=== PATIENT | male | born 1965 | race Caucasian/White ===

== ENCOUNTER 2022-10-15 11:03 | Outpatient (OUT) | payer OTHER, SELFPAY ==
--- NOTE | 2022-10-15 | XR_ITS ---
[address] [address] Patient Name: SANDRA CHRISTIAN MRN: [id number] date: 1965 Sex: M Assigned Patient Location: Current Patient Location: Accession/Order Number: [id number] Exam Date: 10/15/2022 11:13 Report Date: 10/15/2022 12:54 At the request of: VICKIE HART Procedure: XR ankle LT min 3V EXAM: XR ankle LT min 3V HISTORY: LEFT ANKLE PAIN COMPARISON: None. TECHNIQUE: 3 views Findings/impression: Status post intramedullary steffi fixation of the distal tibia to the calcaneus with fixation pins. Intact hardware. Moderate to severe degenerative changes of the ankle joint. Status post resection of the distal fibula. Surgical margins appears clean. Soft tissue swelling. Electronically authenticated by: FERN LOPEZ Date: 10/15/2022 12:54
== END 2022-10-15 11:04 | disposition home or self-care (01) ==
LOC: WC 11:10
PROVIDERS: PCP Nurse Practitioner Family; Visit Provider Podiatrist Foot & Ankle Surgery
DX: M25.572 Pain in left ankle and joints of left foot (principal)
CPT/HCPCS: 73610

== ENCOUNTER 2022-10-21 08:55 | Outpatient (OUT) | payer OTHER, SELFPAY ==
--- NOTE | 2022-10-21 09:59 | PM.PRESUREVA ---
History of Present Illness History of Present Illness Chief complaint: Hammertoes left foot Narrative: Patient presents for preadmission testing. Please see HPI from Dr. Chiang dated 10/15/2022. The patient reports that he was diagnosed with Parkinson's disease just over a year ago, and he has been established for care at the [facility]. He states he's had a 20+ pound unintentional weight loss in the past four months which he relates to a decrease in his appetite. He states he has had an adjustment to his carbidopa/levodopa recently due to increased tremors at night. Review of Systems ROS Narrative REVIEW OF SYSTEMS: Negative except as stated in HPI, ten or more systems reviewed. Constitutional: No fever , chills, weakness ENT: No sore throat or epistaxis Cardiovascular: No edema, chest pain, palpitations, or activity intolerance Respiratory: No shortness of breath, cough, or wheezing Gastrointestinal: No abdominal pain, constipation, diarrhea, or vomiting Genitourinary: No dysuria or hematuria Psychiatric: No mood changes [facility] Medical History (Updated 10/21/22 @ 09:37 by Naomi Gee NP) Surgical History (Updated 10/21/22 @ 09:26 by Naomi Gee NP) (06/19/22) (~07/23/21) (06/20/21) (06/17/21) (02/18/21) (~2019) (~2018) (~2020) Family History (Updated 10/21/22 @ 09:19 by Naomi Gee NP) Other Dementia Social History (Updated 10/21/22 @ 09:34 by Naomi Gee NP) Within the past year, how often did you have a drink containing alcohol: never Score interpretation: A score less than 4 is consistent with normal alcohol consumption. Smoking status: Current every day smoker What tobacco products do you use: cigarettes Pack-years instructions: Please document either packs per day or cigarettes per day in order for pack years to calculate correctly. If using both packs per day and cigarettes per day, please make sure that they denote the same thing. If they differ, pack-years will calculate based on packs per day. Packs Per Day Cigarettes Per Day 1/4 of a pack 5 1/2 a pack 10 3/4 of a pack 15 1 pack 20 1.5 pack 30 2 packs 40 2.5 packs 50 3 packs 60 Packs per day: 1 Years smoked: 40 Smoking pack-years: 40.00 Non-prescribed substance use: denies use Highest level of school completed/degree received: high school graduate Meds Home Medications and Allergies Home Medications Medication Instructions Recorded Confirmed Type carbidopa 25 mg-levodopa 100 mg 1 tab PO QID 10/21/22 10/21/22 History tablet multivitamin 1 tab PO DAILY 10/21/22 10/21/22 History naproxen sodium 220 mg capsule 220 mg PO BID PRN pain 10/21/22 10/21/22 History (Aleve) oxycodone-acetaminophen 5 mg-325 1 tab PO Q8H 10/21/22 10/21/22 History mg tablet pregabalin 50 mg capsule 50 mg PO Q12H 10/21/22 10/21/22 History sulfamethoxazole 800 1 tab PO Q12H 10/21/22 10/21/22 History mg-trimethoprim 160 mg tablet Allergies Allergy/AdvReac Type Severity Reaction Status Date / Time vancomycin Allergy Hives Verified 10/21/22 09:19 Exam Narrative Exam Narrative: Constitutional: Awake, alert, comfortable, well-appearing, nontoxic, interactive, vital signs as charted Head: Normocephalic, atraumatic Neck: Supple, normal appearance, normal range of motion, no meningeal signs, no lymphadenopathy Respiratory: No respiratory distress, breath sounds clear Cardiovascular: Regular rate and rhythm, strong and regular heart tones Skin: No rashes or induration, no lesions, only visible skin inspected Neuro: Patient ambulates with an antalgic rigid gait, obvious tremor bilateral upper extremities Psychiatric: Oriented ?3, normal affect Assessment and Plan Assessment and Plan (1) Will: Plan Partial left 4th and 5th toe amputations scheduled with Dr. Chiang 10/27/2022.
[2022-10-21 10:21] LABS: Basophils Absolute Auto 0.1 10^3/uL (0.0-0.1); Basophils Percent Auto 1.8 % (0.2-2.0); Eosinophils Absolute Auto 0.1 10^3/uL (0.0-0.7); Eosinophils Percent Auto 2.6 % (0.9-7.0); Hematocrit 44.5 % (42.0-54.0); Hemoglobin 14.9 g/dL (14.0-18.0); Immature Granulocytes Abs Auto 0.02 10^3/uL (0.00-0.03); Immature Granulocytes Pct Auto 0.4 % (0.0-0.5); Lymphocytes Absolute Auto 1.1 10^3/uL (1.2-3.8); Lymphocytes Percent Auto 24.7 % (20.5-60.0); Mean Corpuscular HGB Conc 33.5 g/dL (29.9-35.2); Mean Corpuscular Hemoglobin 29.4 pg (25.9-34.0); Mean Corpuscular Volume 87.8 fL (80.0-94.0); Mean Platelet Volume 12.2 fL (9.5-13.5); Monocytes Absolute Auto 0.5 10^3/uL (0.3-0.8); Monocytes Percent Auto 11.4 % (1.7-12.0); Neutrophils Absolute Auto 2.7 10^3/uL (1.4-6.5); Neutrophils Percent Auto 59.1 % (43.0-75.0); Platelet Count 199 10^3/uL (150-450); Red Blood Count 5.07 10^6/uL (4.70-6.10); Red Cell Distribution Width 13.2 % (11.0-15.0); White Blood Count 4.6 10^3/uL (4.0-11.0)
[2022-10-21 11:18] LABS: Alanine Aminotransferase 9 U/L (16-63); Albumin Globulin Ratio 1.1; Albumin Level 3.8 g/dL (3.4-5.0); Alkaline Phosphatase 100 U/L (46-116); Anion Gap 13.4; Aspartate Amino Transferase 12 U/L (15-37); BUN Creatinine Ratio 18.5; Bilirubin Total 0.5 mg/dL (0.2-1.0); Chloride 104 mmol/L (98-107); Estimated GFR (African America >60 (>=60); Estimated GFR (Non-African Ame >60 (>=60); Globulin 3.5 g/dL; Glucose 94 mg/dL (74-106); Potassium 4.4 mmol/L (3.5-5.1); Sodium 139 mmol/L (136-145); Total Protein 7.3 g/dL (6.4-8.2)
== END 2022-10-21 08:56 | disposition home or self-care (01) ==
LOC: PST 08:55
PROVIDERS: Nurse Practitioner; PCP Nurse Practitioner Family; Visit Provider Podiatrist Foot & Ankle Surgery
DX: Z01.812 Encounter for preprocedural laboratory examination (principal); Z01.818 Encounter for other preprocedural examination; M20.42 Other hammer toe(s) (acquired), left foot; I10 Essential (primary) hypertension; R63.4 Abnormal weight loss
CPT/HCPCS: 36415; 80048; 80053; 85025; G0463

== ENCOUNTER 2022-10-27 10:36 | Day surgery (SDC) | payer OTHER, SELFPAY ==
[2022-10-21 09:35] VITALS: BP 107/79; PULSE 62; RESP 14; TEMP 36.4; O2SAT 97; BMI 20.8
[2022-10-27] VITALS (10 sets, daily range): BP systolic 118–147; BP diastolic 76–86; PULSE 52–97; RESP 12–21; TEMP 36.1–36.2; O2SAT 97–100; BMI 20.9
[2022-10-27 11:04] LABS: Glucometer 87 mg/dL (74-106)
[2022-10-27] MEDS: LACTATED RINGER'S SOLUTION 1,000 ML 50 ML IV (11:16)
[2022-10-27] MEDS: CEFAZOLIN SODIUM/DEXTROSE,ISO 2 GM/50 ML PIGGYBACK IV (13:24)
--- NOTE | 2022-10-27 14:03 | P.ORON_ITS ---
Brief Operative Note Date of procedure: 10/27/22 Pre-op diagnosis: left hammertoe contractures, recurrent 4th and 5th toes Post-op diagnosis: same Procedure: PROCEDURES PERFORMED: Partial digital amputation of left 4th and 5th toes PROCEDURE IN DETAIL: Patient was identified in pre op and consent was reviewed. Correct side and site were identified and marked. Pre-op antibiotics were started. Patient was brought to OR suite and place on table in a supine position. General anesthesia was administered. Tourniquet applied. Operative extremity was prepped and draped in usual sterile fashion. Formal time-out was performed and the foot/ankle were exsanguinated and tourniquet inflated. A fishmouth incision was placed on the 4th toe. Full-thickness incision was taken down to bone to the level of the proximal interphalangeal joint. and all soft tissue attachments were released allowing disarticulation of the digit. The amputated digit was passed back table and sent for specimen. Tendinous structures were cut proximally. Surgical site was irrigated with normal saline. a rongeur was used to contour the distal aspect of the proximal phalanx for easy closure. No signs of infection were noted.surgical site was irrigated with copious saline. The incision was then closed in layers. and inspected for any nonviable tissue which was removed. A fishmouth incision was placed on the 5th toe. Full-thickness incision was taken down to bone to the level of the proximal interphalangeal joint. and all soft tissue attachments were released allowing disarticulation of the digit. The amputated digit was passed back table and sent for specimen. Tendinous structure s were cut proximally. Surgical site was irrigated with normal saline. a rongeur was used to contour the distal aspect of the proximal phalanx for easy closure. No signs of infection were noted.surgical site was irrigated with copious saline. The incision was then closed in layers. and inspected for any nonviable tissue which was removed. a bulky dry sterile dressing was applied followed by a surgical shoe. Patient tolerated procedure and anesthesia well transferred to the recovery room with vital signs stable and brisk capillary refill to all digits POSTOPERATIVE PLAN: Discharge home under family's care Post op instructions provided verbally and written prescription(s) were placed in chart WBAT in surgical shoe or cam boot x3 wks Follow-up in 2-3 weeks Implants: none Anesthesia: ANTOINE Surgeon: Kash Chiang Medical File Clerk: Raghu Ferrer Estimated blood loss (mL): 10 Pathology: other (toes 4 & 5) Condition: stable Disposition: PACU Preoperative Details Reason for procedure: patient is a 56-year-old male well-known to my practice was undergone multiple left foot and ankle procedures including ankle/hindfoot fusion and most recently correction of hammertoes 1-5 which was performed on 06/19/22. Hammertoe correction surgery was complicated by local infection of the 4th toe and loosening of the hardware which required removal. After removal of the screw in his 4th toe infection resolved with oral antibiotics. Unfortunately he recurrence of contractures predominate of his 4th toe and less so of his 5th toe which have caused pain and difficulty with shoes. He attempted multiple methods of padding and taping however with his Parkinson's he has difficulty with taping. Given his degree of pain which is not improved for a couple of months now she wished to undergo partial digital amputation. He was educated all potential risks and benefits of surgical versus continued nonsurgical treatment.
[2022-10-27] MEDS: BUPIVACAINE HCL 0.5% PF 50 MG/10 ML VIAL INJ (14:25)
--- NOTE | 2022-10-27 14:27 | XR_ITS ---
The [address] [address] Patient Name: SANDRA CHRISTIAN MRN: [id number] date: 1965 Sex: M Assigned Patient Location: [facility] Current Patient Location: [facility] Accession/Order Number: [id number] Exam Date: 10/27/2022 14:58 Report Date: 10/27/2022 15:42 At the request of: PAN GARSIA Procedure: XR foot LT min 3V EXAM: XR foot LT min 3V HISTORY: postop COMPARISON: None. TECHNIQUE: 3 view study FINDINGS: There are findings associated with previous ankle/hindfoot arthrodesis with a tibial steffi extending through talus and calcaneus. There is at least one interlocking screw proximally and 2 interlocking screws distally. The distal fibula has been resected. 2 screws crisscross the interphalangeal joint of the first toe. A screw traverses the phalanges of the second toe and similarly, a screw traverses the phalanges of the third toe. The middle and distal phalanges of the fourth and fifth toes have been resected. There is a mild hallux valgus deformity with mild narrowing at the first MP joint. Mild soft tissue swelling about the foot and ankle. XR/XR foot LT min 3V IMPRESSION: Postoperative changes at the ankle/hindfoot and all 5 toes. Mild hallux valgus deformity with early degenerative changes at the first MP joint. Electronically authenticated by: Prisca BURNHAM Date: 10/27/2022 15:42
[2022-10-27 14:51] LABS: Glucometer 106 mg/dL (74-106)
--- NOTE | 2022-10-27 15:07 | PC.NURSE ---
toes were amputated 4th and 5 toes on the left foot. no drainage dressing clean dry and intact.
== END 2022-10-27 15:45 | disposition home or self-care (01) ==
PROVIDERS: PCP Nurse Practitioner Family; Visit Provider Podiatrist Foot & Ankle Surgery
PROC: (CPT 1480; principal; 2022-10-27 11:50)
DX: M20.42 Other hammer toe(s) (acquired), left foot (principal); I10 Essential (primary) hypertension; G20 Parkinson's disease; R63.4 Abnormal weight loss; F17.210 Nicotine dependence, cigarettes, uncomplicated; Z79.82 Long term (current) use of aspirin; Z79.899 Other long term (current) drug therapy; Z98.1 Arthrodesis status
CPT/HCPCS: 28825 ×2; 36415; 73630; 82948; 88305; 88311; J2704

== ENCOUNTER 2022-12-30 09:43 | Outpatient (OUT) | payer OTHER, SELFPAY ==
--- NOTE | 2022-12-30 | XR_ITS ---
The [address] [address] Patient Name: SANDRA CHRISTIAN MRN: [id number] date: 1965 Sex: M Assigned Patient Location: [facility] Current Patient Location: [facility] Accession/Order Number: [id number] Exam Date: 12/30/2022 10:00 Report Date: 12/30/2022 22:38 At the request of: VICKIE HART Procedure: XR ankle LT min 3V EXAM: XR ankle LT min 3V, XR foot LT min 3V HISTORY: Postoperative ankle pain COMPARISON: Foot x-rays 08/26/2022 and 10/27/2022. Ankle x-rays 10/15/2022 TECHNIQUE: 3 views of the ankle FINDINGS: IMPRESSION: Again demonstrated is at the anterior 32.6 mm of the posterior to anterior calcaneal screw is lying within the plantar subcutaneous soft tissues beneath the midfoot. Patient has undergone retrograde intramedullary fixation of the calcaneus, talus and tibia. There is no osseous incorporation of the attempted arthrodesis of the talocrural articulation. The subtalar arthrodesis appears ossified. Again demonstrated is lucency measuring approximately 3.5 mm between the intramedullary nail and the tibia, and approximately 3.3 mm between the intramedullary nail in the calcaneus. There has been resection of the distal fibula. There has been amputation of the fourth and fifth distal and middle phalanges and the head of the proximal phalanges. 2 screw attempted retrograde arthrodesis of the first IP joint with no osseous incorporation. Single screw retrograde attempted arthrodesis of the second and third phalanges with no osseous incorporation of the PIP and DIP joint spaces. Moderate degenerative changes of the first metatarsophalangeal joint. No visualized acute fracture, dislocation, subluxation or osseous lesion. No visualized discrete acute soft tissue edema. Electronically authenticated by: SHIRLEY RUIZ Date: 12/30/2022 22:38
--- NOTE | 2022-12-30 | XR_ITS ---
The [address] [address] Patient Name: SANDRA CHRISTIAN MRN: [id number] date: 1965 Sex: M Assigned Patient Location: [facility] Current Patient Location: [facility] Accession/Order Number: [id number] Exam Date: 12/30/2022 10:00 Report Date: 12/30/2022 22:38 At the request of: VICKIE HART Procedure: XR foot LT min 3V EXAM: XR ankle LT min 3V, XR foot LT min 3V HISTORY: Postoperative ankle pain COMPARISON: Foot x-rays 08/26/2022 and 10/27/2022. Ankle x-rays 10/15/2022 TECHNIQUE: 3 views of the ankle FINDINGS: IMPRESSION: Again demonstrated is at the anterior 32.6 mm of the posterior to anterior calcaneal screw is lying within the plantar subcutaneous soft tissues beneath the midfoot. Patient has undergone retrograde intramedullary fixation of the calcaneus, talus and tibia. There is no osseous incorporation of the attempted arthrodesis of the talocrural articulation. The subtalar arthrodesis appears ossified. Again demonstrated is lucency measuring approximately 3.5 mm between the intramedullary nail and the tibia, and approximately 3.3 mm between the intramedullary nail in the calcaneus. There has been resection of the distal fibula. There has been amputation of the fourth and fifth distal and middle phalanges and the head of the proximal phalanges. 2 screw attempted retrograde arthrodesis of the first IP joint with no osseous incorporation. Single screw retrograde attempted arthrodesis of the second and third phalanges with no osseous incorporation of the PIP and DIP joint spaces. Moderate degenerative changes of the first metatarsophalangeal joint. No visualized acute fracture, dislocation, subluxation or osseous lesion. No visualized discrete acute soft tissue edema. Electronically authenticated by: SHIRLEY RUIZ Date: 12/30/2022 22:38
== END 2022-12-30 09:44 | disposition home or self-care (01) ==
LOC: RAD 09:43
PROVIDERS: PCP Nurse Practitioner Family; Visit Provider Podiatrist Foot & Ankle Surgery
DX: M25.572 Pain in left ankle and joints of left foot (principal)
CPT/HCPCS: 73610; 73630

== ENCOUNTER 2023-01-05 09:15 | Outpatient (OUT) | payer OTHER, SELFPAY ==
--- NOTE | 2023-01-05 09:19 | CT_ITS ---
[address] [address] Patient Name: SANDRA CHRISTIAN MRN: [id number] date: 1965 Sex: M Assigned Patient Location: CT Current Patient Location: CT Accession/Order Number: [id number] Exam Date: 01/05/2023 09:30 Report Date: 01/05/2023 16:18 At the request of: VICKIE HART Procedure: CT ankle LT wo con EXAMINATION: CT ankle LT wo con HISTORY: Post Traumatic Arthritis Left Ankle COMPARISON: CT ankle left 11/14/2021 TECHNIQUE: Multi-planar CT images were created without and/or with IV contrast according to examination type. Dose reduction techniques were achieved by using automated exposure control and/or adjustment of mA and/or kV according to patient size and/or use of iterative reconstruction technique. FINDINGS: BONES: Mechanical fusion ankle joint and hindfoot via intramedullary steffi and locking screws; no hardware fracture, loosening, or appreciable change in alignment/positioning. Advanced degenerative changes of the ankle joint and hindfoot. No fracture, dislocation, or acute abnormality. Prior resection of distal fibula. SOFT TISSUES: Stable areas of chronic scarring. EFFUSION: None visible. OTHER: Negative. CT/CT ankle LT wo con IMPRESSION: 1. Stable surgical changes without evidence of hardware failure or change in alignment. 2. Stable advanced degenerative changes. Electronically authenticated by: SAURAV KERNS Date: 01/05/2023 16:18
== END 2023-01-05 09:16 | disposition home or self-care (01) ==
LOC: CT 09:16
PROVIDERS: PCP Nurse Practitioner Family; Visit Provider Podiatrist Foot & Ankle Surgery
DX: M19.172 Post-traumatic osteoarthritis, left ankle and foot (principal)
CPT/HCPCS: 73700

== ENCOUNTER 2023-06-18 12:52 | Outpatient (OUT) | payer OTHER, SELFPAY ==
--- NOTE | 2023-06-18 | XR_ITS ---
The [address] [address] Patient Name: SANDRA CHRISTIAN MRN: [id number] date: 1965 Sex: M Assigned Patient Location: Current Patient Location: Accession/Order Number: [id number] Exam Date: 06/18/2023 12:58 Report Date: 06/20/2023 06:10 At the request of: KAR RAPHAEL Procedure: XR foot LT min 3V PROCEDURE: XR foot LT min 3V, XR ankle LT min 3V HISTORY: LEFT FOOT PAIN , left ankle pain, swelling, drainage COMPARISON: XR foot and ankle 12/30/2022 FINDINGS: BONES:Prior mechanical fusion of the interphalangeal joints of the first, second, third toes via lag screws. 3 mm backing out of the screw within the second toe, and bone erosion within tip of second distal phalanx surrounding the screw. Partial resection of fourth and 5th toes. Ankle and hindfoot fusion via intramedullary steffi and locking screws; unchanged. Prior resection of distal fibula. SOFT TISSUES:Soft tissue swelling involving tip of second toe. EFFUSION:None visible. OTHER: Negative. XR/XR foot LT min 3V IMPRESSION: 1. Mild backing out of the screw within the second toe and slight osseous changes involving the tip of the second distal phalanx concerning for osteomyelitis. 2. Stable appearance of remaining surgical changes. Electronically authenticated by: SAURAV KERNS Date: 06/20/2023 06:10
--- NOTE | 2023-06-18 | XR_ITS ---
The [address] [address] Patient Name: SANDRA CHRISTIAN MRN: [id number] date: 1965 Sex: M Assigned Patient Location: Current Patient Location: Accession/Order Number: [id number] Exam Date: 06/18/2023 12:58 Report Date: 06/20/2023 06:10 At the request of: KAR RAPHAEL Procedure: XR ankle LT min 3V PROCEDURE: XR foot LT min 3V, XR ankle LT min 3V HISTORY: LEFT FOOT PAIN , left ankle pain, swelling, drainage COMPARISON: XR foot and ankle 12/30/2022 FINDINGS: BONES:Prior mechanical fusion of the interphalangeal joints of the first, second, third toes via lag screws. 3 mm backing out of the screw within the second toe, and bone erosion within tip of second distal phalanx surrounding the screw. Partial resection of fourth and 5th toes. Ankle and hindfoot fusion via intramedullary steffi and locking screws; unchanged. Prior resection of distal fibula. SOFT TISSUES:Soft tissue swelling involving tip of second toe. EFFUSION:None visible. OTHER: Negative. XR/XR ankle LT min 3V IMPRESSION: 1. Mild backing out of the screw within the second toe and slight osseous changes involving the tip of the second distal phalanx concerning for osteomyelitis. 2. Stable appearance of remaining surgical changes. Electronically authenticated by: SAURAV KERNS Date: 06/20/2023 06:10
== END 2023-06-18 12:53 | disposition home or self-care (01) ==
LOC: EC 12:52
PROVIDERS: PCP Nurse Practitioner Family; Visit Provider Physician Assistant
DX: M19.172 Post-traumatic osteoarthritis, left ankle and foot (principal); Z98.890 Other specified postprocedural states
CPT/HCPCS: 73610; 73630

== ENCOUNTER 2023-06-19 14:23 | Outpatient (OUT) | payer OTHER, SELFPAY | END 2023-06-19 14:24 | disposition home or self-care (01) | LOC: PST 14:24 | PROVIDERS: PCP Nurse Practitioner Family; Visit Provider Podiatrist Foot & Ankle Surgery | DX: Z01.818 Encounter for other preprocedural examination (principal); T84.84XA Pain due to internal orthopedic prosthetic devices, implants and grafts, initial encounter; L03.032 Cellulitis of left toe ==

== ENCOUNTER 2023-06-23 09:20 | Emergency (ER) | payer OTHER, SELFPAY ==
[2023-06-23 09:25] VITALS: BP 146/101; PULSE 96; RESP 18; TEMP 36.8; O2SAT 98; BMI 22.4
[2023-06-23 09:35] VITALS: PULSE 69
--- NOTE | 2023-06-23 09:53 | ED_ITS ---
HPI - General Adult General Chief complaint: Extremity Problem, Nontraumatic Stated complaint: pain in left toe Time Seen by Provider: 06/23/23 09:23 Source: patient Mode of arrival: Wheelchair Limitations: physical limitation History of Present Illness HPI narrative: 57-year-old male to the emergency department she complained of pain in his left 2nd toe. Patient has had ongoing discomfort in this toe for some time. He was scheduled to have an amputation of this toe yesterday however this the surgical appointment due to an issue getting a ride. He is on Augmentin and Bactrim at home for this. His facing machine operator is aware of his continuing pain. He refilled his Percocet just two days ago and has been taking this with moderate relief of symptoms. Patient reports he continues to hurt and he just wants a cut off at this point. Related Data Home Medications Medication Instructions Recorded Confirmed carbidopa 25 mg-levodopa 100 mg 1 tab PO QID 10/21/22 06/23/23 tablet multivitamin 1 tab PO DAILY 10/21/22 06/23/23 naproxen sodium 220 mg capsule 220 mg PO BID PRN pain 10/21/22 06/23/23 (Aleve) oxycodone-acetaminophen 5 mg-325 1 tab PO Q8H 10/21/22 06/23/23 mg tablet pregabalin 50 mg capsule 50 mg PO Q12H 10/21/22 06/23/23 amoxicillin 875 mg-potassium 1 tab PO Q12H 06/23/23 06/23/23 clavulanate 125 mg tablet mirtazapine 15 mg tablet 15 mg PO .QHS 06/23/23 06/23/23 sulfamethoxazole 800 1 tab PO Q12H 06/23/23 06/23/23 mg-trimethoprim 160 mg tablet Previous Rx's Medication Instructions Recorded cephalexin 500 mg capsule 500 mg PO Q6H 7 days #28 caps 06/23/23 Allergies Allergy/AdvReac Type Severity Reaction Status Date / Time vancomycin Allergy Hives Verified 06/23/23 09:29 Review of Systems ROS Status of ROS 10 or more systems reviewed and unremark able except as noted in history and below [facility] Medical History (Updated 06/23/23 @ 09:45 by Ryan Shoemaker MD) Neck pain ?M54.2 - Cervicalgia (ICD-10) Arthritis ?M19.90 - Unspecified osteoarthritis, unspecified site (ICD-10) Insomnia ?G47.00 - Insomnia, unspecified (ICD-10) Depression ?F32.A - Depression, unspecified (ICD-10) Anxiety ?F41.9 - Anxiety disorder, unspecified (ICD-10) Kidney stones ?N20.0 - Calculus of kidney (ICD-10) Hammertoe ?M20.40 - Other hammer toe(s) (acquired), unspecified foot (ICD-10) Tremor ?R25.1 - Tremor, unspecified (ICD-10) Parkinson disease ?G20 - Parkinson's disease (ICD-10) Acquired hallux malleus ?M20.30 - Hallux varus (acquired), unspecified foot (ICD-10) Surgical History (Updated 10/21/22 @ 09:26 by Naomi Gee NP) History of appendectomy ?Z90.49 - Acquired absence of other specified parts of digestive tract (ICD- 10) H/O arthroscopy of shoulder ?Z98.890 - Other specified postprocedural states (ICD-10) History of total hip replacement (~2017) ?Z96.649 - Presence of unspecified artificial hip joint (ICD-10) History of total hip replacement (~2018) ?Z96.649 - Presence of unspecified artificial hip joint (ICD-10) Status post ORIF of fracture of ankle (~2020) ?Z98.890 - Other specified postprocedural states (ICD-10) ?Z87.81 - Personal history of (healed) traumatic fracture (ICD-10) History of ankle surgery (02/18/21) ?Z98.890 - Other specified postprocedural states (ICD-10) Status post peripherally inserted central catheter (PICC) central line placement ?Z95.828 - Presence of other vascular implants and grafts (ICD-10) H/O foot surgery (06/17/21) ?Z98.890 - Other specified postprocedural states (ICD-10) H/O foot surgery (06/20/21) ?Z98.890 - Other specified postprocedural states (ICD-10) H/O foot surgery (~07/23/21) ?Z98.890 - Other specified postprocedural states (ICD-10) H/O foot surgery (06/19/22) ?Z98.890 - Other specified postprocedural states (ICD-10) Family History (Updated 10/21/22 @ 09:19 by Naomi Gee NP) Other Dementia Social History (Updated 06/19/23 @ 12:58 by Vicky Junior RN) Smoking status: Current some day smoker Second hand tobacco smoke exposure: No Non-prescribed substance use: denies use Previous occupational history: disability Highest level of school completed/degree received: high school graduate Exam Narrative Exam Narrative: VITALS: I have reviewed the triage vital signs. GENERAL: Well developed, well appearing adult in no acute distress. NEURO: Alert and oriented. Moves all extremities. Face is symmetric and expressive. EYES: PERRL. No scleral icterus or conjunctival injection. No discharge. HENT: Normocephalic, atraumatic. Hearing is grossly intact. Nares grossly patent and without discharge. Mucous membranes moist. NECK: No JVD. Patient moves neck without restriction. LEFT FOOT: Toes 4&5 are surgically absent. Limit similar color and temperature to the contralateral extremity. DP and PT pulses are intact. There is some mild edema, redness, warmth to the 2nd digit. SKIN: Warm and dry. Normal turgor. No rash or lesions appreciated. PSYCH: Mood, affect, and interaction is appropriate to the setting. Constitutional Vital Signs, click to edit/add: Last Vital Signs Temp 98.2 F 06/23/23 09:25 Pulse 69 06/23/23 09:35 Resp 18 06/23/23 09:25 BP 146/101 H 06/23/23 09:25 Pulse Ox 98 06/23/23 09:25 O2 Del Method Room Air 06/23/23 09:25 Course Vital Signs Vital signs: Vital Signs Temperature 98.2 F 06/23/23 09:25 Pulse Rate 96 H 06/23/23 09:25 Respiratory Rate 18 06/23/23 09:25 Blood Pressure 146/101 H 06/23/23 09:25 Pulse Oximetry 98 06/23/23 09:25 Oxygen Delivery Method Room Air 06/23/23 09:25 Temperature 98.2 F 06/23/23 09:25 Pulse Rate 69 06/23/23 09:35 Respiratory Rate 18 06/23/23 09:25 Blood Pressure 146/101 H 06/23/23 09:25 Pulse Oximetry 98 06/23/23 09:25 Oxygen Delivery Method Room Air 06/23/23 09:25 Medical Decision Making MDM Narrative Medical decision making narrative: 57-year-old male with known hardware failure/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 Vital stable, the patient is afebrile. He does appear to have a mild cellulitis. He is currently on Augmentin and Bactrim. He is taking Percocet at home for pain as prescribed by his facing machine operator. Case was discussed with Dr. Chiang via telephone. Patient is scheduled for amputation on Thursday of this toe. Current regimen unless he becomes septic and needs admission. No further recommendations. Patient is metabolically stable. He is not septic. He has a mild infection. We'll discontinue Augmentin and place him on 4 times a day Keflex. He'll continue taking his Percocet for pain. He is updated that Dr. Chiang is out of town and the release and eventual bee on Thursday. The patient agrees with this plan. Return precautions were discussed. All questions were answered. The patient was discharged home. Medical Records Medical records reviewed: Yes I reviewed the patient's medical records Discharge Plan Discharge Stand Alone Forms: Portal Instructions Chief Complaint: Extremity Problem, Nontraumatic Clinical Impression: Cellulitis Patient Disposition: Home, Self-Care Time of Disposition Decision: 09:45 Condition: Good Mode of Transportation: Private Vehicle Prescriptions / Home Meds: New cephalexin 500 mg capsule 500 mg PO Q6H 7 Days Qty: 28 0RF No Action carbidopa-levodopa 25-100 mg tablet 1 tab PO QID oxycodone-acetaminophen 5-325 mg tablet 1 tab PO Q8H pregabalin 50 mg capsule 50 mg PO Q12H naproxen sodium [Aleve] 220 mg capsule 220 mg PO BID PRN (Reason: pain) multivitamin Tablet 1 tab PO DAILY amoxicillin-pot clavulanate 875-125 mg tablet 1 tab PO Q12H sulfamethoxazole-trimethoprim 800-160 mg tablet 1 tab PO Q12H mirtazapine 15 mg tablet 15 mg PO .QHS Print Language: Japanese Instructions: Cellulitis (ED) Additional Instructions: Start Keflex. Stop Augmentin. Keep surgical appt on Thursday. Referrals: MONIQUE MUÑOZ [Primary Care Provider] - 1 week Kash Chiang DPM [Physician] - 1 week (Follow-up with Андрей as scheduled on Thursday. )
== END 2023-06-23 09:55 | disposition home or self-care (01) ==
PROVIDERS: Emergency Provider Student in an Organized Health Care Education/Training Program; PCP Nurse Practitioner Family
DX: L03.032 Cellulitis of left toe (principal); Z79.899 Other long term (current) drug therapy; M19.90 Unspecified osteoarthritis, unspecified site; G47.00 Insomnia, unspecified; F32.A Depression, unspecified; F41.9 Anxiety disorder, unspecified; Z87.442 Personal history of urinary calculi; G20.A1 Parkinson's disease without dyskinesia, without mention of fluctuations; Z96.649 Presence of unspecified artificial hip joint; Z98.890 Other specified postprocedural states; Z87.81 Personal history of (healed) traumatic fracture; Z90.49 Acquired absence of other specified parts of digestive tract; F17.210 Nicotine dependence, cigarettes, uncomplicated; Z89.422 Acquired absence of other left toe(s)
CPT/HCPCS: 99283

== ENCOUNTER 2023-07-20 08:38 | Outpatient (OUT) | payer OTHER, SELFPAY ==
--- OUTSIDE RECORDS SUMMARY | 2023-07-20 08:52 | XMS_ITS | CCD ---
Author Organization [facility] Care Team Providers Care Chief Operator Hydroformer Name Role Phone SUMAN NGUYEN JR Admitting Unavailable SUMAN NGUYEN JR Attending Unavailable SUMAN NGUYEN JR Referring Unavailable KATE MUELLER (NANCIE) Referring Unava ilable SUMAN NGUYEN JR Admitting Unavailable SUMAN NGUYEN JR Attending Unavailable Michael Shah Unavailable Andi Eason Unavailable JALYN Muñoz Primary Care Provider DO James Rodriguez Attending Provider [phone] EDE Fair Attending Provider [phone] NANCIE Oliver Attending Provider [phone] EDE Hart Attending Provider [phone] JALYN Muñoz Primary Care Provider [phone] Vickie Hart Admitting Unavailable Vickie Hart Attending Unavailable Anna Muñoz Primary Care Unavailable Evelin Oliver Admitting Unavailable Evelin Oliver Attending Unavailable Anna Muñoz Primary Care Unavailable Manjula Amar Suresh Admitting Unavailable Manjula Amar R Attending Unavailable Anna Muñoz Primary Care Unavailable James Rodriguez Admitting UnavailJames Lucas Attending UnavailAnna Toure Primary Care Unavailable Yumi, Andi Admitting Unavailable Yumi, Andi Attending Unavailable NO FAMILY, PHYSICIAN Primary Care Unavailable Yumi, Andi Admitting Unavailable Yumi, Andi Attending Unavailable Yumi, Andi Admitting Unavailable Yumi, Andi Attending Unavailable Yumi, Andi Admitting Unavailable Yumi, Andi Attending Unavailable Vickie Hart Admitting Unavailable Highlander, Peter D Attending Unavailable [facility], Services Primary Care Unavaila ble Highlander, Peter D Admitting Unavailable Highlander, Peter D Attending Unavailable [facility] Primary Care Unavaila ble Andi Eason Admitting Unavailable Andi Eason Attending Unavailable NO FAMILY, PHYSICIAN Primary Care Unavailable Highlander, Peter D Admitting Unavailable Highlander, Peter D Attending Unavailable [facility] Services Primary Care Unavaila ble Highlander, Peter D Admitting Unavailable Highlander, Peter D Attending Unavailable [facility] Services Primary Care Unavaila ble Rio Alanis Primary Care Provider Chinedu [place], Princess Unavailable [phone] WANDA, ANNA Primary Care Unavailable WEST, SHIRLEY Sapp Consulting Unavailable IJEOMA, KAR Admitting Unavailable IJEOMA, KAR Attending Unavailable IJEOMA, KAR Consulting Unavailable HOY ., DR YOU Admitting Unavailable HOY ., DR YOU Attending Unavailable WANDA, ANNA Primary Care Unavailable HOY ., DR YOU Consulting Unavailable Saurav Kerns Consulting Unavailable NADERER, DR GINNA Hart Consulting Unavailable ADY ., PAN MATTHEW Consulting Unavailable DIAB ., AFTAB Consulting Unavailable WANDA, ANNA Primary Care Unavailable HIGHLANDER, PETER D Attending Unavailable HIGHLANDER, PETER D Consulting Unavailable HIGHLANDER, PETER D Admitting Unavailable SEB GRAVES Consulting Unavailable [facility] V Consulting Unavailable WANDA, ANNA Primary Care Unavailable IJEOMA, KAR Admitting Unavailable IJEOMA, KAR Attending Unavailable IJEOMA, KAR Consulting Unavailable WANDA, ANNA Primary Care Unavailable HIGHLANDER, PETER D Admitting Unavailable Zieber, Saurav Consulting Unavailable HIGHLANDER, PETER D Attending Unavailable HIGHLANDER, PETER D Consulting Unavailable Zieber, Saurav Consulting Unavailable HIGHLANDER, PETER D Attending Unavailable HIGHLANDER, PETER D Admitting Unavailable HIGHLANDER, PETER D Consulting Unavailable WANDA, ANNA Primary Care Unavailable HIGHLANDER, PETER D Consulting Unavailable HIGHLANDER, PETER D Attending Unavailable HIGHLANDER, PETER D Admitting Unavailable KARLA MANZANO Consulting Unavailable ADY ., PAN MATTHEW Consulting Unavailable CANDICE LIEBERMAN Consulting Unavailable CHE II, CLARE Consulting Unavailable OTT ., DR FARRUKH Kimble Admitting Unavailable WANDA, ANNA Primary Care Unavailable MISC, DR REID Consulting Unavailable OTT ., DR FARRUKH Kimble Attending Unavailable OTT ., DR FARRUKH Kimble Consulting Unavailable HIGHLANDER, PETER D Admitting Unavailable HIGHLANDER, PETER D Attending Unavailable Zieber, Saurav Consulting Unavailable HIGHLANDER, VICKIE Garibay Admitting Unavailable HIGHLANDER, VICKIE Garibay Attending Unavailable HIGHLANDER, VICKIE Garibay Consulting Unavailable HIGHLANDER, VICKIE Garibay Attending Unavailable HIGHLANDER, VICKIE Garibay Admitting Unavailable HIGHLANDER, VICKIE Garibay Admitting Unavailable HIGHLANDER, VICKIE Garibay Attending Unavailable ZieberSaurav Consulting Unavailable HIGHLANDER, VICKIE Garibay Admitting Unavailable HIGHLANDER, VICKIE Garibay Attending Unavailable HIGHLANDER, VICKIE Garibay Consulting Unavailable HIGHLANDER, VICKIE Garibay Admitting Unavailable HIGHLANDER, VICKIE Garibay Attending Unavailable HIGHLANDER, VICKIE Garibay Admitting Unavailable HIGHLANDER, VICKIE Garibay Attending Unavailable Zieber, Saurav Consulting Unavailable [facility] Primary Care Unavailable HIGHLANDER, VICKIE Garibay Attending Unavailable HIGHLANDER, VICKIE Garibay Admitting Unavailable HIGHLANDER, VICKIE Garibay Consulting Unavailable OTT ., DR FARRUKH Kimble Admitting Unavailable [facility] Primary Care Unavailable OTT ., DR FARRUKH Kimble Attending Unavailable OTT ., DR FARRUKH Kimble Consulting Unavailable ZieberSaurav Consulting Unavailable [facility] Primary Care Unavailable HIGHLANDER, VICKIE Garibay Attending Unavailable HIGHLANDER, VICKIE Garibay Admitting Unavailable HIGHLANDER, VICKIE Garibay Consulting Unavailable [facility] Consulting Unavailable HIGHLANDER, VICKIE Garibay Attending Unavailable HIGHLANDER, VICKIE Garibay Admitting Unavailable HIGHLANDER, VICKIE Garibay Consulting Unavailable Zieber, Saurav Consulting Unavailable HIGHLANDER, VICKIE Garibay Attending Unavailable HIGHLANDER, VICKIE Garibay Admitting Unavailable HIGHLANDER, VICKIE Garibay Consulting Unavailable OTT ., DR FARRUKH Kimble Consulting Unavailable [facility] Care Unavailable OTT ., DR FARRUKH Kimble Admitting Unavailable HIGHLANDER, VICKIE Garibay Referring Unavailable OTT ., DR FARRUKH Kimble Attending Unavailable HIGHLANDER, VICKIE Garibay Attending Unavailable HIGHLANDER, VICKIE Garibay Admitting Unavailable RIO ALANIS Primary Care Unavailab miranda WEAVERIB, UMAR A Attending Unavailable LAURIE, UMAR A Attending Unavailable ALLANTERERRIO Primary Care Unavailab RIO Abreu Primary Care Unavailab SUMA Sanchez Referring Unavailable ALLANTERERRIO Primary Care Unavailab SUMA Sanchez Attending Unavailable LAURIE, UMAR A Referring Unavailable SCHFEITERERRIO Primary Care Unavailab le LAURIE, UMAR A Attending Unavailable WANDA ANNA S Primary Care Unavailable LIOR RAMIREZ Attending Unavailable SUMAN NGUYEN Referring Unavailable BANNER, ANNA S Primary Care Unavailable Allergies Allergy Classification Reported Allergen(s) Allergy Type Date of Onset Reaction(s) Facility (5 sources) Vancomycin; Translations: [VANCOMYCIN] Drug Allergy 2 Other: See Comments [facility] (1 source) Vancomycin Drug Allergy 2 [facility] Medications Current Medications Medication Drug Class(es) Dates Sig (Normalized) Sig (Original) acetaminophen 500 mg oral capsule (15 sources) Start: 12-26-2020 Acetaminophen 500 MG 1 capsule as needed Orally every 6-8 hrs Dec, Active Start: 12-26-2020 Acetaminophen 500 MG 1 capsule as needed Orally every 6-8 hrs Dec, Active Start: 10-23-2020 Acetaminophen 500 mg cap Take by mouth. 0 10/23/2020 Active Start: 10-23-2020 take 1000 mg by mout h every eight hours Acetaminophen Active 1000 MG PO Q8H 180 October 23, 2020 12:00am Start: 07-02-2017 End: 07-16-2022 take 2 tablets by mouth every eight hours acetaminophen (TYLENOL) 500 mg tablet Take 2 tablets by mouth every 8 hours. (Mild pain reliever) 90 tablet 0 07/02/2017 07/16/2022 Discontinued Comment on above: Take 2 tablets by mo uth every 8 hours. (Mild pain reliever) Take by mouth. acetaminophen 325 mg / oxyCODONE hydrochloride 10 mg oral tablet (8 sources) Opioid Agonist take 1 tablet by mouth every six hours oxyCODONE-Acetaminophe n 10-325 MG 1 tablet as needed Orally every 6 hrs Active alendronic acid 70 mg oral tablet (2 sources) Bisphosphonate take 1 tablet by mouth once daily Fosamax 70 MG 1 tablet 30 minutes before the first food, beverage or medicine of the day with plain water Orally Active apixaban 2.5 mg oral tablet (8 sources) Factor Xa Inhibitor Eliquis 2.5 MG as directed Orally bid Active ascorbic acid 500 mg oral tablet (3 sources) Vitamin C Start: take 1 tablet by mouth once daily Ascorbic Acid (Vitamin C) (Vitamin C) 500 mg tablet Active 500 MG PO Daily October 18, 2020 12:00am aspirin 81 mg delayed release oral tablet (8 sources) Platelet Aggregation Inhibitor, Nonsteroidal Anti-inflammatory Drug Start: 07-13-2 021 take 81 mg by mouth twice daily Aspirin Active 81 MG PO Twice daily 42 October 23, 2020 12:00am cefTRIAXone 2000 mg injection (1 source) Cephalosporin Antibacterial cefTRIAXone Sodium 2 GM as directed Injection Active cyclobenzaprine hydrochloride 10 mg oral tablet (14 sources) Muscle Relaxant Start: 021 take 10 mg by mouth every eight hours Cyclobenzaprine Active 10 MG PO Q8H 42 December 05, 2020 12:00am Start: 10-08-2020 End: 10-18-2020 take 1 tablet by mouth at bedtime Cyclobenzaprine (Flexeril) 10 mg Tablet Discontinued 10 MG PO Bedtime October 09, 2020 12:00am October 18, 2020 7:30am entacapone 200 mg oral tablet (1 source) Ainwbhse-P-Rluigrxqetkflteub Inhibitor take 1 tablet by mouth every twelve hours Entacapone 200 MG 1 tablet Orally Twice a day Active ibuprofen 800 mg oral tablet (20 sources) Nonsteroidal Anti-inflammatory Drug Start: 2020 End: 2020 take 1 tablet by mouth three times daily at mealtime as needed Ibuprofen 800 MG 1 tablet with food or milk as needed Orally Three times a day for 30 days Sep, Active Start: 10-08-2020 End: 10-18-2020 take 200 mg by mouth once daily Ibuprofen Discontinued 200 MG PO Daily October 08, 2020 12:00am October 18, 2020 7:29am Start: 04-13-2018 End: 02-03-2020 take 400 mg by mouth twice daily Ibuprofen Discontinued 400 MG PO Twice daily April 13, 2018 1:00am February 03, 2020 7:24pm IBUPROFEN ORAL T tigre by mouth. 0 Active ibuprofen 1 tab Oral Active Comment on above: Take by mouth. mirtazapine 15 mg oral tablet (2 sources) Start: 05-18-2023 End: 05-17-2024 take 1 tablet by mouth once daily at bedtime mirtazapine (REMERON) 15 mg tablet Take 1 tablet by mouth daily at bedtime. 90 tablet 3 05/18/2023 05/17/2024 Active Start: 11-03-2022 End: 05-02-2023 mirtazapine (REMERON) 15 mg tablet Take 1 tablet by mouth daily at bedtime. Take 0.5 tablets at bedtime for 2 weeks and then increase to 1 tab and continue on that dose 30 tablet 5 11/03/2022 05/02/2023 Active Comment on above: Take 1 tablet by santa th daily at bedtime. Take 0.5 tablets at bedtime for 2 weeks and then increase to 1 tab and continue on that dose Take 1 tablet by santa th daily at bedtime. Multivitamin preparation (3 sources) Start: 10-09-19 take 1 tablet by mouth once daily Multivitamin Active 1 TAB PO Daily October 08, 2020 12:00am Multivitamins (5 sources) take 1 tablet by mouth once daily Multivitamins 1 tablet Orally daily Active nabumetone 750 mg oral tablet (5 sources) Nonsteroidal Anti-inflammatory Drug take 1 tablet by mouth every twelve hours Nabumetone 750 MG 1 tablet Orally Twice a day for 30 day(s) Active ondansetron 4 mg disintegrating oral tablet (8 sources) Serotonin-3 Receptor Antagonist take 1 tablet by mouth every eight hours Ondansetron 4 MG 1 tablet on the tongue and allow to dissolve Orally tid Active oxyCODONE hydrochloride 5 mg oral tablet (18 sources) Opioid Agonist Start: 12-06-19 take 1 tablet by mouth every six hours Oxycodone (Roxicodone) 5 mg tablet Active 5 MG PO Q6H 40 December 05, 2020 Start: 10-23-2020 take 5 mg by mouth e very four hours Oxycodone Active 5 MG PO Every 4 hours 40 7 October 23, 2020 rifAMPin 300 mg oral capsule (4 sources) Rifamycin Antibacterial take 300 mg by mouth once daily rifAMPin 300 MG as directed Orally Once a day Active traMADol hydrochloride 50 mg oral tablet (5 sources) Opioid Agonist take 1 tablet by mouth every six hours traMADol HCl 50 MG 1 tablet as needed Orally every 6 hours for 7 days Active Vitamin C 500 MG (5 sources) Start: Vitamin C 500 MG as directed Orally Sep, Active Completed/Discontinued Medications Medication Drug Class(es) Dates Sig (Normalized) Sig (Original) acetaminophen 325 mg / HYDROcodone bitartrate 5 mg oral tablet (14 sources) Opioid Agonist Start: 10-07-2020 End: 10-23-2020 take 1 tablet by mouth every four to six hours Hydrocodone-Acetami nophen Discontinued 1 - 2 TAB PO EVERY 4-6 HOURS October 08, 2020 3:12pm October 23, 2020 3:31pm Start: 01-17-2017 End: 04-13-2018 take 1 tablet by mouth every four to six hours Hydrocodone-Acetaminophen (Winder) 5-325 mg tablet Discontinued 1 TAB PO EVERY 4-6 HOURS January 17, 2017 April 13, 2018 6:05pm take 1 tablet by santa th every six hours as needed Winder 5-325 MG 1 tablet as needed Orally every 6 hrs Active carbidopa 25 mg / levodopa 100 mg oral tablet (8 sources) Aromatic Amino Acid Decarboxylation Inhibitor, Aromatic Amino Acid Start: 12-31-2022 End: 07-15-2023 carbidopa-levodopa (SINEMET 25-100) 25-100 mg per tablet TAKE 1 TABLET BY MOUTH 5 TIMES DAILY (6:30 AM, 9:30 AM, 12:30 PM, 3:30 PM and 6:30 PM) 360 tablet 3 07/16/2023 Active Start: 06-21-2022 End: 12-31-2022 take 1 tablet by mouth four times daily, then take 8 tablets by mouth in the morning, then take 4 tablets by mouth in the evening, then take 8 tablets by mouth in the evening carbidopa-levodopa (SINEMET 25-100) 25-100 mg per tablet TAKE 1 TABLET BY MOUTH 4 TIMES DAILY (8 AM, NOON, 4 PM, 8 PM) 360 tablet 3 07/29/2022 12/31/2022 Discontinued Sinemet Active Comment on above: TAKE 1 TABLET BY SANTA TH 4 TIMES DAILY (8 AM, NOON, 4 PM, 8 PM) TAKE 1 TABLET BY SANTA TH 5 TIMES DAILY (6:30 AM, 9:30 AM, 12:30 PM, 3:30 PM and 6:30 PM) celecoxib 200 mg oral capsule (2 sources) Nonsteroidal Anti-inflammatory Drug Start: 9 End: 3 take 1 capsule by mouth twice daily celecoxib (CELEBREX) 200 mg capsule TAKE 1 CAPSULE BY MOUTH TWICE A DAY 60 capsule 0 08/30/2018 07/16/2022 Discontinued Comment on above: TAKE 1 CAPSULE BY MO [facility] TWICE A DAY diclofenac sodium 20 mg/ml topical solution (9 sources) Nonsteroidal Anti-inflammatory Drug Start: 9 End: 3 diclofenac sodium (PENNSAID) 20 mg/gram /actuation(2 %) sopm Indications: Trochanteric bursitis of left hip Apply 2 Pump to affected area twice daily. 1 Bottle 1 08/23/2018 07/16/2022 Discontinued Start: 11-03-2016 Voltaren 1 % a pply 1-2 grams to affected area Transdermal BID PRN Oct, Active Comment on above: Apply 2 Pump to affe cted area twice daily. 0.4 ml enoxaparin sodium 100 mg/ml prefilled syringe (6 sources) Low Molecular Weight Heparin Start: 10-10-19 21 End: 10-24-19 21 Enoxaparin (Lovenox) 40 mg/0.4 mL syringe Discontinued 40 MG SUBCUT Daily October 18, 2020 7:32am October 23, 2020 3:31pm MULTIVITAMIN WITH MINERALS (MULTIVITAMIN & MINERAL FORMULA ORAL) (5 sources) take 1 tablet by mouth once daily MULTIVITAMIN WITH MINERALS (MULTIVITAMIN & MINERAL FORMULA ORAL) Take 1 tablet by mouth once daily. 0 Active Comment on above: Take 1 tablet by santa th once daily. naproxen 500 mg oral tablet (8 sources) Nonsteroidal Anti-inflammatory Drug Start: 01-18-20 17 End: 04-13-19 19 take 1 tablet by mouth every twelve hours at mealtime Naproxen (Naprosyn) 500 mg tablet Discontinued 500 MG PO Q12H January 17, 2017 12:00am April 13, 2018 6:05pm administer with food or milk take 1 tablet by santa th every twelve hours as needed Aleve 220 MG 1 tablet Orally q12hrs prn Active predniSONE 20 mg oral tablet (8 sources) Start: 01-17-2017 End: 04-13-2018 take 60 mg by mouth once daily at mealtime Prednisone Discontinued 60 MG PO Daily January 17, 2017 12:00am April 13, 2018 6:05pm administer with food or milk Prednisone 1 tab Oral Active pregabalin 25 mg oral capsul e (10 sources) pregabalin (LYRI CA) 25 mg capsule 50 mg three times daily. Breakfast Lunch Dinner 0 Active pregabalin (LYRI CA) 25 mg capsule Lyrica Active 0 Active Lyrica Active Comment on above: Lyrica Active 50 mg three times da nereyda. Breakfast Lunch Dinner sulfamethoxazole 800 mg / trimethoprim 160 mg oral tablet (12 sources) Dihydrofolate Reductase Inhibitor Antibacterial, Sulfonamide Antimicrobial Start: 07-29-2021 sulfamethoxazole-t rimethoprim (BACTRIM DS) 800-160 mg per tablet Take by mouth q 12 HR. 0 07/29/2021 Active Start: 07-29-2021 take 1 tablet by santa th every twelve hours Bactrim DS 800-160 MG 1 tablet Orally Twice a day for 30 days Jul, Active take 1 tablet by santa th every twenty-four hours Bactrim DS 800-160 MG 1 tablet Orally Once daily for 30 days Active Comment on above: Take by mouth q 12 H R. Problems Active Problems Problem Classification Problem Date Documented Date Episodic/Chronic Acquired foot deformities (9 sources) Other hammer toe(s) (acquired), left foot; Translations: [Hallux varus (acquired), left foot] Onset: 06-17-2022 Chronic Acquired foot deformities (6 sources) Other deformities of toe(s) (acquired), left foot; Translations: [Valgus deformity, not elsewhere classified, left ankle] Onset: 11-20-2021 Episodic Anxiety disorders (1 source) Anxiety; Translations: [Anxiety disorder, unspecified] Chronic Bacterial infection; unspecified site (9 sources) Methicillin susceptible Staphylococcus aureus infection, unspecified site; Translations: [Methicillin susceptible Staphylococcus aureus infection as the cause of diseases classified elsewhere] Onset: 07-22-2021 Resolved: 12-23-2021 Episodic Chronic ulcer of skin (5 sources) Non-pressure chronic ulcer of left ankle with fat layer exposed; Translations: [N-PRSS CHRN ULCR LT ANK FAT EXPOSD] Onset: 10-11-2021 Chronic Complication of device; implant or graft (4 sources) Infection and inflammatory reaction due to other internal orthopedic prosthetic devices, implants and grafts, initial encounter; Translations: [Infection and inflammatory reaction due to internal fixation device of unspecified bone of leg, subsequent encounter] Onset: 07-29-2021 Resolved: 07-29-2021 Episodic E Codes: Fall (1 source) Unspecified fall, initial encounter; Translations: [Unspecified fall, initial encounter] Onset: 02-02-2023 Episodic Essential hypertension (1 source) Essential (primary) hypertension; Translations: [ESSENTIAL PRIMARY HYPERTENSION] Onset: 06-17-2022 Chronic Genitourinary symptoms and ill-defined conditions (1 source) Urge incontinence; Translations: [Urge incontinence of urine] Onset: 11-12-2022 Chronic Genitourinary symptoms and ill-defined conditions (1 source) Urgency of urination; Translations: [Urinary urgency] Onset: 11-12-2022 Episodic Infective arthritis and osteomyelitis (except that caused by tuberculosis or sexually transmitted disease) (6 sources) Chronic osteomyelitis with draining sinus, left ankle and foot; Translations: [Other osteomyelitis, ankle and foot] Onset: 10-10-2021 Chronic Joint disorders and dislocations; trauma-related (1 source) Traumatic arthropathy, left ankle and foot; Translations: [TRAUMATIC ARTHROPATHY LT ANKLE FOOT] Onset: 11-20-2021 Chronic Osteoarthritis (20 sources) Unilateral primary osteoarthritis, left hip; Translations: [Osteoarthritis of hip] Onset: 01-22-2017 01-17-2017 Chronic Other aftercare (1 source) long term care phlebotomist (current) use of aspirin; Translations: [TWISTER FRAME TENDER CURRENT USE OF ASPIRIN] Onset: 07-23-2022 Episodic Other aftercare (1 source) Other [facility] (current) drug therapy; Translations: [OTH TWISTER FRAME TENDER CURRENT DRUG THERAPY] Onset: 07-23-2022 Episodic Other connective tissue disease (1 source) Presence of left artificial hip joint; Translations: [Presence of left artificial hip joint] Onset: 04-27-2018 Chronic Other connective tissue disease (1 source) Presence of artificial hip joint, bilateral; Translations: [PRESENCE ARTIFICIAL HIP JOINT BILAT] Onset: 07-23-2022 Chronic Other connective tissue disease (1 source) Presence of unspecified artificial hip joint; Translations: [PRESENCE UNS ARTIFICIAL HIP JOINT] Onset: 02-28-2022 Chronic Other connective tissue disease (1 source) Presence of right artificial hip joint; Translations: [Presence of right artificial hip joint] Onset: 04-17-2023 Chronic Other connective tissue disease (1 source) Other symptoms and signs involving the musculoskeletal system; Translations: [Other symptoms and signs involving the musculoskeletal system] Onset: 12-05-2021 Episodic Other connective tissue disease (4 sources) Pain in left foot; Translations: [PAIN IN LEFT FOOT] Onset: 03-22-2022 Episodic Other connective tissue disease (1 source) Arthrodesis status; Translations: [ARTHRODESIS STATUS] Onset: 07-23-2022 Episodic Other nervous system disorders (1 source) Complex regional pain syndrome, type I; Translations: [Complex regional pain syndrome I, unspecified] Chronic Other nervous system disorders (1 source) Other chronic pain; Translations: [OTHER CHRONIC PAIN] Onset: 03-22-2022 Chronic Other non-traumatic joint disorders (1 source) Other specified arthritis, unspecified site; Translations: [OTHER SPECIFIED ARTHRITIS UNS SITE] Onset: 11-20-2021 Chronic Other non-traumatic joint disorders (5 sources) Pain in left ankle and joints of left foot; Translations: [PAIN IN LEFT ANKLE] Onset: 04-15-2022 Episodic Other non-traumatic joint disorders (1 source) Pain in right hip; Translations: [Pain in right hip] Onset: 03-27-2023 Episodic Parkinson`s disease (4 sources) Parkinson's disease; Translations: [Parkinson's disease] Onset: 07-23-2022 Chronic Poisoning by other medications and drugs (3 sources) Poisoning by unspecified drugs, medicaments and biological substances, accidental (unintentional), initial encounter; Translations: [Drug overdose] 02-03-2020 Episodic Rheumatoid arthritis and related disease (1 source) 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], left ankle and foot; Translations: [CHRN POSTRHEUMAT ARTHROP LT ANK FT] Onset: 09-30-2021 Chronic Skin and subcutaneous tissue infections (6 sources) Cellulitis of left lower limb; Translations: [Cutaneous abscess of left lower limb] Onset: 10-28-2021 Episodic Substance-related disorders (20 sources) Nicotine dependence, unspecified, uncomplicated; Translations: [Smoker] Onset: 04-20-2018 Resolved: 01-02-2021 Chronic Superficial injury; contusion (1 source) Contusion of left hand, initial encounter; Translations: [Contusion of left hand, initial encounter] Onset: 02-02-2023 Episodic Syncope (1 source) Syncope and collapse; Translations: [SYNCOPE AND COLLAPSE] Onset: 07-23-2022 Episodic Unclassified (1 source) Pain in left ankle and joints of left foot; Translations: [Pain in left ankle and joints of left foot] Onset: 12-10-2021 Unclassified (1 source) R29.898 - Other symptoms and signs involving the musculoskeletal system; Translations: [R29.898 - Other symptoms and signs involving the musculoskeletal system] Onset: 09-19-2021 Unclassified (1 source) A49.01 - Methicillin susceptible Staphylococcus aureus infection, unspecified site; Translations: [A49.01 - Methicillin susceptible Staphylococcus aureus infection, unspecified site] Onset: 08-16-2021 Unclassified (1 source) L02.416 - Cutaneous abscess of left lower limb; Translations: [L02.416 - Cutaneous abscess of left lower limb] Onset: 07-22-2021 Unclassified (1 source) Z51.81 - Encounter for therapeutic drug level monitoring; Translations: [Z51.81 - Encounter for therapeutic drug level monitoring] Onset: 07-15-2021 Unclassified (1 source) Cutaneous abscess of left lower limb; Translations: [Cutaneous abscess of left lower limb] Onset: 07-05-2021 Unclassified (1 source) M79.662 - Pain in left lower leg; Translations: [M79.662 - Pain in left lower leg] Onset: 05-21-2021 Unclassified (1 source) M24.572 - Contracture, left ankle; Translations: [M24.572 - Contracture, left ankle] Onset: 03-26-2021 Unclassified (1 source) S82.872A - Displaced pilon fracture of left tibia, initial encounter for closed fracture; Translations: [S82.872A - Displaced pilon fracture of left tibia, initial encounter for closed fracture] Onset: 01-29-2021 Unclassified (1 source) M25.572 - Pain in left ankle and joints of left foot; Translations: [M25.572 - Pain in left ankle and joints of left foot] Onset: 01-22-2021 Unclassified (1 source) CONTACT W/AND (SUSP) EXPOS COVID-19; Translations: [CONTACT W/AND (SUSP) EXPOS COVID-19] Onset: 07-23-2022 Unclassified (1 source) Low back pain, unspecified; Translations: [Low back pain, unspecified] Onset: 03-27-2023 Past or Other Problems Problem Classification Problem Date Documented Da te Episodic/Chronic Complications of surgical procedures or medical care (5 sources) Other complications of procedures, not elsewhere classified, initial encounter; Translations: [OT COMPLICATIONS PROC NEC INITIAL] Onset: 09-30-2021 Episodic Fluid and electrolyte disorders (5 sources) Hyperkalemia; Translations: [Hyperkalemia] Onset: 04-28-2018 04-28-2018 Episodic Fracture of lower limb (20 sources) Closed pilon fracture; Translations: [Displaced pilon fracture of left tibia, subsequent encounter for closed fracture with malunion] Onset: 01-02-2021 Resolved: 01-16-2021 Episodic Other acquired deformities (1 source) Unequal limb length (acquired), unspecified site; Translations: [UNEQUAL LIMB LENGTH ACQ UNS SITE] Onset: 02-28-2022 Episodic Other aftercare (2 sources) skilled nursing (current) use of antibiotics; Translations: [Z79.2 - long term care phlebotomist (current) use of antibiotics] Onset: 07-22-2021 Resolved: 10-24-2021 Episodic Other aftercare (1 source) Encounter for therapeutic drug level monitoring; Translations: [Encounter for therapeutic drug level monitoring] Onset: 07-08-2021 Episodic Other bone disease and musculoskeletal deformities (1 source) Other specified disorders of bone density and structure, left ankle and foot; Translations: [[facility] D/O BONE DEN STRUCT LT ANK FOOT] Onset: 11-20-2021 Episodic Other connective tissue disease (5 sources) Trochanteric bursitis; Translations: [Trochanteric bursitis, right hip] Onset: 02-04-2017 02-04-2017 Episodic Other connective tissue disease (5 sources) Other muscle spasm; Translations: [OTHER MUSCLE SPASM] Onset: 02-28-2022 Episodic Other connective tissue disease (4 sources) Pain in left leg; Translations: [PAIN IN LEFT LEG] Onset: 02-25-2022 Episodic Other connective tissue disease (1 source) Pain in left lower leg; Translations: [PAIN IN LEFT LOWER LEG] Onset: 11-20-2021 Episodic Other injuries and conditions due to external causes (1 source) Other injury of unspecified body region, initial encounter; Translations: [Crush injury T14.8XXA] Onset: 01-02-2021 Resolved: 01-02-2021 Episodic Other nervous system disorders (1 source) Other acute postprocedural pain; Translations: [Other acute postprocedural pain] Onset: 07-01-2017 Episodic Other non-traumatic joint disorders (5 sources) Pain in right hip joint; Translations: [Pain in right hip] Onset: 02-04-2017 02-04-2017 Episodic Residual codes; unclassified (1 source) Other specified postprocedural states; Translations: [Other specified postprocedural states Z98.890] Onset: 01-02-2021 Resolved: 01-02-2021 Episodic Sprains and strains (20 sources) Strain of muscle, fascia and tendon of right hip, initial encounter; Translations: [Low back strain] Onset: 06-29-2017 06-29-2017 Episodic Results Test Name Value Interpretation Reference Range Facility C-Reactive Proteinon 024 CRP [Mass/Vol] mg/L Normal 0.0-5.0 [facility] Comment on above: Performed By: #### C RP #### [facility] [address] [place] [address] Sedimentation Rateon 024 Sedimentation Rate 2 mm Normal 0-20 [facility] Comment on above: Result Comment: ESR Units mm/Hr Performed By: #### E SR #### [facility] [address] [place] [address] XR HIP 2-3 VW W PELVIS RIGHT on 04-17-2023 XR HIP 2-3 VW W PELVIS RIGHT AP pelvis, AP and frog lateral of right hip were personally reviewed, and they revealed: Patient has bilateral total hip replacements in place. They appear to be well-fixed and well aligned. There appears to be good bony ingrowth in both the femoral and acetabular components of each hip. There are 3 cables on the left side with bony overgrowth which would be consistent with a fracture. There is no evidence of loosening of either hip. The sacroiliac joints and the symphysis pubis are intact. There is some heterotopic bone formation in the abductor musculature on the right side. Interpreted by: Suman Nguyen MD Signed by: Suman Nguyen MD 04/24/23 Final result Normal [facility] CBC With Platelet and Differ entialon 03-27-2023 Anisocytosis Ql (Bld) 1+ Normal [facility] Comment on above: Performed By: #### C BCWD #### [facility] [address] [place] [address] Atypical Lymphs 4 % Normal [facility] Comment on above: Performed By: #### C BCWD #### [facility] [address] [place] [address] Basophils (Bld) [#/Vol] 0.1 10*3/uL Normal 0.0-0.2 [facility] Comment on above: Performed By: #### C BCWD #### [facility] [address] [place] [address] Basophils/100 WBC (Bld) 1.0 % Normal [facility] Comment on above: Performed By: #### C BCWD #### [facility] [address] [place] [address] Eosinophils (Bld) [#/Vol] 0.1 10*3/uL Normal 0.0-0.7 [facility] Comment on above: Performed By: #### C BCWD #### [facility] [address] [place] [address] Eosinophils/100 WBC (Bld) 1.0 % Normal [facility] Comment on above: Performed By: #### C BCWD #### [facility] [address] [place] [address] Lymphocytes (Bld) [#/Vol] 1.4 10*3/uL Normal 1.0-4.8 [facility] Comment on above: Performed By: #### C BCWD #### [facility] [address] [place] [address] Lymphocytes/100 WBC (Bld) 8.0 % Normal [facility] Comment on above: Performed By: #### C BCWD #### [facility] [address] [place] [address] Monocytes (Bld) [#/Vol] 0.4 10*3/uL Normal 0.2-0.8 [facility] Comment on above: Performed By: #### C BCWD #### [facility] [address] [place] [address] Monocytes/100 WBC (Bld) 2.9 % Normal [facility] Comment on above: Performed By: #### C BCWD #### [facility] [address] [place] [address] Neutrophils (Bld) [#/Vol] 9.9 10*3/uL Critically high 1.4-6.5 [facility] Comment on above: Performed By: #### C BCWD #### [facility] [address] [place] [address] Neutrophils/100 WBC (Bld) 84.0 % Normal [facility] Comment on above: Performed By: #### C BCWD #### [facility] [address] [place] [address] Ovalocytes 1+ Normal [facility] Comment on above: Performed By: #### C BCWD #### [facility] [address] [place] [address] Platelet Slide Review Decreased Normal [facility] Comment on above: Performed By: #### C BCWD #### [facility] [address] [place] [address] Poikilocytosis 2+ Normal [facility] Comment on above: Performed By: #### C BCWD #### [facility] [address] [place] [address] Slide Review see below Normal [facility] Comment on above: Result Comment: Slid e review agrees with reported results Performed By: #### C BCWD #### [facility] [address] [place] [address] Smudge Cells 3.8 Normal [facility] Comment on above: Performed By: #### C BCWD #### [facility] [address] [place] [address] Erythrocyte distribution width (RBC) [Ratio] 14.1 % Normal 11.5-14.5 [facility] Comment on above: Performed By: #### C BCWD #### [facility] [address] [place] [address] Hematocrit (Bld) [Volume fraction] 43.3 % Normal 42.0-52.0 [facility] Comment on above: Performed By: #### C BCWD #### [facility] [address] [place] [address] Hemoglobin (Bld) [Mass/Vol] 14.1 g/dL Normal 14.0-18.0 [facility] Comment on above: Performed By: #### C BCWD #### [facility] [address] [place] [address] MCH (RBC) [Entitic mass] 30.0 pg Normal 27.0-31.3 [facility] Comment on above: Performed By: #### C BCWD #### [facility] [address] [place] [address] MCHC 32.6 % Low 33.0-37.0 [facility] Comment on above: Performed By: #### C BCWD #### [facility] [address] [place] [address] MCV (RBC) [Entitic vol] 92.1 fL Normal 79.0-92.2 [facility] Comment on above: Performed By: #### C BCWD #### [facility] [address] [place] [address] Platelets (Bld) [#/Vol] 156 10*3/uL Normal 130-400 [facility] Comment on above: Performed By: #### C BCWD #### [facility] [address] [place] [address] RBC (Bld) [#/Vol] 4.70 10*6/uL Normal 4.70-6.10 [facility] Comment on above: Performed By: #### C BCWD #### [facility] [address] [place] [address] WBC (Bld) [#/Vol] 11.8 10*3/uL Critically high 4.8-10.8 [facility] Comment on above: Performed By: #### C BCWD #### [facility] [address] [place] [address] CT ABDOMEN PELVIS WO CONTRAS Ton 03-27-2023 CT ABDOMEN PELVIS WO CONTRAST EXAM: CT Abdomen and Pelvis Without Intravenous Contrast EXAM DATE/TIME: 03/27/2023 1:00 pm CLINICAL HISTORY: ORDERING SYSTEM PROVIDED HISTORY: right flank and groin pain x 2 weeks TECHNOLOGIST PROVIDED HISTORY: Reason for exam:->right flank and groin pain x 2 weeks Additional Contrast?->None Decision Support Exception - unselect if not a suspected or confirmed emergency medical condition->Emergency Medical Condition (MA) What reading provider will be dictating this exam?->CRC TECHNIQUE: Axial computed tomography images of the abdomen and pelvis without intravenous contrast. This CT exam was performed using one or more of the following dose reduction techniques: automated exposure control, adjustment of the mA and/or kV according to patient size, and/or use of iterative reconstruction technique. COMPARISON: No relevant prior studies available. FINDINGS: Lung bases: No acute findings. No mass. No consolidation. ABDOMEN: Liver: No acute findings. Gallbladder and bile ducts: No acute findings. No calcified stones. No ductal dilation. Pancreas: No acute findings. No ductal dilation. Spleen: No acute findings. No splenomegaly. Adrenals: No acute findings. No mass. Kidneys and ureters: Punctate nonobstructing right midpole intrarenal calculus. No ureteral calculi or hydronephrosis is noted, however the distal ureters and bladder are obscured by artifact from bilateral hip prostheses. Stomach and bowel: Diverticulosis without evidence of definite acute diverticulitis. There is a degree of right colon and to a lesser degree transverse colon constipation. Otherwise nonspecific bowel gas pattern. No obstruction. PELVIS: Appendix: A definite appendix is not identified no pericecal inflammatory changes noted. Bladder: No acute findings. No stones. Reproductive: Unremarkable as visualized. ABDOMEN and PELVIS: Intraperitoneal space: No acute findings. No free air. No significant fluid collection. Bones/joints: Multilevel degenerative changes of the spine. No definite acute bony abnormality is noted. No dislocation. Soft tissues: No acute findings. Vasculature: No acute findings. No abdominal aortic aneurysm. Lymph nodes: No acute findings. No enlarged lymph nodes. IMPRESSION: 1. Punctate nonobstructing right midpole intrarenal calculus. No ureteral calculi or hydronephrosis is noted, however the distal ureters and bladder are obscured by artifact from bilateral hip prostheses. 2. Diverticulosis without evidence of definite acute diverticulitis. There is a degree of right colon and to a lesser degree transverse colon constipation. Otherwise nonspecific bowel gas pattern. 3. A definite appendix is not identified no pericecal inflammatory changes noted. 4. Otherwise no acute pathology noted. Interpreted by: Clare King MD Signed by: Clare King MD 03/27/23 Final result Normal [facility] Comprehensive Metabolic Pane tyesha 03-27-2023 Albumin [Mass/Vol] 4.1 g/dL Normal 3.5-4.6 [facility] Comment on above: Performed By: #### C MP #### [facility] [address] [place] [address] ALP [Catalytic activity/Vol] 107 U/L Critically high 35-104 [facility] Comment on above: Performed By: #### C MP #### [facility] [address] [place] [address] ALT [Catalytic activity/Vol] U/L Normal 0-41 [facility] Comment on above: Performed By: #### C MP #### [facility] [address] [place] [address] Anion gap [Moles/Vol] 8 mmol/L Low 9-15 [facility] Comment on above: Performed By: #### C MP #### [facility] [address] [place] [address] AST [Catalytic activity/Vol] 16 U/L Normal 0-40 [facility] Comment on above: Result Comment: Spec imen hemolysis has exceeded the interference as defined by Roel. Value may be falsely increased. Suggest recollection if clinically indicated. Performed By: #### C MP #### [facility] [address] [place] [address] Bilirubin [Mass/Vol] 0.5 mg/dL Normal 0.2-0.7 [facility] Comment on above: Performed By: #### C MP #### [facility] [address] [place] [address] Calcium [Mass/Vol] 9.0 mg/dL Normal 8.5-9.9 [facility] Comment on above: Performed By: #### C MP #### [facility] [address] [place] [address] Chloride [Moles/Vol] 104 mmol/L Normal 95-107 [facility] Comment on above: Performed By: #### C MP #### [facility] [address] [place] [address] CO2 [Moles/Vol] 27 mmol/L Normal 20-31 [facility] Comment on above: Performed By: #### C MP #### [facility] [address] [place] [address] Creatinine [Mass/Vol] 0.90 mg/dL Normal 0.70-1.20 [facility] Comment on above: Performed By: #### C MP #### [facility] [address] [place] [address] GFR >60.0 Normal >60 [facility] Comment on above: Result Comment: Pedi atric calculator link https://www.kidney.org/professionals/kdoqi/gfr_calculatorped Effective Jan 13, 2022 These results are not intended for use in patients <18 years of age. eGFR results are calculated without a race factor using the 2020 CKD-EPI equation. Careful clinical correlation is recommended, particularly when comparing to results calculated using previous equations. The CKD-EPI equation is less accurate in patients with extremes of muscle mass, extra-renal metabolism of creatinine, excessive creatinine ingestion, or following therapy that affects renal tubular secretion. Performed By: #### C MP #### [facility] [address] [place] [address] Globulin (S) [Mass/Vol] 2.7 g/dL Normal 2.3-3.5 [facility] Comment on above: Performed By: #### C MP #### [facility] [address] [place] [address] Glucose [Mass/Vol] 92 mg/dL Normal 70-99 [facility] Comment on above: Performed By: #### C MP #### [facility] [address] [place] [address] Potassium [Moles/Vol] 4.7 mmol/L Normal 3.4-4.9 [facility] Comment on above: Performed By: #### C MP #### [facility] [address] [place] [address] Protein [Mass/Vol] 6.8 g/dL Normal 6.3-8.0 [facility] Comment on above: Performed By: #### C MP #### [facility] [address] [place] [address] Sodium [Moles/Vol] 139 mmol/L Normal 135-144 [facility] Comment on above: Performed By: #### C MP #### [facility] [address] [place] [address] Urea nitrogen [Mass/Vol] 11 mg/dL Normal 6-20 [facility] Comment on above: Performed By: #### C MP #### [facility] [address] [place] [address] Urinalysis, reflex to cultur gee 03-27-2023 Bilirubin Ql (U) Negative Normal Negative [facility] Comment on above: Performed By: #### U AR #### [facility] [address] [place] [address] Clarity (U) Clear Normal Clear [facility] Comment on above: Performed By: #### U AR #### [facility] [address] [place] [address] Color (U) Yellow Normal St[facility]/[place] [facility] Comment on above: Performed By: #### U AR #### [facility] [address] [place] [address] Glucose Ql (U) Negative Normal Negative [facility] Comment on above: Performed By: #### U AR #### [facility] [address] [place] [address] Hemoglobin Ql (U) Negative Normal Negative [facility] Comment on above: Performed By: #### U AR #### [facility] [address] [place] [address] Ketones Ql (U) Negative Normal Negative [facility] Comment on above: Performed By: #### U AR #### [facility] [address] [place] [address] Leukocyte esterase Test strip Ql (U) Negative Normal Negative [facility] Comment on above: Performed By: #### U AR #### [facility] [address] [place] [address] Nitrite Ql (U) Negative Normal Negative [facility] Comment on above: Performed By: #### U AR #### [facility] [address] [place] [address] pH (U) 7.0 [pH] Normal 5.0-9.0 [facility] Comment on above: Performed By: #### U AR #### [facility] [address] [place] [address] Protein Ql (U) Negative Normal Negative [facility] Comment on above: Performed By: #### U AR #### [facility] [address] [place] [address] Specific gravity (U) [Rel density] 1.009 Normal 1.005-1.03 [facility] Comment on above: Performed By: #### U AR #### [facility] [address] [place] [address] Urine Reflexed to Culture Not Indicated Normal [facility] Comment on above: Performed By: #### U AR #### [facility] [address] [place] [address] Urobilinogen Qn (U) 0.2 {Lucia'U}/dL Normal < 2.0 [facility] Comment on above: Performed By: #### U AR #### [facility] [address] [place] [address] XR HIP 2-3 VW W PELVIS RIGHT on 03-27-2023 XR HIP 2-3 VW W PELVIS RIGHT EXAMINATION: ONE XRAY VIEW OF THE PELVIS AND TWO XRAY VIEWS RIGHT HIP 03/27/2023 1:05 pm COMPARISON: None. HISTORY: ORDERING SYSTEM PROVIDED HISTORY: right hip x 2 weeks TECHNOLOGIST PROVIDED HISTORY: Reason for exam:->right hip x 2 weeks What reading provider will be dictating this exam?->CRC FINDINGS: A right total hip arthroplasty is seen. Cortices are intact. Alignment is normal. Note is made of a left total hip prosthesis with cerclage wires. IMPRESSION: No acute fracture or dislocation of the right hip. Interpreted by: Evan Tijerina MD Signed by: Evan Tijerina MD 03/27/23 Final result Normal [facility] XR HAND LEFT (MIN 3 VIEWS)on 02-02-2023 XR HAND LEFT (MIN 3 VIEWS) EXAM: XR Left Hand Complete, 3 or More Views EXAM DATE/TIME: 02/02/2023 12:50 pm CLINICAL HISTORY: ORDERING SYSTEM PROVIDED HISTORY: injury TECHNOLOGIST PROVIDED HISTORY: Reason for exam:->injury What reading provider will be dictating this exam?->CRC TECHNIQUE: Frontal, lateral and oblique views of the left hand. COMPARISON: No relevant prior studies available. FINDINGS: Bones/joints: No acute findings. No acute fracture. No dislocation. Soft tissues: No acute findings. No radiopaque foreign body. IMPRESSION: No acute findings in the left hand. Interpreted by: Clare King MD Signed by: Clare King MD 02/02/23 Final result Normal [facility] CNOVon 12-31-2022 CNOV Office Visit (NREUS2) SANDRA BOSS ([id number]) 1965 M Date Time Provider Department 12/31/22 10:00 AM HERIBERTO CARRERA NREUS2 During your visit today, we recorded the following information about you: Pulse Blood pressure Weight Height 61/minute 101/61 72.1 kg 1.829 m Heriberto Carrera MD 01/02/2023 10:21 AM Signed [facility] - FOLLOW UP EVALUATION Rio Alanis MD [address] [address] Dear Rio Alanis MD: I had the pleasure of seeing Mr. Boss for follow-up today. As you know he is a 57 year old right-handed male with a history of tremor predominant Parkinson disease since 2016. He is seen alone. Subjective HISTORY OF PRESENT ILLNESS: During his previous visit the following plan was made: Previous plan-11/03/2022 Visit: Motor/PD - Will maintain same dose of Sinemet for now. If (after you increase the mirtazapine) - you are still experiencing night time tremor - we will consider adding in some controlled release Sinemet at bedtime to provide relief of the night time tremor. Urinary incontinence - Has had some urinary incontinence recently, which is unusual. Also - is post LLE surgery a few weeks ago. Will check UA/culture to rule out bladder infection. If the results are positive - we will send the results to your primary care provider to treat. Mood - Admitting to anxiety > depression. Started mirtazepine 1 week ago. Explained that it will take 3-6 weeks for the mirtazapine to kick in and hopefully help improve the depression. Weight loss: States recent significant unintentional weight loss. Advised to let primary care provider know about this. You are now on mirtazapine which can stimulate appetite and help you to gain weight. Patient continues to struggle when agitated. Sleep is better and tremor is not waking him up as much. At 6:30 AM tremor is very bad. Sinemet is making him nauseous. Usually takes it with toast and jam but this doesn't help. Taking with lunch and dinner doesn't seem to cause an issue. Has been starting to gain weight. No other side effects from Sinemet. Is starting to wear off 1 hour prior to next dose. Exercises daily--bicycle and walking but this is hard due to left foot problems. Movement Disorder Medication Schedule-as of the start of the visit: Medications 8 AM 12 PM 4 PM 8 PM Sinemet 25/100 1.5 1.5 1.5 1.5 Parkinson's Motor Complications Medication benefit onset: 60 minutes Medication duration: 3 hours Wearing off: yes (Comment: tremor) ALLERGIES Allergen Reactions Vancomycin Other: See Comments Current Outpatient Medications Medication Sig Acetaminophen 500 mg cap Take by mouth. mirtazapine (REMERON) 15 mg tablet Take 1 tablet by mouth daily at bedtime. Take 0.5 tablets at bedtime for 2 weeks and then increase to 1 tab and continue on that dose pregabalin (LYRICA) 25 mg capsule 50 mg three times daily. Breakfast Lunch Dinner sulfamethoxazole-tri methoprim (BACTRIM DS) 800-160 mg per tablet Take by mouth q 12 HR. IBUPROFEN ORAL Take by mouth. MULTIVITAMIN WITH MINERALS (MULTIVITAMIN AND MINERAL FORMULA ORAL) Take 1 tablet by mouth once daily. carbidopa-levodopa (SINEMET 25-100) 25-100 mg per tablet TAKE 1 TABLET BY MOUTH 5 TIMES DAILY (6:30 AM, 9:30 AM, 12:30 PM, 3:30 PM and 6:30 PM) No current facility-administere d medications for this visit. Objective Physical Examination: Vital Signs: BP 101/61 (BP Site: Right Arm, BP Position: Sitting, BP Cuff Size: Regular Adult) Pulse 61 Ht 182.9 cm (6') Wt 72.1 kg (159 lb) SpO2 98% BMI 21.56 kg/m? General: Awake, alert, interactive, no acute distress, good nutritional status, normal development, well-kept Neurological Exam Mental Status Awake, alert and oriented to person, place and time. Recent and remote memory are intact. Speech is normal. Language is fluent with no aphasia. Cranial Nerves Cranial nerves normal unless stated otherwise. Motor Normal muscle bulk throughout. Strength is 5/5 throughout all four extremities. . Reflexes Right Left Brachioradialis 2+ 2+ Biceps 2+ 2+ Patellar 2+ 2+ Achilles 1+ 1+ Movement Scales: MDS-UPDRS Motor subscale condition of exam Medication Off/On/Naiive ON Time of UPDRS 1019 Time of Last Medication 0800 Last Medication Taken Sinemet 25/100 1.5 tabs DBS Right N/A DBS Left N/A MDS-UPDRS Motor subscale scores Speech 1-Slight. Loss of modulation, diction or volume, but still all words easy to understand. Facial Expression 2-Mild. In addition to decreased eye-blink frequency, Masked facies present in the lower face as well, namely fewer movements around the mouth, such as less spontaneous smiling, but lips not parted. Rigidity Neck 2-Mild. Rigidity detected without the activation maneuver, but full range of motion is easily achieved. Rigid (more content not included)... Normal [facility] Bacteria Ur Culton 3 Bacteria identified Cx Nom (U) CULTURE, URINE: No growth (<1,000 CFU/ml) Normal [facility] Comment on above: Performed By: #### 6 30-4 #### [facility] CLIA [id number] [address] [place] [address] OF [facility] CNOVon 11-12-2022 CNOV Office Visit (NREUS2) ANAHISANDRA ([id number]) 1965 M Date Time Provider Department 11/12/22 2:00 PM SUMA TERAN NREUS2 During your visit today, we recorded the following information about you: Weight Height 68 kg 1.829 m Suma Teran PA-C 11/17/2022 12:48 PM Signed [facility] - FOLLOW UP EVALUATION [place] Alanis [address] [id number] Dear Rio Alanis: I had the pleasure of seeing Mr. Boss for follow-up today. As you know he is a 56 year old right-handed male with a history of since . Subjective Previous Plan-11/03/2022 Visit: Start Remeron 15 mg. Take 7.5 mg at nighttime for 2 weeks then increase to 15 mg and continue on that dose Continue same dose of Sinemet Follow up with PCP for urinary urgency In person appointment Interval History: Patient is seen today for a routine visit; last visit was with Dr. Carrera on 11/03. Per Sandra - there was some difficulties with the VV technology at this time. She states that he experiences increased bothersome tremor in the setting of increasing anxiety. Also states he continues to lose weight - states he has lost approximately 23 lbs in 3 months (states 06/16 ws 173 lbs; in on October 21 at his pre-op for foot surgery wt was 150.3 lbs). Admits to reduced appetite. States he has not yet notified his PCP regarding this due to being busy with his foot issues. 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 States he tries to keep himself active - lifting weights, walking, spending time with grandchild. Wearing off sign: Return of tremor. States he is also wearing off at night and states tremor impedes sleep. Movement Disorders Medications Schedule - as of the start of the visit: Medications 8 AM 12 PM 4 PM 8 PM Sinemet 1.5 1.5 1.5 1.5 Parkinson's Motor Complications Medication benefit onset: 60 minutes Medication duration: 3 hours Wearing off: yes (Comment: tremor) Questionnaires: In addition, the following non-motor symptoms and palliative concerns were evaluated: Sleep/Fatigue: REM sleep behavior disorder: No Restless Legs Syndrome: Yes Mild at night Leg swelling: Impaired sense of smell: Cognition: Cognitive impairment: yes Impaired STM MoCA Cognitive assessment: Hallucinations and delusions: no Apathy: no Impulse control disorder: Palliative Concerns: Caregiver burden: Spiritual concerns: Advanced directives on file: Palliative services: Therapy and Exercise: Last PT Date: Last OT Date: ST Date: Exercises Regularly: Yes Walks, hike; states is hard to exercise aerobically because of his LLE In addition, the following Parkinson-associated features were evaluated: Daily activities Difficulties with eating: No Difficulties in dressing: Yes: Slower Difficulties with hygiene activities: Yes: Takes longer Difficulties with handwriting: Yes: Difficulties with doing hobbies and other activities: Yes: Takes longer but can do (fishing, camping, walking, hiking) Difficulties turning in bed: Yes: Difficulties getting out of bed, car or chair: Yes: Able to do but takes longer Tremors/Gait/Balance Shaking or tremors: Yes: Mostly LUE Walking and balance problems: Yes: Attributed to PD and his LLE issue Number of falls in the Last Month: No Gait freezing: Yes: Occasionally Autonomic/Pain Lightheadeness on standing: Yes: denies LOC Urinary problems: Yes: States had 2 accidents this AM Constipation problems: No Pain and other sensations: Yes: LLE pain (especially with walking) Speech/Swallowing Speech problems: No Drooling: Yes: At night Chewing and swallowing problems: No Sleep/Fatigue Problems sleeping at night: Yes: Falls asleep OK but states wakes up around 1-2am with tremor; will then lay on his arm - can sometimes get back to sleep, other times not. States he started mirtazapine 1/2 tab at night 1 week ago - noting some sleep improvements - feels he is getting into deeper sleep Daytime sleepiness: No Fatigue: No REM sleep behavior disorder: No Restless Legs Syndrome: Yes Mood/Behavior/Cognit ion Cognitive impairment: yes Impaired STM No Data Recorded Hallucinations and delusions: no Apathy: no Depression: Yes - occasionally Anxiety: Yes Finally, the following table shows the patient's overall global physical and mental health using the PROMIS scale relative to the previous visit: PROMIS-10 Flowsheet Row Distance Health from 11/03/2022 in [facility] Office Visit from 07/16/2022 in [facility] Global Physical Health T Score 39.8 42.3 Global Mental Health T Score 43.5 43.5 0-10 Standard (more content not included)... Normal [facility] URINALYSIS, REFLEX MICROSCOP ICon 11-12-2022 Bilirubin Ql (U) Negative Normal Negative [facility] Comment on above: Order Comment: Speci men Type: URINE SPECIMEN Ordering Facility: [facility] Address: ANATOMIC PATHOLOGY, [place] [address] Performed By: #### L [id number] #### [facility] CLIA [id number] [address] [place] [address] [place] Clarity (Unsp spec) Clear Normal Clear [facility] Comment on above: Order Comment: Speci men Type: URINE SPECIMEN Ordering Facility: [facility] Address: [place] [address] Performed By: #### L [id number] #### [facility] CLIA [id number] [address] [place] [address] [place] Color (U) Light Yellow Normal Yellow [facility] Comment on above: Order Comment: Speci men Type: URINE SPECIMEN Ordering Facility: [facility] Address: [place] [address] Performed By: #### L [id number] #### [facility] CLIA [id number] [address] [place] [address] [place] Glucose Test strip (U) [Mass/Vol] Negative Normal Trace, Negative [facility] Comment on above: Order Comment: Speci men Type: URINE SPECIMEN Ordering Facility: [facility] Address: [place] [address] Performed By: #### L [id number] #### [facility] CLIA [id number] [address] [place] [address] [place] Hemoglobin Ql (U) Negative Normal Negative, Trace [facility] Comment on above: Order Comment: Speci men Type: URINE SPECIMEN Ordering Facility: [facility] Address: [facility] [place] [address] Performed By: #### L [id number] #### [facility] CLIA [id number] [address] [place] [address] [place] Ketones Ql (U) Negative Normal Trace, Negative [facility] Comment on above: Order Comment: Speci men Type: URINE SPECIMEN Ordering Facility: [facility] Address: [place] [address] Performed By: #### L [id number] #### [facility] CLIA [id number] [address] [place] [address] [place] Leukocyte esterase Test strip Ql (U) Negative Normal Negative, 25 Suzi/uL [facility] Comment on above: Order Comment: Speci men Type: URINE SPECIMEN Ordering Facility: [facility] Address: [place] [address] Performed By: #### L [id number] #### [facility] CLIA [id number] [address] [place] [address] [place] Nitrite Ql (U) Negative Normal Negative [facility] Comment on above: Order Comment: Speci men Type: URINE SPECIMEN Ordering Facility: [facility] Address: [facility] [place] [address] Performed By: #### L [id number] #### [facility] CLIA [id number] [address] [place] [address] [place] pH (U) 6.5 [pH] Normal 5.0-8.0 [facility] Comment on above: Order Comment: Speci men Type: URINE SPECIMEN Ordering Facility: [facility] Address: [facility] [place] [address] Performed By: #### L [id number] #### [facility] CLIA [id number] [address] [place] [address] [place] Protein (U) [Mass/Vol] Negative Normal Trace , Negative [facility] Comment on above: Order Comment: Speci men Type: URINE SPECIMEN Ordering Facility: [facility] Address: [facility] [place] [address] Performed By: #### L [id number] #### [facility] CLIA [id number] [address] [place] [address] [place] Specific gravity (U) [Rel density] 1.015 Normal 1.005-1.030 [facility] Comment on above: Order Comment: Speci men Type: URINE SPECIMEN Ordering Facility: [facility] Address: ANATOMIC PATHOLOGY, [place] [address] Performed By: #### L [id number] #### [facility] CLIA [id number] [address] [place] [address] [place] Urobilinogen Ql (U) Negative Normal Negative [facility] Comment on above: Order Comment: Speci men Type: URINE SPECIMEN Ordering Facility: [facility] Address: [place] [address] Performed By: #### L [id number] #### [facility] CLIA [id number] [address] [place] [address] [place] CBC AUTO DIFFon 07-20-2022 BASO # 0.1 103/ul Normal 0.0-0.1 [facility] Comment on above: Performed By: #### C BC #### [facility] [address] [place] [address] Dr. Tony Roque Basophils/100 WBC (Bld) 1.5 % Normal 0.2-2.0 [facility] Comment on above: Performed By: #### C BC #### [facility] [address] [address] [address] Tony Roque EO # 0.3 103/ul Normal 0.0-0.7 [facility] Comment on above: Performed By: #### C BC #### [facility] [address] [address] [address] Tony Roque Eosinophils/100 WBC (Bld) 4.4 % Normal 0.9-7.0 [facility] Comment on above: Performed By: #### C BC #### [facility] [address] [address] [address] Tony Roque Erythrocyte distribution width (RBC) [Ratio] 13.7 % Normal 11.0-15.0 [facility] Comment on above: Performed By: #### C BC #### [facility] [address] [place] [address] Dr. Tony Roque Hematocrit (Bld) [Volume fraction] 40.0 % Critically low 42.0-54.0 [facility] Comment on above: Performed By: #### C BC #### [facility] [address] [place] [address] Dr. Tony Roque Hemoglobin (Bld) [Mass/Vol] 13.1 g/dL Critically low 14.0-18.0 [facility] Comment on above: Performed By: #### C BC #### [facility] [address] [place] [address] Dr. Tony Roque IG # 0.02 10e3/ul Normal 0.00-0.03 [facility] Comment on above: Performed By: #### C BC #### [facility] [address] [place] [address] Dr. Tony Roque IG % 0.3 % Normal 0.0-0.5 [facility] Comment on above: Performed By: #### C BC #### [facility] [address] [place] [address] Dr. Tony Roque LYMPH # 1.6 103/ul Normal 1.2-3.8 [facility] Comment on above: Performed By: #### C BC #### [facility] [address] [place] [address] Dr. Tony Roque Lymphocytes/100 WBC (Bld) 27.6 % Normal 20.5-60.0 [facility] Comment on above: Performed By: #### C BC #### [facility] [address] [place] [address] Dr. Tony Roque MANUAL DIFF REQ NO Normal [facility] Comment on above: Performed By: #### C BC #### [facility] [address] [place] [address] Dr. Tony Roque MCH (RBC) [Entitic mass] 29.3 pg Normal 25.9-34.0 [facility] Comment on above: Performed By: #### C BC #### [facility] [address] [place] [address] Dr. Tony Roque MCHC (RBC) [Mass/Vol] 32.8 g/dL Normal 29.9-35.2 [facility] Comment on above: Performed By: #### C BC #### [facility] [address] [place] [address] Dr. Tony Roque MCV (RBC) [Entitic vol] 89.5 fL Normal 80.0-94.0 [facility] Comment on above: Performed By: #### C BC #### [facility] [address] [address] [address] Tony Roque MONO # 0.7 103/ul Normal 0.3-0.8 [facility] Comment on above: Performed By: #### C BC #### [facility] [address] [place] [address] Dr. Tony Roque Monocytes/100 WBC (Bld) 11.1 % Normal 1.7-12.0 [facility] Comment on above: Performed By: #### C BC #### [facility] [address] [place] [address] Dr. Tony Roque NEUT # 3.3 103/ul Normal 1.4-6.5 [facility] Comment on above: Performed By: #### C BC #### [facility] [address] [place] [address] Dr. Tony Roque Neutrophils/100 WBC (Bld) 55.1 % Normal 43.0-75.0 [facility] Comment on above: Performed By: #### C BC #### [facility] [address] [place] [address] Dr. Tony Roque Platelet mean volume (Bld) [Entitic vol] 11.6 fL Normal 9.5-13.5 [facility] Comment on above: Performed By: #### C BC #### [facility] [address] [place] [address] Dr. Tony Roque PLT 197 103/ul Normal 150-450 [facility] Comment on above: Performed By: #### C BC #### [facility] [address] [place] [address] Dr. Tony Roque RBC 4.47 106/ul Critically low 4.70-6.10 [facility] Comment on above: Performed By: #### C BC #### [facility] [address] [place] [address] Dr. Tony Roque WBC 6.0 103/ul Normal 4.0-11.0 [facility] Comment on above: Performed By: #### C BC #### [facility] [address] [place] [address] Dr. Tony Roque PROF CHEM 8 (BAS METB)on Anion gap [Moles/Vol] 10.5 mmol/L Normal [facility] Comment on above: Performed By: #### B MP #### [facility] [address] [place] [address] Dr. Tony Roque Calcium [Mass/Vol] 8.3 mg/dL Critically low 8.5-10.1 [facility] Comment on above: Performed By: #### B MP #### [facility] [address] [place] [address] Dr. Tony Roque Chloride [Moles/Vol] 106 mmol/L Normal 98-107 [facility] Comment on above: Performed By: #### B MP #### [facility] [address] [place] [address] Dr. Tony Roque CO2 [Moles/Vol] 27.1 mmol/L Normal 21.0-32.0 [facility] Comment on above: Performed By: #### B MP #### [facility] [address] [place] [address] Dr. Tony Roque Creatinine [Mass/Vol] 1.05 mg/dL Normal 0.70-1.30 [facility] Comment on above: Performed By: #### B MP #### [facility] [address] [place] [address] Dr. Tony Roque EGFR-AF CONGOLESE >60 Normal >=60 [facility] Comment on above: Performed By: #### B MP #### [facility] [address] [place] [address] Dr. Tony Roque EGFR-NON AF CONGOLESE >60 Normal >=60 [facility] Comment on above: Performed By: #### B MP #### [facility] [address] [address] [address] Tony Roque Glucose [Mass/Vol] 100 mg/dL Normal 74-106 [facility] Comment on above: Performed By: #### B MP #### [facility] [address] [address] [address] Tony Roque Potassium [Moles/Vol] 4.6 mmol/L Normal 3.5-5.1 [facility] Comment on above: Performed By: #### B MP #### [facility] [address] [address] [address] Tony Roque Sodium [Moles/Vol] 139 mmol/L Normal 136-145 [facility] Comment on above: Performed By: #### B MP #### [facility] [address] [place] [address] Dr. Tony Roque Urea nitrogen [Mass/Vol] 21.0 mg/dL Critically high 7.0-18.0 [facility] Comment on above: Performed By: #### B MP #### [facility] [address] [address] [address] Tony Roque Urea nitrogen/Creatinine [Mass ratio] 20.0 mg/mg Normal [facility] Comment on above: Performed By: #### B MP #### [facility] [address] [address] [address] Tony Roque CBC AUTO DIFFon 07-19-2022 BASO # 0.1 103/ul Normal 0.0-0.1 [facility] Comment on above: Performed By: #### C BC #### [facility] [address] [address] [address] Tony Roque Basophils/100 WBC (Bld) 1.2 % Normal 0.2-2.0 [facility] Comment on above: Performed By: #### C BC #### [facility] [address] [address] [address] Tony Roque EO # 0.1 103/ul Normal 0.0-0.7 [facility] Comment on above: Performed By: #### C BC #### [facility] [address] [address] [address] Tony Roque Eosinophils/100 WBC (Bld) 1.6 % Normal 0.9-7.0 [facility] Comment on above: Performed By: #### C BC #### [facility] [address] [address] [address] Tony Roque Erythrocyte distribution width (RBC) [Ratio] 13.4 % Normal 11.0-15.0 [facility] Comment on above: Performed By: #### C BC #### [facility] [address] [address] [address] Tony Roque Hematocrit (Bld) [Volume fraction] 44.8 % Normal 42.0-54.0 [facility] Comment on above: Performed By: #### C BC #### [facility] [address] [place] [address] Dr. Tony Roque Hemoglobin (Bld) [Mass/Vol] 15.1 g/dL Normal 14.0-18.0 [facility] Comment on above: Performed By: #### C BC #### [facility] [address] [place] [address] Dr. Tony Roque IG # 0.04 10e3/ul Critically high 0.00-0.03 [facility] Comment on above: Performed By: #### C BC #### [facility] [address] [place] [address] Dr. Tony Roque IG % 0.6 % Critically high 0.0-0.5 [facility] Comment on above: Performed By: #### C BC #### [facility] [address] [address] [address] Tony Roque LYMPH # 1.1 103/ul Critically low 1.2-3.8 [facility] Comment on above: Performed By: #### C BC #### [facility] [address] [place] [address] Dr. Tony Roque Lymphocytes/100 WBC (Bld) 16.6 % Critically low 20.5-60.0 [facility] Comment on above: Performed By: #### C BC #### [facility] [address] [place] [address] Dr. Tony Roque MANUAL DIFF REQ NO Normal [facility] Comment on above: Performed By: #### C BC #### [facility] [address] [place] [address] Dr. Tony Roque MCH (RBC) [Entitic mass] 29.7 pg Normal 25.9-34.0 [facility] Comment on above: Performed By: #### C BC #### [facility] [address] [place] [address] Dr. Tony Roque MCHC (RBC) [Mass/Vol] 33.7 g/dL Normal 29.9-35.2 [facility] Comment on above: Performed By: #### C BC #### [facility] [address] [place] [address] Dr. Tony Roque MCV (RBC) [Entitic vol] 88.2 fL Normal 80.0-94.0 [facility] Comment on above: Performed By: #### C BC #### [facility] [address] [place] [address] Dr. Tony Roque MONO # 0.6 103/ul Normal 0.3-0.8 [facility] Comment on above: Performed By: #### C BC #### [facility] [address] [place] [address] Dr. Tony Roque Monocytes/100 WBC (Bld) 9.0 % Normal 1.7-12.0 [facility] Comment on above: Performed By: #### C BC #### [facility] [address] [place] [address] Dr. Tony Roque NEUT # 4.7 103/ul Normal 1.4-6.5 [facility] Comment on above: Performed By: #### C BC #### [facility] [address] [place] [address] Dr. Tony Roque Neutrophils/100 WBC (Bld) 71.0 % Normal 43.0-75.0 [facility] Comment on above: Performed By: #### C BC #### [facility] [address] [place] [address] Dr. Tony Roque Platelet mean volume (Bld) [Entitic vol] 11.2 fL Normal 9.5-13.5 [facility] Comment on above: Performed By: #### C BC #### [facility] [address] [place] [address] Dr. Tony Roque PLT 246 103/ul Normal 150-450 [facility] Comment on above: Performed By: #### C BC #### [facility] [address] [place] [address] Dr. Tony Roque RBC 5.08 106/ul Normal 4.70-6.10 [facility] Comment on above: Performed By: #### C BC #### [facility] [address] [place] [address] Dr. Tony Roque WBC 6.7 103/ul Normal 4.0-11.0 [facility] Comment on above: Performed By: #### C BC #### [facility] [address] [place] [address] Dr. Tony Roque CRPon 07-19-2022 CRP [Mass/Vol] mg/L Normal <=1.0 [facility] Comment on above: Performed By: #### C RP, CMP #### [facility] [address] [place] [address] Dr. Tony Roque CULTURE BLOODon 07-19-2022 Microscopic examination of blood, culture Culture Observations: NO GROWTH AT 5 DAYS. Normal [facility] Comment on above: Performed By: #### L ACT #### [facility] [address] [place] [address] Dr. Tony Roque Microscopic examination of blood, culture Culture Observations: NO GROWTH AT 5 DAYS. Isolate 1 [id number] Normal [facility] Comment on above: Performed By: #### L ACT #### [facility] [address] [place] [address] Dr. Tony Roque Covid-19 PCR (CVDTB)on SARS-CoV-2 (COVID-19) RNA CLARI+probe Ql (Unsp spec) Not detected Normal NOT DETECTED [facility] Comment on above: Result Comment: When diagnostic testing is negative, the possibility of a false negative should be considered in the context of a patient's recent exposures and the presence of clinical signs and symptoms consistent with SARS-CoV-2. This test is not yet approved or cleared by the [place] FDA. When there are no FDA-approved or cleared tests available, and other criteria are met, FDA can make tests available under an emergency access mechanism called an Emergency Use Authorization (EUA). The EUA for this test is supported by the [place] of Health and Human Service's declaration that circumstances exist to justify the emergency use of in vitro diagnostics for the detection and/or diagnosis of the virus that causes COVID-19. This EUA will remain in effect for the duration of the COVID-19 declaration justifying emergency of IVDs, unless it is terminated or revoked by the FDA (after which the test may no longer be used). Performed By: #### L ACT #### [facility] [address] [place] [address] Dr. Tony Roque LACTATE/LACTIC ACIDon 2022 Lactate [Moles/Vol] 1.3 mmol/L Normal 0.4-2.0 [facility] Comment on above: Performed By: #### L ACT #### [facility] [address] [place] [address] Dr. Tony Roque PROF 14(COMP METB)on 023 Albumin [Mass/Vol] 3.8 g/dL Normal 3.4-5.0 [facility] Comment on above: Performed By: #### C RP, CMP #### [facility] [address] [place] [address] Dr. Tony Roque Albumin/Globulin [Mass ratio] 1.0 {ratio} Normal [facility] Comment on above: Performed By: #### C RP, CMP #### [facility] [address] [place] [address] Dr. Tony Roque ALP [Catalytic activity/Vol] 124 U/L Critically high 46-116 [facility] Comment on above: Performed By: #### C RP, CMP #### [facility] [address] [address] [address] Tony Roque ALT [Catalytic activity/Vol] 13 U/L Critically low 16-63 [facility] Comment on above: Performed By: #### C RP, CMP #### [facility] [address] [address] [address] Tony Rqoue Anion gap [Moles/Vol] 11.5 mmol/L Normal [facility] Comment on above: Performed By: #### C RP, CMP #### [facility] [address] [address] [address] Tony Roque AST [Catalytic activity/Vol] 13 U/L Critically low 15-37 [facility] Comment on above: Performed By: #### C RP, CMP #### [facility] [address] [address] [address] Tony Roque Bilirubin [Mass/Vol] 0.5 mg/dL Normal 0.2-1.0 [facility] Comment on above: Performed By: #### C RP, CMP #### [facility] [address] [address] [address] Tony Roque Calcium [Mass/Vol] 9.4 mg/dL Normal 8.5-10.1 [facility] Comment on above: Performed By: #### C RP, CMP #### [facility] [address] [place] [address] Dr. Tony Roque Chloride [Moles/Vol] 103 mmol/L Normal 98-107 [facility] Comment on above: Performed By: #### C RP, CMP #### [facility] [address] [address] [address] Tony Roque CO2 [Moles/Vol] 28.2 mmol/L Normal 21.0-32.0 [facility] [place] [facility] Comment on above: Performed By: #### C RP, CMP #### [facility] [address] [address] [address] Tony Roque Creatinine [Mass/Vol] 0.86 mg/dL Normal 0.70-1.30 [facility] Comment on above: Performed By: #### C RP, CMP #### [facility] [address] [address] [address] Tony Roque EGFR-AF CONGOLESE >60 Normal >=60 [facility] [place] [facility] Comment on above: Performed By: #### C RP, CMP #### [facility] [address] [address] [address] Tony Roque EGFR-NON AF CONGOLESE >60 Normal >=60 [facility] Comment on above: Performed By: #### C RP, CMP #### [facility] [address] [address] [address] Tony Roque Globulin (S) [Mass/Vol] 3.8 g/dL Normal [facility] Comment on above: Performed By: #### C RP, CMP #### [facility] [address] [place] [address] Dr. Tony Roque Glucose [Mass/Vol] 114 mg/dL Critically high 74-106 [facility] Comment on above: Performed By: #### C RP, CMP #### [facility] [address] [place] [address] Dr. Tony Roque Potassium [Moles/Vol] 3.7 mmol/L Normal 3.5-5.1 [facility] Comment on above: Performed By: #### C RP, CMP #### [facility] [address] [place] [address] Dr. Tony Roque Protein [Mass/Vol] 7.6 g/dL Normal 6.4-8.2 [facility] Comment on above: Performed By: #### C RP, CMP #### [facility] [address] [place] [address] Dr. Tony Roqeu Sodium [Moles/Vol] 139 mmol/L Normal 136-145 [facility] Comment on above: Performed By: #### C RP, CMP #### [facility] [address] [place] [address] Dr. Tony Roque Urea nitrogen [Mass/Vol] 10.0 mg/dL Normal 7.0-18.0 [facility] Comment on above: Performed By: #### C RP, CMP #### [facility] [address] [place], [place] [address] Dr. Tony Roque Urea nitrogen/Creatinine [Mass ratio] 11.6 mg/mg Normal [facility] Comment on above: Performed By: #### C RP, CMP #### [facility] [address] [place], [place] [address] Dr. Tony Roque TROPONIN, HIGH SENSITIVITYon 07-19-2022 HSTROP 4.1 pg/mL Normal 4.0-76.1 [facility] Comment on above: Result Comment: CUT- OFF POINTS HAVE BEEN ESTABLISHED BASED ON THE FOURTH UNIVERSAL DEFINITIONS OF MYOCARDIAL INFARCTION. THE UPPER REFERENCE LIMIT (URL) OF TROPONIN, DEFINED THE 99TH PERCENTILE OF cTnI DISTRIBUTION IN A REFERENCE POPULATION, HAS BEEN CONFIRMED THE DECISION THRESHOLD FOR [place] DIAGNOSIS. Performed By: #### H STROPN #### [facility] [address] [address] [address] Tony Roque CNOVon 07-16-2022 CNOV Office Visit (NREUS2) SANDRA BOSS ([id number]) 1965 M Date Time Provider Department 07/16/22 2:00 PM HERIBERTO CARRERA NREUS2 During your visit today, we recorded the following information about you: Pulse Blood pressure 65/minute 120/91 Heriberto Carrera MD 07/24/2022 3:16 PM Signed [facility] - NEW PATIENT EVALUATION Primary Care Provider: Rio Alanis MD [facility] [address] [address] Dear Rio Alanis MD: I had the pleasure of evaluating Mr. Boss in our clinic today. As you know he is a 56 year old right-handed male who presents for evaluation of since . He is seen . Subjective HISTORY OF PRESENT ILLNESS: Initial HPI Patient presents for management of Parkinson disease with tremor going back to around 2015 and started Sinemet in January 2022. Tremors get very severe at nighttime. Is taking Sinemet 4 times a day which is not sufficient. Wears off in 2.5 hours or so. Does do quite well while it is working. Was given amantadine which kept him awake and entacapone which caused severe gastric upset. His nighttime symptoms appear to bother him the most and these are suppressible to some extent, with an urge to move when he suppresses and relief upon movement and walking. Has not taken a higher dose of Sinemet during the day. Sinemet does give him cramps and constipation, for which he takes docusate as needed. Also endorses hyposmia. Does not think he snores. Questionnaires: In addition, the following areas that may be affected by abnormal involuntary movements were evaluated: Daily activities Difficulties with eating: Yes (mild) Difficulties in dressing: Yes (slight) Difficulties with hygiene activities: Yes (slight) Difficulties with handwriting: Yes (slight) Difficulties with doing hobbies and other activities: Yes (slight) Difficulties turning in bed: Yes (slight) Difficulties getting out of bed, car or chair: Yes (slight) Tremors/Gait/Balance Shaking or tremors: Yes (mild) Walking and balance problems: Yes (slight) Number of falls in the Last Month: No falls Gait freezing: Yes (slight) Autonomic/Pain Lightheadeness on standing: Yes (mild) does not seem to get worse with Sinemet/amantadine Urinary problems: Yes (slight) Constipation problems: Yes (slight) Pain and other sensations: Yes (mild) Speech/Swallowing Speech problems: Yes (mild) Droolin (none) Chewing and swallowing problems: 0 (none) Sleep/Fatigue Sleep problems: Yes (severe) mostly due to tremor and joint pain Daytime sleepiness: Yes (mild) Fatigue: Yes (slight) Mood/Behavior Depression: PHQ-9 Score: 11 usually representing moderate (10-14) depression. Anxiety: JUAN CARLOS-7 Total Score: 7 usually representing mild (5-9) anxiety. Finally, the following table shows the patient's overall global physical and mental health using the PROMIS scale: PROMIS-10 Flowsheet Row Office Visit from 07/16/2022 in [facility] Physical Health T Score 42.3 Global Mental Health T Score 43.5 0-10 Standard Pain Scale 3 *PROMIS-10 scoring scale: mean = 50, over 50 is above average, under 50 is below average Review of Systems Constitutional: Positive for fatigue. HENT: Negative. Eyes: Negative. Respiratory: Negative. Cardiovascular: Negative. Gastrointestinal: Positive for abdominal pain and constipation. Genitourinary: Negative. Hematologic/Lymphati c: Negative. Allergic/Immunologic : Negative. Musculoskeletal: Positive for arthralgias and back pain. Skin: Negative. ALLERGIES Allergen Reactions Vancomycin Other: See Comments Current Outpatient Medications Medication Sig carbidopa-levodopa (SINEMET 25-100) 25-100 mg per tablet TAKE 1 TABLET BY MOUTH 4 TIMES DAILY (8 AM, NOON, 4 PM, 8 PM) pregabalin (LYRICA) 25 mg capsule Lyrica Active sulfamethoxazole-tri methoprim (BACTRIM DS) 800-160 mg per tablet Take by mouth q 12 HR. IBUPROFEN ORAL Take by mouth. MULTIVITAMIN WITH MINERALS (MULTIVITAMIN AND MINERAL FORMULA ORAL) Take 1 tablet by mouth once daily. No current facility-administere d medications for this visit. Past Medical and Surgical History: has a past medical history of OA (osteoarthritis) of hip (2017) and Tobacco use. has a past surgical history that includes appendectomy (1989's); shoulder arthroscopy/surg (Right, 1999's); arthrp acetblr/prox fem prostc agrft/algrft (Right, 03/18/2017); and past surgical history of (Right, 06/2017). Social History Tobacco Use Smoking status: Every Day Packs/day: 1.00 Years: 15.00 Pack years: 15.00 Types: Cigarettes Start date: 06/30/2002 Smokeless tobacco: Never Tobacco comments: Currently down to 1-2 a day (04/20/18) Substance Use Topics Alcohol use: No Drug use: No Family History: family history includes Dementia in his father; None in his moth (more content not included)... Normal [facility] Laura 07-01-2022 REFUGIO Telephone (NIQ) ANAHISANDRA D ([id number]) 1965 M Date Time Provider Department 07/01/22 VICKY DIAZ During your visit today, we recorded the following information about you: Delores Simón 07/01/2022 11:52 AM Signed Received outside medical records for patient to be seen in [facility]. Records uploaded into Scanned Docs. Would you be able to triage please? Thank you, Delores Bey PA-C 07/01/2022 3:37 PM Signed Records reviewed. Recommend movement disorders neurology consult. NANCIE Reyes 07/03/2022 10:31 AM Signed Scheduled to see Dr. Carrera July 16 2:00pm. Patient agreeable to plan. Allergies As of Date: 07/01/2022 (No Known Allergies) Date Reviewed: 08/06/2018 Reviewed by: Kerry Cortes Ma - Fully Assessed Reason for Visit: External Referrals/resources [909] Prescriptions as of 07/03/2022 - celecoxib (CELEBREX) 200 mg capsule TAKE 1 CAPSULE BY MOUTH TWICE A DAY - diclofenac sodium (PENNSAID) 20 mg/gram /actuation(2 %) sopm Apply 2 Pump to affected area twice daily. - diclofenac sodium (PENNSAID) 20 mg/gram /actuation(2 %) sopm Apply 2 Pump to affected area twice daily. - acetaminophen (TYLENOL) 500 mg tablet Take 2 tablets by mouth every 8 hours. (Mild pain reliever) - MULTIVITAMIN WITH MINERALS (MULTIVITAMIN AND MINERAL FORMULA ORAL) Take 1 tablet by mouth once daily. Problem List As Of Date 07/01/2022 Noted Resolved Osteoarthritis of right hip [M16.11] 01/22/2017 Pain in right hip [M25.551] 02/04/2017 Greater trochanteric bursitis of right hip [M70*02/04/2017 Primary osteoarthritis of right hip [M16.11] 03/18/2017 Tear of right gluteus minimus tendon [S76.011A] 06/29/2017 Osteoarthritis of left hip [M16.12] 04/02/2018 Current smoker [F17.200] 04/20/2018 Hyperkalemia [E87.5] 04/28/2018 Encounter Status:Closed by DELORES KIM on 07/01/22 Normal [facility] XR FOOT LT 2Von 06-20-2022 XR FOOT LT 2V EXAM: XR FOOT LT 2V HISTORY: Pain COMPARISON: None. Fluoroscopic guidance was provided by the department of radiology for the requesting clinician to aid in their procedure. Interpretation of images was performed by the requesting clinician during the procedure, and not by the department of radiology. Electronically authenticated by: KARLA MANZANO Date: 2022-06-20 07:03 Normal [facility] XR FOOT LT MIN 3 VIEWSon XR FOOT LT MIN 3 VIEWS EXAM: XR FOOT LT MIN 3 VIEWS HISTORY: Pain COMPARISON: 06/04/2022. TECHNIQUE: Frontal, lateral, and oblique views of the left foot FINDINGS/ IMPRESSION: 1. Decreased measures. 2. No acute fractures or dislocations. 3. Arthrodesis of the first through fourth interphalangeal articulations. There is overall maintained alignment with straightened appearance of the first through fourth toes the setting of previous hammertoe deformities. Additional prior internal fixation of the hindfoot with intramedullary steffi transfixing the tibiotalar and subtalar joints. 4. Moderate first MTP osteoarthritis.. Electronically authenticated by: KARLA MANZANO Date: 2022-06-20 07:05 Normal [facility] POINT OF CARE GLUCOSEon Glucose [Mass/Vol] 95 mg/dL Normal 74-106 [facility] Comment on above: Performed By: #### P OCGLUC #### [facility] [address] [address] [address] Tony Roque Glucose [Mass/Vol] 123 mg/dL Critically high 74-106 [facility] Comment on above: Performed By: #### P OCGLUC #### [facility] [address] [address] [address] Tony Roque PROF CHEM 8 (BAS METB)on Anion gap [Moles/Vol] 9.0 mmol/L [facility] Comment on above: Performed By: #### B MP #### [facility] [address] [address] [address] Tony Roque Calcium [Mass/Vol] 8.9 mg/dL Normal 8.5-10.1 [facility] Comment on above: Performed By: #### B MP #### [facility] [address] [address] [address] Tony Roque Chloride [Moles/Vol] 107 mmol/L Normal 98-107 [facility] Comment on above: Performed By: #### B MP #### [facility] [address] [address] [address] Tony Roque CO2 [Moles/Vol] 31.8 mmol/L Normal 21.0-32.0 [facility] Comment on above: Performed By: #### B MP #### [facility] [address] [place] [address] Dr. Tony Roque Creatinine [Mass/Vol] 0.77 mg/dL Normal 0.70-1.30 [facility] Comment on above: Performed By: #### B MP #### [facility] [address] [address] [address] Tony Roque EGFR-AF CONGOLESE >60 Normal >=60 [facility] Comment on above: Performed By: #### B MP #### [facility] [address] [address] [address] Tony Roque EGFR-NON AF CONGOLESE >60 Normal >=60 [facility] Comment on above: Performed By: #### B MP #### [facility] [address] [address] [address] Tony Roque Glucose [Mass/Vol] 83 mg/dL Normal 74-106 [facility] Comment on above: Performed By: #### B MP #### [facility] [address] [address] [address] Tony Roque Potassium [Moles/Vol] 3.8 mmol/L Normal 3.5-5.1 [facility] Comment on above: Performed By: #### B MP #### [facility] [address] [address] [address] Tony Roque Sodium [Moles/Vol] 144 mmol/L Normal 136-145 [facility] Comment on above: Performed By: #### B MP #### [facility] [address] [address] [address] Tony Roque Urea nitrogen [Mass/Vol] 10.0 mg/dL Normal 7.0-18.0 [facility] Comment on above: Performed By: #### B MP #### [facility] [id number] Tony Roque Urea nitrogen/Creatinine [Mass ratio] 13.0 mg/mg Normal [facility] Comment on above: Performed By: #### B MP #### [facility] [id number] Tony Roque XR ankle LT min 3V*on 2021 XR ankle LT min 3V* [facility] [place] [address] [place] [address] XRay Report Signed Patient: Sandra Boss MR#: [id number] 43 : 1965 Acct:[id number] Age/Sex: 56 / M ADM Date: 12/10/21 Loc: [facility] Attending Dr: Vickie Hart DPM, MS Copies to: Vickie Hart DPM, Ordering Provider: Vickie Hart DPM, MS Date of Service: 12/10/21 XR/XR ankle LT min 3V*: Pain in left ankle XR ankle LT min 3V* 12/10/2021 9:23 AM SIGNS AND SYMPTOMS: Left ankle pain, follow-up fusion PROTOCOL: Frontal, lateral, and oblique radiographs of the left ankle COMPARISON: 05/21/2021 FINDINGS: There is evidence of previous intramedullary steffi fixation across the ankle joint without hardware complication or malalignment. There is evidence of prior osteotomy of the lateral malleolus. There is diffuse soft tissue swelling. No hardware complication or malalignment. XR/XR ankle LT min 3V* IMPRESSION: Status post osteotomy of the lateral malleolus with fusion across the ankle joint. No hardware complication, fracture, or malalignment. Nonspecific soft tissue swelling is redemonstrated. Impression dictated by: Antonio Goodman M.D.12/10/2021 12:23 PM Dictation Location: [place] [address] Transcribed By: [facility] 12/10/211222 Dictated By: Antonio Goodman II, MD 12/10/211221 Signed By: 12/10/213 Normal [facility] XR pre/post mri xrayon 12-05 XR pre/post mri xray [facility] [place] [address] MRI Report Signed Patient: Sandra Boss MR#: [id number] 43 : 1965 Acct:[id number] Age/Sex: 56 / M ADM Date: 12/05/21 Loc: MR Room: Type: [facility] Attending Dr: Evelin Oliver PA-C Copies to: Evelin Oliver PA-C Ordering Provider: Evelin Oliver PA-C Date of Service: 12/05/21 MR/MR cervical spine wo con: R29.898 ([id number]) XR/XR pre/post mri xray: R29.898 MR cervical spine wo con, XR pre/post mri xray 12/05/2021 1:56 PM SIGNS AND SYMPTOMS: Left hand tremors PROTOCOL: Lateral and bilateral oblique radiographs of the cervical spine. Multiplanar multisequence MR images of the cervical spine were obtained without IV contrast. COMPARISON: None. FINDINGS: Radiographs of the cervical spine: There is moderate disc height loss at C5-C6 and C6-C7. There is mild disc height loss at C3-C4. There is accompanying anterior osteophyte formation at these levels with facet hypertrophy. Degenerative joint spurring contribute to neural foraminal narrowing bilaterally. The prevertebral soft tissues are within normal limits. MRI cervical spine: Disc height loss and alignment is as noted above. The cord is normal in signal. No epidural or paraspinous fluid collection is appreciated. The visualized paraspinous soft tissues are within normal limits. The prevertebral soft tissues are within normal limits. At C2-C3: There is a normal disc, central canal, and neural foramen. At C3-C4: There is a broad-based disc bulge with facet and uncovertebral degenerative change contributing to moderate to severe bilateral neural foraminal narrowing with mild spinal canal stenosis. At C4-C5: There is left-sided reactive spurring and facet hypertrophy contributing to moderate left neural foraminal narrowing. No significant spinal canal narrowing. At C5-C6: There is a broad-based disc bulge with facet and into degenerative change contributing to moderate to severe bilateral neural foraminal narrowing and mild spinal canal narrowing. At C6-C7: There is a broad-based disc bulge with facet and uncovertebral joint degenerative change contributing to moderate bilateral neural foraminal narrowing and mild spinal canal narrowing. At C7-T1: There is a normal disc, central canal, and neural foramen. MR/MR cervical spine wo con IMPRESSION: No cord compression or cord signal abnormality. At C3-C4: There is a broad-based disc bulge with facet and uncovertebral degenerative change contributing to moderate to severe bilateral neural foraminal narrowing with mild spinal canal stenosis. At C4-C5: There is left-sided reactive spurring and facet hypertrophy contributing to moderate left neural foraminal narrowing. No significant spinal canal narrowing. At C5-C6: There is a broad-based disc bulge with facet and into degenerative change contributing to moderate to severe bilateral neural foraminal narrowing and mild spinal canal narrowing. At C6-C7: There is a broad-based disc bulge with facet and uncovertebral joint degenerative change contributing to moderate bilateral neural foraminal narrowing and mild spinal canal narrowing. Impression dictated by: Antonio Goodman M.D.12/05/2021 4:45 PM Dictation Location: [place] [address] Transcribed By: [facility] 12/05/21 1645 Dictated By: Antonio Goodman II, MD 12/05/21 1640 Signed By: 12/05/21 [address] [facility] [address] ANKLE LT WO CONon 022 CT ANKLE LT WO CON EXAMINATION: CT ANKLE LT WO CON HISTORY: Chronic osteomyelitis with draining sinus ; left ankle pain when walking, swelling COMPARISON: CT ankle left 09/18/2021 TECHNIQUE: Multi-planar CT images were created without IV contrast. Dose reduction techniques were achieved by using automated exposure control and/or adjustment of mA and/or kV according to patient size and/or use of iterative reconstruction technique. FINDINGS: BONES: Advanced degenerative changes the midfoot and hindfoot with fusion of the ankle joint and hindfoot via an intramedullary steffi and locking screws; no appreciable hardware fracture or loosening. No acute bone fracture. SOFT TISSUES: Interval removal of wound VAC from the lateral ankle. Dense soft tissue fills in the previously seen air-filled sinus/ulcer extending to the lateral margin of the tibiotalar joint, likely granulation tissue. No appreciable new cortical destruction. EFFUSION: None visible. OTHER: Negative. IMPRESSION: 1. Appearance suggests interval development of granulation tissue within prior lateral ankle wound. Mild haziness of the numerous bone fragments along the lateral margin may be secondary to recent changes and ongoing bone healing. Osteomyelitis is not completely excluded. Follow-up recommended. Electronically authenticated by: SAURAV KERNS Date: 2021-11-14 18:02 Normal [facility] 11-04-2021 Consent [id number]# 1.00CD:127 [facility] Registrationon 11-04-2021 Registration [id number]# 1.00CD:127 Normal [facility] Creatinineon 09-19-2021 Creatinine [Mass/Vol] 1.37 mg/dL High 0.64-1.27 [place] Comment on above: Performed By: #### C REAT #### [address] Creatinine Clr Calc Pharmacy 62.91 [facility] Comment on above: Result Comment: PERF ORMED BY: [place] [address] PATHOLOGIST CUFF SLITTER FARHANA MORGAN M.D. Performed By: #### C REAT #### [facility] [place] [address] Estimated GFR ( Lennie > 60 [facility] Comment on above: Result Comment: GFR estimated reference range: According to KDOQI guidelines, <60 ml/min/1.73m2 is sufficient to diagnose a patient with chronic kidney disease. Performed By: #### C REAT #### [facility] [place] [address] [place] [address] [place] Estimated GFR (Non- Am 54 Normal [facility] Comment on above: Performed By: #### C REAT #### [address] Creatinine and Glomerular fi ltration rate.predicted panel (S/P/Bld)Ordered By: Scott Rodriguez on 09-19-2021 Creatinine [Mass/Vol] 1.37 mg/dL 0.64-1.27 [place] Estimated glomerular filtrat ion rate (GFR) non- AmericanOrdered By: Scott Rodriguez on 09-19-2021 GFR/1.73 sq M.predicted among non-blacks MDRD (S/P/Bld) [Vol rate/Area] 54 mL/Min [facility] MR head/brain wo/w conon MR head/brain wo/w con [facility] [place] [address] [place] [address] MRI Report Signed Patient: Sandra Boss MR#: [id number] 43 : 1965 Acct:[id number] Age/Sex: 55 / M ADM Date: 09/19/21 Loc: MR Room: Type: [facility] Attending Dr: James Rodriguez DO Ordering Provider: Scott Rodriguez DO Date of Service: 09/19/21 MR/MR head/brain wo/w con: [id number] Copies to: Scott Rodriguez DO MR head/brain wo/w con 09/19/2021 8:26 AM SIGN AND SYMPTOMS: Left-sided tremors, left arm weakness PROTOCOL: Multiplanar multisequence MR images of the brain were obtained with and without IV contrast CONTRAST: 15 mL of intravenous ProHance COMPARISON: None. FINDINGS: Extra axial spaces: Age appropriate. Hemorrhage: None. Ventricular system: Within normal limits. Basal cisterns: Within normal limits and not effaced. Cerebral parenchyma: T2 and T2 FLAIR hyperintense signal is noted in the left frontal subcortical white matter. This is nonspecific but may represent early chronic microvascular ischemic change. There is no abnormal postcontrast enhancement. Midline shift: None.. Cerebellum: Within normal limits. Brainstem: Within normal limits. OTHER: Calvarium: Normal marrow signal. Vascular system: Satisfactory flow voids within the anterior and posterior circulation. Visualized Paranasal sinuses: Mucosal thickening is noted in the maxillary sinuses. There is also mucosal thickening in the ethmoid air cells. Visualized Orbits: Within normal limits. Visualized upper cervical spine: Within normal limits. Sella and skull base: Within normal limits. MR/MR head/brain wo/w con IMPRESSION: Focal T2 and T2 FLAIR hyperintense signal is noted in the left frontal subcortical white matter. This is nonspecific but may represent early chronic microvascular ischemic change. No acute intracranial pathology. There is no abnormal postcontrast enhancement. Impression dictated by: Antonio Goodman M.D.09/19/2021 10:21 AM Dictation Location: [place] [address] Transcribed By: [facility] 09/19/21 1021 Dictated By: Antonio Goodman II, MD 09/19/21 0957 Signed By: 09/19/21 1021 Normal [facility] No Panel InformationOrdered By: Scott Rodriguez on 09-19-2021 Estimated GFR () > 60 mL/Min [facility] Comment on above: GFR estimated refere nce range: According to KDOQI guidelines, <60 ml/min/1.73m2 is sufficient to diagnose a patient with chronic kidney disease. Pharmacy Creatinine Clearance (Chem 62.91 [facility] CT ANKLE LT WO CONon 022 CT ANKLE LT WO CON EXAMINATION: CT ANKLE LT WO CON HISTORY: Nonunion of fracture COMPARISON: 07/16/2021 TECHNIQUE: Multi-planar CT images were created without IV contrast. Dose reduction techniques were achieved by using automated exposure control and/or adjustment of mA and/or kV according to patient size and/or use of iterative reconstruction technique. FINDINGS: BONES: Stable ankle fusion utilizing a retrograde intramedullary steffi extending from the calcaneus to the tibia and proximally and distally. No mechanical failure. Noted is extensive lucency surrounding the steffi stable in appearance. Marked degenerative changes with [id number] articulation and remodeling of the tibiotalar joint. Remote resection of the fibula. Diffuse permeative pattern of the bones SOFT TISSUES: Significant increase in size of a soft tissue wound along the lateral hindfoot with the wound and air now extending to the posterior margin of the lateral tibia at the posterior tibiotalar joint. Extensive soft tissue swelling and heterotopic ossification EFFUSION: None visible. OTHER: Negative. IMPRESSION: Significant interval progression of a lateral posterior hindfoot soft tissue wound which now extends to but not definitively into the posterior tibiotalar joint definitively Electronically authenticated by: SHIRLEY CASTILLO Date: 2021-09-18 16:30 Normal [facility] Basic Metabolic Panelon 05-0 Calcium [Mass/Vol] 9.8572052 mg/dL Normal 8.2-10 .2 mg/dL [facility] [employer] Other CO2 [Moles/Vol] 24.95129927 mmol/L Normal 22.0-3 0.0 mmol/L [facility] [employer] Other Creatinine [Mass/Vol] 1.73075666 mg/dL Normal 0. 64-1.27 mg/dL [facility] [employer] Other Potassium [Moles/Vol] 4.35829533 mmol/L Normal 3 .5-5.1 mmol/L [facility] [employer] Other Basic Metabolic Panel > 60 [facility] [employer] Other Calcium [Mass/Vol] 9.0 mg/dL Normal 8.2-10.2 [facility] Comment on above: Performed By: #### C MP, CRP #### [facility] [address] [place] [id number] [facility] Chloride [Moles/Vol] 105 mmol/L Normal 95-114 [facility] [employer] Other Comment on above: Performed By: #### C MP, CRP #### [facility] [address] [place] [address] [place] CO2 [Moles/Vol] 24.3 mmol/L Normal 22.0-30.0 [facility] Comment on above: Performed By: #### C MP, CRP #### [facility] [address] [place] [address] [place] Creatinine [Mass/Vol] 1.11 mg/dL Normal 0.64-1.27 [place] Comment on above: Performed By: #### C MP, CRP #### [facility] [address] [place] [address] [place] Estimated GFR ( Lennie > 60 [facility] Comment on above: Result Comment: GFR estimated reference range: According to KDOQI guidelines, <60 ml/min/1.73m2 is sufficient to diagnose a patient with chronic kidney disease. Performed By: #### C MP, CRP #### [facility] [address] [place] [id number] [place] Estimated GFR (Non- Am > 60 [facility] Comment on above: Performed By: #### C MP, CRP #### [facility] [place] [address] [place] [address] [place] Glucose [Mass/Vol] 77 mg/dL Normal 70-100 [facility] [employer] Other Comment on above: Result Comment: [place] om Glucose Reference Range is dependent on time and content of last meal. Glucose of more than 200 mg/dL in a nonstressed, ambulatory subject supports the diagnosis of Diabetes Mellitus. ADA recommended reference range Performed By: #### C MP, CRP #### [facility] [place] [address] [place] [id number] [place] Potassium [Moles/Vol] 4.7 mmol/L Normal 3.5-5.1 [place] Comment on above: Performed By: #### C MP, CRP #### [facility] [place] [address] [place] [id number] [place] Sodium [Moles/Vol] 137 mmol/L Normal 136-146 [facility] [employer] Other Comment on above: Performed By: #### C MP, CRP #### [facility] [place] [address] [place] [id number] [place] Urea nitrogen [Mass/Vol] 17 mg/dL Normal 9-23 [facility] [employer] Other Comment on above: Performed By: #### C MP, CRP #### [facility] [place] [address] [place] [id number] [place] C-Reactive Proteinon 05-06-2 022 C-Reactive Protein 0.7 mg/dL Normal 0.0-1.0 mg/dL [employer] [facility] Other C-Reactive Protein 0.7 mg/dL Normal 0.0-1.0 [facility] Comment on above: Result Comment: PERF ORMED BY: [place] [address] PATHOLOGIST CUFF SLITTER FARHANA MORGAN M.D. Performed By: #### C MP, CRP #### [facility] [place] [address] [place] [id number] [facility] Complete Blood Count Auto Di ffon 08-16-2021 Basophils (Bld) [#/Vol] 0.397366106 10*3/uL Normal 0.0-0.2 10*3/uL [facility] Other Basophils/100 WBC (Bld) 1.800 % . % [employer] Other Eosinophils (Bld) [#/Vol] 0.965042016 10*3/uL Normal 0.0-0.45 10*3/uL [facility] Other Eosinophils/100 WBC (Bld) 2.600 % . % [facility] Other Erythrocyte distribution width (RBC) [Ratio] 14.800 % Normal 12.0-14.8 % [facility] Other Hematocrit (Bld) [Volume fraction] 36.200 % Low 38.8-50.0 % [facility] Other Hemoglobin (Bld) [Mass/Vol] 12.748697 g/dL Low 13.0-17.0 g/dL [facility] Other Lymphocytes (Bld) [#/Vol] 1.155554095 10*3/uL Normal 1.00-4.8 10*3/uL [facility] Other Lymphocytes/100 WBC (Bld) 23.800 % . % [employer] Other MCH (RBC) [Entitic mass] 29.3000 pg Normal 27.5-35.2 pg [facility] [facility] Other MCV (RBC) [Entitic vol] 86.8000 fL Normal 83.5-101 fL [facility] Other Monocytes (Bld) [#/Vol] 0.692420791 10*3/uL Normal 0.0-0.8 10*3/uL [facility] Other Monocytes/100 WBC (Bld) 7.900 % . % [facility] Other Neutrophils (Bld) [#/Vol] 4.086584038 10*3/uL Normal 1.8-7.7 10*3/uL [facility] Other Neutrophils/100 WBC (Bld) 63.900 % . % [facility] Other Platelet mean volume (Bld) [Entitic vol] 9.4000 fL Normal 6.6-10.1 fL [facility] Other RBC (Bld) [#/Vol] 4.7723659877 10*6/uL Normal 3. 90-5.60 10*6/uL [facility] Other WBC (Bld) [#/Vol] 6.536283001 10*3/uL Normal 4.1 -10.5 10*3/uL [facility] Other Complete Blood Count Auto Diff 6.2 10*3/uL Normal 4.5-11.0 10*3/uL [facility] Other Complete Blood Count Auto Diff 33.7 g/dL Normal 32.5-35.6 g/dL [facility] Other Complete Blood Count Auto Diff 0.0 % Normal 0-0.5 % [facility] Other Basophils (Bld) [#/Vol] 0.1 10*3/uL Normal 0.0-0.2 [facility] Comment on above: Result Comment: PERF ORMED BY: [place] [address] PATHOLOGIST CUFF SLITTER FARHANA MORGAN M.D. Performed By: #### C MP, CRP #### [address] Basophils/100 WBC (Bld) 1.8 % Normal . [facility] Comment on above: Performed By: #### C MP, CRP #### [address] Eosinophils (Bld) [#/Vol] 0.2 10*3/uL Normal 0.0-0.45 [facility] Comment on above: Performed By: #### C MP, CRP #### [address] Eosinophils/100 WBC (Bld) 2.6 % Normal . [facility] Comment on above: Performed By: #### C MP, CRP #### [address] Erythrocyte distribution width (RBC) [Ratio] 14.8 % Normal 12.0-14.8 [facility] Comment on above: Performed By: #### C MP, CRP #### [address] Hematocrit (Bld) [Volume fraction] 36.2 % Low 38.8-50.0 [facility] Comment on above: Performed By: #### C MP, CRP #### [address] Hemoglobin (Bld) [Mass/Vol] 12.2 g/dL Low 13.0-17.0 [facility] Comment on above: Performed By: #### C MP, CRP #### [address] Lymphocytes (Bld) [#/Vol] 1.5 10*3/uL Normal 1.00-4.8 [facility] Comment on above: Performed By: #### C MP, CRP #### [address] Lymphocytes/100 WBC (Bld) 23.8 % Normal . [facility] Comment on above: Performed By: #### C MP, CRP #### [facility] [place] [address] MCH (RBC) [Entitic mass] 29.3 pg Normal 27.5-35.2 [facility] Comment on above: Performed By: #### C MP, CRP #### [facility] [place] [address] MCV (RBC) [Entitic vol] 86.8 fL Normal 83.5-101 [facility] Comment on above: Performed By: #### C MP, CRP #### [address] Mean Corpuscular HGB Conc 33.7 g/dL Normal 32.5-35.6 [facility] Comment on above: Performed By: #### C MP, CRP #### [place] [address] [place] Monocytes (Bld) [#/Vol] 0.5 10*3/uL Normal 0.0-0.8 [facility] Comment on above: Performed By: #### C MP, CRP #### [place] [address] [place] Monocytes/100 WBC (Bld) 7.9 % Normal . [facility] Comment on above: Performed By: #### C MP, CRP #### [place] [address] [place] Neutrophils (Bld) [#/Vol] 4.0 10*3/uL Normal 1.8-7.7 [facility] Comment on above: Performed By: #### C MP, CRP #### [place] [address] [place] Neutrophils/100 WBC (Bld) 63.9 % Normal . [facility] Comment on above: Performed By: #### C MP, CRP #### [place] [address] [place] Nucleated RBC/100 WBC (Bld) [Ratio] 0.0 % Normal 0-0.5 [facility] Comment on above: Performed By: #### C MP, CRP #### [address] Platelet mean volume (Bld) [Entitic vol] 9.4 fL Normal 6.6-10.1 [facility] Comment on above: Performed By: #### C MP, CRP #### [address] Platelets (Bld) [#/Vol] 222 10*3/uL Normal 150-450 [employer] [facility] Other Comment on above: Performed By: #### C MP, CRP #### [address] RBC (Bld) [#/Vol] 4.17 10*6/uL Normal 3.90-5.60 [facility] Comment on above: Performed By: #### C MP, CRP #### [address] WBC (Bld) [#/Vol] 6.2 10*3/uL Normal 4.5-11.0 [facility] Comment on above: Performed By: #### C MP, CRP #### [address] C-Reactive Proteinon 022 C-Reactive Protein 2.3 mg/dL High 0.0-1.0 [facility] Comment on above: Result Comment: PERF ORMED BY: [place] [address] PATHOLOGIST CUFF SLITTER FARHANA MORGAN M.D. Performed By: #### C MP, CRP #### [address] Comprehensive Metabolic Pane tyesha 07-22-2021 Albumin [Mass/Vol] 2.9 g/dL Low 3.2-5.5 [facility] Comment on above: Performed By: #### C MP, CRP #### [address] [place] [address] [place] Albumin/Globulin [Mass ratio] 0.9 {ratio} Normal [facility] Comment on above: Performed By: #### C MP, CRP #### [address] ALP [Catalytic activity/Vol] 100 U/L High 32-92 [facility] Comment on above: Performed By: #### C MP, CRP #### [address] ALT [Catalytic activity/Vol] 17 U/L Normal 10-60 [facility] Comment on above: Performed By: #### C MP, CRP #### [facility] [address] [place] [address] AST [Catalytic activity/Vol] 12 U/L Normal 10-42 [facility] Comment on above: Performed By: #### C MP, CRP #### [facility] [address] [place] [address] Bilirubin [Mass/Vol] 0.4 mg/dL Normal 0.3-1.2 [facility] Comment on above: Performed By: #### C MP, CRP #### [facility] [address] [place] [address] Calcium [Mass/Vol] 8.8 mg/dL Normal 8.2-10.2 [facility] Comment on above: Performed By: #### C MP, CRP #### [facility] [address] [place] [address] [place] Chloride [Moles/Vol] 105 mmol/L Normal 95-114 [facility] Comment on above: Performed By: #### C MP, CRP #### [facility] [address] [place] [address] [place] CO2 [Moles/Vol] 24.5 mmol/L Normal 22.0-30.0 [facility] Comment on above: Performed By: #### C MP, CRP #### [facility] [address] [place] [address] Creatinine [Mass/Vol] 0.82 mg/dL Normal 0.64-1.27 [place] Comment on above: Performed By: #### C MP, CRP #### [facility] [place] [address] [place] [address] [place] Estimated GFR ( Lennie > 60 Normal [facility] Comment on above: Result Comment: GFR estimated reference range: According to KDOQI guidelines, <60 ml/min/1.73m2 is sufficient to diagnose a patient with chronic kidney disease. Performed By: #### C MP, CRP #### [facility] [place] [address] [place] [address] [place] Estimated GFR (Non- Am > 60 Normal [facility] Comment on above: Performed By: #### C MP, CRP #### [facility] [place] [address] Globulin (S) [Mass/Vol] 3.1 g/dL [facility] Comment on above: Performed By: #### C MP, CRP #### [address] Glucose [Mass/Vol] 90 mg/dL Normal 70-100 [facility] Comment on above: Result Comment: [place] Glucose Reference Range is dependent on time and content of last meal. Glucose of more than 200 mg/dL in a nonstressed, ambulatory subject supports the diagnosis of Diabetes Mellitus. ADA recommended reference range Performed By: #### C MP, CRP #### [address] Potassium [Moles/Vol] 4.4 mmol/L Normal 3.5-5.1 [place] Comment on above: Performed By: #### C MP, CRP #### [place] [address] [place] Protein [Mass/Vol] 6.0 g/dL Low 6.1-7.9 [facility] Comment on above: Performed By: #### C MP, CRP #### [place] [address] [place] Sodium [Moles/Vol] 138 mmol/L Normal 136-146 [facility] Comment on above: Performed By: #### C MP, CRP #### [facility] [place] [address] [place] [address] Urea nitrogen [Mass/Vol] 11 mg/dL Normal 9-23 [facility] Comment on above: Performed By: #### C MP, CRP #### [address] C-Reactive Proteinon 022 C-Reactive Protein 5.3 mg/dL High 0.0-1.0 [facility] Comment on above: Result Comment: PERF ORMED BY: [place] [address] PATHOLOGIST CUFF SLITTER FARHANA MORGAN M.D. Performed By: #### C MP, CRP #### [address] Comprehensive Metabolic Pane tyesha 07-15-2021 Albumin [Mass/Vol] 3.0 g/dL Low 3.2-5.5 [facility] Comment on above: Performed By: #### C MP, CRP #### [address] Albumin/Globulin [Mass ratio] 0.9 {ratio} Normal [facility] Comment on above: Performed By: #### C MP, CRP #### [address] ALP [Catalytic activity/Vol] 97 U/L High 32-92 [facility] Comment on above: Performed By: #### C MP, CRP #### [address] ALT [Catalytic activity/Vol] 12 U/L Normal 10-60 [facility] Comment on above: Performed By: #### C MP, CRP #### [address] AST [Catalytic activity/Vol] 12 U/L Normal 10-42 [facility] Comment on above: Performed By: #### C MP, CRP #### [address] Bilirubin [Mass/Vol] 0.2 mg/dL Low 0.3-1.2 [facility] Comment on above: Performed By: #### C MP, CRP #### [facility] [address] Calcium [Mass/Vol] 8.8 mg/dL Normal 8.2-10.2 [facility] Comment on above: Performed By: #### C MP, CRP #### [facility] [address] Chloride [Moles/Vol] 105 mmol/L Normal 95-114 [facility] Comment on above: Performed By: #### C MP, CRP #### [facility] [address] CO2 [Moles/Vol] 24.2 mmol/L Normal 22.0-30.0 [facility] Comment on above: Performed By: #### C MP, CRP #### [facility] [place] [address] Creatinine [Mass/Vol] 0.81 mg/dL Normal 0.64-1.27 [place] Comment on above: Performed By: #### C MP, CRP #### [facility] [place] [address] Estimated GFR ( Lennie > 60 [facility] Comment on above: Result Comment: GFR estimated reference range: According to KDOQI guidelines, <60 ml/min/1.73m2 is sufficient to diagnose a patient with chronic kidney disease. Performed By: #### C MP, CRP #### [facility] [address] [place] [address] [place] Estimated GFR (Non- Am > 60 [facility] Comment on above: Performed By: #### C MP, CRP #### [facility] [address] [place] [address] [place] Globulin (S) [Mass/Vol] 3.2 g/dL [facility] Comment on above: Performed By: #### C MP, CRP #### [facility] [address] [place] [address] [place] Glucose [Mass/Vol] 132 mg/dL High 70-100 [facility] Comment on above: Result Comment: [place] Glucose Reference Range is dependent on time and content of last meal. Glucose of more than 200 mg/dL in a nonstressed, ambulatory subject supports the diagnosis of Diabetes Mellitus. ADA recommended reference range Performed By: #### C MP, CRP #### [facility] [address] Potassium [Moles/Vol] 4.3 mmol/L Normal 3.5-5.1 [place] Comment on above: Performed By: #### C MP, CRP #### [facility] [address] Protein [Mass/Vol] 6.2 g/dL Normal 6.1-7.9 [facility] Comment on above: Performed By: #### C MP, CRP #### [facility] [place] [address] Sodium [Moles/Vol] 138 mmol/L Normal 136-146 [facility] Comment on above: Performed By: #### C MP, CRP #### [facility] [address] Urea nitrogen [Mass/Vol] 13 mg/dL Normal 9-23 [facility] Comment on above: Performed By: #### C MP, CRP #### [facility] [address] [place] [address] [place] C-Reactive Proteinon 022 C-Reactive Protein 1.4 mg/dL High 0.0-1.0 [facility] Comment on above: Result Comment: PERF ORMED BY: [place] [address] PATHOLOGIST CUFF SLITTER FARHANA MORGAN M.D. Performed By: #### C MP, CRP #### [facility] [address] Comprehensive Metabolic Pane tyesha 07-08-2021 Albumin [Mass/Vol] 2.9 g/dL Low 3.2-5.5 [facility] Comment on above: Performed By: #### C MP, CRP #### [address] Albumin/Globulin [Mass ratio] 0.9 {ratio} Normal [facility] Comment on above: Performed By: #### C MP, CRP #### [address] ALP [Catalytic activity/Vol] 100 U/L High 32-92 [facility] Comment on above: Performed By: #### C MP, CRP #### [address] ALT [Catalytic activity/Vol] 18 U/L Normal 10-60 [facility] Comment on above: Performed By: #### C MP, CRP #### [address] AST [Catalytic activity/Vol] 20 U/L Normal 10-42 [facility] Comment on above: Performed By: #### C MP, CRP #### [address] Bilirubin [Mass/Vol] 0.4 mg/dL Normal 0.3-1.2 [facility] Comment on above: Performed By: #### C MP, CRP #### [address] Calcium [Mass/Vol] 8.5 mg/dL Normal 8.2-10.2 [facility] Comment on above: Performed By: #### C MP, CRP #### [facility] [address] [place] [address] [place] Chloride [Moles/Vol] 100 mmol/L Normal 95-114 [facility] Comment on above: Performed By: #### C MP, CRP #### [facility] [address] [place] [address] [place] CO2 [Moles/Vol] 26.0 mmol/L Normal 22.0-30.0 [facility] Comment on above: Performed By: #### C MP, CRP #### [facility] [address] [place] [address] Creatinine [Mass/Vol] 0.82 mg/dL Normal 0.64-1.27 [place] Comment on above: Performed By: #### C MP, CRP #### [facility] [place] [address] Estimated GFR ( Lennie > 60 Normal [facility] Comment on above: Result Comment: GFR estimated reference range: According to KDOQI guidelines, <60 ml/min/1.73m2 is sufficient to diagnose a patient with chronic kidney disease. Performed By: #### C MP, CRP #### [facility] [place] [address] Estimated GFR (Non- Am > 60 Normal [facility] Comment on above: Performed By: #### C MP, CRP #### [address] Globulin (S) [Mass/Vol] 3.2 g/dL Normal [facility] Comment on above: Performed By: #### C MP, CRP #### [address] Glucose [Mass/Vol] 95 mg/dL Normal 70-100 [facility] Comment on above: Result Comment: [place] Glucose Reference Range is dependent on time and content of last meal. Glucose of more than 200 mg/dL in a nonstressed, ambulatory subject supports the diagnosis of Diabetes Mellitus. ADA recommended reference range Performed By: #### C MP, CRP #### [address] Potassium [Moles/Vol] 4.3 mmol/L Normal 3.5-5.1 [place] Comment on above: Performed By: #### C MP, CRP #### [address] Protein [Mass/Vol] 6.1 g/dL Normal 6.1-7.9 [facility] Comment on above: Performed By: #### C MP, CRP #### [address] Sodium [Moles/Vol] 135 mmol/L Low 136-146 [facility] Comment on above: Performed By: #### C MP, CRP #### [facility] [address] [place] [address] Urea nitrogen [Mass/Vol] 12 mg/dL Normal 01-03 [facility] Comment on above: Performed By: #### C MP, CRP #### [address] C-Reactive Proteinon 022 C-Reactive Protein 0.7 mg/dL Normal 0.0-1.0 [facility] Comment on above: Result Comment: PERF ORMED BY: [place] [address] PATHOLOGIST CUFF SLITTER FARHANA MORGAN M.D. Performed By: #### C MP, CRP #### [address] Comprehensive Metabolic Pane tyesha 07-05-2021 Albumin [Mass/Vol] 2.8 g/dL Low 3.2-5.5 [facility] Comment on above: Performed By: #### C MP, CRP #### [facility] [address] [place] [address] Albumin/Globulin [Mass ratio] 0.7 {ratio} Normal [facility] Comment on above: Performed By: #### C MP, CRP #### [address] ALP [Catalytic activity/Vol] 102 U/L High 32-92 [facility] Comment on above: Performed By: #### C MP, CRP #### [facility] [address] [place] [address] [place] ALT [Catalytic activity/Vol] 15 U/L Normal 10-60 [facility] Comment on above: Performed By: #### C MP, CRP #### [address] AST [Catalytic activity/Vol] 14 U/L Normal 10-42 [facility] Comment on above: Performed By: #### C MP, CRP #### [facility] [address] [place] [address] [place] Bilirubin [Mass/Vol] 0.4 mg/dL Normal 0.3-1.2 [facility] Comment on above: Performed By: #### C MP, CRP #### [facility] [address] Calcium [Mass/Vol] 8.7 mg/dL Normal 8.2-10.2 [facility] Comment on above: Performed By: #### C MP, CRP #### [facility] [address] Chloride [Moles/Vol] 105 mmol/L Normal 95-114 [facility] Comment on above: Performed By: #### C MP, CRP #### [facility] [address] [place] [address] CO2 [Moles/Vol] 22.8 mmol/L Normal 22.0-30.0 [facility] Comment on above: Performed By: #### C MP, CRP #### [address] Creatinine [Mass/Vol] 0.94 mg/dL Normal 0.64-1.27 [place] Comment on above: Performed By: #### C MP, CRP #### [address] Estimated GFR ( Lennie > 60 [facility] Comment on above: Result Comment: GFR estimated reference range: According to KDOQI guidelines, <60 ml/min/1.73m2 is sufficient to diagnose a patient with chronic kidney disease. Performed By: #### C MP, CRP #### [place] [address] [place] Estimated GFR (Non- Am > 60 [facility] Comment on above: Performed By: #### C MP, CRP #### [place] [address] [place] Globulin (S) [Mass/Vol] 3.8 g/dL [facility] Comment on above: Performed By: #### C MP, CRP #### [facility] [address] [place] [address] [place] Glucose [Mass/Vol] 117 mg/dL High 70-100 [facility] Comment on above: Result Comment: [place] Glucose Reference Range is dependent on time and content of last meal. Glucose of more than 200 mg/dL in a nonstressed, ambulatory subject supports the diagnosis of Diabetes Mellitus. ADA recommended reference range Performed By: #### C MP, CRP #### [facility] [address] Potassium [Moles/Vol] 3.9 mmol/L Normal 3.5-5.1 [place] Comment on above: Performed By: #### C MP, CRP #### [facility] [address] Protein [Mass/Vol] 6.6 g/dL Normal 6.1-7.9 [facility] Comment on above: Performed By: #### C MP, CRP #### [facility] [address] Sodium [Moles/Vol] 138 mmol/L Normal 136-146 [facility] Comment on above: Performed By: #### C MP, CRP #### [facility] [address] [place] [id number] [facility] Urea nitrogen [Mass/Vol] 12 mg/dL Normal 9-23 [facility] Comment on above: Performed By: #### C MP, CRP #### [facility] [address] ED Note-Physicianon 06-23-19 ED Note-Physician Basic Information Time Seen: Na Torres PA-C 06/15/2021 16:09 Chief Complaint L foot/ankle pain. Has had multiple surgeries on ankle. Foot/ankle pain since Thursday. Low back pain started this morning. Increased swelling as well to foot. Unable to put pressure on foot. History of Present Illness Patient is a 55-year-old male with a history of tobacco use and left ankle fusion surgery (03/2021) who presents to the ED with his today for complaint of worsening left foot and ankle pain x4 days. In March 2021 patient had a significant left ankle fracture and underwent surgical repair in [place]. He said following that repair he had to have another surgery for an ankle fusion which was done at [facility] by Dr. Hart. Patient tells me he has been seen for follow-up care and was most recently seen about 2 weeks ago and told that his ankle was improving. Beginning about 4 days ago he began to notice that his ankle was red, more swollen than normal and pain was at about a 4-5/10. He said over the past 4 days it has progressed to now a 10/10. He said the pain is so bad that he is tremulous and cannot stop shaking. Pain is begins in his left ankle but radiates up the bottom of his left calf. He denies numbness, tingling. Endorses weakness and erythema. Patient has been taking Winder and tramadol and naproxen for the pain without relief. He denies any new trauma or injury. 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 He says that the pain is so bad now he can no longer ambulate. Patient denies any fever, chills, chest pain, shortness of breath. He has an everyday tobacco user. Review of Systems ROS: Constitutional: Denies fever, chills, malaise, weight changes, night sweats Pulm: + Tobacco use. Denies SOB, cough, hemoptysis, wheezes CVS: Denies CP, palpitations, edema MSK/Skin/Lymph: + Left ankle redness and swelling. Denies injury/trauma, rashes, wounds, swollen lymphnodes Neuro/Psych: + Left ankle weakness, inability to bear weight. Denies tingling, paresthesias Physical Exam Vitals & Measurements T: 37.7 ?C(Oral) HR: 92(Peripheral) RR: 17 BP: 120/81 SpO2: 98% HT: 183.0 cm HT: 183 cm WT: 75.0 kg WT: 75 kg BMI: 22.4 L LE: Well-healing incisional scar from midfoot to proximal ankle. Marked erythema, edema and mild discoloration of foot and proximal ankle. Warm and tenderness to touch. Unable to palpate DP or PT. No movement at ankle. Pain with movement of knee and hip. Appearance: Appears uncomfortable, tremulous, alert and awake. Slender. Speaking in complete sentences. Vital signs reviewed, temp 39, tachycardic Skin: See LLE otherwise skin is warm dry and intact. He does have minimal edema and brawny discoloration of the right lower extremity but L > R Head: Normocephalic, atraumatic NECK: No cervical spine tenderness. Nml Inspection with good ROM Respiratory: LCTA b/l with normal bilateral excursion. No wheezes, rhonchi, rales. Cardiovascular: RRR, no murmurs. 2+ symmetrical radial pulses. Normal cap refill. Abdomen/GI: Soft, nontender, nondistended. No guarding, rigidity, rebound tenderness. NABS x4. No masses or organomegaly. Neuro: Tremulousness. Tremors become more pronounced with touch or palpation of left lower extremity. Alert and awake, speech Clear, cranial nerves grossly intact. No focal neurological deficit observed. Normal sensation to light touch in all 4 extremities. Patient unable to ambulate. Requires assist to stand. Extremities: No deformity noted on exam. Patient spontaneously moves all 4 extremities. Back: Good ROM. No deformities. Psych: Cooperative. Normal Mood. Affect appropriate to context. Denies SI/HI. Medical Decision Making Patient is a 55-year-old male presents the ED today with complaint of worsening left ankle pain x4 days. He had surgery on the ankle in March and also had surgical fusion of the ankle. Physical exam is significant for erythema, edema and warmth suspicious of infection. I have ordered lab work and pain medicine for patient. His D-dimer is elevated and he will undergo ultrasound. Ultrasound is negative for DVT. Have ordered CT imaging. Labs are significant for elevated D-dimer, elevated sed rate, elevated CRP, leukocytosis with left shift. I suspect patient has an infectious process. He also had an elevated temp of 39 which did resolve with Tylenol. Patient signed out to attending at [address] imaging. Assessment/Plan 1. Osteomyelitis of ankle, left, acute (M86.172: Other acute osteomyelitis, left ankle and foot) 2. Ankle pain, left (M25.572: Pain in left ankle and joints of left foot) 3. S/P ankle fusion (Z98.1: Arthrodesis status) Orders: CT Lower Extremity w/ Contrast Left US LE Venous Duplex Left Medications Administered Given Sodium Chloride 0.9% IV Nicolasa 1000 mL 1,000 mL, 1000 mL, IV acetaminophen 325 mg Tab, 650 mg, Oral cef (more content not included)... Normal [facility] Comment on above: Result Comment: Elec tronically Signed By: Na Torres PA-C\.br\Date and Time Signed: 06/16/21 19:16 EST\.br\Electronically Co-Signed By: Ryan Veronica DO\.br\Date and Time Co-Signed: 06/22/21 12:55 EST Coding Summary.on 06-20-2021 Coding Summary. CD:[id number] Gh0bWw+PGhlYWQ+PE1FV PCsA05oyAKkwG6CT6yQQ G0EIOHDOCDCTY7PMW6yr EO0KUijG8BgvsUl YcwrwYTmPR01PKp5AVL7 qQfmWQqjuH1ueORrQ4c6 UdYfDW50mJ16QAwyEJYy DgV9PuHcokclvTZo J2tsXcZoeZFwVfi+PHRh YmxlIHdpZHRoPScxMDAl EeLelGycIA0pEc3vXMLr LWNvbGxhcHNlOiBj m3gqMXWdIYkoEA1ivTkg R9GmuXG7KLMsq5b7Ha61 dHI+RAUzOOJ3gRfrCKim v291XcUsb6yiAKT0 hMEeJFooDET8G50fv8S5 AYRcIDUhDTB7xMT4oJ1k vMylcwveN4DzxKUwLaS0 IJD2qHRqfY9bkSqf leagdN7gNfk+Y10EID4K EDUIRE5TTzp1B1EyHfxy dHI+XA61LZQuGQ67bCPj mTZyh6drjPs6ZwMz HTGdZCD5gSvbVPksy7Cl LJDnI32waRRal6P6YDTm xGwxqGJwOlRmdOF9vR2f WVpeictyy1iqewyw Uakay3oapc72hO88C74z IEenSJGqTSG2FIJvSWOs qHxeab8nlN3wWw5+IDxj f0jgp2canDj6IoDp GNBjsfLmsVawCXN9r9Ws Ux36K4SjsZhir0OfIin2 te51aCGah4W5sLH4HOst DWSypB9eMUtpJqB4 PZKdDjZocA33kTTxGYva Sl0znPvuoQhoLD6vWFCk gjfhTRUrtG7jQXMroMHs pZieUU3cVQUbrvrr f072IgSzLUI6QZJwtCHi M7ZvuS7yYvEqFPIrKGGe Z3CoaJSwJZkkD904VCtd NgD1DJXwrcZdJ7Ud FRRvrAvjGrU4u0G1Ix1W h3EdaavxAOA2GKayHPRr IgBbNfEqYsY6J7QtBrt4 XSOjeOtnIM4oY1Xk RHHeakslqyidpGX0DMIy UFSjaZ92iYUoHXawVv0n i1W1j705YIVeZPZgjV95 Qe4apZmyXKKciQVK kZ5jdhnbt7fdakrlGcSr VDAqSVi7KLo7ZPKffUlv OlXgXKR5DoL8PUR5eZNs gI4ksAexsatpiC6p Oyc+H55rnJ3jTYV1YWT7 rgleRAAnneRsCA39CU01 U0KtIpoohULseME+PGRp mvIbbCuyOM6hZlGa c5yrp0TdWPgkV3SvQQKg LSohDjc6PAFmCMP6aJX4 wW5bRIEbXJlqs7J4lJN0 H1YktbAmsm3nw5ih LCGkQHkyJ80wvLIxl8C3 EUYebOD7FQOcwOlyVnCs bZ27Xtu+BSGaxRqcf0Pu Hhcim6luv8hlhXo8 IjMwJSIgdmFsaWduPSJ0 t6RyEl06R62cWApcCXDa WUIgIYGzAOLpuTjaqf3s iE0mYe7+PGNvbCB3 aKR1pN7bGXDyFwH3SNyk Y767VdPdxNUrWwfsm0rx r0fwtLs3BhOhNNChjcMl iVxkAMZ4s0YyZh93 V18fRUjlAXSbWRKbYJSg BNIetNygoe4paW9cGj2+ GA0qq8bsnr84gB17sRA+ QINcQPQ9kHgwAWks NPNqhK5nJEogWfM4JPZe DaLyxX91yHQoBGweXf7w uLmwaGxiTR0gZYAwdtjz m987ZqRxb4mvVXBy cMNjRGvmUIK4G02qc3V0 FTCnZZZrFSU0kQD3eH0v bGlnbjogbGVmdDsgdmVy zLziSCghRLzvM754 IHRvcDsnPlBhdGllbnQg UeMrGOm8G3TvHyx6ZKIf wVrvYA3kaHObBKnzXl0s gXqzcKqvSI7xZNWq befhu645QxZhm3gcOTWx yUCeVHkkQIE4P09ic4O1 CFMtCSIgJAS7oVX6hW8u bGlnbjogbGVmdDsg hhLliZxtMYqxTYenT216 IHRvcDsnPkJpcnRoIERh hLJ7MN69BH61jURky0H5 zXC5L5VfVJMliqfh vykteHM4EKHmWVLimP11 Re4asTkwYg5jMMIqDRJ4 AWEwuMWgW9OnoA7sExZg IWUiKMFnD7EyoYOl KSdhJ011NOatNcY9XISw amWuZ9BwXLIzeDofXvZ1 g8Y7Sv3MR2R6BG48BW83 wBRho6H9zLJ0V6Js HRNhrnfmzrxtgZE6JARa YJXwnV06Et8qdUgtRo1t UWZkXRX5XWVhnPYyB4Yd sM0yLbPtHWKaDPPd F2RahBKuUGpxG538ZHwt IzI6VPSfdqBzC5UfQTXw pGkmVvZ8x1U9Ft1LDFt3 BF39HQ81mGAez2T4 wON5F0RmIQYvnbgixevt qPB3XHQzZFJdkK14Zx3v vAmpIf4iFVIcLMI7EUTc oGHeX1FcyV1aAlEe YFZcKSIzI9ZdzMQnILfe C501KZqsRjD7LLBkpzVu L8PoQMMkoQodReJ0m0K5 Vy7RBYFgWR37KBQ8 lWN4MD89RQ12V5QyGaku dGFibGU+PHRhYmxlIHdp ZHRoPScxMDAlJyBzdHls EX4zLg1wSRRvMSIn qNkctTDcPwFmg7mpYWAl WQfjRR4jyUfwB7FuuWS7 UPPex3m7Sz56N71mQ8Zi dXA+RMBbkNW1mYI6 dM3lSgMwWbR1KSxxZ529 IxQaeNNhBfivp8hve3br zUd9FrS6QBNrwhDoqBgu BXW5e1AlLe69G44u IHdpZHRoPSIxNSUiIHZh xLjpym0tmW2cXm5+PGNv jIW4kOS6gN7mPwSbHzV9 GQgqW322QsEckXUw Psraq8guf1hyqZd1CfXs IXXrozKloXttPKA2s9Xa Hi05E4JccInct6LgLfe3 bv14xJKqb1O7aLD1 G8IzVEYvjuzwzSFxlYwr EW1iWRTltiawPJQpeI7o USKaK0y7GrUrDiU2TBjy F4WjgvW8HRPrcRRl DHlpULI8X37se6M4LIXc TBMqXKB3aOQ8pP7wiMcd bjogbGVmdDsgdmVydGlj HMykSNqgZ542AEQx iCkiYVNceC7lEDSxqZSu mYmjYS7qPEMmwazuQcXU OWGUS9QvQQQKHAWfKZpk dGQ+BQVeGLF1aKxj NKphODCgsF3jAQXlZ0z7 HkRaZgD6LXumM1ZrTQPo dgpeYe12tS4pCfHzFqC5 EIalE4LljrM7EXXi fFLdSWipUUV9P95rf0X6 NIBmXBGyXYS8kIN9yR3q bGlnbjogbGVmdDsgdmVy pQugSBgeSEsyK193 FWPpoTykLpT3AbZ2YkS8 KeI2D7MuDxd1MQEmyEks XX8vqWFeMCdhHs8kmXtq nYpzJL8pJVTgkcju QWYllR4yJODleEHvkKve VD6aDVJzgzghl359VsSp USU6RTYroDLqB0KnwI6a IgXmHHSmXZQcY9Va iAQwCEkqU305MClyZlW7 DKIsmaHgO4HzQLNyqXts FpY1e5U0Jn38DDVUVFQn czwvdGQ+PHRkIHN0 fEewSPptZFRtcN4iLKWb X0a9AgVpAsD1TKcaK0Ct NAEegvzmMd26eM0yUfMy HyX2WHfcB6JsjfN5 HJDmuFEnAGawAGV3C49a w3L0KJPuYAVgMLJ7aXR9 gR9zsRyylagxpKStbEhq dmVydGljYWwtYWxp Q174XJOgrChzKu4uoPI7 Z4CtGhk7AYEnpIrkNY1h uXPrWAimTk7ajCinxGtg RL2cBVXrzhqyRIVa uE0fAHWolZWrfIyfYC7j JYHulfhne940ZgNmMWS2 NIVphNVqZ5MriE5jOnSa PYHkUSQzO4LsoFCr BMefI224ZKdjYsN6LUHc hqQvS2JsCJShkPqeRlV4 q4Z0Xf9QsVCdG2DfC1m3 J9GeCmefhYK+PC90 XCKnTU06vPMpmMVmk2qd kVf9VwZcROBsHEI3fKxu DCpbs3MmPYJiX71ptBSh y9H7ZWIziCzgoRDv VoMveNR7eS8gXJsavthx y8wpvvhzLbjvf2qnnc42 kS69V98zEIbmCFXgRMCg SSEeAVDhxQwekt0m sT3eEn0+VSTonBE9aFR9 xZ1qIyArGpI1CUesF859 JnNmeVIxOykrt7vjm8bw hOg3HbKsHBHupfTv sWihKVX5e0ZgGg19V58k IHdpZHRoPSIyMCUiIHZh nGghga1feP5aXe1+PC9j y9klzf72iR63kUU+ UADrABO1nBsqTWpuKZTm dO5gRRhrTbF3VLNoViAr pX16cCNnXSpzEa4xcRxt eBrgRV7nNWUvswam r474JqUsm8bnYAQitNJo YTbmZXV5C65jr6B1YQUv XVYgFHD8xKD3gN3rfJbq bjogbGVmdDsgdmVy hDtwSAluVIjaJ703CPGy dXknZhUewRFaU6hkxhWB DW4ePkuysTA+PHRkIHN0 iAfvAQqmBIZieR4w NEVtI7s7PyFsLyL1WZxb Z2VkseJ2BFVwwUJpGNDk dIXGyN3qnycst2mludli HlEaYAFgTPv5QNl7 NIEjkNsdVmZuFNC0CrW2 JKA7bZDhhR7lvXzjutqe rE1hWim+RklOOjwvdGQ+ KMXmSWI7wYoyAXaj CKXcxW2cHKOmN5p6QhZm VxO1IFfkG4AtbtM0FZIb eSCiUDCuiNIZfG0ilckf y8vwtksbMeRpAKOy XZe8URh4MGRtdFzqGlEq XZP2CjV7ZTM6bAUkiZ4n uShhsktjqB8fDea+TVJO OjwvdGQ+PHRkIHN0 nPlmOXxbERFuoX3sMXEn A5c7ZdJsCcD0GZraZ5Qt izJ1FZTwiWVwEMCxfXBM sK6sypaqt6dhbgqv MlLiINAtPIu1RNn3GLWu mTxkErPbPJT2OkU2LKU4 pPOnnF2xlFeywkabgU3z Oyc+MHS2YVM2XN46 TL69Q8ZuLcmqjDHosXB+ PHRhYmxlIHdpZHRoPScx UQRbUbRccSncKI7pXs0s ZGVyLWNvbGxhcHNl OiBj (more content not included)... Normal [facility] ED Noteon 06-19-2021 ED Note Culture results sent to [facility]. Normal [facility] ED Noteon 06-17-2021 ED Note Chandni Wylie from [facility] Surgical dept. called to see if we performed a covid test while the patient was here on Thursday06/15/2021. She verified the information and I advised her we did not. That's all they needed. Normal [facility] CT Lower Extremity w/ Contra st Lefton 06-16-2021 CT Lower Extremity w/ Contrast Left Exam Date/Time: 06/15/2021 19:29 EST Reason for Exam: Pain Report IMPRESSION: POSTSURGICAL CHANGES LEFT TIBIA AND FIBULA. FINDINGS CONSISTENT WITH A SOFT TISSUE ABSCESS INVOLVING THE LEFT LOWER LEG AND ANKLE AND WITH SUSPECTED OSTEOMYELITIS. CLINICAL HISTORY: Pain COMMENT: Intravenous contrast enhancement images were obtained. 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 There are proximal interlocking screws at the mid shaft level of the tibia and there are distal interlocking screws extending into the calcaneus. There is lucency of bone of the distal tibia and of the talus adjacent to the intramedullary steffi at the ankle level. There are some linear lucencies involving the tibia, fibula, and calcaneus, consistent with sites of previously removed surgical screws or pins. The distal end of the fibula has been resected. There is lucency at the base of the medial malleolar process of the distal tibia, suggesting a partially fused fracture line. There is prominent abnormality of the distal tibia and of the talus at the tibial talar joint. There are patchy areas of bony lucency and sclerosis involving the distal tibia and talus at the ankle. There are multiple small bony densities peripheral to these bones at the ankle. Some of the small separate bony densities are located within an extensive contained lobulated area of lower soft tissue attenuation, that collects around the periphery of the distal femoral shaft and at the ankle, with collections anterior, lateral, and posterior medial. There are some small gas bubbles associated with the collections. The findings are consistent with an abscess. Patchy bone lucencies are suspicious for osteomyelitis involving the distal tibia, talus, and anterior superior calcaneus. There are multiple small lucencies involving tarsal bones and proximal metatarsal bones, with differentiation between disuse osteoporosis and osteomyelitis difficult. In addition to involvement of the deep soft tissues of the left lower leg and ankle, there are also findings consistent with cellulitis of superficial subcutaneous soft tissues. All CT scans at this facility use dose modulation, iterative reconstruction, and/or weight based dosing when appropriate to reduce radiation dose to as low as reasonably achievable. FINAL REPORT Dictated: 06/16/2021 10:40 am Rio Lopes M.D. Signed (Electronic Signature): 06/16/2021 10:40 am Signed by: Rio Lopes M.D. Transcribed by: LUKASZ Technologist: JIL Technical Comments GFR (mL/min/1/73m2) 57 Contrast: Isovue 300 Technical Comments Contrast amount in ml's: 100 Normal [facility] ED Clinical Summaryon 2021 ED Clinical Summary [address] [address] ED Clinical Summary Person Information Name: SANDRA BOSS/[facility] Age: 55 Years : 1965 Sex: Male Language: Russian PCP: CLARE BRANDT DO Marital Status: Visit Id: Visit Reason: Foot pain-swelling; LEFT ANKLE PAIN Speciality: Acuity: 2 Enc Type: Emergency Med Service: Emergency Arrival: 06/15/2021 14:24:40 Discharge: 06/16/2021 02:23:03 LOS: 000 11:59 Checkin: 06/15/2021 14:24:40 Checkout: 06/16/2021 02:23:03 Dispo Type: Short-Term Hosp as IP EVENTS: Event Name Event Status Request Date/Time Start Date/Time Complete Date/Time Arrive Complete 06/15/2021 14:24:40 06/15/2021 14:24:40 06/15/2021 14:24:40 Document Home Meds Request 06/15/2021 14:24:40 Triage Complete 06/15/2021 14:24:40 06/15/2021 14:33:33 06/15/2021 14:33:33 Bed Assign Complete 06/15/2021 14:27:04 06/15/2021 14:27:04 06/15/2021 14:27:04 Dr Exam Complete 06/15/2021 14:27:04 06/15/2021 16:09:35 06/15/2021 16:09:35 RN Exam Complete 06/15/2021 14:27:04 06/15/2021 14:49:03 06/15/2021 14:49:03 Registration Complete 06/15/2021 16:09:35 06/15/2021 17:07:42 06/15/2021 17:07:42 Pending Labs Complete 06/15/2021 16:18:01 06/15/2021 17:21:13 Lab Complete 06/15/2021 16:18:01 06/15/2021 17:21:13 Meds Admin Complete 06/15/2021 16:18:01 06/15/2021 16:36:53 US Complete 06/15/2021 16:19:31 06/15/2021 16:21:23 06/15/2021 16:48:19 Pending Labs Complete 06/15/2021 16:38:35 06/15/2021 16:38:35 06/15/2021 17:21:15 Lab Complete 06/15/2021 16:38:35 06/15/2021 16:38:35 06/15/2021 17:21:15 Reg Complete Request 06/15/2021 17:07:42 Pending Labs Complete 06/15/2021 17:19:50 06/15/2021 17:19:50 06/15/2021 17:19:56 Lab Complete 06/15/2021 17:19:50 06/15/2021 17:19:50 06/15/2021 17:19:56 Possible SIRS Request 06/15/2021 17:25:13 Pending Labs Complete 06/15/2021 17:30:47 06/15/2021 17:30:47 06/15/2021 17:30:47 Meds Admin Complete 06/15/2021 17:34:53 06/15/2021 17:41:26 Meds Admin Complete 06/15/2021 18:01:06 06/15/2021 18:31:11 Meds Admin Request 06/15/2021 18:01:34 CT Complete 06/15/2021 18:22:43 06/15/2021 19:28:23 06/15/2021 19:29:04 Dr Exam Complete 06/15/2021 18:55:32 06/15/2021 18:55:32 06/15/2021 18:55:32 Registration Request 06/15/2021 18:55:32 Dr Exam Complete 06/15/2021 19:41:40 06/15/2021 19:41:40 06/15/2021 19:41:40 Meds Admin Complete 06/15/2021 20:02:17 06/15/2021 20:09:00 Meds Admin Request 06/15/2021 21:30:58 Pending Labs Inlab 06/15/2021 21:30:58 Lab Inlab 06/15/2021 21:30:58 Meds Admin Complete 06/15/2021 21:42:35 06/15/2021 22:24:27 Meds Admin Cancel 06/15/2021 21:46:10 06/15/2021 22:00:03 Patient Care Request 06/15/2021 22:38:19 Transfer Complete 06/15/2021 22:38:19 06/16/2021 02:23:28 06/16/2021 02:23:28 Meds Admin Complete 06/15/2021 22:59:02 06/15/2021 23:20:40 Meds Admin Complete 06/15/2021 23:45:13 06/16/2021 01:56:24 Meds Admin Complete 06/16/2021 01:46:30 06/16/2021 01:56:01 Patient Care Request 06/16/2021 02:22:28 Discharge Complete 06/16/2021 02:23:28 06/16/2021 02:23:28 06/16/2021 02:23:28 ADDRESS: [id number] PH[facility] DOC NOTES: MEDICAL INFORMATION: Prescriptions Given: Medications to Continue with No Changes Other Medications acetaminophen-hydroc odone (Winder 325 mg-5 mg oral tablet) 1 Tablets By Mouth every 4 hours as needed for pain. Refills: 0. multivitamin with minerals (Multivitamins and Minerals) one tab By Mouth every day. naproxen (Naprosyn 500 mg Tab) 1 Tablets By Mouth 2 times a day. tramadol (traMADOL 50 mg Tab) 1 or 2 tabs By Mouth every 4 hours. PATIENT EDUCATION INFORMATION: Instructions: Follow up: DIAGNOSIS: 1:Osteomyelitis of ankle Normal [facility] ED Noteon 06-16-2021 ED Note 2046-Called podiatry group at [facility] with which patient follows with Dr. Delaney. Attending Dr. Veronica spoke with on-call carpenter assembler Dr. Fair. 2101-Called [facility] and spoke with Lisandra, hospital anhydrous ammonia production supervisor. Faxed facesheet.Dr. Goldstein is attending hospitalist. 2107-Lisandra returned call and stated Dr. Goldstein accepts. Patient going to 2128-called [facility] for ETA. ETA 0230. As patient has no insurance [facility] to call back with pricing. Stated patient had to pay upfront or either hospital needed to take financial responsibility. fitter mechanic Paige spoke with ER anhydrous ammonia production supervisor Yolis who stated [facility] would accept cost. [facility] paperwork faxed. Awaiting return call for cost. Report given to oncpaulina laboratory secretary Marielos. Report #-[id number] Normal [facility] ED Patient Education Noteon 06-16-2021 ED Patient Education Note Normal [facility] ED Patient Summaryon 022 ED Patient Summary [place] [id number] Patient Discharge Instructions Person Information Name: SANDRA BOSS Age: 55 Years Arrival Date: 06/15/2021 14:24:40 Discharge Diagnosis: 1:Osteomyelitis of ankle Primary Care Physician: CLARE BRANDT DO Provider Information Primary Provider: Ryan Veronica DO Advanced Project Manager Process Development:Na Torres PA-C The exam and treatment you received in the Emergency Department were for an urgent problem and are not intended as complete care. It is important that you follow up with a doctor, nurse practitioner, or physician?s photography assistant for ongoing care. If your symptoms become worse or you do not improve as expected and you are unable to reach your usual health care provider, you should return to the Emergency Department. We are available 24 hours a day. SANDRA BOSS has been given the following list of patient education materials, prescriptions and follow-up instructions: Follow-up Instructions: In the event that this physician does not participate in your insurance network, please consult with your insurance company to find a nearby participating provider. Patient Education Materials: A MESSAGE TO ALL PATIENTS REGARDING OPIOIDS PRESCRIPTION OPIOIDS: WHAT YOU NEED TO KNOW Prescription opioids can be used to help relieve ojqyeunz-hd-hqeacd pain and are often prescribed following a surgery or injury, or for certain health conditions. These medications can be an important part of the treatment but also come with serious risks. It is important to work with your healthcare provider to make sure you are getting the safest, most effective care. WHAT ARE THE RISKS AND SIDE EFFECTS OF OPIOID USE? Prescription opioids carry serious risks of addiction and overdose, especially with prolonged use. An opioid overdose, often marked by slowed breathing, can cause sudden . The use of prescription opioids can have a number of side effects as well, even when taken as directed: ? Tolerance?meaning you might need to take more of the medication for the same pain relief ? Physical dependence?meaning you have symptoms of withdrawal when a medication is stopped ? Increased sensitivity to pain ? Constipation ? Nausea, vomiting, and dry mouth ? Sleepiness and dizziness ? Confusion ? Depression ? Low levels of testosterone that can result in lower sex drive, energy, and strength ? Itching and sweating RISKS ARE GREATER WITH: ? History of drug misuse, substance use disorder, or overdose ? Mental health conditions (such as depression or anxiety) ? Sleep apnea ? Older age (65 years and older) ? Avoid alcohol while taking prescription opioids. Also, unless specifically advised by your health care provider, medications to avoid include: ? Benzodiazepines (such as Xanax or Valium) ? Muscle relaxants (such as Soma or Flexeril) ? Hypnotics (such as Ambien or Lunesta) ? Other prescription opioids KNOW YOUR OPTIONS Talk to your health care provider about ways to manage your pain that don?t involve prescription opioids. Some of these options may actually work better and have fewer risks and side effects. Options may include: ? Pain relievers such as acetaminophen, ibuprofen, and naproxen ? Some medication that are also used for depression or seizures ? Physical therapy and exercise ? Cognitive behavioral therapy, a psychological, goal-directed approach, in which patients learn how to modify physical, behavioral, and emotional triggers of pain and stress. IF YOU ARE PRESCRIBED OPIOIDS FOR PAIN: ? Never take opioids in greater amounts or more often than prescribed. ? Follow up with your primary health care provider. o Work together to create a plan on how to manage your pain. o Talk about ways to help manage your pain that don?t involve prescription opioids. o Talk about any and all concerns and side effects. ? Help prevent misuse and abuse o Never sell or share prescription opioids. o Never use another person?s prescription opioids. ? Store prescription opioids in a secure place and out of reach of others (this may include visitors, children, friends, and family). ? Safely dispose of unused prescription opioids: Find your community drug take-back program or your pharmacy mail-back program, or flush them down the toilet, following guidance from the Food and Drug Administration (www.fda.gov/Drugs/R esourcesForYou). ? Visit www.cdc.gov/drugover dose to learn about the risks of opioids abuse and overdose. ? If you believe you may be struggling with addiction, tell your health auto care center manager and ask for guidance or call [employer] National Helpline at 6-159-824-HELP. v Source: [place] Department of Health and Human Services/Center for Disease Control & Prevention [facility] Medications Given: Medication Dos (more content not included)... Normal [facility] Progress Note-Nurseon 2021 Progress Note-Nurse Pt. resting with eyes closed, and unlabored respirations. Orphenadrine not given at this time, Dr. James aware. Normal [facility] Progress Note-Nurse Called report to [facility] spoke with Mildred CINTRON for room 213 Patient updated on poc and call light in reach [facility] Transfer Documentson 022 Transfer Documents [id number]#1.00CD:127 Normal [facility] US LE Venous Duplex Lefton 0 06-16-2021 LE Venous Duplex Left Exam Date/Time: 06/15/2021 16:48 EST Reason for Exam: Cellulitis Report IMPRESSION: NO EVIDENCE OF VENOUS THROMBOSIS INVOLVING VISUALIZED DEEP VEINS OF THE LEFT LEG. CLINICAL HISTORY: Cellulitis. Left leg pain. COMMENT: On the left, the greater saphenous vein, common femoral vein, deep femoral vein, femoral vein, and popliteal vein demonstrate spontaneous phasic venous flow, with augmentation, non-pulsatility, and compressibility every 2 cm. The left posterior tibial and peroneal veins of the deep venous system compress. The contralateral right common femoral vein demonstrates spontaneous phasic venous flow. FINAL REPORT Dictated: 06/16/2021 1:09 pm Rio Lopes M.D. Signed (Electronic Signature): 06/16/2021 1:09 pm Signed by: Rio Lopes M.D. Transcribed by: LUKASZ Technologist: YESSY Normal [facility] Auto Diffon 06-15-2021 Basophils/100 WBC (Bld) 0.4 % Normal 0.0-2.0 [facility] Comment on above: Order Comment: Order Added by Discern Expert. Performed By: #### 2 887994, 24962445, 0479143, 5352704, 00580526, 2102824, 8008771 ####[place] [address] [place] [address] Basophils/Leukocytes Auto (Bld) [Pure # fraction] 0.1 E9/L Normal 0.0-0.2 [facility] Comment on above: Order Comment: Order Added by Discern Expert. Performed By: #### 2 101958, 27820690, 7926972, 0987262, 87570501, 1176097, 7161396 ####[place] [address] [place] [address] Eosinophils/100 WBC (Bld) 0.1 % Normal 0.0-8.0 [facility] Comment on above: Order Comment: Order Added by Discern Expert. Performed By: #### 2 012599, 96117502, 9501090, 7358097, 86558583, 4003748, 8668213 ####[address] [address] Eosinophils/Leukocytes Auto (Bld) [Pure # fraction] 0.0 E9/L Normal 0.0-0.5 [facility] Comment on above: Order Comment: Order Added by Discern Expert. Performed By: #### 2 298547, 14553700, 0463911, 5681204, 55757989, 8486989, 9209480 ####[address] [address] Lymphocytes/100 WBC (Bld) 4.1 % Low 14.0-50.0 [facility] Comment on above: Order Comment: Order Added by Discern Expert. Performed By: #### 2 568920, 31425009, 9112884, 8321450, 66047469, 9149095, 0411952 ####[address] [address] Lymphocytes/Leukocytes Auto (Bld) [Pure # fraction] 0.5 E9/L Low 1.0-4.0 [facility] Comment on above: Order Comment: Order Added by Discern Expert. Performed By: #### 2 384583, 19521215, 3016768, 2544580, 84532201, 8593090, 1712751 ####[facility] [address] [place] [address] Monocytes/100 WBC (Bld) 6.1 % Normal 4.0-14.0 [facility] Comment on above: Order Comment: Order Added by Discern Expert. Performed By: #### 2 953805, 45219800, 9185796, 2323134, 39992135, 9977815, 7253517 ####[facility] [address] [place] [address] Monocytes/Leukocytes Auto (Bld) [Pure # fraction] 0.8 E9/L Normal 0.2-1.0 [facility] Comment on above: Order Comment: Order Added by Discern Expert. Performed By: #### 2 140824, 09409160, 7422496, 9347336, 29092138, 6096193, 4505324 ####[facility] [address] [place] [address] Neutrophils/100 WBC (Bld) 89.3 % High 36.0-75.0 [facility] Comment on above: Order Comment: Order Added by Discern Expert. Performed By: #### 2 472442, 90503426, 3865876, 2119853, 03832776, 7537391, 7103516 ####[facility] [address] [place] [address] Neutrophils/Leukocytes Auto (Bld) [Pure # fraction] 12.1 E9/L High 2.0-7.5 [facility] Comment on above: Order Comment: Order Added by Discern Expert. Performed By: #### 2 262864, 60596109, 2026099, 3257556, 69361081, 6638369, 6210444 ####[facility] [address] [place] [address] BMPon 06-15-2021 Creatinine [Mass/Vol] 1.3 mg/dL Normal 0.5-1.3 [facility] Comment on above: Performed By: #### 2 429958, 66912272, 0440419, 1365414, 87920363, 0159915, 8977735 ####[facility] [address] [place] [address] Urea nitrogen [Mass/Vol] 18 mg/dL Normal 5-21 [facility] Comment on above: Performed By: #### 2 942256, 13519667, 4884125, 9568821, 49958540, 8425298, 2720737 ####[facility] [address] [place] [address] Urea nitrogen/Creatinine [Mass ratio] 14 No Units Normal 10-20 [facility] Comment on above: Performed By: #### 2 514012, 94720615, 6086272, 2888193, 77281854, 8411922, 7466282 ####[facility] [address] [place] [address] Anion gap [Moles/Vol] 12 mmol/L Normal 6-16 [facility] Comment on above: Performed By: #### 2 795738, 06457632, 6377320, 0521967, 04716989, 2135023, 4798503 ####[facility] [address] [place] [address] Calcium [Mass/Vol] 8.6 mg/dL Low 8.9-11.1 [facility] Comment on above: Performed By: #### 2 573568, 10670330, 6698775, 4872698, 33429240, 6085074, 8909356 ####[facility] [address] [place] [address] Chloride [Moles/Vol] 102 mmol/L Normal 101-111 [facility] Comment on above: Performed By: #### 2 365566, 32248118, 4168161, 9227873, 76678769, 2153918, 7446165 ####[facility] [address] [place] [address] CO2 [Moles/Vol] 24 mmol/L Normal 21-31 [facility] Comment on above: Performed By: #### 2 036426, 28536660, 5752286, 8534250, 85691955, 1393061, 2904277 ####[facility] [address] [place] [address] Glucose [Mass/Vol] 145 mg/dL Normal 55-199 [facility] Comment on above: Result Comment: If t his glucose result represents a fasting glucose, interpretation should refer to the following reference range: 55-99 mg/dL Performed By: #### 2 848211, 33023947, 0487549, 7875601, 01503586, 2042748, 2409593 ####[facility] [address] [place] [address] Potassium [Moles/Vol] 3.8 mmol/L Normal 3.5-5.3 [facility] Comment on above: Performed By: #### 2 932577, 08717839, 7668577, 4728164, 36726249, 2182056, 8590570 ####[facility] [address] [place] [address] Sodium [Moles/Vol] 134 mmol/L Low 135-145 [facility] Comment on above: Performed By: #### 2 807966, 34954655, 8995524, 9049527, 03588121, 7141733, 1297121 ####[facility] [address] [place] [address] CBC w/ Auto Diffon 2 Erythrocyte distribution width (RBC) [Ratio] 13.6 % Normal 10.9-14.2 [facility] Comment on above: Performed By: #### 2 311527, 62081575, 9057126, 2487299, 90502533, 2203645, 3762916 ####[facility] [address] [place] [address] Hematocrit (Bld) [Volume fraction] 37.7 % Normal 37.7-49.0 [facility] Comment on above: Performed By: #### 2 917325, 07213739, 3708659, 4786766, 42205175, 2302773, 5676841 ####[place] [place] [address] Hemoglobin (Bld) [Mass/Vol] 12.6 g/dL Low 13.5-17.5 [facility] Comment on above: Performed By: #### 2 742725, 18064693, 7830475, 9196000, 66824488, 8618114, 7232237 ####[address] [address] MCH (RBC) [Entitic mass] 29.0 pg Normal 27.0-34.0 [facility] Comment on above: Performed By: #### 2 100523, 95690398, 8986059, 6498976, 50831249, 0295388, 8937124 ####[place] [address] MCHC (RBC) [Mass/Vol] 33.5 g/dL Normal 31.4-36.0 [facility] Comment on above: Performed By: #### 2 875999, 75469071, 3518168, 8030377, 20297149, 3971171, 3798456 ####[address] [address] MCV (RBC) [Entitic vol] 86.6 fL Normal 80.0-100.0 [facility] Comment on above: Performed By: #### 2 542549, 92330040, 5884305, 5827043, 33076193, 6398940, 8795857 ####[address] [address] Platelet mean volume (Bld) [Entitic vol] 9.5 fL Normal 6.4-10.8 [facility] Comment on above: Performed By: #### 2 775330, 11350100, 6134215, 8651972, 96673553, 9332675, 7461477 ####[address] [place] [address] Platelets (Bld) [#/Vol] 189.0 E9/L Normal 150.0-500.0 [facility] Comment on above: Performed By: #### 2 100946, 76235178, 9369875, 4311187, 39540073, 0677357, 6157252 ####[facility] [address] [place] [address] RBC (Bld) [#/Vol] 4.4 E12/L Normal 4.3-5.9 [facility] Comment on above: Performed By: #### 2 376446, 77706444, 0025414, 8752416, 00753693, 7498793, 9953662 ####[facility] [address] [place] [address] WBC corrected for nucl RBC Auto (Bld) [#/Vol] 13.5 E9/L High 4.0-11.0 [facility] Comment on above: Result Comment: Slid e reviewed by ts. Performed By: #### 2 757594, 50905851, 7512126, 1148894, 88949564, 3307891, 0920735 ####[facility] [address] [place] [address] CRPon 06-15-2021 CRP [Mass/Vol] 31.1 mg/dL High <=1.9 [facility] Comment on above: Performed By: #### 2 985460, 61269659, 7467040, 3288834, 80273196, 5871791, 7972193 ####[facility] [address] [place] [address] Consent for Treatmenton Consent for Treatment [id number] #1.00CD:127 Normal [facility] D-Dimeron 06-15-2021 Fibrin D-dimer FEU (PPP) [Mass/Vol] 2227 [id number] Abnormal 215-500 [facility] Comment on above: Result Comment: [facility] And Read Back For Confirmation On 06/15/2021 17:13:10 EST Results Verified By Repeat Analysis This assay is intended for use as an aid in the diagnosis of DVT or PE. These conditions cannot be excluded with certainty solely on the basis of a D-dimer concentration being within the reference range This D-Dimer assay may be used in conjunction with a non-high clinical pretest probability assessment to exclude deep-vein thrombosis(DVT). For exclusion of venous thrombosis or pulmonary embolism the analyte D-Dimer should not be used as an aid in patients with: Therapeutic dose anticoagulant therapy for >24 hours Fibrinolytic therapy within previous 7 days Trauma or surgery within previous 4 weeks Disseminated malignacies Aortic aneurysm Sepsis, severe infections, pneumonia, severe skin infections Liver cirrhosis Performed By: #### 2 538025, 08333900, 2697127, 2109658, 88581890, 5493513, 6064909 ####[place] [address] [place] [id number] ED Note-Physicianon 06-16-19 ED Note-Physician This 55-year-old white male presented to the emergency room with a complaint of pain in his left foot and ankle as well as lower leg. The patient states that the pain began 4 days ago. Patient suffered a severe fracture of the left ankle in March. It is my understanding that he initially was operated at [facility], that that surgical intervention failed and he underwent subsequent operative intervention by Dr. Hart at [facility] sometime after that. The patient indicates that his ankle is fused. He states he typically obviously walks with a significant limp but now can no longer bear any weight secondary to severe pain. Vital signs demonstrated temperature of 37.7, blood pressure 120/82, heart rate 90, respiratory rate 17, pulse ox is 98%. Patient is awake and alert he is in no acute distress he is nontoxic. HEENT demonstrates the head to be normocephalic and atraumatic. Lung sounds are clear to auscultation bilaterally. Cardiac auscultation demonstrates a normal rate with a regular rhythm. The abdomen is soft and without peritoneal findings. Examination of the patient's left lower extremity demonstrates the left leg below the knee to be hot to the touch. There is significant erythema. There are multiple healed surgical incisions. There is tenderness diffusely about the proximal foot ankle and lower leg. The patient has virtually no range of motion at the ankle keeping in mind that he indicates that it is fused. White blood cell count was 13,500, hemoglobin 12.6, platelet count is normal at 189,000. There is a predominance of neutrophils on the automated count as well as the absolute neutrophil count. Sed rate is elevated at 32, CRP is elevated at 31. Basic metabolic panel is reasonably physiologic. CAT scan of the distal left lower extremity was read by the radiologist as intramedullary steffi noted within the tibia the distal fibula is absent. There are multiple osseous fragments/osseous destruction seen within the soft tissues noted within the tibia/ankle moderate amount of edema is noted within the soft tissues and muscle bellies. There is a moderate sized fluid collection seen anterior to the tibia measured to 4.6 cm. Question osteomyelitis with abscess. This patient was operated by Dr. Hart. I did speak with his fellow Dr. Reid Lopez. He has asked if the patient could be transferred to [facility] under the hospitalist. He indicates that the hospitalist is Dr. Kenyatta Goldstein. The coating and embossing unit operator, fazal spoke with the house manager at [facility] who spoke with the hospitalist who gave a verbal commitment to accept the patient without speaking to me. I did recontact Dr. Lopez, I have ordered Zosyn and vancomycin. Please note the patient did receive 1 g of Rocephin earlier in his ER stay. I have ordered blood cultures as well. The patient will be transferred by ambulance. Final diagnosis: #1 osteomyelitis left tibia/ankle I provided vbop-da-utdx evaluation of this patient. I have seen and evaluated the patient and I agree with the physician assistants history, physical examination, diagnostic evaluation, treatment and disposition of this patient. Please note I performed the medical decision making entirely on this patient. I performed the transfer of this patient as well. Normal [facility] Comment on above: Result Comment: Elec tronically Signed By: Ryan Veronica DO.eddie\Date and Time Signed: 06/15/21 21:33 EST Sed Rate Automatedon 022 Sed Rate Automated 32 mm/hr High 0-19 [facility] Comment on above: Performed By: #### 2 385424, 12699329, 9678991, 6878126, 98301411, 7618561, 4549587 ####[facility] [address] [place] [address] eGFRon 06-15-2021 GFR/1.73 sq M.predicted among blacks MDRD (S/P/Bld) [Vol rate/Area] mL/min/{1.73_m2} Normal >=59 [facility] Comment on above: Order Comment: Order added by Discern Expert. Result Comment: eGFR is race adjusted. AA=. Performed By: #### 2 387086, 03456280, 1719475, 2570261, 42754468, 4453874, 1082347 ####[facility] [address] [place] [address] GFR/1.73 sq M.predicted among non-blacks MDRD (S/P/Bld) [Vol rate/Area] 57 mL/min/1.73 m2 Low >=59 [facility] Comment on above: Order Comment: Order added by Discern Expert. Result Comment: Kennel Manager ijeoma kidney disease could be indicated at eGFR's of less than 60 mL/min/1.73m2. Kidney failure is indicated at less than 15 mL/min/1.73m2. Performed By: #### 2 100950, 16106585, 9822437, 4752715, 85703188, 3334831, 3840920 ####[facility] [address] [place] [address] Consenton 06-03-2021 Consent [id number] #1.00CD:127 Normal [facility] Registrationon 06-03-2021 Registration [id number] #1.00CD:127 Normal [facility] XR tibia fibula LT 2V*on XR tibia fibula LT 2V* [facility] [address] [address] XRay Report Signed Patient: Sandra Boss MR#: [id number] 43 : 1965 Acct:[id number] Age/Sex: 55 / M ADM Date: 05/21/21 [facility] Room: Type: REG CLI Attending Dr: Vickie Hart DPM, MS Ordering Provider: Vickie Hart DPM, MS Date of Service: 05/21/21 XR/XR ankle LT min 3V*: PAIN ([id number]) XR/XR tibia fibula LT 2V*: PAIN Copies to: Vickie Hart DPM, MS LEFT ANKLE - 3 views left tib-fib 2 views Reason for exam:Follow-up left ankle fusion COMPARISON: LEFT ANKLE SERIES 03/26/2021 Intramedullary steffi fixation is seen transversing the ankle joint without change in alignment or hardware complication. Associated resection of the distal fibula similar to the prior study. Fragmentation involving the distal tibia with articular collapse of the talus is grossly similar to the prior study. Soft tissue swelling is noted. No acute bony process is seen. Degenerative changes are noted involving the visualized knee joint. XR/XR ankle LT min 3V* IMPRESSION: NO HARDWARE COMPLICATION OR SIGNIFICANT CHANGE IS SEEN INVOLVING THE LEFT ANKLE. Impression dictated by: Suman Serrato Jr., MirellaOPark05/21/2021 11:43 AM Dictation Location: [place] [address] Transcribed By: [facility] 05/21/21 1143 Dictated By: Suman Serrato Jr, DO 05/21/21 1140 Signed By: 05/21/21 1143 Normal [facility] XR ankle LT min 3V*on 2020 XR ankle LT min 3V* [facility] [place] [address] XRay Report Signed Patient: Sandra Boss MR#: [id number] 43 : 1965 Acct:[id number] Age/Sex: 55 / M ADM Date: 03/26/21 Loc: [facility] Room: Type: REG CLI Attending Dr: Vickie Hart DPM MS Ordering Provider: Vickie Hart DPM, MS Date of Service: 03/26/21 XR/XR ankle LT min 3V*: PAIN ([id number]) XR/XR tibia fibula LT 2V*: PAIN Copies to: Vickie Hart DPM, MS 2 views LEFTtibia and fibula HISTORY: Continued failure of fixation of distal tibia and fibula. COMPARISON: 01/22/21 Posterior portion of the tibia and fibula were imaged. There is partial visualization of the tibial intramedullary steffi fixation. This is intact. The proximal tibia and fibula are intact. The distal femurs intact. No soft tissue abnormality seen. XR/XR tibia fibula LT 2V* IMPRESSION: Unremarkable findings. 3 views of the LEFT ankle obtained including the distal tibia and fibula Resection of the distal fibula identified. Intramedullary fixation/fusion of the distal tibia and talus is present. No hardware failure identified. Decreased bony mineralization of the distal tibia with possible involvement of the talus identified. Bony fusion changes are present. Surrounding callus formation seen. The medial malleolus fracture redemonstrated. This is minimally displaced. Soft tissue prominence identified. IMPRESSION: Findings suggesting fusion of the distal tibia and the talus. Resection distal fibula without complication. Decreased bony mineralization involving portion of the tibia. Impression dictated by: Keny Rubio M.D.03/26/2021 3:44 PM Dictation Location: [place] [address] Transcribed By: [facility] 03/26/21 1544 Dictated By: Keny Rubio DO 03/26/21 1538 Signed By: 03/26/21 1544 [facility] US arterial pvr rest [place] US arterial pvr rest [facility] Main [place] [address] [place] [address] Ultrasound Report Signed Patient: Sandra Boss MR#: [id number] 43 : 1965 Acct:[id number] Age/Sex: 55 / M ADM Date: 01/29/21 Loc: Room: Type: [facility] Attending Dr: Vickie Hart DPM MS Ordering Provider: Vickie Hart DPM, MS Date of Service: 01/29/21 US/US arterial pvr rest LE: S/P LT PILON FRACTURE, NONPALPABLE PULESES Copies to: Vickie Hart DPM, MS Bilateral lower extremity segmental arterial Doppler examination Indication for study: Peripheral vascular occlusive disease with leg fracture PROCEDURE: Right arm blood pressure is 120 and left arm blood pressure is 119 mmHg. Pressures throughout the right lower extremity are 150 and the high thigh, 145 at the calf, 149 at the ankle in the posterior tibial, and 124 mmHg at the ankle in the posterior tibial. This gives a highest right ankle-brachial index of 1.24. Pressures of the left lower extremity are 172 at the high thigh, 151 to calf, 133 at the ankle in the posterior tibial, and 148 mmHg at the ankle in the dorsalis pedis. This gives a highest left ankle-brachial index of 1.23. The right first toe pressure is 100 and the left first toe pressure is 91 mmHg. Waveforms by plethysmography are pulsatile bilaterally. US/US arterial pvr rest LE IMPRESSION: No hemodynamically significant peripheral vascular occlusive disease at rest in either lower extremity Impression dictated by: Keny Frey M.D.01/30/2021 3:33 PM Dictation Location: [place] [address] Tech: Judy Thorne Transcribed By: ARIC 01/30/21 1533 Dictated By: Keny Frey MD 01/30/211530 Signed By: 01/30/21 1533 Normal [facility] XR tibia fibula LT 2V*on XR tibia fibula LT 2V* [place] [address] XRay Report Signed Patient: Sandra Boss MR#: [id number] 43 : 1965 Acct:[id number] Age/Sex: 55 / M ADM Date: 01/22/21 Loc: [facility] Room: [facility] Attending Dr: Vickie Hart DPM, MS Ordering Provider: Vickie Hart DPM, MS Date of Service: 01/22/21 XR/XR ankle LT min 3V*: M25.572 ([id number]) XR/XR tibia fibula LT 2V*: PAIN Copies to: Vickie Hart DPM MS XR ankle LT min 3V*, XR tibia fibula LT 2V* 01/22/2021 2:51 PM SIGNS AND SYMPTOMS: Previous left ankle fracture with hardware failure/incomplete healing PROTOCOL: Frontal, lateral, and oblique radiographs of the left ankle with frontal and lateral radiograph of the left tibia and fibula COMPARISON: 12/26/2020 FINDINGS: Left tibia and fibula: There is evidence of previous hardware fixation of a fracture of the distal tibia and fibula. Remote hardware tracks are noted in the mid shaft of the tibia. There is no acute displaced fracture. Soft tissue swelling is present in the lower leg near the ankle. No dislocation or subluxation. Left ankle: There is an incompletely healed fracture of the lateral malleolus status post plate and screw fixation. There is loosening of the distal hardware screws. There is an incompletely healed fracture of the medial malleolus status post fixation. There is partial visualization of loss of the tibiotalar joint space. There is diffuse soft tissue swelling. XR/XR ankle LT min 3V* IMPRESSION: Left tibia and fibula: Soft tissue swelling is noted in the lower leg near the ankle. No acute displaced fracture. Left ankle: Incompletely healed fractures are noted in the medial and lateral malleolus with hardware loosening along the tip of the lateral malleolus. Diffuse soft tissue swelling is noted. Degenerative changes are noted in the tibiotalar junction which are presumably posttraumatic. Impression dictated by: Antonio Goodman M.D.01/22/2021 7:14 PM Dictation Location: [place] [address] Transcribed By: [facility] 01/22/211913 Dictated By: Antonio Goodman II, MD 01/22/211910 Signed By: 01/22/211913 [facility] Basic Metabolic Panlon 04-28 Anion gap molar conc 11 mmol/L Normal 9-18 [facility] Calcium mass conc 9.0 mg/dL Normal 8.6-10.0 [facility] Chloride molar conc 101 mmol/L Normal 97-105 [facility] CO2 molar conc 29 mmol/L Normal 22-30 [facility] Creatinine mass conc 1.05 mg/dL Normal 0.73-1.22 [facility] eGFR- Amer. >60 Normal [facility] GFR/1.73 sq M predicted among non-blacks MDRD vol rate/area (S/P/Bld) mL/min/{1.73_m2} Normal [facility] Comment on above: Result Comment: eGFR (Estimated GFR) Units of measure: mL/min/1.73 meters squared eGFR is derived from the reexpressed MDRD Study equation using the following parameters: serum creatinine, age, gender and race. The creatinine assay has been calibrated to be traceable to IDMS. An eGFR <60 mL/min/1.73m2 for >3 months is consistent with chronic kidney disease. Refer to KDOQI guidelines for clinical interpretation. In patients with unstable renal function, e.g. those with acute kidney injury, the eGFR may not accurately reflect actual GFR. Glucose mass conc 134 mg/dL High 74-99 [facility] Comment on above: Result Comment: The [place] Diabetes [employer] (ADA) provides guidance for cutoff values for fasting glucose and random glucose. The ADA defines fasting as no caloric intake for at least 8 hours. Fasting plasma glucose results between 100 to 125 mg/dL indicate increased risk for diabetes (prediabetes). Fasting plasma glucose results greater than or equal to 126 mg/dL meet the criteria for diagnosis of diabetes. In the absence of unequivocal hyperglycemia, results should be confirmed by repeat testing. In a patient with classic symptoms of hyperglycemia or hyperglycemic crisis, random plasma glucose results greater than or equal to 200 mg/dL meet the criteria for diagnosis of diabetes. Reference: Standards of Medical Care in Diabetes 2016, [place] [employer]. Diabetes Care. 2016.39(Suppl 1). Potassium molar conc 4.6 mmol/L Normal 3.7-5.1 [facility] Sodium molar conc 141 mmol/L Normal 136-144 [facility] Urea nitrogen mass conc 18 mg/dL Normal 9-24 [facility] Anion gap molar conc 9 mmol/L Normal 9-18 [facility] Calcium mass conc 9.1 mg/dL Normal 8.6-10.0 [facility] Chloride molar conc 102 mmol/L Normal 97-105 [facility] CO2 molar conc 28 mmol/L Normal 22-30 [facility] Creatinine mass conc 1.08 mg/dL Normal 0.73-1.22 [facility] eGFR- Amer. >60 [facility] GFR/1.73 sq M predicted among non-blacks MDRD vol rate/area (S/P/Bld) mL/min/{1.73_m2} [facility] Comment on above: Result Comment: eGFR (Estimated GFR) Units of measure: mL/min/1.73 meters squared eGFR is derived from the reexpressed MDRD Study equation using the following parameters: serum creatinine, age, gender and race. The creatinine assay has been calibrated to be traceable to IDMS. An eGFR <60 mL/min/1.73m2 for >3 months is consistent with chronic kidney disease. Refer to KDOQI guidelines for clinical interpretation. In patients with unstable renal function, e.g. those with acute kidney injury, the eGFR may not accurately reflect actual GFR. Glucose mass conc 148 mg/dL High 74-99 [facility] Comment on above: Result Comment: The [place] Diabetes Association (ADA) provides guidance for cutoff values for fasting glucose and random glucose. The ADA defines fasting as no caloric intake for at least 8 hours. Fasting plasma glucose results between 100 to 125 mg/dL indicate increased risk for diabetes (prediabetes). Fasting plasma glucose results greater than or equal to 126 mg/dL meet the criteria for diagnosis of diabetes. In the absence of unequivocal hyperglycemia, results should be confirmed by repeat testing. In a patient with classic symptoms of hyperglycemia or hyperglycemic crisis, random plasma glucose results greater than or equal to 200 mg/dL meet the criteria for diagnosis of diabetes. Reference: Standards of Medical Care in Diabetes 2016, [place] [employer]. Diabetes Care. 2016.39(Suppl 1). Potassium molar conc 5.5 mmol/L High 3.7-5.1 [facility] Sodium molar conc 139 mmol/L Normal 136-144 [facility] Urea nitrogen mass conc 19 mg/dL Normal 9-24 [facility] CBCon 04-28-2018 Absolute nRBC <0.01 Normal <0.01 [facility] E[facility]th[facility] distribution width Ratio (RBC) 12.2 % Normal 11.5-15.0 [facility] Hematocrit Volume Fraction (Bld) 37.8 % Low 39.0-51.0 [facility] Hemoglobin mass conc (Bld) 12.7 g/dL Low 13.0-17.0 [facility] MCH Entitic mass (RBC) 29.7 pG Normal 26.0-34.0 [facility] MCHC mass conc (RBC) 33.6 g/dL Normal 30.5-36.0 [facility] MCV Entitic volume (RBC) 88.3 fL Normal 80.0-100.0 [facility] Platelet mean volume Entitic volume (Bld) 11.3 fL Normal 9.0-12.7 [facility] Platelets #/vol (Bld) 214 10*3/uL Normal 150-[facility] RBC #/vol (Bld) 4.28 10*6/uL Normal 4.20-6.00 [facility] WBC #/vol (Bld) 18.24 10*3/uL High 3.70-11.00 [facility] NURSING PROGon 04-28-2018 Protein mass conc HNO ID: [id number] Author: Scarlet (Rn) ABDULAZIZ Morton Service: (none) Author Type: Registered Nurse Type: Nursing Progress Note Filed: 04/28/2018 9:08 PM Note Text: Nursing Progress Note Patient Name: Sandra Boss Patient Location: [place] [address] Daily Note: OK to be discharged to home. IV removed. Discharge instructions given. Questions answered. Discharged home by w/c with family. This note was completed by: Scarlet Morton RN [facility] Protein mass conc HNO ID: [id number] Author: Brittany DavisRn) ABDULAZIZ Cardoza Service: Nursing Author Type: Registered Nurse Type: Nursing Progress Note Filed: 04/28/2018 6:44 AM Note Text: Nursing Progress Note Patient Name: Sandra Boss Patient Location: [place] [address] Daily Note: Ambulated to bathroom with assistance. patient unable to void, c/o lower abdomen feeling tight . bladder scan showed > 999 cc urine. Patient straight cathed for 1025 cc clear yellow urine. This note was completed by: Brittany Cardoza RN [facility] HNO ID: [id number] Author: Manuel Angeles (Ticket Sales Supervisor) Service: (none) Author Type: (none) Type: Plan of Care Filed: 04/28/2018 3:11 PM Note Text: PHARMACY BEDSIDE DELIVERY SERVICE Patient Name: Sandra Boss The marked outpatient medications were Filled at: [place] and delivered to the patient's bedside to patient Medication List START taking these medications aspirin, enteric coated 325 mg EC tablet xx Commonly known as: ASPIRIN, ENTERIC COATED Take 1 tablet by mouth twice daily. (Blood thinner to prevent blood clots) docusate sodium 100 mg capsule--patient stated had this at home and did not want this medication. Commonly known as: COLACE Take 1 capsule by mouth twice daily. (Stool softener) ferrous sulfate 325 mg (65 mg iron) tablet xx Take 1 tablet by mouth twice daily with meals. (Iron supplement) ketorolac 10 mg tablet xx Commonly known as: TORADOL Take 1 tablet by mouth every 6 hours as needed for Pain for up to 4 days. (Anti-inflammatory) oxyCODONE IR 5 mg immediate release tablet xx Commonly known as: ROXICODONE Take 1-2 tablets by mouth every 4 hours as needed for Pain for up to 7 days. (Pain medication) CONTINUE taking these medications acetaminophen 500 mg tablet Commonly known as: TYLENOL Take 2 tablets by mouth every 8 hours. (Mild pain reliever) MULTIVITAMIN AND MINERAL FORMULA ORAL You might also be taking other medications not listed above. If you have questions about any of your other medications, talk to the person who prescribed them or your Primary Care Provider. STOP taking these medications ibuprofen 200 mg tablet Commonly known as: LARISA Angeles (Ticket Sales Supervisor) PAGER: [email or web address] April 28, 2018 3:10 PM [facility] PLAN OF CARE HNO ID: [id number] Author: Amparo Parra (Pharmacist) Service: Pharmacy Author Type: Pharmacist Type: Plan of Care Filed: 04/28/2018 2:05 PM Note Text: DISCHARGE MEDICATION REVIEW AND COUNSELING BY PHARMACY Patient Name: Sandra Boss Account #: Data Unavailable Admission Date: 04/27/2018 Date of Contact: April 28, 2018 Time of Contact: 1:41 PM LEARNERS Persons Present: Patient and Partner Primary Learner: Patient Medication list was reviewed by a Pharmacist for drug interactions or drug related problems:Yes The patient was counseled on the medication(s) listed below and was given the opportunity to ask questions regarding indication, dosage, side effects and drug interactions READINESS TO LEARN COGNITIVE ABILITY:Alert and oriented MOTIVATION TO LEARN:Interested FAMILY SUPPORT:High - Very involved in pt care INSTRUCTION PROVIDED TO:Patient and Spouse PATIENT LEARNS BEST BY:Individual Instruction Written Instruction - Hand-outs Verbal Instruction FACTORS AFFECTING LEARNING:None PHYSICAL LIMITATIONS AFFECTING LEARNING:None LEARNING RESPONSE PATIENT / FAMILY RESPONSE:Verbalizes understanding of: The signs and symptoms of a worsening condition that warrant a call to the physician. The correct actions to take to manage symptoms associated with his/her disease/illness. Accurate knowledge of prescribed medication prior to discharge. The correct action to take if medication dose is missed. The side effects associated with the medication that warrant a call to the physician. Krishan Gonzalez (Technician Plant And Maintenance) April 28, 2018 1:41 PM Preceptor Addendum: The above case has been reviewed and discussed with the pharmacy services director. I agree with the assessment/plan described by the student. Changes and additions to the details in the above note are indicated by italics and . Amparo Parra, Pharmacist Medication List START taking these medications aspirin, enteric coated 325 mg EC tablet Commonly known as: ASPIRIN, ENTERIC COATED Take 1 tablet by mouth twice daily. (Blood thinner to prevent blood clots) docusate sodium 100 mg capsule Commonly known as: COLACE Take 1 capsule by mouth twice daily. (Stool softener) ferrous sulfate 325 mg (65 mg iron) tablet Take 1 tablet by mouth twice daily with meals. (Iron supplement) ketorolac 10 mg tablet Commonly known as: TORADOL Take 1 tablet by mouth every 6 hours as needed for Pain for up to 4 days. (Anti-inflammatory) oxyCODONE IR 5 mg immediate release tablet Commonly known as: ROXICODONE Take 1-2 tablets by mouth every 4 hours as needed for Pain for up to 7 days. (Pain medication) CONTINUE taking these medications acetaminophen 500 mg tablet Commonly known as: TYLENOL Take 2 tablets by mouth every 8 hours. (Mild pain reliever) MULTIVITAMIN AND MINERAL FORMULA ORAL STOP taking these medications ibuprofen 200 mg tablet Commonly known as: MOTRIN Where to Get Your Medications Information about where to get these medications is not yet available Ask your nurse or doctor about these medications ? aspirin, enteric coated 325 mg EC tablet ? docusate sodium 100 mg capsule ? ferrous sulfate 325 mg (65 mg iron) tablet ? ketorolac 10 mg tablet ? oxyCODONE IR 5 mg immediate release tablet [facility] PLAN OF CARE HNO ID: [id number] Author: Manuel Angeles ([employer]) Service: (none) Author Type: (none) Type: Plan of Care Filed: 04/28/2018 1:03 PM Note Text: Pharmacy Discharge Medication Service: This patient has elected to receive their discharge prescriptions through the [facility] Bedside Prescription Delivery program. The prescriptions are currently being processed. A follow-up note will be entered once the prescriptions have been filled and delivered to the patient. Please contact me with any questions or updates to the patient's discharge medications. Manuel Angeles ([employer]) DCT Contact Info: [facility] PLAN OF CARE HNO ID: [id number] Author: Manuel Angeles ([employer]) Service: (none) Author Type: (none) Type: Plan of Care Filed: 04/28/2018 1:02 PM Note Text: CONVERTER SUPERVISOR BEDSIDE DELIVERY SURVEY 1. Patient to use [facility] Bedside Delivery - YES 2. If fax, patient would like us to fax prescriptions to Pharmacy of choice a. Pharmacy: b. Location: c. Phone: 3. Insurance card on file - YES 4. Credit card for payment - N/A [facility] PROGRESSon 04-28-2018 Protein mass conc HNO ID: [id number] Author: Hank De Souza Service: Hospital Medicine Author Type: Physician Type: Progress Notes Filed: 04/28/2018 10:58 AM Note Text: SERVICE DATE: 04/28/2018 SERVICE TIME: 10:58 AM HOSPITAL MEDICINE PROGRESS NOTE NIGHT AND WEEKEND COVERAGE: Days: [phone], please page me for patient issues. Nights: [phone], please page [facility] Hospitalist Night coverage pager [phone] HPI Patient doing well. Is able to ambulate with physical therapy. Concern this morning for potassium of 5.5. Patient does eat a lot of bananas including daily doesn't drink any orange juice. Also takes a daily vitamin. Patient had taken his vitamin this morning already before I saw him SUBJECTIVE Interval Events: Improved OBJECTIVE BP 92/56 Pulse 56 Temp (Src) 98.1 (Oral) Resp 16 Ht 6' 0 (1.83m) Wt 146 lb 2.6 oz (66.3kg) SpO2 98% BMI 19.82 kg/(m2). Physical Exam Performed: GENERAL: GENERAL APPEARANCE NCCC: well appearing, alert, in no acute distress and mildly uncomfortable due to pain HEART: HEART CCF: regular rate and rhythm, no murmer, gallop or rub, normal, S1, S2, no lifts, heaves, or thrills, PMI not displaced LUNGS: LUNGS CCF: clear to percussion and auscultation and no rales ABDOMEN: ABDOMEN: Soft, nontender, bowel sounds normal, no palpable organomegaly, no bruits. EXTREMITY: EXTREMITY EXAM: Normal exam of the extremities. No clubbing, cyanosis, or edema. Left hip dressed clean dry and intact Lines, Drains, and Airways Line Peripheral 04/27/18 1330 Left Hand 20 Gauge less than 1 day Medications: Reviewed Diagnostic tests reviewed: Most recent labs and imaging results. Most recent imaging ASSESSMENT AND PLAN Assessment AND Plan, all Hosp Problems Active Hospital Problems as of 04/28/2018 Noted - Resolved Hospital * (Principal)Osteoarth ritis of left hip 04/02/2018 - Present Hyperkalemia 04/28/2018 - Present Current Assessment AND Plan Assessment: Very mild PLAN: Hold multivitamin for now, no bananas today. Recheck of potassium shows it's within normal levels now. Patient would be okay for discharge home if ready from surgery standpoint Medication and Non-Pharmacologic VTE Prophylaxis/Anticoag ulants 04/27/18 1900 pneumatic compression stockings (ok,oh) 04/27/18 1900 graduated compression stockings (ok,oh) 04/27/18 1900 graduated compression stockings (ok,oh) 04/27/18 1900 activity - mobilize patient (ok,oh) 04/27/18 1900 activity - mobilize patient (ok,oh) 04/27/18 1900 activity - mobilize patient (ok,oh) 04/27/18 1315 pneumatic compression stockings (ok,oh) 04/27/18 1315 pneumatic compression stockings (fl,oh) VTE Prophylaxis: VTE prophylaxis appropriate Plan of care discussed with: Patient and RN at bedside SIGNATURE: Hank De Souza MD PATIENT NAME: Sandra Boss DATE: April 28, 2018 TIME: 10:58 AM PAGER/CONTACT #: [phone] [facility] Protein mass conc HNO ID: [id number] Author: Christel Joseph) Veronica Service: Orthopaedic Surgery Author Type: Physician Striker Off Type: Progress Notes Filed: 04/28/2018 7:03 AM Note Text: ORTHOPAEDIC POSTOP PROGRESS NOTE SERVICE DATE: 04/28/2018 SERVICE TIME: 7:00 AM Subjective Patient states that they are uncomfortable. Reports more pain on this side as compared to the other side. OxyIR helps, but doesn't last very long. Tolerating medications well without side effect. Denies CP, SOB, palpitations, dizziness. No PT yet, but planning for discharge home with [facility] today if clear with PT. Objective VITAL SIGNS: BP 96/54 Pulse 60 Temp 36.7 ?C (98.1 ?F) (Oral) Resp 18 Ht 182.9 cm (6') Wt 66.3 kg (146 lb 2.6 oz) SpO2 97% BMI 19.82 kg/m? INTAKE AND OUTPUT: Intake/Output Summary (Last 24 hours) at 04/28/18 0700 Last data filed at 04/28/18 0600 Gross per 24 hour Intake 3617 ml Output 1525 ml Net 2092 ml PHYSICAL EXAMINATION: Left Lower Extremity: Dorsalis pedis pulses palpable. Posterior tibial pulses palpable. Dorsi flexion 5/5. Plantar flexion 5/5. Sensory intact to light touch L1-S1. Dressing clean, dry and intact. Surgical site no drainage and Silverlon intact. Calf soft and non-tender; Ilana's negative. Good quad and glute set. Problem Review and Assessment: Cardiovascular and Vascular: Mild acute post operative blood loss anemia. Iron. Monitor. Endocrine and Metabolic: Hyperkalemia Infectious: Leukocytosis. No fever. Likely reactive. Incentive spirometer. Monitor. LABS: Recent Labs 04/28/18 0454 04/27/18 1750 HB 12.7* 13.5 HCT 37.8* 38.8* DATA: Diagnostic tests reviewed for today's visit: Most recent labs and imaging results. Assessment/Plan S/P Procedure(s) (LRB): ARTHROPLASTY HIP (Left) on 04/27/2018 POSTOP PLAN: Physical Therapy evaluation-Hip precautions DVT prophylaxis: Graduated compression stockings (GCS), Intermittent pneumatic compression device (IPCD) and Aspirin 325mg BID x 6 weeks Pain control-OxyIR, Tylenol and Toradol; Patient underwent major orthopedic surgery with joint replacement and will require more than allocated 30MED for acute pain management. Consult medical for hyperkalemia Case Management for discharge planning-Home with [facility] today if clear with PT ACTIVE PROBLEM LIST Osteoarthritis of Right Hip Pain in Right Hip Greater Trochanteric Bursitis of Right Hip Primary Osteoarthritis of Right Hip Tear of Right Gluteus Minimus Tendon Osteoarthritis of Left Hip Current Smoker Medication and Non-Pharmacologic VTE Prophylaxis/Anticoag ulants 04/27/18 1900 pneumatic compression stockings (fl,oh) 04/27/18 1900 graduated compression stockings (fl,oh) 04/27/18 1900 graduated compression stockings (fl,oh) 04/27/18 1900 activity - mobilize patient (fl,oh) 04/27/18 1900 activity - mobilize patient (fl,oh) 04/27/18 1900 activity - mobilize patient (fl,oh) 04/27/18 1315 pneumatic compression stockings (fl,oh) 04/27/18 1315 pneumatic compression stockings (fl,oh) VTE Prophylaxis: VTE prophylaxis appropriate POST OPERATIVE COMPLICATIONS: Complicated by: uneventful/none SIGNATURE: Christel Martin PA-C PATIENT NAME: Sandra Boss DATE: April 28, 2018 TIME: 7:00 AM PAGER/CONTACT #: [phone] [facility] PT EDon 04-28-2018 PT ED HNO ID: [id number] Author: Amparo Parra (Pharmacist) Service: Pharmacy Author Type: Pharmacist Type: Patient Education Filed: 04/28/2018 2:05 PM Note Text: PHARMACY ANTICOAGULATION EDUCATION Patient Name: Sandra Boss Account #: Data Unavailable Admission Date: 04/27/2018 12:05 PM Date of Contact: April 28, 2018 Time of Contact: 1:39 PM Patient new to Aspirin? Yes Indication for anticoagulation: DVT Prophylaxis Patient received full anticoagulation education. Initial patient education included: * Reason for taking anticoagulation * How anticoagulant works * When to take medication and what to do if a dose is missed * Drug interactions (Rx, OTC, herbal) and importance of notifying the doctor with any changes. * Do not take or discontinue any medication or over the counter medication except on the advice of the physician or pharmacist. * Potential duration of therapy * Signs/symptoms of bleeding and what to do if they occur because anticoagulation increases the risk of bleeding * Precautionary measures to decrease trauma/bleeding * Signs/symptoms of thrombosis and what to do if they occur * Carrying identification * Importance of notifying healthcare provider when hospitalizations occur and when another healthcare provider has asked them to stop/hold anticoagulation medication before any procedure * Importance of notifying all healthcare providers they are taking an anticoagulant * Use of control measures if applicable * The importance of taking anticoagulation medication as instructed and the potential ramifications of non-compliance were explained to the patient. The patient was provided ?Lenora-Pals? education which includes the following : compliance Issues, follow-up with physician, follow- up monitoring, potential adverse drug reactions and interactions. READINESS TO LEARN COGNITIVE ABILITY: Alert and oriented MOTIVATION TO LEARN: Interested FAMILY SUPPORT: High - Very involved in pt care INSTRUCTION PROVIDED TO: Patient and Spouse PATIENT LEARNS BEST BY: Individual Instruction Written Instruction - Hand-outs Verbal Instruction FACTORS AFFECTING LEARNING: None PHYSICAL LIMITATIONS AFFECTING LEARNING: None LEARNING RESPONSE DIAGNOSIS: SEE INDICATION(S) ABOVE PATIENT/FAMILY RESPONSE: Verbalizes understanding of: The signs and symptoms of a worsening condition that warrant a call to the physician. The correct actions to take to manage symptoms associated with his/her disease/illness. Accurate knowledge of prescribed medication prior to discharge. The correct action to take if medication dose is missed. The side effects associated with the medication that warrant a call to the physician. METHOD OF INSTRUCTION: Teach Back Side effects, dose, indication, signs of bleeding, and what to do if a dose is missed Individual instruction Written instruction - handouts Verbal instruction SUPPLEMENTAL MATERIAL PROVIDED: Lenora-Pals anticoagulation education materials provided EVIDENCE OF LEARNING Outcomes met: Describes/able to restate information and Indicates understanding of topic Outcomes not met: N/A Krishan Gonzalez (Technician [employer]) Preceptor Addendum: The above case has been reviewed and discussed with the pharmacy services director. I agree with the assessment/plan described by the student. Changes and additions to the details in the above note are indicated by italics and . Amparo Parra, Pharmacist [facility] THERAPY NTon 04-28-2018 THERAPY NT HNO ID: [id number] Author: Judy (Ot/L) Derick Service: Occupational Therapy Author Type: Occupational Therapist Type: Therapy (PT/OT/Speech/Resp) Filed: 04/28/2018 4:11 PM Note Text: Occupational Therapy Evaluation SERVICE DATE: 04/28/2018 SERVICE TIME: 1034 to 1059 ROOM: [place] [address] Recommended Discharge Disposition: Home Recommended Discharge Equipment: Long Handled Sponge;Sock Aide OT Recommendations to Nursing: To Bathroom for ADL?s /and or Toileting;OOB for meals;With assist of 1 person Equipment: Wheeled Walker OT 6 Clicks Score: 24 Precautions/Activity Restrictions: Total Hip Replacement;Weight Bearing Restrictions;Hip Precautions - Posterior Dislocation (s/p L SUKUMAR (Froy)) Extremity With Weight Bearing Restricted: Left Lower Extremity Left Lower Extremity Weight Bearing Status: WBAT Total Hip Replacement Precautions: Posterior ASSESSMENT: Pt. Presents with impaired balance, strength, activity tolerance, ADLs and mobility/transfers. Pt. Moving well during session. Pt. Did not require any physical assist with self care tasks (with use of LB AE) or functional transfers/mobility. Pt. Will have support upon DC (pt.'s aishwarya present, appears supportive). Pt. Denies any homegoing concerns at this time. Instructed pt to ambulate once every hour when awake. Pt. Is safe and cleared from OT standpoint to go home, when cleared by medical. Patient Disposition at Start of Session: OOB in Chair;Call Stewart in Reach;Family Present Patient Disposition at End of Session: OOB in Chair;Call Stewart in Reach;Family Present Tolerated Full Session Occupational Therapy Problem List: Impaired Self Care;Decreased Activity Tolerance;Functional Mobility Impairment;Balance Impaired;Sensory Deficit Patient /Caregiver Goals: Go Home Goals for Plan of Care: PLAN: Treatment Frequency (times per week): Discontinue Therapy Services Reasons Therapy Services Discontinued: Discharged from facility Plan of Care developed with: Patient;Caregiver (pt.'s aishwarya present) TREATMENT INTERVENTIONS: Therapy Diagnosis: Decreased activities of daily living (ADL);Muscle Weakness (generalized);Reduce d mobility-other;Gener al symptoms and signs-other Interventions Provided: Evaluation;Self Penitentiary Management (74125) $ Evaluation-Low (52438) Billed Units: 1 unit Self Penitentiary Management (08897) Treatment Minutes: 10 1 unit Skilled Intervention(s): Instructed in post-op instructions during ADLs Provided instruction, cuing and facilitation for upper body dressing including safety and to don/doff UB clothing while sitting. Provided instruction, cuing and facilitation for lower body dressing including sequencing (with cues for technique of donning clothing onto the surgical lower extremity first and to doff last.). Educated pt. In importance of threading LB clothing while sitting down and then standing to pull up LB clothing with solid surface directly behind them (a chair or EOB for example). Pt. Verbalized understanding. Educated pt. In hip precautions, relating to: -functional transfers (use of leg cork tipper to assist surgical leg in/out of bed, pushing up from stable surfaces, reaching back for stable surface when sitting, and to sleep on pt.'s back) -dressing (threading surgical leg first when donning LB clothing, using AE as needed and to not cross legs when getting dressed) -self care (using recommended method when transferring into and out of tub/shower, benefit of tub or shower seat/bench w/ leg cork tipper, importance of grab bars and not bathing alone) -toileting (sitting on elevated toilet seat, and supporting self during transfers w/ stable surface close by) -proper technique for transferring into and out of a car (sliding seat all the way back and reclining seat all the way back to increase space in order to clear the dashboard along w/ proper adherence to surgical precautions) -home management (sliding items across countertop instead of carrying items, standing directly in front of the object while holding onto stable surface when reaching for items, not picking up items from low surfaces, not carrying items while using walker, use of a walker bag and not leaving throw rugs on the floor). Explanation, demonstration and handout provided. Pt. Verbalized understanding. Educated pt. On hip precautions, including WB status; explanation and demonstration. Pt. Verbalized understanding. Educated pt. In LB AE including sock aide, staff air tactical officer, long handled shoe horn and long handled bath sponge. Explanation, demonstration, vendor information provided. Pt. Verbalized understanding. Education provided for role of Occupational Therapy including POC and discharge planning. Education in importance of functional mobility and transfers and participation in ADL activities for increased independence for safe discharge. Pt. Verbalized understanding. ?? Education provided to call for assistance when needing to get up with call stewart and phone within patients reach. Pt. Verbalized understanding. Total Timed Code Treatment Minutes: 10 Total Treatment Time (minutes): 25 FUNCTIONAL G CODE: OT 6 Clicks Score: 24 (04/28/18 1034) Based on clinical assessment and the score on the 6 Clicks Functional Assessment Tool, the G code and corresponding severity modifiers are documented above. SUBJECTIVE: Current Hospital Course: Chart reviewed; S/P Procedure(s) (LRB): ARTHROPLASTY HIP (Left) on 04/27/2018 Reason for Occupational Therapy Consult: s/p L SUKUMAR Relevant Past Medical History: R SUKUMAR 2016, R glut repair 06/2017 Patient Report: I'm going home today. Pt pleasant, agreeable to participate in session. 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: Cognition/Communicat ion Deficits Responsiveness: Alert;Awake Follows Commands: 3-step Commands CURRENT FUNCTIONAL STATUS: Current Activities of Daily Living Assist Level Feeding Set Up Grooming Stand By Assistance Bathing Upper Body Stand By Assistance Bathing Lower Body Stand By Assistance (with LB AE) Dressing Upper Body Stand By Assistance Dressing Lower Body Stand By Assistance (with LB AE) Toileting Stand By Assistance Instrumental Activities of Daily Living Assist Level Meal/Beverage Prep Light Cleaning Laundry Medication Management with Strategies Functional Mobility Assist Level Rolling Supine to Sit Sit to Supine Scooting Sit to Stand Stand By Assistance Stand to Sit Stand By Assistance Bed to Chair Toilet/Commode Functional Mobility Stand By Assistance Wheeled Walker Please see discipline specific clinical documentation flowsheet for complete details for this therapy evaluation/treatment . SIGNATURE: Judy Sepulveda OT/L PATIENT NAME: Sandra Boss DATE: April 28, 2018 TIME: 4:09 PM [facility] THERAPY NT HNO ID: [id number] Author: Kate Jordan (Pt) Venkat Service: Physical Therapy Author Type: Physical Therapist Type: Therapy (PT/OT/Speech/Resp) Filed: 04/28/2018 2:59 PM Note Text: Physical Therapy Treatment SERVICE DATE: 04/28/2018 SERVICE TIME: 1315 to 1340 ROOM: [place] [address] Recommended Discharge Disposition: Home PT Recommended Discharge Equipment: Wheeled Walker PT Recommendations to Nursing: Ambulate with device;To bathroom;In halls;OOB for Meals;With assist of 1 person Device: Wheeled Walker PT 6 Clicks Score: 24 Precautions/Activity Restrictions: Total Hip Replacement;Weight Bearing Restrictions;Hip Precautions - Posterior Dislocation (s/p L SUKUMAR (Froy)) Extremity With Weight Bearing Restricted: Left Lower Extremity Left Lower Extremity Weight Bearing Status: WBAT Total Hip Replacement Precautions: Posterior ASSESSMENT : Patient presents with decreased ROM, strength, and mobility s/p L SUKUMAR. . Pt was instructed on HEP including supine and seated exercises to be completed on their own 2x/day as tolerated. Instructed pt on bed mobility from the R side using a sheet or their non-operative LE to A themselves and patient was able to complete with SBA using the sheet during his session earlier this morning. Pt was able to ambulate with reciprocal gait using a RW with S. Pt was also instructed on steps using 1 HR and quad cane and was able to demonstrate with SBA. Pt was encouraged to get up and ambulate every hour on their own once at home. Pt is cleared for DC home from PT standpoint with HOME PT once cleared by medical. Patient Disposition at Start of Session: OOB in Chair Patient Disposition at End of Session: OOB in Chair Tolerated Full Session Physical Therapy Problem List: Functional Mobility Impairment;Decreased Strength;Decreased Range Of Motion;Pain Patient /Caregiver Goals: Go Home Goals for Plan of Care: Able to perform HEP with: Modified Independent (B LE 3x10) Transfer supine to/from sit with: Modified Independent Transfer sit to/from stand with: Modified Independent Ambulate with: Modified Independent Distance: 150-200 Device: Wheeled Walker Ambulate up and down steps with: Stand By Assistance Number of steps: 3 Device: Rail;Cane ROM: 0-90 L hip Progress Toward Goals: Progressing as expected Rehab Potential: Good PLAN: Treatment Frequency (times per week): 7 Current admission Treatment Interventions: Education;Strengthen ing;Functional Mobility Training Plan of Care developed with: Patient TREATMENT INTERVENTIONS: Therapy Diagnosis: Reduced mobility-other;Muscl e Weakness (generalized);Abnorm alities of gait and mobility-other Interventions Provided: Gait Training (20563);Therapeutic Exercise (47894) Therapeutic Exercise (81329) Treatment Minutes: 8 1 unit Skilled Intervention(s): Instruction in therapeutic exercise Verbal and tactile cuing provided Seated LAQ and HS 2x10 B LE, Pt using sheet to A with full extension L knee during LAQ Gait Training (33674) Treatment Minutes: 15 1 unit Skilled Intervention(s): Instruction in sit to stand technique with proper hand placement and body positioning at edge of bed/chair, Instruction in stand to sit technique with LE's touching chair/bed and reaching back for surface, Instruction in sequencing, gait pattern, Instruction in correction of gait deviations, Instruction in stair negotiation and Instruction in use of equipment, cues for sequence and pattern Total Timed Code Treatment Minutes: 23 Total Treatment Time (minutes): 23 FUNCTIONAL G CODE: PT 6 Clicks Score: 24 (04/28/18 1315) Based on clinical assessment and the score on the 6 Clicks Functional Assessment Tool, the G code and corresponding severity modifiers are documented above. SUBJECTIVE: Current Hospital Course: Chart reviewed and no significant medical updates relevant to therapy were noted Reason for Physical Therapy Consult : S/P L SUKUMAR Relevant Past Medical History: R SUKUMAR 2016, R glut repair 06/2017 Patient Report: Pt in the chair I am ready to go home Home Environment Patient Lives With: Significant Other (fiancee) Assistance Available: time study technologist Entry To Home: Stairs;With Rail Number Of Stairs Into Home: 3 Number Of Stairs To Bed/Bath: 1st floor bed and bath Tub/Shower Type: WIS with shower chair Laundry: loren neff completes Equipment Owned: (quad) Prior Functional Level: Within Functional Limits Prior Functional Level 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, + 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, 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: CURRENT FUNCTIONAL STATUS: Current Functional Mobility Assist Level Additional Information Rolling Supine to Sit Stand By Assistance Sit to Supine Scooting Stand By Assistance Sit to Stand Supervision Stand to Sit Supervision Bed to Chair Toilet/Commode Gait Supervision Gait Device: Wheeled Walker Gait Distance (feet): 80x1, 175x1 Stairs Stand By Assistance Stairs Device: Rail (quad cane) Number of Stairs: 4 Curb Step Car Transfer Gait Deviations Left Lower Extremity: Weight bearing decreased;Stance time decreased;Heel strike during initial stance decreased;Push-off during terminal stance decreased -HLM: 7: Walk 25 feet or more Please see discipline specific clinical documentation flowsheet for complete details for this therapy evaluation/treatment . SIGNATURE: Kate Robledo, PT PATIENT NAME: Sandra Boss DATE: April 28, 2018 TIME: 2:54 PM [facility] THERAPY NT HNO ID: [id number] Author: Kate Jordan (Pt) Venkat Service: Physical Therapy Author Type: Physical Therapist Type: Therapy (PT/OT/Speech/Resp) Filed: 04/28/2018 12:37 PM Note Text: Physical Therapy Evaluation SERVICE DATE: 04/28/2018 SERVICE TIME: 734 ( eval initiated) to 929 ( EVAL, GAIT, THER EX) ROOM: [place] [address] Recommended Discharge Disposition: Home PT Recommended Discharge Equipment: Wheeled Walker PT Recommendations to Nursing: Ambulate with device;To bathroom;In halls;OOB for Meals;With assist of 1 person Device: Wheeled Walker PT 6 Clicks Score: 23 Precautions/Activity Restrictions: Total Hip Replacement;Weight Bearing Restrictions;Hip Precautions - Posterior Dislocation (s/p L SUKUMAR (Froy)) Extremity With Weight Bearing Restricted: Left Lower Extremity Left Lower Extremity Weight Bearing Status: WBAT Total Hip Replacement Precautions: Posterior ASSESSMENT : Patient presents with decreased ROM, strength, and mobility s/p L SUKUMAR. Pt was issued a total joint packet and instructed on anti-embolics and supine exercises using a sheet to A his L LE. Instructed pt from getting up from a flat bed to the R using a sheet to A his L LE and pt was able to complete on his own, but with increased pain. Instructed pt on step-to sequence with RW and pt able to progress to reciprocal gait. Pt plans to return home with home PT. Plan to progress ambulation and practice steps as pt is able to tolerate. Pt is hoping to return home today. Patient Disposition at Start of Session: Supine in Bed Patient Disposition at End of Session: OOB in Chair Tolerated Full Session Physical Therapy Problem List: Functional Mobility Impairment;Decreased Strength;Decreased Range Of Motion;Pain Patient /Caregiver Goals: Go Home Goals for Plan of Care: Able to perform HEP with: Modified Independent (B LE 3x10) Transfer supine to/from sit with: Modified Independent Transfer sit to/from stand with: Modified Independent Ambulate with: Modified Independent Distance: 150-200 Device: Wheeled Walker Ambulate up and down steps with: Stand By Assistance Number of steps: 3 Device: Rail;Cane ROM: 0-90 L hip Rehab Potential: Good PLAN: Treatment Frequency (times per week): 7 Current admission Treatment Interventions: Education;Strengthen ing;Functional Mobility Training Plan of Care developed with: Patient TREATMENT INTERVENTIONS: Therapy Diagnosis: Reduced mobility-other;Muscl e Weakness (generalized);Abnorm alities of gait and mobility-other Interventions Provided: Evaluation;Therapeut ic Exercise (70639);Therapeutic Activity (04106);Gait Training (92929) $ Evaluation-Low (42695) Billed Units: 1 unit Therapeutic Exercise (47572) Treatment Minutes: 10 1 unit Skilled Intervention(s): Instruction in therapeutic exercise Verbal and tactile cuing provided Pt performed in supine position: AP, QS, GS x 10 B LE, pt instructed to do every hour while awake on their own. HS, hip ABD, SAQ x 10 B LE. Pt instructed on using a sheet to A with L LE. Therapeutic Activity (30468) Treatment Minutes: 5 Skilled Intervention(s): Instructed patient in supine to sit pushing with upper extremities to sit up Gait Training (77351) Treatment Minutes: 10 1 unit Skilled Intervention(s): Instruction in sit to stand technique with proper hand placement and body positioning at edge of bed/chair, Instruction in stand to sit technique with LE's touching chair/bed and reaching back for surface, Instruction in sequencing, gait pattern, Instruction in correction of gait deviations, Instruction in stair negotiation and Instruction in use of equipment, cues for sequence and pattern Total Timed Code Treatment Minutes: 25 Total Treatment Time (minutes): 40 FUNCTIONAL G CODE: PT 6 Clicks Score: 23 (04/28/18 3838) Based on clinical assessment and the score on the 6 Clicks Functional Assessment Tool, the G code and corresponding severity modifiers are documented above. SUBJECTIVE: Current Hospital Course: Chart reviewed; Pt with increased L hip pain and elected to have L SUKUMAR 04/27 (Froy) Reason for Physical Therapy Consult : S/P L SUKUMAR Relevant Past Medical History: R SUKUMAR 2016, R glut repair 06/2017 Patient Report: Pt in bed This L hip and groin is so sore, I dont think my R one was this bad Home Environment Patient Lives With: Significant Other (fiancee) Assistance Available: time study technologist Entry To Home: Stairs;With Rail Number Of Stairs Into Home: 3 Number Of Stairs To Bed/Bath: 1st floor bed and bath Tub/Shower Type: WIS with shower chair Laundry: [email or web address] neff completes Equipment Owned: (quad) Prior Functional Level: Within Functional Limits Prior Functional Level 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, + 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, 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: CURRENT FUNCTIONAL STATUS: Current Functional Mobility Assist Level Additional Information Rolling Supine to Sit Stand By Assistance Sit to Supine Scooting Stand By Assistance Sit to Stand Stand By Assistance Stand to Sit Stand By Assistance Bed to Chair Toilet/Commode Gait Stand By Assistance Gait Device: Wheeled Walker Gait Distance (feet): 120 Stairs Curb Step Car Transfer Gait Deviations Left Lower Extremity: Weight bearing decreased;Stance time decreased;Heel strike during initial stance decreased;Push-off during terminal stance decreased Range of Motion: WFL Except (L hip AA flexion ~60 deg) Strength: WFL Except (L hip <3/5) JH-HLM: 7: Walk 25 feet or more Please see discipline specific clinical documentation flowsheet for complete details for this therapy evaluation/treatment . SIGNATURE: Kate Robledo, PT PATIENT NAME: Sandra Boss DATE: April 28, 2018 TIME: 12:34 PM [facility] ANES PREOPon 04-27-2018 ANES PREOP HNO ID: [id number] Author: Cassandra Slater Service: Anesthesiology Author Type: Physician Type: Anesthesia PreOp Filed: 04/27/2018 1:46 PM Note Text: ANESTHESIOLOGY DAY OF SURGERY NOTE SERVICE DATE: 04/27/2018 SERVICE TIME: 1345 : 1965 Procedure(s) (LRB): ARTHROPLASTY HIP (Left) Surgeon(s): Suman Nguyen Jr. Estimated body mass index is 20.48 kg/m? as calculated from the following: Height as of 04/20/18: 182.9 cm (6'). Weight as of this encounter: 68.5 kg (151 lb). Most recent hematocrit and potassium results: Hematocrit 45.1 04/20/2018 Potassium 4.8 04/20/2018 ANES DOS/PREOP NOTE: Vitals: 04/27/18 1319 BP: 106/81 Pulse: 79 Resp: 16 Temp: 36.7 ?C (98.1 ?F) TempSrc: Temporal Artery SpO2: 100% Weight: 68.5 kg (151 lb) ACTIVE PROBLEM LIST Osteoarthritis of Right Hip Pain in Right Hip Greater Trochanteric Bursitis of Right Hip Primary Osteoarthritis of Right Hip Tear of Right Gluteus Minimus Tendon Osteoarthritis of Left Hip Current Smoker PAST MEDICAL HISTORY Diagnosis Date - OA (osteoarthritis) of hip 2016 - Tobacco use 1 ppd x 15 years, patient down to 1-2 cigarettes a day now PAST SURGICAL HISTORY Procedure Laterality Date - APPENDECTOMY - PAST SURGICAL HISTORY OF Right 06/2017 Right gluteus muscle repair - SHOULDER ARTHROSCOPY/SURG Right 1999's - TOTAL HIP REPLACEMENT Right 03/18/2017 Hip replacement, total FAMILY HISTORY Problem Relation Age of Onset - None Mother - Dementia Father Social History: Social History Substance Use Topics - Smoking status: Current Every Day Smoker Packs/day: 1.00 Years: 15.00 Types: Cigarettes Start date: 06/30/2002 - Smokeless tobacco: Never Used Comment: Currently down to 1-2 a day (04/20/18) - Alcohol use No No current facility-administere d medications on file prior to encounter. Current Outpatient Prescriptions on File Prior to Encounter: acetaminophen (TYLENOL) 500 mg tablet Take 2 tablets by mouth every 8 hours. (Mild pain reliever) MULTIVITAMIN WITH MINERALS (MULTIVITAMIN AND MINERAL FORMULA ORAL) Take 1 tablet by mouth once daily. Current Facility-Administere d Medications: ceFAZolin iv piggyback 2 g in D5W (iso-osmotic) 100 mL (ANCEF) 2 g INTRAVENOUS Pre-Op Once Christel Martin (Pa) lactated ringers infusion 5-30 mL/hr INTRAVENOUS CONTINUOUS Christel (Tree Martin Last Rate: 30 mL/hr at 04/27/18 1336 30 mL/hr at 04/27/18 1336 scopolamine 1 mg over 3 days 1 Patch (TRANSDERM-SCOP) 1 Patch TRANSDERMAL q 72 HR Christel (Pa) Henriqueyesni 1 Patch at 04/27/18 1326 And scopolamine - REMOVE PATCH OTHER q 72 HR Christel (Pa) Henriqueyesni And scopolamine - VERIFY patch OTHER q 8 H Christel (Pa) Henriqueyesni Allergies: ALLERGIES No Known Allergies DOS EXAM: Adequate NPO Status: Yes Anesthetic Risks, Benefits, Alternatives, Personnel and Consent Discussed: Yes Patient agrees to proceed: Yes Previous Anesthesia: No history of adverse event Airway Assessment: MP 2; Neck ROM: Full ROM without neurologic symptoms; Airway Evaluation: No significant abnormalities Dentition: Teeth intact Additional Physical Exam: Lungs: Patient health status unchanged since recent history and physical. See history and physical for exam findings. Cardiac: Patient health status unchanged since recent history and physical. See history and physical for exam findings. Additional Pertinent Findings: N/A Blood Products: Will accept Blood/Blood Products Anesthetic Plan: Regional with general as back up Anesthetic Monitoring: Standard ASA Monitors Pain Management Plan: Parenteral or Oral ASA Class: 2 Other Medical Problems: None Chronic Beta Jose medication administered within 24 hours: N/A I have interviewed and examined the patient. I have reviewed the medical record and/or the pre-anesthesia evaluation, pertinent labs, and test results. Significant changes in the patient's condition since the History and Physical, not otherwise documented in primary service progress notes: No This contains updated information obtained within 48 hours of Surgery/Procedure. SIGNATURE: Cassandra Slater MD PATIENT NAME: Sandra Boss DATE: April 27, 2018 TIME: 1:45 PM CSN: [id number] Normal [facility] Basic Metabolic Panlon 04-27 Anion gap molar conc 10 mmol/L Normal 9-18 [facility] Calcium mass conc 9.2 mg/dL Normal 8.6-10.0 [facility] spital Chloride molar conc 101 mmol/L Normal 97-105 [facility] CO2 molar conc 27 mmol/L Normal 22-30 [facility] Creatinine mass conc 0.96 mg/dL Normal 0.73-1.22 [facility] eGFR- Amer. >60 Normal [facility] ospital GFR/1.73 sq M predicted among non-blacks MDRD vol rate/area (S/P/Bld) mL/min/{1.73_m2} Normal [facility] Comment on above: Result Comment: eGFR (Estimated GFR) Units of measure: mL/min/1.73 meters squared eGFR is derived from the reexpressed MDRD Study equation using the following parameters: serum creatinine, age, gender and race. The creatinine assay has been calibrated to be traceable to IDMS. An eGFR <60 mL/min/1.73m2 for >3 months is consistent with chronic kidney disease. Refer to KDOQI guidelines for clinical interpretation. In patients with unstable renal function, e.g. those with acute kidney injury, the eGFR may not accurately reflect actual GFR. Glucose mass conc 126 mg/dL High 74-99 [facility] milla Comment on above: Result Comment: The [place] Diabetes Association (ADA) provides guidance for cutoff values for fasting glucose and random glucose. The ADA defines fasting as no caloric intake for at least 8 hours. Fasting plasma glucose results between 100 to 125 mg/dL indicate increased risk for diabetes (prediabetes). Fasting plasma glucose results greater than or equal to 126 mg/dL meet the criteria for diagnosis of diabetes. In the absence of unequivocal hyperglycemia, results should be confirmed by repeat testing. In a patient with classic symptoms of hyperglycemia or hyperglycemic crisis, random plasma glucose results greater than or equal to 200 mg/dL meet the criteria for diagnosis of diabetes. Reference: Standards of Medical Care in Diabetes 2016, [place] [employer]. Diabetes Care. 2016.39(Suppl 1). Potassium molar conc 5.2 mmol/L High 3.7-5.1 [facility] Sodium molar conc 138 mmol/L Normal 136-144 [facility] milla Urea nitrogen mass conc 12 mg/dL Normal 9-24 [facility] CBCon 04-27-2018 Absolute nRBC <0.01 Normal <0.01 [facility] Erythrocyte distribution width Ratio (RBC) 12.2 % Normal 11.5-15.0 [facility] Hematocrit Volume Fraction (Bld) 38.8 % Low 39.0-51.0 [facility] Hemoglobin mass conc (Bld) 13.5 g/dL Normal 13.0-17.0 [facility] MCH Entitic mass (RBC) 30.3 pG Normal 26.0-34.0 [facility] MCHC mass conc (RBC) 34.8 g/dL Normal 30.5-36.0 [facility] MCV Entitic volume (RBC) 87.2 fL Normal 80.0-100.0 [facility] Platelet mean volume Entitic volume (Bld) 10.7 fL Normal 9.0-12.7 [facility] Platelets #/vol (Bld) 192 10*3/uL Normal 150-[facility] RBC #/vol (Bld) 4.45 10*6/uL Normal 4.20-6.00 [facility] WBC #/vol (Bld) 13.46 10*3/uL High 3.70-11.00 [facility] HISTORY PHYSICALon 9 HISTORY PHYSICAL HNO ID: [id number] Author: Christel Martin (Pa) Service: Orthopaedic Surgery Author Type: Physician Striker Off Type: HANDP Filed: 04/27/2018 1:20 PM Note Text: UPDATED HISTORY AND PHYSICAL EXAMINATION SERVICE DATE: 04/27/2018 SERVICE TIME: 1:20 PM PHYSICAL EXAM MUST BE COMPLETED ON ADMISSION The History and Physical (completed in the past 30 days) has been reviewed and the patient has been examined. The contents accurately reflect the patient's condition with the following additions or revisions since the HANDP was completed. Examination indicates no changes. This HANDP can be found in the Electronic Medical Record dated 04-20-18. Plan: Antibiotics: Ancef Decolonization completed with CHG wipes Will proceed with left SUKUMAR as planned ACTIVE PROBLEM LIST Osteoarthritis of Right Hip Pain in Right Hip Greater Trochanteric Bursitis of Right Hip Primary Osteoarthritis of Right Hip Tear of Right Gluteus Minimus Tendon Osteoarthritis of Left Hip Current Smoker SIGNATURE: Christel Martin PA-C PATIENT NAME: Sandra Boss DATE: April 27, 2018 TIME: 1:20 PM PAGER: Normal [facility] NURSING PROGon 04-27-2018 Protein mass conc HNO ID: [id number] Author: Mervat Enamorado (Rn) ABDULAZIZ Morton Service: (none) Author Type: Registered Nurse Type: Nursing Progress Note Filed: 04/27/2018 8:58 PM Note Text: Nursing Progress Note Patient Name: Sandra Boss [facility] Note:To room 413 from PACU. Pt drowsy, awakens easily, oriented x3. Respirations even and unlabored at rest. Denies chest pain or discomfort. Lung sounds clear, diminished in bases bilaterally. Occasional moist non productive cough. Assisted with using incentive spirometer. IV fluids infusing at 100cchr. Abdomen soft, few faint bowel sounds x4 quadrants. Left hip Silverlon dressing and left leg denzel wrap dry and intact. Ice to left hip. Abductor pillow in place. Left DP pulse palpable 2+, right DP pulse 1+. Unable to move bilateral lower legs and feet, decreased sensation to both. Repositioned. Oriented to room and plan of care. This note was completed by: Mervat Morton RN [facility] OPERATIVE NOon 04-27-2018 OPERATIVE NO HNO ID: [id number] Author: Suman Nguyen Jr. Service: Orthopaedic Surgery Author Type: Physician Type: Operative Report Filed: 04/27/2018 5:42 PM Note Text: [facility] OPERATIVE REPORT PATIENT NAME: Sandra Boss AGE: [age] year old LOG ID: [id number] Surgery Date: 04/27/2018 SURGEON: Suman Nguyen M.D. BOXING INSPECTOR: Christel Sprague PA-C, her assistance consisted of assistance with retraction, positioning and closing of the wound No resident physicians were available to participate in the case. PROCEDURE: Left TOTAL HIP ARTHROPLASTY-DIRECT LATERAL Procedure(s) (LRB): ARTHROPLASTY HIP (Left) Anesthesia: Spinal Preop Diagnosis: Pre-Op Diagnosis Codes: * Osteoarthritis of left hip [M16.12] Postop Diagnosis: Same as Pre-Op Diagnosis Codes: * Osteoarthritis of left hip [M16.12] BMI: Estimated body mass index is 20.48 kg/m? as calculated from the following: Height as of 04/20/18: 182.9 cm (6'). Weight as of this encounter: 68.5 kg (151 lb). OPERATIVE INDICATIONS: This is a 52 year old male with osteoarthritis of the left hip. Non-operative management had been exhausted.The decision was made to proceed with a total hip arthroplasty. Risks, benefits, and alternatives were discussed. He expressed understanding and consented to the procedure as outlined above. IMPLANTS: [employer] Total Hip System SIZE TYPE Acetabulum 56 mm OsseoTi Screws Polyethylene Liner 40 mm Neutral Femur 17 lateralized Taperloc Femoral Head 40mm, +3 Ceramic 3 - 2.0 beaded stainless steel cables OPERATIVE FINDINGS: Severe osteoarthritis of the left hip OPERATIVE PROCEDURE: The patient was identified and brought into the Operating Room by the anesthesia and nursing team. Anesthesia was successfully performed. The patient was then positioned lateral decubitus on the operating room table with the Left hip facing up . Intravenous antibiotic prophylaxis dosing was confirmed. The Leftlower extremity was then prepped and draped in the usual sterile fashion with Chloraprep scrub. Tranexamic acid wasgiven prior to incision and again at the time of closure for blood conservation. A surgical time-out was performed immediately preceding the incision with all personnel in the operating room; the patient identity was again confirmed, the surgical site and extremity were identified and confirmed, X-rays were reviewed, and availability of the appropriate surgical equipment was established. Direct lateral approach to the hip was undertaken. Sharp dissection was carried out through skin and subcutaneous tissue down to the level of the IT band. The IT band was split in line with the skin incision. A portion of the gluteus medius was released from the greater trochanter. The gluteus minimus was released from the greater trochanter and tagged with suture. Anterior capsulectomy was then performed. The hip was dislocated. The boxing and pressing supervisor osteotome was utilized to lateralize the starting point of proximal femur. The canal finder was inserted and sequential broaching was performed up to an 17 which provided external rotational stability. Retractors were then placed around the acetabulum. Remainder of the anterior capsule and the labrum was excised. Reaming began at 54 and increased sequentially to a 55 to accommodate a 56 acetabulum. A 56 acetabulum was impacted in place with assistance from the external alignment guide. Excellent rim fit was obtained. The liner was then impacted into the cup. A lateral neck and a 40 +3 head was then tried. The hip was reduced. It was taken through range of motion and was very stable. No tendency towards dislocation or impingement. The limb lengths were closely reapproximated, so the decision was made to use these size components. The hip was dislocated. All trial components were removed from the femur. The pain cocktail was injected into the soft tissues. The stem was then impacted into the femur. A calcar fracture was noted. Dissection was carried out to the distal most end of the split, stem was removed and a 2.0 stainless steel cable was placed distally, tensioned, crimped, and cut. Two additional cables were likewise placed around the split. Excellent fit was obtained. The head was impacted onto the neck, thereby engaging the taper. The hip was reduced. It continued to move well. The decision was made to proceed with closure. The wound was copiously irrigated out with normal saline with the pulse lavage. Instrument and sponge count was completed and confirmed correct. The gluteus minimus was reapproximated to the greater trochanter with 5.0 suture anchor, followed by a 1 Tycron suture. The gluteus medius was reapproximated to the greater trochanter with 1 Tycron suture. The deep subcutaneous tissue was closed with a running 1-0 Polysorb suture. The subcutaneous tissue was closed with an interrupted 2-0 Polysorb suture. The skin was closed with a running 4-0 Biosyn. Sure-close skin glue was applied and when completely dry, the sterile Aquacel silver impregnated dressing was applied. Abduction pillow was inserted. The patient was stable to PACU. POSTOPERATIVE MANAGEMENT: Patient is weightbearing as tolerated. They will receive 325 mg aspirin BID x 6 weeks for DVT prophylaxis, appropriate pain medications and 24 hours of appropriate antibiotic for infection prophylaxis. SPECIMENS: The femoral head, neck and synovium. PAIN COCKTAIL: 50cc of 0.25% Marcaine without epinephrine, 20cc of Exparel 266 mg, 1 cc of Morphine (10mg), 1 cc Toradol (30mg) injected into the periosteum and soft tissues EBL: 500 cc DRAINS: None. COUNTS: Correct. COMPLICATIONS: None. Operative Time: * Missing case tracking time(s) * Incision Start: 3:25 PM Incision Stop: 5:34 PM SIGNATURE: Suman Nguyen Jr, MD DATE: April 27, 2018 TIME: 5:39 PM [facility] PT EDon 04-27-2018 PT ED HNO ID: [id number] Author: Samantha (Rn) ABDULAZIZ Prince Service: Nursing Author Type: Registered Nurse Type: Patient Education Filed: 04/27/2018 1:24 PM Note Text: PRE OP LEARNING ASSESSMENT PROCEDURE/SURGERY: SURGERY: Left hip arthroplasty READINESS TO LEARN COGNITIVE ABILITY: Alert and oriented MOTIVATION TO LEARN: Interested FAMILY SUPPORT: Unable to assess - Family not present PATIENT LEARNS BEST BY: Multiple Methods FACTORS AFFECTING LEARNING: None PHYSICAL LIMITATIONS AFFECTING LEARNING: None Electronically Signed By: Samantha Prince RN In Department: [facility] SURGERY Normal [facility] SURGICAL PATHOLOGYon 019 SURGICAL PATHOLOGY Specimen originated from [facility] Specimen #: [id number] Submitting Physician: SUMAN NGUYEN MD FINAL DIAGNOSIS Femoral head, left, arthroplasty - Degenerative joint disease. J/HANNA/val 05/02/18 Junaid Nieto M.D. (Electronic Signature) SPECIMEN SUBMITTED A: LEFT FEMORAL HEAD CLINICAL DATA OSTEOARTHRITIS OF LEFT HIP GROSS DESCRIPTION A. Received in formalin labeled as left femoral head consists of a femoral head measuring approximately 6.5 x 6.0 x 6.0 cm. The articular surface demonstrates an area of eburnated surface. Recognizable cartilage appears roughened and several osteophytes are present. The femoral head is cut with a band saw to reveal florid, trabecular bone beneath the area of eburnation. No subchondral cyst identified. No grossly necrotic bone is seen. Minimally attached soft tissue is seen. Jar Capper sections are submitted in the following cassettes: A1 soft tissue; A2 bone following decalcification. TN/dcr 04/28/2018 Gross examination performed at [facility], [address] [place] [address] [place] [address] Date of Report: 05/03/2018 Date of Procedure: 04/27/2018 Date of Receipt: 04/27/2018 Submitted by: SUMAN NGUYEN MD Location: [facility] Diagnostic interpretation performed at [facility], [address] [place] [address]. [facility] Comment on above: Performed By: #### S #### See report for performing lab information. XR PELVIS 1V APon 04-27-2018 XR PELVIS 1V AP * * *Final Report* * * DATE OF EXAM: Apr 27 2018 6:07PM VHX [id number] - XR PELVIS 1V AP / PROCEDURE REASON: Post-operative / post-procedure assessment, asymptomatic * * * * Physician Interpretation * * * * HISTORY: Post-operative / post-procedure assessment, asymptomatic PELVIS TECHNIQUE: A single frontal portable view of the pelvis is obtained following the surgery. RESULT: Comparison: April 02, 2018 A left total hip prosthesis with cerclage wires at the femoral stem is noted in good alignment on this single frontal view. No evidence of fracture or joint dislocation is noted. Subcutaneous air densities are noted in the hip area from recent surgery. Right total hip prosthesis is again noted, unchanged. IMPRESSION: Left total hip prosthesis in place. Banking Management Consulting Manager: PSCB Transcribe Date/Time: Apr 27 2018 6:16P Dictated by : MNAISH POLLARD MD This examination was interpreted and the report reviewed and electronically signed by: MANISH POLLARD MD on Apr 27 2018 6:17PM EST [id number] [facility] NURSING PROGon 04-23-2018 Protein mass conc HNO ID: [id number] Author: Amparo (Rn) ABDULAZIZ Agudelo Service: (none) Author Type: Registered Nurse Type: Nursing Progress Note Filed: 04/23/2018 10:45 AM Note Text: PACC Nurse Progress Note History AND Physical: PACC Visit Date: 04/20 Original HANDP Date: N/A ED visit Date: N/A Outside HANDP Scanned Date: N/A Labs Within Last 6 Months: CBC: Date 04/20 BMP/CMP: Date 04/20 PT: Date 04/20 UA: Date 04/20 Urine C+S: 04/20 STAAMP: Date 04/02 TYPE AND SCREEN: Date 04/20 OTHER TEST: ferritin, iron and tibc, Date 04/21 within acceptable limits Imaging Within Last 12 Months: N/A Cardiac Testing: EKG in last 12 Months: Yes: Date: 04/20, Comment: preliminary Last Menstrual Period: LMP Date: N/A Postmenopausal >1yr: N/A, S/P Hysterectomy: N/A BMI Percentile (PEDS): N/A Risk Assessment: N/A Anesthesia Review: N/A Narrative: N/A Pre-op Considerations: N/A Chart Check: IN PROGRESS - ekg needs final read Amparo Agudelo RN April 23, 2018 10:37 AM [facility] HISTORY PHYSICALon HISTORY PHYSICAL HNO ID: [id number] Author: Kate Reyna Service: (none) Author Type: Physician Striker Off Type: HANDP Filed: 04/20/2018 9:07 AM Note Text: HISTORY AND PHYSICAL EXAMINATION SERVICE DATE: 04/20/2018 SERVICE TIME: 8:49 AM PRIMARY CARE PHYSICIAN: Rio Alanis MD REASON FOR VISIT: Sandra Boss is a 52 year old male who is scheduled for Left hip arthroplasty at the request of Dr. Suman Nguyen Jr. for consultation. My final recommendation will be communicated back to the requesting physician by way of shared medical record or letter. The patient has the following: ACTIVE PROBLEM LIST Osteoarthritis of Right Hip Pain in Right Hip Greater Trochanteric Bursitis of Right Hip Primary Osteoarthritis of Right Hip Tear of Right Gluteus Minimus Tendon Osteoarthritis of Left Hip Subjective CHIEF COMPLAINT: Pre-Op Visit, Hip pain HPI: 52 y/o male presenting for pre-anesthesia consultation. Patient has had left hip pain for several years. Constant now, described as sharp and throbbing. Rated 6-7/10 today. Improves with laying down and ice. Pain mostly in left groin. X-ray showed advanced degenerative arthritis. Seen by surgeon, has been recommended for above surgery. PAST MEDICAL HISTORY Diagnosis Date - OA (osteoarthritis) of hip 2016 PAST SURGICAL HISTORY Procedure Laterality Date - APPENDECTOMY - SHOULDER ARTHROSCOPY/SURG Right - TOTAL HIP REPLACEMENT 03/18/2017 Hip replacement, total FAMILY HISTORY Problem Relation Age of Onset - None Mother - None Father SOCIAL HISTORY: Social History Marital status: Single Spouse name: Years of education: Number of children: Social History Main Topics Smoking status: Current Every Day Smoker Packs/day: 1.00 Years: 15.00 Types: Cigarettes Start date: 06/30/2002 Smokeless tobacco: Never Used Alcohol use: No Drug use: No MEDICATIONS: Prior to Admission medications as of 04/07/18 1117 Medication Sig Last Dose Taking ibuprofen (MOTRIN) 200 mg tablet Take 200 mg by mouth every 6 hours as needed for Pain. Taking acetaminophen (TYLENOL) 500 mg tablet Take 2 tablets by mouth every 8 hours. (Mild pain reliever) Taking MULTIVITAMIN WITH MINERALS (MULTIVITAMIN AND MINERAL FORMULA ORAL) Take 1 tablet by mouth once daily. Taking No medication comments found. CURRENT ALLERGIES: ALLERGIES No Known Allergies REVIEW OF SYSTEMS: PAIN ASSESSMENT: General: No weight loss, malaise or fevers. Neuro: No history of TIA's, stroke, HEALTHCARE RECEPTIONIST tumor, impaired sensorium, hemiplegia, paraplegia or quadraplegia. No neurological symptoms or problems. Respiratory: +Current smoker Negative for Asthma, Current cough, Dyspnea, URI < 2 weeks Cardiovascular: No history of HTN requiring medication, no history of angina, CHF, [place], cardiac surgery or stents. Denies rest pain, gangrene or revascularization/am putation for PVD. No history of cardiovascular symptoms or problems. GI: No history of GI symptoms or problems. No history of esophageal varices, recent ascites, or ETOH greater than 2 drinks per day. : No history of dysuria, frequency or incontinence,, stones or chronic kidney disease Endocrine: No history of diabetes. Has not taken steroids within the past 30 days. No history of endocrinological symptoms or problems. Hematology: No history of bleeding or clotting disorder. Pt is not taking anti-coagulation or platelet medications. No history of hematological symptoms or problems. Oncology: No history of CA metastasis, chemo within 30 days, or radiotherapy within 90 days. Has not lost 10% of body wt in 6 months. No history of oncological symptoms or problems. Psych: No history of psychiatric symptoms or problems. Musculoskeletal: See HPI Skin: Negative for lesions, rash and itching. Objective PHYSICAL EXAM: VITALS: BP 100/71 Pulse 76 Temp (Src) 97.6 (Temporal Artery) Resp 18 Ht 6' 0 (1.83m) Wt 151 lb (68.5kg) SpO2 99% BMI 20.47 kg/(m2). General: Alert and oriented, No acute distress, Healthy appearance Skin: Normal color, no rash, no lesions. HEENT: EOM, pupils equal, round and reactive. Cardiovascular: Normal S1 AND S2, no rubs, murmurs or gallops. No JVD. Pulse regular. Lungs: Normal breath sounds, no wheezes or crackles. Abdomen: Soft, non-tender, no rigidity., Positive bowel sounds Extremities: No deformity, no edema or tenderness, no joint swelling or clubbing. - except left hip exam, details deferred to surgeon Neurological: Normal cognition and motor skills. Pulses: Carotid and radial pulses normal +2. 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 ASA Class: 2 ANESTHESIA FINDINGS: Intubation History: No history of difficult intubation Significant Anesthesia Considerations: None Airway Exam: General: Normal appearance Mallampati Score is CLASS I ULBT: Class I - Lower incisors can bite the upper lip above the puja line Neck: Normal appearance and function, Distance from hyoid to mentum during neck extension is at least 3 finger breaths Mouth: Normal tongue size and Mouth opening greater than 2 finger breaths Dentition: Intact Airway History: No abnormal airway history STOP BANG Score: Criteria: Age over 50 (52 year old) Male gender Score = 2 PLAN This patient is optimally prepared for surgery pending LABS and EKG. CONSULTS: Patient does not require consults for optimization at this time. The Following Tests/Procedures Have Been Initiated: Orders Placed This Encounter ECG COMPLETE W INTERPRETATION Orders placed by surgeon: Prealbumin, CMP, CBC, UA, urine culture, PT/INR, type and screen, Iron + TIBC, ferritin, transferrin, HgbA1C Planned Anesthetic: Per anesthesia choice Instructions Given to Patient: Patient given verbal and written preop instructions and voices comprehension and compliance. SIGNATURE: Kate Reyna PA-C PATIENT NAME: Sandra Boss DATE: April 20, 2018 TIME: 8:50 AM PAGER/CONTACT #: [facility] Type and SCR (30D)on 019 ABO/RH(D) Positive [facility] HOSPon 04-02-2018 HOSP Patient:Sandra Boss MRN: Height:6' 0 (1.829 m) Weight:151 lb (68.493 kg) Outpatient Medications as of 04/27/18: ibuprofen (MOTRIN) 200 mg tablet acetaminophen (TYLENOL) 500 mg tablet MULTIVITAMIN WITH MINERALS (MULTIVITAMIN AND MINERAL FORMULA ORAL) Admission/Clinic Administered Medications as of 04/27/18: ceFAZolin iv piggyback 2 g in D5W (iso-osmotic) 100 mL (ANCEF) lactated ringers infusion scopolamine 1 mg over 3 days 1 Patch (TRANSDERM-SCOP) scopolamine - REMOVE PATCH scopolamine - VERIFY patch Problem List: Osteoarthritis of right hip [M16.11] Pain in right hip [M25.551] Greater trochanteric bursitis of right hip [M70.61] Primary osteoarthritis of right hip [M16.11] Tear of right gluteus minimus tendon [S76.011A] Osteoarthritis of left hip [M16.12] Current smoker [F17.200] Allergies: No Known Allergies Date Verified:04/27/18 Lab Values Lab Value Units Date High Low POTA* 4.8 mmol/L 04/20/2018 5.1 3.7 LAW* 45.1 % 04/20/2018 51.0 39.0 Progress Notes ([facility]): RT Jeovany 04/02/2018 9:49 AM Signed Radiology Service Progress Note Radiology Service Progress Note PATIENT NAME: Sandra Boss DATE OF SERVICE: April 02, 2018 TIME: 9:48 AM PATIENT IDENTITY VERIFICATION COMPLETED USING TWO (2) METHODS: Patient confirmed name verbally and Date of . PATIENT GENDER DATA: Male PATIENT RELEVANT IMPLANT DATA REVIEWED: Not Applicable RADIOLOGY DEPARTMENT: General X-ray: Exam(s) Completed: Pelvis X-Ray: Pelvis with Hip Left PERIPHERAL IV DATA: Not applicable SIGNED BY: RT Jeovany April 02, 2018 9:48 AM Progress Notes (RAMIN MAYFIELD): Suman Nguyen Jr, MD 04/02/2018 11:05 AM Signed Established Patient Ortho Hip Consult Note ASSESSMENT AND PLAN: Impression: Left Hip Severe Degenerative Osteoarthritis, Primary Sandra Boss has radiograph and physical exam evidence of degenerative joint disease and wishes to pursue surgery. This patient appears to have sufficient symptoms to warrant surgical intervention and is an appropriate candidate for left Primary Total Hip Arthroplasty as evidenced by progressive symptoms. Progressive symptoms include: Pain impacting work Pain worsened by weight bearing Pain effecting living situation Pain limiting ability to stay fit and healthy. We had a lengthy discussion regarding the risk and benefit of surgery, the alternatives, limitations and personnel involved. These included but were not limited to infection, persistent pain, instability, nerve injury, blood clots, and medical complications. We also discussed the pre-operative course, surgery itself and rehabilitation. Alva-operative blood management and transfusion issues were discussed, and options clearly outlined. The patient has consented to the use of the banked allogenic blood if medically necessary. The patient has elected to schedule surgery at this time or intends to call the office with a surgical date. Shared decision making occurred while obtaining informed consent. The patient will be scheduled for a pre-operative education class at which time they will have their nasal swab completed and will be given CHG cloths along with the verbal and written instructions for their use. The patient has been ordered: Nasal Swab Culture CONSULTS: Internal Medicine Consult for preoperative clearance. ACTIVE PROBLEM LIST Osteoarthritis of Right Hip Pain in Right Hip Greater Trochanteric Bursitis of Right Hip Primary Osteoarthritis of Right Hip Tear of Right Gluteus Minimus Tendon SUBJECTIVE CHIEF COMPLAINT: Hip Pain HPI: Sandra Boss is a 52 year old male here for evaluation and management of Left hip pain. He has had progressive problems with the hip(s) most of the day over the past 1 year(s) interfering with activities which include exercise, participating in family activities, enjoying hobbies, walking, standing for prolonged periods of time, getting in and out of a car and dressing. The problem began limiting activities 7-12 months ago. Currently the pain in the joint is rated at 8 out of 10 with minimal activity. The pain is chronic and is located in the left hip, groin and thigh. The pain is described as aching and boring. Relieving factors include rest. There is no specific incident that brought about this pain. He has no additional complaints. Preoperative Ambulatory Status: Independent Community Distances Number of Entry Steps: 3 Bedroom Location: First floor Bathroom Location: First floor Caregiver Assistance: Consistent/Live-In (5-7 days/wk) Home Location: Up to 150 miles PREVIOUS TREATMENTS: Medical: OTC NSAIDS for 3 Months or Greater (Ibuprofen) RISK FACTORS: None PHYSICAL EXAM There were no vitals taken for this visit. All other systems deferred. BACK EXAM: Adequate flexion and extension, negative straight leg raise test bilaterally. GENERAL: Appears healthy, well-nourished, no deformities. HABITUS: Normal GAIT: Antalgic to the left HIP EXAM: Left: ROM: Extension: 5 degree flexion contracture Flexion: 90 degrees Internal Rotation: 5 degrees External Rotation: 25 degrees Abduction: 30 degrees Adduction: 0 degrees Strength: Abduction 5/5 and Flexion 5/5 Palpation: No tenderness Log roll: painful. Straight leg raise: Negative Neurovascular Status: Sensation Intact, Moves foot and ankle up AND down and 2+ dorsalis pedis DATA: Diagnostic tests reviewed for today's visit: No new labs SIGNATURE: Suman Nguyen Jr, MD PATIENT NAME: Sandra Boss DATE: April 02, 2018 TIME: 11:03 AM Kenzie Morfin 04/02/2018 1:25 PM Signed Addended by: KENZIE MAHMOOD on: 04/02/2018 01:25 PM Modules accepted: Orders Normal [facility] Basic Metabolic Panlon 07-02 Anion gap molar conc 10 mmol/L Normal 9-18 [facility] Calcium mass conc 8.7 mg/dL Normal 8.6-10.0 [facility] spital Chloride molar conc 103 mmol/L Normal 97-105 [facility] CO2 molar conc 25 mmol/L Normal 22-30 [facility] Creatinine mass conc 0.95 mg/dL Normal 0.73-1.22 [facility] eGFR- Amer. >60 Normal [facility] ospital GFR/1.73 sq M predicted among non-blacks MDRD vol rate/area (S/P/Bld) mL/min/{1.73_m2} [facility] Comment on above: Result Comment: eGFR (Estimated GFR) Units of measure: mL/min/1.73 meters squared eGFR is derived from the reexpressed MDRD Study equation using the following parameters: serum creatinine, age, gender and race. The creatinine assay has been calibrated to be traceable to IDMS. An eGFR <60 mL/min/1.73m2 for >3 months is consistent with chronic kidney disease. Refer to KDOQI guidelines for clinical interpretation. In patients with unstable renal function, e.g. those with acute kidney injury, the eGFR may not accurately reflect actual GFR. Glucose mass conc 127 mg/dL High 74-99 [facility] milla Comment on above: Result Comment: The [place] Diabetes Association (ADA) provides guidance for cutoff values for fasting glucose and random glucose. The ADA defines fasting as no caloric intake for at least 8 hours. Fasting plasma glucose results between 100 to 125 mg/dL indicate increased risk for diabetes (prediabetes). Fasting plasma glucose results greater than or equal to 126 mg/dL meet the criteria for diagnosis of diabetes. In the absence of unequivocal hyperglycemia, results should be confirmed by repeat testing. In a patient with classic symptoms of hyperglycemia or hyperglycemic crisis, random plasma glucose results greater than or equal to 200 mg/dL meet the criteria for diagnosis of diabetes. Reference: Standards of Medical Care in Diabetes 2016, [place] [employer]. Diabetes Care. 2016.39(Suppl 1). Potassium molar conc 4.6 mmol/L Normal 3.7-5.1 [facility] Sodium molar conc 138 mmol/L Normal 136-144 [facility] milla Urea nitrogen mass conc 14 mg/dL Normal 9-24 [facility] CONSULT PROGon 07-02-2017 Protein mass conc HNO ID: [id number] Author: Kacy Canela Service: Hospital Medicine Author Type: Physician Type: Consult Progress Note Filed: 07/02/2017 10:07 AM Note Text: Hospital Medicine Noted plans by primary service for discharge. BMP unremarkable. VSS Outpatient multivitamin continued on discharge med rec. Stable for discharge home from medical perspective. Will sign off. Please call with questions. Kacy Canela D.O. Staff, Department of Hospital Medicine Pager [phone] Normal [facility] PLAN OF CAREon 07-02-2017 PLAN OF CARE HNO ID: [id number] Author: Jane Mccord (Ticket Sales Supervisor) Service: (none) Author Type: Senior Corporate Recruiter Type: Plan of Care Filed: 07/02/2017 4:17 PM Note Text: PHARMACY BEDSIDE DELIVERY SERVICE Patient Name: Sandra Boss The marked outpatient medications were Filled at: [place] and delivered to the patient's bedside to patient Medication List START taking these medications x acetaminophen 500 mg tablet Commonly known as: TYLENOL Take 2 tablets by mouth every 8 hours. (Mild pain reliever) x oxyCODONE IR 5 mg immediate release tablet Commonly known as: ROXICODONE Take 1-2 tablets by mouth every 4 hours as needed for Pain for up to 7 days. (Pain medication) CONTINUE taking these medications MULTIVITAMIN AND MINERAL FORMULA ORAL STOP taking these medications traMADol 50 mg tablet Commonly known as: ULTRAM Jane Mccord ([facility]) PAGER: lucretia July 02, 2017 4:17 PM [facility] OF CARE HNO ID: [id number] Author: Jane Mccord ([facility]) Service: (none) Author Type: Senior Corporate Recruiter Type: Plan of Care Filed: 07/02/2017 9:26 AM Note Text: Pharmacy Discharge Medication Service: This patient has elected to receive their discharge prescriptions through the [facility] Bedside Prescription Delivery program. The prescriptions are currently being processed. A follow-up note will be entered once the prescriptions have been filled and delivered to the patient. Please contact me with any questions or updates to the patient's discharge medications. Jane Mccord ([facility]) DCT Contact Info: [facility] PLAN OF CARE HNO ID: [id number] Author: Jane Mccord ([facility]) Service: (none) Author Type: Senior Corporate Recruiter Type: Plan of Care Filed: 07/02/2017 9:26 AM Note Text: CONVERTER SUPERVISOR BEDSIDE DELIVERY SURVEY 1. Patient to use [facility] Bedside Delivery - YES 2. If fax, patient would like us to fax prescriptions to Pharmacy of choice a. Pharmacy: b. Location: c. Phone: 3. Insurance card on file - YES 4. Credit card for payment - NO [facility] PLAN OF CARE HNO ID: [id number] Author: Brittany DavisRn) ABDULAZIZ Albert Service: Care Management Author Type: Registered Nurse Type: Plan of Care Filed: 07/02/2017 8:44 AM Note Text: MULTIDISCIPLINARY ROUNDS SERVICE DATE: 07/02/2017 ADMISSION DATE: 07/01/2017 SERVICE TIME: 8:44 AM ANTICIPATED D/C DATE: 07/02/17 Problem List: ACTIVE PROBLEM LIST Osteoarthritis of Right Hip Pain in Right Hip Greater Trochanteric Bursitis of Right Hip Primary Osteoarthritis of Right Hip Tear of Right Gluteus Minimus Tendon Attendees Present at Rounds: Guide Visitor: y Pharmacy: y Physical Therapy: y Staff Nurse: jones Needs Discussed on Rounds: Plan of Care Anticipated Discharge Disposition: Home/Self Care Last Vitals: BP 116/67 Pulse 54 Temp (Src) 97.9 (Oral) Resp 16 Ht 6' 0 (1.83m) Wt 159 lb 2.8 oz (72.2kg) SpO2 96% BMI 21.58 kg/(m2). Waiting for brace Nursing: Anxiety Intervention(s) Plan: Answer Questions and Provide Information on Coping Skills Anxiety Goals/Outcomes: Patient Verbalizes/Demonstra rafaela Decreased Anxiety Anxiety Goal Target Achievement Date: 07/02/17Mobility Intervention(s) Plan: Advance Mobility Mobility Patient/Family Goals: Demonstrates ability to complete transfers with least level of assist. Mobility Goal Target Achievement Date: 07/02/17 Pain Intervention(s) Plan: Pain Assessment, Management, Reassessment Per Scoring Tool Pain Goals/Outcomes: Decrease in Pain Level per Scoring Tool Pain Goal Target Achievement Date: 07/02/17 Safety Intervention(s) Plan: Employ Safe Mobility Safety Goals/Outcomes: Maintain Patient Safety Safety Goal Target Achievement Date: 07/02/17 DOCUMENTED BY: Brittany Albert RN PATIENT NAME: Sandra Boss DATE: July 02, 2017 TIME: 8:44 AM CSN: [id number] [facility] PROGRESSon 07-02-2017 Protein mass conc HNO ID: [id number] Author: Christel Sprague (Pa) Service: Orthopaedic Surgery Author Type: Physician Striker Off Type: Progress Notes Filed: 07/02/2017 7:48 AM Note Text: ORTHOPAEDIC POSTOP PROGRESS NOTE SERVICE DATE: 07/02/2017 SERVICE TIME: 7:46 AM Subjective Patient states that they are comfortable. Has some burning pain to incision site. Otherwise feeling Ok. Tolerating OxyIR well; has worked well in the past. Understanding of need for hip abduction brace to be worn at all times except in shower. Denies CP, SOB, palpitations, dizziness. Planning for discharge home once brace received. Objective VITAL SIGNS: BP 92/61 Pulse (!) 59 Temp 36.8 ?C (98.2 ?F) (Oral) Resp 18 Ht 182.9 cm (6') Wt 72.2 kg (159 lb 2.8 oz) SpO2 97% BMI 21.59 kg/m2 INTAKE AND OUTPUT: Intake/Output Summary (Last 24 hours) at 07/02/17 0745 Last data filed at 07/02/17 0600 Gross per 24 hour Intake 2880 ml Output 805 ml Net 2075 ml PHYSICAL EXAMINATION: Right Lower Extremity: Dorsalis pedis pulses palpable. Posterior tibial pulses palpable. Dorsi flexion 5/5. Plantar flexion 5/5. Sensory intact to light touch L1-S1. Dressing clean, dry and intact. Surgical site no drainage and Aquacell intact. Calf soft and nontender; ilnaa's negative. Good quad and glute set. Problem Review and Assessment: Patient monitored, no new events overnight. LABS: DATA: Diagnostic tests reviewed for today's visit: No new labs Assessment/Plan S/P Procedure(s) (LRB): SUTURE ABDUCTOR TENDON HIP (Right) on 07/01/2017 POSTOP PLAN: Physical Therapy evaluation-WBAT with abduction brace once arrives; bed rest until brace arrives DVT prophylaxis: Graduated compression stockings (GCS) and Intermittent pneumatic compression device (IPCD) Pain control-OxyIR and Tylenol; Patient underwent major orthopedic surgery with joint replacement and will require more than allocated 30MED for acute pain management. Case Management for discharge planning-Home once abduction brace received. ACTIVE PROBLEM LIST Osteoarthritis of Right Hip Pain in Right Hip Greater Trochanteric Bursitis of Right Hip Primary Osteoarthritis of Right Hip Tear of Right Gluteus Minimus Tendon POST OPERATIVE COMPLICATIONS: Complicated by: uneventful/none SIGNATURE: Christel Sprague PA-C PATIENT NAME: Sandra Boss DATE: July 02, 2017 TIME: 7:45 AM PAGER/CONTACT #: [phone] [facility] THERAPY NTon 07-02-2017 THERAPY NT HNO ID: [id number] Author: Kate Jordan (Pt) Venkat Service: Physical Therapy Author Type: Physical Therapist Type: Therapy (PT/OT/Speech/Resp) Filed: 07/02/2017 3:45 PM Note Text: Physical Therapy Evaluation SERVICE DATE: 07/02/2017 SERVICE TIME: 1435 to 1458 ROOM: [place] [address] Recommended Discharge Disposition: Home Recommended Discharge Disposition Comments: No PT needs until able to remove brace and start strengthening R hip Recommended Discharge Equipment: No equipment needs anticipated PT Recommendations to Nursing: Ambulate without device;To bathroom;In halls PT 6 Clicks Score: 24 Precautions/Activity Restrictions: Brace;Hip Precautions - Posterior Dislocation;Weight Bearing Restrictions Extremity With Weight Bearing Restricted: Right Lower Extremity Right Lower Extremity Weight Bearing Status: WBAT ASSESSMENT : Patient presents with decreased ROM and mobility. Pt with hip ABD brace in place. Reviewed his hip precautions and instructed him to maintain precautions until he no longer needs to wear the brace when his surgeon clears him to do so. Pt was S for all mobility. Pt initially using a RW, then progressed to quad cane, but ultimately did not require any AD for ambulation. Instructed pt to revert back to the cane or walker if he should have increased pain when the blocks wear off and pt verbalized understanding. Do no anticipate any PT needs until he is cleared by his surgeon to begin strengthening R hip/glut area (likely once Hip ABD brace is DC'D. Pt is cleared for DC home today. Tolerated Full Session Patient /Caregiver Goals: Go Home Goals for Plan of Care: PLAN: Treatment Frequency (times per week): Discontinue Therapy Services Reasons Therapy Services Discontinued: Independent in all functional mobility Treatment Interventions: Education;Functional Mobility Training Plan of Care developed with: Patient TREATMENT INTERVENTIONS: Therapy Diagnosis: Reduced mobility-other Interventions Provided: Evaluation;Gait Training (87327) $ Evaluation-Low (40890) Billed Units: 1 unit Gait Training (09829) Treatment Minutes: 8 1 unit Skilled Intervention(s): Instruction in sit to stand technique with proper hand placement and body positioning at edge of bed/chair, Instruction in stand to sit technique with LE's touching chair/bed and reaching back for surface, Instruction in sequencing, gait pattern, Instruction in correction of gait deviations, Instruction in stair negotiation and Instruction in use of equipment, cues for sequence and pattern Total Timed Code Treatment Minutes: 8 Total Treatment Time (minutes): 23 FUNCTIONAL G CODE: PT 6 Clicks Score: 24 (07/02/17 143) Mobility: Walking and Moving Around Current Status (G8978): CH (07/02/171434) Mobility: Walking and Moving Around Goal Status (G8979): (07/02/17 1435) Mobility: Walking and Moving Around Discharge Status (G8980): (07/02/17 1435) Based on clinical assessment and the score on the 6 Clicks Functional Assessment Tool, the G code and corresponding severity modifiers are documented above. Physician signature certifies treatment plan of care established above for the period of 07/02/2017 through 07/16/2017. SUBJECTIVE: Current Hospital Course: Chart reviewed; Pt with gluteus minimus tear as well as a defect in the iliotibial band S/P sugical repair 07/01 (Froy) R SUKUMAR 03/2017. PAST MEDICAL HISTORY Diagnosis Date - OA (osteoarthritis) of hip 2016 Patient Report: Pt in bed, pleasant, agreeable to therapy. Home Environment Patient Lives With: Significant Other Assistance Available: time study technologist Entry To Home: Stairs;With Rail Number Of Stairs Into Home: 3 Number Of Stairs To Bed/Bath: 1st floor bed and bath Tub/Shower Type: walk-in shower with grab Equipment Owned: Standard Walker (quad cane) Prior Functional Level: Within Functional Limits (IND ADLs and amb, + drive, construction) OBJECTIVE: CURRENT FUNCTIONAL STATUS: Current Functional Mobility Assist Level Additional Information Rolling Supine to Sit Sit to Supine Scooting Sit to Stand Supervision Stand to Sit Supervision Bed to Chair Toilet/Commode Gait Supervision Gait Device: Wheeled Walker (quad cane) Gait Distance (feet): 40x1, 180x2 pt mainly just carrying the walker and cane, able to ambulate without any AD without difficultly Stairs Stand By Assistance Stairs Device: Rail Number of Stairs: 4- Pt able to demonstrate step-to sequence without difficulty and without needing to use the cane Curb Step Car Transfer Gait Deviations Right Lower Extremity: Heel strike during initial stance decreased;Push-off during terminal stance decreased;Step length decreased Range Of Motion: Within Functional Limits Except Location ROM Not WFL: Hip Left Hip ROM: wfl Right Hip ROM: R hip restricted by hip precautions and ABD brace Strength: Within Functional Limits Please see discipline specific clinical documentation flowsheet for complete details for this therapy evaluation/treatment . SIGNATURE: Kate Robledo, PT PATIENT NAME: Sandra Boss DATE: July 02, 2017 TIME: 3:41 PM PAGER/CONTACT #: [phone] [facility] ANES Luan 07-01-2017 ANES POST HNO ID: [id number] Author: Cassandra Slater Service: Anesthesiology Author Type: Physician Type: Anesthesia PostOp Filed: 07/01/2017 6:42 PM Note Text: POST ANESTHESIA EVALUATION NOTE SERVICE DATE: 07/01/2017 SERVICE TIME: 184 : 1965 Vitals: 07/01/17 1337 07/01/17 182 Temp: 36.6 ?C (97.9 ?F) 36.2 ?C (97.2 ?F) 07/01/17 1337 07/01/17 18207/01/17 183 BP: 144/91 116/82 125/89 07/01/17 1337 07/01/17 18207/01/17 183 Pulse: 78 73 61 07/01/17 1337 07/01/17 18207/01/17 183 Resp: 18 12 16 07/01/17 1337 07/01/17 18207/01/17 183 SpO2: 97% 98% 97% Validated Vital Signs: Yes POST ANES STATUS: No apparent anesthetic complications. The patient is appropriately hydrated with stable respiratory and cardiovascular status. Patient has safe and adequate airway control. The patient has appropriate pain relief and no significant post operative nausea or vomiting. The patient has achieved baseline mental status. Further assessment by Anesthesia Service: None Other Remarks: SIGNATURE: Cassandra Slater MD PATIENT NAME: Sandra Boss DATE: July 01, 2017 TIME: 6:41 PM PAGER/CONTACT #: [phone] [facility] ANES PREOPon 07-01-2017 ANES PREOP HNO ID: [id number] Author: Cassandra Slater Service: Anesthesiology Author Type: Physician Type: Anesthesia PreOp Filed: 07/01/2017 3:51 PM Note Text: ANESTHESIOLOGY DAY OF SURGERY NOTE SERVICE DATE: 07/01/2017 SERVICE TIME: 0 : 1965 Procedure(s) (LRB): SUTURE ABDUCTOR TENDON HIP (Right) Surgeon(s): Suman Nguyen Jr. Estimated body mass index is 21.16 kg/(m2) as calculated from the following: Height as of 06/30/17: 182.9 cm (6'). Weight as of 06/30/17: 70.8 kg (156 lb). Most recent hematocrit and potassium results: Hematocrit 33.3 03/19/2017 Potassium 4.7 03/19/2017 ANES DOS/PREOP NOTE: Vitals: 07/01/17 1337 BP: 144/91 Pulse: 78 Resp: 18 Temp: 36.6 ?C (97.9 ?F) TempSrc: Temporal Artery SpO2: 97% ACTIVE PROBLEM LIST Osteoarthritis of Right Hip Pain in Right Hip Greater Trochanteric Bursitis of Right Hip Primary Osteoarthritis of Right Hip Tear of Right Gluteus Minimus Tendon PAST MEDICAL HISTORY Diagnosis Date - OA (osteoarthritis) of hip 2016 PAST SURGICAL HISTORY Procedure Laterality Date - APPENDECTOMY - SHOULDER ARTHROSCOPY/SURG Right - TOTAL HIP REPLACEMENT 03/18/2017 Hip replacement, total FAMILY HISTORY Problem Relation Age of Onset - None Mother - None Father Social History: Social History Substance Use Topics - Smoking status: Current Every Day Smoker Packs/day: 1.00 Years: 15.00 Types: Cigarettes Start date: 06/30/2002 - Smokeless tobacco: Never Used - Alcohol use No No current facility-administere d medications on file prior to encounter. Current Outpatient Prescriptions on File Prior to Encounter: traMADol (ULTRAM) 50 mg tablet Take 1-2 tablets by mouth every 6 hours as needed for Pain for up to 7 days. Current Facility-Administere d Medications: 0.9% NaCl 2-10 mL 2-10 mL INTRAVENOUS q 12 H Christel (Tree Sprague 10 mL at 07/01/17 1413 ceFAZolin iv piggyback 2 g in D5W (iso-osmotic) 100 mL (ANCEF) 2 g INTRAVENOUS Pre-Op Once Christel (Chau) Celestine scopolamine 1 mg over 3 days 1 Patch (TRANSDERM-SCOP) 1 Patch TRANSDERMAL q 72 HR Christel (Tree Sprague 1 Patch at 07/01/17 1413 And [START ON 07/04/2017] scopolamine - REMOVE PATCH OTHER q 72 HR Christel (Chau) Celestine And scopolamine - VERIFY patch OTHER q 8 H Christel (Chau) Celestine Allergies: ALLERGIES No Known Allergies DOS EXAM: Adequate NPO Status: Yes Anesthetic Risks, Benefits, Alternatives, Personnel and Consent Discussed: Yes Patient agrees to proceed: Yes Previous Anesthesia: No history of adverse event Airway Assessment: MP 2; Neck ROM: Full ROM without neurologic symptoms; Airway Evaluation: No significant abnormalities Dentition: Teeth intact Additional Physical Exam: Lungs: Patient health status unchanged since recent history and physical. See history and physical for exam findings. Cardiac: Patient health status unchanged since recent history and physical. See history and physical for exam findings. Additional Pertinent Findings: N/A Blood Products: Will accept Blood/Blood Products Anesthetic Plan: Regional with general as back up Anesthetic Monitoring: Standard ASA Monitors Pain Management Plan: Parenteral or Oral ASA Class: 2 Other Medical Problems: None Chronic Beta Jose medication administered within 24 hours: N/A I have interviewed and examined the patient. I have reviewed the medical record and/or the pre-anesthesia evaluation, pertinent labs, and test results. Significant changes in the patient's condition since the History and Physical, not otherwise documented in primary service progress notes: No This contains updated information obtained within 48 hours of Surgery/Procedure. SIGNATURE: Cassandra Slater MD PATIENT NAME: Sandra Boss DATE: July 01, 2017 TIME: 3:51 PM CSN: [id number] [facility] CONSULTon 07-01-2017 CONSULT HNO ID: [id number] Author: Adalgisa Lovett Service: Hospital Medicine Author Type: Physician Type: Consults Filed: 07/01/2017 10:07 PM Note Text: DEPARTMENT OF HOSPITAL MEDICINE CONSULT NOTE SERVICE DATE: 07/01/2017 SERVICE TIME: 9:53 PM Primary Care Physician: Rio Alanis MD Subjective REASON FOR CONSULT: Medical management Hospital course: This is a 51 year old male with past medical history of OA, s/p right hip replacement, post op day 1 of right hip orthopedic surgery, requested medical management. Patient is currently lying comfortable on bed and not in distress. Complained of right hip pain and requesting pain medication now to help him sleep. Did not have any significant chronic medical illness and only taking Centrum men vitamin and ibuprofen for pain control at home. Denied any headache, fever, chest pain, shortness of breath, cough, palpitation, abdominal pain, nausea, vomiting, diarrhea or any urinary symptoms. Post op vitals stable. Noted mild anemia and and elevated WBC on his previous lab 3 months ago but no repeat labs pre/post surgery. PAST MEDICAL HISTORY Diagnosis Date - OA (osteoarthritis) of hip 2016 PAST SURGICAL HISTORY Procedure Laterality Date - APPENDECTOMY - SHOULDER ARTHROSCOPY/SURG Right - TOTAL HIP REPLACEMENT 03/18/2017 Hip replacement, total FAMILY HISTORY Problem Relation Age of Onset - None Mother - None Father Social History Substance Use Topics - Smoking status: Current Every Day Smoker Packs/day: 1.00 Years: 15.00 Types: Cigarettes Start date: 06/30/2002 - Smokeless tobacco: Never Used - Alcohol use No MEDICATIONS: Reviewed ALLERGIES No Known Allergies REVIEW OF SYSTEM: 10 points system reviews were done and negative except for those mentioned in HPI. Objective PHYSICAL EXAM: BP 117/74 Pulse 60 Temp (Src) 97.5 (Oral) Resp 18 Ht 6' 0 (1.83m) Wt 159 lb 2.8 oz (72.2kg) SpO2 98% BMI 21.58 kg/(m2). GENERAL: Alert, no distress, cooperative SKIN: Skin color, texture, turgor normal. No rashes or lesions. HEAD/SINUSES: No significant findings EYES: PERRLA, EOMI NECK: No jugulovenous distention, No carotid bruits, Carotid pulse normal contour, Supple BACK: Back symmetric, Normal curvature, ROM normal, No CVAT. LUNGS: Lungs clear to auscultation, Good diaphragmatic excursion CARDIAC: Normal S1 and S2; no rubs, murmurs, or gallops ABDOMEN: Abdomen soft, non-tender, BS normal, No masses or organomegaly EXTREMITIES: Able to move his right toes, distal pulse+ right, dressing applied at right hip without active bleeding. NEURO: Grossly normal cognition, motor function, and cranial nerves III-XII PULSES: 2+ radial DATA: Diagnostic tests reviewed for today's visit: Most recent labs and imaging results. Assessment/Plan Patient Active Hospital Problem List: Tear of right gluteus minimus tendon (06/29/2017) Plan: Stable post op patient without significant medical comorbid Monitor vitals Repeat CBC, BMP in am Pain medication as per orthopedic DVT prophylaxis as per orthopedic Antibiotic prophylaxis as per orthopedic PT/OT Follow up with PCP upon discharge Disposition: Home Plan of care discussed with: Patient SIGNATURE: Adalgisa Lovett MD PATIENT NAME: Sandra Boss DATE: July 01, 2017 TIME: 9:53 PM Normal [facility] HISTORY PHYSICALon 03-21-201 8 HISTORY PHYSICAL HNO ID: [id number] Author: Christel Sprague (Pa) Service: Orthopaedic Surgery Author Type: Physician Striker Off Type: HANDP Filed: 07/01/2017 1:38 PM Note Text: UPDATED HISTORY AND PHYSICAL EXAMINATION SERVICE DATE: 07/01/2017 SERVICE TIME: 1:38 PM PHYSICAL EXAM MUST BE COMPLETED ON ADMISSION The History and Physical (completed in the past 30 days) has been reviewed and the patient has been examined. The contents accurately reflect the patient's condition with the following additions or revisions since the HANDP was completed. Examination indicates no changes. This HANDP can be found in the Electronic Medical Record dated 06-30-17. SIGNATURE: Christel Sprague PA-C PATIENT NAME: Sandra Boss DATE: July 01, 2017 TIME: 1:38 PM PAGER: [facility] NURSING PROGon 07-01-2017 Protein mass conc HNO ID: [id number] Author: Brooke Zuniga RN Service: Nursing Author Type: Registered Nurse Type: Nursing Progress Note Filed: 07/01/2017 8:28 PM Note Text: Nursing Progress Note Patient Name: Sandra Boss Patient Location: [id number] Daily Note: Pt to rm 506 via bed from PACU. Pt awake AND alert. Resps even AND unlabored. Dressing to right hip dry AND intact. Denzel wrap to right leg. Abduction pillow in place. Good pedal pulses. Pt states still with some numbness AND tingling to lower right leg. Feels burning to right thigh area. This note was completed by: Brooke Zuniga RN [facility] OPERATIVE NOon 07-01-2017 OPERATIVE NO HNO ID: [id number] Author: Suman Nguyen Jr. Service: Orthopaedic Surgery Author Type: Physician Type: Operative Report Filed: 07/06/2017 1:59 PM Note Text: [facility] - Operative Report BOSSSANDRA : 1965 AGE: 51 SEX: M CSN: [id number] [facility]: [facility] LOCATION: [facility] ATTENDING PHYSICIAN: Suman Nguyen M.D. DATE OF PROCEDURE: 07/01/2017 PREOPERATIVE DIAGNOSIS: A tear of the gluteus medius and gluteus minimus tendons as well as the iliotibial band on the right hip. POSTOPERATIVE DIAGNOSIS: A tear of the gluteus medius and gluteus minimus tendons as well as the iliotibial band on the right hip. NAME OF OPERATION: An open repair of the gluteus medius and gluteus minimus as well as the iliotibial band on the right hip. The 5.0 FiberTape with the SwiveLock anchor from [employer] were utilized to repair the gluteus through the abductor muscles. SURGEON: Suman Nguyen M.D. BOXING INSPECTOR: Christel Sprague PA-C. Her assistance consisted of assistance with positioning of the limb retraction and closing. ANESTHESIA: Spinal. START TIME: 1648. END TIME: 1814. CONDITION: Stable. BLOOD LOSS: 30 mL. INDICATIONS FOR PROCEDURE: This is a 51-year-old male, who was approximately 3 months out from a right total hip replacement. Initially, he did well and then he was in physical therapy, doing the leg lift against resistance and he felt a pop in the hip. He had limping and fluid collection and ultimately an MRI was ordered, which shows that he had gluteus medius and gluteus minimus tears as well as a defect in the iliotibial band. Nonoperative management had been exhausted and decision was made to proceed with the procedure as outlined above. The risks, benefits, and alternatives were discussed. The patient expressed understanding and consented to the procedure as outlined above. PROCEDURE: The patient was brought to the operating room. After adequate induction of spinal anesthesia by Anesthesiology, the patient was placed in the lateral decubitus position with the operative side facing up. The right lower extremity was prepped and draped in sterile fashion with ChloraPrep scrub. The old incision was opened up. This consisted of the direct lateral approach to the hip. Sharp dissection was carried out through skin and subcutaneous tissue. There was a large amount of subcutaneous fluid. There was a large defect in the iliotibial band measuring 6 cm from caudad to cephalad and 4 cm anterior to posterior. It was oval shaped. This was incorporated into an incision into the iliotibial band and the gluteus medius muscle and the gluteus minimus muscle were torn away from the greater trochanter actually the anterior probably 40% of the medius and the entire minimus. The gluteus minimus was freed up and it was not able to be brought all the way down to the bone, but it was repaired [id number] with the remnant of the intact portion of the gluteus medius. At this point in time, utilizing a [employer] whipstitch, the 5.0 FiberTape was run up from distal to proximal and proximal to distal in the medius. The torn portion of the medius was then affixed to the SwiveLock suture anchor and then this way actually the suture anchor was sunk and it was affixed to the suture anchor and suture anchor was soft to the appropriate level and then the FiberTape was then tied down with a suture. I had a very good repair of the gluteus medius was able to be obtained. The remainder of the gluteus medius was then reinforced [id number] with the intact portion of the trochanter and excellent repair was obtained. At this point in time, the sclerotic and hardened areas of the defect in the greater trochanter and the iliotibial band were debrided and then utilizing #1 FiberWire suture, the IT band was closed where the tear was utilizing 1 Tycron and remainder of the incision was closed. An excellent repair of all 3 structures was ensued. So, the wound was irrigated out with normal saline. A cocktail was injected into the soft tissues. The subcutaneous tissue was closed with 2-0 Polysorb and skin was closed with running 4-0 Monocryl suture. Skin glue was applied. Sterile dressing was applied. The patient was stable to the PACU. POSTOPERATIVE MANAGEMENT: The patient will be bedrest until a hip abduction orthosis can be obtained. He will wear a hip abduction orthosis multimedia journalist 3 months. He will be weightbearing as tolerated with that. He will receive appropriate pain medications and 24 hours of appropriate antibiotic coverage. Suman Nguyen M.D. Orthopaedic Surgery CateG:[id number] [facility] PT EDon 07-01-2017 PT ED HNO ID: [id number] Author: Kimber DavisRn) ABDULAZIZ Gold Service: (none) Author Type: Registered Nurse Type: Patient Education Filed: 07/01/2017 6:41 PM Note Text: Pt tolerating fluids. Talking with family at bedside. Will continue to monitor patient. [facility] PT ED HNO ID: [id number] Author: Veronica DavisRn) ABDULAZIZ Lang Service: Nursing Author Type: Registered Nurse Type: Patient Education Filed: 07/01/2017 2:04 PM Note Text: PRE OP LEARNING ASSESSMENT PROCEDURE/SURGERY: SURGERY: suture abductor tendon right hip READINESS TO LEARN COGNITIVE ABILITY: Alert and oriented MOTIVATION TO LEARN: Eager FAMILY SUPPORT: High - Very involved in pt care PATIENT LEARNS BEST BY: Written Instruction - Hand-outs Verbal Instruction FACTORS AFFECTING LEARNING: None PHYSICAL LIMITATIONS AFFECTING LEARNING: None Electronically Signed By: Veronica Lang RN In Department: [facility] SURGERY [facility] NURSING PROGon 06-30-2017 Protein mass conc HNO ID: [id number] Author: Winnie DavisRn) ABDULAZIZ Kraft Service: Neurosurgery Author Type: Registered Nurse Type: Nursing Progress Note Filed: 06/30/2017 2:07 PM Note Text: PACC Nurse Progress Note History AND Physical: PACC Visit Date: 06-30-17 Original HANDP Date: N/A ED visit Date: N/A Outside HANDP Scanned Date: N/A Labs Within Last 6 Months: N/A Imaging Within Last 12 Months: N/A Cardiac Testing: N/A BMI Percentile (PEDS): N/A Risk Assessment: N/A Anesthesia Review: N/A Narrative: N/A Pre-op Considerations: N/A Chart Check: COMPLETED Winnie Kraft RN June 30, 2017 2:07 PM [facility] HOSPon 06-29-2017 HOSP Patient:Sandra Boss MRN: Height:6' 0 (1.829 m) Weight:156 lb (70.761 kg) Outpatient Medications as of 07/01/17: MULTIVITAMIN WITH MINERALS (MULTIVITAMIN AND MINERAL FORMULA ORAL) traMADol (ULTRAM) 50 mg tablet Admission/Clinic Administered Medications as of 07/01/17: 0.9% NaCl 2-10 mL ceFAZolin iv piggyback 2 g in D5W (iso-osmotic) 100 mL (ANCEF) scopolamine 1 mg over 3 days 1 Patch (TRANSDERM-SCOP) scopolamine - REMOVE PATCH scopolamine - VERIFY patch Problem List: Osteoarthritis of right hip [M16.11] Pain in right hip [M25.551] Greater trochanteric bursitis of right hip [M70.61] Primary osteoarthritis of right hip [M16.11] Tear of right gluteus minimus tendon [S76.011A] Allergies: No Known Allergies Date Verified:07/01/17 Lab Values No results within the last 30 days for the following basenames: K,HCT Progress Notes (RAMIN MAYFIELD): Kenzie Enamorado [employer] [facility] 06/29/2017 10:41 AM Signed Called patient with date, time and location for pre admission testing scheduled on 06/2017 at the [facility]. Left message for patient to return my call to confirm receipt of message. Progress Notes (RAMIN MAYFIELD): Suman Nguyen Jr, MD 06/26/2017 5:19 PM Signed Ortho Hip Follow Up Note Narrative Referring Provider: [place] [id number] [facility] [id number] PCP: Rio Alanis MD ===== IMPRESSION/PLAN: Impressions indicate: ===== 51 year old male s/p Right Total Hip Replacement completed on 03/18/17. IMPRESSION: Initially the patient did very well. Then he felt a pop when he was doing a leg lift and physical therapy against resistance. He had swelling laterally in the hip. Ultimately reordered an MRI. The MRI shows a gluteus minimus tear as well as a defect in the iliotibial band. PLAN: Unfortunately, the patient is going to require surgery. We're going to have to open the incision and then the IT band and remove the medius and repair the minimus probably with suture anchors. I will then repaired the medius. I will then repair the IT band and hopefully be able to repair whatever hole store in there that resulted in the late onset fluid collection subcutaneously. Patient Reassurance: Patient reassured and supported. All questions answered. Follow up next week for surgery No X-Rays Needed ACTIVE PROBLEM LIST Osteoarthritis of Right Hip Pain in Right Hip Greater Trochanteric Bursitis of Right Hip Primary Osteoarthritis of Right Hip HPI: Sandra Boss presents today for an intermediate post-op visit. STATUS POST: Right Total Hip Replacement BMI: There is no height or weight on file to calculate BMI. Post operative recovery was complicated by An avulsion of the gluteus minimus minimus as well as a tear of the IT band. Patient rates his condition as worsening. Does the patient still experience pain? see MIDAS Form. Post Op discharge patient location: in home. Functional Assessment is as follows: has already started outpatient PT as of this visit. Functional difficulties: Prolonged standing. Pain Medication: None EXAM: POST OP HIP RIGHT POST-OPERATIVE HIP SKIN: Appropriate postop appearance, No evidence of erythema, warmth, discharge or drainage, No evidence of warmth or erythema and subcutaneous fluid is noted. Range of Motion: Pain Free Neurovascular Status: Sensation Intact, Moves foot and ankle up AND down and 2+ dorsalis pedis IMAGING: X-ray Hips: Post op None today. The surgery was discussed in great detail with the patient. We talked about the surgery and recovery period we went over the risks benefits and alternatives. I explained and doesn't have to wear an abduction orthosis for a couple months after surgery. We talked about possibility of infection and the possibility of either tibia or being irreparable. All of his questions were answered. Provider: Suman Nguyen Jr, MD Completed by: MD Kenzie Browning Jr 06/29/2017 8:03 AM Signed Addended by: KENZIE MAHMOOD on: 06/29/2017 08:03 AM Modules accepted: Orders Normal [facility] Vital Signs Date Time Vital Sign Value Performing Clinician Facility 12-31-2022 09:32-0400 SaO2% (BldA) [Mass fraction] 98 % Heriberto Carrera MD Work Phone: [facility] 12-31-2022 09:30-0400 Body height 182.9 cm Heriberto Carrera MD Work Phone: [facility] 12-31-2022 09:30-0400 Body weight 72.12 kg Heriberto Carrera MD Work Phone: [facility] 12-31-2022 09:30-0400 Diastolic blood pressure 61 mm[Hg] Heriberto Carrera MD Work Phone: [facility] 12-31-2022 09:30-0400 Heart rate 61 /min Heriberto Carrera MD Work Phone: [facility] 12-31-2022 09:30-0400 Systolic blood pressure 101 mm[Hg] Heriberto Carrera MD Work Phone: [facility] 07-16-2022 13:43-0400 SaO2% (BldA) [Mass fraction] 95 % Heriberto Carrera MD Work Phone: [facility] 07-16-2022 13:41-0400 Diastolic blood pressure 91 mm[Hg] Heriberto Carrera MD Work Phone: [facility] 07-16-2022 13:41-0400 Systolic blood pressure 120 mm[Hg] Heriberto Carrera MD Work Phone: [facility] 07-16-2022 13:38-0400 Heart rate 65 /min Heriberto Carrera MD Work Phone: [facility] 04-21-2022 14:30-0500 Body height 179.07 cm Andi Eason Other [facility] Other 04-21-2022 14:30-0500 Body temperature 97.1 [degF] Andi Eason Other [facility] Other 04-21-2022 14:30-0500 Diastolic blood pressure 82 mm[Hg] Andi Eason Other [facility] Other 04-21-2022 14:30-0500 Systolic blood pressure 129 mm[Hg] Andi Eason Other [facility] Other 12-23-2021 14:15-0400 Body height 179.07 cm Andi Eason Other [facility] Other 12-23-2021 14:15-0400 Body mass index (BMI) [Ratio] 23.34 kg/m2 Andi Eason Other [facility] Other 12-23-2021 14:15-0400 Body temperature 98.3 [degF] Andi Yumi Other [facility] Other 12-23-2021 14:15-0400 Body weight 74.84 kg Andi Eason Other [facility] Other 12-23-2021 14:15-0400 Diastolic blood pressure 81 mm[Hg] Andi Eason Other [facility] Other 12-23-2021 14:15-0400 Systolic blood pressure 120 mm[Hg] Andi Yumi Other [facility] Other 12-05-2021 14:01-0400 Diastolic blood pressure 85 mm[Hg] [employer] Anna Wanda Work Phone: [facility] 12-05-2021 14:01-0400 Heart rate 64 /min [employer] Anna Wanda Work Phone: [facility] 12-05-2021 14:01-0400 Respiratory rate 16 /min [employer] Anna Wanda Work Phone: [facility] 12-05-2021 14:01-0400 SaO2% (BldA) [Mass fraction] 99 % [employer] Anna Muñoz Work Phone: [facility] 12-05-2021 14:01-0400 Systolic blood pressure 125 mm[Hg] [employer] Anna Muñoz Work Phone: [facility] 12-05-2021 13:59-0400 Body height 182.88 cm [employer] Anna Muñoz Work Phone: [facility] 12-05-2021 13:59-0400 Body weight 74.84 kg [employer] Anna Muñoz Work Phone: [facility] 10-24-2021 15:00-0400 Body height 179.07 cm Andi Eason Other [facility] Other 10-24-2021 15:00-0400 Body mass index (BMI) [Ratio] 22.63 kg/m2 Andi Eason Other [facility] Other 10-24-2021 15:00-0400 Body temperature 98.1 [degF] Andi Eason Other [facility] Other 10-24-2021 15:00-0400 Body weight 72.58 kg Andi Eason Other [facility] Other 10-24-2021 15:00-0400 Diastolic blood pressure 93 mm[Hg] Andi Eason Other [facility] Other 10-24-2021 15:00-0400 Systolic blood pressure 129 mm[Hg] Andi Eason Other [facility] Other 09-19-2021 08:39-0400 Diastolic blood pressure 60 mm[Hg] [employer] Anna Muñoz Work Phone: [facility] 09-19-2021 08:39-0400 Heart rate 65 /min [employer] Anna Muñoz Work Phone: [facility] 09-19-2021 08:39-0400 Respiratory rate 18 /min [employer] Anna Muñoz Work Phone: [facility] 09-19-2021 08:39-0400 SaO2% (BldA) [Mass fraction] 98 % [employer] Anna Muñoz Work Phone: [facility] 09-19-2021 08:39-0400 Systolic blood pressure 99 mm[Hg] [employer] Anna Muñoz Work Phone: [facility] 09-19-2021 06:49-0400 Body height 177.8 cm [employer] Anna Muñoz Work Phone: [facility] 09-19-2021 06:49-0400 Body weight 77.11 kg [employer] Anna Muñoz Work Phone: [facility] 08-14-2021 15:15-0400 Body height 179.07 cm Andi Eason Other [facility] Other 08-14-2021 15:15-0400 Body mass index (BMI) [Ratio] 22.63 kg/m2 Andi Eason Other [facility] Other 08-14-2021 15:15-0400 Body temperature 98.8 [degF] Andi Eason Other [facility] Other 08-14-2021 15:15-0400 Body weight 72.58 kg Andi Eason Other [facility] Other 08-14-2021 15:15-0400 Diastolic blood pressure 84 mm[Hg] Andi Eason Other [facility] Other 08-14-2021 15:15-0400 Systolic blood pressure 127 mm[Hg] Andi aEson Other [facility] Other 07-29-2021 14:30-0400 Body height 179.07 cm Andi Eason Other [facility] Other 07-29-2021 14:30-0400 Body mass index (BMI) [Ratio] 22.63 kg/m2 Andi Eason Other [facility] Other 07-29-2021 14:30-0400 Body temperature 98.2 [degF] Andi Eason Other [facility] Other 07-29-2021 14:30-0400 Body weight 72.58 kg Andi Eason Other [facility] Other 07-29-2021 14:30-0400 Diastolic blood pressure 87 mm[Hg] Andi Eason Other [facility] Other 07-29-2021 14:30-0400 Systolic blood pressure 140 mm[Hg] Andi Eason Other [facility] Other Encounters Encounter Date Encounter Type Care Provider Facility Start: 07-15-2023 Refill Heriberto Carrera MD Work Phone: [facility] Comment on above: Refill Request Start: 04-17-2023 End: 04-17-2023 ambulatory SUMAN NGUYEN [facility] Start: 03-27-2023 End: 03-27-2023 Emergency department patient visit ANNA Shyanne WANDA [facility] Start: 02-02-2023 End: 02-02-2023 Emergency department patient visit LIOR RAMIREZ [facility] Start: 12-31-2022 End: 12-31-2022 ambulatory HERIBERTO CARRERA Facility:[facility] Start: 12-31-2022 End: 12-31-2022 Office outpatient visit 25 minutes Heriberto Carrera MD Work Phone: [facility] Comment on above: Parkinson's disease (HCC) (Primary Dx) Start: 11-12-2022 End: 11-13-2022 ambulatory [facility] Facility:[facility] Start: 11-03-2022 End: 11-03-2022 ambulatory [facility] Facility:[facility] Start: 08-26-2022 End: 08-27-2022 ambulatory SHIRLEY CASTILLO Facility:[facility] Start: 07-28-2022 Refill Heriberto Carrera MD Work Phone: [facility] Comment on above: Refill Request Start: 07-19-2022 End: 07-20-[address] KENYATTA GOLDSTEIN . Facility:[facility] Start: 07-16-2022 End: 07-16-2022 ambulatory [facility] Facility:[facility] Start: 07-16-2022 End: 07-16-2022 Office outpatient new 45 minutes Heriberto Carrera MD Work Phone: [facility] Comment on above: Parkinson's disease (HCC) (Primary Dx); Anxiety Start: 07-10-2022 End: 07-11-2022 ambulatory ANNA MUÑOZ Facility:[facility] Start: 07-01-2022 Telephone encounter Vicky Diaz MD Work Phone: Neurology Comment on above: External Referrals/r esources Start: 06-19-2022 End: 06-19-2022 ambulatory ANNA MUÑOZ Facility:[facility] Start: 06-17-2022 Encounter for other preprocedural examination VICKIE Garibay [facility] Start: 06-17-2022 Encounter for preprocedural cardiovascular examination VICKIE Garibay [facility] Start: 06-17-2022 Encounter for preprocedural laboratory examination VICKIE Garibay [facility] Start: 06-16-2022 End: 06-17-2022 ambulatory ANNA MUÑOZ Facility:[facility] Start: 06-16-2022 End: 06-17-2022 Encounter for preprocedural laboratory examination ANNA MUÑOZ Facility:[facility] Start: 06-04-2022 End: 06-05-2022 ambulatory Saurav Kerns Facility:[facility] Start: 04-21-2022 End: 04-21-2022 ambulatory Andi Eason Other [facility] Other Start: 04-21-2022 Office outpatient vi sit 25 minutes Andi Eason [facility] Start: 04-15-2022 End: 04-16-[address] FARRUKH OTT . Facility:[facility] Start: 03-18-2022 End: 03-19-[address] FARRUKH OTT . Facility:[facility] Start: 03-12-2022 End: 03-13-2022 ambulatory Saurav Kerns Facility:[facility] Start: 02-25-2022 End: 02-26-[address] FARRUKH OTT . Facility:[facility] Start: 01-29-2022 End: 01-30-2022 ambulatory Saurav Kerns Facility:[facility] Start: 12-23-2021 End: 12-23-2021 ambulatory Andi Eason Other [employer] Other Start: 12-23-2021 Office outpatient vi sit 25 minutes Andi Eason [facility] Start: 12-10-2021 End: 12-10-2021 ambulatory Vickie Hart Facility:[facility] Start: 12-10-2021 End: 12-10-2021 Patient encounter procedure [employer] Anna Muñoz Work Phone: [facility] [place] Start: 12-05-2021 End: 12-05-2021 ambulatory Evelin Oliver Facility:[facility] Start: 12-05-2021 End: 12-05-2021 Patient encounter procedure [employer] Anna Muñoz Work Phone: [facility] [place] [place] Start: 11-25-2021 End: 11-25-2021 ambulatory Andi Eason Other [facility] Other Start: 11-25-2021 Telephone encounter Andi MEYERS [facility] Start: 11-15-2021 End: 11-16-2021 ambulatory [facility] Facility[facility] Start: 11-14-2021 End: 11-15-2021 ambulatory ANNA WANDA Facility:[facility] Start: 11-01-2021 End: 11-02-2021 ambulatory Saurav Kerns Facility:[facility]1 Start: 10-31-2021 End: 10-31-2021 ambulatory Reid Fair Facility:[facility] Start: 10-31-2021 End: 10-31-2021 ambulatory [employer] Anna Esperanza Wanda Work Phone: [facility] Work Phone: Start: 10-31-2021 End: 10-31-2021 Discharged Recurring [employer] Anna Wanda Work Phone: [facility] [place] Start: 10-31-2021 Registered Recurring [employer] Aneta la Wanda Work Phone: [facility] [place] Start: 10-24-2021 End: 10-24-2021 ambulatory Andi Eason Other [facility] Other Start: 10-24-2021 Office outpatient vi sit 25 minutes Andi BHAKTA Infectious Disease Start: 10-18-2021 End: 10-19-2021 ambulatory VICKIE Garibay [facility][NOTE 3] Facility:[facility] Start: 10-11-2021 End: 10-12-2021 ambulatory VICKIE Garibay [facility][NOTE 3] Facility:[facility] Start: 10-04-2021 End: 10-05-2021 ambulatory Saurav Kerns Facility:[facility] Start: 09-27-2021 End: 09-28-2021 ambulatory [facility] Facility:[facility] Start: 09-25-2021 End: 09-25-2021 ambulatory Andi Eason Other [facility] Other Start: 09-25-2021 Telephone encounter Andi MEYERS [facility] Infectious Disease Start: 09-19-2021 End: 09-19-2021 ambulatory James Rodriguez Facility:[facility] Start: 09-19-2021 End: 09-19-2021 Patient encounter procedure JENNA-Danielle Muñoz Work Phone: [facility] [place] Start: 09-18-2021 End: 09-19-2021 ambulatory VICKIE HART Facility:[facility] Start: 09-18-2021 End: 09-19-2021 ambulatory SHIRLEY CASTILLO Facility:[facility] Start: 09-13-2021 End: 09-14-2021 ambulatory [facility]ibay [facility] Facility:[facility] Start: 09-06-2021 End: 09-07-2021 ambulatory Saurav Kerns Facility:[facility] Start: 08-22-2021 End: 08-22-2021 ambulatory Andi Eason Other [facility] Other Start: 08-22-2021 Telephone encounter Andi Eason FP [facility] Infectious Disease Start: 08-16-2021 End: 08-16-2021 ambulatory Andi Eason Facility:[facility] Start: 08-14-2021 End: 08-14-2021 ambulatory Andi Eason Other [facility] Other Start: 08-14-2021 Office outpatient vi sit 25 minutes Andi Eason [facility] Start: 07-29-2021 End: 07-29-2021 ambulatory Andi Eason Other [facility] Other Start: 07-29-2021 Office outpatient vi sit 25 minutes Andi Eason [facility] Start: 07-22-2021 End: 07-22-2021 ambulatory Andi Eason Facility:[facility] Start: 07-15-2021 End: 07-15-2021 ambulatory Andi Eason Facility:[facility] Start: 07-08-2021 End: 07-08-2021 ambulatory Andi Eason Facility:[facility] Start: 07-05-2021 End: 07-05-2021 ambulatory Andi Eason Facility:[facility] Start: 06-21-2021 End: 06-21-2021 ambulatory Michael Shah Other [facility] Other Start: 06-21-2021 Telephone encounter Michael Bond [facility] Start: 05-21-2021 End: 05-21-2021 ambulatory [facility] Facility:[facility] Start: 03-26-2021 End: 03-26-2021 ambulatory [facility] Facility:[facility] Start: 01-29-2021 End: 01-29-2021 ambulatory [facility] Facility:[facility] Start: 01-22-2021 End: 01-22-2021 ambulatory [facility] Facility:[facility] Start: 01-16-2021 Telephone encounter Michael Bond [facility] Start: 01-09-2021 Telephone encounter Michael Bond [facility] Start: 01-02-2021 Postop follow up vis it related to original px Michael BHAKTA [facility] Start: 01-02-2021 Telephone encounter Michael Bond [facility] Start: 04-27-2018 End: 04-28-2018 Patient encounter procedure [facility] Start: 04-20-2018 Encounter for other preprocedural examination [facility] Start: 04-20-2018 End: 04-20-2018 Patient encounter procedure [facility] Start: 07-01-2017 End: 07-02-2017 Patient encounter procedure [facility] Procedures Date Procedure Procedure Detail Performing Clinician Start: 12-10-2021 X-ray of left ankle [employer] C Anna Muñoz Work Phone: Start: 12-05-2021 XR pre/post mri xray [employer] Anna Muñoz Work Phone: Start: 12-05-2021 MRI of cervical spin e without contrast [employer] Anna Muñoz Work Phone: Start: 09-19-2021 MRI of head [employer] Madeline Muñoz Work Phone: Start: 04-20-2018 Antibody screen SUMAN NGUYEN Start: 04-20-2018 Electrocardiogram CHRISTINE NGUYEN JR Plan of Treatment Date Care Activity Detail Author Start: 12-13-2023 Influenza vaccination Influenza Vaccine (Season Ended) [facility] Start: 04-13-2023 Behavioral Health Screening Behavioral Health Screening [facility] Start: 12-12-2022 Covid-19 Vaccine ( season) Covid-19 Vaccine ( season) [facility] Start: 12-12-2022 Influenza vaccination [facility] Start: 04-13-2022 DEPRESSION ASSESSMENT DEPRESSION ASSESSMENT [facility] Start: 12-12-2021 Influenza vaccination INFLUENZA (#1) [facility] Start: 12-10-2021 End: 12-10-2021 Patient encounter procedure Departed Clinical [facility] Start: 12-10-2021 X-ray of left ankle XR ankle LT min 3V* [facility] Start: 04-28-2021 DIABETES SCREEN DIABETES SCREEN [facility] Start: 04-28-2021 Diabetes Screening Diabetes Screening [facility] Start: 2020 PROSTATE CANCER SCREENING DISCUSSION PROSTATE CANCER SCREENING DISCUSSION [facility] Start: 2020 Prostate specific antigen measurement Prostate Cancer Screening Discussion [facility] Start: 11-29-2015 SHINGRIX VACCINE (1 of 2) SHINGRIX VACCINE (1 of 2) [facility] Start: 2010 COLOGUARD (FIT-DNA) COLOGUARD (FIT-DNA) [facility] Start: 2010 Colonoscopy COLONOSCOPY [facility] Start: 2010 COLORECTAL CANCER SCREENING COLORECTAL CANCER SCREENING [facility] Start: [address] COLONOGRAPHY [facility] Start: 2010 FECAL OCCULT BLOOD FECAL OCCULT BLOOD [facility] Start: 2010 Screening for malignant neoplasm of colon [facility] Start: 2010 SIGMOIDOSCOPY SIGMOIDOSCOPY [facility] Start: 2000 Lipid 1996 panel - Serum or Plasma Lipid Screening [facility] Start: 2000 Lipid panel Lipid Screening [facility] Start: 2000 LIPID SCREEN LIPID SCREEN [facility] Start: 1984 Hepatitis B Vaccine (1 of 3 - 19+ 3-dose series) Hepatitis B Vaccine (1 of 3 - 19+ 3-dose series) [facility] Start: 1984 Urine microalbumin profile [facility] Start: 11-29-1983 HEPATITIS C SCREENING HEPATITIS C SCREENING [facility] Start: 11-29-1983 Hepatitis C screening Hepatitis C Screening [facility] Start: 11-29-1983 HIV SCREENING HIV SCREENING [facility] Start: 11-29-1983 HIV screening HIV Screening [facility] Start: 11-29-1971 PNEUMOCOCCAL (1 - PCV) PNEUMOCOCCAL (1 - PCV) [facility] Start: 11-29-1971 Pneumococcal vaccination [facility] Start: 05-31-1966 COVID-19 VACCINE (#1) COVID-19 VACCINE (#1) [facility] Start: 1965 HEPATITIS B (1 of 3 - 3-dose series) HEPATITIS B (1 of 3 - 3-dose series) [facility] Start: 1965 Hepatitis B Vaccine (1 of 3 - 3-dose series) Hepatitis B Vaccine (1 of 3 - 3-dose series) [facility] Payers Date Payer Category Payer Medicare DEVOTED MEDICARE [facility] HMO [id number] 2023-Present [phone] [address] [place] [address] O [id number] 2023 Medicare [id number] 2022 Medicaid [employer] [id number] 2022-Present [phone] [address] [place] [address] Medicaid [id number] 2021 Private Health Insurance [id number] 2021 Self-pay [id number] 1965 Unknown [id number] 2.16.840.1.382020.3.579.2. 593 1965 Unknown [id number] 2.16.840.1.697863.3.579.2. 593 1965 Unknown [id number] 2.16.840.1.602512.3.579.2. 593 1965 Unknown [id number] 2.16.840.1.095192.3.579.2. 593 1965 Unknown [id number] 2.16.840.1.718769.3.579.2. 593 1965 Unknown [id number] 2.16.840.1.851796.3.579.2. 593 1965 Unknown [id number] 2.16.840.1.605941.3.579.2. 59 1965 Unknown [id number] 2.16.840.1.473946.3.579.2. 59 1965 Unknown [id number] 2.16.840.1.592330.3.579.2. 59 1965 Unknown [id number] 2.16.840.1.309705.3.579.2. 59 1965 Unknown [id number] 2.16.840.1.351779.3.579.2. 59 1965 Unknown [id number] 2.16.840.1.136611.3.579.2. 59 1965 Unknown [id number] 2.16.840.1.992153.3.579.2. 59 1965 Unknown [id number] 2.16.840.1.668318.3.579.2. 593 1965 Unknown [id number] 2.16.840.1.410844.3.579.2. 59 1965 Unknown [id number] 2.16.840.1.408380.3.579.2. 593 1965 Unknown [id number] 2.16.840.1.688795.3.579.2. 59 1965 Unknown [id number] 2.16.840.1.633673.3.579.2. 593 1965 Unknown [id number] 2.16.840.1.948429.3.579.2. 593 1965 Unknown [id number] 2.840.1.839361.3.579.2. 593 1965 Unknown [id number] 2.840.1.092158.3.579.2. 593 1965 Unknown [id number] 2.840.1.992088.3.579.2. 593 1965 Unknown [id number] 2.840.1.152822.3.579.2. 182 1965 Unknown [id number] 2.840.1.477097.3.579.2. 182 1965 Unknown [id number] 2.0.1.621085.3.579.2. 182 1959 Medicaid [id number] .[id number] Private Health Insurance [facility] [id number] Self-pay [id number] .1.556845.19 Self-pay [id number] 05.29.830.1.567724.19 Self-pay [id number] 840.1.874940.19 Unknown [place] BC/BS [id number] Unknown Regular Insurance [id number] Unknown [id number] .0.1.754224.3.579.2. 531 Unknown [id number] .840.1.466828.3.579.2. 531 Unknown [id number] .0.1.518130.3.579.2. 531 Unknown [id number] 2.16.840.1.284632.3.579.2. 531 Unknown [id number] 2.16.840.1.638718.3.579.2. 531 Unknown [id number] 2.16.840.1.484917.3.579.2. 531 Unknown [id number] 2.16.840.1.761189.3.579.2. 531 Unknown [id number] 2.16.840.1.673768.3.579.2. 531 Unknown [id number] 2.16.840.1.333549.3.579.2. 531 Unknown [id number] 2.16.840.1.401903.3.579.2. 531 Unknown [id number] 2.16.840.1.047108.3.579.2. 531 Unknown [id number] 2.16.840.1.507827.3.579.2. 531 Unknown [id number] 2.16.840.1.226339.3.579.2. 531 Social History Date Type Detail Facility Unknown if ever smoked [facility] Other Start: 03-18-2020 End: 12-31-2022 Sex Assigned At [facility] Start: 12-05-2020 Tobacco smoking stat us TXIS Smoker (finding) [facility] Start: 1965 Sex Assigned At Male [facility] Start: 06-30-2002 End: 07-16-2022 Tobacco smoking status TXIS Smokes tobacco daily [facility] Work Phone: Start: 06-30-2002 History of tobacco use Cigarette Smo ker [facility] Work Phone: Start: 04-20-2018 End: 03-18-2020 Cigarettes smoked current (pack per day) - Reported 1 [facility] Start: 04-20-2018 End: 07-16-2022 Tobacco use and exposure Smokeless tobacco non-user [facility] Work Phone: Start: 04-27-2018 End: 12-31-2022 Alcohol intake Current non-drinker of alcohol (finding) [facility] Start: 04-20-2018 End: 07-16-2022 Tobacco Comment Currently down to 1-2 a day (04/20/18) [facility] Start: 1965 Sex Assigned At Not on file C [facility] Adult Depression Screening Assessment 2 [facility] Medical Equipment Procedure Code Equipment Code Equipment Origin al Text Equipment Identifier Dates ORIF, fracture, ankle Orthopaedic bone screw, non-bioabsorbable, non-sterile ()[id number] FDA Start: 10-09-2020 ORIF, fracture, ankle Orthopaedic bone screw, non-bioabsorbable, non-sterile ()[id number] FDA Start: 10-09-2020 ORIF, fracture, ankle Orthopaedic bone screw, non-bioabsorbable, non-sterile ()[id number] FDA Start: 10-09-2020 ORIF, fracture, ankle Orthopaedic bone screw, non-bioabsorbable, non-sterile ()[id number] FDA Start: 10-09-2020 ORIF, fracture, ankle Orthopaedic fixation plate, non-bioabsorbable, sterile ()[id number] FDA Start: 10-09-2020 ORIF, fracture, ankle Orthopaedic bone screw, non-bioabsorbable, non-sterile ()[id number] FDA Start: 10-09-2020 ORIF, fracture, ankle SCREW CORTEX 2.7MM X 40MM FDA Start: 10-23-2020 ORIF, fracture, ankle CANCELLOUS COARSE 7.5CC FDA Start: 12-05-2020 ORIF, fracture, ankle Orthopaedic bone screw, non-bioabsorbable, non-sterile ()[id number] FDA Start: 12-05-2020 ORIF, fracture, ankle Orthopaedic bone screw, non-bioabsorbable, non-sterile ()[id number] FDA Start: 12-05-2020 ORIF, fracture, ankle Orthopaedic bone screw, non-bioabsorbable, non-sterile ()[id number] FDA Start: 12-05-2020 ORIF, fracture, ankle Orthopaedic bone screw, non-bioabsorbable, non-sterile ()[id number] FDA Start: 12-05-2020 ORIF, fracture, ankle Orthopaedic bone screw, non-bioabsorbable, non-sterile ()[id number] FDA Start: 10-23-2020 ORIF, fracture, ankle Orthopaedic bone screw, non-bioabsorbable, non-sterile ()[id number] FDA Start: 10-23-2020 ORIF, fracture, ankle CANCELLOUS COARSE 7.5CC FDA Start: 12-05-2020 ORIF, fracture, ankle Orthopaedic fixation plate, non-bioabsorbable, sterile ()[id number] FDA Start: 12-05-2020 ORIF, fracture, ankle Orthopaedic fixation plate, non-bioabsorbable, sterile ()[id number] FDA Start: 10-23-2020 ORIF, fracture, ankle Orthopaedic bone screw, non-bioabsorbable, non-sterile ()[id number] FDA Start: 12-05-2020 ORIF, fracture, ankle Orthopaedic bone screw, non-bioabsorbable, non-sterile ()[id number] FDA Start: 10-23-2020 ORIF, fracture, ankle Orthopaedic bone pin, non-bioabsorbable ()[id number] FDA Start: 10-09-2020 ORIF, fracture, ankle External orthopaedic fixation system reprocessed component ()[id number] FDA Start: 10-09-2020 ORIF, fracture, ankle Orthopaedic bone screw, non-bioabsorbable, non-sterile ()[id number] FDA Start: 10-09-2020 ORIF, fracture, ankle Orthopaedic bone screw, non-bioabsorbable, non-sterile ()[id number] FDA Start: 10-23-2020 ORIF, fracture, ankle Orthopaedic bone screw, non-bioabsorbable, non-sterile ()[id number] FDA Start: 10-23-2020 ORIF, fracture, ankle Orthopaedic bone screw, non-bioabsorbable, non-sterile ()[id number] FDA Start: 10-23-2020 ORIF, fracture, ankle Orthopaedic bone screw, non-bioabsorbable, non-sterile ()[id number] FDA Start: 10-23-2020 ORIF, fracture, ankle Orthopaedic fixation plate, non-bioabsorbable, sterile ()[id number] FDA Start: 10-23-2020 ORIF, fracture, ankle Orthopaedic bone screw, non-bioabsorbable, non-sterile ()[id number] FDA Start: 10-23-2020 ORIF, fracture, ankle SCREW CORTEX 2.7MM X 40MM FDA Start: 10-23-2020 ORIF, fracture, ankle CANCELLOUS COARSE 7.5CC FDA Start: 12-05-2020 ORIF, fracture, ankle CANCELLOUS COARSE 7.5CC FDA Start: 12-05-2020 ORIF, fracture, ankle SCREW CORTEX 2.7MM X 40MM FDA Start: 10-23-2020 ORIF, fracture, ankle CANCELLOUS COARSE 7.5CC FDA Start: 12-05-2020 ORIF, fracture, ankle CANCELLOUS COARSE 7.5CC FDA Start: 12-05-2020 Sys Implant Fix W/Sl Acl/Pcl [id number] Start: 07-01-2017 [place] Healix 5. 5mm Biocryl Rapide Suture Orthocord Needle - [id number] Start: 04-27-2018 Cable Lcp 1.7mm Stainless Steel 750mm Orthopedic Crimp Cerclage Sterile - [id number] Start: 04-27-2018 Head G7 40mm Bio lox Delta Femoral Hip - [id number] Start: 03-18-2017 Shell G7 56mm F Offset Hemisphere [place] Acetabular 4 Hole Limit Hip - [id number] Start: 04-27-2018 Liner G7 E1 40mm F Neutral Acetabular Antioxidant Infused Technology - [id number] Start: 03-18-2017 Liner G7 E1 40mm F Neutral Acetabular Antioxidant Infused Technology - [id number] Start: 04-27-2018 Screw G7 6.5mm D ome 25mm Acetabular Low Profile - [id number] Start: 04-27-2018 Cable Lcp 1.7mm Stainless Steel 750mm Orthopedic Crimp Cerclage Sterile - [id number] Start: 04-27-2018 Cable Lcp 1.7mm Stainless Steel 750mm Orthopedic Crimp Cerclage Sterile - [id number] Start: 04-27-2018 Shell G7 56mm F Offset Hemisphere [place] Acetabular 4 Hole Limit Hip - [id number] Start: 03-18-2017 Stem Taperloc 13 3d 17 High Offset Taper Pps 154mm Femoral Type 1 Complete - [id number] Start: 03-18-2017 Sleeve G7 +6mm Offset Taper Biolox Delta Centering Type 1 Option Hip - [id number] Start: 03-18-2017 Sleeve G7 +3mm Offset Taper Biolox Delta Centering Type 1 Option Hip - [id number] Start: 04-27-2018 Head G7 40mm Bio lox Delta Femoral Hip - [id number] Start: 04-27-2018 Stem Taperloc 13 3d 17 High Offset Taper Pps 154mm Femoral Type 1 Complete - [id number] Start: 04-27-2018 Clinical Notes 01-02-2021 to 07-16-2023 Telephone Encounter - Briana Douglass - 07/16/2023 9:21 AM EDTPatient Heriberto Abdi MD - 12/31/2022 9:59 AM EDTTelephone Encounter - Elda Roosevelt - 07/28/2022 8:02 AM EDT Note Date & Type Note Facility 07-16-2023 Miscellaneous Notes Last appt 12/31/22 US Requested Prescriptions Pending Prescriptions Disp Refills carbidopa-levodopa (SINEMET 25-100) 25-100 mg per tablet 360 tablet 3 Sig: TAKE 1 TABLET BY MOUTH 5 TIMES DAILY (6:30 AM, 9:30 AM, 12:30 PM, 3:30 PM and 6:30 PM) documented in this encounter [facility] 12-31-2022 Note HNO ID: [id number] Author: Heriberto Carrera MD Service: ? Author Type: Physician Type: Progress Notes Filed: 01/02/2023 10:21 AM Note Text: [facility] - FOLLOW UP EVALUATION Rio Alanis MD [address] [facility] [address] [place] [address] Dear Rio Alanis MD: I had the pleasure of seeing Mr. Boss for follow-up today. As you know he is a 57 year old right-handed male with a history of tremor predominant Parkinson disease since 2016. He is seen alone. Subjective HISTORY OF PRESENT ILLNESS: During his previous visit the following plan was made: Previous plan-11/03/2022 Visit: Motor/PD - Will maintain same dose of Sinemet for now. If (after you increase the mirtazapine) - you are still experiencing night time tremor - we will consider adding in some controlled release Sinemet at bedtime to provide relief of the night time tremor. Urinary incontinence - Has had some urinary incontinence recently, which is unusual. Also - is post LLE surgery a few weeks ago. Will check UA/culture to rule out bladder infection. If the results are positive - we will send the results to your primary care provider to treat. Mood - Admitting to anxiety > depression. Started mirtazepine 1 week ago. Explained that it will take 3-6 weeks for the mirtazapine to kick in and hopefully help improve the depression. Weight loss: States recent significant unintentional weight loss. Advised to let primary care provider know about this. You are now on mirtazapine which can stimulate appetite and help you to gain weight. Patient continues to struggle when agitated. Sleep is better and tremor is not waking him up as much. At 6:30 AM tremor is very bad. Sinemet is making him nauseous. Usually takes it with toast and jam but this doesn't help. Taking with lunch and dinner doesn't seem to cause an issue. Has been starting to gain weight. No other side effects from Sinemet. Is starting to wear off 1 hour prior to next dose. Exercises daily--bicycle and walking but this is hard due to left foot problems. Movement Disorder Medication Schedule-as of the start of the visit: Medications 8 AM 12 PM 4 PM 8 PM Sinemet 25/100 1.5 1.5 1.5 1.5 Parkinson's Motor Complications Medication benefit onset: 60 minutes Medication duration: 3 hours Wearing off: yes (Comment: tremor) ALLERGIES Allergen Reactions Vancomycin Other: See Comments Current Outpatient Medications Medication Sig Acetaminophen 500 mg cap Take by mouth. mirtazapine (REMERON) 15 mg tablet Take 1 tablet by mouth daily at bedtime. Take 0.5 tablets at bedtime for 2 weeks and then increase to 1 tab and continue on that dose pregabalin (LYRICA) 25 mg capsule 50 mg three times daily. Breakfast Lunch Dinner sulfamethoxazole-trimethoprim (BACTRIM DS) 800-160 mg per tablet Take by mouth q 12 HR. IBUPROFEN ORAL Take by mouth. MULTIVITAMIN WITH MINERALS (MULTIVITAMIN AND MINERAL FORMULA ORAL) Take 1 tablet by mouth once daily. carbidopa-levodopa (SINEMET 25-100) 25-100 mg per tablet TAKE 1 TABLET BY MOUTH 5 TIMES DAILY (6:30 AM, 9:30 AM, 12:30 PM, 3:30 PM and 6:30 PM) No current facility-administered medications for this visit. Objective Physical Examination: Vital Signs: BP 101/61 (BP Site: Right Arm, BP Position: Sitting, BP Cuff Size: Regular Adult) Pulse 61 Ht 182.9 cm (6') Wt 72.1 kg (159 lb) SpO2 98% BMI 21.56 kg/m? General: Awake, alert, interactive, no acute distress, good nutritional status, normal development, well-kept Neurological Exam Mental Status Awake, alert and oriented to person, place and time. Recent and remote memory are intact. Speech is normal. Language is fluent with no aphasia. Cranial Nerves Cranial nerves normal unless stated otherwise. Motor Normal muscle bulk throughout. Strength is 5/5 throughout all four extremities. . Reflexes Right Left Brachioradialis 2+ 2+ Biceps 2+ 2+ Patellar 2+ 2+ Achilles 1+ 1+ Movement Scales: MDS-UPDRS Motor subscale condition of exam Medication Off/On/Naiive ON Time of UPDRS 1019 Time of Last Medication 0800 Last Medication Taken Sinemet 25/100 1.5 tabs DBS Right N/A DBS Left N/A MDS-UPDRS Motor subscale scores Speech 1-Slight. Loss of modulation, diction or volume, but still all words easy to understand. Facial Expression 2-Mild. In addition to decreased eye-blink frequency, Masked facies present in the lower face as well, namely fewer movements around the mouth, such as less spontaneous smiling, but lips not parted. Rigidity Neck 2-Mild. Rigidity detected without the activation maneuver, but full range of motion is easily achieved. Rigidity Right Upper Extremity 3-Moderate. Rigidity detected without the activation maneuver. Full range of motion is achieved with effort. Rigidity Left Upper Extremity 2-Mild. Rigidity detected without the activation maneuver, but full range of motion is eas (more content not included)... [facility] 12-31-2022 Instructions Heriberto Carrera MD - 12/31/2022 10:05 AM EDT It was a pleasure to see you today. We addressed the following diagnoses: Parkinson's disease (hcc) (primary encounter diagnosis) My recommendations are as follows: 12/31/2022 Visit: Please increase Sinemet to 5 times a day. Try to take it with a protein bar, ensure or milkshake. If this is tolerated we can gradually increase Sinemet to 2 tabs at a time Future considerations: Rytary, deep brain stimulation Please continue your excellent exercise regimen Referral to Movement Disorder Psychology for Cognitive Behavior Therapy Virtual visit in 6-8 weeks Movement Disorders Medication Schedule: Medications 6:30 AM 9:30 AM 12:30 PM 3:30 PM 6:30 PM Sinemet 25/100 mg 1.5 1.5 1.5 1.5 1.5 If there are any concerns before your next visit, please call or you can send a message through [employer] [facility] [employer]. You can also now schedule and select appointments through [employer] [facility] [employer]. Heriberto Carrera MD documented in this encounter [facility] 12-31-2022 History of Presen t illness Narrative [facility] - FOLLOW UP EVALUATION Rio Alanis MD [address] [facility] [address] [facility] [address] Dear Rio Alanis MD: I had the pleasure of seeing Mr. Boss for follow-up today. As you know he is a 57 year old right-handed male with a history of tremor predominant Parkinson disease since 2016. He is seen alone. Subjective HISTORY OF PRESENT ILLNESS: During his previous visit the following plan was made: Previous plan-11/03/2022 Visit: Motor/PD - Will maintain same dose of Sinemet for now. If (after you increase the mirtazapine) - you are still experiencing night time tremor - we will consider adding in some controlled release Sinemet at bedtime to provide relief of the night time tremor. Urinary incontinence - Has had some urinary incontinence recently, which is unusual. Also - is post LLE surgery a few weeks ago. Will check UA/culture to rule out bladder infection. If the results are positive - we will send the results to your primary care provider to treat. Mood - Admitting to anxiety > depression. Started mirtazepine 1 week ago. Explained that it will take 3-6 weeks for the mirtazapine to kick in and hopefully help improve the depression. Weight loss: States recent significant unintentional weight loss. Advised to let primary care provider know about this. You are now on mirtazapine which can stimulate appetite and help you to gain weight. Patient continues to struggle when agitated. Sleep is better and tremor is not waking him up as much. At 6:30 AM tremor is very bad. Sinemet is making him nauseous. Usually takes it with toast and jam but this doesn't help. Taking with lunch and dinner doesn't seem to cause an issue. Has been starting to gain weight. No other side effects from Sinemet. Is starting to wear off 1 hour prior to next dose. Exercises daily--bicycle and walking but this is hard due to left foot problems. Movement Disorder Medication Schedule-as of the start of the visit: Medications 8 AM 12 PM 4 PM 8 PM Sinemet 25/100 1.5 1.5 1.5 1.5 Parkinson's Motor Complications Medication benefit onset: 60 minutes Medication duration: 3 hours Wearing off: yes (Comment: tremor) ALLERGIES Allergen Reactions Vancomycin Other: See Comments Current Outpatient Medications Medication Sig Acetaminophen 500 mg cap Take by mouth. mirtazapine (REMERON) 15 mg tablet Take 1 tablet by mouth daily at bedtime. Take 0.5 tablets at bedtime for 2 weeks and then increase to 1 tab and continue on that dose pregabalin (LYRICA) 25 mg capsule 50 mg three times daily. Breakfast Lunch Dinner sulfamethoxazole-trimethoprim (BACTRIM DS) 800-160 mg per tablet Take by mouth q 12 HR. IBUPROFEN ORAL Take by mouth. MULTIVITAMIN WITH MINERALS (MULTIVITAMIN & MINERAL FORMULA ORAL) Take 1 tablet by mouth once daily. carbidopa-levodopa (SINEMET 25-100) 25-100 mg per tablet TAKE 1 TABLET BY MOUTH 5 TIMES DAILY (6:30 AM, 9:30 AM, 12:30 PM, 3:30 PM and 6:30 PM) No current facility-administered medications for this visit. Objective Physical Examination: Vital Signs: BP 101/61 (BP Site: Right Arm, BP Position: Sitting, BP Cuff Size: Regular Adult) Pulse 61 Ht 182.9 cm (6') Wt 72.1 kg (159 lb) SpO2 98% BMI 21.56 kg/m General: Awake, alert, interactive, no acute distress, good nutritional status, normal development, well-kept Neurological Exam Mental Status Awake, alert and oriented to person, place and time. Recent and remote memory are intact. Speech is normal. Language is fluent with no aphasia. Cranial Nerves Cranial nerves normal unless stated otherwise. Motor Normal muscle bulk throughout. Strength is 5/5 throughout all four extremities. . Reflexes Right Left Brachioradialis 2+ 2+ Biceps 2+ 2+ Patellar 2+ 2+ Achilles 1+ 1+ Movement Scales: MDS-UPDRS Motor subscale condition of exam Medication Off/On/Naiive ON Time of UPDRS 1019 Time of Last Medication 0800 Last Medication Taken Sinemet 25/100 1.5 tabs DBS Right N/A DBS Left N/A MDS-UPDRS Motor subscale scores Speech 1-Slight. Loss of modulation, diction or volume, but still all words easy to understand. Facial Expression 2-Mild. In addition to decreased eye-blink frequency, Masked facies present in the lower face as well, namely fewer movements around the mouth, such as less spontaneous smiling, but lips not parted. Rigidity Neck 2-Mild. Rigidity detected without the activation maneuver, but full range of motion is easily achieved. Rigidity Right Upper Extremity 3-Moderate. Rigidity detected without the activation maneuver. Full range of motion is achieved with effort. Rigidity Left Upper Extremity 2-Mild. Rigidity detected without the activation maneuver, but full range of motion is easily achieved. Rigidity Right Lower Extremity 2-Mild. Rigidity detected without the activation maneuver, but full range of motion is easily achieved. Rigidity Left Lower Extremity 3-Moderate. Rigidity detected without the activation maneuver. Full range of motion is achieved with effort. Finger Taps Right 1-Slight. a) the regular rhythm is broken with one or two interruptions or hesitations of the tapping movement, b) slight slowing, c) the amplitude decrements near the end of the 10 taps. Finger Taps Left 2-Mild. a) 3 to 5 interruptions during tapping, b) mild slowing, c) the amplitude decrements midway in the 10-tap sequence. Hand Movements Right 2-Mild. a) 3 to 5 interruptions during the movements, b) mild slowing, c) the amplitude decrements midway in the task. Hand Movements Left 2-Mild. a) 3 to 5 interruptions during the movements, b) mild slowing, c) the amplitude decrements midway in the task. Arm Movements Right 1-Slight. a) the regular rhythm is broken with one or two interruptions or hesitations of the movement, b) slight slowing, c) the amplitude decrements near the end of the sequence. Arm Movements Left 2-Mild. a) 3 to 5 interruptions during the movements, b) mild slowing, c) the amplitude decrements midway in the sequence. Toe Taps Right 1-Slight. a) the regular rhythm is broken with one or two interruptions or hesitations of the tapping movement, b) slight slowing, c) the amplitude decrements near the end of the ten taps. Toe Taps Left 4-Severe. Cannot or can only barely perform the task because of slowing, interruptions or decrements. (Has hard fixed boot on LLE) Leg Agility Right 2-Mild. a) 3 to 5 interruptions during the movements, b) mild slowness, c) the amplitude decrements midway in the task. Leg Agility Left 3-Moderate. a) more than 5 interruptions during the movement or at least one longer arrest (freeze) in ongoing movement, b) moderate slowing in speed, c) amplitude decrements after the first tap. (Has hard fixed boot on LLE) Arise From Chair 2-Mild. Pushes self up from arms of chair without difficulty. Gait 2-Mild. Independent walking but with substantial gait impairment. Gait Freezing 0-Normal. No freezing. Posture Stability 0-Normal. No problems: recovers with one or two steps. Posture 0-Normal. No problems. Body Bradykinesia 3-Moderate. Moderate global slowness and poverty of spontaneous movements. Postural Tremor Hand Right 2-Mild. Tremor is at least 1 but less than 3 cm in amplitude. Postural Tremor Hand Left 2-Mild. Tremor is at least 1 but less than 3 cm in amplitude. Kinetic Tremor Right 2-Mild. Tremor is at least 1 but less than 3 cm in amplitude. Kinetic Tremor Left 2-Mild. Tremor is at least 1 but less than 3 cm in amplitude. Rest Tremor Amplitude Right Upper Extremity 2-Mild. > 1 cm but < 3 cm in maximal amplitude. Rest Tremor Amplitude Left Upper Extremity 3-Moderate. 3 - 10 cm in maximal amplitude. Rest Tremor Amplitude Right Lower Extremity 0-Normal. No tremor. Rest Tremor Amplitude Left Lower Extremity 0-Normal. No tremor. Rest Tremor Amplitude Lip/Jaw 2-Mild. > 1 cm but < 2 cm in maximal amplitude. Rest Tremor Constancy 4-Severe. Tremor at rest is present > 75% of the entire examination period. MDS-UPDRS Motor subscale totals Left Total 25 Right Total 18 Midline Total 14 Tremor Total / 10 19 PIGD Total / 3 2 Overall Total 61 % Change Compared to Last Filed Total Movement Disorders Cognitive and Motor Biomeasures: Processing Speed Test Total Number Correct:39; Z Score: -0.13 Visual Memory Test Raw Score: 26; Z Score: -1.46 Manual Dexterity Test (max = 180 secs) Left Hand Time: 39.48; Right Hand Time: 31.74; Average Z Score: Walking Speed Test (25 foot walk): Time: 8.66; Z Score: *Z score interpretation: higher than -1.5 is within normal; -1.5 to -2.0 represents mild impairment; lower than -2.0 represents significant impairment Assessment Mr. Boss is a right-handed 57 year old male with Parkinson disease responding to Sinemet in addition to restless leg syndrome. Has been doing reasonably well overall with motor fluctuations becoming a significant problem. This has necessitated an increase to 5 times daily dosing. If this proves inadequate will need to consider DBS versus Rytary. Also continues to have significant anxiety and will benefit from CBT. The following are the current problems noted and addressed during this visit: Parkinson's disease (hcc) (primary encounter diagnosis) Plan 12/31/2022 Visit: Please increase Sinemet to 5 times a day. Try to take it with a protein bar, ensure or milkshake. If this is tolerated we can gradually increase Sinemet to 2 tabs at a time Future considerations: Rytary, deep brain stimulation Please continue your excellent exercise regimen Referral to Movement Disorder Psychology for Cognitive Behavior Therapy Virtual visit in 6-8 weeks Interested in clinical research? Not currently Updated Movement Disorder Medication Schedule: Medications 6:30 AM 9:30 AM 12:30 PM 3:30 PM 6:30 PM Sinemet 25/100 mg 1.5 1.5 1.5 1.5 1.5 Thank you for allowing me to be part of the clinical care of this patient! I look forward to continued participation in the patient s care with you. Please do not hesitate to call with any questions. Sincerely, Heriberto Carrera MD Associate Staff [facility] documented in this encounter [facility] 11-12-2022 Note HNO ID: [id number] Author: Suma Teran PA-C Service: ? Author Type: Physician Striker Off Type: Progress Notes Filed: 11/17/2022 12:48 PM Note Text: [facility] - FOLLOW UP EVALUATION Rio Alanis [address] [address] Dear Rio Alanis: I had the pleasure of seeing Mr. Boss for follow-up today. As you know he is a 56 year old right-handed male with a history of since . Subjective Previous Plan-11/03/2022 Visit: Start Remeron 15 mg. Take 7.5 mg at nighttime for 2 weeks then increase to 15 mg and continue on that dose Continue same dose of Sinemet Follow up with PCP for urinary urgency In person appointment Interval History: Patient is seen today for a routine visit; last visit was with Dr. Carrera on 11/03. Per Sandra - there was some difficulties with the VV technology at this time. She states that he experiences increased bothersome tremor in the setting of increasing anxiety. Also states he continues to lose weight - states he has lost approximately 23 lbs in 3 months (states 06/16 ws 173 lbs; in on October 21 at his pre-op for foot surgery wt was 150.3 lbs). Admits to reduced appetite. States he has not yet notified his PCP regarding this due to being busy with his foot issues. 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 States he tries to keep himself active - lifting weights, walking, spending time with grandchild. Wearing off sign: Return of tremor. States he is also wearing off at night and states tremor impedes sleep. Movement Disorders Medications Schedule - as of the start of the visit: Medications 8 AM 12 PM 4 PM 8 PM Sinemet 1.5 1.5 1.5 1.5 Parkinson's Motor Complications Medication benefit onset: 60 minutes Medication duration: 3 hours Wearing off: yes (Comment: tremor) Questionnaires: In addition, the following non-motor symptoms and palliative concerns were evaluated: Sleep/Fatigue: REM sleep behavior disorder: No Restless Legs Syndrome: Yes Mild at night Leg swelling: Impaired sense of smell: Cognition: Cognitive impairment: yes Impaired STM MoCA Cognitive assessment: Hallucinations and delusions: no Apathy: no Impulse control disorder: Palliative Concerns: Caregiver burden: Spiritual concerns: Advanced directives on file: Palliative services: Therapy and Exercise: Last PT Date: Last OT Date: Date: Exercises Regularly: Yes Walks, hike; is hard to exercise aerobically because of his LLE In addition, the following Parkinson-associated features were evaluated: Daily activities Difficulties with eating: No Difficulties in dressing: Yes: Slower Difficulties with hygiene activities: Yes: Takes longer Difficulties with handwriting: Yes: Difficulties with doing hobbies and other activities: Yes: Takes longer but can do (fishing, camping, walking, hiking) Difficulties turning in bed: Yes: Difficulties getting out of bed, car or chair: Yes: Able to do but takes longer Tremors/Gait/Balance Shaking or tremors: Yes: Mostly LUE Walking and balance problems: Yes: Attributed to PD and his LLE issue Number of falls in the Last Month: No Gait freezing: Yes: Occasionally Autonomic/Pain Lightheadeness on standing: Yes: denies LOC Urinary problems: Yes: had 2 accidents this AM Constipation problems: No Pain and other sensations: Yes: LLE pain (especially with walking) Speech/Swallowing Speech problems: No Drooling: Yes: At night Chewing and swallowing problems: No Sleep/Fatigue Problems sleeping at night: Yes: Falls asleep OK but states wakes up around 1-2am with tremor; will then lay on his arm - can sometimes get back to sleep, other times not. States he started mirtazapine 1/2 tab at night 1 week ago - noting some sleep improvements - feels he is getting into deeper sleep Daytime sleepiness: No Fatigue: No REM sleep behavior disorder: No Restless Legs Syndrome: Yes Mood/Behavior/Cognition Cognitive impairment: yes Impaired STM No Data Recorded Hallucinations and delusions: no Apathy: no Depression: Yes - occasionally Anxiety: Yes Finally, the following table shows the patient's overall global physical and mental health using the PROMIS scale relative to the previous visit: PROMIS-10 Flowsheet Row [facility] from 11/03/2022 in [facility] Visit from 07/16/2022 in [facility] Global Physical Health T Score 39.8 42.3 Global Mental Health T Score 43.5 43.5 0-10 Standard Pain Scale 3 3 *PROMIS-10 scoring scale: mean = 50, over 50 is above average, under 50 is below average ALLERGIES Allergen Reactions Vancomycin Other: See Comments Current Outpatient Medication (more content not included)... [facility] 11-03-2022 Note HNO ID: [id number] Author: Heriberto Carrera MD Service: ? Author Type: Physician Type: Progress Notes Filed: 11/05/2022 11:28 AM Note Text: [facility] - FOLLOW UP EVALUATION Rio Alanis [address] [address] Dear Rio Alanis: I had the pleasure of seeing Mr. Boss for follow-up today. As you know he is a 56 year old right-handed male with a history of since . He is seen alone. We had a visit using: Telephone I have communicated my name and active licensure. The patient's identity and physical location were verified at the time of this visit. Either the patient or their legal payable representative has been informed of the risks and benefits of -- and alternatives to -- treatment through a remote evaluation and consents to proceed with the evaluation remotely. Subjective HISTORY OF PRESENT ILLNESS: During his previous visit the following plan was made: Previous plan-07/16/2022 Visit: Please start taking Fiber gummies on a daily basis Please start taking your evening dose of Lyrica 1 hour before you go into bed After 1 week please increase Sinemet to 1.5 tablets three times a day. You can go more slowly if this is not tolerated Please have your ferritin levels repeated At this point please send me a [employer] message so we can discuss future steps Try to exercise regularly as this has evidence for slowing down Parkinson disease. Aerobic exercise is preferred (i.e. low resistance fast reps 30-40 minutes a day, 4 or more times per week). Suggested activities: recumbent exercise bike or elliptical. Follow up with me in 3 months via virtual visit Tremor is bothersome. Comes and goes and he can't seem to get control of them. They still come at bedtime and stopping him from sleeping. Come on more severely when irritated. Sinemet is wearing off early, lasting 3 hours at the most and then tremor starts to come back. Has lost 25 pounds since we last met. Questionnaires: In addition, the following areas that may be affected by abnormal involuntary movements were evaluated: Daily activities Difficulties with eating: Yes (mild) Difficulties in dressing: Difficulties with hygiene activities: Yes (slight) Difficulties with handwriting: Yes (slight) Difficulties with doing hobbies and other activities: Yes (slight) Difficulties turning in bed: Yes (slight) Difficulties getting out of bed, car or chair: Yes (slight) Tremors/Gait/Balance Shaking or tremors: Yes (mild) Walking and balance problems: Yes (slight) Number of falls in the Last Month: 2 times Gait freezing: Autonomic/Pain Lightheadeness on standing: Yes (moderate) Urinary problems: Yes (moderate) Constipation problems: Yes (slight) Pain and other sensations: Yes (severe) Speech/Swallowing Speech problems: 0 (none) Drooling: Yes (mild) Chewing and swallowing problems: Yes (slight) Sleep/Fatigue Sleep problems: Yes (moderate) Daytime sleepiness: Yes (mild) Fatigue: Yes (moderate) Mood/Behavior Depression: PHQ-9 Score: 9 usually representing mild (5-9) depression. Anxiety: JUAN CARLOS-7 Total Score: 11 usually representing moderate (10-14) anxiety. Finally, the following table shows the patient's overall global physical and mental health using the PROMIS scale: PROMIS-10 Flowsheet Row Distance Health from 11/03/2022 in [facility] Visit from 07/16/2022 in [facility] Global Physical Health T Score 39.8 42.3 Global Mental Health T Score 43.5 43.5 0-10 Standard Pain Scale 3 3 *PROMIS-10 scoring scale: mean = 50, over 50 is above average, under 50 is below average Movement Disorders Medications Schedule - as of the start of the visit: Medications 8 AM 12 PM 4 PM 8 PM Sinemet 1.5 1.5 1.5 0.5 ALLERGIES Allergen Reactions Vancomycin Other: See Comments Current Outpatient Medications Medication Sig mirtazapine (REMERON) 15 mg tablet Take 1 tablet by mouth daily at bedtime. Take 0.5 tablets at bedtime for 2 weeks and then increase to 1 tab and continue on that dose carbidopa-levodopa (SINEMET 25-100) 25-100 mg per tablet TAKE 1 TABLET BY MOUTH 4 TIMES DAILY (8 AM, NOON, 4 PM, 8 PM) pregabalin (LYRICA) 25 mg capsule Lyrica Active sulfamethoxazole-trimethoprim (BACTRIM DS) 800-160 mg per tablet Take by mouth q 12 HR. IBUPROFEN ORAL Take by mouth. MULTIVITAMIN WITH MINERALS (MULTIVITAMIN AND MINERAL FORMULA ORAL) Take 1 tablet by mouth once daily. No current facility-administered medications for this visit. Objective Physical Examination: General: Awake, alert, interactive, no acute distress, good nutritional status, normal development, well-kept Neurological Examination: Awake, alert, oriented. Able to connect to virtual platform and provide an accurate history Cranial nerves grossly intact Able to move extremities spontaneously without any apparent weakness No bradykinesia o (more content not included)... [facility] 08-26-2022 Note PROCEDURE: XR FOOT L T MIN 3 VIEWS COMPARISON: 07/19/2022 HISTORY: Pain in left foot FINDINGS: BONES:No acute fracture or dislocation. Fusion of the first second and third toes with a distal proximal screw. Second screw across the first distal interphalangeal joint. Hallux valgus. Shave osteotomy medial head of the first metatarsal. Ankle fusion partially visualized. Likely remote resection head of the fifth proximal phalanx SOFT TISSUES:Negative. No visible soft tissue swelling. EFFUSION:None visible. OTHER: Negative. IMPRESSION: Stable postsurgical and degenerative changes Electronically authenticated by: SHIRLEY CASTILLO Date: 2022-08-26 10:49 [facility] 07-28-2022 Miscellaneous Notes Request from patient requesting refill. Please E-Scribe to Ean. Last OV: 07/16/22 with US Future OV: None Requested Prescriptions Pending Prescriptions Disp Refills carbidopa-levodopa (SINEMET 25-100) 25-100 mg per tablet 360 tablet 3 Sig: TAKE 1 TABLET BY MOUTH 4 TIMES DAILY (8 AM, NOON, 4 PM, 8 PM) Elda Kimble documented in this encounter [facility] 07-19-2022 Note PROCEDURE: XR FOOT L T MIN 3 VIEWS HISTORY: Pain in left foot ; open draining wound from fifth toe COMPARISON: XR foot left 07/10/2022 FINDINGS: BONES:Mechanical fusion of the interphalangeal joints of the first, second, third toes via a longitudinally placed lag screws. No hardware fracture or evidence of loosening. No bone fracture or dislocation. No appreciable cortical destruction involving the bones of the fifth toe. Prior mechanical fusion of the ankle joint and hindfoot; stable. SOFT TISSUES:No visible soft tissue swelling. EFFUSION:None visible. OTHER: Negative. IMPRESSION: 1. No findings to suggest osteomyelitis of the fifth toe. 2. Mechanical fusion of the first through fourth toes. 3. Stable ankle and hindfoot fusion with stable, chronic anterior migration of the locking calcaneal screw. Electronically authenticated by: SAURAV KERNS Date: 2022-07-19 12:12 [facility] 07-16-2022 Note HNO ID: [id number] Author: Heriberto Carrera MD Service: ? Author Type: Physician Type: Progress Notes Filed: 07/24/2022 3:16 PM Note Text: [facility] - NEW PATIENT EVALUATION Primary Care Provider: Rio Alanis MD [address] [address] Dear Rio Alanis MD: I had the pleasure of evaluating Mr. Boss in our clinic today. As you know he is a 56 year old right-handed male who presents for evaluation of since . He is seen . Subjective HISTORY OF PRESENT ILLNESS: Initial HPI Patient presents for management of Parkinson disease with tremor going back to around 2015 and started Sinemet in January 2022. Tremors get very severe at nighttime. Is taking Sinemet 4 times a day which is not sufficient. Wears off in 2.5 hours or so. Does do quite well while it is working. Was given amantadine which kept him awake and entacapone which caused severe gastric upset. His nighttime symptoms appear to bother him the most and these are suppressible to some extent, with an urge to move when he suppresses and relief upon movement and walking. Has not taken a higher dose of Sinemet during the day. Sinemet does give him cramps and constipation, for which he takes docusate as needed. Also endorses hyposmia. Does not think he snores. Questionnaires: In addition, the following areas that may be affected by abnormal involuntary movements were evaluated: Daily activities Difficulties with eating: Yes (mild) Difficulties in dressing: Yes (slight) Difficulties with hygiene activities: Yes (slight) Difficulties with handwriting: Yes (slight) Difficulties with doing hobbies and other activities: Yes (slight) Difficulties turning in bed: Yes (slight) Difficulties getting out of bed, car or chair: Yes (slight) Tremors/Gait/Balance Shaking or tremors: Yes (mild) Walking and balance problems: Yes (slight) Number of falls in the Last Month: No falls Gait freezing: Yes (slight) Autonomic/Pain Lightheadeness on standing: Yes (mild) does not seem to get worse with Sinemet/amantadine Urinary problems: Yes (slight) Constipation problems: Yes (slight) Pain and other sensations: Yes (mild) Speech/Swallowing Speech problems: Yes (mild) Droolin (none) Chewing and swallowing problems: 0 (none) Sleep/Fatigue Sleep problems: Yes (severe) mostly due to tremor and joint pain Daytime sleepiness: Yes (mild) Fatigue: Yes (slight) Mood/Behavior Depression: PHQ-9 Score: 11 usually representing moderate (10-14) depression. Anxiety: JUAN CARLOS-7 Total Score: 7 usually representing mild (5-9) anxiety. Finally, the following table shows the patient's overall global physical and mental health using the PROMIS scale: PROMIS-10 Flowsheet Row Office Visit from 07/16/2022 in [facility] T Score 42.3 Global Mental Health T Score 43.5 0-10 Standard Pain Scale 3 *PROMIS-10 scoring scale: mean = 50, over 50 is above average, under 50 is below average Review of Systems Constitutional: Positive for fatigue. HENT: Negative. Eyes: Negative. Respiratory: Negative. Cardiovascular: Negative. Gastrointestinal: Positive for abdominal pain and constipation. Genitourinary: Negative. Hematologic/Lymphatic: Negative. Allergic/Immunologic: Negative. Musculoskeletal: Positive for arthralgias and back pain. Skin: Negative. ALLERGIES Allergen Reactions Vancomycin Other: See Comments Current Outpatient Medications Medication Sig carbidopa-levodopa (SINEMET 25-100) 25-100 mg per tablet TAKE 1 TABLET BY MOUTH 4 TIMES DAILY (8 AM, NOON, 4 PM, 8 PM) pregabalin (LYRICA) 25 mg capsule Lyrica Active sulfamethoxazole-trimethoprim (BACTRIM DS) 800-160 mg per tablet Take by mouth q 12 HR. IBUPROFEN ORAL Take by mouth. MULTIVITAMIN WITH MINERALS (MULTIVITAMIN AND MINERAL FORMULA ORAL) Take 1 tablet by mouth once daily. No current facility-administered medications for this visit. Past Medical and Surgical History: has a past medical history of OA (osteoarthritis) of hip (2017) and Tobacco use. has a past surgical history that includes appendectomy (1989's); shoulder arthroscopy/surg (Right, 1999's); arthrp acetblr/prox fem prostc agrft/algrft (Right, 03/18/2017); and past surgical history of (Right, 06/2017). Social History Tobacco Use Smoking status: Every Day Packs/day: 1.00 Years: 15.00 Pack years: 15.00 Types: Cigarettes Start date: 06/30/2002 Smokeless tobacco: Never Tobacco comments: Currently down to 1-2 a day (04/20/18) Substance Use Topics Alcohol use: No Drug use: No Family History: family history includes Dementia in his father; None in his mother. In addition, the patient denies any family history of PD/parkinsonism, tremor, other involuntary movement disorders. Objective Physical Examination: Vital Signs: BP 120/91 (BP Site: Left Arm, BP Position: Sitt (more content not included)... [facility] 07-16-2022 Instructions Heriberto Carrera MD - 07/16/2022 2:51 PM EDT It was a pleasure to see you today. Here is a reminder of the plan we made: 07/16/2022 Visit: Please start taking Fiber gummies on a daily basis Please start taking your evening dose of Lyrica 1 hour before you go into bed After 1 week please increase Sinemet to 1.5 tablets three times a day. You can go more slowly if this is not tolerated Please have your ferritin levels repeated At this point please send me a [employer] message so we can discuss future steps Try to exercise regularly as this has evidence for slowing down Parkinson disease. Aerobic exercise is preferred (i.e. low resistance fast reps 30-40 minutes a day, 4 or more times per week). Suggested activities: recumbent exercise bike or elliptical. Follow up with me in 3 months via virtual visit documented in this encounter [facility] 07-16-2022 History of Presen t illness Narrative [facility] - NEW PATIENT EVALUATION Primary Care Provider: Rio Alanis MD [id number] [id number] Dear Rio Alanis MD: I had the pleasure of evaluating Mr. Boss in our clinic today. As you know he is a 56 year old right-handed male who presents for evaluation of since . He is seen . Subjective HISTORY OF PRESENT ILLNESS: Initial HPI Patient presents for management of Parkinson disease with tremor going back to around 2015 and started Sinemet in January 2022. Tremors get very severe at nighttime. Is taking Sinemet 4 times a day which is not sufficient. Wears off in 2.5 hours or so. Does do quite well while it is working. Was given amantadine which kept him awake and entacapone which caused severe gastric upset. His nighttime symptoms appear to bother him the most and these are suppressible to some extent, with an urge to move when he suppresses and relief upon movement and walking. Has not taken a higher dose of Sinemet during the day. Sinemet does give him cramps and constipation, for which he takes docusate as needed. Also endorses hyposmia. Does not think he snores. Questionnaires: In addition, the following areas that may be affected by abnormal involuntary movements were evaluated: Daily activities Difficulties with eating: Yes (mild) Difficulties in dressing: Yes (slight) Difficulties with hygiene activities: Yes (slight) Difficulties with handwriting: Yes (slight) Difficulties with doing hobbies and other activities: Yes (slight) Difficulties turning in bed: Yes (slight) Difficulties getting out of bed, car or chair: Yes (slight) Tremors/Gait/Balance Shaking or tremors: Yes (mild) Walking and balance problems: Yes (slight) Number of falls in the Last Month: No falls Gait freezing: Yes (slight) Autonomic/Pain Lightheadeness on standing: Yes (mild) does not seem to get worse with Sinemet/amantadine Urinary problems: Yes (slight) Constipation problems: Yes (slight) Pain and other sensations: Yes (mild) Speech/Swallowing Speech problems: Yes (mild) Droolin (none) Chewing and swallowing problems: 0 (none) Sleep/Fatigue Sleep problems: Yes (severe) mostly due to tremor and joint pain Daytime sleepiness: Yes (mild) Fatigue: Yes (slight) Mood/Behavior Depression: PHQ-9 Score: 11 usually representing moderate (10-14) depression. Anxiety: JUAN CARLOS-7 Total Score: 7 usually representing mild (5-9) anxiety. Finally, the following table shows the patient's overall global physical and mental health using the PROMIS scale: PROMIS-10 Flowsheet Row Office Visit from 07/16/2022 in [facility] T Score 42.3 Global Mental Health T Score 43.5 0-10 Standard Pain Scale 3 *PROMIS-10 scoring scale: mean = 50, over 50 is above average, under 50 is below average Review of Systems Constitutional: Positive for fatigue. HENT: Negative. Eyes: Negative. Respiratory: Negative. Cardiovascular: Negative. Gastrointestinal: Positive for abdominal pain and constipation. Genitourinary: Negative. Hematologic/Lymphatic: Negative. Allergic/Immunologic: Negative. Musculoskeletal: Positive for arthralgias and back pain. Skin: Negative. ALLERGIES Allergen Reactions Vancomycin Other: See Comments Current Outpatient Medications Medication Sig carbidopa-levodopa (SINEMET 25-100) 25-100 mg per tablet TAKE 1 TABLET BY MOUTH 4 TIMES DAILY (8 AM, NOON, 4 PM, 8 PM) pregabalin (LYRICA) 25 mg capsule Lyrica Active sulfamethoxazole-trimethoprim (BACTRIM DS) 800-160 mg per tablet Take by mouth q 12 HR. IBUPROFEN ORAL Take by mouth. MULTIVITAMIN WITH MINERALS (MULTIVITAMIN & MINERAL FORMULA ORAL) Take 1 tablet by mouth once daily. No current facility-administered medications for this visit. Past Medical and Surgical History: has a past medical history of OA (osteoarthritis) of hip (2016) and Tobacco use. has a past surgical history that includes appendectomy (); shoulder arthroscopy/surg (Right, 1999'); arthrp acetblr/prox fem prostc agrft/algrft (Right, 03/18/2017); and past surgical history of (Right, 06/2017). Social History Tobacco Use Smoking status: Every Day Packs/day: 1.00 Years: 15.00 Pack years: 15.00 Types: Cigarettes Start date: 06/30/2002 Smokeless tobacco: Never Tobacco comments: Currently down to 1-2 a day (04/20/18) Substance Use Topics Alcohol use: No Drug use: No Family History: family history includes Dementia in his father; None in his mother. In addition, the patient denies any family history of PD/parkinsonism, tremor, other involuntary movement disorders. Objective Physical Examination: Vital Signs: BP 120/91 (BP Site: Left Arm, BP Position: Sitting, BP Cuff Size: Regular Adult) Pulse 65 SpO2 95% Sitting: BP 120/91 Pulse Standing: BP 134/115 Pulse 76 General: Awake, alert, interactive, no acute distress, good nutritional status, normal development, well-kept Neurological Exam Mental Status Awake, alert and oriented to person, place and time. Recent and remote memory are intact. Speech is normal. Language is fluent with no aphasia. Attention and concentration are normal. Fund of knowledge is appropriate for level of education. Cranial Nerves CN II: Visual acuity is normal. Visual faye full to confrontation. CN III, IV, : Extraocular movements intact bilaterally. Normal lids and orbits bilaterally. Pupils equal round and reactive to light bilaterally. CN V: Facial sensation is normal. CN VII: Full and symmetric facial movement. CN VIII: Hearing is normal. CN IX, X: Palate elevates symmetrically. Normal gag reflex. CN XI: Shoulder shrug strength is normal. CN XII: Tongue midline without atrophy or fasciculations. Motor Normal muscle bulk throughout. Strength is 5/5 throughout all four extremities. Sensory Normal to light touch, temperature and vibration. Reflexes Right Left Brachioradialis 2+ 2+ Biceps 2+ 2+ Triceps 2+ 2+ Patellar 2+ 2+ Achilles 2+ 2+ Movement Scales: MDS-UPDRS Motor subscale condition of exam Medication Off/On/Naiive OFF Time of UPDRS 1432 Time of Last Medication 1130 Last Medication Taken Sinemet 25-100 mg 1 tab DBS Right N/A DBS Left N/A MDS-UPDRS Motor subscale scores Speech 2-Mild. Loss of modulation, diction, or volume, with a few words unclear, but the overall sentences easy to follow. Facial Expression 2-Mild. In addition to decreased eye-blink frequency, Masked facies present in the lower face as well, namely fewer movements around the mouth, such as less spontaneous smiling, but lips not parted. Rigidity Neck 3-Moderate. Rigidity detected without the activation maneuver. Full range of motion is achieved with effort. Rigidity Right Upper Extremity 3-Moderate. Rigidity detected without the activation maneuver. Full range of motion is achieved with effort. Rigidity Left Upper Extremity 3-Moderate. Rigidity detected without the activation maneuver. Full range of motion is achieved with effort. Rigidity Right Lower Extremity 3-Moderate. Rigidity detected without the activation maneuver. Full range of motion is achieved with effort. Rigidity Left Lower Extremity 4-Severe. Rigidity detected without the activation maneuver and full range of motion not achieved. Finger Taps Right 2-Mild. a) 3 to 5 interruptions during tapping, b) mild slowing, c) the amplitude decrements midway in the 10-tap sequence. Finger Taps Left 2-Mild. a) 3 to 5 interruptions during tapping, b) mild slowing, c) the amplitude decrements midway in the 10-tap sequence. Hand Movements Right 2-Mild. a) 3 to 5 interruptions during the movements, b) mild slowing, c) the amplitude decrements midway in the task. Hand Movements Left 2-Mild. a) 3 to 5 interruptions during the movements, b) mild slowing, c) the amplitude decrements midway in the task. Arm Movements Right 1-Slight. a) the regular rhythm is broken with one or two interruptions or hesitations of the movement, b) slight slowing, c) the amplitude decrements near the end of the sequence. Arm Movements Left 2-Mild. a) 3 to 5 interruptions during the movements, b) mild slowing, c) the amplitude decrements midway in the sequence. Toe Taps Right 1-Slight. a) the regular rhythm is broken with one or two interruptions or hesitations of the tapping movement, b) slight slowing, c) the amplitude decrements near the end of the ten taps. Toe Taps Left 4-Severe. Cannot or can only barely perform the task because of slowing, interruptions or decrements. Leg Agility Right 2-Mild. a) 3 to 5 interruptions during the movements, b) mild slowness, c) the amplitude decrements midway in the task. Leg Agility Left 3-Moderate. a) more than 5 interruptions during the movement or at least one longer arrest (freeze) in ongoing movement, b) moderate slowing in speed, c) amplitude decrements after the first tap. Arise From Chair Gait Gait Freezing Posture Stability Posture Body Bradykinesia Postural Tremor Hand Right 2-Mild. Tremor is at least 1 but less than 3 cm in amplitude. Postural Tremor Hand Left 2-Mild. Tremor is at least 1 but less than 3 cm in amplitude. Kinetic Tremor Right 1-Slight. Tremor is present but less than 1cm in amplitude. Kinetic Tremor Left 2-Mild. Tremor is at least 1 but less than 3 cm in amplitude. Rest Tremor Amplitude Right Upper Extremity 3-Moderate. 3 - 10 cm in maximal amplitude. Rest Tremor Amplitude Left Upper Extremity 2-Mild. > 1 cm but < 3 cm in maximal amplitude. Rest Tremor Amplitude Right Lower Extremity 2-Mild. > 1 cm but < 3 cm in maximal amplitude. Rest Tremor Amplitude Right Lower Extremity 0-Normal. No tremor. Rest Tremor Amplitude Lip/Jaw 0-Normal. No tremor. Rest Tremor Constancy 4-Severe. Tremor at rest is present > 75% of the entire examination period. MDS-UPDRS Motor subscale totals Left Total 26 Right Total 22 Midline Total Tremor Total / 10 18 PIGD Total / 3 Overall Total % Change Compared to Last Filed Total Movement Disorders Cognitive and Motor Biomeasures: Processing Speed Test Total Number Correct:44; Z Score: 0.36 Visual Memory Test Raw Score: 26; Z Score: -1.48 Manual Dexterity Test (max = 180 secs) Left Hand Time: 40.05; Right Hand Time: 28.87 Walking Speed Test (25 foot walk): *Z score interpretation: higher than -1.5 is within normal; -1.5 to -2.0 represents mild impairment; lower than -2.0 represents significant impairment Assessment Mr. Boss is a right-handed 56 year old male with Parkinson disease responding to Sinemet in addition to restless leg syndrome. Has been doing reasonably well overall with motor fluctuations becoming a significant problem. Part of his symptoms are due to restless leg syndrome, which seems not to have been discriminated, and trial of medication for this is likely to make a difference. He also started with a low dose of Sinemet. The following are the current problems noted and addressed during this visit: Anxiety Parkinson's disease (hcc) (primary encounter diagnosis) Plan 07/16/2022 Visit: Please start taking Fiber gummies on a daily basis Please start taking your evening dose of Lyrica 1 hour before you go into bed After 1 week please increase Sinemet to 1.5 tablets three times a day. You can go more slowly if this is not tolerated Please have your ferritin levels repeated At this point please send me a [employer] message so we can discuss future steps Try to exercise regularly as this has evidence for slowing down Parkinson disease. Aerobic exercise is preferred (i.e. low resistance fast reps 30-40 minutes a day, 4 or more times per week). Suggested activities: recumbent exercise bike or elliptical. Follow up with me in 3 months via virtual visit Interested in clinical research? Not currently Updated Movement Disorder Medication Schedule: Medications 8 AM 12 PM 4 PM 8 PM Sinemet 1 1 1 0.5 Thank you for allowing me to be part of the clinical care of this patient! I look forward to continued participation in the patient s care with you. Please do not hesitate to call with any questions. Sincerely, Heriberto Carrera MD Associate Staff [facility] documented in this encounter [facility] 07-10-2022 Note PROCEDURE: XR FOOT L T MIN 3 VIEWS COMPARISON: 06/19/2022 HISTORY: Pain in left foot FINDINGS: BONES:Stable fusion of the first through fourth distal toes using 2 cannulated screws. No acute fracture, dislocation or mechanical failure. Stable ankle fusion using a retrograde intramedullary nail and distally. The distal screw extends beyond the cortical margin of the inferior midfoot. Mild hallux valgus with shave osteotomy medial head of the first metatarsal SOFT TISSUES:Negative. No visible soft tissue swelling. EFFUSION:None visible. OTHER: Negative. IMPRESSION: Stable degenerative and postsurgical changes Electronically authenticated by: SHIRLEY CASTILLO Date: 2022-07-10 15:59 [facility] 07-01-2022 Miscellaneous Notes Records reviewed. Recommend movement disorders neurology consult. Junaid Bey PA-C Received outside medical records for patient to be seen in [facility]. Records uploaded into [facility]. Would you be able to triage please? Thank you, Delores documented in this encounter [facility] 06-05-2022 Note PROCEDURE: XR ANKLE LT MIN 3 V, XR FOOT LT MIN 3 VIEWS HISTORY: Pain of left ankle joint ; flexion of the toes COMPARISON: XR left ankle 03/12/2022 FINDINGS: BONES:Mechanical fusion of the ankle joint and hindfoot via intramedullary steffi and locking screws. Stable appearance of calcaneal locking screw with distal tip extending well into the plantar soft tissues. Persistent, marked flexion of the toes on all images. SOFT TISSUES:No visible soft tissue swelling. EFFUSION:None visible. OTHER: Negative. IMPRESSION: 1. Stable surgical changes of the ankle and hindfoot fusion. No appreciable further migration of distal locking screw. Electronically authenticated by: SAURAV KERNS Date: 2022-06-05 08:24 [facility] 06-05-2022 Note PROCEDURE: XR ANKLE LT MIN 3 V, XR FOOT LT MIN 3 VIEWS HISTORY: Pain of left ankle joint ; flexion of the toes COMPARISON: XR left ankle 03/12/2022 FINDINGS: BONES:Mechanical fusion of the ankle joint and hindfoot via intramedullary steffi and locking screws. Stable appearance of calcaneal locking screw with distal tip extending well into the plantar soft tissues. Persistent, marked flexion of the toes on all images. SOFT TISSUES:No visible soft tissue swelling. EFFUSION:None visible. OTHER: Negative. IMPRESSION: 1. Stable surgical changes of the ankle and hindfoot fusion. No appreciable further migration of distal locking screw. Electronically authenticated by: SAURAV KERNS Date: 2022-06-05 08:24 [facility] 04-21-2022 Evaluation note Encounter Date Diagnosis Assessment Notes Apr, MSSA (methicillin susceptible Staphylococcus aureus) infection (ICD-10 - A49.01) Refill given on Bactrim. Patient expressed his frustration over the ongoing discomfort he has. Given his main complaint is discomfort and pain not sure how much I can offer him. I do not see any signs of active infection. We will order some baseline labs such as BNP and CRP today. Previous values were fine. Patient was just started on Lyrica what sounds to be a lower dose but asked the patient to go over this dose with Dr. Rodriguez from neurology to see if this dose could be increased without interfering with his other Parkinson's medications. Also gave patient information on [facility] who can compound topical pain formulations that may help given patient's concerns. In the meantime refill on Bactrim given. We will see patient again in 3 months. Apr, Infection associated with internal fixation device of bone of lower extremity, subsequent encounter (ICD-10 - T84.629D) [facility] Other 01-03-2023 NoteCONSULTATION CONSULTATION DATE: 04/15/2022 CHIEF COMPLAINT: Left ankle pain, left foot pain, left big toe contracture. HISTORY OF PRESENT ILLNESS: This is a very pleasant, 56-year-old gentleman, who unfortunately has undergone two separate traumatic events with a complicated left leg fracture and healing process, and simultaneously being diagnosed with fairly advanced Parkinson's. The patient was seen two visits ago, where he had requested for his leg to be amputated. Currently, the patient reports significant improvement in the overall pain, 3-4/10. Sitting down mitigates the pain, as does elevating the leg. Standing, walking, housework, activities, ADLs aggravate the patient's pain. The patient has difficulty in his sleep. The patient takes Motrin, Lyrica 75 mg daily, alendronate 70 mg. The patient has been seen by Daryl Null with regards to his Parkinson's. The patient's PAST MEDICAL HISTORY / SURGICAL HISTORY / REVIEW OF SYSTEMS are noted on the chart, along with the MEDICATION LIST / ALLERGIES and RADIOLOGICAL IMAGES. PHYSICAL EXAM: Upon physical examination, this is a pleasant, rather anxious, frustrated, 56-year-old gentleman who is mourning loss. VITAL SIGNS: 157/84 with a heart rate of 89. At a height of 6', the patient weighs 76 kg. FOCUSED EVALUATION OF THE LEFT LEG: Significant improvement in the coloration is noted. Decreased hyperemia and decreased venous congestion is present. The patient has decreased swelling in the leg. Ankle range of motion has improved. Along the lateral aspect of his leg, there is still deep sulci and scar tissue entrapment or partial entrapment along the nerve. Patient's main focus was his left big toe. The patient has had significant improvement in the middle interphalangeal joint. Passively we can abduct the toe. Also, the contracture and rotational aspect has improved substantially. The contracture is still present, and the patient finds this to be significantly disruptive. IMPRESSION: We had a long discussion with the patient. 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 PLAN: After a significant amount of counseling and encouragement to the patient, and after having spoken to Dr. Hart, we will proceed with three following steps: 1. The patient will be seen earlier than anticipated in Dr. Hart's office for the possibility of a Z-plasty along the flexion contracture of the big toe. 2. The patient will be sent to the [facility] with regards to Parkinson's treatment and education. 3. [facility] has been suggested to Mr. Boss with regards to the grieving process with the current diagnosis that the patient has. The patient understands, is hopeful and would like to proceed. These matters were discussed with Dr. Hart. CC Anna Muñoz, RECORD CHANGER Vickie Gutierrez, [facility]12-06-2022 NoteCONSULTATION CONSULTATION DATE: 03/18/2022 CHIEF COMPLAINT: Left foot pain. HISTORY OF PRESENT ILLNESS: This is a very pleasant, 56-year-old gentleman who is status post multiple podiatric surgeries of the left leg, subsequent to traumatic injury. The patient was seen in the office on 02/25/2022, where we had performed trigger point injections x6 in his left lower extremity. This has afforded the patient improvement. The patient continues to have discomfort and pain, rates it as a 4/10, a sharp pain. Twisting, pushing, transitioning, lifting, climbing stairs aggravate the patient's pain. The patient unfortunately has also been diagnosed with Parkinson's which is complicating the patient's recovery. The patient currently takes ibuprofen on a p.r.n. basis, Lyrica 75 mg q.p.m., Epsom salt soaks, Vitamin D3, alendronate 70 mg on a weekly basis. The patient has increased his activity level. He reports having 80+% improvement for a day and then gradually the pain has returned. The patient reports overall, however, he is noticing more areas of pathology; however, the intensity appears to be diminished. The patient's PAST MEDICAL HISTORY / SURGICAL HISTORY / REVIEW OF SYSTEMS are noted on the chart along with the MEDICATION LIST / ALLERGIES and RADIOLOGICAL IMAGES. PHYSICAL EXAM: Upon physical examination, this is a pleasant, cooperative gentleman, who appears to be significantly more comfortable than the last visit, where he was requesting amputation of his left leg, which he still is considering at this time. VITAL SIGNS: Stable at 120/80, with a heart rate of 78. At a height of 6', the patient weighs 79 kg. FOCUSED EVALUATION OF THE LEFT LOWER EXTREMITY: The eschar is improved substantially. Spasming is still noted along the anterior tibialis and along the medialis. The patient's left great toe is flexed and rotated laterally. The vasomotor changes have improved substantially compared to the baseline of his initial visit. IMPRESSION: Current working diagnosis on the patient is left foot lower extremity pain, status post left ankle fracture and fusion, scar tissue complication, post recovery chronic pain, history of Parkinson's. PLAN: The patient is to continue applying the lidocaine and the Salonpas with lidocaine patch. We will perform trigger point injections along the extensors and flexors of his foot, along the interossei, along the medial digit #1 on the left hand side. The patient was given options. The three options are: 1. A conservative option, which is what we are looking to proceed forward with, which would be to salvage as much of the tissue as we can. 2. At that point, should it not be sufficient enough, the patient would be a candidate for possibly a peripheral stim. 3. Would be the last possibility, which would be amputation of his left lower extremity. The patient has been educated with regards to the thought process and a step-garcia manner. The patient has also been afforded a possibility of another consult should he decide to proceed further. The patient understands and would like to proceed. For today, we will look to proceed with the trigger point injections along the extensor and abductors and evertors of the foot. The patient understands and would like to proceed.[id number] NoteCONSULTATION PROCEDURE DATE: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 [place] [address] Referring Neurology 05/26/22 Goals (unrecognized section and content) Goals may be documented in a n alternate section Source Comments (unrecognize d section and content) In the event this informatio n is protected by the Federal Confidentiality of Alcohol and Drug Abuse Patient Records regulations: The Federal rules restrict any use of the information to criminally investigate or prosecute any alcohol or drug abuse patient.[facility] the event this information is protected by the Federal Confidentiality of Alcohol and Drug Abuse Patient Records regulations: The Federal rules restrict any use of the information to criminally investigate or prosecute any alcohol or drug abuse patient.[facility] the event this information is protected by the Federal Confidentiality of Alcohol and Drug Abuse Patient Records regulations: The Federal rules restrict any use of the information to criminally investigate or prosecute any alcohol or drug abuse patient.[facility] the event this information is protected by the Federal Confidentiality of Alcohol and Drug Abuse Patient Records regulations: The Federal rules restrict any use of the information to criminally investigate or prosecute any alcohol or drug abuse patient.[facility] the event this information is protected by the Federal Confidentiality of Alcohol and Drug Abuse Patient Records regulations: The Federal rules restrict any use of the information to criminally investigate or prosecute any alcohol or drug abuse patient.[facility] FOR RECORDS PERTAINING TO PATIENTS WHO ARE OR HAVE BEEN ENROLLED IN A CHEMICAL DEPENDENCY/SUBSTANCEABUSE PROGRAM, SOME INFORMATION MAY BE OMITTED. This clinical summary was aggregated from multiple sources. Caution should be exercised in using it in the provision of clinical care. This summary normalizes information from multiple sources, and as a consequence, information in this document may materially change the coding, format and clinical context of patient data. In addition, data may be omitted in some cases. CLINICAL DECISIONS SHOULD BE BASED ON THE PRIMARY CLINICAL RECORDS. [facility]. provides no warranty or guarantee of the accuracy or completeness of information in this document.
== END 2023-07-20 08:39 | disposition home or self-care (01) ==
LOC: PST 08:38
PROVIDERS: PCP Nurse Practitioner Family; Visit Provider Podiatrist Foot & Ankle Surgery
DX: Z01.818 Encounter for other preprocedural examination (principal); T84.84XA Pain due to internal orthopedic prosthetic devices, implants and grafts, initial encounter; L03.032 Cellulitis of left toe

== ENCOUNTER 2023-07-23 09:30 | Day surgery (SDC) | payer OTHER, SELFPAY ==
[2023-07-23] VITALS (20 sets, daily range): BP systolic 98–148; BP diastolic 66–96; PULSE 56–77; TEMP 36.3–36.4; O2SAT 95–100; BMI 21.5
--- NOTE | 2023-07-23 | FL_ITS ---
[address] [address] Patient Name: SANDRA CHRISTIAN MRN: [id number] date: 1965 Sex: M Assigned Patient Location: [facility] Current Patient Location: [facility] Accession/Order Number: [id number] Exam Date: 07/23/2023 13:14 Report Date: 07/24/2023 08:12 At the request of: VICKIE HART Procedure: FL fluoroscopy <1hr NON-READ EXAM: FL fluoroscopy <1hr NON-READ HISTORY: TECHNIQUE: FINDINGS: Please see Operative Report. Electronically authenticated by: RADIOLOGIST NO Date: 07/24/2023 08:12
--- NOTE | 2023-07-23 09:59 | PC.NURSE ---
patient has tremors to both hands r/t parkinsons
[2023-07-23 10:07] LABS: Glucometer 94 mg/dL (74-106)
[2023-07-23] MEDS: LACTATED RINGER'S SOLUTION 1,000 ML 50 ML IV ×2 (10:09→13:23)
[2023-07-23] MEDS: CEFAZOLIN SODIUM/DEXTROSE,ISO 2 GM/50 ML PIGGYBACK IV (11:41)
--- NOTE | 2023-07-23 11:45 | ECG_ITS ---
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
[2023-07-23] MEDS: BUPIVACAINE HCL 0.5% PF 50 MG/10 ML VIAL 20 ML INJ (13:12)
--- NOTE | 2023-07-23 13:40 | XR_ITS ---
The [address] [address] Patient Name: SANDRA CHRISTIAN MRN: [id number] date: 1965 Sex: M Assigned Patient Location: [facility] Current Patient Location: Accession/Order Number: [id number] Exam Date: 07/23/2023 14:20 Report Date: 07/24/2023 07:32 At the request of: VIOLA MALDONADO Procedure: XR foot LT min 3V PROCEDURE: XR foot LT min 3V HISTORY: postop xr pacu COMPARISON: XR foot left 06/18/2023 FINDINGS: BONES:Mechanical fusion of first toe interphalangeal joint via single screw which represents revision since prior study. New amputation of the second third toes at level of mid diaphysis of the proximal phalanx. Prior amputation of fourth and 5th toes at level of proximal interphalangeal joint. Prior bunionectomy. Prior mechanical fusion of the ankle joint and hindfoot without appreciable change in hardware and screw placement. SOFT TISSUES:Small amount of free air within distal dorsal soft tissues consistent with recent surgery. EFFUSION:None visible. OTHER: Negative. XR/XR foot LT min 3V IMPRESSION: 1. Postoperative changes as detailed above. Electronically authenticated by: SAURAV KERNS Date: 07/24/2023 07:32
[2023-07-23 14:04] LABS: Glucometer 100 mg/dL (74-106)
[2023-07-23] MEDS: HYDROMORPHONE HCL 0.5 MG/0.5 ML SYRINGE IV ×2 (14:08→14:26)
[2023-07-23] MEDS: HYDROCODONE/ACET 5-325 MG TABLET 2 TAB PO (14:48)
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
== END 2023-07-23 15:27 | disposition home or self-care (01) ==
PROVIDERS: PCP Nurse Practitioner Family; Visit Provider Podiatrist Foot & Ankle Surgery
PROC: (CPT 1170; principal; 2023-07-23 10:00)
DX: T84.84XA Pain due to internal orthopedic prosthetic devices, implants and grafts, initial encounter (principal); L03.032 Cellulitis of left toe; Z79.82 Long term (current) use of aspirin; Z79.899 Other long term (current) drug therapy; G20.A1 Parkinson's disease without dyskinesia, without mention of fluctuations; F17.210 Nicotine dependence, cigarettes, uncomplicated; M19.172 Post-traumatic osteoarthritis, left ankle and foot; Z96.649 Presence of unspecified artificial hip joint
CPT/HCPCS: 20680; 28292; 28825 ×2; 36415; 73630; 76000; 82948; 88304; 88311; 93005; J1094; J1170; J2704

== ENCOUNTER 2024-06-21 08:48 | Outpatient (OUT) | payer OTHER, SELFPAY ==
--- NOTE | 2024-06-21 | XR_ITS ---
The [address] [address] Patient Name: SANDRA CHRISTIAN MRN: [id number] date: 1965 Sex: M Assigned Patient Location: Current Patient Location: Accession/Order Number: [id number] Exam Date: 06/21/2024 10:56 Report Date: 06/21/2024 11:00 At the request of: KAR RAPHAEL Procedure: XR ankle LT min 3V LEFT ANKLE - 3 views CLINICAL DATA: Left ankle pain and lateral wound. Previous surgery COMPARISON: 06/18/2023 AP, lateral and oblique views were obtained. There is osteopenia. There is a steffi extending from the proximal to mid shaft of the tibia through the foot to the plantar aspect of the calcaneus. There are tibial and calcaneal interlocking screws. There is mild deformity at the tibia which is chronic. There is previous osteotomy at the distal fibula. There is no interval change in appearance of the bony structures of the imaged foot and ankle. There is no acute fracture, dislocation or bony destruction. There is a small defect within the soft tissues at the lateral ankle which is presumed to relate to the reported ulcer. No other soft tissue abnormalities are seen. XR/XR ankle LT min 3V IMPRESSION: STABLE APPEARANCE OF THE BONY STRUCTURES AND POSTOPERATIVE CHANGES AT THE ANKLE. Impression dictated by: Winnie Carvalho M.D.06/21/2024 11:00 AM Dictation Location: [place] [address] Electronically authenticated by: [id number] Y Date: 06/21/2024 11:00
--- NOTE | 2024-06-21 | XR_ITS ---
The [address] [address] Patient Name: SANDRA CHRISTIAN MRN: [id number] date: 1965 Sex: M Assigned Patient Location: Current Patient Location: Accession/Order Number: [id number] Exam Date: 06/21/2024 10:25 Report Date: 06/21/2024 10:30 At the request of: KAR RAPHAEL Procedure: XR foot LT min 3V LEFT FOOT - 4 views CLINICAL DATA: Left heel pain. Lateral ankle wound. Previous surgeries COMPARISON: 07/23/2023 Weightbearing AP, lateral, tangential calcaneal and oblique views were obtained. Bony structures are osteopenic. There is redemonstration of a screw through the distal interphalangeal joint of the first toe. Lateral deviation of the toe and prior bunionectomy are again noted. There is old amputation of the remaining digits at the level of the proximal phalanx. There is redemonstration of fusion at the ankle with a steffi through the tibia down to the plantar aspect of the calcaneus where horizontal screws are seen. There is no developing fracture, dislocation or bony destruction. There are no significant soft tissue abnormalities. XR/XR foot LT min 3V IMPRESSION: STABLE POSTOPERATIVE CHANGES AND APPEARANCE OF THE BONY STRUCTURES OF THE FOOT Impression dictated by: Winnie Carvalho M.D.06/21/2024 10:30 AM Dictation Location: [place] [address] Electronically authenticated by: [id number] Y Date: 06/21/2024 10:30
== END 2024-06-21 08:49 | disposition home or self-care (01) ==
LOC: WC 08:48
PROVIDERS: PCP Nurse Practitioner Family; Visit Provider Physician Assistant
DX: M79.672 Pain in left foot (principal); M25.572 Pain in left ankle and joints of left foot; Z98.890 Other specified postprocedural states; L98.9 Disorder of the skin and subcutaneous tissue, unspecified; L60.0 Ingrowing nail
CPT/HCPCS: 10061; 73610; 73630

== ENCOUNTER 2024-07-05 08:48 | Outpatient (OUT) | payer OTHER, SELFPAY | END 2024-07-05 08:49 | disposition home or self-care (01) | LOC: WC 08:48 | PROVIDERS: PCP Nurse Practitioner Family; Visit Provider Physician Assistant | DX: L98.9 Disorder of the skin and subcutaneous tissue, unspecified (principal); L60.0 Ingrowing nail | CPT/HCPCS: G0463 ==

== ENCOUNTER 2024-07-12 09:20 | Outpatient (OUT) | payer OTHER, SELFPAY | END 2024-07-12 09:21 | disposition home or self-care (01) | LOC: WC 09:20 | PROVIDERS: PCP Nurse Practitioner Family; Visit Provider Podiatrist Foot & Ankle Surgery | DX: L98.9 Disorder of the skin and subcutaneous tissue, unspecified (principal) | CPT/HCPCS: G0463 ==

== ENCOUNTER 2024-07-21 12:22 | Outpatient (OUT) | payer OTHER, SELFPAY ==
--- NOTE | 2024-07-21 12:29 | ECG_ITS ---
The [facility] Test Date: 2024-07-21 Pat Name: SANDRA CHRISTIAN Department: Room: - Gender: Male Presentation Team Member: : 1965 Requested By: VICKIE HART Order Number: [id number] Casie MD: PATRICK HAM M.D. Measurements Intervals [place] Rate: 66 P: 73 IA: 132 QRS: 63 QRSD: 98 T: 66 QT: 385 QTc: 406 Interpretive Statements SINUS RHYTHM Normal ECG Compared to ECG 07/23/2023 09:57:33 No significant changes Electronically Signed On 07-22-2024 5:17:16 EDT by PATRICK HAM M.D.
--- OUTSIDE RECORDS SUMMARY | 2024-07-21 12:32 | XMS_ITS | CCD ---
Author Organization [facility] Care Team Providers Care Private Duty Rn Name Role Phone SUMAN NGUYEN JR Admitting Unavailable SUMAN NGUYEN JR Attending Unavailable SUMAN NGUYEN JR Referring Unavailable KATE MUELLER (NANCIE) Referring Unava ilable SUMAN NGUYEN JR Admitting Unavailable SUMAN NGUYEN JR Attending Unavailable Michael Shah Unavailable Andi Eason Unavailable JALYN Muñoz Primary Care Provider DO James Rodriguez Attending Provider EDE Fair Attending Provider [phone] NANCIE Oliver Attending Provider EDE Hart Attending Provider JALYN Muñoz Primary Care Provider Rio Alanis Primary Care Provider Princess Che PA-C Unavailable ANNA MUÑOZ Primary Care Unavailable SHIRLEY CASTILLO V Consulting Unavailable KAR RAPHAEL Admitting Unavailable KAR RAPHAEL Attending Unavailable KAR RAPHAEL Consulting Unavailable DR KENYATTA WALTON Admitting Unavailable ANGELITA Nick, DR YOU Attending Unavailable ANNA MUÑOZ Primary Care Unavailable DR KENYATTA WALTON Consulting Unavailable Saurav Kerns Consulting Unavailable NADTAY, DR GINNA Hart Consulting Unavailable ADY .PAN Consulting Unavailable DIAB ., AFTAB Consulting Unavailable ANNA MUÑOZ Primary Care Unavailable VICKIE HART Attending Unavailable VICKIE HART Consulting Unavailable VICKIE HART Admitting Unavailable SEB GRAVES Consulting Unavailable WEST, SHIRLEY Sapp Consulting Unavailable [facility], [facility] Primary Care Unavailable IJEOMAKAR Admitting Unavailable IJEOMA, KAR Attending Unavailable IJEOMAKAR Consulting Unavailable WANDA, [facility] Primary Care Unavailable HIGHLANDER, PETER D Admitting Unavailable Zimadisoner, Saurav Consulting Unavailable HIGHLANDER, PETER D Attending Unavailable HIGHLANDER, PETER D Consulting Unavailable KahlilerSaurav Consulting Unavailable HIGHLANDER, PETER D Attending Unavailable HIGHLANDER, PETER D Admitting Unavailable HIGHLANDER, PETER D Consulting Unavailable WANDA, [facility] Primary Care Unavailable HIGHLANDER, PETER D Consulting Unavailable HIGHLANDER, PETER D Attending Unavailable HIGHLANDER, PETER D Admitting Unavailable KARLA MANZANO Consulting Unavailable ADY ., PAN MATTHEW Consulting Unavailable MIO, CANDICE Consulting Unavailable CHE II, CLARE Consulting Unavailable OTT ., DR FARRUKH Kimble Admitting Unavailable WANDA, ANNA Primary Care Unavailable [facility], DR REID Consulting Unavailable OTT ., DR FARRUKH Kimble Attending Unavailable OTT ., DR FARRUKH Kimble Consulting Unavailable HIGHLANDER, PETER D Admitting Unavailable HIGHLANDER, PETER D Attending Unavailable KahlilerSaurav Consulting Unavailable HIGHLANDER, PETER D Admitting Unavailable HIGHLANDER, PETER D Attending Unavailable HIGHLANDER, PETER D Consulting Unavailable HIGHLANDER, PETER D Attending Unavailable HIGHLANDER, PETER D Admitting Unavailable HIGHLANDER, PETER D Admitting Unavailable HIGHLANDER, PETER D Attending Unavailable KahlilerSaurav Consulting Unavailable HIGHLANDER, PETER D Admitting Unavailable HIGHLANDER, PETER D Attending Unavailable HIGHLANDER, PETER D Consulting Unavailable HIGHLANDER, PETER D Admitting Unavailable HIGHLANDER, PETER D Attending Unavailable HIGHLANDER, PETER D Admitting Unavailable HIGHLANDER, PETER D Attending Unavailable KahlilerSaurav Consulting Unavailable WANDA, [facility] Primary Care Unavailable HIGHLANDER, PETER D Attending Unavailable HIGHLANDER, PETER D Admitting Unavailable HIGHLANDER, PETER D Consulting Unavailable OTT ., DR FARRUKH Kimble Admitting Unavailable WANDA, [facility] Primary Care Unavailable OTT ., DR FARRUKH Kimble Attending Unavailable OTT ., DR FARRUKH Kimble Consulting Unavailable KahlilerSaurav Consulting Unavailable WANDA, [facility] Primary Care Unavailable HIGHLANDER, PETER D Attending Unavailable HIGHLANDER, PETER D Admitting Unavailable HIGHLANDER, PETER D Consulting Unavailable [facility] Consulting Unavailable HIGHLANDER, PETER D Attending Unavailable HIGHLANDER, PETER D Admitting Unavailable HIGHLANDER, PETER D Consulting Unavailable KahlilerSaurav Consulting Unavailable HIGHLANDER, PETER D Attending Unavailable HIGHLANDER, PETER D Admitting Unavailable VICKIE HART Consulting Unavailable NAMRATA ., DR FARRUKH Kimble Consulting Unavailable WANDA, ANNA Primary Care Unavailable NAMRATA ., DR FARRUKH Kimble Admitting Unavailable VICKIE HART Referring Unavailable NAMRATA ., DR FARRUKH Kimble Attending Unavailable VICKIE HART Attending Unavailable VICKIE HART Admitting Unavailable WANDA, ANNA Kimble Primary Care Unavailable LIOR RAMIREZ Attending Unavailable SUMAN NGUYEN Referring Unavailable ANNA MUÑOZ Primary Care Unavailable EDE Hart Attending Provider Vickie Hart Attending Unavailable Vickie Hart Admitting Unavailable Rio Alanis Primary Care Provider Clare Brandt DO Primary Care Provider Clare Brandt DO Attending Provider RIO ALANIS Primary Care Unavailab CLAIR Rizvi Referring Unavailable RIO ALANIS Primary Care Unavailab CLAIR Rizvi Referring Unavailable HERIBERTO CARRERA Attending Unavailable RIO ALAINS Primary Care Unavailab miranda SELF Referring Unavailable CLAIR AMAYA Attending Unavailable Allergies Allergy Classification Reported Allergen(s) Allergy Type Date of Onset Reaction(s) Facility Glycopeptides (antibiotic) (1 source) Vancomycin Drug Allergy 2 Other: See Comments [facility] (20 sources) Vancomycin; Translations: [VANCOMYCIN] Drug Allergy 2 Other: See Comments [facility] (1 source) Vancomycin Drug Allergy 2 [facility] Medications Current Medications Medication Drug Class(es) Dates Sig (Normalized) Sig (Original) acetaminophen 500 mg oral capsule (20 sources) Start: 12-26-2020 Acetaminophen 500 MG 1 capsule as needed Orally every 6-8 hrs Dec, Active Start: 12-26-2020 Acetaminophen 500 MG 1 capsule as needed Orally every 6-8 hrs Dec, Active Start: 10-23-2020 Acetaminophen 500 mg cap Take by mouth. 10/23/2020 Active Start: 10-23-2020 take 1000 mg by mout h every eight hours Acetaminophen Active 1000 MG PO Q8H 180 October 23, 2020 12:00am Start: 07-02-2017 End: 05-02-2024 take 2 tablets by mouth every eight hours Acetaminophen 500 mg Tablet Discontinued 1000 MG PO Q8H 180 30 October 23, 2020 12:00am May 02, 2024 12:29pm Comment on above: Take 2 tablets by mo uth every 8 hours. (Mild pain reliever) Take by mouth. acetaminophen 325 mg / oxyCODONE hydrochloride 10 mg oral tablet (8 sources) Opioid Agonist take 1 tablet by mouth every six hours oxyCODONE-Acetamin ophen 10-325 MG 1 tablet as needed Orally every 6 hrs Active alendronic acid 70 mg oral tablet (2 sources) Bisphosphonate take 1 tablet by mouth once daily Fosamax 70 MG 1 tablet 30 minutes before the first food, beverage or medicine of the day with plain water Orally Active amantadine hydrochloride 100 mg oral capsule (9 sources) Influenza A M2 Protein Inhibitor Start: 04-21-19 End: 10-19-19 take 1 capsule by mouth twice daily, then take 1 capsule by mouth once daily amantadine HCl (SYMMETREL) 100 mg capsule Take 1 capsule by mouth two times a day. Take with first dose of carbidopa-levodopa daily for 1 week then start taking with 1st and 3rd dose of carbidopa-levodopa daily and continue on that dose 60 capsule 04/21/2024 10/18/2024 Active apixaban 2.5 mg oral tablet (8 sources) Factor Xa Inhibitor Eliquis 2.5 MG as directed Orally bid Active carbidopa 25 mg / levodopa 100 mg oral tablet (20 sources) Aromatic Amino Acid Decarboxylation Inhibitor, Aromatic Amino Acid Start: 05-02-19 take 1 tablet by mouth once daily at bedtime Carbidopa-Levodopa 25-100 mg tablet extended release Active 1 TAB PO Daily at bedtime May 02, 2024 1:00am Start: 02-03-2024 End: 05-08-2024 take 1 tablet by mouth once at bedtime carbidopa-levodopa CR (SINEMET CR) 25-100 mg per tablet Indications: Parkinson's disease without dyskinesia, with fluctuating manifestations (HCC) Take 1 tablet by mouth at bedtime 90 tablet 3 05/09/2024 Active Start: 12-31-2022 End: 07-14-2024 carbidopa-levodopa (SINEMET 25-100) 25-100 mg per tablet Indications: Parkinson's disease without dyskinesia, with fluctuating manifestations (HCC) TAKE 1 & 1/2 (ONE & ONE-HALF) TABLETS BY MOUTH 5 TIMES A DAY (6:30 AM, 9:30 AM, 12:30 PM, 3:30 PM AND 6:30 PM) 225 tablet 1 07/14/2024 Active Start: 06-21-2022 End: 12-31-2022 take 1 [...] 12:30 PM, 3:30 PM and 6:30 PM) cefTRIAXone 2000 mg injection (1 source) Cephalosporin Antibacterial cefTRIAXone Sodium 2 GM as directed Injection Active entacapone 200 mg oral tablet (1 source) Zkokdaky-C-Aadhhzeaq nsferase Inhibitor take 1 tablet by mouth every twelve hours Entacapone 200 MG 1 tablet Orally Twice a day Active famotidine 40 mg oral tablet (2 sources) Histamine-2 Receptor Antagonist Start: take 1 tablet by mouth once daily as needed for gastroesophageal reflux disease Famotidine 40 mg tablet Active 40 MG PO Daily as needed for heartburn 90 May 02, 2024 1:00am ferrous sulfate 325 mg oral tablet (2 sources) Start: take 1 tablet by mouth once daily Ferrous Sulfate 325 mg (65 mg iron) tablet Active 325 MG PO Daily May 02, 2024 1:00am ibuprofen 200 mg oral tablet (20 sources) Nonsteroidal Anti-inflammatory Drug Start: take 1 tablet by mouth once daily as needed Ibuprofen 200 mg tablet Active 200 MG PO Daily as needed May 02, 2024 1:00am Start: 10-08-2020 End: 07-13-2021 take 1 tablet by mouth three times daily as needed for pain Ibuprofen 800 mg tablet Discontinued 800 MG PO Three times daily as needed for Pain October 18, 2020 12:00am October 23, 2020 3:31pm Start: 10-08-2020 End: 10-18-2020 take 1 tablet by mouth once daily as needed for pain Ibuprofen 200 mg Tablet Discontinued 200 MG PO Daily as needed for Pain October 08, 2020 12:00am October 18, 2020 7:29am Start: 04-13-2018 End: 02-03-2020 take 1 tablet by mouth twice daily as needed for pain Ibuprofen 400 mg Tablet Discontinued 400 MG PO Twice daily as needed for Pain April 13, 2018 1:00am February 03, 2020 7:24pm IBUPROFEN ORAL T tigre by mouth. Active IBUPROFEN ORAL T tigre by mouth. 0 Active ibuprofen 1 tab Oral Active Comment on above: Take by mouth. loratadine 10 mg oral tablet (1 source) Start: take 1 tablet by mouth once daily Loratadine 10 mg tablet Active 10 MG PO Daily June 20, 2024 12:00am methylPREDNISolone 4 mg oral tablet (1 source) Corticosteroid Start: take 1 tablet by mouth once Methylprednisolone (Medrol (Juainto)) 4 mg tablets,dose pack Active 0 PO per package directions June 20, 2024 12:00am PO PER PKG DIR for 6 days mirtazapine 15 mg oral tablet (19 sources) Start: End: take 1 tablet by mouth once daily at bedtime mirtazapine (REMERON) 15 mg tablet Indications: Anxiety Take 1 tablet by mouth daily at bedtime. 90 tablet 3 02/25/2024 02/24/2025 Active Start: 11-03-2022 End: 05-02-2023 mirtazapine (REMERON) [...] santa th daily at bedtime. Multivitamin preparation (4 sources) Start: 1 take 1 tablet by mouth once daily Multivitamin Active 1 TAB PO Daily October 08, 2020 12:00am Multivitamin Tablet (2 sources) Start: 1 take 1 tablet by mouth once daily Multivitamin Tablet Active 1 TAB PO Daily October 08, 2020 12:00am Start: 10-08-2020 take 1 tablet by santa th once daily Multivitamin Tablet Active 1 TAB PO Daily October 07, 2020 11:00pm MULTIVITAMIN WITH MINERALS (MULTIVITAMIN & MINERAL FORMULA ORAL) (19 sources) take 1 tablet by santa th once daily MULTIVITAMIN WITH MINERALS (MULTIVITAMIN & MINERAL FORMULA ORAL) Take 1 tablet by mouth once daily. Active take 1 tablet by mouth once yanick y MULTIVITAMIN WITH MINERALS (MULTIVITAMIN & MINERAL FORMULA ORAL) Take 1 tablet by mouth once daily. 0 Active Comment on above: Take 1 tablet by santa th once daily. Multivitamins (5 sources) take 1 tablet by [...] and allow to dissolve Orally tid Active pregabalin 75 mg oral capsule (20 sources) Start: 07-21-19 End: 01-17-20 take 1 capsule by mouth three times daily pregabalin (LYRICA) 75 mg capsule Indications: RLS (restless legs syndrome) Take 1 capsule by mouth three times a day for 180 days. 90 capsule 5 07/20/2024 01/16/2025 Active Start: 04-21-2024 End: 10-18-2024 take 1 capsule by mouth three times daily pregabalin (LYRICA) 50 mg capsule Indications: Parkinson's disease without dyskinesia, with fluctuating manifestations (HCC) , Neuropathy , RLS (restless legs syndrome) Take 1 capsule by mouth three times a day for 180 days. 90 capsule 5 04/21/2024 07/20/2024 Discontinued (Dosage adjustment) End: 04-21-2024 pregabalin (LYRICA) 25 mg ca psule 50 mg three times daily. Breakfast Lunch Dinner 04/21/2024 Discontinued pregabalin (LYRI CA) 25 mg capsule Lyrica Active 0 Active Lyrica Active Comment on above: Lyrica Active 50 mg three times da nereyda. Breakfast Lunch Dinner rasagiline 0.5 mg oral tablet (1 source) Monoamine Oxidase Inhibitor Start: 07-21-19 End: 01-17-20 take 1 tablet by mouth once daily rasagiline (AZILECT) 0.5 mg tab Indications: Parkinson's disease without dyskinesia, with fluctuating manifestations (HCC) Take 1 tablet by mouth once daily. 90 tablet 1 07/20/2024 01/16/2025 Active rifAMPin 300 mg oral capsule (4 sources) [...] Vitamin C 500 MG (5 sources) Start: 10-09-19 Vitamin C 500 MG as directed Orally Sep, Active Completed/Discontinued Medications Medication Drug Class(es) Dates Sig (Normalized) Sig (Original) acetaminophen 325 mg / HYDROcodone bitartrate 5 mg oral tablet (20 sources) Opioid Agonist Start: 10-07-2020 End: 10-23-2020 take 1 tablet by mouth every four to six hours as needed for pain Hydrocodone-Acetami nophen 5-325 mg tablet Discontinued 1 - 2 TAB PO EVERY 4-6 HOURS as needed for pain October 08, 2020 3:12pm October 23, 2020 3:31pm Start: 01-17-2017 End: 04-13-2018 take 1 tablet by mouth every four to six hours as needed for pain Hydrocodone-Acetaminophen (D[place]muir) 5-325 mg tablet Discontinued 1 TAB PO EVERY 4-6 HOURS as needed for pain January 17, 2017 April 13, 2018 6:05pm take 1 tablet by santa th every six hours as needed D[place]muir 5-325 MG 1 tablet as needed Orally every 6 hrs Active ascorbic acid 500 mg oral tablet (6 sources) Vitamin C Start: 10-18-2020 End: 05-02-2024 take 1 tablet by mouth once daily Ascorbic Acid (Vitamin C) (Vitamin C) 500 mg tablet Discontinued 500 MG PO Daily October 18, 2020 12:00am May 02, 2024 12:37pm aspirin 81 mg delayed release oral tablet (11 sources) Platelet Aggregation Inhibitor, Nonsteroidal Anti-inflammatory Drug Start: 10-23-2020 End: 05-02-2024 take 1 tablet by mouth twice daily Aspirin 81 mg Tablet,Delayed Release (Dr/Ec) Discontinued 81 MG PO Twice daily 42 October 23, 2020 12:00am May 02, 2024 12:36pm celecoxib 200 mg oral capsule (2 sources) Nonsteroidal Anti-inflammatory Drug Start: 08-30-2018 End: 07-16-2022 take 1 capsule by mouth twice daily celecoxib (CELEBREX) 200 mg capsule TAKE 1 CAPSULE BY MOUTH TWICE A DAY 60 capsule 0 08/30/2018 07/16/2022 Discontinued Comment on above: TAKE 1 CAPSULE BY [facility] TWICE A DAY cyclobenzaprine hydrochloride 10 mg oral tablet (20 sources) Muscle Relaxant Start: 10-23-2020 End: 05-02-2024 take 1 tablet by mouth every eight hours Cyclobenzaprine 10 mg tablet Discontinued 10 MG PO Q8H 42 December 05, 2020 12:00am May 02, 2024 12:36pm Start: 10-08-2020 End: 10-18-2020 take 1 tablet by mouth at bedtime as needed for muscle spasms Cyclobenzaprine (Flexeril) 10 mg Tablet Discontinued 10 MG PO Bedtime as needed for muscle spasms October 09, 2020 12:00am October 18, 2020 7:30am diclofenac sodium 20 mg/ml topical solution (9 sources) Nonsteroidal Anti-inflammatory Drug Start: 08-23-2018 End: 07-16-2022 diclofenac sodium (PENNSAID) 20 mg/gram /actuation(2 %) [...] ml enoxaparin sodium 100 mg/ml prefilled syringe (12 sources) Low Molecular Weight Heparin Start: End: Enoxaparin (Lovenox) 40 mg/0.4 mL syringe Discontinued 40 MG SUBCUT Daily October 18, 2020 7:32am October 23, 2020 3:31pm naproxen 500 mg oral tablet (11 sources) Nonsteroidal Anti-inflammatory Drug Start: 7 End: take 1 tablet by mouth every twelve hours at mealtime Naproxen (Naprosyn) 500 mg tablet Discontinued 500 MG PO Q12H January 17, 2017 12:00am April 13, 2018 6:05pm administer with food or milk take 1 tablet by santa th every twelve hours as needed Aleve 220 MG 1 tablet Orally q12hrs prn Active oxyCODONE hydrochloride 5 mg oral tablet (20 sources) Opioid Agonist Start: 12-05-2020 End: 05-02-2024 take 1 tablet by mouth every six hours as needed for pain Oxycodone (Roxicodone) 5 mg tablet Discontinued 5 MG PO Q6H as needed for pain 40 7 December 05, 2020 May 02, 2024 12:36pm Start: 10-23-2020 End: 05-02-2024 take 1 tablet by mouth every four hours as needed for pain Oxycodone 5 mg Tablet Discontinued 5 MG PO Every 4 hours as needed for Pain Scale 1 - 5 40 7 October 23, 2020 May 02, 2024 12:36pm predniSONE 20 mg oral tablet (11 sources) Start: 01-17-2017 End: 04-13-2018 take 3 tablets by mouth once daily at mealtime Prednisone 20 mg tablet Discontinued 60 MG PO Daily January 17, 2017 12:00am April 13, 2018 6:05pm administer with food or milk Start: 01-17-2017 End: 04-13-2018 take 60 mg by mouth once daily at mealtime Prednisone Discontinued 60 MG PO Daily January 17, 2017 12:00am April 13, 2018 6:05pm administer with food or milk Prednisone 1 tab Oral Active sulfamethoxazole 800 mg / trimethoprim 160 mg oral tablet (20 sources) Dihydrofolate Reductase Inhibitor Antibacterial, Sulfonamide Antimicrobial Start: 07-29-2021 End: 07-20-2024 sulfamethoxazole-trimethopri m (BACTRIM DS) 800-160 mg per tablet Take by mouth q 12 HR. 07/29/2021 07/20/2024 Discontinued (Course of therapy completed) Start: 07-29-2021 take 1 tablet by santa [...] left ankle] Onset: 11-20-2021 Episodic Anxiety disorders (2 sources) Anxiety; Translations: [Anxiety disorder, unspecified] Chronic Bacterial infection; unspecified site (8 sources) Methicillin susceptible Staphylococcus aureus infection, unspecified site Onset: 07-29-2021 Resolved: 12-23-2021 Episodic Chronic ulcer of skin [...] [Unspecified fall, initial encounter] Onset: 02-02-2023 Episodic Esophageal disorders (4 sources) Gastroesophageal reflux disease; Translations: [Gastro-esophageal reflux disease without esophagitis] 05-02-2024 Chronic Essential hypertension (1 source) Essential (primary) hypertension; Translations: [ESSENTIAL PRIMARY HYPERTENSION] Onset: 06-17-2022 Chronic Fracture of lower limb (20 sources) Closed pilon fracture; Translations: [Displaced pilon fracture of left tibia, subsequent encounter for closed fracture with malunion] Onset: 01-02-2021 Resolved: 01-16-2021 Episodic Comment on above: Problem List clean-u p per request of Phys. EHR Cmte Infective arthritis and osteomyelitis (except that caused [...] [Osteoarthritis of hip] Onset: 01-22-2017 01-17-2017 Chronic Comment on above: Problem List clean-u p per request of Phys. 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] Onset: 07-23-2022 Episodic Other [...] Onset: 04-17-2023 Chronic Other connective tissue disease (4 sources) Pain in left foot; Translations: [PAIN IN LEFT FOOT] Onset: 03-22-2022 Episodic Other connective tissue disease (1 source) Arthrodesis status; Translations: [ARTHRODESIS STATUS] Onset: 07-23-2022 Episodic Other hereditary and degenerative nervous system conditions (4 sources) Restless legs; Translations: [Restless legs syndrome] 04-21-2024 Chronic Other hereditary and degenerative nervous system conditions (1 source) Restless legs syndrome; Translations: [Restless leg syndrome, nonfamilial, uncontrolled] Onset: 04-21-2024 Chronic Other nervous system disorders (1 source) Complex regional pain syndrome, type I; Translations: [Complex regional pain syndrome I, unspecified] Chronic Other nervous system disorders (1 source) Other chronic pain; Translations: [OTHER CHRONIC PAIN] Onset: 03-22-2022 Chronic Other nervous system disorders (1 source) Neuropathy; Translations: [Polyneuropathy, unspecified] 04-21-2024 Chronic Other non-traumatic joint disorders (1 source) Other specified arthritis, unspecified site; Translations: [OTHER SPECIFIED ARTHRITIS UNS SITE] Onset: 11-20-2021 Chronic Other non-traumatic joint disorders (5 sources) Pain in left ankle and joints of left foot; Translations: [PAIN IN LEFT ANKLE] Onset: 04-15-2022 Episodic Other non-traumatic joint disorders (1 source) Pain in right hip; Translations: [Pain in right hip] Onset: 03-27-2023 Episodic Other screening for suspected conditions (not mental disorders or infectious disease) (6 sources) Screening due; Translations: [Encounter for screening, unspecified] Onset: 04-21-2024 02-25-2024 Episodic Other skin disorders (1 source) Rash and other nonspecific skin eruption; Translations: [Rash and other nonspecific skin eruption] 06-20-2024 Episodic Parkinson`s disease (13 sources) Parkinson's disease; Translations: [Parkinson's disease] Onset: 07-23-2022 Chronic Parkinson`s disease (1 source) Parkinson`s disease; Translations: [Parkinson's disease without dyskinesia, with fluctuating manifestations (HCC)] Onset: 04-21-2024 Poisoning by other medications and drugs (6 sources) Poisoning by unspecified drugs, medicaments and biological substances, accidental (unintentional), initial encounter; Translations: [Drug overdose] 02-03-2020 Episodic Comment on above: Problem List clean-u p per request of Phys. EHR Cmte Residual codes; unclassified (1 source) Insomnia; Translations: [Insomnia, unspecified] 07-20-2024 Episodic Rheumatoid arthritis and related disease (1 [...] COLLAPSE] Onset: 07-23-2022 Episodic Unclassified (1 source) CONTACT W/AND (SUSP) EXPOS COVID-19; Translations: [CONTACT W/AND (SUSP) EXPOS COVID-19] Onset: 07-23-2022 Unclassified (1 source) Low back pain, unspecified; Translations: [Low back pain, unspecified] Onset: 03-27-2023 Past or Other Problems Problem Classification Problem Date Documented Da te Episodic/Chronic Complications of surgical procedures or medical care (5 sources) Other complications of procedures, not elsewhere classified, initial encounter; Translations: [OTH COMPLICATIONS PROC NEC INITIAL] Onset: 09-30-2021 Episodic Fluid and electrolyte disorders (19 sources) Hyperkalemia; Translations: [Hyperkalemia] Onset: 04-28-2018 04-28-2018 Episodic Other acquired deformities (1 source) Unequal limb length (acquired), unspecified site; Translations: [UNEQUAL LIMB LENGTH ACQ UNS SITE] Onset: 02-28-2022 Episodic Other aftercare (1 source) 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 Onset: 10-24-2021 Resolved: 10-24-2021 Episodic Other bone disease and musculoskeletal deformities (1 source) Other specified disorders of bone density and structure, left ankle and foot; Translations: [OTH D/O BONE DEN STRUCT LT ANK FOOT] Onset: 11-20-2021 Episodic Other connective tissue disease (19 sources) Trochanteric bursitis; Translations: [Trochanteric bursitis, right [...] Onset: 07-01-2017 Episodic Other non-traumatic joint disorders (7 sources) Pain in right hip joint; Translations: [Pain in right hip] Onset: 02-04-2017 02-04-2017 Episodic Other non-traumatic joint disorders (12 sources) Hip pain; Translations: [Pain in right hip] Onset: 02-04-2017 02-04-2017 Episodic Residual codes; unclassified (1 source) Other specified postprocedural states; Translations: [Other specified postprocedural states Z98.890] Onset: 01-02-2021 Resolved: 01-02-2021 Episodic Sprains and strains (20 sources) Strain of muscle, fascia and tendon of right hip, initial encounter; Translations: [Low back strain] Onset: 06-29-2017 06-29-2017 Episodic Results Test Name Value Interpretation Reference Range Facility [facility] 07-18-2024 [facility] Telephone (NREUS2) SANDRA BOSS ([id number]) 1965 M Date Time Provider Department 07/18/24 HERIBERTO CARRERA NREUS2 During your visit today, we recorded the following information about you: Jocelyn Flower 07/18/2024 12:02 PM Signed Pt is having surgery coming up and they need the last OV note faxed over. Faxed to [facility] at [phone]. Allergies As of Date: 07/18/2024 Noted Allergy Reaction VANCOMYCIN 06/16/2021 14 - Other: See Comments Date Reviewed: 04/21/2024 Reviewed by: Mahad Izquierdo CT - Fully Assessed Reason for Visit: Release of Information [Other] Prescriptions as of 07/18/2024 - carbidopa-levodopa (SINEMET 25-100) 25-100 mg per tablet TAKE 1 AND 1/2 (ONE AND ONE-HALF) TABLETS BY MOUTH 5 TIMES A DAY (6:30 AM, 9:30 AM, 12:30 PM, 3:30 PM AND 6:30 PM) - carbidopa-levodopa CR (SINEMET CR) 25-100 mg per tablet Take 1 tablet by mouth at bedtime - pregabalin (LYRICA) 50 mg capsule Take 1 capsule by mouth three times a day for 180 days. - amantadine HCl (SYMMETREL) 100 mg capsule Take 1 capsule by mouth two times a day. Take with first dose of carbidopa-levodopa daily for 1 week then start taking with 1st and 3rd dose of carbidopa-levodopa daily and continue on that dose - mirtazapine (REMERON) 15 mg tablet Take 1 tablet by mouth daily at bedtime. - Acetaminophen 500 mg cap Take by mouth. - sulfamethoxazole-trim ethoprim (BACTRIM DS) 800-160 mg per tablet Take by mouth q 12 HR. - IBUPROFEN ORAL Take by mouth. - MULTIVITAMIN WITH MINERALS (MULTIVITAMIN AND MINERAL FORMULA ORAL) Take 1 tablet by mouth once daily. Problem List As Of Date 07/18/2024 Noted Resolved Osteoarthritis of right hip [M16.11] 01/22/2017 Pain in right hip [M25.551] 02/04/2017 Greater trochanteric bursitis of right hip [M70*02/04/2017 Primary osteoarthritis of right hip [M16.11] 03/18/2017 Tear of right gluteus minimus tendon [S76.011A] 06/29/2017 Osteoarthritis of left hip [M16.12] 04/02/2018 Current smoker [F17.200] 04/20/2018 Hyperkalemia [E87.5] 04/28/2018 Encounter Status:Closed by JOCELYN FLOWER on 07/18/24 Normal [facility] Cholesterol [Mass/volume] in Serum or PlasmaOrdered By: Clare Brandt on 05-06-2024 Cholesterol [Mass/Vol] Cholesterol [Mass/volume] in Serum or Plasma 140-200 [facility] Comment on above: Chol less than 200 m g/dl low riskChol 201-239 mg/dl borderline riskChol 240 mg/dl and greater high risk Cholesterol in HDL [Mass/vol ume] in Serum or PlasmaOrdered By: Clare Brandt on 05-06-2024 Cholesterol in HDL [Mass/Vol] Serum or plasma high density lipoprotein (HDL) cholesterol measurement 23-92 [facility] Comment on above: HDL CHOL ATP-III CLA SSIFICATION Cardiovascular RiskHDL > or equal to 60 mg/dL LOWHDL < 40 mg/dL HIGH Cholesterol in LDL Calc [Mas s/Vol]Ordered By: Clare Brandt on 05-06-2024 Cholesterol in LDL [Mass/Vol] Cholesterol in LDL [Mass/volume] in Serum or Plasma by calculation 0-100 [facility] Comment on above: LDL ATP III CLASSIFI CATIONLDL less than 100 mg/dL OptimalLDL 100-129 mg/dL Near or above optimalLDL 130-159 mg/dL Borderline highLDL 160-189 mg/dL HighLDL greater than 189 mg/dL Very high Cholesterol in VLDL Calc [Ma ss/Vol]Ordered By: Clare Brandt on 05-06-2024 Cholesterol in VLDL [Mass/Vol] Cholesterol in VLDL [Mass/volume] in Serum or Plasma by calculation [facility] Prostate specific Ag [Mass/v olume] in Serum or PlasmaOrdered By: Clare Brandt on 05-06-2024 Prostate specific Ag [Mass/Vol] Prostate specific Ag [Mass/volume] in Serum or Plasma 0.000-4.000 [facility] Comment on above: Serial tumor marker results determined by assays using different manufacturers or methods may not be comparable.[facility] Laboratory solution engineer and method:SCOUT [employer] DXI, CHEMILUMINESCENT IMMUNOASSAY. Serum or plasma total choles terol/high density lipoprotein (HDL) cholesterol mass ratOrdered By: Clare Brandt on 05-06-2024 Cholesterol.total/Cho lesterol in HDL [Mass ratio] Serum or plasma total cholesterol/high density lipoprotein (HDL) cholesterol mass rat <5.0 [facility] Triglyceride [Mass/volume] i n Serum or PlasmaOrdered By: Clare Brandt on 05-06-2024 Triglyceride [Mass/Vol] Triglyceride [Mass/volume] in Serum or Plasma 0-149 [facility] Comment on above: TRIG ATP III CLASSIF ICATIONTRIG less than 150 mg/dL NormalTRIG 150-199 mg/dL Borderline highTRIG 200-500 mg/dL High TRIG greater than 500 mg/dL Very highStandard traceable to the Center for Disease Conrtrol and Prevention (CDC) test method. CBC panel Auto (Bld)on 04-21 Erythrocyte distribution width (RBC) [Ratio] 14.2 % Normal 11.5-15.0 [facility] Comment on above: Order Comment: Speci men Type: BLOOD SPECIMEN Ordering Facility: [facility] Address: [address] [place] [address] Performed By: #### 5 8410-2 #### [facility] CLIA [id number] [address] [place] [address] [place] Hematocrit (Bld) [Volume fraction] 43.9 % Normal 39.0-51.0 [facility] Comment on above: Order Comment: Speci men Type: BLOOD SPECIMEN Ordering Facility: [facility] Address: [address] [place] [address] Performed By: #### 5 8410-2 #### [facility] CLIA [id number] [address] [place] [address] [place] Hemoglobin (Bld) [Mass/Vol] 14.0 g/dL Normal 13.0-17.0 [facility] Comment on above: Order Comment: Speci men Type: BLOOD SPECIMEN Ordering Facility: [facility] Address: [address] [place] [address] Performed By: #### 5 8410-2 #### [facility] CLIA [id number] [address] [place] [address] [place] MCH (RBC) [Entitic mass] 29.4 pg Normal 26.0-34.0 [facility] Comment on above: Order Comment: Speci men Type: BLOOD SPECIMEN Ordering Facility: [facility] Address: [address] [place] [address] Performed By: #### 5 8410-2 #### [facility] CLIA [id number] [address] [place] [address] [place] MCHC (RBC) [Mass/Vol] 31.9 g/dL Normal 30.5-36.0 [facility] Comment on above: Order Comment: Speci men Type: BLOOD SPECIMEN Ordering Facility: [facility] Address: [address] [place] [address] Performed By: #### 5 8410-2 #### [facility] CLIA [id number] [address] [place] [address] [place] MCV (RBC) [Entitic vol] 92.2 fL Normal 80.0-100.0 [facility] Comment on above: Order Comment: Speci men Type: BLOOD SPECIMEN Ordering Facility: [facility] Address: [address] [place] [address] Performed By: #### 5 8410-2 #### [facility] CLIA [id number] [address] [place] [address] [place] Nucleated RBC (Bld) [#/Vol] 10*3/uL Normal <0.01 [facility] Comment on above: Order Comment: Speci men Type: BLOOD SPECIMEN Ordering Facility: [facility] Address: [address] [place] [address] Performed By: #### 5 8410-2 #### [facility] CLIA [id number] [address] [place] [address] [place] Platelet mean volume (Bld) [Entitic vol] 11.8 fL Normal 9.0-12.7 [facility] Comment on above: Order Comment: Speci men Type: BLOOD SPECIMEN Ordering Facility: [facility] Address: [address] [place] [address] Performed By: #### 5 8410-2 #### [facility] CLIA [id number] [address] [place] [address] [place] Platelets (Bld) [#/Vol] 217 10*3/uL Normal 150-400 [facility] Comment on above: Order Comment: Speci men Type: BLOOD SPECIMEN Ordering Facility: [facility] Address: [address] [place] [address] Performed By: #### 5 8410-2 #### [facility] CLIA [id number] [address] [place] [address] [place] RBC (Bld) [#/Vol] 4.76 10*6/uL Normal 4.20-6.00 [facility] Comment on above: Order Comment: Speci men Type: BLOOD SPECIMEN Ordering Facility: [facility] Address: [address] [place] [address] Performed By: #### 5 8410-2 #### [facility] CLIA [id number] [address] [place] [address] [place] WBC (Bld) [#/Vol] 8.89 10*3/uL Normal 3.70-11.00 [facility] Comment on above: Order Comment: Speci men Type: BLOOD SPECIMEN Ordering Facility: [facility] Address: [address] [place] [address] Performed By: #### 5 8410-2 #### [facility] CLIA [id number] [address] [place] [address] [place] CNOVon 04-21-2024 CNOV Office Visit (NREUS2 ) SANDRA BOSS ([id number]) 1965 M Date Time Provider Department 04/21/24 11:00 AM HERIBERTO CARRERA NREUS2 During your visit today, we recorded the following information about you: Height 1.829 m Heriberto Carrera MD 04/21/2024 4:09 PM Signed [facility] - FOLLOW UP EVALUATION Rio Alanis MD [address] [facility] [address] [facility] [id number] Dear Rio Alanis MD: I had the pleasure of seeing Mr. Boss for follow-up today. As you know he is a 58 year old right-handed male with a history of tremor predominant Parkinson disease since 2015. Subjective Previous Plan-02/03/2024 Visit: I have sent in your Sinemet prescription, as well as a new prescription for Sinemet CR at bedtime to assist with symptoms when you wake up. It is very important that we see our Parkinson's Disease patients in person with relative frequency so that we can ensure your medication schedule is appropriate and optimized. Please come see Dr. Carrera in person this April. Interval History: 58 year old male, right handed He feels much better. He feels his tremor is better than before. He notices irregular movements in his left arm 30 mins to 45 mins after he takes his dose. He notices it with every dose and has been getting worse over the past 2 weeks. Sleep is getting worse over the past 2 weeks as he has increase urge to move his legs while lying down at night. Upper back pain worse when he lies down 7/10 has been noticing since the past month, gets better when he takes his ibuprofen. This doesn't resolve the pain completely but gets him through the day. He notices his left arm and leg are tensing up and has spasms 30 mins before the next dose is due. He also notices his stiffness persists throughout the day but worsens before the next dose. He tries to have the medication with food and he feels better than before in terms of his GI side effects. Has a bowl of oatmeal usually along with his medication. He does 30 mins of walking and stretching almost daily and then spends the rest of the day with his grand kids. Due to multiple surgeries in his left ankle he can't exercise much. He feels the anxiety is the same, he talks to his sister whenever he feels down. He fell from his bed twice as he felt he was in a dream trying to get a away happened twice within the past year. Denies constipation. He still has hyposmia hasn't worsened. His let leg curls inside since a month Movement Disorders Medications Schedule - as of the start of the visit: Medications 6:30 AM 9:30 AM 12:30 PM 3:30 PM 6:30 PM BED Sinemet 25/100 mg 1.5 1.5 1.5 1.5 1.5 Sinemet CR 25/100 1 Parkinson's Motor Complications Medication benefit onset: 60 minutes Medication duration: 3 hours Wearing off: yes (Comment: tremor) Questionnaires: Mood/Behavior Depression: PHQ-9 Score: 13 usually representing moderate (10-14) depression. Anxiety: Finally, the following table shows the patient's overall global physical and mental health using the PROMIS scale: PROMIS-10 Flowsheet Row [facility] from 02/03/2024 in [facility] from 11/03/2022 in [facility] Global Physical Health T Score 39.8 39.8 Global Mental Health T Score 38.8 43.5 0-10 Standard Pain Scale 3 3 *PROMIS-10 scoring scale: mean = 50, over 50 is above average, under 50 is below average ALLERGIES Allergen Reactions Vancomycin Other: See Comments Current Outpatient Medications Medication Sig carbidopa-levodopa (SINEMET 25-100) 25-100 mg per tablet TAKE 1.5 TABLET BY MOUTH 5 TIMES DAILY (6:30 AM, 9:30 AM, 12:30 PM, 3:30 PM and 6:30 PM) mirtazapine (REMERON) 15 mg tablet Take 1 tablet by mouth daily at bedtime. carbidopa-levodopa CR (SINEMET CR) 25-100 mg per tablet Take 1 tablet by mouth at bedtime Acetaminophen 500 mg cap Take by mouth. sulfamethoxazole-trim ethoprim (BACTRIM DS) 800-160 mg per tablet Take by mouth q 12 HR. IBUPROFEN ORAL Take by mouth. MULTIVITAMIN WITH MINERALS (MULTIVITAMIN AND MINERAL FORMULA ORAL) Take 1 tablet by mouth once daily. pregabalin (LYRICA) 50 mg capsule Take 1 capsule by mouth three times a day for 180 days. amantadine HCl (SYMMETREL) 100 mg capsule Take 1 capsule by mouth two times a day. Take with first dose of carbidopa-levodopa daily for 1 week then start taking with 1st and 3rd dose of carbidopa-levodopa daily and continue on that dose No current facility-administered medications for this visit. Objective Vital Signs: Ht 182.9 cm (6') SpO2 98% BMI 21.56 kg/m? Orthostatic Vitals: Sitting: BP 102/69 Pulse 60 Standing: BP 104/65 Pulse 61 Height: 182.9 cm (6') No LMP for male patient. Body mass index is 21.56 kg/m?. General Physical Examination: General: Awake, alert, interactive, no acute distress, good nutr (more content not included)... Normal [facility] CREATININE BLDon 04-21-2024 Creatinine [Mass/Vol] 0.84 mg/dL Normal 0.73-1.22 [facility] Comment on above: Order Comment: Bam chamberlain Type: BLOOD SPECIMEN Ordering Facility: [facility] Address: [address] [place] [address] Performed By: #### 5 0190-8, 80171-4, CRET1, 2276-4 #### [facility] CLIA [id number] [address] [address] [place] Creatinine and Glomerular filtration rate.predicted panel (S/P/Bld) 101 mL/min/1.73m??? Normal >=60 [facility] Comment on above: Order Comment: Bam chamberlain Type: BLOOD SPECIMEN Ordering Facility: [facility] Address: [address] [place] [address] Result Comment: Megan mated Glomerular Filtration Rate (eGFR) is calculated using the 2020 CKD-EPI creatinine equation. This equation utilizes serum creatinine, sex, and age as parameters. The creatinine assay has traceable calibration to isotope dilution-mass spectrometry. Refer to KDIGO guidelines for clinical interpretation. In patients with unstable renal function, e.g. those with acute kidney injury, the eGFR may not accurately reflect actual GFR. Performed By: #### 5 0190-8, 28623-0, CRET1, 2275-4 #### [facility] CLIA [id number] [address] [address] [place] FERRITINon 04-21-2024 Ferritin [Mass/Vol] 109.0 ng/mL 30.3 - 5 65.7 ng/mL [facility] Ferritin SerPl-mCncon 2024 Ferritin [Mass/Vol] 109.0 ng/mL Normal 30.3-565.7 [facility] Comment on above: Order Comment: Speci men Type: BLOOD SPECIMEN Ordering Facility: [facility] Address: [address] [place] [address] Performed By: #### 5 0190-8, 18053-3, CRET1, 2275-4 #### [facility] CLIA [id number] [address] [place] [address] [place] Ferritin [Mass/Vol]on 2024 Interpretation and review of laboratory results Normal [facility] Hepatic function 2000 panelo n 04-21-2024 Albumin [Mass/Vol] 4.2 g/dL Normal 3.9-4.9 [facility] Comment on above: Order Comment: Speci men Type: BLOOD SPECIMEN Ordering Facility: [facility] Address: [address] [place] [address] Performed By: #### 5 0190-8, 53655-9, CRET1, 2275-4 #### [facility] CLIA [id number] [address] [address] [place] ALP [Catalytic activity/Vol] 114 U/L High 38-113 [facility] Comment on above: Order Comment: Speci men Type: BLOOD SPECIMEN Ordering Facility: [facility] Address: [address] [place] [address] Performed By: #### 5 0190-8, 52022-1, CRET1, 2275-4 #### [facility] CLIA [id number] [address] [place] [address] [place] ALT [Catalytic activity/Vol] 8 U/L Low 10-54 [facility] Comment on above: Order Comment: Speci men Type: BLOOD SPECIMEN Ordering Facility: [facility] Address: [address] [place] [address] Performed By: #### 5 0190-8, 73936-5, CRET1, 2275-4 #### [facility] CLIA [id number] [address] [place] [address] [place] AST [Catalytic activity/Vol] 19 U/L Normal 14-40 [facility] Comment on above: Order Comment: Speci men Type: BLOOD SPECIMEN Ordering Facility: [facility] Address: [address] [place] [address] Performed By: #### 5 0190-8, 34614-2, CRET1, 2275-4 #### [facility] CLIA [id number] [address] [place] [address] [place] Bilirubin [Mass/Vol] 0.3 mg/dL Normal 0.2-1.3 [facility] Comment on above: Order Comment: Speci men Type: BLOOD SPECIMEN Ordering Facility: [facility] Address: [address] [place] [address] Performed By: #### 5 0190-8, 94636-2, CRET1, 2275-4 #### [facility] CLIA [id number] [address] [place] [address] [place] Bilirubin.conjugated [Mass/Vol] 0.1 mg/dL Normal <0.3 [facility] Comment on above: Order Comment: Speci men Type: BLOOD SPECIMEN Ordering Facility: [facility] Address: [address] [place] [address] Performed By: #### 5 0190-8, 48578-3, CRET1, 2276-4 #### [facility] CLIA [id number] [address] [place] [address] [place] Protein [Mass/Vol] 6.9 g/dL Normal 6.3-8.0 [facility] Comment on above: Order Comment: Speci men Type: BLOOD SPECIMEN Ordering Facility: [facility] Address: [address] [place] [address] Performed By: #### 5 0190-8, 86653-7, CREMaurilio, 2275-4 #### [facility] CLIA [id number] [address] [address] [place] Iron and Iron binding capaci ty panelon 04-21-2024 Interpretation and review of laboratory results Normal [facility] Iron [Mass/Vol] 68 ug/dL 41 - 186 ug/dL [facility] Iron binding capacity [Mass/Vol] 334 ug/dL 232 - 386 ug/dL [facility] Iron/TIBC [Molar ratio] 20.4 % 15.0 - 57.0 % [facility] Iron [Mass/Vol] 68 ug/dL Normal 41-186 [facility] Comment on above: Order Comment: Speci men Type: BLOOD SPECIMEN Ordering Facility: [facility] Address: [address] [place] [address] Performed By: #### 5 0190-8, 32913-6, CREMaurilio, 4 #### [facility] CLIA [id number] [address] [place] [address] [place] Iron binding capacity [Mass/Vol] 334 ug/dL Normal 232-386 [facility] Comment on above: Order Comment: Speci men Type: BLOOD SPECIMEN Ordering Facility: [facility] Address: [address] [place] [address] Performed By: #### 5 0190-8, 65950-3, CRET1, 2275- #### [facility] CLIA [id number] [address] [place], [place] [address] [place] Iron/TIBC [Molar ratio] 20.4 % Normal 15.0-57.0 [facility] Comment on above: Order Comment: Speci men Type: BLOOD SPECIMEN Ordering Facility: [facility] Address: [address] [place] [address] Performed By: #### 5 0190-8, 14717-9, CRET1, 2276-4 #### [facility] CLIA [id number] [address] [place] [address] OF [place] Bolivar 07-23-2023 L Specimen: [id number] Received: 07/27/23 Status: GABRIELA Cagle Num: [id number] Spec Type: Surgical Subm Dr: Vickie Hart DPM, MS Tissues: A DIGIT AMPUTATION (LEFT 2ND TOE) B DIGIT AMPUTATION (LEFT 3RD TOE) Procedures: HE/7, Gross/Micro L4/2, Decalcification/2 Age/ Patient Sex Location Account Attending Physician Sandra Boss 57/M LABE[facility] [id number] Vickie Hart DPM, MS SPEC NUM: [id number] RECD: 07/27/23 STATUS: GABRIELA CAGLE NUM: [id number] MEGHNA: 07/23/[address]: Vickie Hart DPM, MS ENTERED: 07/27/[address] [facility] [address]: Brandan Hodge SPEC TYPE: Surgical DEPT: [facility] [place] ORDERED: HE/7, Gross/Micro L4/2, Decalcification/2 ORDERED: HE/7, Gross/Micro L4/2, Decalcification/2 Pathological Diagnosis A, left second toe, amputation: -Severe chronic wound with patchy granulation tissue formation (mildly chronically inflamed) replacing significant medullary portions of the degenerated toe bone, compatible with mildly associated chronic osteomyelitis, otherwise without any obvious acute inflammation observable -Viable skin, soft tissue, and bony margins with acute inflammation B, left third toe, amputation: -Third toe bone with a severe longitudinal line / cleft of chronic medullary degeneration with the associated cavitary trabecular disruption and the surrounding granulation tissue fibrosis, otherwise without any acute inflammation or osteomyelitis identified -Viable skin, soft tissue, and bony margins with acute inflammation -Incidental small bulging skin tag without secondary inflammation or infection Gross Description A. The specimen is received in formalin, labeled with the patient's name and left second toe . It consists of a 4.3 cm in length by 2.3 cm in greatest diameter transected digit with an attached, thickened jim-yellow nail. The skin surface is jim-van, with the skin margin coming to within 0.5 cm of the distal bone margin. No lesions are identified. Sectioning reveals an unremarkable, yellow spongy bone matrix. Gross photos are taken. The -------- Specimen: [id number] Received: 07/27/23 Status: GABRIELA Birchbob Num: [id number] Spec Type: Surgical Subm Dr: Vickie Hart,EDE, MS Tissues: A DIGIT AMPUTATION (LEFT 2ND TOE) B DIGIT AMPUTATION (LEFT 3RD TOE) Procedures: HE/7, Gross/Micro L4/2, Decalcification/2 -------- Patient: BossSandra [id number] (Continued) -------- Specimen: [id number] Received: 07/27/23 (Continued) Gross Description (Continued) Signed (signature on file) Chin-Eduardo Roque MD 07/30/23 1650 -------- Specimen: [id number] Received: 07/27/23 Status: GABRIELA Cagle Num: [id number] Spec Type: Surgical Subm Dr: Vickie Hart,EDE, MS Tissues: A DIGIT AMPUTATION (LEFT 2ND TOE) B DIGIT AMPUTATION (LEFT 3RD TOE) Procedures: /Michael, Gross/Micro L4/2, Decalcification/2 -------- Patient: Tigre Bosschacha Garibay [id number] (Continued) -------- Specimen: [id number] Received: 07/27/23 (Continued) Gross Description (Continued) specimen is representatively submitted as follows: A1: Skin and soft tissue margin A2: Proximal bone margin inked blue, en face, following decal A3: Full-thickness, longitudinal section of skin, soft tissue and underlying bone, following decal B. The specimen is received in formalin, labeled with the patient's name and left third toe . It consists of a 3 point centimeters in length by 1.2 cm in greatest diameter transected digit with an attached jim-yellow nail. The skin surface contains a 0.5 x 0.3 cm flesh-colored papule, coming to within 0.5 cm of the skin and soft tissue margin. The remaining skin surface is jim and unremarkable. Additionally submitted in the same container is a 2.1 x 1.2 x 1.0 cm fragment of jim, unremarkable skin. The skin surface is unremarkable and contains no identifiable lesions. Gross photos are taken. [employer] sections are submitted as follows: B1:Skin and soft tissue margin B2: Flesh-colored papule and additional skin B3: Proximal bone margin and inked blue, en face, following decal B3: Full-thickness, longitudinal section of skin, soft tissue and underlying bone, following decal TW/CYC Clinical history: Cellulitis left toe, pain due to internal hardware, removal of hardware, left second and third toe amputations, modified Chaney bunionectomy and chilectomy CP (more content not included)... Normal [facility] C-Reactive Proteinon 024 CRP [Mass/Vol] mg/L Normal 0.0-5.0 [facility] Comment on above: Performed By: #### C RP #### [facility] [address] [place] [address] Sedimentation Rateon 024 Sedimentation Rate 2 mm Normal 0-20 [facility] Comment on above: Result Comment: ESR Units mm/Hr Performed By: #### E SR #### [facility] [address] [place] [address] XR HIP 2-3 VW W PELVIS RIGHT [...] Suman Nguyen MD 04/24/23 Final result Normal [facility] CBC With Platelet and Differ entialon 03-27-2023 Anisocytosis Ql (Bld) 1+ Normal [facility] Comment on above: Performed By: #### C BCWD #### [facility] [address] [place] [address] Atypical Lymphs 4 % Normal [facility] Comment on above: Performed By: #### C BCWD #### [facility] [address] [place] [address] Basophils (Bld) [#/Vol] 0.1 10*3/uL Normal 0.0-0.2 [facility] Comment on above: Performed By: #### C BCWD #### [facility] [address] [place] [address] Basophils/100 WBC (Bld) 1.0 % Normal [facility] Comment on above: Performed By: #### C BCWD #### [facility] [address] [place] [address] Eosinophils (Bld) [#/Vol] 0.1 10*3/uL Normal 0.0-0.7 [facility] Comment on above: Performed By: #### C BCWD #### [facility] [address] [place] [address] Eosinophils/100 WBC (Bld) 1.0 % Normal [facility] Comment on above: Performed By: #### C BCWD #### [facility] [address] [place] [address] Lymphocytes (Bld) [#/Vol] 1.4 10*3/uL Normal 1.0-4.8 [facility] Comment on above: Performed By: #### C BCWD #### [facility] [address] [place] [address] Lymphocytes/100 WBC (Bld) 8.0 % Normal [facility] Comment on above: Performed By: #### C BCWD #### [facility] [address] [place] [address] Monocytes (Bld) [#/Vol] 0.4 10*3/uL Normal 0.2-0.8 [facility] Comment on above: Performed By: #### C BCWD #### [facility] [address] [place] [address] Monocytes/100 WBC (Bld) 2.9 % Normal [facility] Comment on above: Performed By: #### C BCWD #### [facility] [address] [place] [address] Neutrophils (Bld) [#/Vol] 9.9 10*3/uL Critically high 1.4-6.5 [facility] Comment on above: Performed By: #### C BCWD #### [facility] [address] [place] [address] Neutrophils/100 WBC (Bld) 84.0 % Normal [facility] Comment on above: Performed By: #### C BCWD #### [facility] [address] [place] [address] Ovalocytes 1+ Normal [facility] Comment on above: Performed By: #### C BCWD #### [facility] [address] [place] [address] Platelet Slide Review Decreased Normal [facility] Comment on above: Performed By: #### C BCWD #### [facility] [address] [place] [address] Poikilocytosis 2+ Normal [facility] Comment on above: Performed By: #### C BCWD #### [facility] [address] [place] [address] Slide Review see below Normal [facility] Comment on above: Result Comment: Slid e review agrees with reported results Performed By: #### C BCWD #### [facility] [address] [place] [address] Smudge Cells 3.8 Normal [facility] Comment on above: Performed By: #### C BCWD #### [facility] [address] [place] [address] Erythrocyte distribution width (RBC) [Ratio] 14.1 % Normal 11.5-14.5 [facility] Comment on above: Performed By: #### C BCWD #### [facility] [address] [place] [address] Hematocrit (Bld) [Volume fraction] 43.3 % Normal 42.0-52.0 [facility] Comment on above: Performed By: #### C BCWD #### [facility] [address] [place] [address] Hemoglobin (Bld) [Mass/Vol] 14.1 g/dL Normal 14.0-18.0 [facility] Comment on above: Performed By: #### C BCWD #### [facility] [address] [place] [address] MCH (RBC) [Entitic mass] 30.0 pg Normal 27.0-31.3 [facility] Comment on above: Performed By: #### C BCWD #### [facility] [address] [place] [address] MCHC 32.6 % Low 33.0-37.0 [facility] Comment on above: Performed By: #### C BCWD #### [facility] [address] [place] [address] MCV (RBC) [Entitic vol] 92.1 fL Normal 79.0-92.2 [facility] Comment on above: Performed By: #### C BCWD #### [facility] [address] [place] [address] Platelets (Bld) [#/Vol] 156 10*3/uL Normal 130-400 [facility] Comment on above: Performed By: #### C BCWD #### [facility] [address] [place] [address] RBC (Bld) [#/Vol] 4.70 10*6/uL Normal 4.70-6.10 [facility] Comment on above: Performed By: #### C BCWD #### [facility] [address] [place] [address] WBC (Bld) [#/Vol] 11.8 10*3/uL Critically high 4.8-10.8 [facility] Comment on above: Performed By: #### C BCWD #### [facility] [address] [place] [address] CT ABDOMEN PELVIS WO CONTRAS Ton 03-27-2023 [...] Clare King MD 03/27/23 Final result Normal [facility] Comprehensive Metabolic Pane bolivar 03-27-2023 Albumin [Mass/Vol] 4.1 g/dL Normal 3.5-4.6 [facility] Comment on above: Performed By: #### C MP #### [facility] [address] [place] [address] ALP [Catalytic activity/Vol] 107 U/L Critically high 35-104 [facility] Comment on above: Performed By: #### C MP #### [facility] [address] [place] [address] ALT [Catalytic activity/Vol] U/L Normal 0-41 [facility] Comment on above: Performed By: #### C MP #### [facility] [address] [place] [address] Anion gap [Moles/Vol] 8 mmol/L Low 9-15 [facility] Comment on above: Performed By: #### C MP #### [facility] [address] [place] [address] AST [Catalytic activity/Vol] 16 U/L Normal 0-40 [facility] Comment on above: Result Comment: Spec imen hemolysis has exceeded the interference as defined by Roel. Value may be falsely increased. Suggest recollection if clinically indicated. Performed By: #### C MP #### [facility] [address] [place] [address] Bilirubin [Mass/Vol] 0.5 mg/dL Normal 0.2-0.7 [facility] Comment on above: Performed By: #### C MP #### [facility] [address] [place] [address] Calcium [Mass/Vol] 9.0 mg/dL Normal 8.5-9.9 [facility] Comment on above: Performed By: #### C MP #### [facility] [address] [place] [address] Chloride [Moles/Vol] 104 mmol/L Normal 95-107 [facility] Comment on above: Performed By: #### C MP #### [facility] [address] [place] [address] CO2 [Moles/Vol] 27 mmol/L Normal 20-31 [facility] Comment on above: Performed By: #### C MP #### [facility] [address] [place] [address] Creatinine [Mass/Vol] 0.90 mg/dL Normal 0.70-1.20 [facility] Comment on above: Performed By: #### C MP #### [facility] [address] [place] [address] GFR >60.0 Normal >60 [facility] Comment on above: Result Comment: Pedi atric [...] secretion. Performed By: #### C MP #### [facility] [address] [place] [address] Globulin (S) [Mass/Vol] 2.7 g/dL Normal 2.3-3.5 [facility] Comment on above: Performed By: #### C MP #### [facility] [address] [place] [address] Glucose [Mass/Vol] 92 mg/dL Normal 70-99 [facility] Comment on above: Performed By: #### C MP #### [facility] [address] [place] [address] Potassium [Moles/Vol] 4.7 mmol/L Normal 3.4-4.9 [facility] Comment on above: Performed By: #### C MP #### [facility] [address] [place] [address] Protein [Mass/Vol] 6.8 g/dL Normal 6.3-8.0 [facility] Comment on above: Performed By: #### C MP #### [facility] [address] [place] [address] Sodium [Moles/Vol] 139 mmol/L Normal 135-144 [facility] Comment on above: Performed By: #### C MP #### [facility] [address] [place] [address] Urea nitrogen [Mass/Vol] 11 mg/dL Normal 6-20 [facility] Comment on above: Performed By: #### C MP #### [facility] [address] [place] [address] Urinalysis, reflex to cultur gee 03-27-2023 Bilirubin Ql (U) Negative Normal Negative [facility] Comment on above: Performed By: #### U AR #### [facility] [address] [place] [address] Clarity (U) Clear Normal Clear [facility] Comment on above: Performed By: #### U AR #### [facility] [address] [place] [address] Color (U) Yellow Normal Straw/[place] [facility] Comment on above: Performed By: #### U AR #### [facility] [address] [place] [address] Glucose Ql (U) Negative Normal Negative [facility] Comment on above: Performed By: #### U AR #### [facility] [address] [place] [address] Hemoglobin Ql (U) Negative Normal Negative [facility] Comment on above: Performed By: #### U AR #### [facility] [address] [place] [address] Ketones Ql (U) Negative Normal Negative [facility] Comment on above: Performed By: #### U AR #### [facility] [address] [place] [address] Leukocyte esterase Test strip Ql (U) Negative Normal Negative [facility] Comment on above: Performed By: #### U AR #### [facility] [address] [place] [address] Nitrite Ql (U) Negative Normal Negative [facility] Comment on above: Performed By: #### U AR #### [facility] [address] [place] [address] pH (U) 7.0 [pH] Normal 5.0-9.0 [facility] Comment on above: Performed By: #### U AR #### [facility] [address] [place] [address] Protein Ql (U) Negative Normal Negative [facility] Comment on above: Performed By: #### U AR #### [facility] [address] [place] [address] Specific gravity (U) [Rel density] 1.009 Normal 1.005-1.03 [facility] Comment on above: Performed By: #### U AR #### [facility] [address] [place] [address] Urine Reflexed to Culture Not Indicated Normal [facility] Comment on above: Performed By: #### U AR #### [facility] [address] [place] [address] Urobilinogen Qn (U) 0.2 {Lucia'U}/dL Normal < 2.0 [facility] Comment on above: Performed By: #### U AR #### [facility] [address] [place] [address] XR HIP 2-3 VW W PELVIS RIGHT [...] Evan Tijerina MD 03/27/23 Final result Normal [facility] XR HAND LEFT (MIN 3 VIEWS)on 02-02-2023 [...] Clare King MD 02/02/23 Final result Normal [facility] CBC AUTO DIFFon 07-20-2022 BASO # 0.1 103/ul Normal 0.0-0.1 [facility] Comment on above: Performed By: #### C BC #### [facility] [address] [address] [address] Tony Roque Basophils/100 WBC (Bld) 1.5 % Normal 0.2-2.0 [facility] Comment on above: Performed By: #### C BC #### [facility] [address] [address] [address] Tony Roque EO # 0.3 103/ul Normal 0.0-0.7 [facility] Comment on above: Performed By: #### C BC #### [facility] [address] [place] [address] Dr. Tony Roque Eosinophils/100 WBC (Bld) 4.4 % Normal 0.9-7.0 [facility] Comment on above: Performed By: #### C BC #### [facility] [address] [address] [address] Tony Roque Erythrocyte distribution width (RBC) [Ratio] 13.7 % Normal 11.0-15.0 [facility] Comment on above: Performed By: #### C BC #### [facility] [address] [place] [address] Dr. Tony Roque Hematocrit (Bld) [Volume fraction] 40.0 % Critically low 42.0-54.0 [facility] Comment on above: Performed By: #### C BC #### [facility] [address] [address] [address] Tony Roque Hemoglobin (Bld) [Mass/Vol] 13.1 g/dL Critically low 14.0-18.0 [facility] Comment on above: Performed By: #### C BC #### [facility] [address] [address] [address] Tony Roque IG # 0.02 10e3/ul Normal 0.00-0.03 [facility] Comment on above: Performed By: #### C BC #### [facility] [address] [place] [address] Dr. Tony Roque IG % 0.3 % Normal 0.0-0.5 [facility] Comment on above: Performed By: #### C BC #### [facility] [address] [place] [address] Dr. Tony Rqoue LYMPH # 1.6 103/ul Normal 1.2-3.8 [facility] Comment on above: Performed By: #### C BC #### [facility] [address] [place] [address] Dr. Tony Roque Lymphocytes/100 WBC (Bld) 27.6 % Normal 20.5-60.0 [facility] Comment on above: Performed By: #### C BC #### [facility] [address] [place] [address] Dr. Tony Roque MANUAL DIFF REQ NO Normal [facility] Comment on above: Performed By: #### C BC #### [facility] [address] [place] [address] Dr. Tony Roque MCH (RBC) [Entitic mass] 29.3 pg Normal 25.9-34.0 [facility] Comment on above: Performed By: #### C BC #### [facility] [address] [place] [address] Dr. Tony Roque MCHC (RBC) [Mass/Vol] 32.8 g/dL Normal 29.9-35.2 [facility] Comment on above: Performed By: #### C BC #### [facility] [address] [place] [address] Dr. Tony Roque MCV (RBC) [Entitic vol] 89.5 fL Normal 80.0-94.0 [facility] Comment on above: Performed By: #### C BC #### [facility] [address] [place] [address] Dr. Tony Roque MONO # 0.7 103/ul Normal 0.3-0.8 [facility] Comment on above: Performed By: #### C BC #### [facility] [address] [place] [address] Dr. Tony Roque Monocytes/100 WBC (Bld) 11.1 % Normal 1.7-12.0 [facility] Comment on above: Performed By: #### C BC #### [facility] [address] [place] [address] Dr. Tony Roque NEUT # 3.3 103/ul Normal 1.4-6.5 [facility] Comment on above: Performed By: #### C BC #### [facility] [address] [place] [address] Dr. Tony Roque Neutrophils/100 WBC (Bld) 55.1 % Normal 43.0-75.0 [facility] Comment on above: Performed By: #### C BC #### [facility] [address] [place] [address] Dr. Tony Roque Platelet mean volume (Bld) [Entitic vol] 11.6 fL Normal 9.5-13.5 [facility] Comment on above: Performed By: #### C BC #### [facility] [address] [place] [address] Dr. Tony Roque PLT 197 103/ul Normal 150-450 [facility] Comment on above: Performed By: #### C BC #### [facility] [address] [place] [address] Dr. Tony Roque RBC 4.47 106/ul Critically low 4.70-6.10 [facility] Comment on above: Performed By: #### C BC #### [facility] [address] [place] [address] Dr. Tony Roque WBC 6.0 103/ul Normal 4.0-11.0 [facility] Comment on above: Performed By: #### C BC #### [facility] [address] [place] [address] Dr. Tony Roque PROF CHEM 8 (BAS METB)on Anion gap [Moles/Vol] 10.5 mmol/L Normal [facility] Comment on above: Performed By: #### B MP #### [facility] [address] [place], [place] [id number] Dr. Tony Roque Calcium [Mass/Vol] 8.3 mg/dL Critically low 8.5-10.1 [facility] Comment on above: Performed By: #### B MP #### [facility] [address] [place] [address] Dr. Tony Roque Chloride [Moles/Vol] 106 mmol/L Normal 98-107 [facility] Comment on above: Performed By: #### B MP #### [facility] [address] [address] [address] Tony Roque CO2 [Moles/Vol] 27.1 mmol/L Normal 21.0-32.0 [facility] Comment on above: Performed By: #### B MP #### [facility] [address] [place] [address] Dr. Tony Roque Creatinine [Mass/Vol] 1.05 mg/dL Normal 0.70-1.30 [facility] Comment on above: Performed By: #### B MP #### [facility] [address] [place] [address] Dr. Tony Roque EGFR-AF GRENADIAN >60 Normal >=60 [facility] Comment on above: Performed By: #### B MP #### [facility] [address] [place] [address] Dr. Tony Roque EGFR-NON AF GRENADIAN >60 Normal >=60 [facility] Comment on above: Performed By: #### B MP #### [facility] [address] [place] [address] Dr. Tony Roque Glucose [Mass/Vol] 100 mg/dL Normal 74-106 [facility] Comment on above: Performed By: #### B MP #### [facility] [address] [address] [address] Tony Roque Potassium [Moles/Vol] 4.6 mmol/L Normal 3.5-5.1 [facility] Comment on above: Performed By: #### B MP #### [facility] [address] [place] [address] Dr. Tony Roque Sodium [Moles/Vol] 139 mmol/L Normal 136-145 [facility] Comment on above: Performed By: #### B MP #### [facility] [address] [place] [address] Dr. Tony Roque Urea nitrogen [Mass/Vol] 21.0 mg/dL Critically high 7.0-18.0 [facility] Comment on above: Performed By: #### B MP #### [facility] [address] [place] [address] Dr. Tony Roque Urea nitrogen/Creatinine [Mass ratio] 20.0 mg/mg Normal [facility] Comment on above: Performed By: #### B MP #### [facility] [address] [place] [address] Dr. Tony Roque CBC AUTO DIFFon 07-19-2022 BASO # 0.1 103/ul Normal 0.0-0.1 [facility] Comment on above: Performed By: #### C BC #### [facility] [address] [place] [address] Dr. Tony Roque Basophils/100 WBC (Bld) 1.2 % Normal 0.2-2.0 [facility] Comment on above: Performed By: #### C BC #### [facility] [address] [place] [address] Dr. Tony Roque EO # 0.1 103/ul Normal 0.0-0.7 [facility] Comment on above: Performed By: #### C BC #### [facility] [address] [place] [address] Dr. Tony Roque Eosinophils/100 WBC (Bld) 1.6 % Normal 0.9-7.0 [facility] Comment on above: Performed By: #### C BC #### [facility] [address] [place] [address] Dr. Tony Roque Erythrocyte distribution width (RBC) [Ratio] 13.4 % Normal 11.0-15.0 [facility] Comment on above: Performed By: #### C BC #### [facility] [address] [place] [address] Dr. Tony Roque Hematocrit (Bld) [Volume fraction] 44.8 % Normal 42.0-54.0 [facility] Comment on above: Performed By: #### C BC #### [facility] [address] [place] [address] Dr. Tony Roque Hemoglobin (Bld) [Mass/Vol] 15.1 g/dL Normal 14.0-18.0 [facility] Comment on above: Performed By: #### C BC #### [facility] [address] [place] [address] Dr. Tony Roque IG # 0.04 10e3/ul Critically high 0.00-0.03 [facility] Comment on above: Performed By: #### C BC #### [facility] [address] [place] [address] Dr. Tony Roque IG % 0.6 % Critically high 0.0-0.5 [facility] Comment on above: Performed By: #### C BC #### [facility] [address] [place] [address] Dr. Tony Roque LYMPH # 1.1 103/ul Critically low 1.2-3.8 [facility] Comment on above: Performed By: #### C BC #### [facility] [address] [place] [address] Dr. Tony Roque Lymphocytes/100 WBC (Bld) 16.6 % Critically low 20.5-60.0 [facility] Comment on above: Performed By: #### C BC #### [facility] [address] [place] [address] Dr. Tony Roque MANUAL DIFF REQ NO Normal [facility] Comment on above: Performed By: #### C BC #### [facility] [address] [place] [address] Dr. Tony Roque MCH (RBC) [Entitic mass] 29.7 pg Normal 25.9-34.0 [facility] Comment on above: Performed By: #### C BC #### [facility] [address] [place] [address] Dr. Tony Roque MCHC (RBC) [Mass/Vol] 33.7 g/dL Normal 29.9-35.2 [facility] Comment on above: Performed By: #### C BC #### [facility] [address] [address] [address] Tony Roque MCV (RBC) [Entitic vol] 88.2 fL Normal 80.0-94.0 [facility] Comment on above: Performed By: #### C BC #### [facility] [address] [address] [address] Tony Roque MONO # 0.6 103/ul Normal 0.3-0.8 [facility] Comment on above: Performed By: #### C BC #### [facility] [address] [place] [address] Dr. Tony Roque Monocytes/100 WBC (Bld) 9.0 % Normal 1.7-12.0 [facility] Comment on above: Performed By: #### C BC #### [facility] [address] [place] [address] Dr. Tony Roque NEUT # 4.7 103/ul Normal 1.4-6.5 [facility] Comment on above: Performed By: #### C BC #### [facility] [address] [place] [address] Dr. Tony Roque Neutrophils/100 WBC (Bld) 71.0 % Normal 43.0-75.0 [facility] Comment on above: Performed By: #### C BC #### [facility] [address] [place] [address] Dr. Tony Roque Platelet mean volume (Bld) [Entitic vol] 11.2 fL Normal 9.5-13.5 [facility] Comment on above: Performed By: #### C BC #### [facility] [address] [place] [address] Dr. Tony Roque PLT 246 103/ul Normal 150-450 [facility] Comment on above: Performed By: #### C BC #### [facility] [address] [place] [address] Dr. Tony Roque RBC 5.08 106/ul Normal 4.70-6.10 [facility] Comment on above: Performed By: #### C BC #### [facility] [address] [place] [address] Dr. Tony Roque WBC 6.7 103/ul Normal 4.0-11.0 [facility] Comment on above: Performed By: #### C BC #### [facility] [address] [place] [address] Dr. Tony Roque CRPon 07-19-2022 CRP [Mass/Vol] mg/L Normal <=1.0 [facility] Comment on above: Performed By: #### C RP, CMP #### [facility] [address] [place] [address] Dr. Tony Roque CULTURE BLOODon 07-19-2022 Microscopic examination of blood, culture Culture Observations: NO GROWTH AT 5 DAYS. Normal [facility] Comment on above: Performed By: #### L ACT #### [facility] [address] [place] [address] Dr. Tony Roque Microscopic examination of blood, culture Culture Observations: NO GROWTH AT 5 DAYS. Isolate 1 BC_BA_NA Normal [facility] Comment on above: Performed By: #### L ACT #### [facility] [address] [place] [address] Dr. oTny Roque [facility] SARS-CoV-2 (COVID-19) RNA CLARI+probe Ql (Unsp spec) Not detected Normal NOT DETECTED [facility] Comment on above: Result Comment: When diagnostic [...] for this test is supported by the [place] of Health and Human Service's declaration that [...] used). Performed By: #### L ACT #### [facility] [address] [place] [address] Dr. Tony Roque LACTATE/LACTIC ACIDon 2022 Lactate [Moles/Vol] 1.3 mmol/L Normal 0.4-2.0 [facility] Comment on above: Performed By: #### L ACT #### [facility] [address] [place] [address] Dr. Tony Roque PROF 14(COMP METB)on 023 Albumin [Mass/Vol] 3.8 g/dL Normal 3.4-5.0 [facility] Comment on above: Performed By: #### C RP, CMP #### [facility] [address] [place] [address] Dr. Tony Roque Albumin/Globulin [Mass ratio] 1.0 {ratio} Normal [facility] Comment on above: Performed By: #### C RP, CMP #### [facility] [address] [place] [address] Dr. Tony Roque ALP [Catalytic activity/Vol] 124 U/L Critically high 46-116 [facility] Comment on above: Performed By: #### C RP, CMP #### [facility] [address] [place] [address] Dr. Tony Roque ALT [Catalytic activity/Vol] 13 U/L Critically low 16-63 [facility] Comment on above: Performed By: #### C RP, CMP #### [facility] [address] [place] [address] Dr. Tony Roque Anion gap [Moles/Vol] 11.5 mmol/L Normal [facility] Comment on above: Performed By: #### C RP, CMP #### [facility] [address] [place] [address] Dr. Tony Roque AST [Catalytic activity/Vol] 13 U/L Critically low 15-37 [facility] Comment on above: Performed By: #### C RP, CMP #### [facility] [address] [place] [address] Dr. Tony Roque Bilirubin [Mass/Vol] 0.5 mg/dL Normal 0.2-1.0 [facility] Comment on above: Performed By: #### C RP, CMP #### [facility] [address] [place] [address] Dr. Tony Roque Calcium [Mass/Vol] 9.4 mg/dL Normal 8.5-10.1 [facility] Comment on above: Performed By: #### C RP, CMP #### [facility] [address] [place] [address] Dr. Tony Roque Chloride [Moles/Vol] 103 mmol/L Normal 98-107 [facility] Comment on above: Performed By: #### C RP, CMP #### [facility] [address] [place] [address] Dr. Tony Roque CO2 [Moles/Vol] 28.2 mmol/L Normal 21.0-32.0 [facility] Comment on above: Performed By: #### C RP, CMP #### [facility] [address] [place] [address] Dr. Tony Roque Creatinine [Mass/Vol] 0.86 mg/dL Normal 0.70-1.30 [facility] Comment on above: Performed By: #### C RP, CMP #### [facility] [address] [place] [address] Dr. Tony Roque EGFR-AF GRENADIAN >60 Normal >=[address] [facility] Comment on above: Performed By: #### C RP, CMP #### [facility] [address] [place] [address] Dr. Tony Roque EGFR-NON AF GRENADIAN >60 Normal >=60 [facility] Comment on above: Performed By: #### C RP, CMP #### [facility] [address] [place] [address] Dr. Tony Roque Globulin (S) [Mass/Vol] 3.8 g/dL Normal [facility] Comment on above: Performed By: #### C RP, CMP #### [facility] [address] [address] [address] Tony Roque Glucose [Mass/Vol] 114 mg/dL Critically high 74-106 [facility] Comment on above: Performed By: #### C RP, CMP #### [facility] [address] [address] [address] Tony Roque Potassium [Moles/Vol] 3.7 mmol/L Normal 3.5-5.1 [facility] Comment on above: Performed By: #### C RP, CMP #### [facility] [address] [address] [address] Tony Roque Protein [Mass/Vol] 7.6 g/dL Normal 6.4-8.2 [facility] Comment on above: Performed By: #### C RP, CMP #### [facility] [address] [place] [address] Dr. Tony Roque Sodium [Moles/Vol] 139 mmol/L Normal 136-145 [facility] Comment on above: Performed By: #### C RP, CMP #### [facility] [address] [place] [address] Dr. Tony Roque Urea nitrogen [Mass/Vol] 10.0 mg/dL Normal 7.0-18.0 [facility] Comment on above: Performed By: #### C RP, CMP #### [facility] [address] [place] [address] Dr. Tony Roque Urea nitrogen/Creatinine [Mass ratio] 11.6 mg/mg Normal [facility] Comment on above: Performed By: #### C RP, CMP #### [facility] [address] [place] [address] Dr. Tony Roque TROPONIN, HIGH SENSITIVITYon 07-19-2022 HSTROP 4.1 pg/mL Normal 4.0-76.1 [facility] Comment on above: Result Comment: CUT- OFF POINTS HAVE BEEN ESTABLISHED BASED ON THE FOURTH UNIVERSAL DEFINITIONS OF MYOCARDIAL INFARCTION. THE UPPER REFERENCE LIMIT (URL) OF TROPONIN, DEFINED THE 99TH PERCENTILE OF cTnI DISTRIBUTION IN A REFERENCE POPULATION, HAS BEEN CONFIRMED THE DECISION THRESHOLD FOR [place] DIAGNOSIS. Performed By: #### H STROPN #### [facility] [address] [address] [address] Tony Roque XR FOOT LT 2Von 06-20-2022 XR FOOT [...] by: KARLA MANZANO Date: 2022-06-20 07:03 Normal [facility] XR FOOT LT MIN 3 VIEWSon XR [...] by: KARLA MANZANO Date: 2022-06-20 07:05 Normal [facility] POINT OF CARE GLUCOSEon 03-0 Glucose [Mass/Vol] 95 mg/dL Normal 74-106 [facility] Comment on above: Performed By: #### P OCGLUC #### [facility] [address] [address] [address] Tony Roque Glucose [Mass/Vol] 123 mg/dL Critically high 74-106 [facility] Comment on above: Performed By: #### P OCGLUC #### [facility] [address] [address] [address] Tony Roque PROF CHEM 8 (BAS METB)on Anion gap [Moles/Vol] 9.0 mmol/L [facility] Comment on above: Performed By: #### B MP #### [facility] [address] [address] [address] Tony Roque Calcium [Mass/Vol] 8.9 mg/dL Normal 8.5-10.1 [facility] Comment on above: Performed By: #### B MP #### [facility] [address] [place] [address] Dr. Tony Roque Chloride [Moles/Vol] 107 mmol/L Normal 98-107 [facility] Comment on above: Performed By: #### B MP #### [facility] [address] [address] [address] Tony Roque CO2 [Moles/Vol] 31.8 mmol/L Normal 21.0-32.[address] [facility] Comment on above: Performed By: #### B MP #### [facility] [address] [place] [address] Dr. Tony Roque Creatinine [Mass/Vol] 0.77 mg/dL Normal 0.70-1.30 [facility] Comment on above: Performed By: #### B MP #### [facility] [address] [place] [address] Dr. Tony Roque EGFR-AF GRENADIAN >60 Normal >=[address] [facility] Comment on above: Performed By: #### B MP #### [facility] [address] [place] [address] Dr. Tony Roque EGFR-NON AF GRENADIAN >60 Normal >=60 [facility] Comment on above: Performed By: #### B MP #### [facility] [address] [place] [address] Dr. Tony Roque Glucose [Mass/Vol] 83 mg/dL Normal 74-106 [facility] Comment on above: Performed By: #### B MP #### [facility] [address] [address] [address] Tony Roque Potassium [Moles/Vol] 3.8 mmol/L Normal 3.5-5.1 [facility] Comment on above: Performed By: #### B MP #### [facility] [address] [place] [address] Dr. Tony Roque Sodium [Moles/Vol] 144 mmol/L Normal 136-145 [facility] Comment on above: Performed By: #### B MP #### [facility] [address] [address] [address] Tony Roque Urea nitrogen [Mass/Vol] 10.0 mg/dL Normal 7.0-18.0 [facility] Comment on above: Performed By: #### B MP #### [facility] [id number] Tony Roque Urea nitrogen/Creatinine [Mass ratio] 13.0 mg/mg Normal [facility] Comment on above: Performed By: #### B MP #### [facility] [address] ANKLE LT WO CONon 022 CT ANKLE LT WO CON EXAMINATION: CT ANKL E LT WO CON HISTORY: Chronic osteomyelitis with [...] by: SAURAV KERNS Date: 2021-11-14 18:02 Normal [facility] Consenton 11-04-2021 Consent [id number]#1. 00CD:[address] [facility] Registrationon 11-04-2021 Registration [id number]#1. 00CD:[address] [facility] Creatinine and Glomerular fi ltration rate.predicted panel (S/P/Bld)Ordered By: Scott Rodriguez on 09-19-2021 Creatinine [Mass/Vol] 1.37 mg/dL 0.64-1.27 [facility] Estimated glomerular filtrat ion rate (GFR) non- AmericanOrdered By: Scott Rodriguez on 09-19-2021 GFR/1.73 sq M.predicted among non-blacks MDRD (S/P/Bld) [Vol rate/Area] 54 mL/Min [facility] No Panel InformationOrdered By: Scott Rodriguez on 09-19-2021 Estimated GFR () > 60 mL/Min [facility] Comment on above: GFR estimated refere nce range: According to KDOQI guidelines, <60 ml/min/1.73m2 is sufficient to diagnose a patient with chronic kidney disease. Pharmacy Creatinine Clearance (Chem 62.[address] [facility] [address] ANKLE LT WO CONon 022 CT ANKLE LT WO CON EXAMINATION: CT ANKL E LT WO CON HISTORY: Nonunion of fracture [...] stable in appearance. Marked degenerative changes with [id number] articulation and remodeling of the tibiotalar joint. [...] by: SHIRLEY CASTILLO Date: 2021-09-18 16:30 Normal [facility] Basic Metabolic Panelon 05-0 Calcium [Mass/Vol] 9.7467652 mg/dL Normal 8.2-10 .2 mg/dL [facility] Other Chloride [Moles/Vol] 105 mmol/L Normal 95-114 mmol/L [facility] Other CO2 [Moles/Vol] 24.37009580 mmol/L Normal 22.0-3 0.0 mmol/L [facility] Other Creatinine [Mass/Vol] 1.65902622 mg/dL Normal 0. 64-1.27 mg/dL [facility] Other Glucose [Mass/Vol] 77 mg/dL Normal 70-100 mg/dL [facility] [employer] Other Potassium [Moles/Vol] 4.34834607 mmol/L Normal 3 .5-5.1 mmol/L [facility] Other Sodium [Moles/Vol] 137 mmol/L Normal 136-146 mmol/L [facility] Other Urea nitrogen [Mass/Vol] 17 mg/dL Normal 9-23 mg/dL [facility] Other Basic Metabolic Panel > 60 [facility] [employer] Other C-Reactive Proteinon 022 C-Reactive Protein 0.7 mg/dL Normal 0.0-1.0 mg/dL [facility] Other Complete Blood Count Auto Di ffon 08-16-2021 Basophils (Bld) [#/Vol] 0.540128882 10*3/uL Normal 0.0-0.2 10*3/uL [facility] Other Basophils/100 WBC (Bld) 1.800 % . % [facility] Other Eosinophils (Bld) [#/Vol] 0.643630685 10*3/uL Normal 0.0-0.45 10*3/uL [facility] Other Eosinophils/100 WBC (Bld) 2.600 % . % [facility] Other Erythrocyte distribution width (RBC) [Ratio] 14.800 % Normal 12.0-14.8 % [facility] Other Hematocrit (Bld) [Volume fraction] 36.200 % Low 38.8-50.0 % [facility] Other Hemoglobin (Bld) [Mass/Vol] 12.443443 g/dL Low 13.0-17.0 g/dL [facility] Other Lymphocytes (Bld) [#/Vol] 1.628223556 10*3/uL Normal 1.00-4.8 10*3/uL [facility] Other Lymphocytes/100 WBC (Bld) 23.800 % . % [facility] Other MCH (RBC) [Entitic mass] 29.3000 pg Normal 27.5-35.2 pg [facility] Other MCV (RBC) [Entitic vol] 86.8000 fL Normal 83.5-101 fL [facility] Other Monocytes (Bld) [#/Vol] 0.148361350 10*3/uL Normal 0.0-0.8 10*3/uL [facility] Other Monocytes/100 WBC (Bld) 7.900 % . % [facility] Other Neutrophils (Bld) [#/Vol] 4.879319476 10*3/uL Normal 1.8-7.7 10*3/uL [facility] Other Neutrophils/100 WBC (Bld) 63.900 % . % [facility] Other Platelet mean volume (Bld) [Entitic vol] 9.4000 fL Normal 6.6-10.1 fL [facility] Other Platelets (Bld) [#/Vol] 222 10*3/uL Normal 150-450 10*3/uL [facility] Other RBC (Bld) [#/Vol] 4.2689299481 10*6/uL Normal 3. 90-5.60 10*6/uL [facility] Other WBC (Bld) [#/Vol] 6.871809229 10*3/uL Normal 4.1 -10.5 10*3/uL [facility] Other Complete Blood Count Auto Diff 6.2 10*3/uL Normal 4.5-11.0 10*3/uL [facility] Other Complete Blood Count Auto Diff 33.7 g/dL Normal 32.5-35.6 g/dL [facility] Other Complete Blood Count Auto Diff 0.0 % Normal 0-0.5 % [facility] Other ED Note-Physicianon 06-23-19 ED Note-Physician Basic Information Time Seen: Melissa CANADA, Na Elias 06/15/2021 16:09 Chief Complaint L foot/ankle pain. [...] ankle fracture and underwent surgical repair in [place]. He said following that repair he had to have another surgery for an ankle fusion which was done at [facility] by Dr. Hart. Patient tells me he [...] weakness and erythema. Patient has been taking [place] and tramadol and naproxen for the pain without relief. He denies any new trauma or injury. 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 Normal [facility] Comment on above: Result Comment: Elec tronically Signed By: Melissa CANA[place], Na Elias\.br\Date and Time Signed: 06/16/21 19:16 EST\.br\Electronically Co-Signed By: Ryan Veronica DO.br\Date and Time Co-Signed: 06/22/21 12:55 EST Coding Summary.on 06-20-2021 Coding Summary. CD:[id number] G h0bWw+PGhlYWQ+JN1QPDR yS73weQQnhY5UX2pOGE3V XNUQRGBXDM0BPR1mkNX5H BclQ1GymsOi FatzcCNeQX62RNg4BZD9z TxrCMgdhC0itDAcM5h4Py HjAQ14jQ79NTjtFNDfRxK 3LjZpbjsgbWFy X7vhYzOmsWJkPps+PHRhY mxlIHdpZHRoPScxMDAlJy PxdDbbLH2zXh2dTJPvVEC vbGxhcHNlOiBj p2scIKBrACyjSI3raZtxV 8VdjTV3TSGhc6z2Ug90uW I+FMDfBKT6vRuyRFvkj26 2MvIsw5vgODH4 cYHfTAvfVOJ2O29jx4F7Y FZtJWBdBHZ1sXQ9iH9lwX ytwfjmC3WxeUAvIuY1KKU 2hJPkoU0bySyr ujkmwS5iZte+Y09PDE9EW XSXVQ5NRul7I5AiGibsjH I+QQ57AOQoQZ22bJGqsLX ht0pdkBl8MwOn YIOmKJI6dBawDFgox3DgZ HEnS70mxJIke0Q0RTUszI yurRNyYjDprDG8wX0zSNz dshwkb3pobpgc Qxbfp9hxap62cN57N44hB PglUPEtBZC9DOGqIBIosT vjgd1nkO8mTw6+HLclt1y dp1oyhBd7BuBr THPrfcSlzImrRWK9h6LfV n37J2OuwTiag3WwYac3bi 07pWLzh7U3gRA9LQvgVTY zxK1iWDfwArV5 UUYfLnJdyE46mYLiFZyfM s2hjKznaYbqSZ9bTZHiaj vhFVMxkQ5iMXQrwOIkfEr vPD4eBLJxgfbp y461EkYnWMO9LPWfpTBrR 6PrhF3oUyVfKAGcIARjI5 FhdHXnBYctC131KOkeTwE 3EICsydRmA3Pc RSRjdMbdUnY7j9W3Xy3Ev 6WgmvswVWF6UKbiWRXaIs UyDxSsGrN9E5UhJzx1YJU pbEfnXH2mU6Gb KONyquahjouirWA1NKShA BXllU95dJMdNJnpVu6wn7 S3p746YPXkVRPioV41Pr8 udDogMTBwdCBU dS0oosbzu4azqfjnUvFaD CKqSMe6NRv6TXTiaNgrIv WeNTR1QnG4MFL8lALaxD4 xfJeitdoexA7r Oyc+N89azZ3uWIQ0NSQ9e vwvJEXhhtGeBL03KG93Y4 RyPjwvdGFibGU+PGRpdiB moEtcKF0qCdLs a6jec0RgTNxxN6KiVSWvL AqeIfl1ITHdQGD8aUP8nU 3tMBVnVHfxt1K7dMR2J7U cmnDrmt7wq2ab AXTdVMzdO71vsDNgu2I9X IXbrTB8DPSddJggCrBxfY 93Oyc+JNGpzWwnn1TqDdu pz6wmq7oahVl5 SfXiYQTcuwUisVvsLQP6c 9ZbHh35Q19dIIfiEYVcBV RrEUWwAYYnhFlols3usW6 wIi8+PGNvbCB3 qKR6gP3rOSEuLuN0FNfpG 727HqJksOOdPwolu4vch3 lkwUg0YjIpLZRwjuOntAm zSNS3k7UsQm21 Y78sCGhaDFMuECGvKKZcS MZjpKeeds7snM5kUp2+PC 4oq9ziss07uT70zFR+PHR cAZW3dIlfJEgt BEUdzM5lPZinOqJ4ZOHeJ bZuaF06oIViFIjcRa3ovG tauRcwLR4hMAXrpbkdq40 5MaVhe3wcOPUv xKEwAXtfWBR5S23rm4A2K DPqLWEwGDT5oBV6bF0dhX lnbjogbGVmdDsgdmVydGl mKAmxZIyeN240 IHRvcDsnPlBhdGllbnQgT oUaPSd5R2YaNmn8XEZgtW bxGF3beCIjONlvEn0zgKd mtSjpGS2vNHQn vdcqt387DaYfm9taLKEbn NPlZYshPIB3X29ex2O2XQ JrIQMcBIK3nBB0tX9fcDn nbjogbGVmdDsg uuYjrItsEZqzHMpoN199X HRvcDsnPkJpcnRoIERhdG M5QI66SK95uYZzb3H3sDY 5F0MwSAQonjlf sdlzhIJ5RFDzIWKwfV64U y2jwHdtMu0tHAKdDGA3JA DpgVHhJ2JbcM6sXuDsYLP uZQLsM6EufYSj NPoxX928NYrvAxJ8CWMis zRuR3GaZYXlvYtsHiI2o6 A6Gq1MC8Y8CR75CI36vTO dn9B4uVA8V7Sn YYBwzdcafksnoUP4BACsW VTmdQ76In9zeHyxAf3fPB JzKDN2MTHgxQLtO8PonE7 yOiAjMDAwMDAw D0PtuLOtNOcdT557YXiiZ kT2HJAjzdVaG4XfSUIspK zjUyI0u9F2Th7MCKi8SO5 4PA50pRLaj4C2 dVM7A0BiRJGcveiphruvd FG5KKWqACCxdA61Fb3kqS vlKd9eTYLxHXK3WOJwnDU yT0XzsU5aQlSi VDUcCUOtA6BqgVQmBDpkA 349XCraOwQ9OCThpoWwA9 YwTZBmjRtnZvS3m7J2Cq0 OWDYbEO17CMJ2 tCB7JH40YD13K0DuFgxok GFibGU+PHRhYmxlIHdpZH RoPScxMDAlJyBzdHlsZT0 aZy8eDHXjFXPy qJhicSXoNnQoh8sdKYBnE TtsYU1jxKseW4WntDT3UN Bnh6v0Rh62K44uV4JocJU +VXYbqQE3dJO6 tF0xXlPxMfB6SXmxY994B jLyrOTrKybdy8pvs8fjqL q9UaV1MIQbrfQnkOohVPN 2j1FoGs06N78f IHdpZHRoPSIxNSUiIHZhb Wyxwx4lsE2kYd0+PGNvbC J0tLP3iS1nIjBgLtC6CKr cM438GjYyyHAb Gqmbn7tpt7uolBr5LwOjA JUebkAvvLseNKD4f7PwXa 60H5XgdNyxi2UpWvq1oc6 1lGGrs2E7hXP9 H0XwJXZbpogbnBZunQqbN F3kAJAfavvlYZZtaU1mGS CwE6t3RjLrLaX5ILgsO5B uqeK3TDFwwATg WUxrYEW3G51qq6H5POHuC MYsXEX5mVN6aO0evWedye ogbGVmdDsgdmVydGljYWw rCLnxM145PNCy pZbqLWXwrI3zLXDslALed RqqGO6yBFCwbtrhUhEVUQ LAF6XcMINQYJOdLFqakEC +ZABkCQB4nJfc FGirLGZdmU6oHUCwC1g4V hVfVgV7KBivL6LkCQGwvo gwAg79sX5lDhHwNxA4TBx lF5MienT1OZCy wDLyWRbmVFQ3H34qt9F3Y TXiELJkYTW3yST6mF8biH lnbjogbGVmdDsgdmVydGl yVKvtZVafM364 HZZyeGlcQjY2CpZ7RqL8Q qG4C2AqCcm0XKYrsHnzSC 1txWUfKRftOq8ftZifkTy dJY1pYHSwcbuz TTEfwZ3fCXRmlAXjaEhyB V3rQINgjaagr553AhZvNL P0QFYmkFUmH2XrpL1iUcY iVIApXPJrH7Cr pHDoTYqpQ532LYcpMkD7Q YFkqpBiU8ZmAMGqvBfpWn L1o4F0Pa16KWTCAJEsdmi vdGQ+PHRkIHN0 fIfjVUnhKQMniS4iUHDzG 5j2VnPoIkN6NKqsX5PaWY MyudfuEs67mA5oStPlAiJ 0CLfvQ2MbhwT8 IEVtyMKyFDrtVGC5K18li 9Z6RCBxUPKiTOX1aDH8rO 1hbGlnbjogbGVmdDsgdmV ydGljYWwtYWxp E185HDMoiIxkBb3nfFA8A 0WvGbv9MYLniLwnLQ5otB MxRVbcVr9wxGsljByhGK7 wNTBpbjtwYWRk rT5mPJGjpPWpmDozSI4zJ VOcikcaw352UlLpCXY0HX NzhDLaB4QpbQ6tNaCaRWJ wHCWpO3GeeZAw AYccM523WKfrKyZ4GSObw eThO3UtFZIqtQfuUeB5w3 N7Wz3GbRTtQ0KaD3v4M5M kPjwvdHI+PC90 LTZmSM18rZYhkSTkk2eor Rx9QxJyAMRsDBF0bNyaHD txv8JbJWQfY16scYWay0X 6IGNvbGxhcHNl DoOejME0gH3hIPbvxfnnm 4voxlnzNoyfk8vdju19wA 23D41eXKufFTJuOVAaDED yLRDppHikji8u rO3vVi2+YAYybPV4eUW2g Y8qRaVaRtA1LIkfH925Kp IsqAVsSylsh8xek7kwvHp 9IjIwJSIgdmFs pKurNHS0w5HvWm92F27dE HdpZHRoPSIyMCUiIHZhbG xnyd5glV6sCm5+PO6yb0h fhi43eR59mQR+ AVUoEMK3cAaoKQpjHQMrn L1zFOlqYjR0KMEeIbDmgN 71vAYySKhuSd4dgMulvUs jQC6xZJAsrlgf l606IjQlt9cmFKEpnGCzK YkoZMO8Z47pb2I1AMNfLC WlLHK7gON5vK8yuIoujqe gbGVmdDsgdmVy kJteCFxqBUhcV684FZDgj BkwVhAuyQCaN7nkflFEZJ 1lOjwvdGQ+HOReNEP3iCl oKSdgZGMqkZ5p HDPsR1x2AdGkGmZ8TEdlX 6HygiM2EJNcwLAaGRUxaS PKqT3kmzxec0tymxoxHfC wSXNoBLn1MDv4 IBAmpYvyVhJgMHY2XcN6O SK2vVBjzR9ndZuvbnqdgH 9wOyc+RklOOjwvdGQ+PHR dFZU3aPubSQyn LEFwiZ7qUZRkZ4z2LpSqE pB6PCvcX9DprbQ1AFZclY AhGYNbfPBPcK9tngmjb6b vcjogIzAwMDAw RNk7MMd9YYVyqMlvBuOiA FB0QaG5RGH0eWZfcH4tdV qnllrccX1rXlw+TVJOOjw vdGQ+PHRkIHN0 uBatCNewDWMklA3vTOSsW 1h7ZkXnDxF1XFjjN0Eyji E2QKUilTAmPKGvcPKSgL9 dbzydr2gjspah EwUcPHWsROq3BPj8UQFqj BqmMhJpRUY2XhE6YQU2lH SovK4tgVfzrwtdlF8qEby +KIP1VVA7BG16 JP67V7IgDclgsJClwFV+P HRhYmxlIHdpZHRoPScxMD OyYoWxtYvyTY6oSs1nLZK yLWNvbGxhcHNl OiBj (more content not included)... Normal [facility] ED Noteon 06-19-2021 ED Note Culture results sent to [facility]. Normal [facility] ED Noteon 06-17-2021 ED Note Chandnicamille Wylie from [facility] Surgical dept. called to see if we performed a covid test while the patient was here on Thursday06/15/2021. She verified the information and I advised her we did not. That's all they needed. Normal [facility] CT Lower Extremity w/ Contra st [...] Comments Contrast amount in ml's: [address] [facility] ED Clinical Summaryon 2021 ED Clinical Summary [place] [id number] ED Clinical Summary Person Information Name: SANDRA BOSS [place] Age: 55 Years : 1965 Sex: Male Language: Telugu PCP: CLARE BRANDT DO Marital Status: Visit [...] 06/16/2021 02:23:28 06/16/2021 02:23:28 06/16/2021 02:23:28 ADDRESS: [id number] [place] [id number] PHYS DOC NOTES: MEDICAL INFORMATION: Prescriptions Given: Medications to Continue with No Changes Other Medications acetaminophen-hydroco done ([place]mu[place] 325 mg-5 mg oral tablet) 1 Tablets [...] Follow up: DIAGNOSIS: 1:Osteomyelitis of ankle Normal [facility] ED Noteon 06-16-2021 ED Note 2046-Called podiatry group at [facility] with which patient follows with Dr. Delaney. Attending Dr. Veronica spoke with on-call foundry manager Dr. Fair. 2101-Called [facility] and spoke with Lisandra, hospital supervisor machine setter. Faxed facesheet.Dr. Goldstein is attending hospitalist. 2107-Lisandra returned call and stated Dr. Goldstein accepts. Patient going to 213. 2128-called [facility] for [facility]. ETA 0230. As patient has no insurance [facility] to call back with pricing. Stated patient had to pay upfront or either hospital needed to take financial responsibility. solid plasterer Paige spoke with ER supervisor machine setter Yolis who stated [facility] would accept cost. [facility] paperwork faxed. Awaiting return call for cost. [facility] Marielos. Report #-[phone] ext [phone] [facility] ED Patient Education Noteon 06-16-2021 ED Patient Education Note Normal [facility] ED Patient Summaryon 022 ED Patient Summary [address] [address] Patient Discharge Instructions Person Information Name: SANDRA BOSS Age: 55 Years Arrival Date: 06/15/2021 14:24:40 Discharge Diagnosis: 1:Osteomyelitis of ankle Primary Care Physician: CLARE BRANDT DO Provider Information Primary Provider: Ryan Veronica DO Advanced Product Engineering Manager:Na Torres PA-C The exam and treatment you received in the Emergency Department were for an urgent problem and are not intended as complete care. It is important that you follow up with a doctor, nurse practitioner, or physician?s admissions assistant for ongoing care. If your symptoms [...] opioids can be used to help relieve vovjgarw-lt-ftojio pain and are often prescribed following a [...] guidance from the Food and Drug Administration (www.fda.gov/Drugs/Re sourcesForYou). ? Visit www.cdc.gov/drugoverd ose to learn about the risks of opioids abuse and overdose. ? If you believe you may be struggling with addiction, tell your health physician locums urgent care and ask for guidance or call [facility] National Helpline at 9-841-325-HELP. v Source: [place] Department of Health and Human Services/Center for Disease Control & Prevention [facility] Medications Given: Medication Dos (more content not included)... Normal [facility] Progress Note-Nurseon 2021 Progress Note-Nurse Pt. resting with eye s closed, and unlabored respirations. Orphenadrine not given at this time, Dr. James aware. Normal [facility] Progress Note-Nurse Called report to [facility] spoke with Mildred CINTRON for room 213 Patient updated on poc and call light in reach Normal [facility] Transfer Documentson 022 Transfer Documents [id number] [facility] US LE Venous Duplex Lefton 0 [...] M.D. Transcribed by: LUKASZ Technologist: YESSY Normal [facility] Auto Diffon 06-15-2021 Basophils/100 WBC (Bld) 0.4 % Normal 0.0-2.[address] [facility] Comment on above: Order Comment: Order Added by Discern Expert. Performed By: #### 2 682862, 66576587, 2313730, 0990749, 06496561, 9042314, 5080350 ####[facility] [address] [place] [address] Basophils/Leukocytes Auto (Bld) [Pure # fraction] 0.1 E9/L Normal 0.0-0.[address] [facility] Comment on above: Order Comment: Order Added by Discern Expert. Performed By: #### 2 267655, 08458971, 3656008, 8189269, 00234965, 6702773, 5906532 ####[address] [place] [address] Eosinophils/100 WBC (Bld) 0.1 % Normal 0.0-8.[address] [facility] Comment on above: Order Comment: Order Added by Discern Expert. Performed By: #### 2 321384, 32231299, 7486003, 9853289, 81180242, 9200262, 0796548 ####[address] [address] Eosinophils/Leukocyte s Auto (Bld) [Pure # fraction] 0.0 E9/L Normal 0.0-0.[address] [facility] Comment on above: Order Comment: Order Added by Chris Expert. Performed By: #### 2 847378, 18772436, 4624720, 2738280, 04037046, 9996799, 7963582 ####[address] [address] Lymphocytes/100 WBC (Bld) 4.1 % Low 14.0-50.[address] [facility] Comment on above: Order Comment: Order Added by Chris Expert. Performed By: #### 2 512809, 83125121, 6149977, 8392460, 40051684, 5741690, 9033988 ####[address] [place] [address] Lymphocytes/Leukocyte s Auto (Bld) [Pure # fraction] 0.5 E9/L Low 1.0-4.[address] [facility] Comment on above: Order Comment: Order Added by Chris Expert. Performed By: #### 2 625303, 15291423, 2459207, 9975892, 32141692, 3422116, 3274328 ####[address] [address] Monocytes/100 WBC (Bld) 6.1 % Normal 4.0-14.[address] [facility] Comment on above: Order Comment: Order Added by Discern Expert. Performed By: #### 2 632477, 04922015, 3317788, 6868061, 03089733, 1785048, 8173849 ####[facility] [address] [place] [address] Monocytes/Leukocytes Auto (Bld) [Pure # fraction] 0.8 E9/L Normal 0.2-1.[address] [facility] Comment on above: Order Comment: Order Added by Chris Expert. Performed By: #### 2 520803, 84309317, 4274436, 0619074, 51587155, 1040181, 0635540 ####[address] [place] [address] Neutrophils/100 WBC (Bld) 89.3 % High 36.0-75.[address] [facility] Comment on above: Order Comment: Order Added by Discern Expert. Performed By: #### 2 930030, 66589783, 9149762, 0546541, 07067159, 2980720, 1587755 ####[facility] [address] [place] [address] Neutrophils/Leukocyte s Auto (Bld) [Pure # fraction] 12.1 E9/L High 2.0-7.[address] [facility] Comment on above: Order Comment: Order Added by Discern Expert. Performed By: #### 2 852195, 68264253, 3558387, 4232022, 36249106, 0331369, 8230499 ####[facility] [address] [place] [address] BMPon 06-15-2021 Creatinine [Mass/Vol] 1.3 mg/dL Normal 0.5-1.3 [facility] Comment on above: Performed By: #### 2 006107, 49686386, 1788164, 5773086, 37743639, 0723231, 3742238 ####[facility] [address] [place] [address] Urea nitrogen [Mass/Vol] 18 mg/dL Normal 5-[address] [facility] Comment on above: Performed By: #### 2 710082, 16219314, 4888982, 5433314, 15557924, 0918483, 9678191 ####[facility] [address] [place] [address] Urea nitrogen/Creatinine [Mass ratio] 14 No Units Normal 10-[address] [facility] Comment on above: Performed By: #### 2 883559, 03239673, 4405537, 5202690, 16791932, 3184863, 7889954 ####[facility] [address] [place] [address] Anion gap [Moles/Vol] 12 mmol/L Normal 6-16 [facility] Comment on above: Performed By: #### 2 814477, 32798890, 1598441, 5305255, 09880713, 7265187, 9229450 ####[facility] [address] [place] [address] Calcium [Mass/Vol] 8.6 mg/dL Low 8.9-11.[address] [facility] Comment on above: Performed By: #### 2 510349, 61728077, 1115962, 2012213, 35118166, 5677603, 0616739 ####[facility] [address] [place] [address] Chloride [Moles/Vol] 102 mmol/L Normal 101-111 [facility] Comment on above: Performed By: #### 2 712865, 38031335, 7809878, 6833424, 02597567, 1755772, 6107353 ####[facility] [address] [place] [address] CO2 [Moles/Vol] 24 mmol/L Normal 21-31 [facility] Comment on above: Performed By: #### 2 824991, 33048686, 3818723, 0991965, 63686851, 0643489, 3629543 ####[facility] [address] [place] [address] Glucose [Mass/Vol] 145 mg/dL Normal 55-[address] [facility] Comment on above: Result Comment: If t his glucose result represents a fasting glucose, interpretation should refer to the following reference range: 55-99 mg/dL Performed By: #### 2 693564, 40892564, 7588618, 9481138, 89695322, 0743336, 4970303 ####[facility] [address] [place] [address] Potassium [Moles/Vol] 3.8 mmol/L Normal 3.5-5.3 [facility] Comment on above: Performed By: #### 2 203537, 83284294, 7578323, 6984338, 36399412, 0811593, 6899297 ####[facility] [address] [place] [address] Sodium [Moles/Vol] 134 mmol/L Low 135-[address] [facility] Comment on above: Performed By: #### 2 369417, 30482912, 8831028, 2945275, 11404183, 3948616, 6358137 ####[facility] [address] [place] [address] CBC w/ Auto Diffon Erythrocyte distribution width (RBC) [Ratio] 13.6 % Normal 10.9-14.[address] [facility] Comment on above: Performed By: #### 2 151304, 76277719, 6056272, 9428758, 77867353, 0018538, 3000529 ####[facility] [address] [place] [address] Hematocrit (Bld) [Volume fraction] 37.7 % Normal 37.7-49.[address] [facility] Comment on above: Performed By: #### 2 580266, 87314776, 6646546, 4605230, 12696824, 6851029, 3982827 ####[facility] [address] [place] [address] Hemoglobin (Bld) [Mass/Vol] 12.6 g/dL Low 13.5-17.[address] [facility] Comment on above: Performed By: #### 2 541460, 87168981, 7109555, 2655156, 35858691, 4622405, 5100300 ####[facility] [address] [place] [address] MCH (RBC) [Entitic mass] 29.0 pg Normal 27.0-34.[address] [facility] Comment on above: Performed By: #### 2 320812, 36770407, 3335336, 9038869, 21150567, 5079488, 7885666 ####[facility] [address] [place] [address] MCHC (RBC) [Mass/Vol] 33.5 g/dL Normal 31.4-36.0 [facility] Comment on above: Performed By: #### 2 085223, 31273823, 1170212, 4589352, 17422420, 5480121, 4272189 ####[address] [place] [address] MCV (RBC) [Entitic vol] 86.6 fL Normal 80.0-100.[address] [facility] Comment on above: Performed By: #### 2 437154, 08607026, 3188335, 3981531, 56074596, 3038161, 5276545 ####[facility] [address] [place] [address] Platelet mean volume (Bld) [Entitic vol] 9.5 fL Normal 6.4-10.[address] [facility] Comment on above: Performed By: #### 2 876363, 16564387, 4583584, 2727805, 81156900, 8013262, 9930095 ####[facility] [address] [place] [address] Platelets (Bld) [#/Vol] 189.0 E9/L Normal 150.0-500.[address] [facility] Comment on above: Performed By: #### 2 029532, 30516986, 6538319, 7205448, 83108920, 5669430, 5580862 ####[facility] [address] [place] [address] RBC (Bld) [#/Vol] 4.4 E12/L Normal 4.3-5.[address] [facility] Comment on above: Performed By: #### 2 427523, 82848317, 6797006, 9721463, 25819014, 4819389, 5363719 ####[facility] [address] [place] [address] WBC corrected for nucl RBC Auto (Bld) [#/Vol] 13.5 E9/L High 4.0-11.[address] [facility] Comment on above: Result Comment: Slid e reviewed by ts. Performed By: #### 2 739411, 17437892, 4484772, 5035542, 23976661, 7904880, 5815038 ####[facility] [address] [place] [address] CRPon 06-15-2021 CRP [Mass/Vol] 31.1 mg/dL High <=1.9 [facility] Comment on above: Performed By: #### 2 828222, 30492112, 5937507, 7926682, 74094622, 7415551, 0907001 ####[facility] [address] [place] [address] Consent for Treatmenton Consent for Treatment [id number] .00CD:[address] [facility] D-Dimeron 06-15-2021 Fibrin D-dimer FEU (PPP) [Mass/Vol] 2227 [id number] Abnormal 215-[address] [facility] Comment on above: Result Comment: Resu lts Called To [facility]/ED By DIEUDONNE And Read Back For Confirmation On 06/15/2021 [...] infections Liver cirrhosis Performed By: #### 2 967436, 72503977, 0691262, 9243770, 09306353, 2218188, 2517231 ####[address] [place] [address] ED Note-Physicianon 06-16-19 ED Note-Physician This 55-year-old white male presented to the emergency room with a complaint of pain in his left foot and ankle as well as lower leg. The patient states that the pain began 4 days ago. Patient suffered a severe fracture of the left ankle in March. It is my understanding that he initially was operated at [place], that that surgical intervention failed and he underwent subsequent operative intervention by Dr. Hart at [facility] sometime after that. The patient indicates that [...] if the patient could be transferred to [place] under the hospitalist. He indicates that the hospitalist is Dr. Kenyatta Goldstein. The community health director, fazal spoke with the house wrecker at [place] who spoke with the hospitalist who gave [...] diagnosis: #1 osteomyelitis left tibia/ankle I provided [id number] evaluation of this patient. I have seen and evaluated the patient and I agree with the physician assistants history, physical examination, diagnostic evaluation, treatment and disposition of this patient. Please note I performed the medical decision making entirely on this patient. I performed the transfer of this patient as well. Normal [facility] Comment on above: Result Comment: Elec tronically Signed By: Ryan Veronica DO.br\Date and Time Signed: 06/15/21 21:33 EST Sed Rate Automatedon 022 Sed Rate Automated 32 mm/hr High 0-[address] [facility] Comment on above: Performed By: #### 2 587290, 97612584, 6588690, 9018590, 32211733, 4369753, 5512774 ####[facility] [address] [place] [address] eGFRon 06-15-2021 GFR/1.73 sq M.predicted among blacks MDRD (S/P/Bld) [Vol rate/Area] mL/min/{1.73_m2} Normal >=[address] [facility] Comment on above: Order Comment: Order added by Discern Expert. Result Comment: eGFR is race adjusted. AA=. Performed By: #### 2 842476, 94674622, 9816231, 3578659, 25806546, 2463153, 9324169 ####[facility] [address] [place] [address] GFR/1.73 sq M.predicted among non-blacks MDRD (S/P/Bld) [Vol rate/Area] 57 mL/min/1.73 m2 Low >=[address] [facility] Comment on above: Order Comment: Order added by Discern Expert. Result Comment: Ham Clerk ijeoma kidney disease could be indicated at eGFR's of less than 60 mL/min/1.73m2. Kidney failure is indicated at less than 15 mL/min/1.73m2. Performed By: #### 2 119935, 09459665, 8762278, 1148637, 68091124, 3873260, 3866526 ####[facility] [address] [place] [address] Consenton 06-03-2021 Consent [id number] .00CD:[address] [facility] Registrationon 06-03-2021 Registration [id number] .[id number]:[address] [facility] Basic Metabolic Panlon 04-28 Anion gap molar conc 11 mmol/L Normal 9-18 [facility] Calcium mass conc 9.0 mg/dL Normal 8.6-10.0 [facility] spital Chloride molar conc 101 mmol/L Normal 97-105 [facility] CO2 molar conc 29 mmol/L Normal 22-30 [facility] Creatinine mass conc 1.05 mg/dL Normal 0.73-1.22 [facility] eGFR- Amer. >60 Normal [facility] ospital GFR/1.73 sq M predicted among non-blacks [...] Glucose mass conc 134 mg/dL High 74-99 [facility] emekatal Comment on above: Result Comment: The [place] [employer] Association (ADA) provides guidance for cutoff [...] Standards of Medical Care in Diabetes 2016, [place] [employer]. Diabetes Care. 2016.39(Suppl 1). Potassium molar conc 4.6 mmol/L Normal 3.7-5.1 [facility] Sodium molar conc 141 mmol/L Normal 136-144 [facility] Urea nitrogen mass conc 18 mg/dL Normal 9-24 [facility] Anion gap molar conc 9 mmol/L Normal 9-18 [facility] Calcium mass conc 9.1 mg/dL Normal 8.6-10.0 [facility] Chloride molar conc 102 mmol/L Normal 97-105 [facility] CO2 molar conc 28 mmol/L Normal 22-30 [facility] Creatinine mass conc 1.08 mg/dL Normal 0.73-1.22 [facility] eGFR- Amer. >60 Normal [facility] GFR/1.73 sq M predicted among non-blacks MDRD vol rate/area (S/P/Bld) mL/min/{1.73_m2} Normal [facility] Comment on above: Result Comment: eGFR [...] Glucose mass conc 148 mg/dL High 74-99 [facility] milla Comment on above: Result Comment: The [place] [employer] (ADA) provides guidance for cutoff [...] Standards of Medical Care in Diabetes 2016, [place] [employer]. Diabetes Care. 2016.39(Suppl 1). Potassium molar conc 5.5 mmol/L High 3.7-5.1 [facility] Sodium molar conc 139 mmol/L Normal 136-144 [facility] Urea nitrogen mass conc 19 mg/dL Normal 9-24 [facility] CBCon 04-28-2018 Absolute nRBC <0.01 Normal <0.01 [facility] Erythrocyte distribution width Ratio (RBC) 12.2 % Normal 11.5-15.0 [facility] Hematocrit Volume Fraction (Bld) 37.8 % Low 39.0-51.0 [facility] Hemoglobin mass conc (Bld) 12.7 g/dL Low 13.0-17.0 [facility] MCH Entitic mass (RBC) 29.7 pG Normal 26.0-34.0 [facility] MCHC mass conc (RBC) 33.6 g/dL Normal 30.5-36.0 [facility] MCV Entitic volume (RBC) 88.3 fL Normal 80.0-100.0 [facility] Platelet mean volume Entitic volume (Bld) 11.3 fL Normal 9.0-12.7 [facility] Platelets #/vol (Bld) 214 10*3/uL Normal 150-400 [facility] RBC #/vol (Bld) 4.28 10*6/uL Normal 4.20-6.00 [facility] sp[facility] WBC #/vol (Bld) 18.24 10*3/uL High 3.70-11.00 [facility] NURSING PROGon 04-28-2018 Protein mass conc HNO ID: [id number] Author: Scarlet (Rn) ABDULAZIZ Morton Service: (none) Author Type: Registered Nurse Type: Nursing Progress Note Filed: 04/28/2018 9:08 PM Note Text: Nursing Progress Note Patient Name: Sandra Boss Patient Location[place] [address] [address] Daily Note: OK to be discharged to home. IV removed. Discharge instructions given. Questions answered. Discharged home by w/c with family. This note was completed by: Scarlet Morton RN Normal [facility] Protein mass conc HNO ID: [id number] Author: Brittany DavisRn) ABDULAZIZ Cardoza Service: Nursing Author Type: Registered Nurse Type: Nursing Progress Note Filed: 04/28/2018 6:44 AM Note Text: Nursing Progress Note Patient Name: Sandra Boss Patient Location: [place] [address] [address] Daily Note: Ambulated to bathroom with assistance. patient unable to void, c/o lower abdomen feeling tight . bladder scan showed > 999 cc urine. Patient straight cathed for 1025 cc clear yellow urine. This note was completed by: Brittany Cardoza RN [facility] PLAN OF CAREon 04-28-2018 PLAN OF CARE HNO ID: [id number] Author: Manuel [place] ([employer]) Service: (none) Author Type: (none) Type: Plan of Care Filed: 04/28/2018 3:11 PM Note Text: PHARMACY BEDSIDE DELIVERY SERVICE Patient Name: Sandra Boss The marked outpatient medications were Filled at: [facility] and delivered to the patient's bedside to [...] mg tablet Commonly known as: LARISA [place] ([employer]) PAGER: [email or web address] April 28, 2018 3:10 PM [facility] PLAN OF CARE HNO ID: [id number] Author: Amparo Parra (Pharmacist) Service: Pharmacy Author [...] a call to the physician. Krishan Gonzalez (Operations Plant Attendant) April 28, 2018 1:41 PM Preceptor Addendum: The above case has been reviewed and discussed with the pharmacy operations manager. I agree with the assessment/plan described by [...] oxyCODONE IR 5 mg immediate release tablet [facility] PLAN OF CARE HNO ID: [id number] Author: Manuel [place] ([employer]) Service: (none) Author Type: (none) Type: Plan of Care Filed: 04/28/2018 1:03 PM Note Text: Pharmacy Discharge Medication Service: This patient has elected to receive their discharge prescriptions through the [facility] Bedside Prescription Delivery program. The prescriptions are currently being processed. A follow-up note will be entered once the prescriptions have been filled and delivered to the patient. Please contact me with any questions or updates to the patient's discharge medications. Manuel Angeles ([employer]) DCT Contact Info: [facility] PLAN OF CARE HNO ID: [id number] Author: Manuel Angeles ([employer]) Service: (none) Author Type: (none) Type: Plan of Care Filed: 04/28/2018 1:02 PM Note Text: FOOD MANAGER BEDSIDE DELIVERY SURVEY 1. Patient to use [facility] Bedside Delivery - YES 2. If fax, patient would like us to fax prescriptions to Pharmacy of choice a. Pharmacy: b. Location: c. Phone: 3. Insurance card on file - YES 4. Credit card for payment - N/A [facility] PROGRESSon 04-28-2018 Protein mass conc HNO ID: [id number] Author: Hank De Souza Service: Hospital Medicine Author Type: Physician Type: Progress Notes Filed: 04/28/2018 10:58 AM Note Text: SERVICE DATE: 04/28/2018 SERVICE TIME: 10:58 AM HOSPITAL MEDICINE PROGRESS NOTE NIGHT AND WEEKEND COVERAGE: Days: [phone], please page me for patient issues. Nights: [phone], please page [facility] Hospitalist Night coverage pager [phone] HPI Patient doing well. Is able to [...] of 04/28/2018 Noted - [facility]olved Hospital * (Principal)Osteoarthr itis of left hip 04/02/2018 - Present Hyperkalemia 04/28/2018 - Present Current Assessment AND Plan Assessment: Very mild PLAN: Hold multivitamin for now, no bananas today. Recheck of potassium shows it's within normal levels now. Patient would be okay for discharge home if ready from surgery standpoint Medication and Non-Pharmacologic VTE Prophylaxis/Anticoagu lants 04/27/181899 pneumatic compression stockings (mn,oh) 04/27/181899 graduated compression stockings (mn,oh) 04/27/181899 graduated compression stockings (mn,oh) 04/27/181899 activity - mobilize patient (mn,oh) 04/27/181899 activity - mobilize patient (mn,oh) 01/15/19 1900 activity - mobilize patient (mn,oh) 04/27/18 1315 pneumatic compression stockings (mn,oh) 04/27/18 1315 pneumatic compression stockings ([place] VTE Prophylaxis: VTE prophylaxis appropriate Plan of care discussed with: Patient and RN at bedside SIGNATURE: Hank De Souaz MD PATIENT NAME: Sandra Boss DATE: April 28, 2018 TIME: 10:58 AM PAGER/CONTACT #: [phone] [facility] Protein mass conc HNO ID: [id number] Author: Christel Joseph) Veronica Service: Orthopaedic Surgery Author Type: Physician [employer] Make Up Helper Type: Progress Notes Filed: 04/28/2018 7:03 AM [...] yet, but planning for discharge home with [facility] today if clear with PT. Objective VITAL [...] hyperkalemia Case Management for discharge planning-Home with [facility] today if clear with PT ACTIVE PROBLEM LIST Osteoarthritis of Right Hip Pain in Right Hip Greater Trochanteric Bursitis of Right Hip Primary Osteoarthritis of Right Hip Tear of Right Gluteus Minimus Tendon Osteoarthritis of Left Hip Current Smoker Medication and Non-Pharmacologic VTE Prophylaxis/Anticoagu lants 04/27/18 1900 pneumatic compression stockings (fl,oh) 04/27/18 [...] 28, 2018 TIME: 7:00 AM PAGER/CONTACT #: [phone] [facility] PT EDon 04-28-2018 PT ED HNO ID: [id number] Author: Amparo Parra (Pharmacist) Service: Pharmacy Author [...] topic Outcomes not met: N/A Krishan Gonzalez (Operations Plant Attendant) Preceptor Addendum: The above case has been reviewed and discussed with the pharmacy operations manager. I agree with the assessment/plan described by the student. Changes and additions to the details in the above note are indicated by italics and . Amparo Parra, Pharmacist Normal [facility] THERAPY NTon 04-28-2018 THERAPY NT HNO ID: [id number] Author: Judy (Ot/L) Sepulveda Service: Occupational Therapy Author Type: Occupational Therapist Type: Therapy (PT/OT/Speech/Resp) Filed: 04/28/2018 4:11 PM Note Text: Occupational Therapy Evaluation SERVICE DATE: 04/28/2018 SERVICE TIME: 1034 to 1059 ROOM: [place] [address] Recommended Discharge Disposition: Home Recommended Discharge Equipment: Long Handled Sponge;Sock Aide OT Recommendations to Nursing: To Bathroom for ADL?s /and or Toileting;OOB for meals;With assist of 1 person Equipment: Wheeled Walker OT 6 Clicks Score: 24 Precautions/Activity Restrictions: Total Hip Replacement;Weight Bearing Restrictions;Hip Precautions - Posterior Dislocation (s/p L SUKUMAR (Patrick)) Extremity With Weight Bearing Restricted: Left Lower [...] Decreased activities of daily living (ADL);Muscle Weakness (generalized);Reduced mobility-other;Genera l symptoms and signs-other Interventions Provided: Evaluation;Self Detention Management (61004) $ Evaluation-Low (14199) Billed Units: 1 unit Self Detention Management (88764) Treatment Minutes: 10 1 unit Skilled Intervention(s): [...] relating to: -functional transfers (use of leg sourcing specialist to assist surgical leg in/out of bed, [...] of tub or shower seat/bench w/ leg sourcing specialist, importance of grab bars and not bathing [...] pt. 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 SIGNATURE: Judy Sepulveda OT/Fei PATIENT NAME: Sandra Boss DATE: April 28, 2018 TIME: 4:09 PM Normal [facility] THERAPY NT HNO ID: [id number] Author: Kate Jordan (Pt) Venkat Service: Physical Therapy Author Type: Physical Therapist Type: Therapy (PT/OT/Speech/Resp) Filed: 04/28/2018 2:59 PM Note Text: Physical Therapy Treatment SERVICE DATE: 04/28/2018 SERVICE TIME: 1315 to 1340 ROOM: [place] [address] Recommended Discharge Disposition: Home PT Recommended Discharge Equipment: Wheeled Walker PT Recommendations to Nursing: Ambulate with device;To bathroom;In halls;OOB for Meals;With assist of 1 person Device: Wheeled Walker PT 6 Clicks Score: 24 Precautions/Activity Restrictions: Total Hip Replacement;Weight Bearing Restrictions;Hip Precautions - Posterior Dislocation (s/p L SUKUMAR (Patrick)) Extremity With Weight Bearing Restricted: Left Lower [...] per week): 7 Current admission Treatment Interventions: Education;Strengtheni ng;Functional Mobility Training Plan of Care developed with: Patient TREATMENT INTERVENTIONS: Therapy Diagnosis: Reduced mobility-other;Muscle Weakness (generalized);Abnorma lities of gait and mobility-other Interventions Provided: Gait Training (40776);Therapeutic Exercise (15560) Therapeutic Exercise (90168) Treatment Minutes: 8 1 unit Skilled Intervention(s): Instruction in therapeutic exercise Verbal and tactile cuing provided Seated LAQ and HS 2x10 B LE, Pt using sheet to A with full extension L knee during LAQ Gait Training (05649) Treatment Minutes: 15 1 unit Skilled Intervention(s): [...] With: Significant Other (fiancee) Assistance Available: time recorder Entry To Home: Stairs;With Rail Number Of [...] initial stance decreased;Push-off during terminal stance decreased JH-HLM: 7: Walk 25 feet or more Please see discipline specific clinical documentation flowsheet for complete details for this therapy evaluation/treatment. SIGNATURE: Kate Robledo, PT PATIENT NAME: Sandra Boss DATE: April 28, 2018 TIME: 2:54 PM [facility] THERAPY NT HNO ID: [id number] Author: Kate Jordan (Pt) Venkat Service: Physical Therapy Author Type: Physical Therapist Type: Therapy (PT/OT/Speech/Resp) Filed: 04/28/2018 12:37 PM Note Text: Physical Therapy Evaluation SERVICE DATE: 04/28/2018 SERVICE TIME: 734 ([phone] eval initiated) to 929 ([phone] EVAL, GAIT, THER EX) ROOM: [place] [address] Recommended Discharge Disposition: Home PT Recommended Discharge Equipment: Wheeled Walker PT Recommendations to Nursing: Ambulate with device;To bathroom;In halls;OOB for Meals;With assist of 1 person Device: Wheeled Walker PT 6 Clicks Score: 23 Precautions/Activity Restrictions: Total Hip Replacement;Weight Bearing Restrictions;Hip Precautions - Posterior Dislocation (s/p L SUKUMAR (Patrick)) Extremity With Weight Bearing Restricted: Left Lower [...] per week): 7 Current admission Treatment Interventions: Education;Strengtheni ng;Functional Mobility Training Plan of Care developed with: Patient TREATMENT INTERVENTIONS: Therapy Diagnosis: Reduced mobility-other;Muscle Weakness (generalized);Abnorma lities of gait and mobility-other Interventions Provided: Evaluation;Therapeuti c Exercise (41530);Therapeutic Activity (59312);Gait Training (60092) $ Evaluation-Low (03733) Billed Units: 1 unit Therapeutic Exercise (26978) Treatment Minutes: 10 1 unit Skilled Intervention(s): Instruction in therapeutic exercise Verbal and tactile cuing provided Pt performed in supine position: AP, QS, GS x 10 B LE, pt instructed to do every hour while awake on their own. HS, hip ABD, SAQ x 10 B LE. Pt instructed on using a sheet to A with L LE. Therapeutic Activity (14591) Treatment Minutes: 5 Skilled Intervention(s): Instructed patient in supine to sit pushing with upper extremities to sit up Gait Training (42211) Treatment Minutes: 10 1 unit Skilled Intervention(s): [...] CODE: PT 6 Clicks Score: 23 (04/28/18 0735) Based on clinical assessment and the score on the 6 Clicks Functional Assessment Tool, the G code and corresponding severity modifiers are documented above. SUBJECTIVE: Current Hospital Course: Chart reviewed; Pt with increased L hip pain and elected to have L SUKUMAR 04/27 (Patrick) Reason for Physical Therapy Consult : S/P L SUKUMAR Relevant Past Medical History: R SUKUMAR 2016, R glut repair 06/2017 Patient Report: Pt in bed This L hip and groin is so sore, I dont think my R one was this bad Home Environment Patient Lives With: Significant Other (fiancee) Assistance Available: time recorder Entry To Home: Stairs;With Rail Number Of [...] deg) Strength: WFL Except (L hip <3/5) -HLM: 7: Walk 25 feet or more Please see discipline specific clinical documentation flowsheet for complete details for this therapy evaluation/treatment. SIGNATURE: Kate Robledo, PT PATIENT NAME: Sandra Boss DATE: April 28, 2018 TIME: 12:34 PM [facility] ANES PREOPon 04-27-2018 ANES PREOP HNO ID: [id number] Author: Cassandra Slater Service: Anesthesiology Author Type: [...] (04/20/18) - Alcohol use No No current facility-administered medications on file prior to encounter. Current Outpatient Prescriptions on File Prior to Encounter: acetaminophen (TYLENOL) 500 mg tablet Take 2 tablets by mouth every 8 hours. (Mild pain reliever) MULTIVITAMIN WITH MINERALS (MULTIVITAMIN AND MINERAL FORMULA ORAL) Take 1 tablet by mouth once daily. Current Facility-Administered Medications: ceFAZolin iv piggyback 2 g in D5W (iso-osmotic) 100 mL (ANCEF) 2 g INTRAVENOUS Pre-Op Once Christel Martin (Pa) lactated ringers infusion 5-30 mL/hr INTRAVENOUS CONTINUOUS Christel (Bryan) Veronica Last Rate: 30 mL/hr at 04/27/18 1336 30 mL/hr at 04/27/18 1336 scopolamine 1 mg over 3 days 1 Patch (TRANSDERM-SCOP) 1 Patch TRANSDERMAL q 72 HR Christel (Pa) Henriqueyesni 1 Patch at 04/27/18 1326 And scopolamine - REMOVE PATCH OTHER q 72 HR Christel (Pa) Henriqueyesni And scopolamine - VERIFY patch OTHER q 8 H Christel (Pa) Viniciosni Allergies: ALLERGIES No Known Allergies DOS EXAM: [...] April 27, 2018 TIME: 1:45 PM CSN: [id number] Normal [facility] Basic Metabolic Panlon 04-27 Anion gap molar conc 10 mmol/L Normal 9-18 [facility] Calcium mass conc 9.2 mg/dL Normal 8.6-10.0 [facility]ital Chloride molar conc 101 mmol/L Normal 97-105 [facility] CO2 molar conc 27 mmol/L Normal 22-30 [facility] Creatinine mass conc 0.96 mg/dL Normal 0.73-1.22 [facility] eGFR- Amer. >60 Normal [facility] ospital GFR/1.73 sq M predicted among non-blacks MDRD vol rate/area (S/P/Bld) mL/min/{1.73_m2} Normal [facility] Comment on above: Result Comment: eGFR (Estimated [...] Glucose mass conc 126 mg/dL High 74-99 [facility] milla Comment on above: Result Comment: The [place] Diabetes Association (ADA) provides guidance for cutoff [...] Standards of Medical Care in Diabetes 2016, [place] [employer]. Diabetes Care. 2016.39(Suppl 1). Potassium molar conc 5.2 mmol/L High 3.7-5.1 [facility] Sodium molar conc 138 mmol/L Normal 136-144 [facility] milla Urea nitrogen mass conc 12 mg/dL Normal 9-24 [facility] CBCon 04-27-2018 Absolute nRBC <0.01 Normal <0.01 [facility] Erythrocyte distribution width Ratio (RBC) 12.2 % Normal 11.5-15.0 [facility] Hematocrit Volume Fraction (Bld) 38.8 % Low 39.0-51.0 [facility] Hemoglobin mass conc (Bld) 13.5 g/dL Normal 13.0-17.0 [facility] MCH Entitic mass (RBC) 30.3 pG Normal 26.0-34.0 [facility] MCHC mass conc (RBC) 34.8 g/dL Normal 30.5-36.0 [facility] MCV Entitic volume (RBC) 87.2 fL Normal 80.0-100.0 [facility] Platelet mean volume Entitic volume (Bld) 10.7 fL Normal 9.0-12.7 [facility] Platelets #/vol (Bld) 192 10*3/uL Normal 150-[facility] RBC #/vol (Bld) 4.45 10*6/uL Normal 4.20-6.00 [facility] WBC #/vol (Bld) 13.46 10*3/uL High 3.70-11.00 [facility] HISTORY PHYSICALon 9 HISTORY PHYSICAL HNO ID: [id number] Author: Christel Martin (Pa) Service: Orthopaedic Surgery Author Type: Physician [employer] Make Up Helper Type: HANDP Filed: 04/27/2018 1:20 PM Note [...] 27, 2018 TIME: 1:20 PM PAGER: Normal [facility] NURSING PROGon 04-27-2018 Protein mass conc HNO ID: [id number] Author: Mervat Enamorado (Rn) ABDULAZIZ Morton Service: (none) Author Type: Registered Nurse Type: Nursing Progress Note Filed: 04/27/2018 8:58 PM Note Text: Nursing Progress Note Patient Name: Sandra Boss Patient Location: --513/- Daily Note:To room 413 from PACU. Pt [...] note was completed by: Mervat Morton RN [facility] OPERATIVE NOon 04-27-2018 OPERATIVE NO HNO ID: [id number] Author: Suman Nguyen Jr. Service: Orthopaedic Surgery Author Type: Physician Type: Operative Report Filed: 04/27/2018 5:42 PM Note Text: [facility] OPERATIVE REPORT PATIENT NAME: Sandra Boss AGE: [age] year old LOG ID: [id number] Surgery Date: 04/27/2018 SURGEON: Suman Nguyen M.D. CONCRETE FLOOR INSTALLER: Christel Sprague PA-C, her assistance consisted of [...] then performed. The hip was dislocated. The music box mechanic osteotome was utilized to lateralize the starting [...] DATE: April 27, 2018 TIME: 5:39 PM Normal [facility] PT EDon 04-27-2018 PT ED HNO ID: [id number] Author: aSmantha (Rn) Niki, RN Service: Nursing Author Type: Registered Nurse [...] AFFECTING LEARNING: None Electronically Signed By: Samantha Prince, RN In Department: [facility] SURGERY Normal [facility] SURGICAL PATHOLOGYon 019 SURGICAL PATHOLOGY Specimen originated from [facility] Specimen #: [id number] Submitting Physician: SUMAN NGUYEN MD FINAL DIAGNOSIS Femoral head, left, arthroplasty - Degenerative joint disease. J/HANNA/val 05/02/18 Junaid Nieto M.D. (Electronic Signature) ____ SPECIMEN SUBMITTED A: LEFT FEMORAL HEAD CLINICAL [...] seen. Minimally attached soft tissue is seen. Seafood Process Worker sections are submitted in the following cassettes: A1 soft tissue; A2 bone following decalcification. TN/dcr 04/28/2018 Gross examination performed at [facility], [address] [place] [address] Date of Report: 05/03/2018 Date of Procedure: 04/27/2018 Date of Receipt: 04/27/2018 Submitted by: SUMAN NGUYEN MD Location: [facility] Diagnostic interpretation performed at [facility], [address] [place] [address]. [facility] Comment on above: Performed By: #### S [...] IMPRESSION: Left total hip prosthesis in place. Pulp And Paper Tester: LATOSHA Transcribe Date/Time: Apr 27 2018 6:16P Dictated by : MANISH POLLARD MD This examination was interpreted and the report reviewed and electronically signed by: MANISH POLLARD MD on Apr 27 2018 6:17PM EST [id number] [facility] NURSING PROGon 04-23-2018 Protein mass conc HNO ID: [id number] Author: Amparo (Rn) Magnus, ABDULAZIZ Service: (none) Author Type: Registered Nurse Type: Nursing Progress Note Filed: 04/23/2018 10:45 AM Note Text: PACC Nurse Progress Note History AND Physical: PACC Visit Date: 04/20 Original HANDP Date: N/A ED visit Date: N/A Outside HANDP Scanned Date: N/A Labs Within Last 6 Months: CBC: Date 04/20 BMP/CMP: Date 04/20 PT: Date 04/20 UA: 04/20 Urine C+S: 04/20 STAAMP: Date 04/02 TYPE AND SCREEN: 04/20 OTHER TEST: ferritin, iron and tibc, 04/21 within acceptable limits Imaging Within Last [...] Agudelo RN April 23, 2018 10:37 AM [facility] HISTORY PHYSICALon HISTORY PHYSICAL HNO ID: [id number] Author: Kate Reyna Service: (none) Author Type: Physician Cd Storage [employer] Materials Make Up Helper Type: HANDP Filed: 04/20/2018 9:07 AM Note [...] fevers. Neuro: No history of TIA's, stroke, QUALITY TECHNICIAN FIBERGLASS tumor, impaired sensorium, hemiplegia, paraplegia or quadraplegia. No neurological symptoms or problems. Respiratory: +Current smoker Negative for Asthma, Current cough, Dyspnea, URI < 2 weeks Cardiovascular: No history of HTN requiring medication, no history of angina, CHF, NH, cardiac surgery or stents. Denies rest pain, gangrene or revascularization/amp utation for PVD. No history of cardiovascular symptoms [...] PENDING labs EKG 04/20/18, (pending review from assembly worker/physicia n) NSR, normal ECG All in Epic Assessment [...] 20, 2018 TIME: 8:50 AM PAGER/CONTACT #: [facility] Type and SCR (30D)on 019 ABO/RH(D) Positive [facility] HOSPon 04-02-2018 HOSP Patient:Sandra Boss MRN: Height:6' [...] 45.1 % 04/20/2018 51.0 39.0 Progress Notes ([facility]): RT Jeovany 04/02/2018 9:49 AM Signed Radiology [...] 04/02/2018 01:25 PM Modules accepted: Orders Normal [facility] Basic Metabolic Panlon 07-02 Anion gap molar conc 10 mmol/L Normal 9-18 [facility] Calcium mass conc 8.7 mg/dL Normal 8.6-10.0 [facility]ital Chloride molar conc 103 mmol/L Normal 97-105 [facility] CO2 molar conc 25 mmol/L Normal 22-30 [facility] Creatinine mass conc 0.95 mg/dL Normal 0.73-1.22 [facility] eGFR- Amer. >60 Normal [facility] ospital GFR/1.73 sq M predicted among non-blacks MDRD vol rate/area (S/P/Bld) mL/min/{1.73_m2} [facility] Comment on above: Result Comment: eGFR [...] Glucose mass conc 127 mg/dL High 74-99 [facility] Comment on above: Result Comment: The [place] Diabetes Association (ADA) provides guidance for cutoff [...] Standards of Medical Care in Diabetes 2016, [place] [employer]. Diabetes Care. 2016.39(Suppl 1). Potassium molar conc 4.6 mmol/L Normal 3.7-5.1 [facility] Sodium molar conc 138 mmol/L Normal 136-144 [facility]a Urea nitrogen mass conc 14 mg/dL Normal 9-24 [facility] CONSULT PROGon 07-02-2017 Protein mass conc HNO ID: [id number] Author: Kacy Canela Service: Hospital Medicine Author Type: Physician Type: Consult Progress Note Filed: 07/02/2017 10:07 AM Note Text: Hospital Medicine Noted plans by primary service for discharge. BMP unremarkable. VSS Outpatient multivitamin continued on discharge med rec. Stable for discharge home from medical perspective. Will sign off. Please call with questions. Kacy Canela D.O. Staff, Department of Hospital Medicine Pager [phone] Normal [facility] PLAN OF CAREon 07-02-2017 PLAN OF CARE HNO ID: [id number] Author: Jane DavisZPower) Service: (none) Author Type: Spare Hand Carding Type: Plan of Care Filed: 07/02/2017 4:17 PM Note Text: PHARMACY BEDSIDE DELIVERY SERVICE Patient Name: Sandra Boss The marked outpatient medications were Filled at: [facility] and delivered to the patient's bedside to [...] tablet Commonly known as: ULTRAM Jane Mccord (ZPower) PAGER: lucretia July 02, 2017 4:17 PM [facility] PLAN OF CARE HNO ID: [id number] Author: Jane DavisZPower) Service: (none) Author Type: Spare Hand Carding Type: Plan of Care Filed: 07/02/2017 9:26 AM Note Text: Pharmacy Discharge Medication Service: This patient has elected to receive their discharge prescriptions through the [facility] Bedside Prescription Delivery program. The prescriptions are currently being processed. A follow-up note will be entered once the prescriptions have been filled and delivered to the patient. Please contact me with any questions or updates to the patient's discharge medications. 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 Patient to use [facility] Bedside Delivery - YES 2. If fax, patient would like us to fax prescriptions to Pharmacy of choice a. Pharmacy: b. Location: c. Phone: 3. Insurance card on file - YES 4. Credit card for payment - NO [facility] PLAN OF CARE HNO ID: [id number] Author: Brittany DavisRn) ABDULAZIZ Albert Service: Care [...] Gluteus Minimus Tendon Attendees Present at Rounds: Spice Miller: y Pharmacy: y Physical Therapy: y Staff Nurse: y Needs Discussed on Rounds: Plan of Care Anticipated Discharge Disposition: Home/Self Care Last Vitals: BP 116/67 Pulse 54 Temp (Src) 97.9 (Oral) Resp 16 Ht 6' 0 (1.83m) Wt 159 lb 2.8 oz (72.2kg) SpO2 96% BMI 21.58 kg/(m2). Waiting for brace Nursing: Anxiety Intervention(s) Plan: Answer Questions and Provide Information on Coping Skills Anxiety Goals/Outcomes: Patient Verbalizes/Demonstrat es Decreased Anxiety Anxiety Goal Target Achievement Date: [...] July 02, 2017 TIME: 8:44 AM CSN: [id number] [facility] PROGRESSon 07-02-2017 Protein mass conc HNO ID: [id number] Author: Christel Sprague (Pa) Service: Orthopaedic Surgery Author Type: Physician Cd Storage And Materials Make Up Helper Type: Progress Notes Filed: 07/02/2017 7:48 AM [...] and Aquacell intact. Calf soft and nontender; ilana's negative. Good quad and glute set. Problem [...] 02, 2017 TIME: 7:45 AM PAGER/CONTACT #: [phone] [facility] THERAPY NTon 07-02-2017 THERAPY NT HNO ID: [id number] Author: Kate Jordan (Pt) Venkat Service: Physical Therapy Author Type: Physical Therapist Type: Therapy (PT/OT/Speech/Resp) Filed: 07/02/2017 3:45 PM Note Text: Physical Therapy Evaluation SERVICE DATE: 07/02/2017 SERVICE TIME: 1435 to 1458 ROOM: [place] [address] Recommended Discharge Disposition: Home Recommended Discharge Disposition [...] Diagnosis: Reduced mobility-other Interventions Provided: Evaluation;Gait Training (45555) $ Evaluation-Low (50020) Billed Units: 1 unit Gait Training (16649) Treatment Minutes: 8 1 unit Skilled Intervention(s): [...] G CODE: PT 6 Clicks Score: 24 (07/02/171434) Mobility: Walking and Moving Around Current Status (G8978): (07/02/171434) Mobility: Walking and Moving Around Goal Status (G8979): (07/02/171434) Mobility: Walking and Moving Around Discharge Status (G8980): (07/02/171434) Based on clinical assessment and the score [...] the iliotibial band S/P sugical repair 07/01 (Patrick) R SUKUMAR 03/2017. PAST MEDICAL HISTORY Diagnosis Date - OA (osteoarthritis) of hip 2016 Patient Report: Pt in bed, pleasant, agreeable to therapy. Home Environment Patient Lives With: Significant Other Assistance Available: time recorder Entry To Home: Stairs;With Rail Number Of [...] flowsheet for complete details for this therapy evaluation/treatment. SIGNATURE: Kate Robledo PT PATIENT NAME: Sandra Boss DATE: July 02, 2017 TIME: 3:41 PM PAGER/CONTACT #: [phone] [facility] ANES Luan 07-01-2017 ANES POST HNO ID: [id number] Author: Cassandra Slater Service: Anesthesiology Author Type: Physician Type: Anesthesia PostOp Filed: 07/01/2017 6:42 PM Note Text: POST ANESTHESIA EVALUATION NOTE SERVICE DATE: 07/01/2017 SERVICE TIME: 184 : 1965 Vitals: 07/01/17 1337 07/01/17 182 Temp: 36.6 ?C (97.9 ?F) 36.2 ?C (97.2 ?F) 07/01/17 1337 07/01/17 18207/01/17 183 BP: 144/91 116/82 125/89 07/01/17 1337 07/01/17 1825 07/01/17 183 Pulse: 78 73 61 07/01/17 1337 [...] 01, 2017 TIME: 6:41 PM PAGER/CONTACT #: [phone] [facility] ANES PREOPon 07-01-2017 ANES PREOP HNO ID: [id number] Author: Cassandra Slater Service: Anesthesiology Author Type: Physician Type: Anesthesia PreOp Filed: 07/01/2017 3:51 PM Note Text: ANESTHESIOLOGY DAY OF SURGERY NOTE SERVICE DATE: 07/01/2017 SERVICE TIME: 1430 : 1965 Procedure(s) (LRB): SUTURE ABDUCTOR TENDON [...] Used - Alcohol use No No current facility-administered medications on file prior to encounter. Current Outpatient Prescriptions on File Prior to Encounter: traMADol (ULTRAM) 50 mg tablet Take 1-2 tablets by mouth every 6 hours as needed for Pain for up to 7 days. Current Facility-Administered Medications: 0.9% NaCl 2-10 mL 2-10 mL INTRAVENOUS q 12 H Christel Sprague (Pa) 10 mL at 07/01/17 1413 ceFAZolin iv piggyback 2 g in D5W (iso-osmotic) 100 mL (ANCEF) 2 g INTRAVENOUS Pre-Op Once Christel Sprague (Pa) scopolamine 1 mg over 3 days 1 Patch (TRANSDERM-SCOP) 1 Patch TRANSDERMAL q 72 HR Christel Sprague (Pa) 1 Patch at 07/01/17 1413 And [START ON 07/04/2017] scopolamine - REMOVE PATCH OTHER q 72 HR Christel Sprague (Pa) And scopolamine - VERIFY patch OTHER q 8 H Christel Sprague (Pa) Allergies: ALLERGIES No Known Allergies DOS EXAM: [...] July 01, 2017 TIME: 3:51 PM CSN: [id number] [facility] CONSULTon 07-01-2017 CONSULT HNO ID: [id number] Author: Adalgisa Lovett Service: Hospital Medicine Author [...] DATE: July 01, 2017 TIME: 9:53 PM [facility] HISTORY PHYSICALon 8 HISTORY PHYSICAL HNO ID: [id number] Author: Christel Sprague (Pa) Service: Orthopaedic Surgery Author Type: Physician Cd Storage And Materials Make Up Helper Type: HANDP Filed: 07/01/2017 1:38 PM Note [...] July 01, 2017 TIME: 1:38 PM PAGER: [facility] NURSING PROGon 07-01-2017 Protein mass conc HNO ID: [id number] Author: Brooke Hutchinson) ABDULAZIZ Zuniga Service: Nursing Author Type: Registered Nurse Type: Nursing Progress Note Filed: 07/01/2017 8:28 PM Note Text: Nursing Progress Note Patient Name: Sandra Boss Patient Location: [place] [address] Daily Note: Pt to rm 506 via bed from PACU. Pt awake AND alert. Resps even AND unlabored. Dressing to right hip dry AND intact. Denzel wrap to right leg. Abduction pillow in place. Good pedal pulses. Pt states still with some numbness AND tingling to lower right leg. Feels burning to right thigh area. This note was completed by: Brooke Zuniga RN [facility] OPERATIVE NOon 07-01-2017 OPERATIVE NO HNO ID: [id number] Author: Suman Nguyen Jr. Service: Orthopaedic Surgery Author Type: Physician Type: Operative Report Filed: 07/06/2017 1:59 PM Note Text: [facility] - Operative Report SANDRA BOSS : 1965 AGE: 51 SEX: M CSN: [id number] [facility]: [facility] LOCATION: [address] ATTENDING PHYSICIAN: Suman Nguyen M.D. DATE OF [...] the abductor muscles. SURGEON: Suman Nguyen M.D. CONCRETE FLOOR INSTALLER: Christel Sprague PA-C. Her assistance consisted of [...] to the bone, but it was repaired [id number] with the remnant of the intact portion of the gluteus medius. 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 He will be weightbearing as tolerated with that. He will receive appropriate pain medications and 24 hours of appropriate antibiotic coverage. Suman Nguyen M.D. Orthopaedic Surgery MORENA:[id number] [facility] PT EDon 07-01-2017 PT ED HNO ID: [id number] Author: Kimber DavisRn) ABDULAZIZ Gold Service: (none) Author Type: Registered Nurse Type: Patient Education Filed: 07/01/2017 6:41 PM Note Text: Pt tolerating fluids. Talking with family at bedside. Will continue to monitor patient. [facility] PT ED HNO ID: [id number] Author: Veronica DavisRn) ABDULAZIZ Lang Service: Nursing [...] Signed By: Veronica Lang RN In Department: [facility] SURGERY [facility] NURSING PROGon 06-30-2017 Protein mass conc HNO ID: [id number] Author: Winnie DavisRn) ABDULAZIZ Kraft Service: Neurosurgery [...] Kraft RN June 30, 2017 2:07 PM [facility] HOSPon 06-29-2017 HOSP Patient:Sandra Boss MRN: Height:6' 0 (1.829 m) Weight:156 lb (70.761 kg) Outpatient Medications as of 3/21/18: MULTIVITAMIN WITH MINERALS (MULTIVITAMIN AND MINERAL FORMULA [...] for the following basenames: K,HCT Progress Notes ([facility]): Kenzie Enamorado [facility] 06/29/2017 10:41 AM Signed Called patient with date, time and location for pre admission testing scheduled on 06/2017 at the [facility]. Left message for patient to return my call to confirm receipt of message. Progress Notes ([facility]): Suman Nguyen Jr, MD 06/26/2017 5:19 PM Signed Ortho Hip Follow Up Note Narrative [place]: [place] [id number] [facility] [address] PCP: Rio Alanis MD === IMPRESSION/PLAN: Impressions indicate: === 51 year old male s/p Right Total [...] MD Completed by: MD Kenzie Browning Jr Med Sec 06/29/2017 8:03 AM Signed Addended by: KENZIE MAHMOOD on: 06/29/2017 08:03 AM Modules accepted: Orders Normal [facility] Vital Signs Date Time Vital Sign Value Performing Clinician Facility 06-20-2024 09:21-0400 Body height 182.88 cm Clare Brandt DO Work Phone: [facility] 06-20-2024 09:21-0400 Body mass index (BMI) [Ratio] 23.3 kg/m2 Clare Brandt DO Work Phone: [facility] 06-20-2024 09:21-0400 Body temperature 98.2 [degF] Clare Brandt DO Work Phone: [facility] 06-20-2024 09:21-0400 Body weight 78.01 kg Clare Brandt DO Work Phone: [facility] 06-20-2024 09:21-0400 Diastolic blood pressure 80 mm[Hg] Clare Ramirezley DO Work Phone: [facility] 06-20-2024 09:21-0400 Heart rate 78 /min Clare Brandt DO Work Phone: [facility] 06-20-2024 09:21-0400 SaO2% (BldA) [Mass fraction] 97 % Clare Brandt DO Work Phone: [facility] 06-20-2024 09:21-0400 Systolic blood pressure 110 mm[Hg] Clare Brandt DO Work Phone: [facility] 05-02-2024 11:43-0500 Diastolic blood pressure 80 mm[Hg] [facility] 05-02-2024 11:43-0500 Heart rate 102 /min [facility] 05-02-2024 11:43-0500 Heart rate 92 /min Clare Brandt DO Work Phone: [facility] 05-02-2024 11:43-0500 SaO2% (BldA) [Mass fraction] 96 % [facility] 05-02-2024 11:43-0500 Systolic blood pressure 112 mm[Hg] [facility] 05-02-2024 11:26-0500 Body height 182.88 cm [facility] 05-02-2024 11:26-0500 Body mass index (BMI) [Ratio] 22.1 kg/m2 [facility] 05-02-2024 11:26-0500 Body weight 73.93 kg [facility] 04-21-2024 10:38-0500 SaO2% (BldA) [Mass fraction] 98 % Heriberto Carrera MD Work Phone: [facility] 04-21-2024 10:35-0500 Body height 182.9 cm Heriberto Carrera MD Work Phone: [facility] 12-31-2022 09:32-0400 SaO2% (BldA) [Mass fraction] 98 % Heriberto Carrera MD Work Phone: [facility] 12-31-2022 09:30-0400 Body height 182.9 cm Heriberto Carrera MD Work Phone: [facility] 12-31-2022 09:30-0400 Body weight 72.12 kg Heriberto Carrera MD Work Phone: [facility] 12-31-2022 09:30-0400 Diastolic blood pressure 61 mm[Hg] Heriberto Carrera MD Work Phone: [facility] 12-31-2022 09:30-0400 Heart rate 61 /min Heriberto Carrera MD Work Phone: [facility] 12-31-2022 09:30-0400 Systolic blood pressure 101 mm[Hg] Heriberto Carrera MD Work Phone: [facility] 07-16-2022 13:43-0400 SaO2% (BldA) [Mass fraction] 95 % Heriberto Carrera MD Work Phone: [facility] 07-16-2022 13:41-0400 Diastolic blood pressure 91 mm[Hg] Heriberto Carrera MD Work Phone: [facility] 07-16-2022 13:41-0400 Systolic blood pressure 120 mm[Hg] Heriberto Carrera MD Work Phone: [facility] 07-16-2022 13:38-0400 Heart rate 65 /min Heriberto Carrera MD Work Phone: [facility] 04-21-2022 14:30-0500 Body height 179.07 cm Andi Eason Other [employer] Other 04-21-2022 14:30-0500 Body temperature 97.1 [degF] Andi Eason Other [employer] Other 04-21-2022 14:30-0500 Diastolic blood pressure 82 mm[Hg] Andi Eason Other [employer] Other 04-21-2022 14:30-0500 Systolic blood pressure 129 mm[Hg] Andi Eason Other [employer] Other 12-23-2021 14:15-0400 Body height 179.07 cm Andi Eason Other [employer] Other 12-23-2021 14:15-0400 Body mass index (BMI) [Ratio] 23.34 kg/m2 Andi Eason Other [employer] Other 12-23-2021 14:15-0400 Body temperature 98.3 [degF] Andi Eason Other [employer] Other 12-23-2021 14:15-0400 Body weight 74.84 kg Andi Eason Other [employer] Other 12-23-2021 14:15-0400 Diastolic blood pressure 81 mm[Hg] Andi Eason Other [employer] Other 12-23-2021 14:15-0400 Systolic blood pressure 120 mm[Hg] Andi Eason Other [employer] Other 12-05-2021 14:01-0400 Diastolic blood pressure 85 mm[Hg] [facility] Anna Wanda Work Phone: [facility] 12-05-2021 14:01-0400 Heart rate 64 /min [facility] Anna Wanda Work Phone: [facility] 12-05-2021 14:01-0400 Respiratory rate 16 /min [facility] Anna Wanda Work Phone: [facility] 12-05-2021 14:01-0400 SaO2% (BldA) [Mass fraction] 99 % [facility] Anna Wanda Work Phone: [facility] 12-05-2021 14:01-0400 Systolic blood pressure 125 mm[Hg] [facility] Anna Wanda Work Phone: [facility] 12-05-2021 13:59-0400 Body height 182.88 cm [employer] Anna Wanda Work Phone: [facility] 12-05-2021 13:59-0400 Body weight 74.84 kg [employer] Anna Wanda Work Phone: [facility] 10-24-2021 15:00-0400 Body height 179.07 cm Andi Eason Other [employer] Other 10-24-2021 15:00-0400 Body mass index (BMI) [Ratio] 22.63 kg/m2 Andi Eason Other [employer] Other 10-24-2021 15:00-0400 Body temperature 98.1 [degF] Andi Eason Other [employer] Other 10-24-2021 15:00-0400 Body weight 72.58 kg Andi Yumi Other [employer] Other 10-24-2021 15:00-0400 Diastolic blood pressure 93 mm[Hg] Andi Eason Other [employer] Other 10-24-2021 15:00-0400 Systolic blood pressure 129 mm[Hg] Andi Eason Other [employer] [facility] [employer] Other 09-19-2021 08:39-0400 Diastolic blood pressure 60 mm[Hg] [employer] Anna Wanda Work Phone: [facility] 09-19-2021 08:39-0400 Heart rate 65 /min [employer] Anna Wanda Work Phone: [facility] 09-19-2021 08:39-0400 Respiratory rate 18 /min [employer] Anna Wanda Work Phone: [facility] 09-19-2021 08:39-0400 SaO2% (BldA) [Mass fraction] 98 % [facility] Anna Wanda Work Phone: [facility] 09-19-2021 08:39-0400 Systolic blood pressure 99 mm[Hg] [facility] Anna Wanda Work Phone: [facility] 09-19-2021 06:49-0400 Body height 177.8 cm [facility] Anna Wanda Work Phone: [facility] 09-19-2021 06:49-0400 Body weight 77.11 kg [employer] Anna Wanda Work Phone: [facility] 08-14-2021 15:15-0400 Body height 179.07 cm Andi Eason Other [employer] Other 08-14-2021 15:15-0400 Body mass index (BMI) [Ratio] 22.63 kg/m2 Andi Eason Other [employer] Other 08-14-2021 15:15-0400 Body temperature 98.8 [degF] Andi Eason Other [employer] Other 08-14-2021 15:15-0400 Body weight 72.58 kg Andi Eason Other [employer] Other 08-14-2021 15:15-0400 Diastolic blood pressure 84 mm[Hg] Andi Eason Other [employer] Other 08-14-2021 15:15-0400 Systolic blood pressure 127 mm[Hg] Andi Eason Other [employer] Other 07-29-2021 14:30-0400 Body height 179.07 cm Andi Eason Other [employer] Other 07-29-2021 14:30-0400 Body mass index (BMI) [Ratio] 22.63 kg/m2 Andi Eason Other [employer] Other 07-29-2021 14:30-0400 Body temperature 98.2 [degF] Andi Eason Other [employer] Other 07-29-2021 14:30-0400 Body weight 72.58 kg Andi Eason Other [employer] Other 07-29-2021 14:30-0400 Diastolic blood pressure 87 mm[Hg] Andi Yumi Other [employer] Other 07-29-2021 14:30-0400 Systolic blood pressure 140 mm[Hg] Andi Yumi Other [facility] [employer] Other Encounters Encounter Date Encounter Type Care Provider Facility Start: 07-20-2024 End: 07-20-2024 ambulatory Shirley Peter APRN.CHEMICAL LABORATORY ASSISTANT Work Phone: [facility] Comment on above: Parkinson's disease without dyskinesia, with fluctuating manifestations (HCC) (Primary Dx); RLS (restless legs syndrome); Insomnia, unspecified type Start: 07-20-2024 End: 07-20-2024 Telemedicine consultation with patient Shirley Peter APRN.CHEMICAL LABORATORY ASSISTANT Work Phone: [facility] Start: 07-18-2024 End: 07-18-2024 Telephone encounter Heriberto Carrera MD Work Phone: [facility] Comment on above: Release of Informati on Start: 07-14-2024 End: 07-14-2024 Refill Cliar Monique PA-C Work Phone: [facility] Comment on above: Refill Request Start: 07-12-2024 End: 07-12-2024 Refill Clair Monique PA-C Work Phone: [facility] Comment on above: Refill Request Start: 06-20-2024 End: 06-20-2024 ambulatory Clare Brandt DO Work Phone: [facility] Work Phone: Start: 06-20-2024 End: 06-20-2024 Patient encounter procedure Clare Brandt DO Work Phone: [facility] Work Phone: Start: 05-08-2024 End: 05-09-2024 Refill Clair Monique PA-C Work Phone: [facility] Comment on above: Refill Request Start: 05-06-2024 End: 05-06-2024 Patient encounter procedure Clare Brandt DO Work Phone: [facility] Start: 05-02-2024 End: 05-02-2024 ambulatory [facility] Work Phone: Start: 05-02-2024 End: 05-02-2024 Patient encounter procedure [facility] Work Phone: Start: 04-22-2024 End: 05-02-2024 ambulatory Heriberto Carrera MD Work Phone: [facility] Comment on above: Lab work Start: 04-22-2024 End: 05-02-2024 E-mail encounter from caregiver Heriberto Carrera MD Work Phone: [facility] Start: 04-21-2024 End: 04-21-2024 ambulatory [facility] [place] Start: 04-21-2024 End: 04-21-2024 Office outpatient visit 25 minutes Heriberto Carrera MD Work Phone: [facility] Comment on above: Parkinson's disease without dyskinesia, with fluctuating manifestations (HCC) (Primary Dx); Neuropathy; RLS (restless legs syndrome); Restless leg syndrome, nonfamilial, uncontrolled Start: 03-09-2024 End: 03-09-2024 Refill Clair Amaya BRYAN-C Work Phone: [facility] Comment on above: Refill Request Start: 02-25-2024 End: 02-25-2024 Refill Heriberto Carrera MD Work Phone: [facility] Comment on above: Refill Request Start: 02-03-2024 End: 02-03-2024 ambulatory Clair Amaya PA-C Work Phone: [facility] Comment on above: Parkinson's disease without dyskinesia, with fluctuating manifestations (HCC) (Primary Dx) Start: 02-03-2024 End: 02-03-2024 Telemedicine consultation with patient Clair Amaya PA-C Work Phone: [facility] Start: 02-01-2024 End: 02-02-2024 Refill Heriberto Carrera MD Work Phone: [facility] Comment on above: Refill Request Start: 01-29-2024 End: 01-29-2024 Refill Heriberto Carrera MD Work Phone: [facility] Comment on above: Refill Request Start: 11-01-2023 Refill Asa zimmerman MD Work Phone: [facility] Comment on above: Refill Request Start: 09-27-2023 Refill Heriberto Carrera MD Work Phone: [facility] Comment on above: Refill Request Start: 07-23-2023 End: 07-23-2023 ambulatory Vickie Garibay [facility] Facility:[facility] Start: 07-23-2023 End: 07-23-2023 ambulatory DPM Vickie [facility] Work Phone: [facility] Work Phone: Start: 07-23-2023 End: 07-23-2023 Departed Referred DPM Vickie [facility] Work Phone: [facility] Start: 07-15-2023 Refill Heriberto Carrera MD Work Phone: [facility] Comment on above: Refill Request Start: 04-17-2023 End: 04-17-2023 ambulatory SUMAN Whitley PATRICK [facility] Start: 03-27-2023 End: 03-27-2023 Emergency department patient visit ANNA S WANDA [facility] Start: 02-02-2023 End: 02-02-2023 Emergency department patient visit LIOR Marylou DSOUZAHailyeCate [facility] Start: 12-31-2022 End: 12-31-2022 Office outpatient visit 25 minutes Heriberto Carrera MD Work Phone: [facility] Comment on above: Parkinson's disease (HCC) (Primary Dx) Start: 08-26-2022 End: 08-27-2022 ambulatory SHIRLEY CASTILLO Facility: Start: 07-28-2022 Refill Heriberto Carrera MD Work Phone: [facility] Comment on above: Refill Request Start: 07-19-2022 End: 07-20-[address] KENYATTA GOLDSTEIN . Facility:[facility] Start: 07-16-2022 End: 07-16-2022 Office outpatient new 45 minutes Heriberto Carrera MD Work Phone: [facility] Comment on above: Parkinson's disease (HCC) (Primary Dx); Anxiety Start: 07-10-2022 End: 07-11-2022 ambulatory ANNA MUÑOZ Facility:[facility] Start: 07-01-2022 Telephone encounter Humberto Diaz MD Work Phone: Neurology Comment on above: External Referrals/r esources Start: 06-19-2022 End: 06-19-2022 ambulatory ANNA MUÑOZ Facility:[facility] Start: 06-17-2022 Encounter for other preprocedural examination [facility] Start: 06-17-2022 Encounter for preprocedural cardiovascular examination [facility] Start: 06-17-2022 Encounter for preprocedural laboratory examination [facility] Start: 06-16-2022 End: 06-17-2022 ambulatory ANNA MUÑOZ Facility:[facility] Start: 06-16-2022 End: 06-17-2022 Encounter for preprocedural laboratory examination ANNA MUÑOZ Facility:[facility] Start: 06-04-2022 End: 06-05-2022 ambulatory Saurav Kerns Facility:[facility] Start: 04-21-2022 End: 04-21-2022 ambulatory Andi Eason Other [employer] Other Start: 04-21-2022 Office outpatient vi sit 25 minutes Andi Eason [facility] Infectious Disease Start: 04-15-2022 End: 04-16-[address] FARRUKH OTT . Facility:[facility] Start: 03-18-2022 End: 03-19-[address] FARRUKH OTT . Facility:[facility] Start: 03-12-2022 End: 03-13-2022 ambulatory Saurav Kerns Facility:[facility] Start: 02-25-2022 End: 02-26-[address] FARRUKH OTT . Facility:[facility] Start: 01-29-2022 End: 01-30-2022 ambulatory Saurav Kerns Facility:[facility] Start: 12-23-2021 End: 12-23-2021 ambulatory Andi Eason Other [employer] Other Start: 12-23-2021 Office outpatient vi sit 25 minutes Andi BHAKTA Infect[facility] Start: 12-10-2021 End: 12-10-2021 Patient encounter procedure [employer]C Anna Wanda Work Phone: [facility] Start: 12-05-2021 End: 12-05-2021 Patient encounter procedure [employer]C Anna Wanda Work Phone: [facility] [place] Start: 11-25-2021 End: 11-25-2021 ambulatory Andi Eason Other [employer] Other Start: 11-25-2021 Telephone encounter Andi Eason [facility] Infect[facility] Start: 11-15-2021 End: 11-16-2021 ambulatory VICKIE HART Facility:[facility] Start: 11-14-2021 End: 11-15-2021 ambulatory ANNA MUÑOZ Facility:[facility] Start: 11-01-2021 End: 11-02-2021 ambulatory Saurav Kerns Facility:[facility] Start: 10-31-2021 End: 10-31-2021 ambulatory [employer] Anna Esperanzamarylou LangleyWanda Work Phone: [facility] Work Phone: Start: 10-31-2021 End: 10-31-2021 Discharged Recurring [employer] Anna Langleymer Work Phone: [facility]-Physical [facility] [place] Start: 10-31-2021 Registered Recurring [employer]C Aneta la Wanda Work Phone: [facility] [place] Start: 10-24-2021 End: 10-24-2021 ambulatory Andi Eason Other [employer] Other Start: 10-24-2021 Office outpatient vi sit 25 minutes Andi BHAKTA Infectious Disease Start: 10-18-2021 End: 10-19-2021 ambulatory VICKIE HART Facility:[facility] Start: 10-11-2021 End: 10-12-2021 ambulatory VICKIE HART Facility:[facility] Start: 10-04-2021 End: 10-05-2021 ambulatory Saurav Kerns Facility:[facility] Start: 09-27-2021 End: 09-28-2021 ambulatory VICKIE HART Facility:[facility] Start: 09-25-2021 End: 09-25-2021 ambulatory Andi Eason Other [employer] Other Start: 09-25-2021 Telephone encounter Andi MEYERS [facility] Infect[facility] Start: 09-19-2021 End: 09-19-2021 Patient encounter procedure JALYN Muñoz Work Phone: [facility] [place] Start: 09-18-2021 End: 09-19-2021 ambulatory VICKIE HART Facility:[facility] Start: 09-18-2021 End: 09-19-2021 ambulatory SHIRLEY CASTILLO Facility:[facility] Start: 09-13-2021 End: 09-14-2021 ambulatory VICKIE HART Facility:[facility] Start: 09-06-2021 End: 09-07-2021 ambulatory Saurav Kerns Facility:[facility] Start: 08-22-2021 End: 08-22-2021 ambulatory Andi Eason Other [employer] Other Start: 08-22-2021 Telephone encounter Andi MEYERS [facility] Start: 08-14-2021 End: 08-14-2021 ambulatory Andi Eason Other [employer] Other Start: 08-14-2021 Office outpatient vi sit 25 minutes Andi Eason [facility] Start: 07-29-2021 End: 07-29-2021 ambulatory Andi Eason Other [employer] Other Start: 07-29-2021 Office outpatient vi sit 25 minutes Andi Eason [facility] Start: 06-21-2021 End: 06-21-2021 ambulatory Michael Shah Other [facility] [employer] Other Start: 06-21-2021 Telephone encounter Michael Alyssa MEYERS [facility] [place] Start: 01-16-2021 Telephone encounter Michael Bond [facility] Start: 01-09-2021 Telephone encounter Michael Guzmanley LUIGI Bond [facility] Start: 01-02-2021 Postop follow up vis it related to original px Michael Alyssa YONY [facility] Start: 01-02-2021 Telephone encounter Michael Alyssa LUIGI Bond [facility] Start: 04-27-2018 End: 04-28-2018 Patient encounter procedure [facility] Start: 04-20-2018 Encounter for other preprocedural examination [facility] Start: 04-20-2018 End: 04-20-2018 Patient encounter procedure [facility] Start: 07-01-2017 End: 07-02-2017 Patient encounter procedure [facility] Procedures Date Procedure Procedure Detail Performing Clinician Start: 12-10-2021 X-ray of left ankle [facility] Anna Muñoz Work Phone: Start: 12-05-2021 XR pre/post mri xray [facility] Anna Muñoz Work Phone: Start: 12-05-2021 MRI of cervical spin e without contrast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 consider increasing it at your next visit if the melatonin is not beneficial. RLS I have sent in a new prescription for Lyrica, 75 mg capsules. Start this after you finish your current prescription. Follow up virtually with Dr. Carrera in 3 months. Interested in clinical research? Not discussed Updated Movement Disorder Medication Schedule: Medications 6:30 AM 9:30 AM 12:30 PM 3:30 PM 6:30 PM BED Sinemet 25/100 mg 1.5 1.5 1.5 1.5 1.5 Sinemet CR 25/100 1 amantadine 1 1 Rasagiline 0.5mg 1 Level of service : 17069 (40-68 min). Time spent 65 min on the day of service, which included preparing to see the patient, opmr-ei-sroc patient care, completing clinical documentation, obtaining and/or reviewing separately obtained history, performing a medically appropriate examination, counseling and educating the patient/family/caregiver, and ordering medications, tests, or procedures. Thank you for allowing me to be part of the clinical care of this patient! I look forward to continued participation in the patient s care with you. Please do not hesitate to call with any questions. Sincerely, Shirley Peter APRN.CINDY documented in this encounter [facility] 07-18-2024 Telephone encount er Note Pt is having surgery coming up and they need the last OV note faxed over. Faxed to [facility] at [phone]. [facility] 07-18-2024 Miscellaneous Notes Formattin g of this note might be different from the original. Pt is having surgery coming up and they need the last OV note faxed over. Faxed to [facility] at [phone]. documented in this encounter [facility] 07-14-2024 Telephone encount er Note Patient requests via MyChart refills as follows: When approved Rx escribed to [facility]. 04/21/24 FUSekou w/Dr. Carrera Requested Prescriptions Pending Prescriptions Disp Refills carbidopa-levodopa (SINEMET 25-100) 25-100 mg per tablet 225 tablet 1 Sig: TAKE 1 & 1/2 (ONE & ONE-HALF) TABLETS BY MOUTH 5 TIMES A DAY (6:30 AM, 9:30 AM, 12:30 PM, 3:30 PM AND 6:30 PM) Please review and advise. Keena Warren [facility] 07-14-2024 Miscellaneous Notes Formattin g of this note is different from the original. Patient requests via MyChart refills as follows: [facility] 04/21/24 FUSekou w/Dr. Carrera Requested Prescriptions Pending Prescriptions Disp Refills carbidopa-levodopa (SINEMET 25-100) 25-100 mg per tablet 225 tablet 1 Sig: TAKE 1 & 1/2 (ONE & ONE-HALF) TABLETS BY MOUTH 5 TIMES A DAY (6:30 AM, 9:30 AM, 12:30 PM, 3:30 PM AND 6:30 PM) Please review and advise. Keena Warren documented in this encounter [facility] 05-09-2024 Telephone encount er Note Patient requests via MyChart refills as follows: [facility] 02/03/24 FUV w/Clair Amaya PA-C Requested Prescriptions Pending Prescriptions Disp Refills carbidopa-levodopa CR (SINEMET CR) 25-100 mg per tablet 90 tablet 3 Sig: Take 1 tablet by mouth at bedtime Please review and advise. Keena Mulligansec [facility] 05-09-2024 Miscellaneous Notes Formattin g of this note is different from the original. Patient requests via MyChart refills as follows: When approved Rx escribed to [facility]. 02/03/24 [facility]UV w/Clair Amaya PA-C Requested Prescriptions Pending Prescriptions Disp Refills carbidopa-levodopa CR (SINEMET CR) 25-100 mg per tablet 90 tablet 3 Sig: Take 1 tablet by mouth at bedtime Please review and advise. Keena Warren documented in this encounter [facility] 05-02-2024 Evaluation note Diagnosis Onset Date Resolution GERD (gastroesophageal reflux disease) acute May 02 11:10am Screening for prostate cancer noneactive May 02 11:10am Screening for colon cancer noneactive May 02 11:10am Screening for cardiovascular condition noneactive May 02, 2024 11:10am Rash and nonspecific skin eruption noneactive June 20, 2024 9:05am [facility] Work Phone: [phone]) 590-842401-20-2025 Telephone encounter Note* Telephone Encounter - Kalina Johnson RN - 05/02/2024 12:06 PM EST Information faxed as requested [facility]01-20-2025 Miscellaneous Notes* Telephone Encounter - Kalina Johnson RN - 05/02/2024 12:06 PM EST Information faxed as requested documented in this encounterFirelands [facility] Center01-09-2025 Instructions* Patient Instructions* Heriberto Carrera MD - 04/21/2024 11:53 AM EST Please start taking amantadine 100 mg. Take with your first dose of carbidopa- levodopa every day for 1 week, then start taking with your first and third dose and continue on that. Pay attention for insomnia as you do this Try to pay attention as to whether your curling is when the medication is wearing off Please resume Lyrica 50 mg three times a day (take your last dose 1 hour before going to bed for restless leg syndrome) Future consideration: Rytary Please continue to exercise Please get iron levels and ferritin done Follow up in 3 months virtually documented in this encounterFirelands [facility] Center01-09-2025 NoteHNO ID: [id number] Author: HERIBERTO CARRERA MD Service: ? Author Type: Physician Type: Progress Notes Filed: 04/21/2024 16:09 Note Text: [facility] - FOLLOW UP EVALUATION Rio Alanis MD [address] [address] Dear Rio Alanis MD: I had the pleasure of seeing Mr. Boss for follow-up today. As you know he is a 58 year old right-handed male with a history of tremor predominant Parkinson disease since 2016. Subjective Previous Plan-02/03/2024 Visit: I have sent in your Sinemet prescription, as well as a new prescription for Sinemet CR at bedtime to assist with symptoms when you wake up. It is very important that we see our Parkinson's Disease patients in person with relative frequency so that we can ensure your medication schedule is appropriate and optimized. Please come see Dr. Carrera in person this April. Interval History: 58 year old male, right handed He feels much better. He feels his tremor is better than before. He notices irregular movements in his left arm 30 mins to 45 mins after he takes his dose. He notices it with every dose and has been getting worse over the past 2 weeks. Sleep is getting worse over the past 2 weeks as he has increase urge to move his legs while lying down at night. Upper back pain worse when he lies down 7/10 has been noticing since the past month, gets better when he takes his ibuprofen. This doesn't resolve the pain completely but gets him through the day. He notices his left arm and leg are tensing up and has spasms 30 mins before the next dose is due. He also notices his stiffness persists throughout the day but worsens before the next dose. He tries to have the medication with food and he feels better than before in terms of his GI side effects. Has a bowl of oatmeal usually along with his medication. He does 30 mins of walking and stretching almost daily and then spends the rest of the day with his grand kids. Due to multiple surgeries in his left ankle he can't exercise much. He feels the anxiety is the same, he talks to his sister whenever he feels down. He fell from his bed twice as he felt he was in a dream trying to get a away happened twice within the past year. Denies constipation. He still has hyposmia hasn't worsened. His let leg curls inside since a month Movement Disorders Medications Schedule - as of the start of the visit: Medications 6:30 AM 9:30 AM 12:30 PM 3:30 PM 6:30 PM BED Sinemet 25/100 mg 1.5 1.5 1.5 1.5 1.5 Sinemet CR 25/100 1 Parkinson's Motor Complications Medication benefit onset: 60 minutes Medication duration: 3 hours Wearing off: yes (Comment: tremor) Questionnaires: Mood/Behavior Depression: PHQ-9 Score: 13 usually representing moderate (10-14) depression. Anxiety: Finally, the following table shows the patient's overall global physical and mental health using the PROMIS scale: PROMIS-10 Flowsheet Row [facility] from 02/03/2024 in [facility] from 11/03/2022 in [facility] Global Physical Health T Score 39.8 39.8 Global Mental Health T Score 38.8 43.5 0-10 Standard Pain Scale 3 3 *PROMIS-10 scoring scale: mean = 50, over 50 is above average, under 50 is below average ALLERGIES Allergen Reactions Vancomycin Other: See Comments Current Outpatient Medications Medication Sig carbidopa-levodopa (SINEMET 25-100) 25-100 mg per tablet TAKE 1.5 TABLET BY MOUTH 5 TIMES DAILY (6:30 AM, 9:30 AM, 12:30 PM, 3:30 PM and 6:30 PM) mirtazapine (REMERON) 15 mg tablet Take 1 tablet by mouth daily at bedtime. carbidopa-levodopa CR (SINEMET CR) 25-100 mg per tablet Take 1 tablet by mouth at bedtime Acetaminophen 500 mg cap Take by mouth. sulfamethoxazole-trimethoprim (BACTRIM DS) 800-160 mg per tablet Take by mouth q 12 HR. IBUPROFEN ORAL Take by mouth. MULTIVITAMIN WITH MINERALS (MULTIVITAMIN AND MINERAL FORMULA ORAL) Take 1 tablet by mouth once daily. pregabalin (LYRICA) 50 mg capsule Take 1 capsule by mouth three times a day for 180 days. amantadine HCl (SYMMETREL) 100 mg capsule Take 1 capsule by mouth two times a day. Take with first dose of carbidopa-levodopa daily for 1 week then start taking with 1st and 3rd dose of carbidopa-levodopa daily and continue on that dose No current facility-administered medications for this visit. Objective Vital Signs: Ht 182.9 cm (6') SpO2 98% BMI 21.56 kg/m? Orthostatic Vitals: Sitting: BP 102/69 Pulse 60 Standing: BP 104/65 Pulse 61 Height: 182.9 cm (6') No LMP for male patient. Body mass index is 21.56 kg/m?. General Physical Examination: General: Awake, alert, interactive, no acute distress, good nutritional status, normal development, well-kept General Neurological Examination: Neurological Exam Mental Status Awake, alert and oriented to person, place and time. Oriented to person, place and time (more content not included)...[facility]01-09-2025 History of Present illness Narrative* Heriberto Carrera MD - 04/21/2024 11:07 AM EST [facility] - FOLLOW UP EVALUATION Rio Alanis MD [address] [facility] [address] [facility] [place] [id number] Dear Rio Alanis MD: I had the pleasure of seeing Mr. Boss for follow-up today. As you know he is a 58 year old right-handed male with a history of tremor predominant Parkinson disease since 2016. Subjective Previous Plan-02/03/2024 Visit: I have sent in your Sinemet prescription, as well as a new prescription for Sinemet CR at bedtime to assist with symptoms when you wake up. It is very important that we see our Parkinson's Disease patients in person with relative frequencyso that we can ensure your medication schedule is appropriate and optimized. Please come see Dr. Carrera in person this April. Interval History: 58 year old male, right handed He feels much better. He feels his tremor is better than before. He notices irregular movements in his left arm 30 mins to 45 mins after he takes his dose. He notices it with every dose and has been getting worse over the past 2 weeks. Sleep is getting worse over the past 2 weeks as he has increaseurge to move his legs while lying down at night. Upper back pain worse when he lies down 7/10 has been noticing since the past month, gets better when he takes his ibuprofen. This doesn't resolve thepain completely but gets him through the day. He notices his left arm and leg are tensing up and has spasms 30 mins before the next dose is due. He also notices his stiffness persists throughout the day but worsens before the next dose. He tries to have the medication with food and he feels better than before in terms of his GI side effects. Has a bowl of oatmeal usually along with his medication. He does 30 mins of walking and stretching almost daily and then spends the rest of the day with his grand kids. Due to multiple surgeries in his left ankle he can't exercise much. He feels the anxiet y is the same, he talks to his sister whenever he feels down. He fell from his bed twice as he felthe was in a dream trying to get a away happened twice within the past year. Denies constipation. Hestill has hyposmia hasn't worsened. His let leg curls inside since a month Movement Disorders Medications Schedule - as of the start of the visit: Medications 6:30 AM 9:30 AM 12:30 PM 3:30 PM 6:30 PM BED Sinemet 25/100 mg 1.5 1.5 1.5 1.5 1.5 Sinemet CR 25/100 1 Parkinson's Motor Complications Medication benefit onset: 60 minutes Medication duration: 3 hours Wearing off: yes (Comment: tremor) Questionnaires: Mood/Behavior Depression: PHQ-9 Score: 13 usually representing moderate (10-14) depression. Anxiety: Finally, the following table shows the patient's overall global physical and mental health using the PROMIS scale: PROMIS-10 Flowsheet Row [facility] from 02/03/2024 in [facility] from 11/03/2022 in [facility] Global Physical Health T Score 39.8 39.8 Global Mental Health T Score 38.8 43.5 0-10 Standard Pain Scale 3 3 *PROMIS-10 scoring scale: mean = 50, over 50 is above average, under 50 is below average ALLERGIES Allergen Reactions Vancomycin Other: See Comments Current Outpatient Medications Medication Sig carbidopa-levodopa (SINEMET 25-100) 25-100 mg per tablet TAKE 1.5 TABLET BY MOUTH 5 TIMES DAILY (6:30 AM, 9:30 AM, 12:30 PM, 3:30 PM and 6:30 PM) mirtazapine (REMERON) 15 mg tablet Take 1 tablet by mouth daily at bedtime. carbidopa-levodopa CR (SINEMET CR) 25-100 mg per tablet Take 1 tablet by mouth at bedtime Acetaminophen 500 mg cap Take by mouth. sulfamethoxazole-trimethoprim (BACTRIM DS) 800-160 mg per tablet Take by mouth q 12 HR. IBUPROFEN ORAL Take by mouth. MULTIVITAMIN WITH MINERALS (MULTIVITAMIN & MINERAL FORMULA ORAL) Take 1 tablet by mouth once daily. pregabalin (LYRICA) 50 mg capsule Take 1 capsule by mouth three times a day for 180 days. amantadine HCl (SYMMETREL) 100 mg capsule Take 1 capsule by mouth two times a day. Take with first dose of carbidopa-levodopa daily for 1 week then start taking with 1st and 3rd dose of carbidopa-levodopa daily and continue on that dose No current facility-administered medications for this visit. Objective Vital Signs: Ht 182.9 cm (6') SpO2 98% BMI 21.56 kg/m Orthostatic Vitals: Sitting: BP 102/69 Pulse 60 Standing: BP 104/65 Pulse 61 Height: 182.9 cm (6') No LMP for male patient. Body mass index is 21.56 kg/m . General Physical Examination: General: Awake, alert, interactive, no acute distress, good nutritional status, normal development,well-kept General Neurological Examination: Neurological Exam Mental Status Awake, alert and oriented to person, place and time. Oriented to person, place and time. Recent andremote memory are intact. Speech is normal. Language is fluent with no aphasia. Attention and concentration are normal. Cranial Nerves CN II: Visual acuity is [...] or fasciculations. Motor Normal muscle bulk throughout. No fasciculations present. Increased muscle tone. The following abnormal movements were seen: Slight postural tremor in B/L UE Slight Kinetic Tremor seen on right side Mild Kinetic Tremor seen on left side. Strength is 5/5 throughout all four extremities. Sensory Sensation is intact to light touch, pinprick, vibration and proprioception in all four extremities. Coordination Right: [id number] normal. Rapid alternating movement normal.Left: [id number] normal. Rapid alternating movement normal. Gait Casual gait is normal including stance, stride, and arm swing. Normal pull test. Unable to rise from chair without using arms. Had to grab on to the chair. Movement Disorders Cognitive and Motor Biomeasures: 07/16/2022 12/31/2022 04/21/2024 Processing Speed Processing Speed Total Number Correct 44 39 30 Processing Speed Z score 0.36 -0.13 -1.01 07/16/2022 12/31/2022 04/21/2024 VMT Memory Raw Score 26 26 41 Memory Z Score -1.48 -1.46 -0.24 07/16/2022 12/31/2022 04/21/2024 MDT - RIGHT Hand Dominant MDT Right Hand Time 28.87 31.74 28.12 MDT Left Hand Time 40.05 39.48 36.98 12/31/2022 04/21/2024 Walking Speed Walking Speed Test (25 feet) 8.66 8.32 WST Percentile 15.87 *Percentile interpretation: Higher is better. A score < 50 would be worse than predicted, [id number] would be near predicted and > 50 would be better than predicted. Z score interpretation: higher than -1.5 is within normal; -1.5 to - 2.0 represents mild impairment; lower than -2.0 represents significant impairment Movement Disorders Scales Performed: MDS-UPDRS Motor subscale condition of exam Medication Off/On/Naiive ON Time of UPDRS 1127 Time of Last Medication 0930 Last Medication Taken Sinemet 25/100 DBS Right N/A DBS Left N/A MDS-UPDRS Motor subscale scores Speech 1-Slight. Loss of modulation, diction or volume, but still all words easy to understand. Facial Expression 2-Mild. In addition to decreased eye-blink frequency, Masked facies present in the lower face as well, namely fewer movements around the mouth, such as less spontaneous smiling, butlips not parted. Rigidity Neck 1-Slight. Rigidity only detected with activation maneuver. Rigidity Right Upper Extremity 2-Mild. Rigidity detected without the activation maneuver, but full range of motion is easily achieved. Rigidity Left Upper Extremity 1-Slight. Rigidity only detected with activation maneuver. Rigidity Right Lower Extremity 2-Mild. Rigidity detected without the activation maneuver, but full range of motion is easily achieved. Rigidity Left Lower Extremity 2-Mild. Rigidity detected without the activation maneuver, but full range of motion is easily achieved. Finger Taps Right 1-Slight. a) the regular rhythm is broken with one or two interruptions or hesitations of the tapping movement, b) slight slowing, c) the amplitude decrements near the end of the 10taps. Finger Taps Left 1-Slight. a) the regular rhythm is broken with one or two interruptions or hesitations of the tapping movement, b) slight slowing, c) the amplitude decrements near the end of the 10 taps. Hand Movements Right 2-Mild. a) 3 to 5 interruptions during the movements, b) mild slowing, c) the amplitude decrements midway in the task. Hand Movements Left 2-Mild. a) 3 to 5 interruptions during the movements, b) mild slowing, c) the amplitude decrements midway in the task. Arm Movements Right 2-Mild. a) 3 to 5 interruptions during the movements, b) mild slowing, c) the amplitude decrements midway in the sequence. Arm Movements Left 2-Mild. a) [...] slowing, interruptions or decrements. Leg Agility Right 1-Slight. a) the regular rhythm is broken with one or two interruptions or hesitations of the movement, b) slight slowing, c) the amplitude decrements near the end of the task. Leg Agility Left 2-Mild. a) 3 to 5 interruptions during the movements, b) mild slowness, c) the amplitude decrements midway in the task. Arise From Chair 2-Mild. Pushes self up from arms of chair without difficulty. Gait 2-Mild. Independent walking but with substantial gait impairment. Gait Freezing 0-Normal. No freezing. Posture Stability 3-Moderate. Stands safely, but with absence of postural response, falls if not caught by examiner. Posture 0-Normal. No problems. Body Bradykinesia 3-Moderate. Moderate global slowness and poverty of spontaneous movements. Postural Tremor Hand Right 1-Slight. Tremor is present but less than 1cm in amplitude. Postural Tremor Hand Left 1-Slight. Tremor is present but less than 1cm in amplitude. Kinetic Tremor Right 1-Slight. Tremor is present but less than 1cm in amplitude. Kinetic Tremor Left 2-Mild. Tremor is at least 1 but less than 3 cm in amplitude. Rest Tremor Amplitude Right Upper Extremity 0-Normal. No tremor. Rest Tremor Amplitude Left Upper Extremity 0-Normal. No tremor. Rest Tremor Amplitude Right Lower Extremity 0-Normal. No tremor. Rest Tremor Amplitude Left Lower Extremity 0-Normal. No tremor. Rest Tremor Amplitude Lip/Jaw 1-Slight. < 1 cm in maximal amplitude. Rest Tremor Constancy 3-Moderate. Tremor at rest is present 51-75% of the entire examination period. MDS-UPDRS Motor subscale totals Left Total 17 Right Total 13 Midline Total 15 Tremor Total / 10 9 PIGD Total / 3 5 Overall Total 48 Change Better/Worse Better % Change Compared to Last Filed Total -21.31 Assessment and Plan: Assessment Mr. Boss is a right-handed 58 year old year old male with parkinson disease responding to Sinemet in addition to restless leg syndrome. Has been doing reasonably well overall with motor fluctuations becoming a significant problem. This has necessitated an increase to 5 times daily dosing. If this proves inadequate will need to consider DBS versus Rytary. Also continues to have significant anxiety and will benefit from CBT. Patient was feeling better overall as he notices his tremor getting better. He complained of dyskinesias within 30 to 45 minutes of his dose. Has been having spasms and his left side tensing up 30 minutes before his next dose, which is most likely wearing off dystonia.He also complains of increased stiffness before the next dose further showing the effects of Sinemet wearing off . He also has notices his left leg curling up but can't specify a time. Adding amantadine 100 mg to his regimen could help him with dystonia and also prolong the effect of Sinemet, helping him with the wearing off symptoms. If his dyskinesia and dystonia worsen, switching to Rytary will be considered. He complains of his sleep being worse due to him having restless leg and upper back pain and Lyrica was restarted for this. Iron and ferritin levels were also rechecked. He should continue to do exercise as it will help in slowing down the progression of PD. Follow up virtually to see how he is doing after these new adjustments. The following are the current problems noted and addressed during this visit: Parkinson's disease without dyskinesia, with fluctuating manifestations (hcc) (primary encounter diagnosis) Neuropathy Rls (restless legs syndrome) Restless leg syndrome, nonfamilial, uncontrolled Plan 04/21/2024 Visit: Please start taking amantadine 100 mg. Take with your first dose of carbidopa- levodopa every day for 1 week, then start taking with your first and third dose and continue on that. Pay attention for insomnia as you do this Try to pay attention as to whether your curling is when the medication is wearing off Please resume Lyrica 50 mg three times a day (take your last dose 1 hour before going to bed for restless leg syndrome) Future consideration: Rytary Please continue to exercise Please get iron levels and ferritin done Follow up in 3 months virtually Interested in clinical research? Not discussed Updated Movement Disorders Medication Schedule: Medications 6:30 AM 9:30 AM 12:30 PM 3:30 PM 6:30 PM BED Sinemet 25/100 mg 1.5 1.5 1.5 1.5 1.5 Sinemet CR 25/100 1 amantadine 1 1 Return at or around: 07/20/24 I performed a history and physical examination of the patient and discussed the management with Cara Mcneal. I reviewed their note and agree with the documented findings and plan of care. Aside from minor typographical errors, any additions from myself can be found in italicized text. Thank you for allowing me to be part of the clinical care of this patient! I look forward to continued participation in the patient s care with you. Please do not hesitate to call with any questions. Sincerely, Heriberto Carrera MD Associate Staff Movement [facility] Cara Mcneal Final Year Medical Student documented in this encounterFirelands [facility] Center11-27-2024 Telephone encounter Note * Telephone Encounter - Keena Shafer - 03/09/2024 10:03 AM EST Patient requests via MyChart refills as follows: When approved Rx escribed to [facility]. 02/09/24 JORDIN whitley/Clair Amaya PA-C Requested Prescriptions Pending Prescriptions Disp Refills carbidopa-levodopa (SINEMET 25-100) 25-100 mg per tablet 225 tablet 3 Sig: TAKE 1 TABLET BY MOUTH 5 TIMES DAILY (6:30 AM, 9:30 AM, 12:30 PM, 3:30 PM and 6:30 PM) Please review and advise. Keena Warren [facility]11-27-2024 Miscellaneous Notes* Telephone Encounter - Keena Shafer - 03/09/2024 10:03 AM EST Patient requests via MyChart refills as follows: When approved Rx escribed to [facility]. 02/09/24 JORDIN whitley/Clair Amaya PA-C Requested Prescriptions Pending Prescriptions Disp Refills carbidopa-levodopa (SINEMET 25-100) 25-100 mg per tablet 225 tablet 3 Sig: TAKE 1 TABLET BY MOUTH 5 TIMES DAILY (6:30 AM, 9:30 AM, 12:30 PM, 3:30 PM and 6:30 PM) Please review and advise. Keena Warren documented in this encounterFirelands Regional Medical Center11-14-2024 Telephone encounter Note * Telephone Encounter - Briana Douglass - 02/25/2024 4:29 PM EST Last appt 02/03/24 Clair Requested Prescriptions Pending Prescriptions Disp Refills mirtazapine (REMERON) 15 mg tablet 90 tablet 3 Sig: Take 1 tablet by mouth daily at bedtime. [facility]11-[facility] Miscellaneous Notes* Telephone Encounter - Briana Douglass - 02/25/2024 4:29 PM EST Last appt 02/03/24 Clair Requested Prescriptions Pending Prescriptions Disp Refills mirtazapine (REMERON) 15 mg tablet 90 tablet 3 Sig: Take 1 tablet by mouth daily at bedtime. documented in this encounterFirelands Regional Medical Center10-23-2024 NoteHNO ID: [id number] Author: CLAIR AMAYA PA-C Service: ? Author Type: Physician [employer] Make Up Helper Type: Progress Notes Filed: 02/03/2024 09:54 Note Text: [facility] - FOLLOW UP EVALUATION - VIRTUAL VISIT Rio Alanis MD [address] [address] Dear Rio Alanis MD: I had the pleasure of seeing Mr. Boss for follow-up today. As you know he is a 58 year old right-handed male with a history of tremor predominant Parkinson disease since 2016. We had a visit using: nkf-pharmaom nkf-pharmaom I have communicated my name and active licensure. The patient's identity and physical location were verified at the time of this visit. Either the patient or their legal motor vehicle representative has been informed of the risks and benefits of -- and alternatives to -- treatment through a remote evaluation and consents to proceed with the evaluation remotely. Subjective During his previous visit the following plan was made: 12/31/[address] Carrera Please increase Sinemet to 5 times a day. Try to take it with a protein bar, ensure or milkshake. If this is tolerated we can gradually increase Sinemet to 2 tabs at a time Future considerations: Tyler, deep brain stimulation Please continue your excellent exercise regimen Referral to Movement Disorder Psychology for Cognitive Behavior Therapy Virtual visit in 6-8 weeks Interval History Sandra joins this video visit for prescription refill. He has been out of Sinemet since 01/25 and was unable to have it refilled without a visit. He reports that he has been 'miserable.' The schedule of 1.5 tablets five times per day was working quite well. His main concern was the stiffness and tremor he experienced upon waking up in the morning. He is also wondering if we would be able to prescribe lyrica, as this prescription has run out as well. It was last filled by his local neurologist. Movement Disorders Medications Schedule - as of the start of the visit: Medications 6:30 AM 9:30 AM 12:30 PM 3:30 PM 6:30 PM Sinemet 25/100 mg 1.5 1.5 1.5 1.5 1.5 Parkinson's Motor Complications Medication benefit onset: 60 minutes Medication duration: 3 hours Wearing off: yes (Comment: tremor) ALLERGIES Allergen Reactions Vancomycin Other: See Comments Current Outpatient Medications Medication Sig carbidopa-levodopa (SINEMET 25-100) 25-100 mg per tablet TAKE 1 TABLET BY MOUTH 5 TIMES DAILY (6:30 AM, 9:30 AM, 12:30 PM, 3:30 PM and 6:30 PM) carbidopa-levodopa CR (SINEMET CR) 25-100 mg per tablet Take 1 tablet by mouth at bedtime mirtazapine (REMERON) 15 mg tablet Take 1 tablet by mouth daily at bedtime. Acetaminophen 500 mg cap Take by mouth. pregabalin (LYRICA) 25 mg capsule 50 mg three times daily. Breakfast Lunch Dinner sulfamethoxazole-trimethoprim (BACTRIM DS) 800-160 mg per tablet Take by mouth q 12 HR. IBUPROFEN ORAL Take by mouth. MULTIVITAMIN WITH MINERALS (MULTIVITAMIN AND MINERAL FORMULA ORAL) Take 1 tablet by mouth once daily. No current facility-administered medications for this visit. Questionnaires: In addition, the following areas that may be affected by abnormal involuntary movements were evaluated: Daily activities Difficulties with eating: Yes (mild) Difficulties in dressing: Yes (slight) Difficulties with hygiene activities: Yes (slight) Difficulties with handwritin (none) Difficulties with doing hobbies and other activities: Yes (slight) Difficulties turning in bed: Yes (slight) Difficulties getting out of bed, car or chair: Yes (slight) Tremors/Gait/Balance Shaking or tremors: Yes (moderate) Walking and balance problems: Yes (mild) Number of falls in the Last Month: 2 Gait freezing: Yes (slight) Autonomic/Pain Lightheadeness on standing: Yes (slight) Urinary problems: Yes (mild) Constipation problems: Yes (slight) Pain and other sensations: Yes (moderate) Speech/Swallowing Speech problems: Yes (slight) Drooling: Yes (mild) Chewing and swallowing problems: Yes (slight) Sleep/Fatigue Sleep problems: Yes (mild) Daytime sleepiness: Yes (mild) Fatigue: Yes (moderate) Mood/Behavior Depression: PHQ-9 Score: 9 usually representing mild (5-9) depression. Anxiety: JUAN CARLOS-7 Total Score: 7 usually representing mild (5-9) anxiety. Finally, the following table shows the patient's overall global physical and mental health using the PROMIS scale: PROMIS-10 Flowsheet Row Appointment from 02/03/2024 in [facility] from 11/03/2022 in [facility] T Score 39.8 39.8 Global Mental Health T Score 38.8 43.5 0-10 Standard Pain Scale 3 3 *PROMIS-10 scoring scale: mean = 50, over 50 is above average, under 50 is below average Objective General Physical Examination: Awake, alert, interactive, no acute distress. Only a limited general examination was done due to video format. Neurological E (more content not included)...[facility] 02-03-2024 History of Present illness Narrative* Clair Amaya PA-C - 02/03/2024 8:08 AM EDT [facility] - FOLLOW UP EVALUATION - VIRTUAL VISIT Rio Alanis MD [address] [place] [address] Dear Rio Alanis MD: I had the pleasure of seeing Mr. Boss for follow-up today. As you know he is a 58 year old right-handed male with a history of tremor predominant Parkinson disease since 2016. We had a visit using: nkf-pharmaom nkf-pharmaom I have communicated my name and active licensure. The patient's identity and physical location wereverified at the time of this visit. Either the patient or their legal motor vehicle representative has been informed of the risks and benefits of -- and alternatives to -- treatment through a remote evaluation andconsents to proceed with the evaluation remotely. Subjective During his previous visit the following plan was made: 12/31/[address] Carrera Please increase Sinemet to 5 times a day. Try to take it with a protein bar, ensure or milkshake. If this is tolerated we can gradually increase Sinemet to 2 tabs at a time Future considerations: Rytary, deep brain stimulation Please continue your excellent exercise regimen Referral to Movement Disorder Psychology for Cognitive Behavior Therapy Virtual visit in 6-8 weeks Interval History Sandra joins this video visit for prescription refill. He has been out of Sinemet since 01/25 and wasunable to have it refilled without a visit. He reports that he has been 'miserable.' The schedule of 1.5 tablets five times per day was working quite well. His main concern was the stiffness and tremor he experienced upon waking up in the morning. He is also wondering if we would be able to prescribe lyrica, as this prescription has run out as well. It was last filled by his local neurologist. Movement Disorders Medications Schedule - as of the start of the visit: Medications 6:30 AM 9:30 AM 12:30 PM 3:30 PM 6:30 PM Sinemet 25/100 mg 1.5 1.5 1.5 1.5 1.5 Parkinson's Motor Complications Medication benefit onset: 60 minutes Medication duration: 3 hours Wearing off: yes (Comment: tremor) ALLERGIES Allergen Reactions Vancomycin Other: See Comments Current Outpatient Medications Medication Sig carbidopa-levodopa (SINEMET 25-100) 25-100 mg per tablet TAKE 1 TABLET BY MOUTH 5 TIMES DAILY (6:30AM, 9:30 AM, 12:30 PM, 3:30 PM and 6:30 PM) carbidopa-levodopa CR (SINEMET CR) 25-100 mg per tablet Take 1 tablet by mouth at bedtime mirtazapine (REMERON) 15 mg tablet Take 1 tablet by mouth daily at bedtime. Acetaminophen 500 mg cap Take by mouth. pregabalin (LYRICA) 25 mg capsule 50 mg three times daily. Breakfast Lunch Dinner sulfamethoxazole-trimethoprim (BACTRIM DS) 800-160 mg per tablet Take by mouth q 12 HR. IBUPROFEN ORAL Take by mouth. MULTIVITAMIN WITH MINERALS (MULTIVITAMIN & MINERAL FORMULA ORAL) Take 1 tablet by mouth once daily. No current facility-administered medications for this visit. Questionnaires: In addition, the following areas that may be affected by abnormal involuntary movements were evaluated: Daily activities Difficulties with eating: Yes (mild) Difficulties in dressing: Yes (slight) Difficulties with hygiene activities: Yes (slight) Difficulties with handwritin (none) Difficulties with doing hobbies and other activities: Yes (slight) Difficulties turning in bed: Yes (slight) Difficulties getting out of bed, car or chair: Yes (slight) Tremors/Gait/Balance Shaking or tremors: Yes (moderate) Walking and balance problems: Yes (mild) Number of falls in the Last Month: 2 Gait freezing: Yes (slight) Autonomic/Pain Lightheadeness on standing: Yes (slight) Urinary problems: Yes (mild) Constipation problems: Yes (slight) Pain and other sensations: Yes (moderate) Speech/Swallowing Speech problems: Yes (slight) Drooling: Yes (mild) Chewing and swallowing problems: Yes (slight) Sleep/Fatigue Sleep problems: Yes (mild) Daytime sleepiness: Yes (mild) Fatigue: Yes (moderate) Mood/Behavior Depression: PHQ-9 Score: 9 usually representing mild (5-9) depression. Anxiety: JUAN CAROLS-7 Total Score: 7 usually representing mild (5-9) anxiety. Finally, the following table shows the patient's overall global physical and mental health using the PROMIS scale: PROMIS-10 Flowsheet Row Appointment from 02/03/2024 in [facility] from 11/03/2022 in [facility] T Score 39.8 39.8 Global Mental Health T Score 38.8 43.5 0-10 Standard Pain Scale 3 3 *PROMIS-10 scoring scale: mean = 50, over 50 is above average, under 50 is below average Objective General Physical Examination: Awake, alert, interactive, no acute distress. Only a limited general examination was done due to video format. Neurological Exam Mental Status Awake, alert and oriented to person, place and time. Speech is normal. Language is fluent with no aphasia. Cranial Nerves CN III, IV, : Extraocular movements grossly intact bilaterally. Normal lids and orbits bilaterally. CN VII: Hypomimia Motor Clearly off medications. Unable to hold video phone still for the visit. Assessment and Plan: Assessment Mr. Boss is a right-handed 58 year old male with parkinson disease responding to Sinemet in addition to restless leg syndrome. Has been doing reasonably well overall with motor fluctuations becoming a significant problem. This has necessitated an increase to 5 times daily dosing. If this proves inadequate will need to consider DBS versus Rytary. Also continues to have significant anxiety and will benefit from CBT. Today he joins this video visit for a medication refill, as he has been out of Sinemet for a week. He is 'miserable.' He has not been seen in the office in over one year. I provided him with a refill, as well as a prescription for Sinemet CR given his significant morning symptoms. I emphasized the importance of his return to our office for in person examination with Dr. Carrera. He agrees to this. The following are the current problems noted and addressed during this visit: Parkinson's disease without dyskinesia, with fluctuating manifestations (hcc) (primary encounter diagnosis) Plan 02/03/2024 Visit: I have sent in your Sinemet prescription, as well as a new prescription for Sinemet CR at bedtime to assist with symptoms when you wake up. It is very important that we see our Parkinson's Disease patients in person with relative frequencyso that we can ensure your medication schedule is appropriate and optimized. Please come see Dr. Carrera in person this April. Patient's perception of importance for healthcare provider to let them know of research trials for which they may be eligible? Very Important Interested in clinical research? Not discussed Updated Movement Disorder Medication Schedule: Medications 6:30 AM 9:30 AM 12:30 PM 3:30 PM 6:30 PM BED Sinemet 25/100 mg 1.5 1.5 1.5 1.5 1.5 Sinemet CR 25/100 1 Level of service : 08626 (20-29 min). Time spent 28 min on the day of service, which included preparing to see the patient, completing clinical documentation, obtaining and/or reviewing separately obtained history, counseling and educating the patient/family/caregiver, ordering medications, tests, or procedures, and care coordination (not separately reported). Thank you for allowing me to be part of the clinical care of this patient! I look forward to continued participation in the patient s care with you. Please do not hesitate to call with any questions. Sincerely, Clair Amaya PA-C documented in this encounterFirelands [facility] Center07-22-2024 Telephone encounter Note * Telephone Encounter - Jocelyn Flower - 11/02/2023 10:17 AM EDT Pt requesting refill as follows: Last FUV Dec 2022 with US. No FUV scheduled - staff message sent to schedulers to contact. Ean Requested Prescriptions Pending Prescriptions Disp Refills carbidopa-levodopa (SINEMET 25-100) 25-100 mg per tablet 150 tablet 0 Sig: TAKE 1 TABLET BY MOUTH 5 TIMES DAILY (6:30 AM, 9:30 AM, 12:30 PM, 3:30 PM and 6:30 PM) Upon approval, script will be sent electronically to the patient's pharmacy. Jocelyn Menon, Head [employer] Coordinator III [facility]07-22-2024 Miscellaneous Notes* Telephone Encounter - Jocelyn Flower - 11/02/2023 10:17 AM EDT Pt requesting refill as follows: Last FUV Dec 2022 with US. No FUV scheduled - staff message sent to schedulers to contact. Ean Requested Prescriptions Pending Prescriptions Disp Refills carbidopa-levodopa (SINEMET 25-100) 25-100 mg per tablet 150 tablet 0 Sig: TAKE 1 TABLET BY MOUTH 5 TIMES DAILY (6:30 AM, 9:30 AM, 12:30 PM, 3:30 PM and 6:30 PM) Upon approval, script will be sent electronically to the patient's pharmacy. Jocelyn Menon, [employer] Coordinator III documented in this encounterFirelands Regional Medical Center06-17-2024 Telephone encounter Note * Telephone Encounter - Briana Douglass - 09/28/2023 3:57 PM EDT Last appt 12/31/22 US Requested Prescriptions Pending Prescriptions Disp Refills carbidopa-levodopa (SINEMET 25-100) 25-100 mg per tablet 150 tablet 0 Sig: TAKE 1 TABLET BY MOUTH 5 TIMES DAILY (6:30 AM, 9:30 AM, 12:30 PM, 3:30 PM and 6:30 PM) [facility]06-17-2024 Miscellaneous Notes* Telephone Encounter - Briana Douglass - 09/28/2023 3:57 PM EDT Last appt 12/31/22 US Requested Prescriptions Pending Prescriptions Disp Refills carbidopa-levodopa (SINEMET 25-100) 25-100 mg per tablet 150 tablet 0 Sig: TAKE 1 TABLET BY MOUTH 5 TIMES DAILY (6:30 AM, 9:30 AM, 12:30 PM, 3:30 PM and 6:30 PM) documented in this encounterFirelands Regional Medical Center04-04-2024 Miscellaneous Notes* Telephone Encounter - Briana Douglass - 07/16/2023 9:21 AM EDT Last appt 12/31/22 US Requested Prescriptions Pending Prescriptions Disp Refills carbidopa-levodopa (SINEMET 25-100) 25-100 mg per tablet 360 tablet 3 Sig: TAKE 1 TABLET BY MOUTH 5 TIMES DAILY (6:30 AM, 9:30 AM, 12:30 PM, 3:30 PM and 6:30 PM) documented in this encounterFirelands Regional Medical Center09-20-2023 Instructions* Patient Instructions* Heriberto Carrera MD - 12/31/2022 10:05 AM [...] or you can send a message through [employer]. You can also now schedule and select appointments through [employer]. Heriberto Carrera MD documented in this encounterFirelands Regional Medical Center09-20-2023 History of Present illness Narrative* Heriberto Carrera MD - 12/31/2022 9:59 AM EDT [facility] - FOLLOW UP EVALUATION Rio Alanis MD [address] [facility] [address] [facility] [id number] Dear Rio Alanis MD: I had the [...] recently, which is unusual. Also - is postLLE surgery a few weeks ago. Will check UA/culture to rule out bladder infection. If the results are positive - we will send the results to your primary care provider to treat. Mood - Admitting to anxiety > depression. Started mirtazepine 1 week ago. Explained that it willtake 3-6 weeks for the mirtazapine to kick [...] to wear off 1 hour prior to nextdose. Exercises daily--bicycle and walking but this is [...] 1 TABLET BY MOUTH 5 TIMES DAILY (6:30AM, 9:30 AM, 12:30 PM, 3:30 PM and 6:30 PM) No current facility-administered medications for this visit. Objective Physical Examination: Vital Signs: BP 101/61 (BP Site: Right Arm, BP Position: Sitting, BP Cuff Size: Regular Adult) Pulse 61 Ht 182.9 cm (6') Wt 72.1 kg (159 lb) SpO2 98% BMI 21.56 kg/m General: Awake, alert, interactive, no acute distress, good nutritional status, normal development,well-kept Neurological Exam Mental Status Awake, alert and oriented to person, place and time. Recent and remote memory are intact. Speech isnormal. Language is fluent with no aphasia. Cranial [...] the mouth, such as less spontaneous smiling, butlips not parted. Rigidity Neck 2-Mild. Rigidity detected [...] amplitude decrements near the end of the 10taps. Finger Taps Left 2-Mild. a) 3 to [...] Associate Staff Movement disorders [facility] documented in this encounterFirelands Regional Medical Center05-16-2023 NotePROCEDURE: XR FOOT LT MIN 3 VIEWS COMPARISON: 07/19/2022 HISTORY: Pain [...] Electronically authenticated by: SHIRLEY CASTILLO Date: 2022-08-26 10:49[facility]04-17-2023 Miscellaneous Notes* Telephone Encounter - Elda Albert - 07/28/2022 8:02 AM EDT Request from patient requesting refill. Please E-Scribe to Ean. Last OV: 07/16/22 with US Future OV: None Requested Prescriptions Pending Prescriptions Disp Refills carbidopa-levodopa (SINEMET 25-100) 25-100 mg per tablet 360 tablet 3 Sig: TAKE 1 TABLET BY MOUTH 4 TIMES DAILY (8 AM, NOON, 4 PM, 8 PM) Elda Kimble documented in this encounterFirelands Regional Medical Center04-08-2023 NotePROCEDURE: XR FOOT LT MIN 3 VIEWS HISTORY: Pain in left [...] Electronically authenticated by: SAURAV KERNS Date: 2022-07-19 12:12[facility]-05-[facility] Instructions* Patient Instructions* Heriberto Carrera MD - 07/16/2022 2:51 PM [...] At this point please send me a Scirra message so we can discuss future steps Try to exercise regularly as this has evidence for slowing down Parkinson disease. Aerobic exerciseis preferred (i.e. low resistance fast reps 30-40 minutes a day, 4 or more times per week). Suggested activities: recumbent exercise bike or elliptical. Follow up with me in 3 months via virtual visit documented in this encounterFirelands Regional Medical Center04-05-2023 History of Present illness Narrative* Heriberto Carrera MD - 07/16/2022 2:14 PM EDT [facility] - NEW PATIENT EVALUATION Primary Care Provider: Rio Alanis MD [address] [facility] [address] [facility] [place] [phone] Dear Rio Alanis MD: I had the [...] constipation, for which he takes docusate as needed.Also endorses hyposmia. Does not think he snores. [...] Row Office Visit from 07/16/2022 in [facility] T Score 42.3 Global [...] comments: Currently down to 1-2 a day (1/8/19) Substance Use Topics Alcohol use: No Drug [...] no acute distress, good nutritional status, normal development,well-kept Neurological Exam Mental Status Awake, alert and oriented to person, place and time. Recent and remote memory are intact. Speech isnormal. Language is fluent with no aphasia. Attention [...] the mouth, such as less spontaneous smiling, butlips not parted. Rigidity Neck 3-Moderate. Rigidity detected [...] during tapping, b) mild slowing, c) the amplitudedecrements midway in the 10-tap sequence. Finger Taps [...] At this point please send me a [place] [employer] message so we can discuss future steps Try to exercise regularly as this has evidence for slowing down Parkinson disease. Aerobic exerciseis preferred (i.e. low resistance fast reps 30-40 [...] Associate Staff Movement disorders [facility] documented in this encounterFirelands Regional Medical Center03-30-2023 NotePROCEDURE: XR FOOT LT MIN 3 VIEWS COMPARISON: 06/19/2022 HISTORY: Pain [...] Electronically authenticated by: SHIRLEY CASTILLO Date: 2022-07-10 15:59[facility] [id number] Miscellaneous Notes* Telephone Encounter - CHRIS Reyes - 07/01/2022 3:37 PM EDT Records reviewed. Recommend movement disorders neurology consult. Junaid Bey PA-C * Telephone Encounter - Laurence Gr - 07/01/2022 11:51 AM EDT Received outside medical records for patient to be seen in [facility]. Records uploaded into [facility]s. Would you be able to triage please? Thank you, Laurence documented in this encounterFirelands Regional Medical Center02-23-2023 NotePROCEDURE: XR ANKLE LT MIN 3 V, XR [...] Electronically authenticated by: SAURAV KERNS Date: 2022-06-05 08:24[facility]02-23-2023 NotePROCEDURE: XR ANKLE LT MIN 3 V, XR [...] Electronically authenticated by: SAURAV KERNS Date: 2022-06-05 08:24[facility]01-09-2023 Evaluation note* Encounter Date Diagnosis Assessment Notes Treatment Notes Treatment Clinical Notes Apr, MSSA (methicillin susceptible Staphylococcus aureus) [...] lower extremity, subsequent encounter (ICD-10 - T84.629D) [facility] Other 01-03-2023 NoteCONSULTATION CONSULTATION DATE: 04/15/2022 CHIEF [...] The patient will be sent to the [facility] with regards to Parkinson's treatment and education. 3. [facility] has been suggested to Mr. Boss with regards to the grieving process with the current diagnosis that the patient has. The patient understands, is hopeful and would like to proceed. These matters were discussed with Dr. Hart. CC Anna Muñoz, CHEMICAL LABORATORY ASSISTANT Vickie Gutierrez, [facility]12-06-2022 NoteCONSULTATION CONSULTATION DATE: 03/18/2022 CHIEF COMPLAINT: [...] patient understands and would like to proceed.[facility] [id number] NoteCONSULTATION PROCEDURE DATE: 03/18/2022 PREOPERATIVE DIAGNOSIS: Spasming [...] Will be followed up in the office.[facility] [id number] NotePROCEDURE: XR ANKLE LT MIN 3 V [...] Electronically authenticated by: SAURAV KERNS Date: 2022-03-12 17:48[facility] [id number] NoteCONSULTATION CONSULTATION DATE: 02/25/2022 CHIEF COMPLAINT: Left [...] to proceed. CC: Vickie Hart, EDE Muñoz, [facility]11-15-2022 NoteCONSULTATION PROCEDURE DATE: 02/25/2022 PREOPERATIVE DIAGNOSIS: [...] up in the office in two weeks.[facility] [id number] NotePROCEDURE: XR ANKLE LT MIN 3 V [...] Electronically authenticated by: SAURAV KERNS Date: 2022-01-29 21:14[facility]09-12-2022 Evaluation note* Encounter Date Diagnosis Assessment Notes [...] in. Follow-up in 3 to 4 months. [facility] Other 08-15-2022 Evaluation note* Encounter Date Diagnosis Assessment Notes Treatment Notes Treatment Clinical Notes Nov, MSSA (methicillin susceptible Staphylococcus aureus) infection (ICD-10 - A49.01) [facility] Other 07-23-2022 NotePROCEDURE: XR ANKLE LT MIN [...] Electronically authenticated by: SAURAV KERNS Date: 2021-11-02 20:07[facility]07-14-2022 Evaluation note* Encounter Date Diagnosis Assessment Notes [...] one tablet daily perhaps even single strength. Oct, Chronic antibiotic suppression (ICD-10 - Z79.2) [facility] Other 06-24-2022 NotePROCEDURE: XR ANKLE LT MIN [...] Electronically authenticated by: SAURAV KERNS Date: 2021-10-04 16:26[facility]06-15-2022 Evaluation note* Encounter Date Diagnosis Assessment Notes Treatment Notes Treatment Clinical Notes Sep, MSSA (methicillin susceptible Staphylococcus aureus) infection (ICD-10 - A49.01) [facility] Other 05-27-2022 NotePROCEDURE: XR ANKLE LT MIN [...] Electronically authenticated by: SAURAV KERNS Date: 2021-09-06 10:32[facility]05-12-2022 Evaluation note* Encounter Date Diagnosis Assessment Notes Treatment Notes Treatment Clinical Notes August, MSSA (methicillin susceptible Staphylococcus aureus) infection (ICD-10 - A49.01) [facility] Other 05-04-2022 Evaluation note* Encounter Date Diagnosis [...] We will check C-reactive protein as well. [facility] Other 04-18-2022 Evaluation note* Encounter Date Diagnosis [...] lower extremity, initial encounter (ICD-10 - T84.7XXA) [facility] Other 03-08-2022 NoteMicrobiology PROCEDURE: Blood Culture Charcoal [R1] SOURCE: Blood BODY SITE: Arm L COLLECTED DATE/TIME: 06/15/2021 16:32 EST RECEIVED DATE/TIME: 06/15/2021 23:47 EST START DATE/TIME: 06/15/2021 23:47 EST FREE TEXT SOURCE: jem Veronica DO, Ryan Veronica DO, Ryan Leggett FINAL REPORTS Final Report [] Verified Date/Time: 06/18/2021 13:52 EST Staphylococcus aureus In 2 of 2 blood culture bottles drawn. Isolated from aerobic and anaerobic bottles Preliminary gram stain of gram positive cocci in clusters Result called to Diann Castanon ([facility]) by [employer] and results read back for confirmation on [...] Locations R1: This test was performed at: [facility], [address] [place] [address], [address] [place] [address], Qeqgmk[address] Health [address] Elizabeth Boardman HospitalComment on above:Performed By: #### [id number] ####[address] [id number] NoteMicrobiology PROCEDURE: Blood Culture Charcoal [R1] SOURCE: Blood BODY SITE: Arm L COLLECTED DATE/TIME: 06/15/2021 21:40 EST RECEIVED DATE/TIME: 06/15/2021 23:46 EST START DATE/TIME: 06/15/2021 23:46 EST FREE TEXT SOURCE: Ryan Castro DO, DO, Kevin R. FINAL REPORTS Final Report [] Verified Date/Time: 06/18/2021 13:51 EST Staphylococcus aureus In 2 of 2 blood culture bottles drawn. Isolated from aerobic and anaerobic bottles Preliminary gram stain result of gram positive cocci in clusters Result called to Diann Castanon ([facility]) by [facility] and results read back for confirmation [...] Locations R1: This test was performed at: [facility], [address] [place] [address], [id number] , SdadumMercy Health St. Elizabeth Boardman HospitalComment on above:Performed By: #### [id number] ####[facility] [address] [place] hospit[place]ME[place], [place] [id number] Evaluation note* Encounter Date Diagnosis Assessment Notes Treatment Notes Treatment Clinical Notes Jan, Displaced pilon fracture of left tibia, subsequent encounter for closed fracture with malunion (ICD-10 - S82.872P) [facility] Other 09-29-2021 Evaluation note* Encounter Date Diagnosis Assessment Notes Treatment Notes Treatment Clinical Notes Dec, Displaced pilon fracture of left tibia, subsequent encounter for closed fracture with malunion (ICD-10 - S82.872P) [facility] Other 09-22-2021 Evaluation note* Encounter Date Diagnosis [...] 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 Tobacco cessation program at [facility] has been recommended and offered. This discussion was limited to 5 minutes. [facility] [employer] Other Evaluation noteNo InformationNortR[facility] [employer] Other Evaluation noteNo assessment information available [facility] Work Phone: Evaluation note* Diagnosis Parkinson's disease (HCC)- Primary Paralysis agitans Anxiety Anxiety state, unspecified [facility] Parkinson's disease- Primary Paralysis agitans [facility] Diagnosis Osteoarthritis of left hip- Primary Osteoarthrosis, unspecified whether generalized or localized, pelvic region and thigh Status post total replacement of left hip Post-op pain Other acute postoperative pain Primary osteoarthritis of left hip Primary localized osteoarthrosis, pelvic region and thigh Hyperkalemia Hyperpotassemia Parkinson's disease without dyskinesia, with fluctuating manifestations (HCC)- Primary [facility] Diagnosis Osteoarthritis of left hip- Primary Osteoarthrosis, unspecified whether generalized or localized, pelvic region and thigh Status post total replacement of left hip Post-op pain Other acute postoperative pain Primary osteoarthritis of left hip Primary localized osteoarthrosis, pelvic region and thigh Hyperkalemia Hyperpotassemia Anxiety- Primary Anxiety state, unspecified Screening due documented in this encounter [facility]* Diagnosis Osteoarthritis of left hip- Primary Osteoarthrosis, unspecified whether generalized or localized, pelvic region and thigh Status post total replacement of left hip Post-op pain Other acute postoperative pain Primary osteoarthritis of left hip Primary localized osteoarthrosis, pelvic region and thigh Hyperkalemia Hyperpotassemia Parkinson's disease without dyskinesia, with fluctuating manifestations (HCC) documented in this encounter [facility] note* Diagnosis Osteoarthritis of left hip- Primary Osteoarthrosis, unspecified whether generalized or localized, pelvic region and thigh Status post total replacement of left hip Post-op pain Other acute postoperative pain Primary osteoarthritis of left hip Primary localized osteoarthrosis, pelvic region and thigh Hyperkalemia Hyperpotassemia Parkinson's disease without dyskinesia, with fluctuating manifestations (HCC)- Primary Neuropathy Mononeuritis of unspecified site RLS (restless legs syndrome) Restless legs syndrome (RLS) Restless leg syndrome, nonfamilial, uncontrolled Restless legs syndrome (RLS) documented in this encounter [facility] note* Diagnosis Onset Date Resolution Status Admit Date GERD (gastroesophageal reflux disease) acute May 02 11:10am Screening for colon cancer noneactiv e May 02, 2024 11:10am [facility] Work Phone: Evaluation note* Diagnosis Osteoarthritis of left hip- Primary Osteoarthrosis, unspecified whether generalized or localized, pelvic region and thigh Status post total replacement of left hip Post-op pain Other acute postoperative pain Primary osteoarthritis of left hip Primary localized osteoarthrosis, pelvic region and thigh Hyperkalemia Hyperpotassemia Parkinson's disease without dyskinesia, with fluctuating manifestations (HCC) documented in this encounter [facility] note* Diagnosis Osteoarthritis of left hip- Primary Osteoarthrosis, unspecified whether generalized or localized, pelvic region and thigh Status post total replacement of left hip Post-op pain Other acute postoperative pain Primary osteoarthritis of left hip Primary localized osteoarthrosis, pelvic region and thigh Hyperkalemia Hyperpotassemia Parkinson's disease without dyskinesia, with fluctuating manifestations (HCC) documented in this encounter [facility] note* Diagnosis Osteoarthritis of left hip- Primary Osteoarthrosis, unspecified whether generalized or localized, pelvic region and thigh Status post total replacement of left hip Post-op pain Other acute postoperative pain Primary osteoarthritis of left hip Primary localized osteoarthrosis, pelvic region and thigh Hyperkalemia Hyperpotassemia Parkinson's disease without dyskinesia, with fluctuating manifestations (HCC) documented [facility] this encounter [facility]* Diagnosis Osteoarthritis of left hip- Primary Osteoarthrosis, unspecified whether generalized or localized, pelvic region and thigh Status post total replacement of left hip Post-op pain Other acute postoperative pain Primary osteoarthritis of left hip Primary localized osteoarthrosis, pelvic region and thigh Hyperkalemia Hyperpotassemia Parkinson's disease without dyskinesia, with fluctuating manifestations (HCC)- Primary RLS (restless legs syndrome) Restless legs syndrome (RLS) Insomnia, unspecified type documented in this encounter [facility] general Narrative - Reported* Type Description Date Medical History H/o Kidney Stones - sees Dr. Phuc beck Surgical History Appendectomy 20 yrs ago Surgical History Right shoulder arthroscopy 5 yr s ago [facility] Other History general Narrative - Reported* Type Description Date Medical History H/o Kidney Stones - sees Dr. Phuc beck Surgical History Appendectomy 20 yrs ago Surgical History Right shoulder arthroscopy 5 yr s ago Surgical History ankle surgery [facility] Other Summary Purpose Family History Relationship Condition Age at Onset Recorded Date/T meggan Not Specified No pertinent family history Unknown Relationship Condition Age at Onset Recorded Date/T meggan Not Specified No pertinent family history Unknown father Unknown Dementia Unknown Advance Directives Advance Directive Response Recorded Date/ Time Advance Directives No January 17, 2017 11:02am Advance Directive Response Recorded Date/ Time Advance Directives No January 17, 2017 10:02am Hospital Course Note HNO ID: [id number] Author: Camille Martin (Pa) Service: Orthopaedic Surgery Author Type: Physician [employer] Make Up Helper Type: Discharge Summaries Filed: 04/29/2018 2:37 PM Note Text: DISCHARGE SUMMARY Patient Name: Sandra Boss : 1965 ADMISSION DATE: 04/27/2018 DISCHARGE DATE: 04/28/2018 Attending Physician: Dr. Suman Nguyen Primary Diagnosis: Osteoarthritis of left hip [M16.12] [...] r29.898 Pain in left ankle Chief Complaint Unknown Chief Complaint Admit Date Est care new patient May 02, 2024 11:10am Reason for Visit Admit Date GERD (gastroesophageal reflux disease) J anuary 2024 11:10am Screening for colon cancer May 02, 2024 11:10am Chief Complaint Admit Date Est care new patient May 02, 2024 11:10am z12.5 z13.6 May 06, 2024 1 0:28am on both legs June 20, 2024 9:0 5am Reason for Visit Admit Date GERD (gastroesophageal reflux disease) J anuary 2024 11:10am Screening for prostate cancer May 022024 11:10am Screening for colon cancer May 02, 2024 11:10am Screening for cardiovascular condition J anuary 2024 11:10am Rash and nonspecific skin eruption June 20, 2024 9:05am Reason for Referral Specialty Diagnoses / Procedures Referred By Contac camille Referred To Contact NEUROLOGICAL JUDAISM Diagnoses Parkinson's disease without dyskinesia, with fluctuating manifestations (HCC) RLS (restless legs syndrome) Procedures PROVIDER ORDERED FOLLOW UP OFFICE/OUTPATIENT [facility] 60 MINUTES Heriberto Carrera MD [address] [place] [address] [address] [place] [address] Referral ID Status Reason Start Date Expiration Date Visits Requested Visits Authorized [id number] Authorized PCP Requested Referral 04/21/2024 01/19/2025 1 1 Specialty Diagnoses / Procedures Referred By Edwardac t Referred To Contact Diagnoses Parkinson's disease without dyskinesia, with fluctuating manifestations (HCC) Neuropathy RLS (restless legs syndrome) Heriberto Carrera MD [address] [place] [address] Referral ID Status Reason Start Date Expiration Date V isits Requested Visits Authorized [id number] Authorized 01/22/2024 04/21/2025 1 1 Specialty Diagnoses / Procedures Referred By Contac t Referred To Contact Diagnoses Parkinson's disease without dyskinesia, with fluctuating manifestations (HCC) Procedures PROVIDER ORDERED FOLLOW UP OFFICE/OUTPATIENT NEW HIGH MDM 60 MINUTES Clair Amaya PA-C [address] [place] [address] Referral ID Status Reason Start Date Expiration Date Visits Requested Visits Authorized [id number] Authorized PCP Requested Referral 05/05/2024 02/02/2025 1 1 Specialty Diagnoses / Procedures Referred By Contac t Referred To Contact Psychology Diagnoses Parkinson's disease Procedures CONSULT TO PSYCHOLOGY OFFICE/OUTPATIENT NEW HIGH MDM 60-74 MINUTES Heriberto Carrera MD [address] [id number] Referral ID Status Reason Start Date Expiration Date Visits Requested Visits Authorized [id number] Pending Review PCP Requested Referral 12/31/2022 12/31/2023 1 1 Specialty Diagnoses / Procedures Referred By Contac t Referred To Contact Diagnoses Anxiety Parkinson's disease (HCC) Procedures PROVIDER ORDERED FOLLOW UP OFFICE/OUTPATIENT NEW HIGH MDM 60-74 MINUTES Heriberto Carrera MD [address] [place] [address] Referral ID Status Reason Start Date Expiration Date Visits Requested Visits Authorized [id number] Authorized PCP Requested Referral 07/16/2022 10/14/2022 1 1 Additional Source Comments (unrecognized sect ion and content) No Status Records FoundNo Status Records FoundNo Status Records FoundNo Status Records FoundNo Status Records FoundNo Status Records FoundNo Status Records FoundNo Status Records Found INFORMATION SOURCE (unrecogn ized section and content) DATE CREATED AUTHOR 05/12/2018 [facility] DATE CREATED AUTHOR AUTHOR'S ORGANIZ ATION 05/12/2018 [facility] DATE CREATED AUTHOR AUTHOR'S ORGANIZ ATION 11/05/2021 [facility] DATE CREATED AUTHOR AUTHOR'S ORGANIZ ATION 08/27/2022 [facility] DATE CREATED AUTHOR AUTHOR'S ORGANIZ ATION 04/18/2023 [facility] DATE CREATED AUTHOR AUTHOR[facility]S ORGANIZ ATION [facility] DATE CREATED AUTHOR AUTHOR'S ORGANIZ ATION 08/01/2023 [facility] DATE CREATED AUTHOR AUTHOR'S ORGANIZ ATION 07/19/2024 [facility] REASON FOR VISIT (unrecogniz ed section and content) Reason Comments Follow Up Specialty Diagnoses / Procedures Referred By Contac t Referred To Contact NEUROLOGICAL JUDAISM Diagnoses Parkinson's disease without dyskinesia, with fluctuating manifestations (HCC) RLS (restless legs syndrome) Procedures PROVIDER ORDERED FOLLOW UP OFFICE/OUTPATIENT NEW HIGH MDM 60 MINUTES Heriberto Carrera MD [address] [place] [address] Phone: tel: fax: [facility] [address] [place] [address] Phone: tel:[phone] Referral ID Status Reason Start Date Expiration Date V isits Requested Visits Authorized [id number] Closed PCP Requested Referral 04/21/2024 01/19/2025 1 1 Reason Comments External Referrals/resources Reason Comments New Patient Parkinson's Interest ed in DBS/HIFU Reason Onset Date Comments Refill Request 07/28/2022 Reason Comments Established Patient Reason Onset Date Comments Refill Request 07/15/2023 Reason Onset Date Comments Refill Request 09/27/2023 Reason Onset Date Comments Refill Request 11/01/2023 Reason Comments Refill Request Reason Onset Date Comments Refill Request 02/01/2024 Reason Comments Follow Up Reason Onset Date Comments Refill Request 02/25/2024 Reason Onset Date Comments Refill Request 03/09/2024 Reason Comments Established Patient Follow Up Specialty Diagnoses / Procedures Referred By Contac t Referred To Contact Diagnoses Parkinson's disease without dyskinesia, with fluctuating manifestations (HCC) Procedures PROVIDER ORDERED FOLLOW UP OFFICE/OUTPATIENT NEW HIGH MDM 60 MINUTES Clair Amaya PA-C [address] [place] [address] Referral ID Status Reason Start Date Expiration Date V isits Requested Visits Authorized [id number] Closed PCP Requested Referral 05/05/2024 02/02/2025 1 1 Reason Onset Date Comments Refill Request 05/08/2024 Reason Onset Date Comments Refill Request 07/14/2024 Reason Comments Release of Information Specialty Diagnoses / Procedures Referred By Contac t Referred To Contact NEUROLOGICAL JUDAISM Diagnoses Parkinson's disease without dyskinesia, with fluctuating manifestations (HCC) RLS (restless legs syndrome) Procedures PROVIDER ORDERED FOLLOW UP OFFICE/OUTPATIENT [facility] 60 MINUTES Heriberto Carrera MD [address] [place] [address] Phone: tel: fax: [facility] [address] [place] [address] Phone: tel:[phone] Referral ID Status Reason Start Date Expiration Date V isits Requested Visits Authorized [id number] Closed PCP Requested Referral 04/21/2024 01/19/2025 1 1 Care Teams (unrecognized sec tion and content) Team Status: Inactive Member Role Status Dates Anna Muñoz NP-C Primary Care Provider Active Vickie Hart DPM MS Attending Provider Active Team Status: Active Member Role Status Dates Anna Muñoz NP-C Primary Care Provider Active Reid Fair DPM Attending Provider Active Team Status: Inactive Member Role Status Dates Anna Muñoz NP-C Primary Care Provider Active Evelin Oliver PA-C Attending Provider Active Team Status: Inactive Member Role Status Dates Anna Muñoz [employer]-C Primary Care Provider Active James Rodriguez DO Attending Provider Active Team Status: Active Member Role Status Dates Anna Muñoz NP-C Primary Care Provider Active Team Status: Inactive Member Role Status Dates Anna Muñoz NP-C Primary Care Provider Active Reid Fair DPM Attending Provider Active Private Duty Rn Relationship Specialty Start Date End Date Rio Alanis [address] [phone] PCP - General Family Medicine 03/18/17 Princess Che PA-C [address] [id number] Referring Neurology 05/26/22 Private Duty Rn Relationship Specialty Start Date End Date Rio Alanis [address] [facility] [address] [place] [phone] PCP - General Family Medicine 03/18/17 Princess Che PA-C [address] [address] Referring Neurology 05/26/22 Private Duty Rn Relationship Specialty Start Date End Date Rio Alanis [address] [phone] PCP - General Family Medicine 03/18/17 Princess Che PA-C [address] [address] Referring Neurology 05/26/22 Private Duty Rn Relationship Specialty Start Date End Date Rio Alanis [address] [phone] PCP - General Family Medicine 03/18/17 Princess Che PA-C [address] [address] Referring Neurology 05/26/22 Team Status: Inactive Member Role Status Dates Vickie Hart DPM MS Attending Provider Active Start: July 23, 2023 End: July 23, 2023 Private Duty Rn Relationship Specialty Start Date End Date Rio Alanis [address] [phone] PCP - General Family Medicine 03/18/17 Princess Che PA-C [address] [address] Referring Neurology 05/26/22 Private Duty Rn Relationship Specialty Start Date End Date Rio Alanis [address] [facility] [address] [place] [phone] PCP - General Family Medicine 03/18/17 Princess Che PA-C [address] [address] Referring Neurology 05/26/22 Private Duty Rn Relationship Specialty Start Date End Date Rio Alanis [address] [phone] PCP - General Family Medicine 03/18/17 Princess Che PA-C [address] [address] Referring Neurology 05/26/22 Private Duty Rn Relationship Specialty Start Date End Date Rio Alanis [address] [facility] [address] [place] [phone] PCP - General Family Medicine 03/18/17 Princess Che PA-C [address] [address] Referring Neurology 05/26/22 Private Duty Rn Relationship Specialty Start Date End Date Rio Alanis [address] [phone] PCP - General Family Medicine 03/18/17 Princess Che PA-C [address] [place] [phone] Referring Neurology 05/26/22 Private Duty Rn Relationship Specialty Start Date End Date Rio Alanis [address] [facility] [address] [place] [phone] PCP - General Family Medicine 03/18/17 Princess Che PA-C [address] [place] [phone] Referring Neurology 05/26/22 Private Duty Rn Relationship Specialty Start Date End Date Rio Alanis [address] [phone] PCP - General Family Medicine 03/18/17 Princess Che PA-C [address] [place] [id number] Referring Neurology 05/26/22 Team Status: Active Member Role Status Dates Clare Brandt DO Primary Care Provider Active Team Status: Inactive Member Role Status Dates Clare Brandt DO Primary Care Provid er, Attending Provider Active Start: May 02, 2024 End: May 02, 2024 Private Duty Rn Relationship Specialty Start Date End Date Rio Alanis [address] [phone] PCP - General Family Medicine 03/18/17 Princess Che PA-C [address] [phone] Referring Neurology 05/26/22 Team Status: Inactive Member Role Status Dates Clare Brandt DO Primary Care Provid er, Attending Provider Active Start: May 06, 2024 End: May 06, 2024 Team Status: Inactive Member Role Status Dates Clare Brandt , Primary Care Provid er, Attending Provider Active Start: June 20, 2024 End: June 20, 2024 Private Duty Rn Relationship Specialty Start Date End Date Rio Alanis [address] [phone] PCP - General Family Medicine 03/18/17 Princess Che PA-C [address] [address] Referring Neurology 05/26/22 Private Duty Rn Relationship Specialty Start Date End Date iRo Alanis [address] [facility] [address] [place] [address] PCP - General Family Medicine 03/18/17 Princess Che PA-C [address] [address] Referring Neurology 05/26/22 Private Duty Rn Relationship Specialty Start Date End Date Rio Alanis [address] [phone] PCP - General Family Medicine 03/18/17 Princess Che PA-C [address] [address] Referring Neurology 05/26/22 Goals (unrecognized section and content) Goals may be documented in a n alternate section Source Comments (unrecognize d section and content) In the event this informatio n is protected by the Federal Confidentiality of Alcohol and Drug Abuse Patient Records regulations: The Federal rules restrict any use of the information to criminally investigate or prosecute any alcohol or drug abuse patient.[facility] the event this information is protected by the Federal Confidentiality of Alcohol and Drug Abuse Patient Records regulations: The Federal rules restrict any use of the information to criminally investigate or prosecute any alcohol or drug abuse patient.[facility] the event this information is protected by the Federal Confidentiality of Alcohol and Drug Abuse Patient Records regulations: The Federal rules restrict any use of the information to criminally investigate or prosecute any alcohol or drug abuse patient.[facility] Center[facility] the event this information is protected by the Federal Confidentiality of Alcohol and Drug Abuse Patient Records regulations: The Federal rules restrict any use of the information to criminally investigate or prosecute any alcohol or drug abuse patient.[facility] Center[facility] the event this information is protected by the Federal Confidentiality of Alcohol and Drug Abuse Patient Records regulations: The Federal rules restrict any use of the information to criminally investigate or prosecute any alcohol or drug abuse patient.[facility] Center[facility] the event this information is protected by the Federal Confidentiality of Alcohol and Drug Abuse Patient Records regulations: The Federal rules restrict any use of the information to criminally investigate or prosecute any alcohol or drug abuse patient.[facility] Center[facility] the event this information is protected by the Federal Confidentiality of Alcohol and Drug Abuse Patient Records regulations: The Federal rules restrict any use of the information to criminally investigate or prosecute any alcohol or drug abuse patient.[facility] Center[facility] the event this information is protected by the Federal Confidentiality of Alcohol and Drug Abuse Patient Records regulations: The Federal rules restrict any use of the information to criminally investigate or prosecute any alcohol or drug abuse patient.[facility] Center[facility] the event this information is protected by the Federal Confidentiality of Alcohol and Drug Abuse Patient Records regulations: The Federal rules restrict any use of the information to criminally investigate or prosecute any alcohol or drug abuse patient.[facility] CenterIn the event this information is protected by the Federal Confidentiality of Alcohol and Drug Abuse Patient Records regulations: The Federal rules restrict any use of the information to criminally investigate or prosecute any alcohol or drug abuse patient.[facility] CenterIn the event this information is protected by the Federal Confidentiality of Alcohol and Drug Abuse Patient Records regulations: The Federal rules restrict any use of the information to criminally investigate or prosecute any alcohol or drug abuse patient.[facility] Center[facility] the event this information is protected by the Federal Confidentiality of Alcohol and Drug Abuse Patient Records regulations: The Federal rules restrict any use of the information to criminally investigate or prosecute any alcohol or drug abuse patient.[facility] Center[facility] the event this information is protected by the Federal Confidentiality of Alcohol and Drug Abuse Patient Records regulations: The Federal rules restrict any use of the information to criminally investigate or prosecute any alcohol or drug abuse patient.[facility] CenterIn the event this information is protected by the Federal Confidentiality of Alcohol and Drug Abuse Patient Records regulations: The Federal rules restrict any use of the information to criminally investigate or prosecute any alcohol or drug abuse patient.[facility] CenterIn the event this information is protected by the Federal Confidentiality of Alcohol and Drug Abuse Patient Records regulations: The Federal rules restrict any use of the information to criminally investigate or prosecute any alcohol or drug abuse patient.[facility] CenterIn the event this information is protected by the Federal Confidentiality of Alcohol and Drug Abuse Patient Records regulations: The Federal rules restrict any use of the information to criminally investigate or prosecute any alcohol or drug abuse patient.[facility] CenterIn the event this information is protected by the Federal Confidentiality of Alcohol and Drug Abuse Patient Records regulations: The Federal rules restrict any use of the information to criminally investigate or prosecute any alcohol or drug abuse patient.[facility] Center[facility] the event this information is protected by the Federal Confidentiality of Alcohol and Drug Abuse Patient Records regulations: The Federal rules restrict any use of the information to criminally investigate or prosecute any alcohol or drug abuse patient.[facility] CenterIn the event this information is protected by the Federal Confidentiality of Alcohol and Drug Abuse Patient Records regulations: The Federal rules restrict any use of the information to criminally investigate or prosecute any alcohol or drug abuse patient.[facility] FOR RECORDS PERTAINING TO PATIENTS WHO ARE [...] BE BASED ON THE PRIMARY CLINICAL RECORDS. [facility] [employer] [facility]. provides no warranty or guarantee of the accuracy or completeness of information in this document.
--- NOTE | 2024-07-21 13:12 | PM.PRESUREVA ---
History of Present Illness History of Present Illness Chief complaint: LEFT HALLUX VALGUS Narrative: Patient presents for presurgical testing. Please see HPI from Dr. Ze Castillo dated July 12, 2024. Review of Systems ROS Narrative Please see ROS from Dr. Chiang dated July 12, 2024. [facility] Medical History (Updated 07/21/24 @ 13:05 by Naomi Gee NP) Hearing loss ?H91.90 - Unspecified hearing loss, unspecified ear (ICD-10) Heartburn ?R12 - Heartburn (ICD-10) Hallux valgus of left foot ?M20.12 - Hallux valgus (acquired), left foot (ICD-10) Neck pain ?M54.2 - Cervicalgia (ICD-10) Arthritis ?M19.90 - Unspecified osteoarthritis, unspecified site (ICD-10) Insomnia ?G47.00 - Insomnia, unspecified (ICD-10) Depression ?F32.A - Depression, unspecified (ICD-10) Anxiety ?F41.9 - Anxiety disorder, unspecified (ICD-10) Kidney stones ?N20.0 - Calculus of kidney (ICD-10) Hammertoe ?M20.40 - Other hammer toe(s) (acquired), unspecified foot (ICD-10) Tremor ?R25.1 - Tremor, unspecified (ICD-10) Parkinson disease ?G20 - Parkinson's disease (ICD-10) Acquired hallux malleus ?M20.30 - Hallux varus (acquired), unspecified foot (ICD-10) Surgical History (Updated 07/21/24 @ 12:35 by Naomi Gee NP) H/O foot surgery (07/23/23) ?Z98.890 - Other specified postprocedural states (ICD-10) H/O foot surgery (10/27/22) ?Z98.890 - Other specified postprocedural states (ICD-10) History of appendectomy ?Z90.49 - Acquired absence of other specified parts of digestive tract (ICD-10) H/O arthroscopy of shoulder ?Z98.890 - Other specified postprocedural states (ICD-10) History of total hip replacement (~2017) ?Z96.649 - Presence of unspecified artificial hip joint (ICD-10) History of total hip replacement (~2018) ?Z96.649 - Presence of unspecified artificial hip joint (ICD-10) Status post ORIF of fracture of ankle (~2020) ?Z98.890 - Other specified postprocedural states (ICD-10) ?Z87.81 - Personal history of (healed) traumatic fracture (ICD-10) History of ankle surgery (02/18/21) ?Z98.890 - Other specified postprocedural states (ICD-10) Status post peripherally inserted central catheter (PICC) central line placement ?Z95.828 - Presence of other vascular implants and grafts (ICD-10) H/O foot surgery (06/17/21) ?Z98.890 - Other specified postprocedural states (ICD-10) H/O foot surgery (06/20/21) ?Z98.890 - Other specified postprocedural states (ICD-10) H/O foot surgery (~07/23/21) ?Z98.890 - Other specified postprocedural states (ICD-10) H/O foot surgery (06/19/22) ?Z98.890 - Other specified postprocedural states (ICD-10) Family History (Updated 10/21/22 @ 09:19 by Naomi Gee NP) Other Dementia Social History (Updated 07/21/24 @ 12:46 by Naomi Gee NP) Within the past year, how often did you have a drink containing alcohol: never Score interpretation: A score less than 4 is consistent with normal alcohol consumption. Smoking status: Former smoker Second hand tobacco smoke exposure: No Non-prescribed substance use: denies use Previous occupational history: disability Highest level of school completed/degree received: high school graduate Meds Home Medications and Allergies Home Medications ?Medication ?Instructions ?Recorded ?Confirmed ?Type carbidopa 25 mg-levodopa 100 mg 1 tab PO .5 times a day 10/21/22 07/21/24 History tablet multivitamin 1 tab PO DAILY 10/21/22 07/21/24 History pregabalin 50 mg capsule 50 mg PO Q12H 10/21/22 07/21/24 History mirtazapine 15 mg tablet 15 mg PO .QHS 06/23/23 07/21/24 History acetaminophen 500 mg tablet (Pain 500 mg PO Q6H PRN pain 07/21/24 07/21/24 History Relief (acetaminophen)) amantadine HCl 100 mg capsule 100 mg PO BID 07/21/24 07/21/24 History diphenhydramine 25 1 tab PO QPM 07/21/24 07/21/24 History mg-acetaminophen 500 mg tablet (Pain Relief PM) famotidine 40 mg tablet 40 mg PO DAILY 07/21/24 07/21/24 History rasagiline 0.5 mg tablet 0.5 mg PO DAILY 07/21/24 07/21/24 History Allergies Allergy/AdvReac Type Severity Reaction Status Date / Time vancomycin Allergy Hives Verified 07/21/24 12:42 Exam Narrative Exam Narrative: Constitutional: Awake, alert, comfortable, well-appearing, nontoxic, interactive, vital signs as charted Head: Normocephalic, atraumatic Neck: Supple, normal appearance, normal range of motion, no meningeal signs, no lymphadenopathy Respiratory: No respiratory distress, breath sounds clear Cardiovascular: Regular rate and rhythm, strong and regular heart tones Neuro: Severe cogwheel rigidity upper and lower extremities Psychiatric: Oriented ?3, normal affect Assessment and Plan Assessment and Plan (1) Hallux valgus of left foot: Plan Left foot hallux amputation at the level of the metatarsal phalangeal joint scheduled with Dr. Chiang July 26, 2024.
== END 2024-07-21 12:23 | disposition home or self-care (01) ==
LOC: PST 12:25
PROVIDERS: PCP Family Medicine; Visit Provider Podiatrist Foot & Ankle Surgery
DX: Z01.810 Encounter for preprocedural cardiovascular examination (principal); Z01.818 Encounter for other preprocedural examination; M20.12 Hallux valgus (acquired), left foot
CPT/HCPCS: 93005; G0463

== ENCOUNTER 2024-07-26 08:11 | Day surgery (SDC) | payer OTHER, SELFPAY ==
[2024-07-21 12:58] VITALS: BP 119/83; PULSE 70; TEMP 36.2; O2SAT 98; BMI 24.3
[2024-07-26] VITALS (12 sets, daily range): BP systolic 96–154; BP diastolic 72–101; PULSE 63–83; TEMP 36.1–36.8; O2SAT 75–99; BMI 23.0
--- OUTSIDE RECORDS SUMMARY | 2024-07-26 08:17 | XMS_ITS | CCD ---
Author Organization [facility] Care Team Providers Care Generator Repairer Name Role Phone SUMAN NGUYEN JR Admitting Unavailable SUMAN NGUYEN JR Attending Unavailable SUMAN NGUYEN JR Referring Unavailable KATE MUELLER (NANCIE) Referring Unava ilable SUMAN NGUYEN JR Admitting Unavailable SUMAN NGUYEN JR Attending Unavailable Michael Shah Unavailable Andi Eason Unavailable JALYN Muñoz Primary Care Provider DO James Rodriguez Attending Provider [phone] EDE Fair Attending Provider NANCIE Oliver Attending Provider EDE Hart Attending Provider JALYN Muñoz Primary Care Provider [phone] Rio Alanis Primary Care Provider [phone] Princess Che PA-C Unavailable [phone] ANNA MUÑOZ Primary Care Unavailable SHIRLEY CASTILLO V Consulting Unavailable KAR RAPHAEL Admitting Unavailable KAR RAPHAEL Attending Unavailable KAR RAPHAEL Consulting Unavailable DR KENYATTA WALTON Admitting Unavailable ANGELITA Nick, DR YOU Attending Unavailable ANNA MUÑOZ Primary Care Unavailable DR KENYATTA WALTON Consulting Unavailable Saurav Kerns Consulting Unavailable ANDREW, DR GINNA Hart Consulting Unavailable PAN LONG Consulting Unavailable DIAB ., AFTAB Consulting Unavailable ANNA MUÑOZ Primary Care Unavailable VICKIE HART Attending Unavailable VICKIE HART Consulting Unavailable HIGHLANDER, PETER D Admitting Unavailable SEB GRAVES Consulting Unavailable WESTSHIRLEY V Consulting Unavailable [facility] Primary Care Unavailable KAR RAPHAEL Admitting Unavailable IJEOMA, KAR Attending Unavailable IJEOMAKAR Consulting Unavailable WANDA, [facility] Primary Care Unavailable HIGHLANDER, PETER D Admitting Unavailable ZiSaurav salazar Consulting Unavailable HIGHLANDER, PETER D Attending Unavailable HIGHLANDER, PETER D Consulting Unavailable Saurav Kerns Consulting Unavailable HIGHLANDER, PETER D Attending Unavailable HIGHLANDER, PETER D Admitting Unavailable HIGHLANDER, PETER D Consulting Unavailable WANDA, [facility] Primary Care Unavailable HIGHLANDER, PETER D Consulting Unavailable HIGHLANDER, PETER D Attending Unavailable HIGHLANDER, PETER D Admitting Unavailable KARLA MANZANO Consulting Unavailable ADY ., PAN MATTHEW Consulting Unavailable CANDICE LIEBERMAN Consulting Unavailable CHE II, CLARE Consulting Unavailable OTT ., DR FARRUKH Kimble Admitting Unavailable [facility] Primary Care Unavailable [facility] Consulting Unavailable NAMRATA ., DR FARRUKH Kimble Attending Unavailable OTT ., DR FARRUKH Kimble Consulting Unavailable HIGHLANDER, PETER D Admitting Unavailable HIGHLANDER, PETER D Attending Unavailable Saurav Kerns Consulting Unavailable HIGHLANDER, PETER D Admitting Unavailable HIGHLANDER, PETER D Attending Unavailable HIGHLANDER, PETER D Consulting Unavailable HIGHLANDER, PETER D Attending Unavailable HIGHLANDER, PETER D Admitting Unavailable HIGHLANDER, PETER D Admitting Unavailable HIGHLANDER, PETER D Attending Unavailable Saurav Kerns Consulting Unavailable HIGHLANDER, PETER D Admitting Unavailable HIGHLANDER, PETER D Attending Unavailable HIGHLANDER, PETER D Consulting Unavailable HIGHLANDER, PETER D Admitting Unavailable HIGHLANDER, PETER D Attending Unavailable HIGHLANDER, PETER D Admitting Unavailable HIGHLANDER, PETER D Attending Unavailable Saurav Kerns Consulting Unavailable WANDA, [facility] Primary Care Unavailable HIGHLANDER, PETER D Attending Unavailable HIGHLANDER, PETER D Admitting Unavailable HIGHLANDER, PETER D Consulting Unavailable OTT ., DR FARRUKH Kimble Admitting Unavailable [facility] Primary Care Unavailable OTT ., DR FARRUKH Kimble Attending Unavailable OTT ., DR FARRUKH Kimble Consulting Unavailable Saurav Kerns Consulting Unavailable WANDA, [facility] Primary Care Unavailable HIGHLANDER, PETER D Attending Unavailable HIGHLANDER, PETER D Admitting Unavailable HIGHLANDER, PETER D Consulting Unavailable SHIRLEY CASTILLO V Consulting Unavailable HIGHLANDER, VICKIE D Attending Unavailable HIGHLANDER, PETER D Admitting Unavailable HIGHLANDER, VICKIE D Consulting Unavailable Saurav Kerns Consulting Unavailable HIGHLANDER, VICKIE D Attending Unavailable VICKIE HART Admitting Unavailable VICKIE HART Consulting Unavailable NAMRATA ., DR FARRUKH Kimble Consulting Unavailable ANNA MUÑOZ Primary Care Unavailable NAMRATA ., DR FARRUKH Kimble Admitting Unavailable VICKIE HART Referring Unavailable NAMRATA ., DR FARRUKH Kimble Attending Unavailable VICKIE HART Attending Unavailable VICKIE HART Admitting Unavailable WANDA, ANNA Kimble Primary Care Unavailable LIOR RAMIREZ Attending Unavailable SUMAN NGUYEN Referring Unavailable ANNA MUÑOZ Primary Care Unavailable Андрей, EDE Garibay Attending Provider [phone] Vickie Hart Attending Unavailable Vickie Hart Admitting Unavailable Rio Alanis Primary Care Provider [phone] Clrae Brandt DO Primary Care Provider Clare Brandt DO Attending Provider TITA MARIN Attending Unavailable DEANDRE, UMAR A Referring Unavailable RIO ALANIS Primary Care Unavailab CLAIR Rizvi Referring Unavailable RIO ALANIS Primary Care Unavailab le EPIFANIO CARRERAAR A Attending Unavailable CLAIR AMAYA Referring Unavailable RIO ALANIS Primary Care Unavailab CLAIR Rizvi Attending Unavailable SELF Referring Unavailable RIO ALANIS Primary Care Unavailab le Allergies Allergy Classification Reported Allergen(s) Allergy Type Date of Onset Reaction(s) Facility Glycopeptides (antibiotic) (1 source) Vancomycin Drug Allergy 2 Other: See Comments [facility] (20 sources) Vancomycin; Translations: [VANCOMYCIN] Drug Allergy 2 Other: See Comments [facility] (1 source) Vancomycin Drug Allergy 2 [facility] Repository Medications Current Medications Medication Drug [...] Tablet Discontinued 1000 MG PO Q8H 180 October 23, 2020 12:00am May 02, 2024 [...] and continue on that dose 60 capsule 5 04/21/2024 10/18/2024 Active apixaban 2.5 mg oral [...] entacapone 200 mg oral tablet (1 source) Izicxspw-W-Mllkpvcdu nsferase Inhibitor take 1 tablet by mouth [...] May 02, 2024 1:00am Start: 10-08-2020 End: 10-23-2020 take 1 tablet by mouth three times [...] 1 tablet by mouth once Methylprednisolone (Medrol (Juanito)) 4 mg tablets,dose pack Active 0 PO [...] six hours as needed for pain Hydrocodone-Acetaminophen ([place]) 5-325 mg tablet Discontinued 1 TAB PO EVERY 4-6 HOURS as needed for pain January 17, 2017 April 13, 2018 6:05pm take 1 tablet by santa th every six hours as needed [place] 5-325 MG 1 tablet as needed Orally [...] on above: TAKE 1 CAPSULE BY [facility] TWICE A DAY cyclobenzaprine hydrochloride 10 [...] sources) Low Molecular Weight Heparin Start: End: 1 Enoxaparin (Lovenox) 40 mg/0.4 mL syringe Discontinued 40 MG SUBCUT Daily October 18, 2020 7:32am October 23, 2020 3:31pm naproxen 500 mg oral tablet (11 sources) Nonsteroidal Anti-inflammatory Drug Start: 7 End: 9 take 1 tablet by mouth every twelve [...] days Jul, Active take 1 tablet by snata th every twenty-four hours Bactrim DS 800-160 [...] Phys. 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] Onset: 07-23-2022 Episodic Other aftercare (1 source) Other director long term care (current) drug therapy; Translations: [OTH GROUP HOME CURRENT DRUG THERAPY] Onset: 07-23-2022 Episodic Other [...] Other hereditary and degenerative nervous system conditions (2 sources) Restless legs syndrome; Translations: [RLS (restless legs syndrome)] Onset: 04-21-2024 Chronic Other nervous system disorders [...] in right hip] Onset: 03-27-2023 Episodic Other skin disorders (1 source) Rash and other nonspecific skin eruption; Translations: [Rash and other nonspecific skin eruption] 06-20-2024 Episodic Parkinson`s disease (13 sources) Parkinson's disease; Translations: [Parkinson's disease] Onset: 07-23-2022 Chronic Parkinson`s disease (1 source) Parkinson`s disease; Translations: [Parkinson's disease without dyskinesia, with fluctuating manifestations (HCC)] Onset: 07-20-2024 Poisoning by other medications and drugs (6 [...] Onset: 02-28-2022 Episodic Other aftercare (1 source) [facility] (current) use of antibiotics Onset: 10-24-2021 Resolved: [...] right hip] Onset: 02-04-2017 02-04-2017 Episodic Other screening for suspected conditions (not mental disorders or infectious disease) (6 sources) Screening due; Translations: [Encounter for screening, unspecified] Onset: 04-21-2024 02-25-2024 Episodic Residual codes; unclassified (1 source) Other specified postprocedural states; Translations: [Other specified postprocedural states Z98.890] Onset: 01-02-2021 Resolved: 01-02-2021 Episodic Sprains and strains (20 sources) Strain of muscle, fascia and tendon of right hip, initial encounter; Translations: [Low back strain] Onset: 06-29-2017 06-29-2017 Episodic Results Test Name Value Interpretation Reference Range [facility] SANDRA BOSS ([id number]) 1965 M Date Time Provider Department 07/18/24 HERIBERTO CARRERA NREUS2 During your visit today, we recorded the following information about you: Sinan Briana Jocelyn 07/18/2024 12:02 PM Signed Pt is having surgery coming up and they need the last OV note faxed over. Faxed to [facility] at [phone]. [facility] [place]/20/2024 11:39 AM Signed OV note faxed again to [facility] at [phone] since they were having fax issues. [facility] [place] 07/21/2024 2:02 PM Addendum As requested, 04/21/24 OV note faxed to [phone]/[facility] since Dasha's fax having issues. Allergies As of Date: 07/18/2024 Noted Allergy Reaction VANCOMYCIN 06/16/2021 14 - Other: See Comments Date Reviewed: 04/21/2024 Reviewed by: Mahad Izquierdo CT - Fully Assessed Reason for Visit: Release of Information [Other] Prescriptions as of 07/21/2024 - pregabalin (LYRICA) 75 mg capsule Take 1 capsule by mouth three times a day for 180 days. - rasagiline (AZILECT) 0.5 mg tab Take 1 tablet by mouth once daily. - carbidopa-levodopa (SINEMET 25-100) 25-100 mg per tablet TAKE 1 AND 1/2 (ONE AND ONE-HALF) TABLETS BY MOUTH 5 TIMES A DAY (6:30 AM, 9:30 AM, 12:30 PM, 3:30 PM AND 6:30 PM) - carbidopa-levodopa CR (SINEMET CR) 25-100 mg per tablet Take 1 tablet by mouth at bedtime - amantadine HCl (SYMMETREL) 100 mg capsule [...] 500 mg cap Take by mouth. - IBUPROFEN ORAL Take by mouth. - [...] Status:Closed by JOCELYN FLOWER on 07/18/24 Normal [facility] Cholesterol [Mass/volume] in Serum or PlasmaOrdered By: Clare Brandt on 05-06-2024 Cholesterol [Mass/Vol] Cholesterol [Mass/volume] in Serum or Plasma 140-200 [facility] Comment on above: Chol less than 200 m g/dl low riskChol 201-239 mg/dl borderline riskChol 240 mg/dl and greater high risk Cholesterol in HDL [Mass/vol ume] in Serum or PlasmaOrdered By: Clare Brandt on 05-06-2024 Cholesterol in HDL [Mass/Vol] Serum or plasma high density lipoprotein (HDL) cholesterol measurement 23-92 [facility] Comment on above: HDL CHOL ATP-III CLA SSIFICATION Cardiovascular RiskHDL > or equal to 60 mg/dL LOWHDL < 40 mg/dL HIGH Cholesterol in LDL Calc [Mas s/Vol]Ordered By: Clare Brandt on 05-06-2024 Cholesterol in LDL [Mass/Vol] Cholesterol in LDL [Mass/volume] in Serum or Plasma by calculation 0-100 [facility] Comment on above: LDL ATP III CLASSIFI CATIONLDL less than 100 mg/dL OptimalLDL 100-129 mg/dL Near or above optimalLDL 130-159 mg/dL Borderline highLDL 160-189 mg/dL HighLDL greater than 189 mg/dL Very high Cholesterol in VLDL Calc [Ma ss/Vol]Ordered By: Clare Brandt on 05-06-2024 Cholesterol in VLDL [Mass/Vol] Cholesterol in VLDL [Mass/volume] in Serum or Plasma by calculation [facility] Prostate specific Ag [Mass/v olume] in Serum or PlasmaOrdered By: Clare Brandt on 05-06-2024 Prostate specific Ag [Mass/Vol] Prostate specific Ag [Mass/volume] in Serum or Plasma 0.000-4.000 [facility] Comment on above: Serial tumor marker results determined by assays using different manufacturers or methods may not be comparable.[facility] fast [employer] worker and method:[employer] DXI, CHEMILUMINESCENT IMMUNOASSAY. Serum or plasma total choles terol/high density lipoprotein (HDL) cholesterol mass ratOrdered By: Clare Brandt on 05-06-2024 Cholesterol.total/Cho lesterol in HDL [Mass ratio] Serum or plasma total cholesterol/high density lipoprotein (HDL) cholesterol mass rat <5.0 [facility] Triglyceride [Mass/volume] i n Serum or PlasmaOrdered By: Clare Brandt on 05-06-2024 Triglyceride [Mass/Vol] Triglyceride [Mass/volume] in Serum or Plasma 0-149 [facility] Comment on above: TRIG ATP III CLASSIF ICATIONTRIG less than 150 mg/dL NormalTRIG 150-199 mg/dL Borderline highTRIG 200-500 mg/dL High TRIG greater than 500 mg/dL Very highStandard traceable to the Center for Disease Conrtrol and Prevention (CDC) test method. CBC panel Auto (Bld)on 04-21 Erythrocyte distribution width (RBC) [Ratio] 14.2 % Normal 11.5-15.0 [facility] Comment on above: Order Comment: Speci men Type: BLOOD SPECIMEN Ordering Facility: [facility] Address: [address] [place] [address] Performed By: #### 5 8410-2 #### [facility] CLIA [id number] [address] [place] [address] [place] Hematocrit (Bld) [Volume fraction] 43.9 % Normal 39.0-51.0 [facility] Comment on above: Order Comment: Speci men Type: BLOOD SPECIMEN Ordering Facility: [facility] Address: [address] [place] [address] Performed By: #### 5 8410-2 #### [facility] CLIA [id number] [address] [place] [address] [place] Hemoglobin (Bld) [Mass/Vol] 14.0 g/dL Normal 13.0-17.0 [facility] Comment on above: Order Comment: Speci men Type: BLOOD SPECIMEN Ordering Facility: [facility] Address: [address] [place] [address] Performed By: #### 5 8410-2 #### [facility] CLIA [id number] [address] [place] [address] [place] MCH (RBC) [Entitic mass] 29.4 pg Normal 26.0-34.0 [facility] Comment on above: Order Comment: Speci men Type: BLOOD SPECIMEN Ordering Facility: [facility] Address: [address] [place] [address] Performed By: #### 5 8410-2 #### [facility] CLIA [id number] [address] [place] [address] [place] MCHC (RBC) [Mass/Vol] 31.9 g/dL Normal 30.5-36.0 [facility] Comment on above: Order Comment: Speci men Type: BLOOD SPECIMEN Ordering Facility: [facility] Address: [address] [place] [address] Performed By: #### 5 8410-2 #### [facility] CLIA [id number] [address] [place] [address] [place] MCV (RBC) [Entitic vol] 92.2 fL Normal 80.0-100.0 [facility] Comment on above: Order Comment: Speci men Type: BLOOD SPECIMEN Ordering Facility: [facility] Address: [address] [place] [address] Performed By: #### 5 8410-2 #### [facility] CLIA [id number] [address] [id number] [address] [place] Nucleated RBC (Bld) [#/Vol] 10*3/uL Normal <0.01 [facility] Comment on above: Order Comment: Speci men Type: BLOOD SPECIMEN Ordering Facility: [facility] Address: [address] [place] [address] Performed By: #### 5 8410-2 #### [facility] CLIA [id number] [address] [place] [address] [place] Platelet mean volume (Bld) [Entitic vol] 11.8 fL Normal 9.0-12.7 [facility] Comment on above: Order Comment: Speci men Type: BLOOD SPECIMEN Ordering Facility: [facility] Address: [address] [place] [address] Performed By: #### 5 8410-2 #### [facility] CLIA [id number] [address] [place] [address] [place] Platelets (Bld) [#/Vol] 217 10*3/uL Normal 150-400 [facility] Comment on above: Order Comment: Speci men Type: BLOOD SPECIMEN Ordering Facility: [facility] Address: [address] [place] [address] Performed By: #### 5 8410-2 #### [facility] CLIA [id number] [address] [place] [address] [place] RBC (Bld) [#/Vol] 4.76 10*6/uL Normal 4.20-6.00 [facility] Comment on above: Order Comment: Speci men Type: BLOOD SPECIMEN Ordering Facility: [facility] Address: [address] [place] [address] Performed By: #### 5 8410-2 #### [facility] CLIA [id number] [address] [place] [address] [place] WBC (Bld) [#/Vol] 8.89 10*3/uL Normal 3.70-11.00 [facility] Comment on above: Order Comment: Speci men Type: BLOOD SPECIMEN Ordering Facility: [facility] Address: [address] [place] [address] Performed By: #### 5 8410-2 #### [facility] CLIA [id number] [address] [place] [id number] [facility] CNOVon 04-21-2024 CNOV Office Visit (NREUS2 ) GERASANDRA Garibay ([id number]) 1965 M Date Time Provider Department 04/21/24 11:00 AM HERIBERTO CARRERA NREUS2 During your visit today, we recorded the following information about you: Height 1.829 m Heriberto Carrera MD 04/21/2024 4:09 PM Signed [facility] - FOLLOW UP EVALUATION Rio Alanis MD [facility] [address] [phone] Dear Rio Alanis MD: I had the [...] Row [facility] from 02/03/2024 in [facility] from 11/03/2022 in [facility] T Score 39.8 39.8 [...] good nutr (more content not included)... Normal [facility] CREATININE BLDon 04-21-2024 Creatinine [Mass/Vol] 0.84 mg/dL Normal 0.73-1.22 [facility] Comment on above: Order Comment: Speci men Type: BLOOD SPECIMEN Ordering Facility: [facility] Address: [address] [place] [address] Performed By: #### 5 0190-8, 03339-5, CRET1, 2276-4 #### [facility] CLIA [id number] [address] [place] [address] [place] [address] [place] Creatinine and Glomerular filtration rate.predicted panel (S/P/Bld) 101 mL/min/1.73m??? Normal >=60 [facility] Comment on above: Order Comment: Bam chamberlain Type: BLOOD SPECIMEN Ordering Facility: [facility] Address: [address] [place] [address] Result Comment: Megan mated Glomerular Filtration Rate [...] actual GFR. Performed By: #### 5 0190-8, 07419-0, CRET1, 2275-4 #### [facility] CLIA [id number] [address] [place] [address] [place] FERRITINon 04-21-2024 Ferritin [Mass/Vol] 109.0 ng/mL 30.3 - 5 65.7 ng/mL [facility] Ferritin SerPl-mCncon 2024 Ferritin [Mass/Vol] 109.0 ng/mL Normal 30.3-565.7 [facility] Comment on above: Order Comment: Bam chamberlain Type: BLOOD SPECIMEN Ordering Facility: [facility] Address: [address] [place] [address] Performed By: #### 5 0190-8, 11135-6, CRET1, 2275-4 #### [facility] CLIA [id number] [address] [place] [address] [place] Ferritin [Mass/Vol]on 2024 Interpretation and review of laboratory results Normal [facility] Hepatic function 2000 panelo n 04-21-2024 Albumin [Mass/Vol] 4.2 g/dL Normal 3.9-4.9 [facility] Comment on above: Order Comment: Bam chamberlain Type: BLOOD SPECIMEN Ordering Facility: [facility] Address: [address] [place] [address] Performed By: #### 5 0190-8, 00612-9, CRET1, 2275-4 #### [facility] CLIA [id number] [address] [place] [address] [place] ALP [Catalytic activity/Vol] 114 U/L High 38-113 [facility] Comment on above: Order Comment: Speci men Type: BLOOD SPECIMEN Ordering Facility: [facility] Address: [address] [place] [address] Performed By: #### 5 0190-8, 15770-8, CRET1, 2275-4 #### [facility] CLIA [id number] [address] [place] [address] [place] ALT [Catalytic activity/Vol] 8 U/L Low 10-54 [facility] Comment on above: Order Comment: Speci men Type: BLOOD SPECIMEN Ordering Facility: [facility] Address: [address] [place] [address] Performed By: #### 5 0190-8, 34843-8, CRET1, 2275-4 #### [facility] CLIA [id number] [address] [place] [address] [place] AST [Catalytic activity/Vol] 19 U/L Normal 14-40 [facility] Comment on above: Order Comment: Speci men Type: BLOOD SPECIMEN Ordering Facility: [facility] Address: [address] [place] [address] Performed By: #### 5 0190-8, 48006-3, CRET1, 2275- #### [facility] CLIA [id number] [address] [place] [address] [place] Bilirubin [Mass/Vol] 0.3 mg/dL Normal 0.2-1.3 [facility] Comment on above: Order Comment: Speci men Type: BLOOD SPECIMEN Ordering Facility: [facility] Address: [address] [place] [address] Performed By: #### 5 0190-8, 40900-2, CRET1, 2275-4 #### [facility] CLIA [id number] [address] [place] [address] [place] Bilirubin.conjugated [Mass/Vol] 0.1 mg/dL Normal <0.3 [facility] Comment on above: Order Comment: Speci men Type: BLOOD SPECIMEN Ordering Facility: [facility] Address: [address] [place] [address] Performed By: #### 5 0190-8, 25396-3, DEL, 2275-4 #### [facility] CLIA [id number] [address] [place] [address] [place] Protein [Mass/Vol] 6.9 g/dL Normal 6.3-8.0 [facility] Comment on above: Order Comment: Speci men Type: BLOOD SPECIMEN Ordering Facility: [facility] Address: [address] [place] [address] Performed By: #### 5 0190-8, 81080-5, DEL, 2275-07 #### [facility] CLIA [id number] [address] [place] [address] [place] Iron and Iron binding capaci ty panelon 04-21-2024 Interpretation and review of laboratory results Normal [facility] Iron [Mass/Vol] 68 ug/dL 41 - 186 ug/dL [facility] Iron binding capacity [Mass/Vol] 334 ug/dL 232 - 386 ug/dL [facility] Iron/TIBC [Molar ratio] 20.4 % 15.0 - 57.0 % [facility] Iron [Mass/Vol] 68 ug/dL Normal 41-186 [facility] Comment on above: Order Comment: Speci men Type: BLOOD SPECIMEN Ordering Facility: [facility] Address: [address] [place] [address] Performed By: #### 5 0190-8, 49900-9, DEL, 2275-07 #### [facility] CLIA [id number] [address] [place] [address] [place] Iron binding capacity [Mass/Vol] 334 ug/dL Normal 232-386 [facility] Comment on above: Order Comment: Speci men Type: BLOOD SPECIMEN Ordering Facility: [facility] Address: [address] [place] [address] Performed By: #### 5 0190-8, 60912-4, CRET1, 2275-4 #### [facility] CLIA [id number] [address] [place] [address] [place] Iron/TIBC [Molar ratio] 20.4 % Normal 15.0-57.0 [facility] Comment on above: Order Comment: Speci men Type: BLOOD SPECIMEN Ordering Facility: [facility] Address: [address] [place] [address] Performed By: #### 5 0190-8, 46930-7, CRET1, [id number] #### [facility] CLIA [id number] [address] [place] [address] STATES OF LENNIE Bolivar 07[birth year]23[birth year]2023 L Specimen: [id number] Received: 07/27/23 Status: [facility] Re Num: [id number] Spec Type: Surgical Subm Dr: Vickie Hart DPM, MS Tissues: A DIGIT AMPUTATION (LEFT 2ND TOE) B DIGIT AMPUTATION (LEFT 3RD TOE) Procedures: HE/7, Gross/Micro L4/2, Decalcification/2 Age/ Patient Sex Location Account Attending Physician Sandra Boss 57/M LABELL [id number] Vickie Hart DPM, MS SPEC NUM: [id number] RECD: 07/27/23 STATUS: [facility] RE NUM: [id number] MEGHNA: 07/23/[address]: Vickie Hart DPM, MS ENTERED: 07/27/23 [facility] DR: Brandan Hodge SPEC TYPE: Surgical DEPT: [...] Gross photos are taken. The -------- Specimen: [id number] Received: 07/27/23 Status: [facility] Rubio Num: [id number] Spec Type: Surgical Subm Dr: Vickie Hart,EDE, MS Tissues: A DIGIT AMPUTATION (LEFT 2ND TOE) B DIGIT AMPUTATION (LEFT 3RD TOE) Procedures: HE/7, Gross/Micro L4/2, Decalcification/2 -------- Patient: Sandra Boss [id number] (Continued) -------- Specimen: [id number] Received: 07/27/23 (Continued) Gross Description (Continued) Signed (signature on file) Oli Roque MD 07/30/23 1650 -------- Specimen: [id number] Received: 07/27/23 Status: [facility] Ramiro Num: [id number] Spec Type: Surgical Subm Dr: Vickie Hart,EDE, MS Tissues: A DIGIT AMPUTATION (LEFT 2ND TOE) B DIGIT AMPUTATION (LEFT 3RD TOE) Procedures: RENÉE/Michael, Gross/Micro L4/2, Decalcification/2 -------- Patient: Sandra Boss [id number] (Continued) -------- Specimen: [id number] Received: 07/27/23 (Continued) Gross Description (Continued) specimen [...] no identifiable lesions. Gross photos are taken. Parking Lot Manager sections are submitted as follows: B1:Skin and [...] CP (more content not included)... Normal [facility] C-Reactive Proteinon 024 CRP [Mass/Vol] mg/L Normal 0.0-5.0 [facility] Comment on above: Performed By: #### C RP #### [facility] [address] [place] [id number] [phone] Sedimentation Rateon 024 Sedimentation Rate 2 mm Normal 0-20 [facility] Comment on above: Result Comment: ESR Units mm/Hr Performed By: #### E SR #### [facility] [address] [place] [id number] XR HIP 2-3 VW W PELVIS RIGHT [...] Suman Nguyen MD 04/24/23 Final result Normal [facility] CBC With Platelet and Differ entialon 03-27-2023 Anisocytosis Ql (Bld) 1+ Normal [facility] Comment on above: Performed By: #### C BCWD #### [facility] [address] [place] [address] Atypical Lymphs 4 % Normal [facility] Comment on above: Performed By: #### C BCWD #### [facility] [address] [place] [address] Basophils (Bld) [#/Vol] 0.1 10*3/uL Normal 0.0-0.2 [facility] Comment on above: Performed By: #### C BCWD #### [facility] [address] [place] [address] Basophils/100 WBC (Bld) 1.0 % Normal [facility] Comment on above: Performed By: #### C BCWD #### [facility] [address] [place] [address] Eosinophils (Bld) [#/Vol] 0.1 10*3/uL Normal 0.0-0.7 [facility] Comment on above: Performed By: #### C BCWD #### [facility] [address] [place] [address] Eosinophils/100 WBC (Bld) 1.0 % Normal [facility] Comment on above: Performed By: #### C BCWD #### [facility] [address] [place] [address] Lymphocytes (Bld) [#/Vol] 1.4 10*3/uL Normal 1.0-4.8 [facility] Comment on above: Performed By: #### C BCWD #### [facility] [address] [place] [address] Lymphocytes/100 WBC (Bld) 8.0 % Normal [facility] Comment on above: Performed By: #### C BCWD #### [facility] [address] [place] [address] Monocytes (Bld) [#/Vol] 0.4 10*3/uL Normal 0.2-0.8 [facility] Comment on above: Performed By: #### C BCWD #### [facility] [address] [place] [address] Monocytes/100 WBC (Bld) 2.9 % Normal [facility] Comment on above: Performed By: #### C BCWD #### [facility] [address] [place] [address] Neutrophils (Bld) [#/Vol] 9.9 10*3/uL Critically high 1.4-6.5 [facility] Comment on above: Performed By: #### C BCWD #### [facility] [address] [place] [address] Neutrophils/100 WBC (Bld) 84.0 % Normal [facility] Comment on above: Performed By: #### C BCWD #### [facility] [address] [place] [address] Ovalocytes 1+ Normal [facility] Comment on above: Performed By: #### C BCWD #### [facility] [address] [place] [address] Platelet Slide Review Decreased Normal [facility] Comment on above: Performed By: #### C BCWD #### [facility] [address] [place] [address] Poikilocytosis 2+ Normal [facility] Comment on above: Performed By: #### C BCWD #### [facility] [address] [place] [address] Slide Review see below Normal [facility] Comment on above: Result Comment: Slid e review agrees with reported results Performed By: #### C BCWD #### [facility] [address] [place] [address] Smudge Cells 3.8 Normal [facility] Comment on above: Performed By: #### C BCWD #### [facility] [address] [place] [address] Erythrocyte distribution width (RBC) [Ratio] 14.1 % Normal 11.5-14.5 [facility] Comment on above: Performed By: #### C BCWD #### [facility] [address] [place] [address] Hematocrit (Bld) [Volume fraction] 43.3 % Normal 42.0-52.0 [facility] Comment on above: Performed By: #### C BCWD #### [facility] [address] [place] [address] Hemoglobin (Bld) [Mass/Vol] 14.1 g/dL Normal 14.0-18.0 [facility] Comment on above: Performed By: #### C BCWD #### [facility] [address] [place] [address] MCH (RBC) [Entitic mass] 30.0 pg Normal 27.0-31.3 [facility] Comment on above: Performed By: #### C BCWD #### [facility] [address] [place] [address] MCHC 32.6 % Low 33.0-37.0 [facility] Comment on above: Performed By: #### C BCWD #### [facility] [address] [place] [address] MCV (RBC) [Entitic vol] 92.1 fL Normal 79.0-92.2 [facility] Comment on above: Performed By: #### C BCWD #### [facility] [address] [place] [address] Platelets (Bld) [#/Vol] 156 10*3/uL Normal 130-400 [facility] Comment on above: Performed By: #### C BCWD #### [facility] [address] [place] [address] RBC (Bld) [#/Vol] 4.70 10*6/uL Normal 4.70-6.10 [facility] Comment on above: Performed By: #### C BCWD #### [facility] [address] [place] [address] WBC (Bld) [#/Vol] 11.8 10*3/uL Critically high 4.8-10.8 [facility] Comment on above: Performed By: #### C BCWD #### [facility] [address] [place] [address] [address] ABDOMEN PELVIS WO CONTRAS Ton 03-27-2023 [...] Clare King MD 03/27/23 Final result Normal [facility] Comprehensive Metabolic Pane bolivar 03-27-2023 Albumin [Mass/Vol] 4.1 g/dL Normal 3.5-4.6 [facility] Comment on above: Performed By: #### C MP #### [facility] [address] [place] [address] ALP [Catalytic activity/Vol] 107 U/L Critically high 35-104 [facility] Comment on above: Performed By: #### C MP #### [facility] [address] [place] [address] ALT [Catalytic activity/Vol] U/L Normal 0-41 [facility] Comment on above: Performed By: #### C MP #### [facility] [address] [place] [address] Anion gap [Moles/Vol] 8 mmol/L Low 9-15 [facility] Comment on above: Performed By: #### C MP #### [facility] [address] [place] [address] AST [Catalytic activity/Vol] 16 U/L Normal 0-40 [facility] Comment on above: Result Comment: Spec imen hemolysis has exceeded the interference as defined by Roel. Value may be falsely increased. Suggest recollection if clinically indicated. Performed By: #### C MP #### [facility] [address] [place] [address] Bilirubin [Mass/Vol] 0.5 mg/dL Normal 0.2-0.7 [facility] Comment on above: Performed By: #### C MP #### [facility] [address] [place] [address] Calcium [Mass/Vol] 9.0 mg/dL Normal 8.5-9.9 [facility] Comment on above: Performed By: #### C MP #### [facility] [address] [place] [address] Chloride [Moles/Vol] 104 mmol/L Normal 95-107 [facility] Comment on above: Performed By: #### C MP #### [facility] [address] [place] [address] CO2 [Moles/Vol] 27 mmol/L Normal 20-31 [facility] Comment on above: Performed By: #### C MP #### [facility] [address] [place] [address] Creatinine [Mass/Vol] 0.90 mg/dL Normal 0.70-1.20 [facility] Comment on above: Performed By: #### C MP #### [facility] [address] [place] [address] GFR >60.0 Normal >60 [facility] Comment on above: Result Comment: Rosalio cuellarc calculator link https://www.kidney.org/professionals/kdoqi/gfr_calculatorped Effective Jan 13, 2022 [...] secretion. Performed By: #### C MP #### [facility] [address] [place] [address] Globulin (S) [Mass/Vol] 2.7 g/dL Normal 2.3-3.5 [facility] Comment on above: Performed By: #### C MP #### [facility] [address] [place] [address] Glucose [Mass/Vol] 92 mg/dL Normal 70-99 [facility] Comment on above: Performed By: #### C MP #### [facility] [address] [place] [address] Potassium [Moles/Vol] 4.7 mmol/L Normal 3.4-4.9 [facility] Comment on above: Performed By: #### C MP #### [facility] [address] [place] [address] Protein [Mass/Vol] 6.8 g/dL Normal 6.3-8.0 [facility] Comment on above: Performed By: #### C MP #### [facility] [address] [place] [address] Sodium [Moles/Vol] 139 mmol/L Normal 135-144 [facility] Comment on above: Performed By: #### C MP #### [facility] [address] [place] [address] Urea nitrogen [Mass/Vol] 11 mg/dL Normal 6-20 [facility] Comment on above: Performed By: #### C MP #### [facility] [address] [place] [address] Urinalysis, reflex to cultur gee 03-27-2023 Bilirubin Ql (U) Negative Normal Negative [facility] Comment on above: Performed By: #### U AR #### [facility] [address] [place] [address] Clarity (U) Clear Normal Clear [facility] Comment on above: Performed By: #### U AR #### [facility] [address] [place] [address] Color (U) Yellow Normal Straw/Wheeler [facility] Comment on above: Performed By: #### U AR #### [facility] [address] [place] [address] Glucose Ql (U) Negative Normal Negative [facility] Comment on above: Performed By: #### U AR #### [facility] [address] [place] [address] Hemoglobin Ql (U) Negative Normal Negative [facility] Comment on above: Performed By: #### U AR #### [facility] [address] [place] [address] Ketones Ql (U) Negative Normal Negative [facility] Comment on above: Performed By: #### U AR #### [facility] [address] [place] [address] Leukocyte esterase Test strip Ql (U) Negative Normal Negative [facility] Comment on above: Performed By: #### U AR #### [facility] [address] [place] [address] Nitrite Ql (U) Negative Normal Negative [facility] Comment on above: Performed By: #### U AR #### [facility] [address] [place] [address] pH (U) 7.0 [pH] Normal 5.0-9.0 [facility] Comment on above: Performed By: #### U AR #### [facility] [address] [place] [address] Protein Ql (U) Negative Normal Negative [facility] Comment on above: Performed By: #### U AR #### [facility] [address] [place] [address] Specific gravity (U) [Rel density] 1.009 Normal 1.005-1.03 [facility] Comment on above: Performed By: #### U AR #### [facility] [address] [place] [address] Urine Reflexed to Culture Not Indicated Normal [facility] Comment on above: Performed By: #### U AR #### [facility] [address] [place] [address] Urobilinogen Qn (U) 0.2 {Lucia'U}/dL Normal < 2.0 [facility] Comment on above: Performed By: #### U AR #### [facility] [address] [place] [address] XR HIP 2-3 VW W PELVIS RIGHT [...] Evan Tijerina MD 03/27/23 Final result Normal [facility] XR HAND LEFT (MIN 3 VIEWS)on 02-02-2023 [...] Clare King MD 02/02/23 Final result Normal [facility] CBC AUTO DIFFon 07-20-2022 BASO # 0.1 103/ul Normal 0.0-0.1 [facility] Comment on above: Performed By: #### C BC #### [facility] [address] [place] [address] Dr. Tony Roque Basophils/100 WBC (Bld) 1.5 % Normal 0.2-2.0 [facility] Comment on above: Performed By: #### C BC #### [facility] [address] [address] [address] Tony Roque EO # 0.3 103/ul Normal 0.0-0.7 [facility] Comment on above: Performed By: #### C BC #### [facility] [address] [place] [address] Dr. Tony Roque Eosinophils/100 WBC (Bld) 4.4 % Normal 0.9-7.0 [facility] Comment on above: Performed By: #### C BC #### [facility] [address] [address] [address] Tony Roque Erythrocyte distribution width (RBC) [Ratio] 13.7 % Normal 11.0-15.0 [facility] Comment on above: Performed By: #### C BC #### [facility] [address] [place] [address] Dr. Tony Roque Hematocrit (Bld) [Volume fraction] 40.0 % Critically low 42.0-54.0 [facility] Comment on above: Performed By: #### C BC #### [facility] [address] [place] [address] Dr. Tony Roque Hemoglobin (Bld) [Mass/Vol] 13.1 g/dL Critically low 14.0-18.0 [facility] Comment on above: Performed By: #### C BC #### [facility] [address] [place] [address] Dr. Tony Roque IG # 0.02 10e3/ul Normal 0.00-0.03 [facility] Comment on above: Performed By: #### C BC #### [facility] [address] [place] [address] Dr. Tony Roque IG % 0.3 % Normal 0.0-0.5 [facility] Comment on above: Performed By: #### C BC #### [facility] [address] [place] [address] Dr. Tony Roque LYMPH # 1.6 103/ul Normal 1.2-3.8 [facility] Comment on above: Performed By: #### C BC #### [facility] [address] [place] [address] Dr. Tony Roque Lymphocytes/100 WBC (Bld) 27.6 % Normal 20.5-60.0 [facility] Comment on above: Performed By: #### C BC #### [facility] [address] [place] [address] Dr. Tony Roque MANUAL DIFF REQ NO Normal [facility] Comment on above: Performed By: #### C BC #### [facility] [address] [place] [address] Dr. Tony Roque MCH (RBC) [Entitic mass] 29.3 pg Normal 25.9-34.0 [facility] Comment on above: Performed By: #### C BC #### [facility] [address] [place] [address] Dr. Tony Roque MCHC (RBC) [Mass/Vol] 32.8 g/dL Normal 29.9-35.2 [facility] Comment on above: Performed By: #### C BC #### [facility] [id number] Tony Roque MCV (RBC) [Entitic vol] 89.5 fL Normal 80.0-94.0 [facility] Comment on above: Performed By: #### C BC #### [facility] [address] [address] [address] Tony Roque MONO # 0.7 103/ul Normal 0.3-0.8 [facility] Comment on above: Performed By: #### C BC #### [facility] [address] [address] [address] Tony Roque Monocytes/100 WBC (Bld) 11.1 % Normal 1.7-12.0 [facility] Comment on above: Performed By: #### C BC #### [facility] [address] [address] [address] Tony Roque NEUT # 3.3 103/ul Normal 1.4-6.5 [facility] Comment on above: Performed By: #### C BC #### [facility] [address] [place] [address] Dr. Tony Roque Neutrophils/100 WBC (Bld) 55.1 % Normal 43.0-75.0 [facility] Comment on above: Performed By: #### C BC #### [facility] [address] [address] [address] Tony Roque Platelet mean volume (Bld) [Entitic vol] 11.6 fL Normal 9.5-13.5 [facility] Comment on above: Performed By: #### C BC #### [facility] [address] [place] [address] Dr. Tony Roque PLT 197 103/ul Normal 150-450 [facility] Comment on above: Performed By: #### C BC #### [facility] [id number] Tony Roque RBC 4.47 106/ul Critically low 4.70-6.10 [facility] Comment on above: Performed By: #### C BC #### [facility] [address] [address] [address] Tony Roque WBC 6.0 103/ul Normal 4.0-11.0 [facility] Comment on above: Performed By: #### C BC #### [facility] [address] [place] [address] Dr. Tony Roque PROF CHEM 8 (BAS METB)on Anion gap [Moles/Vol] 10.5 mmol/L Normal [facility] Comment on above: Performed By: #### B MP #### [facility] [address] [place] [address] Dr. Tony Roque Calcium [Mass/Vol] 8.3 mg/dL Critically low 8.5-10.1 [facility] Comment on above: Performed By: #### B MP #### [facility] [address] [place] [address] Dr. Tony Roque Chloride [Moles/Vol] 106 mmol/L Normal 98-107 [facility] Comment on above: Performed By: #### B MP #### [facility] [address] [place] [address] Dr. Tony Roque CO2 [Moles/Vol] 27.1 mmol/L Normal 21.0-32.0 [facility] Comment on above: Performed By: #### B MP #### [facility] [address] [place] [address] Dr. Tony Roque Creatinine [Mass/Vol] 1.05 mg/dL Normal 0.70-1.30 [facility] Comment on above: Performed By: #### B MP #### [facility] [address] [place] [address] Dr. Tony Roque EGFR-AF CITIZEN [place] >60 Normal >=60 [facility] Comment on above: Performed By: #### B MP #### [facility] [address] [place] [address] Dr. Tony Roque EGFR-NON AF CITIZEN OF [place] >60 Normal >=60 [facility] Comment on above: Performed By: #### B MP #### [facility] [address] [place] [address] Dr. Tony Roque Glucose [Mass/Vol] 100 mg/dL Normal 74-106 [facility] Comment on above: Performed By: #### B MP #### [facility] [address] [place] [address] Dr. Tony Roque Potassium [Moles/Vol] 4.6 mmol/L Normal 3.5-5.1 [facility] Comment on above: Performed By: #### B MP #### [facility] [address] [place] [address] Dr. Tony Roque Sodium [Moles/Vol] 139 mmol/L Normal 136-145 [facility] Comment on above: Performed By: #### B MP #### [facility] [address] [place] [address] Dr. Tony Roque Urea nitrogen [Mass/Vol] 21.0 mg/dL Critically high 7.0-18.0 [facility] Comment on above: Performed By: #### B MP #### [facility] [address] [place] [address] Dr. Tony Roque Urea nitrogen/Creatinine [Mass ratio] 20.0 mg/mg Normal [facility] Comment on above: Performed By: #### B MP #### [facility] [address] [place] [address] Dr. Tony Roque CBC AUTO DIFFon 07-19-2022 BASO # 0.1 103/ul Normal 0.0-0.1 [facility] Comment on above: Performed By: #### C BC #### [facility] [address] [place] [address] Dr. Tony Roque Basophils/100 WBC (Bld) 1.2 % Normal 0.2-2.0 [facility] Comment on above: Performed By: #### C BC #### [facility] [address] [place] [address] Dr. Tony Roque EO # 0.1 103/ul Normal 0.0-0.7 [facility] Comment on above: Performed By: #### C BC #### [facility] [address] [place] [address] Dr. Tony Roque Eosinophils/100 WBC (Bld) 1.6 % Normal 0.9-7.0 [facility] Comment on above: Performed By: #### C BC #### [facility] [address] [place] [address] Dr. Tony Roque Erythrocyte distribution width (RBC) [Ratio] 13.4 % Normal 11.0-15.0 [facility] Comment on above: Performed By: #### C BC #### [facility] [address] [place] [address] Dr. Tony Roque Hematocrit (Bld) [Volume fraction] 44.8 % Normal 42.0-54.0 [facility] Comment on above: Performed By: #### C BC #### [facility] [address] [place] [address] Dr. Tony Roque Hemoglobin (Bld) [Mass/Vol] 15.1 g/dL Normal 14.0-18.0 [facility] Comment on above: Performed By: #### C BC #### [facility] [address] [place] [address] Dr. Tony Roque IG # 0.04 10e3/ul Critically high 0.00-0.03 [facility] Comment on above: Performed By: #### C BC #### [facility] [address] [place] [address] Dr. Tony Roque IG % 0.6 % Critically high 0.0-0.5 [facility] Comment on above: Performed By: #### C BC #### [facility] [address] [place] [address] Dr. Tony Roque LYMPH # 1.1 103/ul Critically low 1.2-3.8 [facility] Comment on above: Performed By: #### C BC #### [facility] [address] [place] [address] Dr. Tony Roque Lymphocytes/100 WBC (Bld) 16.6 % Critically low 20.5-60.0 [facility] Comment on above: Performed By: #### C BC #### [facility] [address] [place] [address] Dr. Tony Roque MANUAL DIFF REQ NO Normal [facility] Comment on above: Performed By: #### C BC #### [facility] [address] [place] [address] Dr. Tony Roque MCH (RBC) [Entitic mass] 29.7 pg Normal 25.9-34.0 [facility] Comment on above: Performed By: #### C BC #### [facility] [address] [place] [address] Dr. Tony Roque MCHC (RBC) [Mass/Vol] 33.7 g/dL Normal 29.9-35.2 [facility] Comment on above: Performed By: #### C BC #### [facility] [address] [place] [address] Dr. Tony Roque MCV (RBC) [Entitic vol] 88.2 fL Normal 80.0-94.0 [facility] Comment on above: Performed By: #### C BC #### [facility] [address] [place] [address] Dr. Tony Roque MONO # 0.6 103/ul Normal 0.3-0.8 [facility] Comment on above: Performed By: #### C BC #### [facility] [address] [place] [address] Dr. Tony Roque Monocytes/100 WBC (Bld) 9.0 % Normal 1.7-12.0 [facility] Comment on above: Performed By: #### C BC #### [facility] [address] [place] [address] Dr. Tony Roque NEUT # 4.7 103/ul Normal 1.4-6.5 [facility] Comment on above: Performed By: #### C BC #### [facility] [address] [place] [address] Dr. Tony Roque Neutrophils/100 WBC (Bld) 71.0 % Normal 43.0-75.0 [facility] Comment on above: Performed By: #### C BC #### [facility] [address] [place] [address] Dr. Tony Roque Platelet mean volume (Bld) [Entitic vol] 11.2 fL Normal 9.5-13.5 [facility] Comment on above: Performed By: #### C BC #### [facility] [address] [place] [address] Dr. Tony Roque PLT 246 103/ul Normal 150-450 [facility] Comment on above: Performed By: #### C BC #### [facility] [address] [place] [address] Dr. Tony Roque RBC 5.08 106/ul Normal 4.70-6.10 [facility] Comment on above: Performed By: #### C BC #### [facility] [address] [place] [address] Dr. Tony Roque WBC 6.7 103/ul Normal 4.0-11.0 [facility] Comment on above: Performed By: #### C BC #### [facility] [address] [place] [address] Dr. Tony Roque CRPon 07-19-2022 CRP [Mass/Vol] mg/L Normal <=1.0 [facility] Comment on above: Performed By: #### C RP, CMP #### [facility] [address] [place] [address] Dr. Tony Roque CULTURE BLOODon 07-19-2022 Microscopic examination of blood, culture Culture Observations: NO GROWTH AT 5 DAYS. Normal [facility] Comment on above: Performed By: #### L ACT #### [facility] [address] [place] [address] Dr. Tony Roque Microscopic examination of blood, culture Culture Observations: NO GROWTH AT 5 DAYS. Isolate 1 BC_BA_NA Normal [facility] Comment on above: Performed By: #### L ACT #### [facility] [address] [place] [address] Dr. Tony Roque [facility]on SARS-CoV-2 (COVID-19) RNA CLARI+probe Ql (Unsp spec) Not detected Normal NOT DETECTED [facility] Comment on above: Result Comment: When [...] for this test is supported by the [place] of Health and Human Service's declaration that [...] used). Performed By: #### L ACT #### [facility] [address] [place] [address] Dr. Tony Roque LACTATE/LACTIC ACIDon 2022 Lactate [Moles/Vol] 1.3 mmol/L Normal 0.4-2.0 [facility] Comment on above: Performed By: #### L ACT #### [facility] [address] [place] [address] Dr. Tony Roque PROF 14(COMP METB)on 023 Albumin [Mass/Vol] 3.8 g/dL Normal 3.4-5.0 [facility] Comment on above: Performed By: #### C RP, CMP #### [facility] [address] [place] [address] Dr. Tony Roque Albumin/Globulin [Mass ratio] 1.0 {ratio} Normal [facility] Comment on above: Performed By: #### C RP, CMP #### [facility] [address] [place] [address] Dr. Tony Roque ALP [Catalytic activity/Vol] 124 U/L Critically high 46-116 [facility] Comment on above: Performed By: #### C RP, CMP #### [facility] [address] [place] [address] Dr. Tony Roque ALT [Catalytic activity/Vol] 13 U/L Critically low 16-63 [facility] Comment on above: Performed By: #### C RP, CMP #### [facility] [address] [address] [address] Tony Roque Anion gap [Moles/Vol] 11.5 mmol/L Normal [facility] Comment on above: Performed By: #### C RP, CMP #### [facility] [address] [address] [address] Tony Roque AST [Catalytic activity/Vol] 13 U/L Critically low 15-37 [facility] Comment on above: Performed By: #### C RP, CMP #### [facility] [address] [address] [address] Tony Roque Bilirubin [Mass/Vol] 0.5 mg/dL Normal 0.2-1.0 [facility] Comment on above: Performed By: #### C RP, CMP #### [facility] [address] [address] [address] Tony Roque Calcium [Mass/Vol] 9.4 mg/dL Normal 8.5-10.1 [facility] Comment on above: Performed By: #### C RP, CMP #### [facility] [address] [address] [address] Tony Roque Chloride [Moles/Vol] 103 mmol/L Normal 98-107 [facility] Comment on above: Performed By: #### C RP, CMP #### [facility] [address] [address] [address] Tony Roque CO2 [Moles/Vol] 28.2 mmol/L Normal 21.0-32.0 [facility] Comment on above: Performed By: #### C RP, CMP #### [facility] [address] [address] [address] Tony Roque Creatinine [Mass/Vol] 0.86 mg/dL Normal 0.70-1.30 [facility] Comment on above: Performed By: #### C RP, CMP #### [facility] [address] [address] [address] Tony Roque EGFR-AF CITIZ[place] >60 Normal >=60 [facility] Comment on above: Performed By: #### C RP, CMP #### [facility] [address] [address] [address] Tony Roque EGFR-NON AF CITIZ[place] >60 Normal >=60 [facility] Comment on above: Performed By: #### C RP, CMP #### [facility] [address] [address] [address] Tony Roque Globulin (S) [Mass/Vol] 3.8 g/dL Normal [facility] Comment on above: Performed By: #### C RP, CMP #### [facility] [address] [address] [address] Tony Roque Glucose [Mass/Vol] 114 mg/dL Critically high 74-106 [facility] Comment on above: Performed By: #### C RP, CMP #### [facility] [address] [place] [address] Dr. Tony Roque Potassium [Moles/Vol] 3.7 mmol/L Normal 3.5-5.1 [facility] Comment on above: Performed By: #### C RP, CMP #### [facility] [address] [place] [address] Dr. Tony Roque Protein [Mass/Vol] 7.6 g/dL Normal 6.4-8.2 [facility] Comment on above: Performed By: #### C RP, CMP #### [facility] [address] [place] [address] Dr. Tony Roque Sodium [Moles/Vol] 139 mmol/L Normal 136-145 [facility] Comment on above: Performed By: #### C RP, CMP #### [facility] [address] [place] [address] Dr. Tony Roque Urea nitrogen [Mass/Vol] 10.0 mg/dL Normal 7.0-18.0 [facility] Comment on above: Performed By: #### C RP, CMP #### [facility] [address] [place] [address] Dr. Tony Roque Urea nitrogen/Creatinine [Mass ratio] 11.6 mg/mg Normal [facility] Comment on above: Performed By: #### C RP, CMP #### [facility] [address] [address] [address] Tony Roque TROPONIN, HIGH SENSITIVITYon 07-19-2022 HSTROP 4.1 pg/mL Normal 4.0-76.1 [facility] Comment on above: Result Comment: CUT- OFF POINTS HAVE BEEN ESTABLISHED BASED ON THE FOURTH UNIVERSAL DEFINITIONS OF MYOCARDIAL INFARCTION. THE UPPER REFERENCE LIMIT (URL) OF TROPONIN, DEFINED THE 99TH PERCENTILE OF cTnI DISTRIBUTION IN A REFERENCE POPULATION, HAS BEEN CONFIRMED THE DECISION THRESHOLD FOR [place] DIAGNOSIS. Performed By: #### H STROPN #### [facility] [address] [address] [address] Tony Roque XR FOOT LT 2Von [...] by: KARLA MANZANO Date: 2022-06-20 07:03 Normal [facility] XR FOOT LT MIN 3 [...] by: KARLA MANZANO Date: 2022-06-20 07:05 Normal [facility] POINT OF CARE GLUCOSEon Glucose [Mass/Vol] 95 mg/dL Normal 74-106 [facility] Comment on above: Performed By: #### P OCGLUC #### [facility] [address] [address] [address] Tony Roque Glucose [Mass/Vol] 123 mg/dL Critically high 74-106 [facility] Comment on above: Performed By: #### P OCGLUC #### [facility] [address] [address] [address] Tony Roque PROF CHEM 8 (BAS METB)on Anion gap [Moles/Vol] 9.0 mmol/L Normal [facility] Comment on above: Performed By: #### B MP #### [facility] [address] [place] [address] Dr. Tony Roque Calcium [Mass/Vol] 8.9 mg/dL Normal 8.5-10.1 [facility] Comment on above: Performed By: #### B MP #### [facility] [address] [place] [address] Dr. Tony Roque Chloride [Moles/Vol] 107 mmol/L Normal 98-107 [facility] Comment on above: Performed By: #### B MP #### [facility] [address] [place] [address] Dr. Tony Roque CO2 [Moles/Vol] 31.8 mmol/L Normal 21.0-32.0 [facility] Comment on above: Performed By: #### B MP #### [facility] [address] [place] [address] Dr. Tony Roque Creatinine [Mass/Vol] 0.77 mg/dL Normal 0.70-1.30 [facility] Comment on above: Performed By: #### B MP #### [facility] [address] [place] [address] Dr. Tony Roque EGFR-AF [place]IZ[place] >60 Normal >=60 [facility] Comment on above: Performed By: #### B MP #### [facility] [address] [place] [address] Dr. Tony Roque EGFR-NON AF CITIZ[place] >60 Normal >=60 [facility] Comment on above: Performed By: #### B MP #### [facility] [address] [place] [address] Dr. Tony Roque Glucose [Mass/Vol] 83 mg/dL Normal 74-106 [facility] Comment on above: Performed By: #### B MP #### [facility] [address] [place] [address] Dr. Tony Roque Potassium [Moles/Vol] 3.8 mmol/L Normal 3.5-5.1 [facility] Comment on above: Performed By: #### B MP #### [facility] [address] [place] [address] Dr. Tony Roque Sodium [Moles/Vol] 144 mmol/L Normal 136-145 [facility] Comment on above: Performed By: #### B MP #### [facility] [address] [place] [address] Dr. Tony Roque Urea nitrogen [Mass/Vol] 10.0 mg/dL Normal 7.0-18.0 [facility] Comment on above: Performed By: #### B MP #### [facility] [address] [place] [address] Dr. Tony Roque Urea nitrogen/Creatinine [Mass ratio] 13.0 mg/mg Normal [facility] Comment on above: Performed By: #### B MP #### [facility] [address] [place] [address] ANKLE LT WO [...] by: SAURAV KERNS Date: 2021-11-14 18:02 Normal [facility] Consenton 11-04-2021 Consent [id number]#1. 00CD:[address] [facility] Registrationon 11-04-2021 Registration [id number]#1. 00CD:[address] [facility] Creatinine and Glomerular fi ltration rate.predicted panel (S/P/Bld)Ordered By: Scott Rodriguez on 09-19-2021 Creatinine [Mass/Vol] 1.37 mg/dL 0.64-1.27 [facility] Estimated glomerular filtrat ion rate (GFR) non- AmericanOrdered By: Scott Rodriguez on 09-19-2021 GFR/1.73 sq M.predicted among non-blacks MDRD (S/P/Bld) [Vol rate/Area] 54 mL/Min [facility] No Panel InformationOrdered By: Scott Rodriguez on 09-19-2021 Estimated GFR () > 60 mL/Min [facility] Comment on above: GFR estimated refere nce range: According to KDOQI guidelines, <60 ml/min/1.73m2 is sufficient to diagnose a patient with chronic kidney disease. Pharmacy Creatinine Clearance (Chem 62.[address] [facility] CT ANKLE LT WO CONon 022 CT [...] stable in appearance. Marked degenerative changes with [id number] articulation and remodeling of the tibiotalar joint. [...] by: SHIRLEY CASTILLO Date: 2021-09-18 16:30 Normal [facility] Basic Metabolic Panelon 05 Calcium [Mass/Vol] 9.5415800 mg/dL Normal 8.2-10 .2 mg/dL [email or web address] Other Chloride [Moles/Vol] 105 mmol/L Normal 95-114 mmol/L [employer] Other CO2 [Moles/Vol] 24.81491466 mmol/L Normal 22.0-3 0.0 mmol/L [employer] Other Creatinine [Mass/Vol] 1.04483837 mg/dL Normal 0. 64-1.27 mg/dL [employer] Other Glucose [Mass/Vol] 77 mg/dL Normal 70-100 mg/dL [facility] [employer] Other Potassium [Moles/Vol] 4.80707559 mmol/L Normal 3 .5-5.1 mmol/L [employer] Other Sodium [Moles/Vol] 137 mmol/L Normal 136-146 mmol/L [employer] Other Urea nitrogen [Mass/Vol] 17 mg/dL Normal 9-23 mg/dL [employer] Other Basic Metabolic Panel > 60 [facility] [employer] Other C-Reactive Proteinon 022 C-Reactive Protein 0.7 mg/dL Normal 0.0-1.0 mg/dL [employer] Other Complete Blood Count Auto Di ffon 08-16-2021 Basophils (Bld) [#/Vol] 0.877282508 10*3/uL Normal 0.0-0.2 10*3/uL [employer] Other Basophils/100 WBC (Bld) 1.800 % . % [employer] Other Eosinophils (Bld) [#/Vol] 0.514292634 10*3/uL Normal 0.0-0.45 10*3/uL [employer] Other Eosinophils/100 WBC (Bld) 2.600 % . % [employer] Other Erythrocyte distribution width (RBC) [Ratio] 14.800 % Normal 12.0-14.8 % [employer] Other Hematocrit (Bld) [Volume fraction] 36.200 % Low 38.8-50.0 % [employer] Other Hemoglobin (Bld) [Mass/Vol] 12.245631 g/dL Low 13.0-17.0 g/dL [employer] Other Lymphocytes (Bld) [#/Vol] 1.913907133 10*3/uL Normal 1.00-4.8 10*3/uL [employer] Other Lymphocytes/100 WBC (Bld) 23.800 % . % [employer] Other MCH (RBC) [Entitic mass] 29.3000 pg Normal 27.5-35.2 pg [employer] Other MCV (RBC) [Entitic vol] 86.8000 fL Normal 83.5-101 fL [employer] Other Monocytes (Bld) [#/Vol] 0.570851093 10*3/uL Normal 0.0-0.8 10*3/uL [employer] Other Monocytes/100 WBC (Bld) 7.900 % . % [employer] Other Neutrophils (Bld) [#/Vol] 4.187723254 10*3/uL Normal 1.8-7.7 10*3/uL [employer] Other Neutrophils/100 WBC (Bld) 63.900 % . % [employer] Other Platelet mean volume (Bld) [Entitic vol] 9.4000 fL Normal 6.6-10.1 fL [employer] Other Platelets (Bld) [#/Vol] 222 10*3/uL Normal 150-450 10*3/uL [employer] Other RBC (Bld) [#/Vol] 4.4629075686 10*6/uL Normal 3. 90-5.60 10*6/uL [employer] Other WBC (Bld) [#/Vol] 6.509238021 10*3/uL Normal 4.1 -10.5 10*3/uL [employer] Other Complete Blood Count Auto Diff 6.2 10*3/uL Normal 4.5-11.0 10*3/uL [employer] Other Complete Blood Count Auto Diff 33.7 g/dL Normal 32.5-35.6 g/dL [employer] Other Complete Blood Count Auto Diff 0.0 % Normal 0-0.5 % [employer] Other ED Note-Physicianon 06-23-19 ED Note-Physician Basic [...] ankle fracture and underwent surgical repair in [place]. He said following that repair he had to have another surgery for an ankle fusion which was done at [facility] by Dr. Hart. Patient tells me [...] weakness and erythema. Patient has been taking [place] and tramadol and naproxen for the pain without relief. He denies any new trauma or injury. 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 Normal [facility] Comment on above: Result Comment: Elec tronically Signed By: Na Torres PA-C\.br\Date and Time Signed: 06/16/21 19:16 EST\.br\Electronically Co-Signed By: Ryan Veronica DO\.br\Date and Time Co-Signed: 06/22/21 12:55 EST Coding Summary.on 06-20-2021 Coding Summary. CD:[id number] G h0bWw+PGhlYWQ+SZ7DCEQ zA92uiOTwoG5UQ2tXSV7U FTCFGRZFGH3XVA5vfER4I XmrA7SiiwJj FhfixIMpAQ22EPk1RSF6d JwhFRcogD2mtDBcA6q1Pa ZrFI50gG24IUzwPVMlZwA 3LjZpbjsgbWFy J8yvOqWhePVsBhb+PHRhY mxlIHdpZHRoPScxMDAlJy JbwJtbQE1xNu9xYOCcVWH vbGxhcHNlOiBj i9gfPPVtXXczHT7fyZnaD 8DemVI8FTTjy8x5Lz06oE I+YTLaZYH7bYokMIrxi50 5XrChe2pzMAX3 hVPyDWzgOMZ6U33ox1R4E WPwJPRiBRH4lLC3qM4zpT chswloH7QfiIVaZiA5FYG 4yTUvdD2hhTug tdzjdU9dShe+A71APW4CA YJUFU4QEhk1H9WqPijzsA I+DW73MLXpXO00aVBgpIZ pn4wkhOl4GwVo OTViWIE1vDtyADehg8TmU HEjP04fqJWeb7Z1FJJuaW jkkBFaHdKnbWK7hC0iANp iiceai0xjthim Znmbv3ynqg55gC81U92hY QwoGNVhUNX1ZJNtHEFpuJ lxsr2afJ6eWh3+RZgly5o nf7tfyXu0HfLw IGMsvqCkrAwfPZN6m8UlI s78B6ZqfGgcx7UmDej7bu 36rVDoa7Q7fDP0KVatEXC qjB6kKJdnHuH1 WAIcTnOeqA39aCAzVHljT k3pcEeeuSfwMO5zGUIytn efUHVziT1fRUTuoPHanEs gEE4wAQLyzdgo q107AaLmWSZ1CWXcrHMvS 1PhqQ8zLyWqNTCvPHKfY2 XjiTWbQFwoR687SXvtSkL 1EISsigNtV2Px WBZlqRceYsX3g6R1Ab1Mt 2RecjunEOO3DVtyOSZkFt MbTbBoYuZ7X1DeTex2NJV trCxySL0zS5An XISbntkcnxestRK4QCJqS BAivA80zRBeRDvcWp6xi9 R9s657ONUaQIAfrF73Gz2 udDogMTBwdCBU iU8ahnwgh7yopiabQjWkE OEuZZf2QBp5GMUixTjvSt KjZEI1DbE2WVT7fNBamE2 ykRtjkbtbxE8n Oyc+D62bmX6wILH2QTL9g ncbQKNhrjUrXQ85BG00D2 RyPjwvdGFibGU+PGRpdiB itQrnLX1hKiRw j0ook6UiRWyvT0UvQMQsL WtpSwu4VUKxHQI7rHJ9uE 3vEYJxIMolp9E8iVU6O4D tinHbpx9gh2ec UIFvSZmdN20vpADxe5T7V GRsjCL8QHTfyFlwKjRdfA 93Oyc+EMBmyZqqj9RmGes um7qld1wdcZq5 EqApQRUsskOysHvyREJ8v 0OoEm21A48hQCfwVRHkQE JsDGQiQFEzpInuuu6khG2 wIi8+PGNvbCB3 tRA7cP0jKNLlUzG9HEisM 093KjSjfEFqPexvg2ueo6 tdpTp2TsVtLJQqluCyuHu hWXM3t9MxBk12 F96zLKslCQTmADDwMWJsO KCkwRmawi3pbH0oVp7+PC 7vp6nrow23kI64aIR+PHR aHVG1tQkyLNdr TVNhjE8nENwvHhR4JYImQ sFhiN70qZLwFFrkKr8kzO jpjGovVG2mCHHicdkiy73 9TfIlt7xnGSIy uKOrMAzqDKK2N30my8Q9O KUiYCSpYVK1bGF6mT8bbU lnbjogbGVmdDsgdmVydGl bEOpwPSvtA060 IHRvcDsnPlBhdGllbnQgT gQdZFj6M1RjAsm8DHRsdD viWN9efGQlLPdeHa1ydBb naTdxDJ3aGLEz gjmvz240MoHhz6wpUPGhc MSzVFzqCCA5N18rx0X3IM MvDPBpBIU6zZE7pA2ipNk nbjogbGVmdDsg uwTspClzWLbjKJglO521P HRvcDsnPkJpcnRoIERhdG W2VB80XL39cXDpv3C9nRP 1K6OfGUCnbakq uvhvsZW3CNWiWCJvbH21E s7luDhhMw9cHTVfENG5OI DowRIyC7UjgJ3jHtWhNCN rBOTmB3SrcBMb DLwcO406TEmwZrS7ZUSsw sXfE3GxUPIdmBzaSvS8z7 C7Eh4AL2I2HV03KE10gYM xu5M1wJV5K9Vd RUYeezoftzoxtBU1IHAmO ZMyjU62Cg2obHdjJo0gXQ BfPGB9FWSrfNLmQ9GlyE1 yOiAjMDAwMDAw Y1MkpVIhCZmkW363ZIarF oH6TJFddmLaD6XxAEIelU glEdE1e0P5Jd1MGQg7FC5 3LW88nGPia2F0 eTQ9U6NdQQKhevkeinbfx YH8BARfYXNsfX73Bk3zdY zmXp6yBULmQDL2XMVpiXJ dD5KlsE5eMjBb UNSmEPHiW5GxiPPcRTroD 551DJagAhX6RVJgieTlW7 HuFNTzfIigYqE7t3N8Wo6 JTXRoNY07NCD2 tOF2VV29XO36M0OqAiopv GFibGU+PHRhYmxlIHdpZH RoPScxMDAlJyBzdHlsZT0 aRw0tUTZjQGMv qWqziWBhGoCnw0dpQTSlZ IluHZ1jwBvwO2PmuAQ6RL Clx4u6Yx53X23rC9XxlSO +BASajDG4dTO8 nY1hLkCtFeK7EJefU922F qFekQZaBdest3ppg9gxnS c2YxW5SCPoajFncRbpXUG 4o8XwVj79M85t IHdpZHRoPSIxNSUiIHZhb Leecb3dnV2hJi3+PGNvbC W6aHU1qJ0fHvTwPkC9OBf yA046JuRsqUKt Fwhpb2yvh8ddxRa4LmZrT JWiydZjtJggWTG2t0EvHe 12O7YgoMggx1TaSsp6ko0 0rMGns5P3rKX0 R0EbQVRdwxaanLAnhOkmU S4iBNLxexrvFAOqzW4lCN YyU8i6LaEqMpL7XLulF0T fguI8YXKrnQDh PUkyEKL6F68sv9O2XJYoN OAkEPS9pPL0kP5myMvrae ogbGVmdDsgdmVydGljYWw ePIvaX179DNJz gSsqDRWktM7eRKCbnTCtl TqyOQ8pYXBsjyetPqBUZC FMW1RjHASGOSPeQTrojEI +IKJeXNH0zTpq RPvrIFTxuZ5aZLFyK6g0Q nNeEqS2VOhrD4BeZRZlta udQy13pE2jGuPxVtK8KIi rU1PthpS8IZSm uISfCPqlJNL1K08xv0A4T VAnCHKiSJG5iAV5wU5iiA lnbjogbGVmdDsgdmVydGl nVCswWErnN853 WOSlxSncRqY6EnV4UeD9P aU8T8XyRak6AZSsnIuyDN 5wmPAlAIyhIe6ciHsytXy nCT8nOSBldzgh JPXsvF6hNKFnbIEmbPwgW G3xUVNaffaer455AvTvBH J7YMAiaCQeQ6NtkV2qEyD vSSLyZHWiN5Uu sVGlKTvyE637QBbfGkM9E MCadoXaU8XcJKWmvKgrCb Z4t1H3Fw12YSNTWEEywxu vdGQ+PHRkIHN0 qGjlPMuvPEHvrQ0tBZGpI 8u4RaAkWbW7IWgfL9OyYF RtepzjYd09mH7nBnYdBdK 4GBoaT7NrekT9 JPOddYVxQIgmNGU7B62tv 0V8VXBjIXBaIZO1bBJ9eN 1hbGlnbjogbGVmdDsgdmV ydGljYWwtYWxp G279WFCwhTkgFb8qfPE7M 2UaGks9SNMjiHqlKQ2qcE SeJZqrNy7dsFiciVflMZ1 wNTBpbjtwYWRk wS6iIPHhlPNvbSxoPK5jN URcsgzyz374PoPpYWK0ZH EqnYNpD7UplD1fEcIhBUA fPTWzP0BivUWn NBmzC741ROctEvC8JPVir vBeI3YhLAHarUpzMrN8h5 B2Ul7WiTQxW7SvZ1n8I3Y kPjwvdHI+PC90 YSOeGM08gPIypOYwf3yzo Xs8JtYkLJAxATF1aDrwKV fjc8OnNABdZ88hiGAwh9R 6IGNvbGxhcHNl FhWtqVD1wC8yFTuadlbnp 7owbrjdWjncc7aayj48bY 59F83zYLwoQELrBZUbAAV qMVYwxMeahy3n eP1jNw4+VKVfoYL9wAH2y Q5sNqFyJwU0WEawB493Zh TynZHyKoyzn2uvq9xnfUy 9IjIwJSIgdmFs hSldZTV5m9KvHr91A29fE HdpZHRoPSIyMCUiIHZhbG vuco2rhR5yWn1+HC6um7u gmy60sK66nEF+ EWEjPUI1nGpeSMjjFIQeh B9zSXbuJdR1AAEeRcUukJ 28bGHuMGhbHu0ygDzhuUs oSF1nIXBtzjji t352KwZuy7odVYGsgIJvJ NuvEVD8L87dc3E8DVKwMC MjXIF0wKA4sN3lfJalkra gbGVmdDsgdmVy gStxOZujTQnvS303PAQnw NkfGqVtfFKeE9aqlwHKZU 1lOjwvdGQ+GIQsZEE6wYy zLNhpYVSadG2c PONuN0r0XgNfLzD9LLcyS 6NimiB0NDPygXIaFCNxxN MJtZ5nxixlf5cilunbWiV eEXBfESk6OEs1 ASIbjGlmMlBaBCU1CmQ4P DG5kFGjcV1xnFjsghkyyI 9wOyc+RklOOjwvdGQ+PHR jJBD9kJzdTRyy HDCwhH9hQSRfP9h2PnVnM bY0IIbkT4MgdvV3WYZssM SoJECzsEERdA5clidvd1u vcjogIzAwMDAw SGh7XZx1ZCNwmNgmRyYwC VN6TdA3RWQ9tAKldV9adH ypacjgmK3mNqq+TVJOOjw vdGQ+PHRkIHN0 lGzaXFknCCWlsA9dLFYkF 2g3UgEmRmM3DEwwH5Atcp C0HVWuvSKoBPYglAKXmY1 zsjsts8fjjjym HaRgNBGxIZx7NDq1IIAwi HrxZxEpMDZ0KvD0NOD7lO IryF0yqRydenjkzK6fYwi +HWS5WLZ5BF69 BI85Y3KhYupfwPCxbXT+P HRhYmxlIHdpZHRoPScxMD MtQpFolZokUB4mUa3uHLW yLWNvbGxhcHNl OiBj (more content not included)... Normal [facility] ED Noteon 06-19-2021 ED Note Culture results sent to [facility]. Normal [facility] ED Noteon 06-17-2021 ED Note Chandni Wylie from [facility] - Surgical dept. called to see if we performed a covid test while the patient was here on Thursday06/15/2021. She verified the information and I advised her we did not. That's all they needed. Normal [facility] CT Lower Extremity w/ Contra st [...] Comments Contrast amount in ml's: 100 Normal [facility] ED Clinical Summaryon 2021 ED Clinical Summary [address] [address] ED Clinical Summary Person Information Name: SANDRA BOSS Lennie/[facility] Age: 55 Years : 1965 Sex: Male Language: Welsh PCP: CLARE BRANDT DO Marital Status: Visit [...] 06/16/2021 02:23:28 06/16/2021 02:23:28 06/16/2021 02:23:28 ADDRESS: [facility] [address] [place] [facility] [id number] [facility] DOC NOTES: MEDICAL INFORMATION: Prescriptions Given: Medications to Continue with No Changes Other Medications acetaminophen-hydroco done ([place] 325 mg-5 mg oral tablet) 1 Tablets [...] Follow up: DIAGNOSIS: 1:Osteomyelitis of ankle Normal [facility] ED Noteon 06-16-2021 ED Note 2046-Called podiatry group at [facility] with which patient follows with Dr. Delaney. Attending Dr. Veronica spoke with on-call tray casting machine operator Dr. Fair. 2101-Called [facility] and spoke with Lisandra, hospital supervisor record press. Faxed facesheet.Dr. Goldstein is attending hospitalist. returned call and stated Dr. Goldstein accepts. Patient going to 2128-called [facility] for ETA. ETA 0230. As patient has no insurance [facility] to call back with pricing. Stated patient had to pay upfront or either hospital needed to take financial responsibility. dental equipment mechanic Mercedez spoke with ER supervisor record press Yolis who stated [facility] would accept cost. [facility] paperwork faxed. Awaiting return call for cost. Report given to [facility] school attendance secretary Marielos. Report #-[phone] [facility] ED Patient Education Noteon 06-16-2021 ED Patient Education Note Normal [facility] ED Patient Summaryon 022 ED Patient Summary [place] [id number] Patient Discharge Instructions Person Information Name: SALONI BOSSIC Lani Age: 55 Years Arrival Date: 06/15/2021 14:24:40 Discharge Diagnosis: 1:Osteomyelitis of ankle Primary Care Physician: CLARE BRANDT DO Provider Information Primary Provider: Ryan Veronica DO Advanced Receiver/Laborer:Na Torres PA-C The exam and treatment you received in the Emergency Department were for an urgent problem and are not intended as complete care. It is important that you follow up with a doctor, nurse practitioner, or physician?s patient care nursing assistant for ongoing care. If your symptoms [...] opioids can be used to help relieve bsrwgofz-zr-wxusyv pain and are often prescribed following a [...] be struggling with addiction, tell your health health care specialist and ask for guidance or call [facility] National Helpline at 2-162-148-HJUJ. n Source: [place] Department of Health and Human Services/Center for Disease Control & Prevention [facility] Medications Given: Medication Dos (more content not included)... Normal [facility] Progress Note-Nurseon 2021 Progress Note-Nurse Pt. resting with eye s closed, and unlabored respirations. Orphenadrine not given at this time, Dr. James aware. Normal [facility] Progress Note-Nurse Called report to [facility] spoke with Mildred CINTRON for room 213 Patient updated on poc and call light in reach [facility] Transfer Documentson 022 Transfer Documents [id number]# 1.00CD:[address] [facility] US LE Venous Duplex Lefton 0 [...] Signed by: Rio Lopes M.D. Transcribed by: DP Technologist: YESSY Normal [facility] Auto Diffon 06-15-2021 Basophils/100 WBC (Bld) 0.4 % Normal 0.0-2.[address] [facility] Comment on above: Order Comment: Order Added by Chris Expert. Performed By: #### 2 460145, 01570329, 3205284, 1625381, 31674695, 5080844, 9301836 ####[address] [place] [address] Basophils/Leukocytes Auto (Bld) [Pure # fraction] 0.1 E9/L Normal 0.0-0.[address] [facility] Comment on above: Order Comment: Order Added by Chris Expert. Performed By: #### 2 504144, 81732686, 3507429, 9237041, 28942902, 9749121, 2434462 ####[address] [place] [address] Eosinophils/100 WBC (Bld) 0.1 % Normal 0.0-8.[address] [facility] Comment on above: Order Comment: Order Added by Chris Expert. Performed By: #### 2 001298, 30220190, 8192100, 0190960, 50890134, 0843006, 4293517 ####[address] [place] [address] Eosinophils/Leukocyte s Auto (Bld) [Pure # fraction] 0.0 E9/L Normal 0.0-0.[address] [facility] Comment on above: Order Comment: Order Added by Chris Expert. Performed By: #### 2 001993, 56382768, 7059064, 9875990, 85009804, 3482291, 1250106 ####[address] [place] [address] Lymphocytes/100 WBC (Bld) 4.1 % Low 14.0-50.[address] [facility] Comment on above: Order Comment: Order Added by Chris Expert. Performed By: #### 2 188793, 02468881, 9768090, 7558801, 08890074, 1380535, 1334467 ####[facility] [address] [place] [address] Lymphocytes/Leukocyte s Auto (Bld) [Pure # fraction] 0.5 E9/L Low 1.0-4.[address] [facility] Comment on above: Order Comment: Order Added by Discern Expert. Performed By: #### 2 166932, 77848809, 1665845, 6052916, 80331318, 1617722, 5751815 ####[address] [place] [address] Monocytes/100 WBC (Bld) 6.1 % Normal 4.0-14.[address] [facility] Comment on above: Order Comment: Order Added by Discern Expert. Performed By: #### 2 946876, 78851394, 5503148, 4818293, 22642727, 5552855, 8459438 ####[address] [address] Monocytes/Leukocytes Auto (Bld) [Pure # fraction] 0.8 E9/L Normal 0.2-1.[address] [facility] Comment on above: Order Comment: Order Added by Discern Expert. Performed By: #### 2 876523, 38880798, 9139186, 2022180, 48835489, 4260563, 0587013 ####[address] [address] Neutrophils/100 WBC (Bld) 89.3 % High 36.0-75.[address] [facility] Comment on above: Order Comment: Order Added by Discern Expert. Performed By: #### 2 662364, 11331579, 6209946, 7544891, 41260867, 5418064, 2028142 ####[address] [place] [address] Neutrophils/Leukocyte s Auto (Bld) [Pure # fraction] 12.1 E9/L High 2.0-7.[address] [facility] Comment on above: Order Comment: Order Added by Discern Expert. Performed By: #### 2 263662, 00819252, 9206797, 7393016, 53369428, 7301939, 1665672 ####[facility] [address] [place] [address] BMPon 06-15-2021 Creatinine [Mass/Vol] 1.3 mg/dL Normal 0.5-1.3 [facility] Comment on above: Performed By: #### 2 427205, 11502228, 7737509, 8498799, 46790129, 9480971, 5687270 ####[facility] [address] [place] [address] Urea nitrogen [Mass/Vol] 18 mg/dL Normal 5-[address] [facility] Comment on above: Performed By: #### 2 894176, 40643951, 4564244, 4213134, 96353640, 5839067, 7104006 ####[facility] [address] [place] [address] Urea nitrogen/Creatinine [Mass ratio] 14 No Units Normal 10-[address] [facility] Comment on above: Performed By: #### 2 474711, 57865804, 9116235, 9341701, 21317967, 1272393, 1027217 ####[facility] [address] [place] [address] Anion gap [Moles/Vol] 12 mmol/L Normal 6-16 [facility] Comment on above: Performed By: #### 2 655541, 23110630, 0743093, 6457739, 39293209, 7998650, 2417701 ####[facility] [address] [place] [address] Calcium [Mass/Vol] 8.6 mg/dL Low 8.9-11.[address] [facility] Comment on above: Performed By: #### 2 663922, 66559962, 5049076, 4466627, 66282347, 3214725, 6589863 ####[facility] [address] [place] [address] Chloride [Moles/Vol] 102 mmol/L Normal 101-111 [facility] Comment on above: Performed By: #### 2 776097, 70243776, 0738814, 7639063, 76376462, 9648749, 4705879 ####[facility] [address] [place] [address] CO2 [Moles/Vol] 24 mmol/L Normal 21-31 [facility] Comment on above: Performed By: #### 2 803744, 68829272, 6880113, 7398576, 37824452, 7071763, 6697548 ####[facility] [address] [place] [address] Glucose [Mass/Vol] 145 mg/dL Normal 55-[address] [facility] Comment on above: Result Comment: If t his glucose result represents a fasting glucose, interpretation should refer to the following reference range: 55-99 mg/dL Performed By: #### 2 722996, 66518645, 8805970, 8786891, 56272089, 1659294, 6268493 ####[facility] [address] [place] [address] Potassium [Moles/Vol] 3.8 mmol/L Normal 3.5-5.3 [facility] Comment on above: Performed By: #### 2 416782, 75631587, 7661271, 7616390, 19955704, 8166800, 1920822 ####[facility] [address] [place] [address] Sodium [Moles/Vol] 134 mmol/L Low 135-[address] [facility] Comment on above: Performed By: #### 2 672110, 03645840, 5631324, 6943615, 09946023, 2133315, 5749442 ####[facility] [address] [place] [address] CBC w/ Auto Diffon 2 Erythrocyte distribution width (RBC) [Ratio] 13.6 % Normal 10.9-14.[address] [facility] Comment on above: Performed By: #### 2 696936, 63395929, 1143607, 9569578, 46720635, 4636613, 3209224 ####[facility] [address] [place] [address] Hematocrit (Bld) [Volume fraction] 37.7 % Normal 37.7-49.[address] [facility] Comment on above: Performed By: #### 2 991223, 96693053, 8808591, 8907385, 76060498, 2997284, 6527483 ####[facility] [address] [place] [address] Hemoglobin (Bld) [Mass/Vol] 12.6 g/dL Low 13.5-17.[address] [facility] Comment on above: Performed By: #### 2 915815, 58656785, 4279540, 3164144, 14721369, 7408090, 2382181 ####[address] [place] [address] MCH (RBC) [Entitic mass] 29.0 pg Normal 27.0-34.[address] [facility] Comment on above: Performed By: #### 2 406757, 41578538, 4284882, 9417980, 40045806, 8023445, 6115551 ####[address] [place] [address] MCHC (RBC) [Mass/Vol] 33.5 g/dL Normal 31.4-36.0 [facility] Comment on above: Performed By: #### 2 133518, 49984011, 4030196, 1966392, 01423518, 2958485, 1071875 ####[address] [place] [address] MCV (RBC) [Entitic vol] 86.6 fL Normal 80.0-100.[address] [facility] Comment on above: Performed By: #### 2 621284, 37244025, 3962674, 8513435, 73818897, 2173886, 7341891 ####[address] [address] Platelet mean volume (Bld) [Entitic vol] 9.5 fL Normal 6.4-10.[address] [facility] Comment on above: Performed By: #### 2 106597, 82819562, 5266596, 7566824, 57171572, 9167555, 2415351 ####[facility] [address] [place] [address] Platelets (Bld) [#/Vol] 189.0 E9/L Normal 150.0-500.[address] [facility] Comment on above: Performed By: #### 2 592636, 53818316, 3212201, 5899165, 62367243, 9832438, 5186075 ####[facility] [address] [place] [address] RBC (Bld) [#/Vol] 4.4 E12/L Normal 4.3-5.[address] [facility] Comment on above: Performed By: #### 2 532072, 28814625, 1058298, 8513311, 83088074, 3752161, 1052409 ####[facility] [address] [place] [address] WBC corrected for nucl RBC Auto (Bld) [#/Vol] 13.5 E9/L High 4.0-11.[address] [facility] Comment on above: Result Comment: Slid e reviewed by ts. Performed By: #### 2 113027, 79226159, 8590879, 3794501, 66820897, 5716347, 0377004 ####[facility] [address] [place] [address] CRPon 06-15-2021 CRP [Mass/Vol] 31.1 mg/dL High <=1.9 [facility] Comment on above: Performed By: #### 2 719196, 23605640, 8042637, 6352718, 86469343, 7049116, 8059549 ####[facility] [address] [place] [address] Consent for Treatmenton Consent for Treatment [id number]#1 .00CD:[address] [facility] D-Dimeron 06-15-2021 Fibrin D-dimer FEU (PPP) [Mass/Vol] 2227 CD:[id number] Abnormal 215-[address] [facility] Comment on above: Result Comment: Resu lts Called To [facility]/ED By KD And Read Back For Confirmation [...] infections Liver cirrhosis Performed By: #### 2 604744, 85927726, 3254861, 8233941, 39993101, 4922765, 7992172 ####[facility] [address] [place] [address] ED Note-Physicianon 06-16-19 ED Note-Physician This 55-year-old white male presented to the emergency room with a complaint of pain in his left foot and ankle as well as lower leg. The patient states that the pain began 4 days ago. Patient suffered a severe fracture of the left ankle in March. It is my understanding that he initially was operated at [facility], that that surgical intervention failed and he underwent subsequent operative intervention by Dr. Hart at [facility] sometime after that. The patient indicates that [...] if the patient could be transferred to [facility] under the hospitalist. He indicates that the hospitalist is Dr. Kenyatta Goldstein. The community health specialist, fazal spoke with the oil house attendant at [facility] who spoke with the hospitalist who gave [...] diagnosis: #1 osteomyelitis left tibia/ankle I provided jhha-ab-evoc evaluation of this patient. I have seen and evaluated the patient and I agree with the physician assistants history, physical examination, diagnostic evaluation, treatment and disposition of this patient. Please note I performed the medical decision making entirely on this patient. I performed the transfer of this patient as well. Normal [facility] Comment on above: Result Comment: Elec tronically Signed By: Ryan Veronica DO.br\Date and Time Signed: 06/15/21 21:33 EST Sed Rate Automatedon 022 Sed Rate Automated 32 mm/hr High 0-[address] [facility] Comment on above: Performed By: #### 2 141310, 48038815, 9997402, 9607474, 06877008, 0777570, 7011853 ####[facility] [address] [place] [address] eGFRon 06-15-2021 GFR/1.73 sq M.predicted among blacks MDRD (S/P/Bld) [Vol rate/Area] mL/min/{1.73_m2} Normal >=[address] [facility] Comment on above: Order Comment: Order added by Discern Expert. Result Comment: eGFR is race adjusted. AA=. Performed By: #### 2 334875, 33382959, 9318996, 5343254, 67524906, 8610440, 9915558 ####[facility] [address] [place] [address] GFR/1.73 sq M.predicted among non-blacks MDRD (S/P/Bld) [Vol rate/Area] 57 mL/min/1.73 m2 Low >=[address] [facility] Comment on above: Order Comment: Order added by Discern Expert. 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 Kidney failure is indicated at less than 15 mL/min/1.73m2. Performed By: #### 2 724614, 10271473, 6701435, 2255471, 00125733, 8012546, 6627785 ####[facility] [address] [place] [address] Consenton 06-03-2021 Consent [id number] .00CD:[address] [facility] Registrationon 06-03-2021 Registration [id number] .00CD:[address] [facility] Basic Metabolic Panlon 04-28 Anion gap molar conc 11 mmol/L Normal 9-18 [facility] Calcium mass conc 9.0 mg/dL Normal 8.6-10.0 [facility] Chloride molar conc 101 mmol/L Normal 97-105 [facility] CO2 molar conc 29 mmol/L Normal 22-30 [facility] Creatinine mass conc 1.05 mg/dL Normal 0.73-1.22 [facility] eGFR- Amer. >60 Normal [facility] ospital GFR/1.73 sq M predicted among non-blacks MDRD vol rate/area (S/P/Bld) mL/min/{1.73_m2} Normal [facility] Comment on above: Result Comment: [...] Glucose mass conc 134 mg/dL High 74-99 [facility] Comment on above: Result Comment: The [place] [employer] (ADA) provides guidance for cutoff [...] Standards of Medical Care in Diabetes 2016, [place] [employer]. Diabetes Care. 2016.39(Suppl 1). Potassium molar conc 4.6 mmol/L Normal 3.7-5.1 [facility] Sodium molar conc 141 mmol/L Normal 136-144 [facility] Urea nitrogen mass conc 18 mg/dL Normal 9-24 [facility] Anion gap molar conc 9 mmol/L Normal 9-18 [facility] Calcium mass conc 9.1 mg/dL Normal 8.6-10.0 [facility] Chloride molar conc 102 mmol/L Normal 97-105 [facility] CO2 molar conc 28 mmol/L Normal 22-30 [facility] Creatinine mass conc 1.08 mg/dL Normal 0.73-1.22 [facility] eGFR- Amer. >60 Normal [facility] o[facility]ital GFR/1.73 sq M predicted among [...] Glucose mass conc 148 mg/dL High 74-99 [facility] milla Comment on above: Result Comment: The [place] Diabetes [employer] (ADA) provides guidance for cutoff [...] Standards of Medical Care in Diabetes 2016, [place] [employer]. Diabetes Care. 2016.39(Suppl 1). Potassium molar conc 5.5 mmol/L High 3.7-5.1 [facility] Sodium molar conc 139 mmol/L Normal 136-144 [facility] Urea nitrogen mass conc 19 mg/dL Normal 9-24 [facility] CBCon 04-28-2018 Absolute nRBC <0.01 Normal <0.01 [facility] Erythrocyte distribution width Ratio (RBC) 12.2 % Normal 11.5-15.0 [facility] Hematocrit Volume Fraction (Bld) 37.8 % Low 39.0-51.0 [facility] Hemoglobin mass conc (Bld) 12.7 g/dL Low 13.0-17.0 [facility] MCH Entitic mass (RBC) 29.7 pG Normal 26.0-34.0 [facility] MCHC mass conc (RBC) 33.6 g/dL Normal 30.5-36.0 [facility] MCV Entitic volume (RBC) 88.3 fL Normal 80.0-100.0 [facility] Platelet mean volume Entitic volume (Bld) 11.3 fL Normal 9.0-12.7 [facility] Platelets #/vol (Bld) 214 10*3/uL Normal 150-400 [facility] RBC #/vol (Bld) 4.28 10*6/uL Normal 4.20-6.00 [facility] spital WBC #/vol (Bld) 18.24 10*3/uL High 3.70-11.00 [facility] ospital NURSING PROGon 04-28-2018 Protein mass conc HNO ID: [id number] Author: Scarlet DavisRn) ABDULAZIZ Morton Service: (none) Author Type: Registered Nurse Type: Nursing Progress Note Filed: 04/28/2018 9:08 PM Note Text: Nursing Progress Note Patient Name: Sanrda Boss Patient Location: [facility]/ Daily Note: OK to be discharged to home. IV removed. Discharge instructions given. Questions answered. Discharged home by w/c with family. This note was completed by: Scarlet Morton RN Normal [facility] Protein mass conc HNO ID: [id number] Author: Brittany DavisRn) ABDULAZIZ Cardoza Service: Nursing Author Type: Registered Nurse Type: Nursing Progress Note Filed: 04/28/2018 6:44 AM Note Text: Nursing Progress Note Patient Name: Sandra Boss Patient Location: [facility]/ Daily Note: Ambulated to bathroom with assistance. patient unable to void, c/o lower abdomen feeling tight . bladder scan showed > 999 cc urine. Patient straight cathed for 1025 cc clear yellow urine. This note was completed by: Brittany Cardoza RN [facility] PLAN OF CAREon 04-28-2018 PLAN OF CARE HNO ID: [id number] Author: Manuel Angeles (Ingredient Handler) Service: (none) Author Type: (none) Type: Plan of Care Filed: 04/28/2018 3:11 PM Note Text: PHARMACY BEDSIDE DELIVERY SERVICE Patient Name: Sandra Boss The marked outpatient medications were Filled at: [facility] and delivered to the patient's bedside to [...] mg tablet Commonly known as: LARISA Angeles (Ingredient Handler) PAGER: [email or web address] April 28, 2018 3:10 PM [facility] PLAN OF CARE HNO ID: [id number] Author: Amparo Parra (Pharmacist) Service: Pharmacy Author [...] a call to the physician. Krishan Gonzalez (Patient Navigator) April 28, 2018 1:41 PM Preceptor Addendum: The above case has been reviewed and discussed with the bilingual kindergarten teacher. I agree with the assessment/plan described by [...] oxyCODONE IR 5 mg immediate release tablet [facility] PLAN OF CARE HNO ID: [id number] Author: Manuel Angeles (Foodlve) Service: (none) Author Type: (none) Type: Plan of Care Filed: 04/28/2018 1:03 PM Note Text: Pharmacy Discharge Medication Service: This patient has elected to receive their discharge prescriptions through the [facility] Bedside Prescription Delivery program. The prescriptions are currently being processed. A follow-up note will be entered once the prescriptions have been filled and delivered to the patient. Please contact me with any questions or updates to the patient's discharge medications. Manuel Angeles (Foodlve) DCT Contact Info: [facility] PLAN OF CARE HNO ID: [id number] Author: Manuel Angeles (Foodlve) Service: (none) Author Type: (none) Type: Plan of Care Filed: 04/28/2018 1:02 PM Note Text: INSERTER BEDSIDE DELIVERY SURVEY 1. Patient to use [facility] Bedside Delivery - YES 2. If fax, patient would like us to fax prescriptions to Pharmacy of choice a. Pharmacy: b. Location: c. Phone: 3. Insurance card on file - YES 4. Credit card for payment - N/A Normal [facility] PROGRESSon 04-28-2018 Protein mass conc HNO ID: [id number] Author: Hank De Souza Service: Hospital Medicine Author Type: Physician Type: Progress Notes Filed: 04/28/2018 10:58 AM Note Text: SERVICE DATE: 04/28/2018 SERVICE TIME: 10:58 AM HOSPITAL MEDICINE PROGRESS NOTE NIGHT AND WEEKEND COVERAGE: Days: [phone], please page me for patient issues. Nights: 2022-7247, please page [facility] Hospitalist Night coverage pager [phone] HPI Patient doing well. Is able to [...] VTE Prophylaxis/Anticoagu lants 04/27/181899 pneumatic compression stockings (fl,oh) 04/27/181899 graduated compression stockings (fl,oh) 04/27/181899 graduated compression stockings (fl,oh) 04/27/181899 activity - mobilize patient (fl,oh) 04/27/18 190 activity - mobilize patient (fl,oh) 04/27/181899 activity - mobilize patient (fl,oh) 04/27/18 1315 pneumatic compression stockings (fl,oh) 04/27/18 131 pneumatic compression stockings (fl,oh) VTE Prophylaxis: VTE prophylaxis appropriate Plan of care discussed with: Patient and RN at bedside SIGNATURE: Hank De Souza MD PATIENT NAME: Sandra Boss DATE: April 28, 2018 TIME: 10:58 AM PAGER/CONTACT #: [phone] [facility] Protein mass conc HNO ID: [id number] Author: Christel Joseph) Veronica Service: Orthopaedic Surgery Author Type: Physician Cut Off Machine Helper Type: Progress Notes Filed: 04/28/2018 7:03 [...] yet, but planning for discharge home with [facility] today if clear with PT. Objective VITAL [...] hyperkalemia Case Management for discharge planning-Home with [facility] today if clear with PT ACTIVE PROBLEM LIST Osteoarthritis of Right Hip Pain in Right Hip Greater Trochanteric Bursitis of Right Hip Primary Osteoarthritis of Right Hip Tear of Right Gluteus Minimus Tendon Osteoarthritis of Left Hip Current Smoker Medication and Non-Pharmacologic VTE Prophylaxis/Anticoagu lants 04/27/18 1900 pneumatic compression stockings (ri,oh) 04/27/18 1900 graduated compression stockings (ri,oh) 04/27/18 1900 graduated compression stockings (ri,oh) 04/27/18 1900 activity - mobilize patient (ri,oh) 04/27/18 1900 activity - mobilize patient (ri,oh) 04/27/18 1900 activity - mobilize patient (ri,oh) 04/27/18 1315 pneumatic compression stockings (ri,oh) 04/27/18 1315 pneumatic compression stockings (ri,oh) VTE Prophylaxis: VTE prophylaxis appropriate POST OPERATIVE COMPLICATIONS: Complicated by: uneventful/none SIGNATURE: Christel Martin PA-C PATIENT NAME: Sandra Boss DATE: April 28, 2018 TIME: 7:00 AM PAGER/CONTACT #: [phone] [facility] PT EDon 04-28-2018 PT ED HNO ID: [id number] Author: Amparo Parra (Pharmacist) Service: Pharmacy Author [...] topic Outcomes not met: N/A Krishan Gonzalez (Patient Navigator) Preceptor Addendum: The above case has been reviewed and discussed with the bilingual kindergarten teacher. I agree with the assessment/plan described by the student. Changes and additions to the details in the above note are indicated by italics and . Amparo Parra, Pharmacist [facility] THERAPY NTon 04-28-2018 THERAPY NT HNO ID: [id number] Author: Judy (Ot/L) Derick Service: Occupational Therapy Author Type: Occupational Therapist Type: Therapy (PT/OT/Speech/Resp) Filed: 04/28/2018 4:11 PM Note Text: Occupational Therapy Evaluation SERVICE DATE: 04/28/2018 SERVICE TIME: 1034 to 1059 ROOM: [place] [address] Recommended Discharge Disposition: Home Recommended Discharge Equipment: [...] Pt. Will have support upon DC (pt.'s fiancee present, appears supportive). Pt. Denies any homegoing [...] l symptoms and signs-other Interventions Provided: Evaluation;Self Mcc Management (16384) $ Evaluation-Low (84094) Billed Units: 1 unit Self Mcc Management (14669) Treatment Minutes: 10 1 unit Skilled Intervention(s): [...] relating to: -functional transfers (use of leg singing teacher to assist surgical leg in/out of bed, [...] of tub or shower seat/bench w/ leg singing teacher, importance of grab bars and not bathing [...] pt. In LB AE including sock aide, home health outreach coordinator, long handled shoe horn and long handled [...] Lives With: Significant Other (fiancee) 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 Entry To Home: Stairs;With Rail Number Of Stairs Into Home: 3 Number Of Stairs To Bed/Bath: 1st floor bed and bath Tub/Shower Type: WIS with shower chair Laundry: loren neff completes Equipment Owned: Long Handled Shoe Horn;Case Packer And Sealer (quad cane) Prior Functional Level: Within Functional [...] DATE: April 28, 2018 TIME: 4:09 PM [facility] THERAPY NT HNO ID: [id number] Author: Kate Jordan (Pt) Venkat Service: Physical Therapy Author Type: Physical Therapist Type: Therapy (PT/OT/Speech/Resp) Filed: 04/28/2018 2:59 PM Note Text: Physical Therapy Treatment SERVICE DATE: 04/28/2018 SERVICE TIME: 1315 to 1340 ROOM: [place] [address] Recommended Discharge Disposition: Home PT Recommended Discharge [...] gait and mobility-other Interventions Provided: Gait Training (30881);Therapeutic Exercise (05739) Therapeutic Exercise (74838) Treatment Minutes: 8 1 unit Skilled Intervention(s): Instruction in therapeutic exercise Verbal and tactile cuing provided Seated LAQ and HS 2x10 B LE, Pt using sheet to A with full extension L knee during LAQ Gait Training (58997) Treatment Minutes: 15 1 unit Skilled Intervention(s): [...] Lives With: Significant Other (fiancee) 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 Entry To Home: Stairs;With Rail Number Of Stairs Into Home: 3 Number Of Stairs To Bed/Bath: 1st floor bed and bath Tub/Shower Type: WIS with shower chair Laundry: lulucaylachantalecyndiSajan daleemlanie completes Equipment Owned: (quad) Prior Functional Level: [...] DATE: April 28, 2018 TIME: 2:54 PM [facility] THERAPY NT HNO ID: [id number] Author: Kate Jordan (Pt) Venkat Service: Physical Therapy Author Type: Physical Therapist Type: Therapy (PT/OT/Speech/Resp) Filed: 04/28/2018 12:37 PM Note Text: Physical Therapy Evaluation SERVICE DATE: 04/28/2018 SERVICE TIME: 734 ([id number] eval initiated) to 929 ([id number] EVAL, GAIT, THER EX) ROOM: [place] [address] Recommended Discharge Disposition: Home PT Recommended Discharge [...] and mobility-other Interventions Provided: Evaluation;Therapeuti c Exercise (39210);Therapeutic Activity (25454);Gait Training (69675) $ Evaluation-Low (18012) Billed Units: 1 unit Therapeutic Exercise (39703) Treatment Minutes: 10 1 unit Skilled Intervention(s): Instruction in therapeutic exercise Verbal and tactile cuing provided Pt performed in supine position: AP, QS, GS x 10 B LE, pt instructed to do every hour while awake on their own. HS, hip ABD, SAQ x 10 B LE. Pt instructed on using a sheet to A with L LE. Therapeutic Activity (75643) Treatment Minutes: 5 Skilled Intervention(s): Instructed patient in supine to sit pushing with upper extremities to sit up Gait Training (37275) Treatment Minutes: 10 1 unit Skilled Intervention(s): [...] CODE: PT 6 Clicks Score: 23 (04/28/18 1010) Based on clinical assessment and the score [...] Home Environment Patient Lives With: Significant Other (aishwarya) 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 Entry To Home: Stairs;With Rail Number Of Stairs Into Home: 3 Number Of Stairs To Bed/Bath: 1st floor bed and bath Tub/Shower Type: WIS with shower chair Laundry: loren neff completejosy Equipment Owned: (quad) Prior Functional Level: Within [...] DATE: April 28, 2018 TIME: 12:34 PM [facility] ANES PREOPon 04-27-2018 ANES PREOP HNO ID: [id number] Author: Cassandra Slater Service: Anesthesiology Author Type: Physician Type: Anesthesia PreOp Filed: 04/27/2018 1:46 PM Note Text: ANESTHESIOLOGY DAY OF SURGERY NOTE SERVICE DATE: 04/27/2018 SERVICE TIME: 1344 : 1965 Procedure(s) (LRB): ARTHROPLASTY HIP (Left) [...] Diagnosis Date - OA (osteoarthritis) of hip 2017 - Tobacco use 1 ppd x 15 years, patient down to 1-2 cigarettes a day now PAST SURGICAL HISTORY Procedure Laterality Date - APPENDECTOMY 1989's - PAST SURGICAL HISTORY OF Right 06/2017 [...] 2 g INTRAVENOUS Pre-Op Once Christel (Chau) Veronica lactated ringers infusion 5-30 mL/hr INTRAVENOUS CONTINUOUS Christel (Chau) Veronica Last Rate: 30 mL/hr at 04/27/18 1336 30 mL/hr at 04/27/18 1336 scopolamine 1 mg over 3 days 1 Patch (TRANSDERM-SCOP) 1 Patch TRANSDERMAL q 72 HR Christel (Chau) Viniciosni 1 Patch at 04/27/18 1326 And scopolamine - REMOVE PATCH OTHER q 72 HR Christel (Chau) Veronica And scopolamine - VERIFY patch OTHER q 8 H Christel (Chau) Veronica Allergies: ALLERGIES No Known Allergies DOS EXAM: [...] April 27, 2018 TIME: 1:45 PM CSN: [id number] Normal [facility] Basic Metabolic Panlon 04-27 Anion gap molar conc 10 mmol/L Normal 9-18 [facility] Calcium mass conc 9.2 mg/dL Normal 8.6-10.0 [facility] spital Chloride molar conc 101 mmol/L Normal 97-105 [facility] CO2 molar conc 27 mmol/L Normal 22-30 [facility] Creatinine mass conc 0.96 mg/dL Normal 0.73-1.22 [facility] eGFR- Amer. >60 Normal [facility] ospital GFR/1.73 sq M predicted among [...] Glucose mass conc 126 mg/dL High 74-99 [facility] spital Comment on above: Result Comment: The [place] Diabetes Association (ADA) provides guidance for cutoff [...] Standards of Medical Care in Diabetes 2016, [place] [employer]. Diabetes Care. 2016.39(Suppl 1). Potassium molar conc 5.2 mmol/L High 3.7-5.1 [facility] Sodium molar conc 138 mmol/L Normal 136-144 [facility] spital Urea nitrogen mass conc 12 mg/dL Normal 9-24 [facility] CBCon 04-27-2018 Absolute nRBC <0.01 Normal <0.01 [facility] Erythrocyte distribution width Ratio (RBC) 12.2 % Normal 11.5-15.0 [facility] Hematocrit Volume Fraction (Bld) 38.8 % Low 39.0-51.0 [facility] Hemoglobin mass conc (Bld) 13.5 g/dL Normal 13.0-17.0 [facility] MCH Entitic mass (RBC) 30.3 pG Normal 26.0-34.0 [facility] MCHC mass conc (RBC) 34.8 g/dL Normal 30.5-36.0 [facility] MCV Entitic volume (RBC) 87.2 fL Normal 80.0-100.0 [facility] Platelet mean volume Entitic volume (Bld) 10.7 fL Normal 9.0-12.7 [facility] Platelets #/vol (Bld) 192 10*3/uL Normal 150-400 [facility] RBC #/vol (Bld) 4.45 10*6/uL Normal 4.20-6.00 [facility] spital WBC #/vol (Bld) 13.46 10*3/uL High 3.70-11.00 [facility] ospital HISTORY PHYSICALon 9 HISTORY PHYSICAL HNO ID: [id number] Author: Christel Martin (Pa) Service: Orthopaedic Surgery Author Type: Physician Cut Off Machine Helper Type: HANDP Filed: 04/27/2018 1:20 PM [...] April 27, 2018 TIME: 1:20 PM PAGER: [facility] NURSING PROGon 04-27-2018 Protein mass conc HNO ID: [id number] Author: Mervat Enamorado (Rn) ABDULAZIZ Morton Service: (none) Author Type: Registered Nurse Type: Nursing Progress Note Filed: 04/27/2018 8:58 PM Note Text: Nursing Progress Note Patient Name: Sandra Boss [facility] Daily Note:To room 413 from PACU. Pt [...] note was completed by: Mervat Morton RN [facility] OPERATIVE NOon 04-27-2018 OPERATIVE NO HNO ID: [id number] Author: Suman Nguyen Jr. Service: Orthopaedic Surgery Author Type: Physician Type: Operative Report Filed: 04/27/2018 5:42 PM Note Text: [facility] OPERATIVE REPORT PATIENT NAME: Sandra Boss AGE: [age] year old LOG ID: [id number] Surgery Date: 04/27/2018 SURGEON: Suman Nguyen M.D. HIDE GRADER: Christel Sprague PA-C, her assistance consisted of [...] performed. The hip was dislocated. The boxing inspector osteotome was utilized to lateralize the starting [...] DATE: April 27, 2018 TIME: 5:39 PM [facility] PT EDon 04-27-2018 PT ED HNO ID: [id number] Author: Samantha (Rn) Niki, RN Service: Nursing Author Type: [...] Signed By: Samantha Prince, RN In Department: [facility] SURGERY Normal [facility] SURGICAL PATHOLOGYon 019 SURGICAL PATHOLOGY Specimen originated from [facility] Specimen #: [id number] Submitting Physician: SUMAN NGUYEN MD FINAL DIAGNOSIS Femoral head, left, arthroplasty - Degenerative joint disease. MARC/HANNA/val 05/02/18 Junaid Nieto M.D. (Electronic Signature) ____ [...] seen. Minimally attached soft tissue is seen. Parking Lot Manager sections are submitted in the following cassettes: A1 soft tissue; A2 bone following decalcification. TN/dcr 04/28/2018 Gross examination performed at [facility], [address] [place] [address] Date of Report: 05/03/2018 Date of Procedure: 04/27/2018 Date of Receipt: 04/27/2018 Submitted by: SUMAN NGUYEN MD Location: [facility] Diagnostic interpretation performed at [facility], [address] [place] [address]. [facility] Comment on above: Performed By: [...] IMPRESSION: Left total hip prosthesis in place. Retail Equipment Associate: PSCB Transcribe Date/Time: Apr 27 2018 6:16P Dictated by : MANISH POLLARD MD This examination was interpreted and the report reviewed and electronically signed by: MANISH POLLARD MD on Apr 27 2018 6:17PM EST [id number] [facility] NURSING PROGon 04-23-2018 Protein mass conc HNO ID: [id number] Author: Amparo DavisRn) Magnus RN Service: (none) Author Type: Registered Nurse Type: Nursing Progress Note Filed: 04/23/2018 10:45 AM Note Text: PACC Nurse Progress Note History AND Physical: PACC Visit Date: 04/20 Original HANDP Date: N/A ED visit Date: N/A Outside HANDP Scanned Date: N/A Labs Within Last 6 Months: CBC: Date 04/20 BMP/CMP: Date 04/20 PT: Date 04/20 UA: Date 04/20 Urine C+S: Date 04/20 STAAMP: Date 04/02 TYPE AND SCREEN: [...] Agudelo RN April 23, 2018 10:37 AM [facility] HISTORY PHYSICALon HISTORY PHYSICAL HNO ID: [id number] Author: Kate Reyna Service: (none) Author Type: Physician Cut Off Machine Helper Type: HANDP Filed: 04/20/2018 9:07 AM [...] fevers. Neuro: No history of TIA's, stroke, FOLDER OPERATOR tumor, impaired sensorium, hemiplegia, paraplegia or quadraplegia. No neurological symptoms or problems. Respiratory: +Current smoker Negative for Asthma, Current cough, Dyspnea, URI < 2 weeks Cardiovascular: No history of HTN requiring medication, no history of angina, CHF, NV, cardiac surgery or stents. Denies rest pain, [...] PENDING labs EKG 04/20/18, (pending review from examination grader/physicia n) NSR, normal ECG All in Epic [...] 20, 2018 TIME: 8:50 AM PAGER/CONTACT #: [facility] Type and SCR (30D)on 019 ABO/RH(D) Positive [facility] HOSPon 04-02-2018 HOSP Patient:Sandra Boss [...] 45.1 % 04/20/2018 51.0 39.0 Progress Notes ([facility]): RT Jeovany 04/02/2018 9:49 AM Signed Radiology [...] 04/02/2018 01:25 PM Modules accepted: Orders Normal [facility] Basic Metabolic Panlon 07-02 Anion gap molar conc 10 mmol/L Normal 9-18 [facility] Calcium mass conc 8.7 mg/dL Normal 8.6-10.0 [facility] spital Chloride molar conc 103 mmol/L Normal 97-105 [facility] CO2 molar conc 25 mmol/L Normal 22-30 [facility] Creatinine mass conc 0.95 mg/dL Normal 0.73-1.22 [facility] eGFR- Amer. >60 Normal [facility] ospital GFR/1.73 sq M predicted among [...] Glucose mass conc 127 mg/dL High 74-99 [facility] spital Comment on above: Result Comment: The [place] Diabetes Association (ADA) provides guidance for cutoff [...] Standards of Medical Care in Diabetes 2016, [place] [employer]. Diabetes Care. 2016.39(Suppl 1). Potassium molar conc 4.6 mmol/L Normal 3.7-5.1 [facility] Sodium molar conc 138 mmol/L Normal 136-144 [facility] spital Urea nitrogen mass conc 14 mg/dL Normal 9-24 [facility] CONSULT PROGon 07-02-2017 Protein mass conc HNO ID: [id number] Author: Kacy Canela Service: Hospital Medicine Author Type: Physician Type: Consult Progress Note Filed: 07/02/2017 10:07 AM Note Text: Hospital Medicine Noted plans by primary service for discharge. BMP unremarkable. VSS Outpatient multivitamin continued on discharge med rec. Stable for discharge home from medical perspective. Will sign off. Please call with questions. Kacy Canela D.O. Staff, Department of Hospital Medicine Pager [phone] [facility] PLAN OF CAREon 07-02-2017 PLAN OF CARE HNO ID: [id number] Author: Jane DavisFoodlve) Service: (none) Author Type: Cottonseed Meat Presser Type: Plan of Care Filed: 07/02/2017 4:17 PM Note Text: PHARMACY BEDSIDE DELIVERY SERVICE Patient Name: Sandra Boss The marked outpatient medications were Filled at: [facility] and delivered to the patient's bedside to [...] tablet Commonly known as: ULTRAM Jane Mccord (Foodlve) PAGER: lucretia July 02, 2017 4:17 PM [facility] PLAN OF CARE HNO ID: [id number] Author: Jane DavisFoodlve) Service: (none) Author Type: Cottonseed Meat Presser Type: Plan of Care Filed: 07/02/2017 9:26 AM Note Text: Pharmacy Discharge Medication Service: This patient has elected to receive their discharge prescriptions through the [facility] Bedside Prescription Delivery program. The prescriptions are currently being processed. A follow-up note will be entered once the prescriptions have been filled and delivered to the patient. Please contact me with any questions or updates to the patient's discharge medications. Jane DavisFoodlve) DCT Contact Info: [facility] PLAN OF CARE HNO ID: [id number] Author: Jane DavisFoodlve) Service: (none) Author Type: Cottonseed Meat Presser Type: Plan of Care Filed: 07/02/2017 9:26 AM Note Text: INSERTER BEDSIDE DELIVERY SURVEY 1. Patient to use [facility] Bedside Delivery - YES 2. If fax, patient would like us to fax prescriptions to Pharmacy of choice a. Pharmacy: b. Location: c. Phone: 3. Insurance card on file - YES 4. Credit card for payment - NO [facility] PLAN OF CARE HNO ID: [id number] Author: Brittany (Rn) ABDULAZIZ Albert Service: Care Management Author Type: [...] Gluteus Minimus Tendon Attendees Present at Rounds: Coke Oven Patcher: y Pharmacy: y Physical Therapy: y Staff [...] July 02, 2017 TIME: 8:44 AM CSN: [id number] [facility] PROGRESSon 07-02-2017 Protein mass conc HNO ID: [id number] Author: Christel Sprauge (Pa) Service: Orthopaedic Surgery Author Type: Physician Cut Off Machine Helper Type: Progress Notes Filed: 07/02/2017 7:48 [...] 02, 2017 TIME: 7:45 AM PAGER/CONTACT #: [phone] [facility] THERAPY NTon 07-02-2017 THERAPY NT HNO ID: [id number] Author: Kate Jordan (Pt) Venkat Service: Physical Therapy Author Type: Physical Therapist Type: Therapy (PT/OT/Speech/Resp) Filed: 07/02/2017 3:45 PM Note Text: Physical Therapy Evaluation SERVICE DATE: 07/02/2017 SERVICE TIME: 1435 to 1458 ROOM: [place] [address] Recommended Discharge Disposition: Home Recommended Discharge Disposition [...] Diagnosis: Reduced mobility-other Interventions Provided: Evaluation;Gait Training (04484) $ Evaluation-Low (06870) Billed Units: 1 unit Gait Training (65563) Treatment Minutes: 8 1 unit Skilled Intervention(s): [...] CODE: PT 6 Clicks Score: 24 (07/02/17 1435) Mobility: Walking and Moving Around Current Status (G8978): (07/02/17 1435) Mobility: Walking and Moving Around Goal Status (G8979): (07/02/17 143) Mobility: Walking and Moving Around Discharge Status (G8980): (07/02/17 143) Based on clinical assessment and the score [...] Patient Lives With: Significant Other 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 Entry To Home: Stairs;With Rail Number Of [...] 2017 TIME: 3:41 PM PAGER/CONTACT #: [phone] [facility] ANES Luan 07-01-2017 ANES POST HNO ID: [id number] Author: Cassandra Slater Service: Anesthesiology Author Type: Physician Type: Anesthesia PostOp Filed: 07/01/2017 6:42 PM Note Text: POST ANESTHESIA EVALUATION NOTE SERVICE DATE: 07/01/2017 SERVICE TIME: 1840 : 1965 Vitals: 07/01/17 1337 07/01/171824 Temp: 36.6 ?C (97.9 ?F) 36.2 ?C [...] 01, 2017 TIME: 6:41 PM PAGER/CONTACT #: [phone] [facility] ANES PREOPon 07-01-2017 ANES PREOP HNO ID: [id number] Author: Cassandra Slater Service: Anesthesiology Author Type: [...] July 01, 2017 TIME: 3:51 PM CSN: [id number] [facility] CONSULTon 07-01-2017 CONSULT HNO ID: [id number] Author: Adalgisa Lovett Service: Hospital Medicine Author [...] DATE: July 01, 2017 TIME: 9:53 PM [facility] HISTORY PHYSICALon 8 HISTORY PHYSICAL HNO ID: [id number] Author: Christel Sprague (Pa) Service: Orthopaedic Surgery Author Type: Physician Cut Off Machine Helper Type: HANDP Filed: 07/01/2017 1:38 PM [...] July 01, 2017 TIME: 1:38 PM PAGER: Normal [facility] NURSING PROGon 07-01-2017 Protein mass conc HNO ID: [id number] Author: Brooke DavisRn) ABDULAZIZ Zuniga Service: Nursing Author Type: Registered Nurse Type: Nursing Progress Note Filed: 07/01/2017 8:28 PM Note Text: Nursing Progress Note Patient Name: Sandra Boss Patient Location: [place] [address]/[facility] Daily Note: Pt to rm 506 via bed from PACU. Pt awake AND alert. Resps even AND unlabored. Dressing to right hip dry AND intact. Denzel wrap to right leg. Abduction pillow in place. Good pedal pulses. Pt states still with some numbness AND tingling to lower right leg. Feels burning to right thigh area. This note was completed by: Brooke Zuniga RN Normal [facility] OPERATIVE NOon 07-01-2017 OPERATIVE NO HNO ID: [id number] Author: Suman Nguyen Jr. Service: Orthopaedic Surgery Author Type: Physician Type: Operative Report Filed: 07/06/2017 1:59 PM Note Text: [facility] - Operative Report SANDRA BOSS Lani : 1965 AGE: 51 SEX: M CSN: [id number] [facility] ARE[facility]: [facility] LOCATION: [facility] ATTENDING PHYSICIAN: Suman Nguyen M.D. DATE OF [...] the abductor muscles. SURGEON: Suman Nguyen M.D. HIDE GRADER: Christel Sprague PA-C. Her assistance consisted of [...] to the bone, but it was repaired [id number] with the remnant of the intact portion of the gluteus medius. At this point in time, utilizing a KathyNaurex whipstitch, the 5.0 FiberTape was run up [...] of the gluteus medius was then reinforced [id number] with the intact portion of the trochanter [...] He will wear a hip abduction orthosis cissp 3 months. He will be weightbearing as tolerated with that. He will receive appropriate pain medications and 24 hours of appropriate antibiotic coverage. Suman Nguyen M.D. Orthopaedic Surgery JG:[id number] [facility] PT EDon 07-01-2017 PT ED HNO ID: [id number] Author: Kimber DavisRn) Alla RN Service: (none) Author Type: Registered Nurse Type: Patient Education Filed: 07/01/2017 6:41 PM Note Text: Pt tolerating fluids. Talking with family at bedside. Will continue to monitor patient. [facility] PT ED HNO ID: [id number] Author: Veronica DavisRn) ABDULAZIZ Lang Service: Nursing [...] Signed By: Veronica Lang RN In Department: [facility] SURGERY [facility] NURSING PROGon 06-30-2017 Protein mass conc HNO ID: [id number] Author: Winnie DavisRn) ABDULAZIZ Kraft Service: Neurosurgery [...] Kraft RN June 30, 2017 2:07 PM [facility] HOSPon 06-29-2017 HOSP Patient:Sandra Boss [...] for the following basenames: K,HCT Progress Notes ([facility]): Kenzie Enamorado [employer] 06/29/2017 10:41 AM Signed Called patient with date, time and location for pre admission testing scheduled on 06/2017 at the [facility]. Left message for patient to return my call to confirm receipt of message. Progress Notes ([facility]): Suman Nguyen Jr, MD 06/26/2017 5:19 PM Signed Ortho Hip Follow Up Note Narrative [place]: [place] [id number] [facility] [address] PCP: Rio Alanis MD === IMPRESSION/PLAN: Impressions [...] 06/29/2017 08:03 AM Modules accepted: Orders Normal [facility] Vital Signs Date Time Vital Sign Value Performing Clinician Facility 06-20-2024 09:21-0400 Body height 182.88 cm Clare Brandt DO Work Phone: [facility] 06-20-2024 09:21-0400 Body mass index (BMI) [Ratio] 23.3 kg/m2 Clare Brandt DO Work Phone: [facility] 06-20-2024 09:21-0400 Body temperature 98.2 [degF] Clare Brandt DO Work Phone: [facility] 06-20-2024 09:21-0400 Body weight 78.01 kg Clare Brandt DO Work Phone: [facility] 06-20-2024 09:21-0400 Diastolic blood pressure 80 mm[Hg] Clare Brandt DO Work Phone: [facility] 06-20-2024 09:21-0400 Heart rate 78 /min Clare Brandt DO Work Phone: [facility] 06-20-2024 09:21-0400 SaO2% (BldA) [Mass fraction] 97 % Clare Brandt DO Work Phone: [facility] 06-20-2024 09:21-0400 Systolic blood pressure 110 mm[Hg] Clare Ramirezley DO Work Phone: [facility] 05-02-2024 11:43-0500 Diastolic blood pressure 80 mm[Hg] [facility] 05-02-2024 11:43-0500 Heart rate 102 /min [facility] 05-02-2024 11:43-0500 Heart rate 92 /min Clare Brandt DO Work Phone: [facility] 05-02-2024 11:43-0500 SaO2% (BldA) [Mass fraction] 96 % [facility] 05-02-2024 11:43-0500 Systolic blood pressure 112 mm[Hg] [facility] 05-02-2024 11:26-0500 Body height 182.88 cm [facility] 05-02-2024 11:26-0500 Body mass index (BMI) [Ratio] 22.1 kg/m2 [facility] 05-02-2024 11:26-0500 Body weight 73.93 kg [facility] 04-21-2024 10:38-0500 SaO2% (BldA) [Mass fraction] 98 % Heriberto Carrera MD Work Phone: [facility] 04-21-2024 10:35-0500 Body height 182.9 cm Heriberto Carrera MD Work Phone: [facility] 12-31-2022 09:32-0400 SaO2% (BldA) [Mass fraction] 98 % Heriberto Carrera MD Work Phone: [facility] 12-31-2022 09:30-0400 Body height 182.9 cm Heriberto Carrera MD Work Phone: [facility] 12-31-2022 09:30-0400 Body weight 72.12 kg Heriberto Carrera MD Work Phone: [facility] 12-31-2022 09:30-0400 Diastolic blood pressure 61 mm[Hg] Heriberto Carrera MD Work Phone: [facility] 12-31-2022 09:30-0400 Heart rate 61 /min Heriberto Carrera MD Work Phone: [facility] 12-31-2022 09:30-0400 Systolic blood pressure 101 mm[Hg] Heriberto Carrera MD Work Phone: [facility] 07-16-2022 13:43-0400 SaO2% (BldA) [Mass fraction] 95 % Heriberto Carrera MD Work Phone: [facility] 07-16-2022 13:41-0400 Diastolic blood pressure 91 mm[Hg] Heriberto Carrera MD Work Phone: [facility] 07-16-2022 13:41-0400 Systolic blood pressure 120 mm[Hg] Heriberto Carrera MD Work Phone: [facility] 07-16-2022 13:38-0400 Heart rate 65 /min Heriberto Carrera MD Work Phone: [facility] 04-21-2022 14:30-0500 Body height 179.07 cm Andi Eason Other [email or web address] Other 04-21-2022 14:30-0500 Body temperature 97.1 [degF] Andi Eason Other [email or web address] Other 04-21-2022 14:30-0500 Diastolic blood pressure 82 mm[Hg] Andi Eason Other [email or web address] Other 04-21-2022 14:30-0500 Systolic blood pressure 129 mm[Hg] Andi Eason Other [email or web address] Other 12-23-2021 14:15-0400 Body height 179.07 cm Andi Eason Other [email or web address] Other 12-23-2021 14:15-0400 Body mass index (BMI) [Ratio] 23.34 kg/m2 Andi Eason Other [email or web address] Other 12-23-2021 14:15-0400 Body temperature 98.3 [degF] Andi Eason Other [email or web address] Other 12-23-2021 14:15-0400 Body weight 74.84 kg Andi Eason Other [email or web address] Other 12-23-2021 14:15-0400 Diastolic blood pressure 81 mm[Hg] Andi Eason Other [email or web address] Other 12-23-2021 14:15-0400 Systolic blood pressure 120 mm[Hg] Andi Eason Other [email or web address] Other 12-05-2021 14:01-0400 Diastolic blood pressure 85 mm[Hg] SOFTWARE DEVELOPMENT PROJECT MANAGER-C Anna Wanda Work Phone: [facility] 12-05-2021 14:01-0400 Heart rate 64 /min SOFTWARE DEVELOPMENT PROJECT MANAGER-C Anna Wanda Work Phone: [facility] 12-05-2021 14:01-0400 Respiratory rate 16 /min SOFTWARE DEVELOPMENT PROJECT MANAGER-C Anna Wanda Work Phone: [facility] 12-05-2021 14:01-0400 SaO2% (BldA) [Mass fraction] 99 % SOFTWARE DEVELOPMENT PROJECT MANAGER-C Anna Wanda Work Phone: [facility] 12-05-2021 14:01-0400 Systolic blood pressure 125 mm[Hg] SOFTWARE DEVELOPMENT PROJECT MANAGER-C Anna Wanda Work Phone: [facility] 12-05-2021 13:59-0400 Body height 182.88 cm SOFTWARE DEVELOPMENT PROJECT MANAGER-C Anna Wanda Work Phone: [facility] 12-05-2021 13:59-0400 Body weight 74.84 kg SOFTWARE DEVELOPMENT PROJECT MANAGER-C Anna Wanda Work Phone: [facility] 10-24-2021 15:00-0400 Body height 179.07 cm Andi Eason Other [email or web address] Other 10-24-2021 15:00-0400 Body mass index (BMI) [Ratio] 22.63 kg/m2 Andi Eason Other [email or web address] Other 10-24-2021 15:00-0400 Body temperature 98.1 [degF] Andi Eason Other [email or web address] Other 10-24-2021 15:00-0400 Body weight 72.58 kg Andi Eason Other [email or web address] Other 10-24-2021 15:00-0400 Diastolic blood pressure 93 mm[Hg] Andi Eason Other [email or web address] Other 10-24-2021 15:00-0400 Systolic blood pressure 129 mm[Hg] Andi Eason Other [email or web address] Other 09-19-2021 08:39-0400 Diastolic blood pressure 60 mm[Hg] SOFTWARE DEVELOPMENT PROJECT MANAGER-C Anna Wanda Work Phone: [facility] [facility] 09-19-2021 08:39-0400 Heart rate 65 /min SOFTWARE DEVELOPMENT PROJECT MANAGER-C Anna Wanda Work Phone: [facility] 09-19-2021 08:39-0400 Respiratory rate 18 /min SOFTWARE DEVELOPMENT PROJECT MANAGER-C Anna Wanda Work Phone: [facility] 09-19-2021 08:39-0400 SaO2% (BldA) [Mass fraction] 98 % SOFTWARE DEVELOPMENT PROJECT MANAGER-C Anna Wanda Work Phone: [facility] 09-19-2021 08:39-0400 Systolic blood pressure 99 mm[Hg] SOFTWARE DEVELOPMENT PROJECT MANAGER-C Anna Wanda Work Phone: [facility] 09-19-2021 06:49-0400 Body height 177.8 cm SOFTWARE DEVELOPMENT PROJECT MANAGER-C Anna Muñoz Work Phone: [facility] 09-19-2021 06:49-0400 Body weight 77.11 kg SOFTWARE DEVELOPMENT PROJECT MANAGER-C Anna Muñoz Work Phone: [facility] 08-14-2021 15:15-0400 Body height 179.07 cm Andi Eason Other [email or web address] Other 08-14-2021 15:15-0400 Body mass index (BMI) [Ratio] 22.63 kg/m2 Andi Eason Other [email or web address] Other 08-14-2021 15:15-0400 Body temperature 98.8 [degF] Andi Yumi Other [email or web address] Other 08-14-2021 15:15-0400 Body weight 72.58 kg Andi Yumi Other [email or web address] Other 08-14-2021 15:15-0400 Diastolic blood pressure 84 mm[Hg] Andi Yumi Other [email or web address] Other 08-14-2021 15:15-0400 Systolic blood pressure 127 mm[Hg] Andi Yumi Other [email or web address] Other 07-29-2021 14:30-0400 Body height 179.07 cm Andi Yumi Other [email or web address] Other 07-29-2021 14:30-0400 Body mass index (BMI) [Ratio] 22.63 kg/m2 Andi Yumi Other [email or web address] Other 07-29-2021 14:30-0400 Body temperature 98.2 [degF] Andi Yumi Other [email or web address] Other 07-29-2021 14:30-0400 Body weight 72.58 kg Andi Eason Other [email or web address] Other 07-29-2021 14:30-0400 Diastolic blood pressure 87 mm[Hg] Andi Eason Other [email or web address] Other 07-29-2021 14:30-0400 Systolic blood pressure 140 mm[Hg] Andi Eason Other [email or web address] Other Encounters Encounter Date Encounter Type Care Provider Facility Start: 07-20-2024 End: 07-20-2024 ambulatory Tita Brittani GONZALESCARTON FORMING MACHINE TENDER Work Phone: [facility] Comment on above: Parkinson's disease without dyskinesia, with fluctuating manifestations (HCC) (Primary Dx); RLS (restless legs syndrome); Insomnia, unspecified type Start: 07-20-2024 End: 07-20-2024 Telemedicine consultation with patient Tita Gutierrezsaloni DELGADO.CARTON FORMING MACHINE TENDER Work Phone: [facility] Start: 07-18-2024 End: 07-18-2024 Telephone encounter Heriberto Carrera MD Work Phone: [facility] Comment on above: Release of Informati on Start: 07-14-2024 End: 07-14-2024 Refill Clair ADAMS-C Work Phone: [facility] Comment on above: Refill Request Start: 07-12-2024 End: 07-12-2024 Refill Clair Amaya PA-C Work Phone: [facility] Comment on above: Refill Request Start: 06-20-2024 End: 06-20-2024 ambulatory Clare Brandt DO Work Phone: [facility] Work Phone: Start: 06-20-2024 End: 06-20-2024 Patient encounter procedure Clare Brandt DO Work Phone: [facility] Work Phone: Start: 05-08-2024 End: 05-09-2024 Refill Clair Amaya PA-C Work Phone: [facility] Comment on above: Refill Request Start: 05-06-2024 End: 05-06-2024 Patient encounter procedure Clare Brandt DO Work Phone: [facility] Start: 05-02-2024 End: 05-02-2024 ambulatory [facility] Work Phone: Start: 05-02-2024 End: 05-02-2024 Patient encounter procedure [facility] Work Phone: Start: 04-22-2024 End: 05-02-2024 ambulatory Heriberto Carrera MD Work Phone: [facility] Comment on above: Lab work Start: 04-22-2024 End: 05-02-2024 E-mail encounter from caregiver Heriberto Carrera MD Work Phone: [facility] Start: 04-21-2024 End: 04-21-2024 ambulatory CLAIR AMAYA Facility:[facility] Start: 04-21-2024 End: 04-21-2024 Office outpatient visit 25 minutes Heriberto Carrera MD Work Phone: [facility] Comment on above: Parkinson's disease without dyskinesia, with fluctuating manifestations (HCC) (Primary Dx); Neuropathy; RLS (restless legs syndrome); Restless leg syndrome, nonfamilial, uncontrolled Start: 03-09-2024 End: 03-09-2024 Refill Clair Amaya PA-C Work Phone: [facility] Comment on above: Refill Request Start: 02-25-2024 End: 02-25-2024 Refill Heriberto Carrera MD Work Phone: [facility] Comment on above: Refill Request Start: 02-03-2024 End: 02-03-2024 ambulatory Clair Amaya PA-C Work Phone: [facility] Comment on above: Parkinson's disease without dyskinesia, with fluctuating manifestations (HCC) (Primary Dx) Start: 02-03-2024 End: 02-03-2024 Telemedicine consultation with patient Clair Amaya PA-C Work Phone: [facility] Start: 02-01-2024 End: 02-02-2024 Refill Heriberto Carrera MD Work Phone: [facility] Comment on above: Refill Request Start: 01-29-2024 End: 01-29-2024 Refill Heriberto Carrera MD Work Phone: [facility] Comment on above: Refill Request Start: 11-01-2023 Refill Asa zimmerman MD Work Phone: [facility] Comment on above: Refill Request Start: 09-27-2023 Refill Heriberto Carrera MD Work Phone: [facility] Comment on above: Refill Request Start: 07-23-2023 End: 07-23-2023 ambulatory Vickie Hart Facility:[facility] Start: 07-23-2023 End: 07-23-2023 ambulatory DPM Vickie Balagusto Work Phone: [facility] Work Phone: Start: 07-23-2023 End: 07-23-2023 Departed Referred DPM Vickie Balagusto Work Phone: [facility] Start: 07-15-2023 Refill Heriberto Carrera MD Work Phone: [facility] Comment on above: Refill Request Start: 04-17-2023 End: 04-17-2023 ambulatory SUMAN Whitley PATRICK [facility] Start: 03-27-2023 End: 03-27-2023 Emergency department patient visit ANNA MUÑOZ [facility] Start: 02-02-2023 End: 02-02-2023 Emergency department patient visit LIOR RAMIREZ [facility] Start: 12-31-2022 End: 12-31-2022 Office outpatient visit 25 minutes Heriberto Carrera MD Work Phone: [facility] Comment on above: Parkinson's disease (HCC) (Primary Dx) Start: 08-26-2022 End: 08-27-2022 ambulatory SHIRLEY CASTILLO Facility:[facility] Start: 07-28-2022 Refill Heriberto Carrera MD Work Phone: [facility] Comment on above: Refill Request Start: 07-19-2022 End: 07-20-[address] KENYATTA GOLDSTENI . Facility:[facility] Start: 07-16-2022 End: 07-16-2022 Office outpatient new 45 minutes Heriberto Carrera MD Work Phone: [facility] Comment on above: Parkinson's disease (HCC) (Primary Dx); Anxiety Start: 07-10-2022 End: 07-11-2022 ambulatory ANNA MUÑOZ Facility:[facility] Start: 07-01-2022 Telephone encounter Humberto Diaz MD Work Phone: Neurology Comment on above: External Referrals/r esources Start: 06-19-2022 End: 06-19-2022 ambulatory ANNA MUÑOZ Facility:[facility] Start: 06-17-2022 Encounter for other preprocedural examination [facility] Lani [facility] Start: 06-17-2022 Encounter for preprocedural cardiovascular examination [facility] Lani [facility] Start: 06-17-2022 Encounter for preprocedural laboratory examination VICKIE Garibay [facility] Start: 06-16-2022 End: 06-17-2022 ambulatory ANNA MUÑOZ Facility:[facility] Start: 06-16-2022 End: 06-17-2022 Encounter for preprocedural laboratory examination ANNA MÑUOZ Facility:[facility] Start: 06-04-2022 End: 06-05-2022 ambulatory Saurav Kerns Facility:[facility] Start: 04-21-2022 End: 04-21-2022 ambulatory Andi Eason Other [email or web address] Other Start: 04-21-2022 Office outpatient vi sit 25 minutes Andi BHAKTA [facility] Start: 04-15-2022 End: 04-16-[address] FARRUKH OTT . Facility:[facility] Start: 03-18-2022 End: 03-19-[address] FARRUKH OTT . Facility:[facility] Start: 03-12-2022 End: 03-13-2022 ambulatory Saurav Kerns Facility:[facility] Start: 02-25-2022 End: 02-26-[address] FARRUKH OTT . Facility:[facility] Start: 01-29-2022 End: 01-30-2022 ambulatory Saurav Kerns Facility:[facility] Start: 12-23-2021 End: 12-23-2021 ambulatory Andi Eason Other [email or web address] Other Start: 12-23-2021 Office outpatient vi sit 25 minutes Andi BHAKTA [facility] Start: 12-10-2021 End: 12-10-2021 Patient encounter procedure SOFTWARE DEVELOPMENT PROJECT MANAGER-C Anna Muñoz Work Phone: [facility] Start: 12-05-2021 End: 12-05-2021 Patient encounter procedure SOFTWARE DEVELOPMENT PROJECT MANAGER-C Anna Muñoz Work Phone: [facility] Start: 11-25-2021 End: 11-25-2021 ambulatory Andi Eason Other [email or web address] Other Start: 11-25-2021 Telephone encounter Andi Eason [facility] Start: 11-15-2021 End: 11-16-2021 ambulatory VICKIE HART Facility:[facility] Start: 11-14-2021 End: 11-15-2021 ambulatory ANNA MUÑOZ Facility:[facility] Start: 11-01-2021 End: 11-02-2021 ambulatory Saurav Kerns Facility:[facility] Start: 10-31-2021 End: 10-31-2021 ambulatory SOFTWARE DEVELOPMENT PROJECT MANAGER-C Anna Muñoz Work Phone: [facility] Work Phone: Start: 10-31-2021 End: 10-31-2021 Discharged Recurring SOFTWARE DEVELOPMENT PROJECT MANAGER-C Anna Muñoz Work Phone: [facility] [place] Start: 10-31-2021 Registered Recurring JALYN Gillette Work Phone: [facility] [place] Start: 10-24-2021 End: 10-24-2021 ambulatory Andi Eason Other [email or web address] Other Start: 10-24-2021 Office outpatient vi sit 25 minutes Andi BHAKTA [facility] Start: 10-18-2021 End: 10-19-2021 [facility] Start: 10-11-2021 End: 10-12-2021 ambulatory [address]ICK[address] D [facility] Facility:[facility] Start: 10-04-2021 End: 10-05-2021 ambulatory Saurav Kerns Facility:[facility] Start: 09-27-2021 End: 09-28-2021 ambulatory VICKIE BALAGUSTO Facility:[facility] Start: 09-25-2021 End: 09-25-2021 ambulatory Andi Eason Other [email or web address] Other Start: 09-25-2021 Telephone encounter Andi MEYERS [facility] Start: 09-19-2021 End: 09-19-2021 Patient encounter procedure SOFTWARE DEVELOPMENT PROJECT MANAGER-Danielle Muñoz Work Phone: [facility] [place] Start: 09-18-2021 End: 09-19-2021 ambulatory VICKIE D MALLYAGUSTO Facility:[facility] Start: 09-18-2021 End: 09-19-2021 ambulatory SHIRLEY CASTILLO Facility:[facility] Start: 09-13-2021 End: 09-14-2021 amb[facility] Start: 09-06-2021 End: 09-07-2021 ambulatory Saurav Kerns Facility:[facility] Start: 08-22-2021 End: 08-22-2021 ambulatory Andi Eason Other [email or web address] Other Start: 08-22-2021 Telephone encounter Andi MEYERS [facility] Start: 08-14-2021 End: 08-14-2021 ambulatory Andi Eason Other [email or web address] Other Start: 08-14-2021 Office outpatient vi sit 25 minutes Andi Eason [facility] Infectious Disease Start: 07-29-2021 End: 07-29-2021 ambulatory Andi Eason Other [email or web address] Other Start: 07-29-2021 Office outpatient vi sit 25 minutes Andi Yumi [facility] Infectious Disease Start: 06-21-2021 End: 06-21-2021 ambulatory Michael Alyssa Other [email or web address] Other Start: 06-21-2021 Telephone encounter [facility] Start: 01-16-2021 Telephone encounter Michael Bond [facility] Start: 01-09-2021 Telephone encounter Michael Bond [facility] Start: 01-02-2021 Postop follow up vis it related to original px Michael BHAKTA [facility] Start: 01-02-2021 Telephone encounter Michael Bond [facility] Start: 04-27-2018 End: 04-28-2018 Patient encounter procedure [facility] Start: 04-20-2018 Encounter for other preprocedural examination [facility] Start: 04-20-2018 End: 04-20-2018 Patient encounter procedure [facility] Start: 07-01-2017 End: 07-02-2017 Patient encounter procedure [facility] Procedures Date Procedure Procedure Detail Performing Clinician Start: 12-10-2021 X-ray of left ankle SOFTWARE DEVELOPMENT PROJECT MANAGER- C Anna Muñoz Work Phone: Start: 12-05-2021 XR pre/post mri xray SOFTWARE DEVELOPMENT PROJECT MANAGER -C Anna Muñoz Work Phone: Start: 12-05-2021 MRI of cervical spin e without contrast SOFTWARE DEVELOPMENT PROJECT MANAGER-C Anna Muñoz Work Phone: Start: 09-19-2021 MRI of head SOFTWARE DEVELOPMENT PROJECT MANAGER-C Madeline Muñoz Work Phone: Start: 04-20-2018 Antibody screen [facility] Start: 04-20-2018 Electrocardiogram CHRISTINE Mortensen PATRICK LEAL Plan of Treatment Date Care Activity Detail Author Start: 03-27-2026 Diabetes Screening Diabetes Screenkelvin marlena [facility] Start: 10-19-2024 End: 10-19-2024 Patient encounter procedure 10/19/2024 9:00 AM EDT Office Visit [facility] [address] [place] [address] Tita Marin, SANDY.CARTON FORMING MACHINE TENDER [address] [address] Parkinsons [facility] Comment on above: Parkinsons Start: 07-20-2024 End: 07-20-2024 Follow-up encounter 07/20/2024 1:00 PM EDT [facility] [address] [place] [address] Tita Marin, MIXER ATTENDANT.CARTON FORMING MACHINE TENDER [address] [address] Follow up [facility] Comment on above: Follow up Start: 04-21-2024 End: 04-21-2024 Patient encounter procedure 04/21/2024 11:00 AM EST Office Visit [facility] [address] [place] [address] Heriberto Carrera MD [address] [place] [address] [facility] Start: 04-12-2024 End: 04-12-2024 Patient encounter procedure 04/12/2024 3:30 PM EST Office Visit [facility] [address] [place] [address] Heriberto Carrera MD [address] [place] [address] [facility] Start: 02-25-2024 End: 05-26-2024 CBC panel - Blood by Automated count COMPLETE BLOOD COUNT Lab Routine Screening due Expected: 02/25/2024, Expires: 05/26/2024 [facility] Work Phone: Comment on above: Expected: 02/25/2024 , Expires: 05/26/2024 Start: 02-25-2024 End: 05-26-2024 CREATININE BLD CREATININE BLD Lab Routine Screening due Expected: 02/25/2024, Expires: 05/26/2024 [facility] Comment on above: Expected: 02/25/2024 , Expires: 05/26/2024 Start: 02-25-2024 End: 05-26-2024 Hepatic function 2000 panel - Serum or Plasma HEPATIC FUNCTION PNL Lab Routine Screening due Expected: 02/25/2024, Expires: 05/26/2024 [facility] Comment on above: Expected: 02/25/2024 , Expires: 05/26/2024 Start: 02-03-2024 End: 02-03-2024 [facility] 02/03/2024 8:00 AM EDT [facility] [address] [place] [address] Clair Amaya PA-C [address] [place], [place] [id number] Tremors, patient is requesting a refill of medication, had been out of medication since 01/25 and per pt when he called the office to request a refill they told him he would need an appointment first. [facility] Comment on above: Tremors, patient is requesting a refill of medication, had been out of medication since 01/25 and per pt when he called the office to request a refill they told him he would need an appointment first. Start: 12-13-2023 Covid-19 Vaccine ( season) Covid-19 Vaccine () [facility] Start: 12-13-2023 Influenza vaccination C [facility] Start: 04-13-2023 Behavioral Health Screening Behavioral Health Screening [facility] Start: 12-12-2022 Covid-19 Vaccine ( season) Covid-19 Vaccine () [facility] Start: 12-12-2022 Influenza vaccination C [facility] Start: 04-13-2022 DEPRESSION ASSESSMENT DEPRESSION ASS ESSMENT [facility] Start: 12-12-2021 Influenza vaccination INFLUENZA (#1) [facility] Start: 12-10-2021 End: 12-10-2021 Patient encounter procedure Departed Clinical [facility] Start: 12-10-2021 X-ray of left ankle XR ankle LT min 3V* [facility] Start: 04-28-2021 DIABETES SCREEN DIABETES SCREEN [facility] Start: 04-28-2021 Diabetes Screening Diabetes Screenin g [facility] Start: 2020 PROSTATE CANCER SCREENING DISCUSSION PROSTATE CANCER SCREENING DISCUSSION [facility] Start: 2020 Prostate specific antigen measurement Prostate Cancer Screening Discussion [facility] Start: 11-29-2015 SHINGRIX VACCINE (1 of 2) SHINGRIX VACCINE (1 of 2) [facility] Start: 2010 COLOGUARD (FIT-DNA) COLOGUARD (FIT-D NA) [facility] Start: 2010 Colonoscopy COLONOSCOPY [facility] Start: 2010 COLORECTAL CANCER SCREENING COLORECTAL CANCER SCREENING [facility] Start: [address] COLONOGRAPHY [facility] Start: 2010 FECAL OCCULT BLOOD FECAL OCCULT BLOO D [facility] Start: 2010 Screening for malign ant neoplasm of colon [facility] Start: 2010 SIGMOIDOSCOPY SIGMOIDOSCOPY [facility] Start: 2000 Lipid 1996 panel - Serum or Plasma Lipid Screening [facility] Start: 2000 Lipid panel Lipid Screening [facility] Start: 2000 LIPID SCREEN LIPID SCREEN [facility] Start: 1984 Hepatitis B Vaccine (1 of 3 - 19+ 3-dose series) Hepatitis B Vaccine (1 of 3 - 19+ 3-dose series) [facility] Start: 1984 Pneumococcal Vaccine : 50+ (1 of 2 - PCV) Pneumococcal Vaccine: 50+ (1 of 2 - PCV) [facility] Start: 1984 Urine microalbumin profile [facility] Start: 11-29-1983 Anxiety Screening Anxiety Screening [facility] Start: 11-29-1983 Depression Screening Depression Scre ening [facility] Start: 11-29-1983 HEPATITIS C SCREENING HEPATITIS C SC REENING [facility] Start: 11-29-1983 Hepatitis C screening Hepatitis C [facility] Start: 11-29-1983 HIV SCREENING HIV SCREENING [facility] Start: 11-29-1983 HIV screening HIV Screening [facility] Start: 11-29-1971 PNEUMOCOCCAL (1 - PCV) PNEUMOCOCCAL (1 - PCV) [facility] Start: 11-29-1971 Pneumococcal vaccination [facility] Start: 05-31-1966 COVID-19 VACCINE (#1) COVID-19 VACCI NE (#1) [facility] Start: 1965 HEPATITIS B (1 of 3 - 3-dose series) HEPATITIS B (1 of 3 - 3-dose series) [facility] Start: 1965 Hepatitis B Vaccine (1 of 3 - 3-dose series) Hepatitis B Vaccine (1 of 3 - 3-dose series) [facility] c Payers Date Payer Category Payer Self-pay [id number] 2023 Medicare DEVOTED MEDICARE [facility] [id number] 2023-Present [phone] [address] [place]ER [place] [address] [facility] [id number] 2023 Private Health Insurance [facility] [id number] 2023 Unknown [id number] 2023 Medicare [id number] 2022 Medicaid [employer] [id number] 2022-Present [phone] [address] [place] [address] Medicaid [id number] 1965 Unknown [id number] 2.16.840.1.149224.3.579.2. 593 1965 Unknown [id number] 2.16.840.1.163429.3.579.2. 593 1965 Unknown [id number] 2.16.840.1.771514.3.579.2. 593 1965 Unknown [id number] 2.16.840.1.943744.3.579.2. 593 1965 Unknown [id number] 2.16.840.1.995053.3.579.2. 593 1965 Unknown [id number] 2.16.840.1.222240.3.579.2. 593 1965 Unknown [id number] 2.16.840.1.653315.3.579.2. 593 1965 Unknown [id number] 2.16.840.1.105580.3.579.2. 593 1965 Unknown [id number] 2.16.840.1.270156.3.579.2. 593 1965 Unknown [id number] 2.16.840.1.233509.3.579.2. 593 1965 Unknown [id number] 2.16.840.1.718128.3.579.2. 593 1965 Unknown [id number] 2.16.840.1.101898.3.579.2. 593 1965 Unknown [id number] 2.16.840.1.830127.3.579.2. 593 1965 Unknown [id number] 2.16.840.1.761268.3.579.2. 593 1965 Unknown [id number] 2.16.840.1.278767.3.579.2. 593 1965 Unknown [id number] 2.16.840.1.639486.3.579.2. 593 1965 Unknown [id number] 2.16.840.1.800829.3.579.2. 593 1965 Unknown [id number] 2.16.840.1.937306.3.579.2. 593 1965 Unknown [id number] 2.16.840.1.206210.3.579.2. 59 1965 Unknown [id number] 2.16.840.1.608079.3.579.2. 593 1965 Unknown [id number] 2.16840.1.881399.3.579.2. 593 1965 Unknown [id number] 2.16.840.1.433931.3.579.2. 593 1965 Unknown [id number] 2.840.1.294361.3.579.2. 182 1965 Unknown [id number] 2.16.840.1.924793.3.579.2. 182 1965 Unknown [id number] 2.16840.1.797954.3.579.2. 182 1959 Medicaid [id number] 2.840.1.899741.19 Private Health Insurance [facility] [id number] Self-pay [id number] 2.840.1.886046.19 Self-pay [id number] Self-pay [id number] 2.16.840.1.505424.19 Unknown [place] BC/BS [id number] Unknown Regular Insurance [id number] Unknown [id number] 2.16.840.1.697431.3.579.2. 531 Social History Date Type Detail Facility Unknown if ever smoked [email or web address] Other Start: 03-18-2020 End: 12-31-2022 Sex Assigned At [facility] Start: 12-05-2020 Tobacco smoking stat us NVIS Smoker (finding) [facility] Start: 1965 Sex Assigned At Male F [facility] Start: 06-30-2002 End: 07-16-2022 Tobacco smoking status NVIS Smokes tobacco daily [facility] Work Phone: Start: 06-30-2002 History of tobacco use Cigarette Smo ker [facility] Work Phone: Start: 04-20-2018 End: 03-18-2020 Cigarettes smoked current (pack per day) - Reported 1 [facility] Start: 04-20-2018 End: 07-16-2022 Tobacco use and exposure Smokeless tobacco non-user [facility] Work Phone: Start: 04-27-2018 End: 12-31-2022 Alcohol intake Current non-drinker of alcohol (finding) [facility] Start: 04-20-2018 End: 07-16-2022 Tobacco Comment Currently down to 1-2 a day (04/20/18) [facility] Start: 1965 Sex Assigned At Not on file C [facility] Adult Depression Screening Assessment 2 [facility] Start: 05-02-2024 End: 06-20-2024 Tobacco smoking status NHIS Ex-smoker (finding) [facility] Start: 05-02-2024 End: 06-20-2024 Sex Male (finding) [facility] Medical Equipment Procedure Code Equipment Code Equipment Origin al Text Equipment Identifier Dates ORIF, fracture, ankle Orthopaedic bone screw, non-bioabsorbable, non-sterile ()[id number] FDA Start: 10-09-2020 ORIF, fracture, ankle Orthopaedic bone screw, non-bioabsorbable, non-sterile ()[id number] FDA Start: 10-09-2020 ORIF, fracture, ankle Orthopaedic bone screw, non-bioabsorbable, non-sterile ()[id number] FDA Start: 10-09-2020 ORIF, fracture, ankle Orthopaedic bone screw, non-bioabsorbable, non-sterile ()[id number] FDA Start: 10-09-2020 ORIF, fracture, ankle Orthopaedic fixation plate, non-bioabsorbable, sterile ()[id number] FDA Start: 10-09-2020 ORIF, fracture, ankle Orthopaedic bone screw, non-bioabsorbable, non-sterile ()[id number] FDA Start: 10-09-2020 ORIF, fracture, ankle SCREW CORTEX 2.7MM X 40MM FDA Start: 10-23-2020 ORIF, fracture, ankle CANCELLOUS COARSE 7.5CC FDA Start: 12-05-2020 ORIF, fracture, ankle Orthopaedic bone screw, non-bioabsorbable, non-sterile ()[id number] FDA Start: 12-05-2020 ORIF, fracture, ankle Orthopaedic bone screw, non-bioabsorbable, non-sterile ()[id number] FDA Start: 12-05-2020 ORIF, fracture, ankle Orthopaedic bone screw, non-bioabsorbable, non-sterile ()[id number] FDA Start: 12-05-2020 ORIF, fracture, ankle Orthopaedic bone screw, non-bioabsorbable, non-sterile ()[id number] FDA Start: 12-05-2020 ORIF, fracture, ankle Orthopaedic bone screw, non-bioabsorbable, non-sterile ()[id number] FDA Start: 10-23-2020 ORIF, fracture, ankle Orthopaedic bone screw, non-bioabsorbable, non-sterile ()[id number] FDA Start: 10-23-2020 ORIF, fracture, ankle CANCELLOUS COARSE 7.5CC FDA Start: 12-05-2020 ORIF, fracture, ankle Orthopaedic fixation plate, non-bioabsorbable, sterile ()[id number] FDA Start: 12-05-2020 ORIF, fracture, ankle Orthopaedic fixation plate, non-bioabsorbable, sterile ()[id number] FDA Start: 10-23-2020 ORIF, fracture, ankle Orthopaedic bone screw, non-bioabsorbable, non-sterile ()[id number] FDA Start: 12-05-2020 ORIF, fracture, ankle Orthopaedic bone screw, non-bioabsorbable, non-sterile ()[id number] FDA Start: 10-23-2020 ORIF, fracture, ankle Orthopaedic bone pin, non-bioabsorbable ()[id number] FDA Start: 10-09-2020 ORIF, fracture, ankle External orthopaedic fixation system reprocessed component ()[id number] FDA Start: 10-09-2020 ORIF, fracture, ankle Orthopaedic bone screw, non-bioabsorbable, non-sterile ()[id number] FDA Start: 10-09-2020 ORIF, fracture, ankle Orthopaedic bone screw, non-bioabsorbable, non-sterile ()[id number] FDA Start: 10-23-2020 ORIF, fracture, ankle Orthopaedic bone screw, non-bioabsorbable, non-sterile ()[id number] FDA Start: 10-23-2020 ORIF, fracture, ankle Orthopaedic bone screw, non-bioabsorbable, non-sterile ()[id number] FDA Start: 10-23-2020 ORIF, fracture, ankle Orthopaedic bone screw, non-bioabsorbable, non-sterile ()[id number] FDA Start: 10-23-2020 ORIF, fracture, ankle Orthopaedic fixation plate, non-bioabsorbable, sterile ()[id number] FDA Start: 10-23-2020 ORIF, fracture, ankle Orthopaedic bone screw, non-bioabsorbable, non-sterile ()[id number] FDA Start: 10-23-2020 ORIF, fracture, ankle SCREW [...] Start: 12-05-2020 Sys Implant Fix W/Sl Acl/Pcl [id number] Start: 07-01-2017 [place] Healix 5. 5mm Biocryl Rapide Suture Orthocord Needle - [id number] Start: 04-27-2018 Cable Lcp 1.7mm Stainless Steel 750mm Orthopedic Crimp Cerclage Sterile - [id number] Start: 04-27-2018 Head G7 40mm Bio lox Delta Femoral Hip - [id number] Start: 03-18-2017 Shell G7 56mm F Offset Hemisphere Osseoti Acetabular 4 Hole Limit Hip - [id number] Start: 04-27-2018 Liner G7 E1 40mm F Neutral Acetabular Antioxidant Infused Technology - [id number] Start: 03-18-2017 Liner G7 E1 40mm F Neutral Acetabular Antioxidant Infused Technology - [id number] Start: 04-27-2018 Screw G7 6.5mm D ome 25mm Acetabular Low Profile - [id number] Start: 04-27-2018 Cable Lcp 1.7mm Stainless Steel 750mm Orthopedic Crimp Cerclage Sterile - [id number] Start: 04-27-2018 Cable Lcp 1.7mm Stainless Steel 750mm Orthopedic Crimp Cerclage Sterile - [id number] Start: 04-27-2018 Shell G7 56mm F Offset Hemisphere Osseoti Acetabular 4 Hole Limit Hip - [id number] Start: 03-18-2017 Stem Taperloc 13 3d 17 High Offset Taper Pps 154mm Femoral Type 1 Complete - [id number] Start: 03-18-2017 Sleeve G7 +6mm Offset Taper Biolox Delta Centering Type 1 Option Hip - [id number] Start: 03-18-2017 Sleeve G7 +3mm Offset Taper Biolox Delta Centering Type 1 Option Hip - [id number] Start: 04-27-2018 Head G7 40mm Bio lox Delta Femoral Hip - [id number] Start: 04-27-2018 Stem Taperloc 13 3d 17 High Offset Taper Pps 154mm Femoral Type 1 Complete - [id number] Start: 04-27-2018 Functional Status Date Assessment Result Facility 04-28-2018 Are you deaf, or do you have serious difficulty hearing No 04/28/2018 3:58 PM Scarlet Mccarty RN No [facility] 04-28-2018 Are you blind, or do you have serious difficulty seeing, even when wearing glasses No 04/28/2018 3:58 PM Scarlet Mccarty, ABDULAZIZ No [facility] 04-28-2018 Do you have serious difficulty walking or climbing stairs Yes 04/28/2018 3:58 PM Scarlet Mccarty, ABDULAZIZ Yes [facility] 04-28-2018 Do you have difficul ty dressing or bathing Yes 04/28/2018 3:58 PM Scarlet Mccarty, ABDULAZIZ Yes [facility] 04-28-2018 Because of a physica l, mental, or emotional condition, do you have difficulty doing errands alone such as visiting a physician's office or shopping Yes 04/28/2018 3:58 PM Scarlet Mccarty, ABDULAZIZ Yes [facility] Mental Status Date Assessment Result Facility 04-28-2018 Because of a physica l, mental, or emotional condition, do you have serious difficulty concentrating, remembering, or making decisions No 04/28/2018 3:58 PM Scarlet Mccarty, ABDULAZIZ No [facility] Clinical Notes 01-02-2021 to 07-20-2024 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 Boss for follow-up today. As you know he is a 58 year old right-handed male with a history of tremor predominant Parkinson disease since 2016. We had a visit using: [employer] Zoom [employer] Zoom I have communicated my name and active licensure. The patient's identity and physical location were verified at the time of this visit. Either the patient or their legal mortician supplies sales representative has been informed of the risks and benefits of -- and alternatives to -- treatment through a remote evaluation and consents to proceed with the evaluation remotely. The patient consented to the use of ambient AI software for draft documentation of the visit consistent with [facility] s Notice of Privacy Practices. Subjective During [...] Row Distance Health from 07/20/2024 in [facility] from 02/03/2024 in [facility] T Score 39.8 39.8 [...] Rasagiline 0.5mg 1 Level of service : 60924 (40-68 min). Time spent 65 min on the day of service, which included preparing to see the patient, barj-wh-zzkq patient care, completing clinical documentation, obtaining and/or [...] hesitate to call with any questions. Sincerely, Tita Marin APRN.CNP documented in this encounter [facility] 07-20-2024 Note HNO ID: [id number] Author: TITA MARIN APRN.CNP Service: ? Author Type: Nurse Practitioner Type: Progress Notes Filed: 07/20/2024 15:34 Note Text: [facility] - FOLLOW UP EVALUATION - VIRTUAL VISIT Primary Movement Disorders Neurologist: Heriberto Carrera MD Primary Movement Disorders HUGO: Rio Alanis MD [address] [address] Dear Rio Alanis MD: I had the pleasure of seeing Mr. Boss for follow-up today. As you know he is a 58 year old right-handed male with a history of tremor predominant Parkinson disease since 2016. We had a visit using: [employer] eROI I have communicated my name and active licensure. The patient's identity and physical location were verified at the time of this visit. Either the patient or their legal mortician supplies sales representative has been informed of the risks and benefits of -- and alternatives to -- treatment through a remote evaluation and consents to proceed with the evaluation remotely. The patient consented to the use of ambient [employer] software for draft documentation of the visit consistent with [facility]?s Notice of Privacy Practices. Subjective During his [...] q 12 HR. IBUPROFEN ORAL Take by mo (more content not included)... [facility] 07-18-2024 Telephone encount er Note Pt is having surgery coming up and they need the last OV note faxed over. Faxed to [facility] at [phone]. [facility] 07-18-2024 Miscellaneous Notes Formattin g of this note might be different from the original. Pt is having surgery coming up and they need the last OV note faxed over. Faxed to [facility] at [phone]. documented in this encounter [facility] 07-14-2024 Telephone encount er Note Patient requests via [employer] refills as follows: When [facility] 04/21/24 JORDIN w/Dr. Carrera Requested Prescriptions Pending Prescriptions Disp Refills carbidopa-levodopa (SINEMET 25-100) 25-100 mg per tablet 225 tablet 1 Sig: TAKE 1 & 1/2 (ONE & ONE-HALF) TABLETS BY MOUTH 5 TIMES A DAY (6:30 AM, 9:30 AM, 12:30 PM, 3:30 PM AND 6:30 PM) Please review and advise. Keena Warren [facility] 07-14-2024 Miscellaneous Notes Formattin g of this note is different from the original. Patient requests via MyChart refills as follows: When approved Rx escribed to [facility]. 04/21/24 JODRIN w/Dr. Carrera Requested Prescriptions Pending Prescriptions Disp Refills carbidopa-levodopa (SINEMET 25-100) 25-100 mg per tablet 225 tablet 1 Sig: TAKE 1 & 1/2 (ONE & ONE-HALF) TABLETS BY MOUTH 5 TIMES A DAY (6:30 AM, 9:30 AM, 12:30 PM, 3:30 PM AND 6:30 PM) Please review and advise. [facility] Electron[facility] signed by [facility] morfin at 07/14/2024 8:12 AM EDT documented in this encounter [facility] 05-09-2024 Telephone encount er Note Patient requests via MyChart refills as follows: [facility] 02/03/24 JORDIN whitley/Clair Amaya PA-C Requested Prescriptions Pending Prescriptions Disp Refills carbidopa-levodopa CR (SINEMET CR) 25-100 mg per tablet 90 tablet 3 Sig: Take 1 tablet by mouth at bedtime Please review and advise. Keena Warren Electronically signed by [facility] Center[facility]ena morfin at 05/09/2024 8:31 AM EST [facility] 05-09-2024 Miscellaneous Notes Formattin g of this note is different from the original. Patient requests via MyChart refills as follows: When approved Rx escribed to [facility]. 02/03/24 JORDIN Amaya PA-C Requested Prescriptions Pending Prescriptions Disp Refills carbidopa-levodopa CR (SINEMET CR) 25-100 mg per tablet 90 tablet 3 Sig: Take 1 tablet by mouth at bedtime Please review and advise. Keena Warren documented in this encounter [facility] 05-02-2024 Evaluation note Diagnosis Onset Date Resolution GERD (gastroesophageal reflux disease) acute May 02 11:10am Screening for prostate cancer noneactive May 02 11:10am Screening for colon cancer noneactive May 02 11:10am Screening for cardiovascular condition noneactive May 02, 2024 11:10am Rash and nonspecific skin eruption noneactive June 20, 2024 9:05am [facility] Work Phone: 1([phone] 113-112501-20-2025 Telephone encounter Note* Telephone Encounter - Kalina Johnson RN - 05/02/2024 12:06 PM EST Information faxed as requested [facility]01-20-2025 Miscellaneous Notes* Telephone Encounter - Kalina Johnson RN - 05/02/2024 12:06 PM EST Information faxed as requested [facility] Instructions* Patient Instructions* Heriberto Carrera MD - [...] in 3 months virtually documented in [facility]01-[facility]-2025 NoteHNO ID: [id number] Author: HERIBERTO CARRERA MD Service: ? Author Type: Physician Type: Progress Notes Filed: 04/21/2024 16:09 Note Text: [facility] - FOLLOW UP EVALUATION Rio Alanis MD [address] [facility] [address] [facility] [address] Dear Rio Alanis MD: I had the [...] Row Distance Health from 02/03/2024 in [facility] from 11/03/2022 in [facility] T Score 39.8 39.8 [...] person, place and time (more content not included)...[facility]01-09-2025 History of Present illness Narrative* Heriberto Carrera MD - 04/21/2024 11:07 AM EST [facility] - FOLLOW UP EVALUATION Rio Alanis MD [address] [address] Dear Rio Alanis MD: I had the [...] Row Distance Health from 02/03/2024 in [facility] from 11/03/2022 in [facility] T Score 39.8 39.8 [...] proprioception in all four extremities. Coordination Right: Koqciv-pg-tkjv normal. Rapid alternating movement normal.Left: Uunqkx-hj-ascs normal. Rapid alternating movement normal. 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 02/09/24 FUSekou w/Clair Amaya PA-C Requested Prescriptions Pending Prescriptions Disp Refills carbidopa-levodopa (SINEMET 25-100) 25-100 mg per tablet 225 tablet 3 Sig: TAKE 1 TABLET BY MOUTH 5 TIMES DAILY (6:30 AM, 9:30 AM, 12:30 PM, 3:30 PM and 6:30 PM) Please review and advise. Keena Warren [facility]11-27-2024 Miscellaneous Notes* Telephone Encounter - Keena Shafer - 03/09/2024 10:03 AM EST Patient requests via MyChart refills as follows: When approved Rx escribed to [facility]. 02/09/24 JORDIN whitley/Clair Amaya PA-C Requested Prescriptions Pending Prescriptions Disp Refills carbidopa-levodopa (SINEMET 25-100) 25-100 mg per tablet 225 tablet 3 Sig: TAKE 1 TABLET BY MOUTH 5 TIMES DAILY (6:30 AM, 9:30 AM, 12:30 PM, 3:30 PM and 6:30 PM) Please review and advise. Keena Warren documented in [facility]Henry [facility]11-[facility]-2024 Telephone encounter Note * Telephone Encounter - Briana Douglass - 02/25/2024 4:29 PM EST Last appt 02/03/24 Clair Requested Prescriptions Pending Prescriptions Disp Refills mirtazapine (REMERON) 15 mg tablet 90 tablet 3 Sig: Take 1 tablet by mouth daily at bedtime. [facility]11-14-2024 Miscellaneous Notes* Telephone Encounter - Evonne Briana Pinedary - 02/25/2024 4:29 PM EST Last appt 02/03/24 Clair Requested Prescriptions Pending Prescriptions Disp Refills mirtazapine (REMERON) 15 mg tablet 90 tablet 3 Sig: Take 1 tablet by mouth daily at bedtime. documented in this encounterHenry [facility]10-23-2024 NoteHNO ID: [id number] Author: CLAIR AMAYA PA-C Service: ? Author Type: Physician Cut Off Machine Helper Type: Progress Notes Filed: 02/03/2024 09:54 Note Text: [facility] - FOLLOW UP EVALUATION - VIRTUAL VISIT Rio Alanis MD [address] [address] Dear Rio Alanis MD: I had the pleasure of seeing Mr. Boss for follow-up today. As you know he is a 58 year old right-handed male with a history of tremor predominant Parkinson disease since 2016. We had a visit using: [employer] eROI I have communicated my name and active licensure. The patient's identity and physical location were verified at the time of this visit. Either the patient or their legal mortician supplies sales representative has been informed of the risks [...] Flowsheet Row Appointment from 02/03/2024 in [facility] from 11/03/2022 in [facility] T Score 39.8 39.8 Global Mental Health T Score 38.8 43.5 0-10 Standard Pain Scale 3 3 *PROMIS-10 scoring scale: mean = 50, over 50 is above average, under 50 is below average Objective General Physical Examination: Awake, alert, interactive, no acute distress. Only a limited general examination was done due to video format. Neurological E (more content not included)...[facility] 02-03-2024 History of Present illness Narrative* Clair Amaya PA-C - 02/03/2024 8:08 AM EDT [facility] - FOLLOW UP EVALUATION - VIRTUAL VISIT Rio Alanis MD [address] [address] Dear Rio Alanis MD: I had the pleasure of seeing Mr. Boss for follow-up today. As you know he is a 58 year old right-handed male with a history of tremor predominant Parkinson disease since 2016. We had a visit using: Epic Zoom Epic Zoom I have communicated my name and active licensure. The patient's identity and physical location wereverified at the time of this visit. Either the patient or their legal mortician supplies sales representative has been informed of the risks [...] Flowsheet Row Appointment from 02/03/2024 in [facility] from 11/03/2022 in [facility] T Score 39.8 39.8 [...] CR 25/100 1 Level of service : 29798 (20-29 min). Time spent 28 min on [...] Sincerely, Clair Amaya PA-C [facility] Telephone encounter Note * Telephone Encounter - [...] electronically to the patient's pharmacy. Jocelyn Menon, Basket Grader III [facility]07-22-2024 Miscellaneous Notes* Telephone Encounter - Jocelyn Flower [...] electronically to the patient's pharmacy. Jocelyn Menon, Basket Grader III documented in this encounterHenry [facility]06-17-2024 Telephone encounter Note * Telephone Encounter - Briana Douglass - 09/28/2023 3:57 PM EDT Last appt 12/31/22 US Requested Prescriptions Pending Prescriptions Disp Refills carbidopa-levodopa (SINEMET 25-100) 25-100 mg per tablet 150 tablet 0 Sig: TAKE 1 TABLET BY MOUTH 5 TIMES DAILY (6:30 AM, 9:30 AM, 12:30 PM, 3:30 PM and 6:30 PM) [facility]06-17-2024 Miscellaneous Notes* Telephone Encounter - Briana Douglass - 09/28/2023 3:57 PM EDT Last appt 12/31/22 US Requested Prescriptions Pending Prescriptions Disp Refills carbidopa-levodopa (SINEMET 25-100) 25-100 mg per tablet 150 tablet 0 Sig: TAKE 1 TABLET BY MOUTH 5 TIMES DAILY (6:30 AM, 9:30 AM, 12:30 PM, 3:30 PM and 6:30 PM) documented in this encounterHenry [facility]04-04-2024 Miscellaneous Notes* Telephone Encounter - Briana Douglass - 07/16/2023 9:21 AM EDT Last appt 12/31/22 US Requested Prescriptions Pending Prescriptions Disp Refills carbidopa-levodopa (SINEMET 25-100) 25-100 mg per tablet 360 tablet 3 Sig: TAKE 1 TABLET BY MOUTH 5 TIMES DAILY (6:30 AM, 9:30 AM, 12:30 PM, 3:30 PM and 6:30 PM) documented in this encounterHenry [facility] Hospital09-20-2023 Instructions* Patient Instructions* Heriberto Carrera MD - [...] or you can send a message through [employer]. You can also now schedule and select appointments through [employer]. Heriberto Carrera MD documented in this encounterHenry [facility]09-20-[facility]23 History of Present illness Narrative* Heriberto Carrera MD - 12/31/2022 9:59 AM EDT [facility] - FOLLOW UP EVALUATION Rio Alanis MD [address] [facility] [address] [place] [address] Dear Rio Alanis MD: I had the [...] Associate Staff [facility] documented in this encounterHenry [facility] Hospital05-16-2023 NotePROCEDURE: XR FOOT LT MIN 3 VIEWS [...] Electronically authenticated by: SHIRLEY CASTILLO Date: 2022-08-26 10:49[facility]04-[facility] Miscellaneous Notes* Telephone Encounter - [...] AM, NOON, 4 PM, 8 PM) Elda S documented in this encounterHenry [facility] Hospital04-08-2023 NotePROCEDURE: XR FOOT LT MIN 3 VIEWS [...] Electronically authenticated by: SAURAV KERNS Date: 2022-07-19 12:12[facility] HospitalOborqavj43-19-2280 Instructions* Patient Instructions* Umar A Deandre, MD - 07/16/2022 2:51 PM EDT It [...] At this point please send me a Ph[employer] Touch[employer]ize message so we can discuss future steps Try to exercise regularly as this has evidence for slowing down Parkinson disease. Aerobic exerciseis preferred (i.e. low resistance fast reps 30-40 minutes a day, 4 or more times per week). Suggested activities: recumbent exercise bike or elliptical. Follow up with me in 3 months via virtual visit documented in this encounterHenry [facility] Hospital04-05-2023 History of Present illness Narrative* Heriberto Carrera MD - 07/16/2022 2:14 PM EDT [facility] - NEW PATIENT EVALUATION Primary Care Provider: Rio Alanis MD [address] [facility] [address] [facility] [address] Dear Rio Alanis MD: I had the [...] Row Office Visit from 07/16/2022 in [facility] T Score 42.3 Global [...] that includes appendectomy (); shoulder arthroscopy/surg (Right, ); arthrp acetblr/prox fem prostc agrft/algrft (Right, 03/18/2017); [...] At this point please send me a [employer] Touch[employer] message so we can discuss future steps [...] Associate Staff [facility] documented in this encounterHenry [facility] Hospital03-30-2023 NotePROCEDURE: XR FOOT LT MIN 3 VIEWS [...] authenticated by: SHIRLEY CASTILLO Date: 2022-07-10 15:59[facility] HospitalVhokgdbu55-65-2985 Miscellaneous Notes* Telephone Encounter - CHRIS Reyes [...] please? Thank you, Laurence documented in this encounterHenry [facility] Hospital02-23-2023 NotePROCEDURE: XR ANKLE LT MIN [...] Electronically authenticated by: SAURAV KERNS Date: 2022-06-05 08:24[facility]02-[facility] NotePROCEDURE: XR ANKLE LT MIN [...] Electronically authenticated by: SAURAV KERNS Date: 2022-06-05 08:24[facility]01-09-[facility] Evaluation note* Encounter Date Diagnosis [...] lower extremity, subsequent encounter (ICD-10 - T84.629D) [email or web address] Other 01-03-2023 NoteCONSULTATION CONSULTATION DATE: 04/15/2022 CHIEF [...] The patient will be sent to the [facility] with regards to Parkinson's treatment and education. 3. [facility] has been suggested to [place] with regards to the grieving process with the current diagnosis that the patient has. The patient understands, is hopeful and would like to proceed. These matters were discussed with Dr. Hart. CC Anna Muñoz, CINDY Gutierrez, [facility]12-06-2022 NoteCONSULTATION CONSULTATION DATE: 03/18/2022 CHIEF COMPLAINT: [...] patient understands and would like to proceed.[facility] [id number] NoteCONSULTATION PROCEDURE DATE: 03/18/2022 PREOPERATIVE DIAGNOSIS: Spasming [...] Will be followed up in the office.[facility] [id number] NotePROCEDURE: XR ANKLE LT MIN 3 V [...] Electronically authenticated by: SAURAV KERNS Date: 2022-03-12 17:48[facility]11-15-2022 NoteCONSULTATION CONSULTATION DATE: 02/25/2022 CHIEF COMPLAINT: Left [...] to proceed. CC: Vickie Hart, EDE Muñoz, [facility]11-15-2022 NoteCONSULTATION PROCEDURE DATE: 02/25/2022 PREOPERATIVE DIAGNOSIS: Left [...] up in the office in two weeks.[facility] HospitalJogxgxwt08-72-1745 NotePROCEDURE: XR ANKLE LT MIN 3 V [...] Electronically authenticated by: SAURAV KERNS Date: 2022-01-29 21:14[facility]09-12-2022 Evaluation note* Encounter Date Diagnosis [...] in. Follow-up in 3 to 4 months. [email or web address] Other 08-15-2022 Evaluation note* Encounter Date Diagnosis Assessment Notes Treatment Notes Treatment Clinical Notes Nov, MSSA (methicillin susceptible Staphylococcus aureus) infection (ICD-10 - A49.01) [email or web address] Other 07-23-2022 NotePROCEDURE: XR ANKLE LT MIN [...] Electronically authenticated by: SAURAV KERNS Date: 2021-11-02 20:07[facility]07-14-2022 Evaluation note* Encounter Date Diagnosis [...] Oct, Chronic antibiotic suppression (ICD-10 - Z79.2) [email or web address] Other 06-24-2022 NotePROCEDURE: XR ANKLE LT MIN [...] Electronically authenticated by: SAURAV KERNS Date: 2021-10-04 16:26[facility]06-15-2022 Evaluation note* Encounter Date Diagnosis Assessment Notes Treatment Notes Treatment Clinical Notes Sep, MSSA (methicillin susceptible Staphylococcus aureus) infection (ICD-10 - A49.01) [email or web address] Other 05-27-2022 NotePROCEDURE: XR ANKLE LT MIN [...] Electronically authenticated by: SAURAV KERNS Date: 2021-09-06 10:32[facility]05-12-2022 Evaluation note* Encounter Date Diagnosis Assessment Notes Treatment Notes Treatment Clinical Notes August, MSSA (methicillin susceptible Staphylococcus aureus) infection (ICD-10 - A49.01) [email or web address] Other 05-04-2022 Evaluation note* Encounter Date Diagnosis [...] We will check C-reactive protein as well. [email or web address] Other 04-18-2022 Evaluation note* Encounter Date Diagnosis [...] lower extremity, initial encounter (ICD-10 - T84.7XXA) [email or web address] Other 03-08-2022 NoteMicrobiology PROCEDURE: Blood Culture Charcoal [R1] SOURCE: Blood BODY SITE: Arm L COLLECTED DATE/TIME: 06/15/2021 16:32 EST RECEIVED DATE/TIME: 06/15/2021 23:47 EST START DATE/TIME: 06/15/2021 23:47 EST FREE TEXT SOURCE: Ryan Castro DO, DO, Kevin R. FINAL REPORTS Final Report [] Verified Date/Time: 06/18/2021 13:52 EST Staphylococcus aureus In 2 of 2 blood culture bottles drawn. Isolated from aerobic and anaerobic bottles Preliminary gram stain of gram positive cocci in clusters Result called to Diann Castanon (Isaak Hodge) by [facility] and results read back for confirmation on [...] Locations R1: This test was performed at: [facility], [address] [place] [address], [address]- , , [facility] Hospital[facility] on above:Performed By: #### [id number] ####[facility] [address] [place], [place] [id number] NoteMicrobiology PROCEDURE: Blood Culture Charcoal [R1] SOURCE: [...] in clusters Result called to Diann Castanon ([facility]) by [employer] and results read back for confirmation on [...] Locations R1: This test was performed at: [facility], [address] [place] [address], [address] , , [address] Mary HospitalComment on above:Performed By: #### [id number] ####[place] [id number] [place], [place] [id number] Evaluation note* Encounter Date Diagnosis Assessment Notes Treatment Notes Treatment Clinical Notes Jan, Displaced pilon fracture of left tibia, subsequent encounter for closed fracture with malunion (ICD-10 - S82.872P) [employer] [facility] Other 09-29-2021 Evaluation note* Encounter Date Diagnosis Assessment Notes Treatment Notes Treatment Clinical Notes Dec, Displaced pilon fracture of left tibia, subsequent encounter for closed fracture with malunion (ICD-10 - S82.872P) [employer] 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 [...] with tobacco use. Tobacco cessation program at [facility] has been recommended and offered. This discussion was limited to 5 minutes. [email or web address] Other Evaluation [facility]No [facility] Other Evaluation noteNo assessment information available [facility] Work Phone: Evaluhbopt note* Diagnosis Parkinson's disease (HCC)- Primary Paralysis agitans Anxiety Anxiety state, unspecified documented [facility] encounter [facility]* Diagnosis Parkinson's disease- Primary Paralysis agitans documented in this encounter [facility]* Diagnosis Osteoarthritis of left hip- Primary Osteoarthrosis, unspecified whether generalized or localized, pelvic region and thigh Status post total replacement of left hip Post-op pain Other acute postoperative pain Primary osteoarthritis of left hip Primary localized osteoarthrosis, pelvic region and thigh Hyperkalemia Hyperpotassemia Parkinson's disease without dyskinesia, with fluctuating manifestations (HCC)- Primary documented in this [facility]* Diagnosis Osteoarthritis of left hip- Primary Osteoarthrosis, unspecified whether generalized or localized, pelvic region and thigh Status post total replacement of left hip Post-op pain Other acute postoperative pain Primary osteoarthritis of left hip Primary localized osteoarthrosis, pelvic region and thigh Hyperkalemia Hyperpotassemia Anxiety- Primary Anxiety state, unspecified Screening due [facility] Diagnosis Osteoarthritis of left hip- Primary Osteoarthrosis, unspecified whether generalized or localized, pelvic region and thigh Status post total replacement of left hip Post-op pain Other acute postoperative pain Primary osteoarthritis of left hip Primary localized osteoarthrosis, pelvic region and thigh Hyperkalemia Hyperpotassemia Parkinson's disease without dyskinesia, with fluctuating manifestations (HCC) [facility] Diagnosis Osteoarthritis of left hip- Primary [...] legs syndrome (RLS) documented in this encounter [facility] note* Diagnosis Onset Date Resolution Status Admit Date GERD (gastroesophageal reflux disease) acute May 02 11:10am Screening for colon cancer noneactiv e May 02, 2024 11:10am [facility] Work Phone: Evaluation note* Diagnosis Osteoarthritis of left hip- Primary Osteoarthrosis, unspecified whether generalized or localized, pelvic region and thigh Status post total replacement of left hip Post-op pain Other acute postoperative pain Primary osteoarthritis of left hip Primary localized osteoarthrosis, pelvic region and thigh Hyperkalemia Hyperpotassemia Parkinson's disease without dyskinesia, with fluctuating manifestations (HCC) documented in this encounter [facility] note* Diagnosis Osteoarthritis of left hip- Primary Osteoarthrosis, unspecified whether generalized or localized, pelvic region and thigh Status post total replacement of left hip Post-op pain Other acute postoperative pain Primary osteoarthritis of left hip Primary localized osteoarthrosis, pelvic region and thigh Hyperkalemia Hyperpotassemia Parkinson's disease without dyskinesia, with fluctuating manifestations (HCC) documented in this encounter [facility] note* Diagnosis Osteoarthritis of left hip- Primary Osteoarthrosis, unspecified whether generalized or localized, pelvic region and thigh Status post total replacement of left hip Post-op pain Other acute postoperative pain Primary osteoarthritis of left hip Primary localized osteoarthrosis, pelvic region and thigh Hyperkalemia Hyperpotassemia Parkinson's disease without dyskinesia, with fluctuating manifestations (HCC) documented in this encounter [facility] note* Diagnosis Osteoarthritis of left hip- [...] Insomnia, unspecified type documented in this encounter [facility] general Narrative - Reported* Type Description Date Medical History H/o Kidney Stones - sees Dr. Phuc beck Surgical History Appendectomy 20 yrs ago Surgical History Right shoulder arthroscopy 5 yr s ago [email or web address] Other History general Narrative - Reported* Type Description Date Medical History H/o Kidney Stones - sees Dr. Chief Dietitian k Surgical History Appendectomy 20 yrs ago Surgical History Right shoulder arthroscopy 5 yr s ago Surgical History ankle surgery [email or web address] Other Summary Purpose Family History No Family History Records Found Relationship Condition Age at Onset Recorded Date/T meggan Not Specified No pertinent family history Unknown Relationship Condition Age at Onset Recorded Date/T meggan Not Specified No pertinent family history Unknown father Unknown Dementia Unknown Advance Directives No Advanced Directives Records Found Advance Directive Response Recorded Date/ Time Advance Directives No January 17, 2017 11:02am Advance Directive Response Recorded Date/ Time Advance Directives No January 17, 2017 10:02am Hospital Course Note HNO ID: [id number] Author: Camille Martin (Pa) Service: Orthopaedic Surgery Author Type: Physician Cut Off Machine Helper Type: Discharge Summaries Filed: 04/29/2018 2:37 [...] By Contac t Referred To Contact NEUROLOGICAL YAZIDI Diagnoses Parkinson's disease without dyskinesia, with fluctuating manifestations (HCC) RLS (restless legs syndrome) Procedures PROVIDER ORDERED FOLLOW UP OFFICE/OUTPATIENT NEW HIGH MDM 60 MINUTES Heriberto Carrera MD [address] [place] [address] [address] [place] [address] Referral ID Status Reason Start Date Expiration Date Visits Requested Visits Authorized [id number] Authorized PCP Requested Referral 04/21/2024 01/19/2025 1 1 Specialty Diagnoses / Procedures Referred By Contac t Referred To Contact Diagnoses Parkinson's disease without dyskinesia, with fluctuating manifestations (HCC) Neuropathy RLS (restless legs syndrome) Heriberto Carrera MD [address] [place] [address] Referral ID Status Reason Start Date Expiration Date V isits Requested Visits Authorized [id number] Authorized 01/22/2024 04/21/2025 1 1 Specialty Diagnoses / Procedures Referred By Contac t Referred To Contact Diagnoses Parkinson's disease without dyskinesia, with fluctuating manifestations (HCC) Procedures PROVIDER ORDERED FOLLOW UP OFFICE/OUTPATIENT NEW HIGH MDM 60 MINUTES Clair Amaya PA-C [address] [place] [address] Referral ID Status Reason Start Date Expiration Date Visits Requested Visits Authorized [id number] Authorized PCP Requested Referral 05/05/2024 02/02/2025 1 1 Specialty Diagnoses / Procedures Referred By Contac t Referred To Contact Psychology Diagnoses Parkinson's disease Procedures CONSULT TO PSYCHOLOGY OFFICE/OUTPATIENT NEW HIGH MDM 60-74 MINUTES Heriberto Carrera MD [address] [place] [id number] Referral ID Status Reason Start Date Expiration Date Visits Requested Visits Authorized [id number] Pending Review PCP Requested Referral 12/31/2022 12/31/2023 1 1 Specialty Diagnoses / Procedures Referred By Contac t Referred To Contact Diagnoses Anxiety Parkinson's disease (HCC) Procedures PROVIDER ORDERED FOLLOW UP OFFICE/OUTPATIENT NEW HIGH MDM 60-74 MINUTES Heriberto Carrera MD [address] [place] [id number] Referral ID Status Reason Start Date Expiration Date Visits Requested Visits Authorized [id number] Authorized PCP Requested Referral 07/16/2022 10/14/2022 1 1 Additional Source Comments (unrecognized sect ion and content) No Status Records FoundNo Status Records FoundNo Status Records FoundNo Status Records FoundNo Status Records FoundNo Status Records FoundNo Status Records FoundNo Status Records Found INFORMATION SOURCE (unrecogn ized section and content) DATE CREATED AUTHOR 05/12/2018 [facility] DATE CREATED AUTHOR AUTHOR'S ORGANIZ ATION 05/12/2018 [facility] DATE CREATED AUTHOR AUTHOR'S ORGANIZ ATION 11/05/2021 [facility] DATE CREATED AUTHOR AUTHOR'S ORGANIZ ATION 08/27/2022 [facility] DATE CREATED AUTHOR AUTHOR'S ORGANIZ ATION 04/18/2023 [facility] DATE CREATED AUTHOR AUTHOR'S ORGANIZ ATION 04/25/2023 [facility] DATE CREATED AUTHOR AUTHOR'S ORGANIZ ATION 08/01/2023 [facility] DATE CREATED AUTHOR AUTHOR'S ORGANIZ ATION 07/22/2024 [facility] REASON FOR VISIT (unrecogniz ed section and content) Reason Comments Follow Up Specialty Diagnoses / Procedures Referred By Contac t Referred To Contact NEUROLOGICAL YAZIDI Diagnoses Parkinson's disease without dyskinesia, with fluctuating manifestations (HCC) RLS (restless legs syndrome) Procedures PROVIDER ORDERED FOLLOW UP OFFICE/OUTPATIENT NEW HIGH MDM 60 MINUTES Heriberto Carrera MD [address] [place] [phone] Phone: tel: fax: Neurological [facility] [address] [place] [address] Phone: tel:[phone] Referral ID Status Reason Start Date Expiration Date V isits Requested Visits Authorized [id number] Closed PCP Requested Referral 04/21/2024 01/19/2025 1 [...] Onset Date Comments Refill Request 02/01/2024 Reason Onset Date Comments Refill Request 02/25/2024 Reason Onset Date Comments Refill Request 03/09/2024 Reason Comments Established Patient Follow Up Specialty Diagnoses / Procedures Referred By Shira obrien Referred To Contact Diagnoses Parkinson's disease without dyskinesia, with fluctuating manifestations (HCC) Procedures PROVIDER ORDERED FOLLOW UP OFFICE/OUTPATIENT [facility] 60 MINUTES Clair Amaya PA-C [address] [place] [address] Referral ID Status Reason Start Date Expiration Date V isits Requested Visits Authorized [id number] Closed PCP Requested Referral 05/05/2024 02/02/2025 1 1 Reason Onset Date Comments Refill Request 05/08/2024 Reason Onset Date Comments Refill Request 07/14/2024 Reason Comments Release of Information Care Teams (unrecognized sec tion and content) Team Status: Inactive Member Role Status Dates Anna Muñoz NP-C Primary Care Provider Active Vickie Hart DPM MS Attending Provider Active Team Status: Active Member Role Status Dates Anna Muñoz NP-Danielle Primary Care Provider Active Reid Fair DPM Attending Provider Active Team Status: Inactive Member Role Status Dates Anna Muñoz NP-C Primary Care Provider Active Evelin Oliver PA-C Attending Provider Active Team Status: Inactive Member Role Status Dates Anna Muñoz NP-C Primary Care Provider Active James Rodriguez DO Attending Provider Active Team Status: Active Member Role Status Dates Anna Muñoz NP-C Primary Care Provider Active Team Status: Inactive Member Role Status Dates Anna Muñoz NP-C Primary Care Provider Active Reid Fair DPM Attending Provider Active Generator Repairer Relationship Specialty Start Date End Date Rio Alanis [address] [facility] [address] [place] [phone] PCP - General Family Medicine 03/18/17 Princess Che PA-C [address] [id number] Referring Neurology 05/26/22 Generator Repairer Relationship Specialty Start Date End Date Yenkunal Rio Enamorado [address] [phone] PCP - General Family Medicine 03/18/17 Princess Che PA-Danielle [address] [address] Referring Neurology 05/26/22 Generator Repairer Relationship Specialty Start Date End Date Yenelizabethflorencesaloni Rio Enamor[place] [address] [phone] PCP - General Family Medicine 03/18/17 Princess Che PAMarcia [address] [address] Referring Neurology 05/26/22 Generator Repairer Relationship Specialty Start Date End Date Candy Rio Fei [address] [phone] PCP - General Family Medicine 03/18/17 Princess Che PA-Danielle [address] [address] Referring Neurology 05/26/22 Team Status: Inactive Member Role Status Dates Vickie Hart DPM MS Attending Provider Active Start: July 23, 2023 End: July 23, 2023 Generator Repairer Relationship Specialty Start Date End Date Rio Alanis [address] [phone] PCP - General Family Medicine 03/18/17 Princess Che PA-C [address] [id number] Referring Neurology 05/26/22 Generator Repairer Relationship Specialty Start Date End Date Rio Alanis [address] [phone] PCP - General Family Medicine 03/18/17 Princess Che PA-C [address] [phone] Referring Neurology 05/26/22 Generator Repairer Relationship Specialty Start Date End Date Rio Alanis [address] [phone] PCP - General Family Medicine 03/18/17 Princess Che PAMarcia [address] [address] Referring Neurology 05/26/22 Generator Repairer Relationship Specialty Start Date End Date Rio Alanis [address] [phone] PCP - General Family Medicine 03/18/17 Princess Che PA-C [address] [address] Referring Neurology 05/26/22 Generator Repairer Relationship Specialty Start Date End Date Rio Alanis [address] [facility] [address] [place] [phone] PCP - General Family Medicine 03/18/17 Princess Che PA-C [address] [place] [address] Referring Neurology 05/26/22 Generator Repairer Relationship Specialty Start Date End Date Rio Alanis [address] [phone] PCP - General Family Medicine 03/18/17 Princess Che PA-C [address] [address] Referring Neurology 05/26/22 Generator Repairer Relationship Specialty Start Date End Date Rio Alanis [address] [phone] PCP - General Family Medicine 03/18/17 Princess Che PA-C [address] [address] Referring Neurology 05/26/22 Team Status: Active Member Role Status Dates Clare Brandt DO Primary Care Provider Active Team Status: Inactive Member Role Status Dates Clare Brandt DO Primary Care Provid er, Attending Provider Active Start: May 02, 2024 End: May 02, 2024 Generator Repairer Relationship Specialty Start Date End Date Rio Alanis [address] [phone] PCP - General Family Medicine 03/18/17 Princess Che PA-C [address] [address] Referring Neurology 05/26/22 Team Status: Inactive Member Role Status Dates Clare Brandt DO Primary Care Provid er, Attending Provider Active Start: May 06, 2024 End: May 06, 2024 Team Status: Inactive Member Role Status Dates Clare Brandt DO Primary Care Provid er, Attending Provider Active Start: June 20, 2024 End: June 20, 2024 Generator Repairer Relationship Specialty Start Date End Date Rio Alanis [address] [phone] PCP - General Family Medicine 03/18/17 Princess Che PA-C [address] [place] [id number] Referring Neurology 05/26/22 Generator Repairer Relationship Specialty Start Date End Date Rio Alanis [address] [phone] PCP - General Family Medicine 03/18/17 Princess Che PA-C [address] [address] Referring Neurology 05/26/22 Generator Repairer Relationship Specialty Start Date End Date Rio Alanis [address] [phone] PCP - General Family Medicine 03/18/17 Princess Che PA-C [address] [place] [address] Referring Neurology 05/26/22 Goals (unrecognized section and content) Goals may be documented in a n alternate section Source Comments (unrecognize d section and content) In the event this informatio n is protected by the Federal Confidentiality of Alcohol and Drug Abuse Patient Records regulations: The Federal rules restrict any use of the information to criminally investigate or prosecute any alcohol or drug abuse patient.[facility] the event this information is protected by the Federal Confidentiality of Alcohol and Drug Abuse Patient Records regulations: The Federal rules restrict any use of the information to criminally investigate or prosecute any alcohol or drug abuse patient.[facility] the event this information is protected by the Federal Confidentiality of Alcohol and Drug Abuse Patient Records regulations: The Federal rules restrict any use of the information to criminally investigate or prosecute any alcohol or drug abuse patient.[facility] the event this information is protected by the Federal Confidentiality of Alcohol and Drug Abuse Patient Records regulations: The Federal rules restrict any use of the information to criminally investigate or prosecute any alcohol or drug abuse patient.[facility] Hospital[facility] the event this information is protected by the Federal Confidentiality of Alcohol and Drug Abuse Patient Records regulations: The Federal rules restrict any use of the information to criminally investigate or prosecute any alcohol or drug abuse patient.[facility] Hospital[facility] the event this information is protected by the Federal Confidentiality of Alcohol and Drug Abuse Patient Records regulations: The Federal rules restrict any use of the information to criminally investigate or prosecute any alcohol or drug abuse patient.[facility] HospitalIn the event this information is protected by the Federal Confidentiality of Alcohol and Drug Abuse Patient Records regulations: The Federal rules restrict any use of the information to criminally investigate or prosecute any alcohol or drug abuse patient.[facility] HospitalIn the event this information is protected by the Federal Confidentiality of Alcohol and Drug Abuse Patient Records regulations: The Federal rules restrict any use of the information to criminally investigate or prosecute any alcohol or drug abuse patient.[facility] HospitalIn the event this information is protected by the Federal Confidentiality of Alcohol and Drug Abuse Patient Records regulations: The Federal rules restrict any use of the information to criminally investigate or prosecute any alcohol or drug abuse patient.[facility] Hospital[facility] the event this information is protected by the Federal Confidentiality of Alcohol and Drug Abuse Patient Records regulations: The Federal rules restrict any use of the information to criminally investigate or prosecute any alcohol or drug abuse patient.[facility] HospitalIn the event this information is protected by the Federal Confidentiality of Alcohol and Drug Abuse Patient Records regulations: The Federal rules restrict any use of the information to criminally investigate or prosecute any alcohol or drug abuse patient.[facility] Hospital[facility] the event this information is protected by the Federal Confidentiality of Alcohol and Drug Abuse Patient Records regulations: The Federal rules restrict any use of the information to criminally investigate or prosecute any alcohol or drug abuse patient.[facility] HospitalIn the event this information is protected by the Federal Confidentiality of Alcohol and Drug Abuse Patient Records regulations: The Federal rules restrict any use of the information to criminally investigate or prosecute any alcohol or drug abuse patient.[facility] HospitalIn the event this information is protected by the Federal Confidentiality of Alcohol and Drug Abuse Patient Records regulations: The Federal rules restrict any use of the information to criminally investigate or prosecute any alcohol or drug abuse patient.[facility] HospitalIn the event this information is protected by the Federal Confidentiality of Alcohol and Drug Abuse Patient Records regulations: The Federal rules restrict any use of the information to criminally investigate or prosecute any alcohol or drug abuse patient.[facility] HospitalIn the event this information is protected by the Federal Confidentiality of Alcohol and Drug Abuse Patient Records regulations: The Federal rules restrict any use of the information to criminally investigate or prosecute any alcohol or drug abuse patient.[facility] HospitalIn the event this information is protected by the Federal Confidentiality of Alcohol and Drug Abuse Patient Records regulations: The Federal rules restrict any use of the information to criminally investigate or prosecute any alcohol or drug abuse patient.[facility] HospitalIn the event this information is protected by the Federal Confidentiality of Alcohol and Drug Abuse Patient Records regulations: The Federal rules restrict any use of the information to criminally investigate or prosecute any alcohol or drug abuse patient.[facility] HospitalIn the event this information is protected by the Federal Confidentiality of Alcohol and Drug Abuse Patient Records regulations: The Federal rules restrict any use of the information to criminally investigate or prosecute any alcohol or drug abuse patient.[facility] FOR RECORDS PERTAINING TO PATIENTS [...] BE BASED ON THE PRIMARY CLINICAL RECORDS. [facility] [employer] [facility]. provides no warranty or guarantee of the accuracy or completeness of information in this document.
[2024-07-26 08:22] LABS: Basophils Absolute Auto 0.1 10^3/uL (0.0-0.1); Basophils Percent Auto 1.1 % (0.2-2.0); Eosinophils Absolute Auto 0.4 10^3/uL (0.0-0.7); Eosinophils Percent Auto 3.6 % (0.9-7.0); Hemoglobin 14.3 g/dL (14.0-18.0); Immature Granulocytes Abs Auto 0.03 10^3/uL (0.00-0.03); Immature Granulocytes Pct Auto 0.3 % (0.0-0.5); Lymphocytes Absolute Auto 2.1 10^3/uL (1.2-3.8); Lymphocytes Percent Auto 18.8 % (20.5-60.0); Mean Corpuscular HGB Conc 32.5 g/dL (29.9-35.2); Mean Corpuscular Hemoglobin 29.4 pg (25.9-34.0); Mean Corpuscular Volume 90.5 fL (80.0-94.0); Mean Platelet Volume 12.1 fL (9.5-13.5); Monocytes Absolute Auto 0.9 10^3/uL (0.3-0.8); Monocytes Percent Auto 8.4 % (1.7-12.0); Neutrophils Absolute Auto 7.4 10^3/uL (1.4-6.5); Neutrophils Percent Auto 67.8 % (43.0-75.0); Platelet Count 183 10^3/uL (150-450); Red Blood Count 4.86 10^6/uL (4.70-6.10); Red Cell Distribution Width 13.6 % (11.0-15.0)
[2024-07-26 08:57] LABS: Glucometer 97 mg/dL (74-106)
[2024-07-26] MEDS: LACTATED RINGER'S SOLUTION 1,000 ML 50 ML IV ×2 (09:23→10:51)
[2024-07-26] MEDS: CEFAZOLIN SODIUM 2 GM/50 ML D5W PREMIX IV (09:58)
--- NOTE | 2024-07-26 09:59 | XR_ITS ---
The [address] [address] Patient Name: SANDRA CHRISTIAN MRN: [id number] date: 1965 Sex: M Assigned Patient Location: [facility] Current Patient Location: [facility] Accession/Order Number: [id number] Exam Date: 07/26/2024 11:44 Report Date: 07/26/2024 11:48 At the request of: VICKIE HART DPJennifer Procedure: XR foot LT min 3V CLINICAL DATA: Lump after surgery. History of hallux valgus deformity and ulcer. LEFT FOOT - 3 views COMPARISON: 06/21/2024 AP, lateral and oblique views were obtained. There is interval amputation of the first toe at the metatarsal phalangeal joint. There is surrounding subcutaneous air. Prior bunionectomy deformity is seen at the distal first metatarsal. There is redemonstration of amputation of the remaining digits at the proximal phalanges. There are postoperative changes with fusion of the ankle with a steffi that extends from the tibia through the talus and calcaneus. There are associated interlocking screws and underlying degenerative change. This is stable. No developing fractures or dislocation are identified. XR/XR foot LT min 3V IMPRESSION: MULTIFOCAL POSTOPERATIVE CHANGES, MOST RECENT AT THE FIRST TOE WHERE THERE IS ASSOCIATED SUBCUTANEOUS AIR. Impression dictated by: Winnie Carvalho M.D.07/26/2024 11:48 AM Dictation Location: [place] [address] Electronically authenticated by: [id number] Y Date: 07/26/2024 11:48
--- NOTE | 2024-07-26 10:02 | PM.ORONB ---
Brief Operative Note Date of procedure: 07/26/24 Pre-op diagnosis general: Left hallux valgus Post-op diagnosis: same as pre-op Procedure: Procedure performed: Amputation of left great toe at level of metatarsal phalangeal joint Indications for procedure: Patient is a 58-year-old male who is well-known to my practice and at recent appointment patient noted worsening pain and deformity of his left great toe. This has been progressive in nature as the patient has undergone correction of great toe contracture at the interphalangeal joint in the past and has secondarily developed contracture at the metatarsal phalangeal joint. His great toe deformity has led to ulceration and infection which has resolved with local wound care however he remains at high risk for recurrence. Given his daily pain and difficulty with shoe wear patient wished to undergo surgical intervention and we discussed the risks and benefits of deformity correction versus amputation and the patient has elected to undergo amputation. 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 No evidence of deep space infection. Bone quality is within normal limits. Skin edges bled appropriately. Procedure in detail: Patient was identified in preoperative holding by myself which time correct side and site were marked and consent was obtained. Patient was brought back to the operating theater placed on table in supine position. Preoperative antibiotics were started and an ankle tourniquet was placed. General anesthesia was administered. The left foot was prepped and draped in usual sterile fashion and formal timeout was performed. Local anesthesia was administered as a standard first ray block utilizing 10 cc of 1% lidocaine plain and 10 cc of 0.5% Marcaine plain. A fishmouth incision was placed on the great toe. Full-thickness incision was taken down to bone to the level of the metatarsal phalangeal joint and all soft tissue attachments were released allowing disarticulation of the digit. The amputated digit was passed back table and sent for specimen. Tendinous structures were cut proximally. Surgical site was irrigated with normal saline. All tissue planes appeared healthy and the tourniquet was deflated with a prompt hyperemic response. Skin edges bled appropriately. And the surgical site was closed in layers. A dry sterile dressing was applied followed by a cam boot. Postoperative plan: Discharge home under mother's care Written prescriptions were placed in chart Ice and elevation Patient may change surgical bandage within the next 3 days then daily No soaking or submerging Follow-up in wound center in 1 week for incision check Implants: none Anesthesia: General-LMA Surgeon: Kash [facility] [employer] Director: Annetta Crawford Estimated blood loss (mL): 10 Pathology: other (hallux amputation) Condition: stable Disposition: PACU
[2024-07-26] MEDS: LIDOCAINE HCL 1% 100 MG/10 ML MDV INJ (10:35)
[2024-07-26] MEDS: BUPIVACAINE HCL 0.5% PF 50 MG/10 ML VIAL INJ (10:35)
[2024-07-26 11:26] LABS: Glucometer 90 mg/dL (74-106)
[2024-07-26] MEDS: HYDROMORPHONE HCL 0.5 MG/0.5 ML SYRINGE IV (11:33)
== END 2024-07-26 12:33 | disposition home or self-care (01) ==
PROVIDERS: Anesthesiology; PCP Family Medicine; Visit Provider Podiatrist Foot & Ankle Surgery
PROC: (CPT 01480; principal; 2024-07-26 10:00)
DX: M20.12 Hallux valgus (acquired), left foot (principal); Z87.891 Personal history of nicotine dependence; Z96.649 Presence of unspecified artificial hip joint; G20.A1 Parkinson's disease without dyskinesia, without mention of fluctuations; Z79.899 Other long term (current) drug therapy
CPT/HCPCS: 01480; 28820; 36415; 73630; 82948; 85025; 88305; 88311; J0665; J0690; J1100; J1171; J1885; J2250; J2371; J2405; J2704; J3010

== ENCOUNTER 2024-07-27 08:30 | Outpatient (OUT) | payer OTHER, SELFPAY ==
--- OUTSIDE RECORDS SUMMARY | 2024-07-27 08:45 | XMS_ITS | CCD ---
Author Organization [facility] CliniSyma Care Team Providers Care Rn Med Surg Name Role Phone SUMAN NGUYEN JR Admitting Unavailable SUMAN NGUYEN JR Attending Unavailable SUMAN NGUYEN JR Referring Unavailable KATE MUELLER (NANCIE) Referring Unava ilable SUMAN NGUYEN JR Admitting Unavailable SUMAN NGUYEN JR Attending Unavailable Michael Shah Unavailable Andi Eason Unavailable JALYN Muñoz Primary Care Provider DO James Rodriguez Attending Provider EDE Fair Attending Provider NANCIE Oliver Attending Provider EDE Hart Attending Provider [phone] JALYN Muñoz Primary Care Provider Roi Alanis Primary Care Provider [phone] Princess Che PA-C Unavailable ANNA MUÑOZ Primary Care Unavailable SHIRLEY CASTILLO V Consulting Unavailable KAR RAPHAEL Admitting Unavailable KAR RAPHAEL Attending Unavailable KAR RAPHAEL Consulting Unavailable DR KENYATTA WALTON Admitting Unavailable ANGELITA Nick, DR YOU Attending Unavailable ANNA MUÑOZ Primary Care Unavailable DR KENYATTA WALTON Consulting Unavailable Saurav Kerns Consulting Unavailable DR GINNA MORALES Consulting Unavailable PAN LONG Consulting Unavailable DIAB ., AFTAB Consulting Unavailable ANNA MUÑOZ Primary Care Unavailable VICKIE HART Attending Unavailable VICKIE HART Consulting Unavailable VICKIE HART Admitting Unavailable SEB GRAVES Consulting Unavailable SHIRLEY CASTILLO V Consulting Unavailable ANNA MUÑOZ Primary Care Unavailable IJEOMA, KAR Admitting Unavailable IJEOMA, KAR Attending Unavailable IJEOMA, KAR Consulting Unavailable WANDA, [facility] Primary Care Unavailable HIGHLANDER, PETER D Admitting Unavailable Saurav Kerns Consulting Unavailable HIGHLANDER, PETER D Attending Unavailable HIGHLANDER, VICKIE D Consulting Unavailable Saurav Kerns Consulting Unavailable HIGHLANDER, PETER D Attending Unavailable HIGHLANDER, PETER D Admitting Unavailable HIGHLANDER, PETER D Consulting Unavailable WANDA, [facility] Primary Care Unavailable HIGHLANDER, VICKIE Garibay Consulting Unavailable HIGHLANDER, PETER D Attending Unavailable HIGHLANDER, PETER D Admitting Unavailable KARLA MANZANO Consulting Unavailable ADY ., PAN MATTHEW Consulting Unavailable SHARP, CANDICE Consulting Unavailable CHE II, CLARE Consulting Unavailable OTT ., DR FARRUKH Kimble Admitting Unavailable [facility], [facility] Primary Care Unavailable [facility] Consulting Unavailable OTT ., DR [...] D Attending Unavailable Saurav Kerns Consulting Unavailable [facility], [facility] Primary Care Unavailable HIGHLANDER, PETER D Attending Unavailable HIGHLANDER, PETER D Admitting Unavailable HIGHLANDER, PETER D Consulting Unavailable OTT ., DR FARRUKH Kimble Admitting Unavailable [facility], [facility] Primary Care Unavailable OTT ., DR FARRUKH Kimble Attending Unavailable OTT ., DR FARRUKH Kimble Consulting Unavailable Saurav Kerns Consulting Unavailable WANDA, [facility] Primary Care Unavailable HIGHLANDER, PETER D Attending Unavailable HIGHLANDER, PETER D Admitting Unavailable HIGHLANDER, PETER D Consulting Unavailable SHIRLEY CASTILLO V Consulting Unavailable HIGHLANDER, PETER D Attending Unavailable HIGHLANDER, PETER D Admitting Unavailable HIGHLANDER, PETER D Consulting Unavailable Saurav Kerns Consulting Unavailable HIGHLANDER, PETER D Attending Unavailable HIGHLANDER, PETER D Admitting Unavailable HIGHLANDER, PETER D Consulting Unavailable OTT ., DR FARRUKH Kimble Consulting Unavailable WANDA, ANNA Primary Care Unavailable NAMRATA ., DR FARRUKH Kimble Admitting Unavailable VICKIE HART Referring Unavailable NAMRATA ., DR FARRUKH Kimble Attending Unavailable VICKIE HART Attending Unavailable VICKIE HART Admitting Unavailable WANDA, ANNA S Primary Care Unavailable LIOR RAMIREZ Attending Unavailable SUMAN NGUYEN Referring Unavailable WANDA, ANNA S Primary Care Unavailable EDE Hart Attending Provider [phone] Vickie Hart Attending Unavailable Vickie Hart Admitting Unavailable Rio Alanis Primary Care Provider Clare Brandt DO Primary Care Provider Clare Brandt DO Attending Provider [phone] TITA MARIN Attending Unavailable LAURIE, UMAR A Referring Unavailable SCHLOTTERRIO GUALLPA Primary Care Unavailab le MONIQUE, CLAIR Referring Unavailable SCHLOTTERERRIO Primary Care Unavailab le LAURIE, UMAR A Attending Unavailable MONIQUE, CLAIR Referring Unavailable SCHLOTTERRIO GUALLPA Primary Care Unavailab miranda AMAYA, CLAIR Attending Unavailable SELF Referring Unavailable RIO ALANIS Primary Care Unavailab le Vickie Hart DPM Attending Provider Allergies Allergy Classification Reported Allergen(s) Allergy Type Date of Onset Reaction(s) Facility Glycopeptides (antibiotic) (1 source) Vancomycin Drug Allergy 2 Other: See Comments [facility] (20 sources) Vancomycin; Translations: [VANCOMYCIN] Drug Allergy 2 Other: See Comments [facility] (1 source) Vancomycin Drug Allergy 2 [facility] Medications Current Medications Medication Drug Class(es) [...] Active amantadine hydrochloride 100 mg oral capsule (10 sources) Influenza A M2 Protein Inhibitor Start: 04-21-19 End: 10-19-19 take 1 capsule by mouth twice daily Amantadine Hcl 100 mg capsule Active 100 MG PO Twice daily May 02, 2024 1:00am apixaban 2.5 mg oral tablet (8 sources) Factor Xa Inhibitor Eliquis 2.5 MG as directed Orally bid Active carbidopa 25 mg / levodopa 100 mg extended release oral tablet (20 sources) Aromatic Amino Acid [...] 3 05/09/2024 Active Start: 12-31-2022 End: 07-14-2024 take 1 tablet by mouth five times daily Carbidopa-Levodopa 25-100 mg tablet Active 1 TAB PO .COMPLEX May 02, 2024 1:00am 1 tab orally 5 times daily; Start: 06-21-2022 End: 12-31-2022 take 1 tablet [...] entacapone 200 mg oral tablet (1 source) Hwipkice-J-Ynbymogog nsferase Inhibitor take 1 tablet by mouth every twelve hours Entacapone 200 MG 1 tablet Orally Twice a day Active famotidine 40 mg oral tablet (3 sources) Histamine-2 Receptor Antagonist Start: take 1 tablet by mouth once daily as needed for gastroesophageal reflux disease Famotidine 40 mg tablet Active 40 MG PO Daily as needed for heartburn 90 May 02, 2024 1:00am ferrous sulfate 325 mg oral tablet (3 sources) Start: take 1 tablet by mouth once daily Ferrous Sulfate 325 mg (65 mg iron) tablet Active 325 MG PO Daily May 02, 2024 1:00am ibuprofen 200 mg oral tablet (20 sources) Nonsteroidal Anti-inflammatory Drug Start: 025 take 1 tablet by mouth once daily [...] by mouth. loratadine 10 mg oral tablet (2 sources) Start: take 1 tablet by mouth once daily Loratadine 10 mg tablet Active 10 MG PO Daily June 20, 2024 12:00am methylPREDNISolone 4 mg oral tablet (2 sources) Corticosteroid Start: take 1 tablet by mouth once Methylprednisolone (Medrol (Juanito)) 4 mg tablets,dose pack Active 0 PO per package directions June 20, 2024 12:00am PO PER PKG DIR for 6 days mirtazapine 15 mg oral tablet (20 sources) Start: 024 End: take 1 tablet by mouth once daily at bedtime Mirtazapine 15 mg tablet Active 15 MG PO Daily at bedtime May 02, 2024 1:00am Start: 11-03-2022 End: 05-02-2023 mirtazapine (REMERON) 15 [...] Daily October 08, 2020 12:00am Multivitamin Tablet (3 sources) Start: 1 take 1 tablet by mouth once daily Multivitamin Tablet Active 1 TAB PO Daily October 08, 2020 12:00am Start: 06-28-2021 take 1 tablet by santa th once [...] 1 capsule by mouth three times daily Pregabalin (Lyrica) 50 mg capsule Active 50 MG PO Three times daily May 02, 2024 1:00am End: 04-21-2024 pregabalin (LYRICA) 25 mg ca [...] six hours as needed for pain Hydrocodone-Acetaminophen ([place]) 5-325 mg tablet Discontinued 1 TAB PO EVERY 4-6 HOURS as needed for pain January 17, 2017 April 13, 2018 6:05pm take 1 tablet by santa th every six hours as needed [place] 5-325 MG 1 tablet as needed Orally every 6 hrs Active ascorbic acid 500 mg oral tablet (7 sources) Vitamin C Start: 10-18-2020 End: 05-02-2024 take 1 tablet by mouth once daily Ascorbic Acid (Vitamin C) (Vitamin C) 500 mg tablet Discontinued 500 MG PO Daily October 18, 2020 12:00am May 02, 2024 12:37pm aspirin 81 mg delayed release oral tablet (12 sources) Platelet Aggregation Inhibitor, Nonsteroidal Anti-inflammatory Drug [...] on above: TAKE 1 CAPSULE BY [facility] TWICE A DAY cyclobenzaprine hydrochloride 10 mg [...] ml enoxaparin sodium 100 mg/ml prefilled syringe (14 sources) Low Molecular Weight Heparin Start: End: Enoxaparin (Lovenox) 40 mg/0.4 mL syringe Discontinued 40 MG SUBCUT Daily October 18, 2020 7:32am October 23, 2020 3:31pm naproxen 500 mg oral tablet (12 sources) Nonsteroidal Anti-inflammatory Drug Start: 7 End: [...] 2024 12:36pm predniSONE 20 mg oral tablet (12 sources) Start: 01-17-2017 End: 04-13-2018 take 3 [...] initial encounter] Onset: 02-02-2023 Episodic Esophageal disorders (6 sources) Gastroesophageal reflux disease; Translations: [Gastro-esophageal reflux [...] Phys. 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] Onset: 07-23-2022 Episodic Other aftercare (1 source) Other care home (current) drug therapy; Translations: [[facility]IV[facility] CURRENT DRUG THERAPY] Onset: 07-23-2022 Episodic Other [...] conditions (not mental disorders or infectious disease) (9 sources) Screening due; Translations: [Encounter for screening, unspecified] Onset: 04-21-2024 02-25-2024 Episodic Other skin disorders (2 sources) Rash and other nonspecific skin eruption; Translations: [Rash and other nonspecific skin eruption] 06-20-2024 Episodic Parkinson`s disease (14 sources) Parkinson's disease; Translations: [Parkinson's disease] Onset: 07-23-2022 Chronic Parkinson`s disease (1 source) Parkinson`s disease; Translations: [Parkinson's disease without dyskinesia, with fluctuating manifestations (HCC)] Onset: 07-20-2024 Poisoning by other medications and drugs (7 sources) Poisoning by unspecified drugs, medicaments and [...] Onset: 02-28-2022 Episodic Other aftercare (1 source) [facility] (current) use of antibiotics Onset: 10-24-2021 Resolved: 10-24-2021 Episodic Other bone disease and musculoskeletal deformities (1 source) Other specified disorders of bone density and structure, left ankle and foot; Translations: [OT D/O BONE DEN STRUCT LT ANK FOOT] [...] Test Name Value Interpretation Reference Range Facility [facility] SANDR[facility] ([id number]) 1965 M Date Time Provider Department 07/18/24 HERIBERTO CARRERA NREUS2 During your visit today, we recorded the following information about you: Jocelyn Flower 07/18/2024 12:02 PM Signed Pt is having surgery coming up and they need the last OV note faxed over. Faxed to [facility] at [phone]. Keena Shafer 07/20/2024 11:39 AM Signed OV note faxed again to [facility] at [phone] since they were having fax issues. Keena Shafer 07/21/2024 2:02 PM Addendum As requested, 04/21/24 OV note faxed to [phone]/[facility] since [facility] fax having issues. Allergies As [...] Status:Closed by JOCELYN FLOWER on 07/18/24 [facility] Cholesterol [Mass/volume] in Serum or PlasmaOrdered By: Clare Brandt on 05-06-2024 Cholesterol [Mass/Vol] Cholesterol [Mass/volume] in Serum or Plasma 140-200 [facility] Comment on above: Chol less than 200 m g/dl low riskChol 201-239 mg/dl borderline riskChol 240 mg/dl and greater high risk Cholesterol in HDL [Mass/vol ume] in Serum or PlasmaOrdered By: Clare Brandt on 05-06-2024 Cholesterol in HDL [Mass/Vol] Serum or plasma high density lipoprotein (HDL) cholesterol measurement 23- [facility] Comment on above: HDL CHOL ATP-III CLA SSIFICATION Cardiovascular RiskHDL > or equal to 60 mg/dL LOWHDL < 40 mg/dL HIGH Cholesterol in LDL Calc [Mas s/Vol]Ordered By: Clare Brandt on 05-06-2024 Cholesterol in LDL [Mass/Vol] Cholesterol in LDL [Mass/volume] in Serum or Plasma by calculation 0-100 [facility] Comment on above: LDL ATP III CLASSIFI CATIONLDL less than 100 mg/dL OptimalLDL 100-129 mg/dL Near or above optimalLDL 130-159 mg/dL Borderline highLDL 160-189 mg/dL HighLDL greater than 189 mg/dL Very high Cholesterol in VLDL Calc [Ma ss/Vol]Ordered By: Clare Brandt on 05-06-2024 Cholesterol in VLDL [Mass/Vol] Cholesterol in VLDL [Mass/volume] in Serum or Plasma by calculation [facility] Prostate specific Ag [Mass/v olume] in Serum or PlasmaOrdered By: Clare Brandt on 05-06-2024 Prostate specific Ag [Mass/Vol] Prostate specific Ag [Mass/volume] in Serum or Plasma 0.000-4.000 [facility] Comment on above: Serial tumor marker results determined by assays using different manufacturers or methods may not be comparable.[facility]ly [facility] Laboratory heater installer and method:[employer] DXI, CHEMILUMINESCENT IMMUNOASSAY. Serum or plasma total choles terol/high density lipoprotein (HDL) cholesterol mass ratOrdered By: Clare Brandt on 05-06-2024 Cholesterol.total/Cho lesterol in HDL [Mass ratio] Serum or plasma total cholesterol/high density lipoprotein (HDL) cholesterol mass rat <5.0 [facility] Triglyceride [Mass/volume] i n Serum or PlasmaOrdered By: Clare Brandt on 05-06-2024 Triglyceride [Mass/Vol] Triglyceride [Mass/volume] in Serum or Plasma 0-149 [facility] Comment on above: TRIG ATP III CLASSIF ICATIONTRIG less than 150 mg/dL NormalTRIG 150-199 mg/dL Borderline highTRIG 200-500 mg/dL High TRIG greater than 500 mg/dL Very highStandard traceable to the Center for Disease Conrtrol and Prevention (CDC) test method. CBC panel Auto (Bld)on 04-21 Erythrocyte distribution width (RBC) [Ratio] 14.2 % Normal 11.5-15.0 [facility] Comment on above: Order Comment: Speci men Type: BLOOD SPECIMEN Ordering Facility: [facility] Address: [address] [place] [address] Performed By: #### 5 8410-2 #### [facility] CLIA [id number] [address] [place] [address] [place] Hematocrit (Bld) [Volume fraction] 43.9 % Normal 39.0-51.0 [facility] Comment on above: Order Comment: Bam chamberlain Type: BLOOD SPECIMEN Ordering Facility: [facility] Address: [address] [place] [address] Performed By: #### 5 8410-2 #### [facility] CLIA [id number] [address] [place] [address] [place] Hemoglobin (Bld) [Mass/Vol] 14.0 g/dL Normal 13.0-17.0 [facility] Comment on above: Order Comment: Speci men Type: BLOOD SPECIMEN Ordering Facility: [facility] Address: [address] [place] [address] Performed By: #### 5 8410-2 #### [facility] CLIA [id number] [address] [place] [address] [place] MCH (RBC) [Entitic mass] 29.4 pg Normal 26.0-34.0 [facility] Comment on above: Order Comment: Speci men Type: BLOOD SPECIMEN Ordering Facility: [facility] Address: [address] [place] [address] Performed By: #### 5 8410-2 #### [facility] CLIA [id number] [address] [place] [address] [place] MCHC (RBC) [Mass/Vol] 31.9 g/dL Normal 30.5-36.0 [facility] Comment on above: Order Comment: Speci men Type: BLOOD SPECIMEN Ordering Facility: [facility] Address: [address] [place] [address] Performed By: #### 5 8410-2 #### [facility] CLIA [id number] [address] [place] [address] [place] MCV (RBC) [Entitic vol] 92.2 fL Normal 80.0-100.0 [facility] Comment on above: Order Comment: Speci men Type: BLOOD SPECIMEN Ordering Facility: [facility] Address: [address] [place] [address] Performed By: #### 5 8410-2 #### [facility] CLIA [id number] [address] [place] [address] [place] Nucleated RBC (Bld) [#/Vol] 10*3/uL Normal <0.01 [facility] Comment on above: Order Comment: Speci men Type: BLOOD SPECIMEN Ordering Facility: [facility] Address: [address] [place] [address] Performed By: #### 5 8410-2 #### [facility] CLIA [id number] [address] [place] [address] [place] Platelet mean volume (Bld) [Entitic vol] 11.8 fL Normal 9.0-12.7 [facility] Comment on above: Order Comment: Speci men Type: BLOOD SPECIMEN Ordering Facility: [facility] Address: [address] [place] [address] Performed By: #### 5 8410-2 #### [facility] CLIA [id number] [address] [place] [address] [place] Platelets (Bld) [#/Vol] 217 10*3/uL Normal 150-400 [facility] Comment on above: Order Comment: Speci men Type: BLOOD SPECIMEN Ordering Facility: [facility] Address: [address] [place] [address] Performed By: #### 5 8410-2 #### [facility] CLIA [id number] [address] [place] [address] [place] RBC (Bld) [#/Vol] 4.76 10*6/uL Normal 4.20-6.00 [facility] Comment on above: Order Comment: Speci men Type: BLOOD SPECIMEN Ordering Facility: [facility] Address: [address] [place] [address] Performed By: #### 5 8410-2 #### [facility] CLIA [id number] [address] [place] [address] [place] WBC (Bld) [#/Vol] 8.89 10*3/uL Normal 3.70-11.00 [facility] Comment on above: Order Comment: Speci men Type: BLOOD SPECIMEN Ordering Facility: [facility] Address: [address] [place] [address] Performed By: #### 5 8410-2 #### [facility] CLIA [id number] [address] [place] [address] [place] CNOVon 04-21-2024 CNOV Office Visit (NREUS2 ) SANDRA BOSS ([id number]) 1965 M Date Time Provider Department 04/21/24 11:00 AM HERIBERTO CARRERA NREUS2 During your visit today, we recorded the following information about you: Height 1.829 m Heriberto Carrera MD 04/21/2024 4:09 PM Signed [facility] - FOLLOW UP EVALUATION Rio Alanis MD [address] [facility] [address] [facility] [id number] Dear Rio Alanis MD: I had the [...] Row [facility] from 02/03/2024 in [facility] from 11/03/2022 in [facility] T Score 39.8 39.8 [...] good nutr (more content not included)... Normal [facility] CREATININE BLDon 04-21-2024 Creatinine [Mass/Vol] 0.84 mg/dL Normal 0.73-1.22 [facility] Comment on above: Order Comment: Bam chamberlain Type: BLOOD SPECIMEN Ordering Facility: [facility] Address: [address] [place] [address] Performed By: #### 5 0190-8, 33027-6, CRET1, 2275-4 #### [facility] CLIA [id number] [address] [place] [address] [place] [facility] Creatinine and Glomerular filtration rate.predicted panel (S/P/Bld) 101 mL/min/1.73m??? Normal >=60 [facility] Comment on above: Order Comment: Bam chamberlain Type: BLOOD SPECIMEN Ordering Facility: [facility] Address: [address] [place] [address] Result Comment: Megan mated Glomerular Filtration Rate [...] actual GFR. Performed By: #### 5 0190-8, 51396-1, CRET1, 6-4 #### [facility] CLIA [id number] [address] [place] [address] [place] FERRITINon 04-21-2024 Ferritin [Mass/Vol] 109.0 ng/mL 30.3 - 5 65.7 ng/mL [facility] Ferritin SerPl-mCncon 2024 Ferritin [Mass/Vol] 109.0 ng/mL Normal 30.3-565.7 [facility] Comment on above: Order Comment: Speci men Type: BLOOD SPECIMEN Ordering Facility: [facility] Address: [address] [place] [address] Performed By: #### 5 0190-8, 97725-8, CRET1, 2275-4 #### [facility] CLIA [id number] [address] [place] [address] [place] Ferritin [Mass/Vol]on 2024 Interpretation and review of laboratory results Normal [facility] Hepatic function 2000 panelo n 04-21-2024 Albumin [Mass/Vol] 4.2 g/dL Normal 3.9-4.9 [facility] Comment on above: Order Comment: Speci men Type: BLOOD SPECIMEN Ordering Facility: [facility] Address: [address] [place] [address] Performed By: #### 5 0190-8, 18439-7, CRET1, 2275-4 #### [facility] CLIA [id number] [address] [place] [address] [place] ALP [Catalytic activity/Vol] 114 U/L High 38-113 [facility] Comment on above: Order Comment: Speci men Type: BLOOD SPECIMEN Ordering Facility: [facility] Address: [address] [place] [address] Performed By: #### 5 0190-8, 74645-5, CRET1, 2275-4 #### [facility] CLIA [id number] [address] [place] [address] [place] ALT [Catalytic activity/Vol] 8 U/L Low 10-54 [facility] Comment on above: Order Comment: Speci men Type: BLOOD SPECIMEN Ordering Facility: [facility] Address: [address] [place] [address] Performed By: #### 5 0190-8, 16433-2, CRET1, 2275-07 #### [facility] CLIA [id number] [address] [place] [address] [place] AST [Catalytic activity/Vol] 19 U/L Normal 14-40 [facility] Comment on above: Order Comment: Speci men Type: BLOOD SPECIMEN Ordering Facility: [facility] Address: [address] [place] [address] Performed By: #### 5 0190-8, 92549-6, CRET1, 2275-07 #### [facility] CLIA [id number] [address] [place] [address] [place] Bilirubin [Mass/Vol] 0.3 mg/dL Normal 0.2-1.3 [facility] Comment on above: Order Comment: Speci men Type: BLOOD SPECIMEN Ordering Facility: [facility] Address: [address] [place] [address] Performed By: #### 5 0190-8, 65420-8, CRET1, 2275-07 #### [facility] CLIA [id number] [address] [place] [address] [place] Bilirubin.conjugated [Mass/Vol] 0.1 mg/dL Normal <0.3 [facility] Comment on above: Order Comment: Speci men Type: BLOOD SPECIMEN Ordering Facility: [facility] Address: [address] [place] [address] Performed By: #### 5 0190-8, 81183-4, CRET1, 2275-07 #### [facility] CLIA [id number] [address] [place], [place] [address] [place] Protein [Mass/Vol] 6.9 g/dL Normal 6.3-8.0 [facility] Comment on above: Order Comment: Speci men Type: BLOOD SPECIMEN Ordering Facility: [facility] Address: [address] [place] [address] Performed By: #### 5 0190-8, 65423-9, CRET1, 2275-4 #### [facility] CLIA [id number] [address] [place] [address] [place] Iron and Iron binding capaci ty panelon 04-21-2024 Interpretation and review of laboratory results Normal [facility] Iron [Mass/Vol] 68 ug/dL 41 - 186 ug/dL [facility] Iron binding capacity [Mass/Vol] 334 ug/dL 232 - 386 ug/dL [facility] Iron/TIBC [Molar ratio] 20.4 % 15.0 - 57.0 % [facility] Iron [Mass/Vol] 68 ug/dL Normal 41-186 [facility] Comment on above: Order Comment: Speci men Type: BLOOD SPECIMEN Ordering Facility: [facility] Address: [address] [place] [address] Performed By: #### 5 0190-8, 89314-1, CRET1, 2275-4 #### [facility] CLIA [id number] [address] [place] [address] [place] [place] Iron binding capacity [Mass/Vol] 334 ug/dL Normal 232-386 [facility] Comment on above: Order Comment: Speci men Type: BLOOD SPECIMEN Ordering Facility: [facility] Address: [address] [place] [address] Performed By: #### 5 0190-8, 54348-3, CRET1, 2275-4 #### [facility] CLIA [id number] [address] [place] [address] [place] Iron/TIBC [Molar ratio] 20.4 % Normal 15.0-57.0 [facility] Comment on above: Order Comment: Speci men Type: BLOOD SPECIMEN Ordering Facility: [facility] Address: [address] [place] [address] Performed By: #### 5 0190-8, 14972-0, CRET1, 2276-4 #### [facility] CLIA [id number] [address] [place], [place] [id number] [facility] [place] 07-23-2023 L Specimen: [id number] Received: 07/27/23 Status: SOUCamille Req Num: [id number] Spec Type: Surgical Subm Dr: Vickie Hart DPM, [place] Tissues: A DIGIT AMPUTATION (LEFT 2ND TOE) B DIGIT AMPUTATION (LEFT 3RD TOE) Procedures: HE/7, Gross/Micro L4/2, Decalcification/2 Age/ Patient Sex Location Account Attending Physician Sandra Boss 57/M [place] [id number] Vickie Hart DPM, MS SPEC NUM: [id number] RECD: 07/27/23 STATUS: GABRIELA GURJIT NUM: [id number] MEGHNA: 07/23/[address]: Vickie Hart DPM, [place] ENTERED: 07/27/23 [facility] DR: Brandan Hodge SPEC TYPE: Surgical DEPT: [...] Gross photos are taken. The -------- Specimen: [id number] Received: 07/27/23 Status: GABRIELA Gurjit Num: [id number] Spec Type: Surgical Subm Dr: Vicike Hart,DPJennifer, [place] Tissues: A DIGIT AMPUTATION (LEFT 2ND TOE) B DIGIT AMPUTATION (LEFT 3RD TOE) Procedures: RENÉE/Michael, Gross/Micro L4/2, Decalcification/2 -------- Patient: Sandra Boss [id number] (Continued) -------- Specimen: [id number] Received: 07/27/23 (Continued) Gross Description (Continued) Signed (signature on file) Oli Roque MD 07/30/23 0670 -------- Specimen: [id number] Received: 07/27/23 Status: GABRIELA Rubio Num: [id number] Spec Type: Surgical Subm Dr: Vickie Hart,EDE, [place] Tissues: A DIGIT AMPUTATION (LEFT 2ND TOE) B DIGIT AMPUTATION (LEFT 3RD TOE) Procedures: HE/7, Gross/Micro L4/2, Decalcification/2 -------- Patient: Sandra Boss [id number] (Continued) -------- Specimen: [id number] Received: 07/27/23 (Continued) Gross Description (Continued) specimen [...] no identifiable lesions. Gross photos are taken. [employer] sections are submitted as follows: B1:Skin and [...] CP (more content not included)... Normal [facility] C-Reactive Proteinon 024 CRP [Mass/Vol] mg/L Normal 0.0-5.0 [facility] Comment on above: Performed By: #### C RP #### [facility] [address] [facility] [address] Sedimentation Rateon 024 Sedimentation Rate 2 mm Normal 0-20 [facility] Comment on above: Result Comment: ESR Units mm/Hr Performed By: #### E SR #### [facility] [address] [place] [address] XR HIP 2-3 VW W PELVIS RIGHT [...] Suman Nguyen MD 04/24/23 Final result Normal [facility] CBC With Platelet and Differ entialon 03-27-2023 Anisocytosis Ql (Bld) 1+ Normal [facility] Comment on above: Performed By: #### C BCWD #### [facility] [address] [place] [address] Atypical Lymphs 4 % Normal [facility] Comment on above: Performed By: #### C BCWD #### [facility] [address] [place] [address] Basophils (Bld) [#/Vol] 0.1 10*3/uL Normal 0.0-0.2 [facility] Comment on above: Performed By: #### C BCWD #### [facility] [address] [place] [address] Basophils/100 WBC (Bld) 1.0 % Normal [facility] Comment on above: Performed By: #### C BCWD #### [facility] [address] [place] [address] Eosinophils (Bld) [#/Vol] 0.1 10*3/uL Normal 0.0-0.7 [facility] Comment on above: Performed By: #### C BCWD #### [facility] [address] [place] [address] Eosinophils/100 WBC (Bld) 1.0 % Normal [facility] Comment on above: Performed By: #### C BCWD #### [facility] [address] [place] [address] Lymphocytes (Bld) [#/Vol] 1.4 10*3/uL Normal 1.0-4.8 [facility] Comment on above: Performed By: #### C BCWD #### [facility] [address] [place] [address] Lymphocytes/100 WBC (Bld) 8.0 % Normal [facility] Comment on above: Performed By: #### C BCWD #### [facility] [address] [place] [address] Monocytes (Bld) [#/Vol] 0.4 10*3/uL Normal 0.2-0.8 [facility] Comment on above: Performed By: #### C BCWD #### [facility] [address] [place] [address] Monocytes/100 WBC (Bld) 2.9 % Normal [facility] Comment on above: Performed By: #### C BCWD #### [facility] [address] [place] [address] Neutrophils (Bld) [#/Vol] 9.9 10*3/uL Critically high 1.4-6.5 [facility] Comment on above: Performed By: #### C BCWD #### [facility] [address] [place] [address] Neutrophils/100 WBC (Bld) 84.0 % Normal [facility] Comment on above: Performed By: #### C BCWD #### [facility] [address] [place] [address] Ovalocytes 1+ Normal [facility] Comment on above: Performed By: #### C BCWD #### [facility] [address] [place] [address] Platelet Slide Review Decreased Normal [facility] Comment on above: Performed By: #### C BCWD #### [facility] [address] [place] [address] Poikilocytosis 2+ Normal [facility] Comment on above: Performed By: #### C BCWD #### [facility] [address] [place] [address] Slide Review see below Normal [facility] Comment on above: Result Comment: Slid e review agrees with reported results Performed By: #### C BCWD #### [facility] [address] [place] [address] Smudge Cells 3.[address] [facility] Comment on above: Performed By: #### C BCWD #### [facility] [address] [place] [address] Erythrocyte distribution width (RBC) [Ratio] 14.1 % Normal 11.5-14.5 [facility] Comment on above: Performed By: #### C BCWD #### [facility] [address] [place] [address] Hematocrit (Bld) [Volume fraction] 43.3 % Normal 42.0-52.0 [facility] Comment on above: Performed By: #### C BCWD #### [facility] [address] [place] [address] Hemoglobin (Bld) [Mass/Vol] 14.1 g/dL Normal 14.0-18.0 [facility] Comment on above: Performed By: #### C BCWD #### [facility] [address] [place] [address] MCH (RBC) [Entitic mass] 30.0 pg Normal 27.0-31.3 [facility] Comment on above: Performed By: #### C BCWD #### [facility] [address] [place] [address] MCHC 32.6 % Low 33.0-37.0 [facility] Comment on above: Performed By: #### C BCWD #### [facility] [address] [place] [address] MCV (RBC) [Entitic vol] 92.1 fL Normal 79.0-92.2 [facility] Comment on above: Performed By: #### C BCWD #### [facility] [address] [place] [address] Platelets (Bld) [#/Vol] 156 10*3/uL Normal 130-400 [facility] Comment on above: Performed By: #### C BCWD #### [facility] [address] [place] [address] RBC (Bld) [#/Vol] 4.70 10*6/uL Normal 4.70-6.10 [facility] Comment on above: Performed By: #### C BCWD #### [facility] [address] [place] [address] WBC (Bld) [#/Vol] 11.8 10*3/uL Critically high 4.8-10.8 [facility] Comment on above: Performed By: #### C BCWD #### [facility] [address] [place] [address] CT ABDOMEN PELVIS WO CONTRAS Ton 03-27-2023 [...] Clare King MD 03/27/23 Final result Normal [facility] Comprehensive Metabolic Pane bolivar 03-27-2023 Albumin [Mass/Vol] 4.1 g/dL Normal 3.5-4.6 [facility] Comment on above: Performed By: #### C MP #### [facility] [address] [place] [address] ALP [Catalytic activity/Vol] 107 U/L Critically high 35-104 [facility] Comment on above: Performed By: #### C MP #### [facility] [address] [place] [address] ALT [Catalytic activity/Vol] U/L Normal 0-41 [facility] Comment on above: Performed By: #### C MP #### [facility] [address] [place] [address] Anion gap [Moles/Vol] 8 mmol/L Low 9-15 [facility] Comment on above: Performed By: #### C MP #### [facility] [address] [place] [address] AST [Catalytic activity/Vol] 16 U/L Normal 0-40 [facility] Comment on above: Result Comment: Spec imen hemolysis has exceeded the interference as defined by Roel. Value may be falsely increased. Suggest recollection if clinically indicated. Performed By: #### C MP #### [facility] [address] [place] [address] Bilirubin [Mass/Vol] 0.5 mg/dL Normal 0.2-0.7 [facility] Comment on above: Performed By: #### C MP #### [facility] [address] [place] [address] Calcium [Mass/Vol] 9.0 mg/dL Normal 8.5-9.9 [facility] Comment on above: Performed By: #### C MP #### [facility] [address] [place] [address] Chloride [Moles/Vol] 104 mmol/L Normal 95-107 [facility] Comment on above: Performed By: #### C MP #### [facility] [address] [place] [address] CO2 [Moles/Vol] 27 mmol/L Normal 20-31 [facility] Comment on above: Performed By: #### C MP #### [facility] [address] [place] [address] Creatinine [Mass/Vol] 0.90 mg/dL Normal 0.70-1.20 [facility] Comment on above: Performed By: #### C MP #### [facility] [address] [place] [address] GFR >60.0 Normal >60 [facility] Comment on above: Result Comment: Rosalio atric calculator link https://www.kidney.org/professionals/kdoqi/gfr_calculatorped Effective Jan 13, [...] secretion. Performed By: #### C MP #### [facility] [address] [place] [address] Globulin (S) [Mass/Vol] 2.7 g/dL Normal 2.3-3.5 [facility] Comment on above: Performed By: #### C MP #### [facility] [address] [place] [address] Glucose [Mass/Vol] 92 mg/dL Normal 70-99 [facility] Comment on above: Performed By: #### C MP #### [facility] [address] [place] [address] Potassium [Moles/Vol] 4.7 mmol/L Normal 3.4-4.9 [facility] Comment on above: Performed By: #### C MP #### [facility] [address] [place] [address] Protein [Mass/Vol] 6.8 g/dL Normal 6.3-8.0 [facility] Comment on above: Performed By: #### C MP #### [facility] [address] [place] [address] Sodium [Moles/Vol] 139 mmol/L Normal 135-144 [facility] Comment on above: Performed By: #### C MP #### [facility] [address] [place] [address] Urea nitrogen [Mass/Vol] 11 mg/dL Normal 6-20 [facility] Comment on above: Performed By: #### C MP #### [facility] [address] [place] [address] Urinalysis, reflex to cultur gee 03-27-2023 Bilirubin Ql (U) Negative Normal Negative [facility] Comment on above: Performed By: #### U AR #### [facility] [address] [place] [address] Clarity (U) Clear Normal Clear [facility] Comment on above: Performed By: #### U AR #### [facility] [address] [place] [address] Color (U) Yellow Normal Straw/Nowata [facility] Comment on above: Performed By: #### U AR #### [facility] [address] [place] [address] Glucose Ql (U) Negative Normal Negative [facility] Comment on above: Performed By: #### U AR #### [facility] [address] [place] [address] Hemoglobin Ql (U) Negative Normal Negative [facility] Comment on above: Performed By: #### U AR #### [facility] [address] [place] [address] Ketones Ql (U) Negative Normal Negative [facility] Comment on above: Performed By: #### U AR #### [facility] [address] [place] [address] Leukocyte esterase Test strip Ql (U) Negative Normal Negative [facility] Comment on above: Performed By: #### U AR #### [facility] [address] [place] [address] Nitrite Ql (U) Negative Normal Negative [facility] Comment on above: Performed By: #### U AR #### [facility] [address] [place] [address] pH (U) 7.0 [pH] Normal 5.0-9.0 [facility] Comment on above: Performed By: #### U AR #### [facility] [address] [place] [address] Protein Ql (U) Negative Normal Negative [facility] Comment on above: Performed By: #### U AR #### [facility] [address] [place] [address] Specific gravity (U) [Rel density] 1.009 Normal 1.005-1.03 [facility] Comment on above: Performed By: #### U AR #### [facility] [address] [place] [address] Urine Reflexed to Culture Not Indicated Normal [facility] Comment on above: Performed By: #### U AR #### [facility] [address] [place] [address] Urobilinogen Qn (U) 0.2 {Lucia'U}/dL Normal < 2.0 [facility] Comment on above: Performed By: #### U AR #### [facility] [address] [place] [address] XR HIP 2-3 VW W PELVIS RIGHT [...] Evan Tijerina MD 03/27/23 Final result Normal [facility] XR HAND LEFT (MIN 3 VIEWS)on [...] Clare King MD 02/02/23 Final result Normal [facility] CBC AUTO DIFFon 07-20-2022 BASO # 0.1 103/ul Normal 0.0-0.1 [facility] Comment on above: Performed By: #### C BC #### [facility] [address] [place] [address] Dr. Tony Roque Basophils/100 WBC (Bld) 1.5 % Normal 0.2-2.0 [facility] Comment on above: Performed By: #### C BC #### [facility] [address] [place] [address] Dr. Tony Roque EO # 0.3 103/ul Normal 0.0-0.7 [facility] Comment on above: Performed By: #### C BC #### [facility] [address] [place] [address] Dr. Tony Roque Eosinophils/100 WBC (Bld) 4.4 % Normal 0.9-7.0 [facility] Comment on above: Performed By: #### C BC #### [facility] [address] [place] [address] Dr. Tony Roque Erythrocyte distribution width (RBC) [Ratio] 13.7 % Normal 11.0-15.0 [facility] Comment on above: Performed By: #### C BC #### [facility] [address] [place] [address] Dr. Tony Roque Hematocrit (Bld) [Volume fraction] 40.0 % Critically low 42.0-54.0 [facility] Comment on above: Performed By: #### C BC #### [facility] [address] [place] [address] Dr. Tony Roque Hemoglobin (Bld) [Mass/Vol] 13.1 g/dL Critically low 14.0-18.0 [facility] Comment on above: Performed By: #### C BC #### [facility] [address] [place] [address] Dr. Tony Roque IG # 0.02 10e3/ul Normal 0.00-0.03 [facility] Comment on above: Performed By: #### C BC #### [facility] [address] [place] [address] Dr. Tony Roque IG % 0.3 % Normal 0.0-0.5 [facility] Comment on above: Performed By: #### C BC #### [facility] [address] [place] [address] Dr. Tony Roque LYMPH # 1.6 103/ul Normal 1.2-3.8 [facility] Comment on above: Performed By: #### C BC #### [facility] [address] [place] [address] Dr. Tony Roque Lymphocytes/100 WBC (Bld) 27.6 % Normal 20.5-60.0 [facility] Comment on above: Performed By: #### C BC #### [facility] [address] [place] [address] Dr. Tony Roque MANUAL DIFF REQ NO Normal [facility] Comment on above: Performed By: #### C BC #### [facility] [address] [place] [address] Dr. Tony Roque MCH (RBC) [Entitic mass] 29.3 pg Normal 25.9-34.0 [facility] Comment on above: Performed By: #### C BC #### [facility] [address] [place] [address] Dr. Tony Roque MCHC (RBC) [Mass/Vol] 32.8 g/dL Normal 29.9-35.2 [facility] Comment on above: Performed By: #### C BC #### [facility] [address] [place] [address] Dr. Tony Roque MCV (RBC) [Entitic vol] 89.5 fL Normal 80.0-94.0 [facility] Comment on above: Performed By: #### C BC #### [facility] [address] [place] [address] Dr. Tony Roque MONO # 0.7 103/ul Normal 0.3-0.8 [facility] Comment on above: Performed By: #### C BC #### [facility] [address] [place] [address] Dr. Tony Roque Monocytes/100 WBC (Bld) 11.1 % Normal 1.7-12.0 [facility] Comment on above: Performed By: #### C BC #### [facility] [address] [address] [address] Tony Roque NEUT # 3.3 103/ul Normal 1.4-6.5 [facility] Comment on above: Performed By: #### C BC #### [facility] [address] [address] [address] Tony Roque Neutrophils/100 WBC (Bld) 55.1 % Normal 43.0-75.0 [facility] Comment on above: Performed By: #### C BC #### [facility] [address] [address] [address] Tony Roque Platelet mean volume (Bld) [Entitic vol] 11.6 fL Normal 9.5-13.5 [facility] Comment on above: Performed By: #### C BC #### [facility] [address] [place] [address] Dr. Tony Roque PLT 197 103/ul Normal 150-450 [facility] Comment on above: Performed By: #### C BC #### [facility] [address] [place] [address] Dr. Tony Roque RBC 4.47 106/ul Critically low 4.70-6.10 [facility] Comment on above: Performed By: #### C BC #### [facility] [address] [place] [address] Dr. Tony Roque WBC 6.0 103/ul Normal 4.0-11.0 [facility] Comment on above: Performed By: #### C BC #### [facility] [address] [place] [address] Dr. Tony Roque PROF CHEM 8 (BAS METB)on Anion gap [Moles/Vol] 10.5 mmol/L Normal [facility] Comment on above: Performed By: #### B MP #### [facility] [address] [place] [address] Dr. Tony Roque Calcium [Mass/Vol] 8.3 mg/dL Critically low 8.5-10.1 [facility] Comment on above: Performed By: #### B MP #### [facility] [address] [address] [address] Tony Roque Chloride [Moles/Vol] 106 mmol/L Normal 98-107 [facility] Comment on above: Performed By: #### B MP #### [facility] [address] [address] [address] Tony Roque CO2 [Moles/Vol] 27.1 mmol/L Normal 21.0-32.0 [facility] Comment on above: Performed By: #### B MP #### [facility] [address] [address] [address] Tony Roque Creatinine [Mass/Vol] 1.05 mg/dL Normal 0.70-1.30 [facility] Comment on above: Performed By: #### B MP #### [facility] [address] [place] [address] Dr. Tony Roque EGFR-AF MONTENEGRIN >60 Normal >=60 [facility] Comment on above: Performed By: #### B MP #### [facility] [address] [address] [address] Tony Roque EGFR-NON AF MONTENEGRIN >60 Normal >=60 [facility] Comment on above: Performed By: #### B MP #### [facility] [address] [place] [address] Dr. Tony Roque Glucose [Mass/Vol] 100 mg/dL Normal 74-106 [facility] Comment on above: Performed By: #### B MP #### [facility] [address] [place] [address] Dr. Tony Roque Potassium [Moles/Vol] 4.6 mmol/L Normal 3.5-5.1 [facility] Comment on above: Performed By: #### B MP #### [facility] [address] [place] [address] Dr. Tony Roque Sodium [Moles/Vol] 139 mmol/L Normal 136-145 [facility] Comment on above: Performed By: #### B MP #### [facility] [address] [address] [address] Tony Roque Urea nitrogen [Mass/Vol] 21.0 mg/dL Critically high 7.0-18.0 [facility] Comment on above: Performed By: #### B MP #### [facility] [address] [place] [address] Dr. Tony Roque Urea nitrogen/Creatinine [Mass ratio] 20.0 mg/mg Normal [facility] Comment on above: Performed By: #### B MP #### [facility] [address] [place] [address] Dr. Tony Roque CBC AUTO DIFFon 07-19-2022 BASO # 0.1 103/ul Normal 0.0-0.1 [facility] Comment on above: Performed By: #### C BC #### [facility] [address] [place] [address] Dr. Tony Roque Basophils/100 WBC (Bld) 1.2 % Normal 0.2-2.0 [facility] Comment on above: Performed By: #### C BC #### [facility] [address] [place] [address] Dr. Tony Roque EO # 0.1 103/ul Normal 0.0-0.7 [facility] Comment on above: Performed By: #### C BC #### [facility] [address] [place] [address] Dr. Tony Roque Eosinophils/100 WBC (Bld) 1.6 % Normal 0.9-7.0 [facility] Comment on above: Performed By: #### C BC #### [facility] [address] [place] [address] Dr. Tony Roque Erythrocyte distribution width (RBC) [Ratio] 13.4 % Normal 11.0-15.0 [facility] Comment on above: Performed By: #### C BC #### [facility] [address] [place] [address] Dr. Tony Roque Hematocrit (Bld) [Volume fraction] 44.8 % Normal 42.0-54.0 [facility] Comment on above: Performed By: #### C BC #### [facility] [address] [address] [address] Tony Roque Hemoglobin (Bld) [Mass/Vol] 15.1 g/dL Normal 14.0-18.0 [facility] Comment on above: Performed By: #### C BC #### [facility] [address] [place] [address] Dr. Tony Roque IG # 0.04 10e3/ul Critically high 0.00-0.03 [facility] Comment on above: Performed By: #### C BC #### [facility] [address] [place] [address] Dr. Tony Roque IG % 0.6 % Critically high 0.0-0.5 [facility] Comment on above: Performed By: #### C BC #### [facility] [address] [place] [address] Dr. Tony Roque LYMPH # 1.1 103/ul Critically low 1.2-3.8 [facility] Comment on above: Performed By: #### C BC #### [facility] [address] [place] [address] Dr. Tony Roque Lymphocytes/100 WBC (Bld) 16.6 % Critically low 20.5-60.0 [facility] Comment on above: Performed By: #### C BC #### [facility] [address] [place] [address] Dr. Tony Roque MANUAL DIFF REQ NO Normal [facility] Comment on above: Performed By: #### C BC #### [facility] [address] [place] [address] Dr. Tony Roque MCH (RBC) [Entitic mass] 29.7 pg Normal 25.9-34.0 [facility] Comment on above: Performed By: #### C BC #### [facility] [address] [place] [address] Dr. Tony Roque MCHC (RBC) [Mass/Vol] 33.7 g/dL Normal 29.9-35.2 [facility] Comment on above: Performed By: #### C BC #### [facility] [address] [place] [address] Dr. Tony Roque MCV (RBC) [Entitic vol] 88.2 fL Normal 80.0-94.0 [facility] Comment on above: Performed By: #### C BC #### [facility] [address] [place] [address] Dr. Tony Roque MONO # 0.6 103/ul Normal 0.3-0.8 [facility] [facility] Comment on above: Performed By: #### C BC #### [facility] [address] [place] [address] Dr. Tony Roque Monocytes/100 WBC (Bld) 9.0 % Normal 1.7-12.0 [facility] Comment on above: Performed By: #### C BC #### [facility] [address] [place] [address] Dr. Tony Roque NEUT # 4.7 103/ul Normal 1.4-6.5 [facility] Comment on above: Performed By: #### C BC #### [facility] [address] [place] [address] Dr. Tony Roque Neutrophils/100 WBC (Bld) 71.0 % Normal 43.0-75.0 [facility] Comment on above: Performed By: #### C BC #### [facility] [address] [place] [address] Dr. Tony Roque Platelet mean volume (Bld) [Entitic vol] 11.2 fL Normal 9.5-13.5 [facility] Comment on above: Performed By: #### C BC #### [facility] [address] [place] [address] Dr. Tony Roque PLT 246 103/ul Normal 150-450 [facility] Comment on above: Performed By: #### C BC #### [facility] [address] [place] [address] Dr. Tony Roque RBC 5.08 106/ul Normal 4.70-6.10 [facility] Comment on above: Performed By: #### C BC #### [facility] [address] [place] [address] Dr. Tony Roque WBC 6.7 103/ul Normal 4.0-11.0 [facility] Comment on above: Performed By: #### C BC #### [facility] [address] [place] [address] Dr. Tony Roque CRPon 07-19-2022 CRP [Mass/Vol] mg/L Normal <=1.0 [facility] Comment on above: Performed By: #### C RP, CMP #### [facility] [address] [place] [address] Dr. Tony Roque CULTURE BLOODon 07-19-2022 Microscopic examination of blood, culture Culture Observations: NO GROWTH AT 5 DAYS. Normal [facility] Comment on above: Performed By: #### L ACT #### [facility] [address] [place] [address] Dr. Tony Roque Microscopic examination of blood, culture Culture Observations: NO GROWTH AT 5 DAYS. Isolate 1 [id number]_NA Normal [facility] Comment on above: Performed By: #### L ACT #### [facility] [address] [place] [address] Dr. Tony Roque Covid-19 PCR (CVDTB)on SARS-CoV-2 (COVID-19) RNA CLARI+probe Ql (Unsp spec) Not detected Normal NOT DETECTED [facility] Comment on above: Result Comment: When diagnostic [...] for this test is supported by the Maintenance Foreman of Health and Human Service's declaration that [...] used). Performed By: #### L ACT #### [facility] [address] [place] [address] Dr. Tony Roque LACTATE/LACTIC ACIDon 2022 Lactate [Moles/Vol] 1.3 mmol/L Normal 0.4-2.0 [facility] Comment on above: Performed By: #### L ACT #### [facility] [address] [place] [address] Dr. Tony Roque PROF 14(COMP METB)on 023 Albumin [Mass/Vol] 3.8 g/dL Normal 3.4-5.[address] [facility] Comment on above: Performed By: #### C RP, CMP #### [facility] [address] [place] [address] Dr. Tony Roque Albumin/Globulin [Mass ratio] 1.0 {ratio} Normal [facility] Comment on above: Performed By: #### C RP, CMP #### [facility] [address] [place] [address] Dr. Tony Roque ALP [Catalytic activity/Vol] 124 U/L Critically high 46-116 [facility] Comment on above: Performed By: #### C RP, CMP #### [facility] [address] [place] [address] Dr. Tony Roque ALT [Catalytic activity/Vol] 13 U/L Critically low 16-63 [facility] Comment on above: Performed By: #### C RP, CMP #### [facility] [address] [place] [address] Dr. Tony Roque Anion gap [Moles/Vol] 11.5 mmol/L Normal [facility] Comment on above: Performed By: #### C RP, CMP #### [facility] [address] [place] [address] Dr. Tony Roque AST [Catalytic activity/Vol] 13 U/L Critically low 15-37 [facility] Comment on above: Performed By: #### C RP, CMP #### [facility] [address] [place] [address] Dr. Tony Roque Bilirubin [Mass/Vol] 0.5 mg/dL Normal 0.2-1.0 [facility] Comment on above: Performed By: #### C RP, CMP #### [facility] [address] [place] [address] Dr. Tony Roque Calcium [Mass/Vol] 9.4 mg/dL Normal 8.5-10.[address] [facility] Comment on above: Performed By: #### C RP, CMP #### [facility] [address] [place] [address] Dr. Tony Roque Chloride [Moles/Vol] 103 mmol/L Normal 98-107 [facility] Comment on above: Performed By: #### C RP, CMP #### [facility] [address] [place] [address] Dr. Tony Roque CO2 [Moles/Vol] 28.2 mmol/L Normal 21.0-32.0 [facility] Comment on above: Performed By: #### C RP, CMP #### [facility] [address] [place] [address] Dr. Tony Roque Creatinine [Mass/Vol] 0.86 mg/dL Normal 0.70-1.30 [facility] Comment on above: Performed By: #### C RP, CMP #### [facility] [address] [place] [address] Dr. Tony Roque EGFR-AF MONTENEGRIN >60 Normal >=60 [facility] Comment on above: Performed By: #### C RP, CMP #### [facility] [address] [place] [address] Dr. Tony Roque EGFR-NON AF MONTENEGRIN >60 Normal >=60 [facility] Comment on above: Performed By: #### C RP, CMP #### [facility] [address] [place] [address] Dr. Tony Roque Globulin (S) [Mass/Vol] 3.8 g/dL Normal [facility] Comment on above: Performed By: #### C RP, CMP #### [facility] [address] [place] [address] Dr. Tony Roque Glucose [Mass/Vol] 114 mg/dL Critically high 74-106 T [facility] Comment on above: Performed By: #### C RP, CMP #### [facility] [address] [place] [address] Dr. Tony Roque Potassium [Moles/Vol] 3.7 mmol/L Normal 3.5-5.1 [facility] Comment on above: Performed By: #### C RP, CMP #### [facility] [address] [place] [address] Dr. Tony Roque Protein [Mass/Vol] 7.6 g/dL Normal 6.4-8.[address] [facility] Comment on above: Performed By: #### C RP, CMP #### [facility] [address] [place] [address] Dr. Tony Roque Sodium [Moles/Vol] 139 mmol/L Normal 136-[address] [facility] Comment on above: Performed By: #### C RP, CMP #### [facility] [address] [place] [address] Dr. Tnoy Roque Urea nitrogen [Mass/Vol] 10.0 mg/dL Normal 7.0-18.0 [facility] Comment on above: Performed By: #### C RP, CMP #### [facility] [address] [place] [address] Dr. Tony Roque Urea nitrogen/Creatinine [Mass ratio] 11.6 mg/mg Normal [facility] Comment on above: Performed By: #### C RP, CMP #### [facility] [address] [place] [address] Dr. Tony Roque TROPONIN, HIGH SENSITIVITYon 07-19-2022 HSTROP 4.1 pg/mL Normal 4.0-76.1 [facility] Comment on above: Result Comment: CUT- OFF POINTS HAVE BEEN ESTABLISHED BASED ON THE FOURTH UNIVERSAL DEFINITIONS OF MYOCARDIAL INFARCTION. THE UPPER REFERENCE LIMIT (URL) OF TROPONIN, DEFINED THE 99TH PERCENTILE OF cTnI DISTRIBUTION IN A REFERENCE POPULATION, HAS BEEN CONFIRMED THE DECISION THRESHOLD FOR PA DIAGNOSIS. Performed By: #### H STROPN #### [facility] [address] [place] [address] Dr. Tony Roque XR FOOT LT 2Von [...] by: KARLA MANZANO Date: 2022-06-20 07:[address] [facility] XR FOOT LT MIN 3 VIEWSon XR [...] by: KARLA MANZANO Date: 2022-06-20 07:[address] [facility] POINT OF CARE GLUCOSEon Glucose [Mass/Vol] 95 mg/dL Normal 74-[address] [facility] Comment on above: Performed By: #### P OCGLUC #### [facility] [address] [place] [address] Dr. Tony Roque Glucose [Mass/Vol] 123 mg/dL Critically high 74-106 [facility] Comment on above: Performed By: #### P OCGLUC #### [facility] [address] [address] [address] Tony Roque PROF CHEM 8 (BAS METB)on Anion gap [Moles/Vol] 9.0 mmol/L [facility] Comment on above: Performed By: #### B MP #### [facility] [address] [place] [address] Dr. Tony Roque Calcium [Mass/Vol] 8.9 mg/dL Normal 8.5-10.[address] [facility] Comment on above: Performed By: #### B MP #### [facility] [address] [address] [address] Tony Roque Chloride [Moles/Vol] 107 mmol/L Normal 98-107 [facility] Comment on above: Performed By: #### B MP #### [facility] [address] [address] [address] Tony Roque CO2 [Moles/Vol] 31.8 mmol/L Normal 21.0-32.0 [facility] Comment on above: Performed By: #### B MP #### [facility] [address] [address] [address] Tony Roque Creatinine [Mass/Vol] 0.77 mg/dL Normal 0.70-1.30 [facility] Comment on above: Performed By: #### B MP #### [facility] [address] [place] [address] Dr. Tony Roque EGFR-AF MONTENEGRIN >60 Normal >=60 [facility] Comment on above: Performed By: #### B MP #### [facility] [address] [address] [address] Tony Roque EGFR-NON AF MONTENEGRIN >60 Normal >=60 [facility] Comment on above: Performed By: #### B MP #### [facility] [address] [place] [address] Dr. Tony Roque Glucose [Mass/Vol] 83 mg/dL Normal 74-106 [facility] Comment on above: Performed By: #### B MP #### [facility] [address] [place] [address] Dr. Tony Roque Potassium [Moles/Vol] 3.8 mmol/L Normal 3.5-5.1 [facility] Comment on above: Performed By: #### B MP #### [facility] [address] [address] [address] Tony Roque Sodium [Moles/Vol] 144 mmol/L Normal 136-145 [facility] Comment on above: Performed By: #### B MP #### [facility] [address] [address] [address] Tony Roque Urea nitrogen [Mass/Vol] 10.0 mg/dL Normal 7.0-18.0 [facility] Comment on above: Performed By: #### B MP #### [facility] [address] [address] [address] Tony Roque Urea nitrogen/Creatinine [Mass ratio] 13.0 mg/mg Normal [facility] Comment on above: Performed By: #### B MP #### [facility] [address] [address] [address] ANKLE LT WO [...] by: SAURAV KERNS Date: 2021-11-14 18:[address] [facility] Consenton 11-04-2021 Consent [id number]#1. 00CD:127 Normal [facility] Registrationon 11-04-2021 Registration [id number]#1. 00CD:127 Normal [facility] Creatinine and Glomerular fi ltration rate.predicted panel (S/P/Bld)Ordered By: Scott Rodriguez on 09-19-2021 Creatinine [Mass/Vol] 1.37 mg/dL 0.64-1.27 [facility] Estimated glomerular filtrat ion rate (GFR) non- AmericanOrdered By: Scott Rodriguez on 09-19-2021 GFR/1.73 sq M.predicted among non-blacks MDRD (S/P/Bld) [Vol rate/Area] 54 mL/Min [facility] No Panel InformationOrdered By: Scott Rodriguez on 09-19-2021 Estimated GFR () > 60 mL/Min [facility] Comment on above: GFR estimated refere nce range: According to KDOQI guidelines, <60 ml/min/1.73m2 is sufficient to diagnose a patient with chronic kidney disease. Pharmacy Creatinine Clearance (Chem 62.91 [facility] CT ANKLE LT WO CONon 022 [...] stable in appearance. 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 [...] by: SHIRLEY CASTILLO Date: 2021-09-18 16:[address] [facility] Basic Metabolic Panelon 05-0 Calcium [Mass/Vol] 9.3227758 mg/dL Normal 8.2-10 .2 mg/dL [facility] [employer] Other Chloride [Moles/Vol] 105 mmol/L Normal 95-114 mmol/L [facility] [employer] Other CO2 [Moles/Vol] 24.44558719 mmol/L Normal 22.0-3 0.0 mmol/L [facility] [employer] Other Creatinine [Mass/Vol] 1.00292030 mg/dL Normal 0. 64-1.27 mg/dL [facility] [employer] Other Glucose [Mass/Vol] 77 mg/dL Normal 70-100 mg/dL [facility] [employer] Other Potassium [Moles/Vol] 4.95721127 mmol/L Normal 3 .5-5.1 mmol/L [facility] [employer] Other Sodium [Moles/Vol] 137 mmol/L Normal 136-146 mmol/L [facility] [employer] Other Urea nitrogen [Mass/Vol] 17 mg/dL Normal 9-23 mg/dL [facility] [employer] Other Basic Metabolic Panel > 60 [facility] [employer] Other C-Reactive Proteinon 022 C-Reactive Protein 0.7 mg/dL Normal 0.0-1.0 mg/dL [facility] [employer] Other Complete Blood Count Auto Di ffon 08-16-2021 Basophils (Bld) [#/Vol] 0.376049432 10*3/uL Normal 0.0-0.2 10*3/uL [facility] [employer] Other Basophils/100 WBC (Bld) 1.800 % . % [employer] Other Eosinophils (Bld) [#/Vol] 0.444104417 10*3/uL Normal 0.0-0.45 10*3/uL [employer] Other Eosinophils/100 WBC (Bld) 2.600 % . % [employer] Other Erythrocyte distribution width (RBC) [Ratio] 14.800 % Normal 12.0-14.8 % [employer] Other Hematocrit (Bld) [Volume fraction] 36.200 % Low 38.8-50.0 % [employer] Other Hemoglobin (Bld) [Mass/Vol] 12.152839 g/dL Low 13.0-17.0 g/dL [employer] Other Lymphocytes (Bld) [#/Vol] 1.784752679 10*3/uL Normal 1.00-4.8 10*3/uL [employer] Other Lymphocytes/100 WBC (Bld) 23.800 % . % [employer] Other MCH (RBC) [Entitic mass] 29.3000 pg Normal 27.5-35.2 pg [employer] Other MCV (RBC) [Entitic vol] 86.8000 fL Normal 83.5-101 fL [employer] Other Monocytes (Bld) [#/Vol] 0.698223352 10*3/uL Normal 0.0-0.8 10*3/uL [employer] Other Monocytes/100 WBC (Bld) 7.900 % . % [employer] Other Neutrophils (Bld) [#/Vol] 4.614691231 10*3/uL Normal 1.8-7.7 10*3/uL [employer] Other Neutrophils/100 WBC (Bld) 63.900 % . % [employer] Other Platelet mean volume (Bld) [Entitic vol] 9.4000 fL Normal 6.6-10.1 fL [employer] Other Platelets (Bld) [#/Vol] 222 10*3/uL Normal 150-450 10*3/uL [employer] Other RBC (Bld) [#/Vol] 4.1749815066 10*6/uL Normal 3. 90-5.60 10*6/uL [employer] Other WBC (Bld) [#/Vol] 6.440579330 10*3/uL Normal 4.1 -10.5 10*3/uL [employer] Other Complete Blood Count Auto Diff 6.2 10*3/uL Normal 4.5-11.0 10*3/uL [employer] Other Complete Blood Count Auto Diff 33.7 g/dL Normal 32.5-35.6 g/dL [employer] Other Complete Blood Count Auto Diff 0.0 % Normal 0-0.5 % [employer] Other ED Note-Physicianon 06-23-19 ED Note-Physician Basic [...] ankle fracture and underwent surgical repair in [place]. He said following that repair he had to have another surgery for an ankle fusion which was done at [facility] by Dr. Hart. Patient tells me he [...] weakness and erythema. Patient has been taking [place] and tramadol and naproxen for the pain without relief. He denies any new trauma or injury. 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 Normal [facility] Comment on above: Result Comment: Elec tronically Signed By: Na Torres PA-C\.br\Date and Time Signed: 06/16/21 19:16 EST\.br\Electronically Co-Signed By: Ryan Veronica DO\.br\Date and Time Co-Signed: 06/22/21 12:55 EST Coding Summary.on 06-20-2021 Coding Summary. CD:[id number] G h0bWw+PGhlYWQ+UN9XSHO kB34ewYBcfC2ES5fFHZ0L NMWPXWEKOW1KLJ3vfRZ3V LzgS7QjvmUu UotosXOnSN75LYa6QGO3z ZdlWFsmpS9muOQhB9i8Ap WuFP40kZ55ZYxzUDLaItP 3LjZpbjsgbWFy C6gwMpIqhHPoDyu+PHRhY mxlIHdpZHRoPScxMDAlJy FxiGakXW5tOv9mSHGrIVE vbGxhcHNlOiBj u0nfKEZnLEapMG7cdXroE 5EqpFN5YOGqx4f0Ck22kT I+KPQzDHS4iFvkROdob81 1LdCfd5hgTOM1 qOZdKRbdXDS6Y63er2S3E JMuRHIuBHY0cUA4sY5amZ xlmuavG3TerQSvLcL3DKS 5bQJaqJ5vfPae lufpjD4bSkl+P58JSK9OG KZNAX0WYwo0L5YcMzfakY I+UR62KDZkTH15eOGgpQV kf1chuKu4AfOa NCUtUMI1jLwwQYztz4KcP RTeK05rqWUpe5W0ASZrgB hmmVKeSaMfsCX2pH0fAHr ihjyhz9rezpsu Zudbr0isnn48mC28Y53sA AvfQDEbILR1DDFdJGEzoS spev7zgV9qMa1+NIeei7k qz9lqbTz2YdWo JOVkfrRvhKweBUX8z2YfS l02B0JkvUqut1WbOth8pk 62uCUjv0L0qAN4INtjLWQ ahW8dEQvlWzZ7 DIFrCkBvmR18lBYlHVdvJ c0zeMgzbIhqEJ5xXJMevd pdKBUpkI1rECTqaYCtmJq oYP2yVTXdrgcp x197LxSfAFF3QVEhvIElO 7KtgX5oEiSoAUYsEQErB3 PlsYQjLQjoU553YQreFkB 4RAXsbpWkV5Kk XJEcrTqyQrP3t8V1Fl5Nn 7IoabatMMG0HLhdXUCxFt AaGoJuZdB7I6WnPnv5WGA inOsaPN6zS8Lh PMCqxvbcqyfsmOB8ASNsR IWtiR35sGZoPUyrMh2bq7 D3s573YMXyYNHmoX25Fo0 udDogMTBwdCBU bX7iwovez5yfdljnFwBcT YWrBMp4QWy8JUInrQcdDg DvWPA6KnY5TFO7bRPjdY5 goDjosqijwP8d Oyc+U17slA4bYSZ6JCD2p ltfNCHdpfUpVF96WN85F8 RyPjwvdGFibGU+PGRpdiB koQhdZQ5zErIe l1mhk7XiHCpbY9UoREYhN FasQix4IXJvOYS0iPJ9gV 6fOTUxECwkz4L9wFT0L8C jpoAfdu2qj8tq HUFpBHfyA22tlALrg8Z1N DModXG3UPYayOvxByHecB 93Oyc+NSEphTyuu3DgDod ug6ulg6ykkPo6 OcEdCNIavoLupAojGUU8g 8WxNt16K75kKBfpEXNkCD VhAPVrHLSxpCrxff9nfQ5 wIi8+PGNvbCB3 nGZ5cG9pOOXnThZ0WLbxM 007XjIytGInZmkhu3bjj1 xhhMa2YuKyOGVbtsPhoAh gMOM2v4EbFm61 J68wOQlyTMSnNZQzOQQrI OIvcNbywm8rzM3pTp9+PC 0qe3gqrd74mH87yDL+PHR vUZH7vMkjXGax BJCblX1nHBtjJxI5BHBdM pHiiE22lPCdWNdnGf8fuK lyfHyhOW9zSHAvkldsa70 4DvAyx3knVDEc xUQkXOcuINU0D51kt8F2M SQaYNByXJJ8nCS7tW2ddH lnbjogbGVmdDsgdmVydGl qMLasYVpbX062 IHRvcDsnPlBhdGllbnQgT wJwZCm7B1FfFrf4OZHohR drAT8kxIGzUEagOf0voTj rdGwaPJ9jLYUk cfsuh208KoEoy2zbJBQxe FXrMBrdLAY7O26ff8F8UG McWYGtFSH5jWB3lI1gaVv nbjogbGVmdDsg dhKeaIltBAgwGWpaT280Z HRvcDsnPkJpcnRoIERhdG F0FM88OU36cHEns1R5pDD 4B2BdLDEwggdj dddsnAL1LFUsITCjeA81D v6crLxcIt5fMNZqMWB1TX LfsLIlF9NzcO5uYsTwPUV yHWWxF8MdyGIs RIhkO340LEnkIkK9ZENgn oAqY9EbMQOwdWewLcT5w3 U1Qm2QA9D5XI40YA28gOT ab9N2zFS2V1Br GXPvjhbbexpwlGY7EJSgJ LLofZ67Bz2cxOitVk6vOH YkJCQ2JATzqQIrY7GnpU3 yOiAjMDAwMDAw U9OjgAPzUMtzO635YUndP oI8IAKesmXsX5JbZNAhvI fwMmJ5t8A5Bl2FJYg7JA8 3SR92qEBuu5U2 eBZ6Q3JnRFAothtbvrdne YZ2GMAiPGWecH63Fj2obM ubQq9xEIKbSIU2BAFwuEM aR5LeqI5eEqKw YZHzZHMqA7JuxYKhNCawR 552NDkpPgY9LFGlzrSnO2 AmZOGciAohInD1x6T4Yi3 UIVUuIX75ZQV8 wXP7FS16AL66X0UjRmljn GFibGU+PHRhYmxlIHdpZH RoPScxMDAlJyBzdHlsZT0 jOs8kWTVdCJKk dXsxyEBjQxRdb5ciUZUlP VpjTY8phXooZ4GucDK2RJ Qzp0g6Cs23B73vS8PbtEW +PXUzlJY3gML8 jR5nRjMdKbD8XAzfJ276O fHqvFLsBykgg3fsr5hghZ x6QyV5LXZwssXhpNhyKNV 6f8FoOp02B50j IHdpZHRoPSIxNSUiIHZhb Cmcxq8zzQ2eDf7+PGNvbC I0fWA5nC4wCdPcChT9TSh tJ300RcBwgGLw Fsoca1qiz8enpAu5FoPtH NRhygCdgOrjDPW5r3IbDs 93W0XsmJfhi7YgEwg6tz8 3iBBkb0Y6kNH1 Q8HtFNDfikwwgULhjJkdU H3vTHVfspvqNWYeqA6wGW NcM2f3DyEyAoK6ZKebI1F tuiN5JBCzeEUu XLsvHLM2R53jf2W8TXXvQ INlAYF9lKC0iN4vkFelcm ogbGVmdDsgdmVydGljYWw pSXnsK747COQy gAjfVVLmdD6jNELeuOJrh XovHY9iJNTbxyytXwABKY JDY1BiKATETSVaEXsgxAO +OVTlVAC6mQep TDzkSAXulG4jYHCaY1u9C yOwRoT9GXqpC7PoZATtdh pfAp12xU6kSsZfNlH1VZg bK5YzfqR6MZHd aKQsSTycWFI1U41qp1I5K XZiGOFrUDD8jDM4xV8swD lnbjogbGVmdDsgdmVydGl lXAdsDQytG913 HWFaxHkoJjI5HzZ4ZgA1Z bT5T1SgVzv0AJBnzYnyCH 7fvMKxKXliVw4vxYroiIt wZD2vVDXxsykf BLFskE7yRBDjcXLjxZvcB J2eTXMxzcrjb093XuBcDN V0MEFawDQiC9CvmF2gSaC kVTRoTWItM4Ip iTCkREmsJ763CHzrSvN3P RFwxwFjX0QaOQFsgBqpHo T1t6Z8Qe05RVYAPAZyhdn vdGQ+PHRkIHN0 mDtlDRidKQRrcQ3rBIBbC 3d1XvYbWdV0JHjxA1GjUF IcojroYn48xL4xVyFkKsH 5VSstL5OykiE9 GAKfpTYvYTfnKRX0A20nj 7Q1QQBgONCmJYR0xOZ9qK 1hbGlnbjogbGVmdDsgdmV ydGljYWwtYWxp R825GBWaiUbiHf5mdRT3I 9ExZxb7GVOhuXdtIS1meO NkDIgfLu7xnVyfsMzvAL4 wNTBpbjtwYWRk uM3oIYBplPRopAvkDP4mN JQarqguc128IvZaZOX6JX OfaFRyU7XogP5lHnNeBVC kAOMtY0PexBHh IOncF449UEerBuX2QSKqz cVuS2HhBHNxxAmfVhX3i5 M6Or0QvRLnL3VcV2n7M7F kPjwvdHI+PC90 BPDaWG96sEAkzYSpo1usd Uj0UjUjEOPnDQY4qXplIQ cys5ItDEMaC61qlWCoo5I 6IGNvbGxhcHNl UyUciLS0eJ0lTSoivpwpa 7bfcjlaLpvrg0ybfs45iQ 78A69wQJskHFElBXNsBFR gMQVdtWqsjl5y zC3mLf7+BQTkbTQ2yRL6w Y1yRfRfBzJ5UCngZ647Rd PzpEUlPzfmp7zwe5tunLs 9IjIwJSIgdmFs fKadXCW9y0GjRy67H76pH HdpZHRoPSIyMCUiIHZhbG xapu5bzJ3xHu0+UT2iq0z bdt26gW47nHQ+ BSQfQXE3hAsaVHmaYTHxb O6fYKctNqZ4OOYzXmZvnB 42dKRwMTfdJs6tiFkdvWn qTV4fYCGnvnag m162RbNco7aiICHzwWXvZ GrpFLU3B39sr2X5SILkKO TfLTG5oMA7pC8akPgdwoq gbGVmdDsgdmVy qUpeBMonIFsnG862IGVyk VruEgPjvECgE5acgoAFBL 1lOjwvdGQ+KRZkFPN6wGp kZHtgBDWnvE4j DDZcY9l3WrOjUyD6LUkrQ 3XchbG4UWQnvGNhTOCsgE AUgM1jaoinn4ziwehdEpK mJDGkVBm8HRy3 SOZbhZmnNbNoXFU1NsO9R CF9sQZmrO1nxSoxyzewaD 9wOyc+RklOOjwvdGQ+PHR kQXC1oSsjDSau UVJpiH0kDIDvG3d0WtDpJ mM9MIbsE3SoonX6GNLkzD VzRUQgzTFNfH6zgyhrl9t vcjogIzAwMDAw HUj0JTa9GSPxxXtyOkQoI CW5HbX5DPC3aAHyqV1asU elgnnhsW6nBtw+TVJOOjw vdGQ+PHRkIHN0 oTbqMFtgNIAtuP9zYEUmF 0r5KcUzGrZ1DDstV2Gwkd H0BBWyvBZyUPGnxVMWqZ8 tqvcop2gbenxz GlZlDIUyPNa8PAl1ZXXwt RpvIgXgMQM1KwG5III6cZ BkoX1zbLvaykvxpW8sDlm +NXQ1FYL8GM40 AY44C4MiGqzlhNKsuQW+P HRhYmxlIHdpZHRoPScxMD IzImEmvQjwBJ9oKh4uFKK yLWNvbGxhcHNl OiBj (more content not included)... Normal [facility] ED Noteon 06-19-2021 ED Note Culture results sent to [facility]. Normal [facility] ED Noteon 06-17-2021 ED Note Chandnicamille Wylie from [facility] - Surgical dept. called to see if we performed a covid test while the patient was here on Thursday06/15/2021. She verified the information and I advised her we did not. That's all they needed. Normal [facility] CT Lower Extremity w/ Contra st [...] amount in ml's: 100 Normal [facility] ED Clinical Summaryon 2021 ED Clinical Summary [address] [address] ED Clinical Summary Person Information Name: SANDRA BOSS [place] Age: 55 Years : 1965 Sex: Male Language: Filipino PCP: CLARE BRANDT DO Marital Status: Visit [...] 02:23:28 06/16/2021 02:23:28 ADDRESS: [id number] [place] [id number] PHYS DOC NOTES: MEDICAL INFORMATION: Prescriptions Given: Medications to Continue with No Changes Other Medications acetaminophen-hydroco done ([place] 325 mg-5 mg oral tablet) 1 Tablets [...] DIAGNOSIS: 1:Osteomyelitis of ankle Normal [facility] ED Noteon 06-16-2021 ED Note 2046-Called podiatry group at [facility] with which patient follows with Dr. Delaney. Attending Dr. Veronica spoke with on-call ring striker Dr. Fair. 2101-Called [facility] and spoke with Lisandra, hospital tank shop supervisor. Faxed facesheet.Dr. Goldstein is attending hospitalist. 2107-Lisandra returned call and stated Dr. Goldstein accepts. Patient going to 213. 2128-called [facility] for ETA. ETA 0230. As patient has no insurance [facility] to call back with pricing. Stated patient had to pay upfront or either hospital needed to take financial responsibility. saw runner Mercedez spoke with ER tank shop supervisor Yolis who stated [facility] would accept cost. [facility] paperwork faxed. Awaiting return call for cost. Report given to [facility] clerical secretary Marielos. Report #-[phone] ext [phone] Normal [facility] ED Patient Education Noteon 06-16-2021 ED Patient Education Note Normal [facility] ED Patient Summaryon 022 ED Patient Summary [place] [id number] Patient Discharge Instructions Person Information Name: SANDRA BOSS Age: 55 Years Arrival Date: 06/15/2021 14:24:40 Discharge Diagnosis: 1:Osteomyelitis of ankle Primary Care Physician: CLARE BRANDT DO Provider Information Primary Provider: Ryan Veronica DO Advanced Outsole Leveler:Na Torres PA-C The exam and treatment you received in the Emergency Department were for an urgent problem and are not intended as complete care. It is important that you follow up with a doctor, nurse practitioner, or physician?s assistant professor of surgery for ongoing care. If your symptoms become [...] opioids can be used to help relieve mpbswckt-aj-rbbgwd pain and are often prescribed following a [...] be struggling with addiction, tell your health home care attendant and ask for guidance or call SAMHSA?S National Helpline at 6-249-289-JHKO. v Source: [place] Department of Health and Human Services/Center for Disease Control & Prevention [facility] Medications Given: Medication Dos (more content not included)... Normal [facility] Progress Note-Nurseon 2021 Progress Note-Nurse Pt. resting with eye s closed, and unlabored respirations. Orphenadrine not given at this time, Dr. James aware. Normal [facility] Progress Note-Nurse Called report to [facility] spoke with Mildred CINTRON for room 213 Patient updated on poc and call light in reach Normal [facility] Transfer Documentson 022 Transfer Documents [id number]# 1.00CD:127 Normal [facility] US LE Venous Duplex Lefton 0 06-16-2021 US LE Venous Duplex Left Exam Date/Time: 06/15/2021 [...] by: LUKASZ Technologist: YESSY Normal [facility] Auto Diffon 06-15-2021 Basophils/100 WBC (Bld) 0.4 % Normal 0.0-2.0 [facility] Comment on above: Order Comment: Order Added by Discern Expert. Performed By: #### 2 509359, 12347371, 0617087, 9139759, 32176362, 4954798, 5644425 ####[facility] [address] [place] [address] Basophils/Leukocytes Auto (Bld) [Pure # fraction] 0.1 E9/L Normal 0.0-0.2 [facility] Comment on above: Order Comment: Order Added by Discern Expert. Performed By: #### 2 521307, 42877442, 3733573, 4780990, 96162324, 8694180, 8287486 ####[facility] [address] [place] [address] Eosinophils/100 WBC (Bld) 0.1 % Normal 0.0-8.0 [facility] Comment on above: Order Comment: Order Added by Discern Expert. Performed By: #### 2 053864, 78689379, 7465514, 8181092, 68647828, 8929470, 4229304 ####[address] [place] [address] Eosinophils/Leukocyte s Auto (Bld) [Pure # fraction] 0.0 E9/L Normal 0.0-0.5 [facility] Comment on above: Order Comment: Order Added by Discern Expert. Performed By: #### 2 067485, 60680870, 5177606, 7986859, 27520284, 0751802, 1817876 ####[address] [address] Lymphocytes/100 WBC (Bld) 4.1 % Low 14.0-50.0 [facility] Comment on above: Order Comment: Order Added by Discern Expert. Performed By: #### 2 632399, 00150222, 1994763, 0785126, 56790491, 6619756, 1533353 ####[address] [place] [address] Lymphocytes/Leukocyte s Auto (Bld) [Pure # fraction] 0.5 E9/L Low 1.0-4.0 [facility] Comment on above: Order Comment: Order Added by Discern Expert. Performed By: #### 2 412559, 28766016, 3014694, 0846049, 68637652, 6698665, 5049097 ####[address] [place] [address] Monocytes/100 WBC (Bld) 6.1 % Normal 4.0-14.0 [facility] Comment on above: Order Comment: Order Added by Discern Expert. Performed By: #### 2 899935, 36415659, 7914644, 9614033, 11087861, 2417017, 3658150 ####[facility] [address] [place] [address] Monocytes/Leukocytes Auto (Bld) [Pure # fraction] 0.8 E9/L Normal 0.2-1.0 [facility] Comment on above: Order Comment: Order Added by Discern Expert. Performed By: #### 2 584684, 21954634, 4791940, 9312237, 30273341, 2664837, 5217410 ####[address] [place] [address] Neutrophils/100 WBC (Bld) 89.3 % High 36.0-75.0 [facility] Comment on above: Order Comment: Order Added by Discern Expert. Performed By: #### 2 655316, 59056073, 5318752, 7449837, 33648498, 0397515, 6147551 ####[facility] [address] [place] [address] Neutrophils/Leukocyte s Auto (Bld) [Pure # fraction] 12.1 E9/L High 2.0-7.5 [facility] Comment on above: Order Comment: Order Added by Discern Expert. Performed By: #### 2 384308, 06931167, 9189401, 5709132, 89197240, 5664856, 3471573 ####[facility] [address] [place] [address] BMPon 06-15-2021 Creatinine [Mass/Vol] 1.3 mg/dL Normal 0.5-1.3 [facility] Comment on above: Performed By: #### 2 129860, 58099098, 8342176, 2765379, 95158084, 4687211, 4179505 ####[facility] [address] [place] [address] Urea nitrogen [Mass/Vol] 18 mg/dL Normal 5-21 [facility] Comment on above: Performed By: #### 2 039039, 98072014, 7019544, 9930608, 67883549, 6559469, 7527279 ####[facility] [address] [place] [address] Urea nitrogen/Creatinine [Mass ratio] 14 No Units Normal 10-20 [facility] Comment on above: Performed By: #### 2 100144, 93864656, 0519812, 3875596, 19238806, 8058786, 6526718 ####[facility] [address] [place] [address] Anion gap [Moles/Vol] 12 mmol/L Normal 6-16 [facility] Comment on above: Performed By: #### 2 518187, 56797216, 6685649, 8738930, 80709510, 4427791, 2326832 ####[facility] [address] [place] [address] Calcium [Mass/Vol] 8.6 mg/dL Low 8.9-11.1 [facility] Comment on above: Performed By: #### 2 813198, 78344930, 0712561, 3411811, 10133015, 5537131, 7006966 ####[facility] [address] [place] [address] Chloride [Moles/Vol] 102 mmol/L Normal 101-111 [facility] Comment on above: Performed By: #### 2 036664, 48035675, 5700093, 0002530, 02094260, 5591833, 5866628 ####[facility] [address] [place] [address] CO2 [Moles/Vol] 24 mmol/L Normal 21-31 [facility] Comment on above: Performed By: #### 2 354486, 66248061, 5100100, 0556587, 44507076, 4035682, 8774369 ####[facility] [address] [place] [address] Glucose [Mass/Vol] 145 mg/dL Normal 55-199 [facility] Comment on above: Result Comment: If t his glucose result represents a fasting glucose, interpretation should refer to the following reference range: 55-99 mg/dL Performed By: #### 2 423346, 71983700, 4315279, 1288491, 11831374, 5438527, 0287993 ####[facility] [address] [place] [address] Potassium [Moles/Vol] 3.8 mmol/L Normal 3.5-5.3 [facility] Comment on above: Performed By: #### 2 624290, 84086053, 3697081, 8021880, 21648422, 2407735, 9635879 ####[facility] [address] [place] [address] Sodium [Moles/Vol] 134 mmol/L Low 135-145 [facility] Comment on above: Performed By: #### 2 223297, 88728628, 7944271, 7330797, 16990245, 0396140, 6408251 ####[facility] [address] [place] [address] CBC w/ Auto Diffon Erythrocyte distribution width (RBC) [Ratio] 13.6 % Normal 10.9-14.2 [facility] Comment on above: Performed By: #### 2 310965, 41745024, 0246231, 4280922, 53655402, 1848034, 7888413 ####[facility] [address] [place] [address] Hematocrit (Bld) [Volume fraction] 37.7 % Normal 37.7-49.0 [facility] Comment on above: Performed By: #### 2 617570, 89160209, 6194772, 9994032, 69733735, 1298182, 5132176 ####[facility] [address] [place] [address] Hemoglobin (Bld) [Mass/Vol] 12.6 g/dL Low 13.5-17.5 [facility] Comment on above: Performed By: #### 2 735937, 56564504, 2220615, 1017905, 43417280, 6851204, 1181609 ####[address] [place] [address] MCH (RBC) [Entitic mass] 29.0 pg Normal 27.0-34.0 [facility] Comment on above: Performed By: #### 2 489822, 92032163, 7998205, 5490028, 41126797, 6234699, 1975854 ####[address] [address] MCHC (RBC) [Mass/Vol] 33.5 g/dL Normal 31.4-36.0 [facility] Comment on above: Performed By: #### 2 362505, 10424747, 1557906, 4410577, 11594651, 5798499, 1998241 ####[address] [address] MCV (RBC) [Entitic vol] 86.6 fL Normal 80.0-100.0 [facility] Comment on above: Performed By: #### 2 429933, 46401568, 4046395, 6621163, 54377696, 1274039, 2572965 ####[address] [address] Platelet mean volume (Bld) [Entitic vol] 9.5 fL Normal 6.4-10.8 [facility] Comment on above: Performed By: #### 2 107109, 26897918, 0718213, 6512389, 67906897, 3037635, 9301694 ####[address] [address] Platelets (Bld) [#/Vol] 189.0 E9/L Normal 150.0-500.0 [facility] Comment on above: Performed By: #### 2 975616, 33377934, 7711450, 3463112, 73099837, 9160468, 7683394 ####[address] [place] [address] RBC (Bld) [#/Vol] 4.4 E12/L Normal 4.3-5.9 [facility] Comment on above: Performed By: #### 2 477240, 66186101, 8601109, 2800951, 96837103, 0989013, 3014720 ####[facility] [address] [place] [address] WBC corrected for nucl RBC Auto (Bld) [#/Vol] 13.5 E9/L High 4.0-11.0 [facility] Comment on above: Result Comment: Slid e reviewed by ts. Performed By: #### 2 653230, 61988285, 6634893, 9181520, 95606001, 6128658, 0765698 ####[facility] [address] [place] [address] CRPon 06-15-2021 CRP [Mass/Vol] 31.1 mg/dL High <=1.9 [facility] Comment on above: Performed By: #### 2 277132, 46370697, 0208858, 9367365, 24662633, 6465930, 0926513 ####[address] [place] [address] Consent for Treatmenton Consent for Treatment [id number] .00CD:127 Normal [facility] D-Dimeron 06-15-2021 Fibrin D-dimer FEU (PPP) [Mass/Vol] 2227 [id number] Abnormal 215-500 [facility] Comment on above: Result Comment: Resu lts Called To Jane Alexander/REID By DIEUDONNE And Read Back For Confirmation [...] infections Liver cirrhosis Performed By: #### 2 899589, 68879862, 6145044, 5182603, 75991997, 5296644, 8603529 ####[facility] [address] [place] [address] ED Note-Physicianon 06-16-19 ED Note-Physician This 55-year-old white male presented to the emergency room with a complaint of pain in his left foot and ankle as well as lower leg. The patient states that the pain began 4 days ago. Patient suffered a severe fracture of the left ankle in March. It is my understanding that he initially was operated at [place], that that surgical intervention failed and he underwent subsequent operative intervention by Dr. Hart at [facility] sometime after that. The patient indicates that [...] if the patient could be transferred to [facility] under the hospitalist. He indicates that the hospitalist is Dr. Kenytata Goldstein. The cracking unit operator, fazal spoke with the house manager at [facility] who spoke with the hospitalist who gave [...] diagnosis: #1 osteomyelitis left tibia/ankle I provided jopw-qa-qvpj evaluation of this patient. I have seen and evaluated the patient and I agree with the physician assistants history, physical examination, diagnostic evaluation, treatment and disposition of this patient. Please note I performed the medical decision making entirely on this patient. I performed the transfer of this patient as well. Normal [facility] Comment on above: Result Comment: Elec tronically Signed By: Ryan Veronica DO.br\Date and Time Signed: 06/15/21 21:33 EST Sed Rate Automatedon 022 Sed Rate Automated 32 mm/hr High 0-19 [facility] Comment on above: Performed By: #### 2 167914, 85854088, 2308725, 1804368, 61776301, 4578652, 5690630 ####[facility] [address] [place] [address] eGFRon 06-15-2021 GFR/1.73 sq M.predicted among blacks MDRD (S/P/Bld) [Vol rate/Area] mL/min/{1.73_m2} Normal >=59 [facility] Comment on above: Order Comment: Order added by Discern Expert. Result Comment: eGFR is race adjusted. AA=. Performed By: #### 2 485559, 67463060, 5412760, 3112167, 76727556, 3616649, 1047753 ####[facility] [address] [place] [address] GFR/1.73 sq M.predicted among non-blacks MDRD (S/P/Bld) [Vol rate/Area] 57 mL/min/1.73 m2 Low >=59 [facility] Comment on above: Order Comment: Order added by Discern Expert. Result Comment: Electrical Tester Battery ijeoma kidney disease could be indicated at eGFR's of less than 60 mL/min/1.73m2. Kidney failure is indicated at less than 15 mL/min/1.73m2. Performed By: #### 2 333877, 35799449, 5583438, 9330905, 84633022, 7856253, 2823460 ####[facility] [address] [place] [address] Consenton 06-03-2021 Consent [id number] .00CD:127 Normal [facility] Registrationon 06-03-2021 Registration [id number] .00CD:127 Normal [facility] Basic Metabolic Panlon 04-28 Anion gap molar conc 11 mmol/L Normal 9-18 [facility] Calcium mass conc 9.0 mg/dL Normal 8.6-10.0 [facility] Chloride molar conc 101 mmol/L Normal 97-105 [facility] CO2 molar conc 29 mmol/L Normal 22-30 [facility] Creatinine mass conc 1.05 mg/dL Normal 0.73-1.22 [facility] eGFR- Amer. >60 Normal [facility] ospital GFR/1.73 sq M predicted [...] Glucose mass conc 134 mg/dL High 74-99 [facility] Comment on above: Result Comment: The [place] [employer] (ADA) provides guidance for cutoff [...] Standards of Medical Care in Diabetes 2016, [place] [employer]. Diabetes Care. 2016.39(Suppl 1). Potassium molar conc 4.6 mmol/L Normal 3.7-5.1 [facility] Sodium molar conc 141 mmol/L Normal 136-144 [facility] Urea nitrogen mass conc 18 mg/dL Normal 9-24 [facility] Anion gap molar conc 9 mmol/L Normal 9-18 [facility] Calcium mass conc 9.1 mg/dL Normal 8.6-10.0 [facility] Chloride molar conc 102 mmol/L Normal 97-105 [facility] CO2 molar conc 28 mmol/L Normal 22-30 [facility] Creatinine mass conc 1.08 mg/dL Normal 0.73-1.22 [facility] eGFR- Amer. >60 Normal [facility] ospital GFR/1.73 sq M predicted among non-blacks MDRD vol rate/area (S/P/Bld) mL/min/{1.73_m2} [facility] Comment on above: Result Comment: eGFR [...] Glucose mass conc 148 mg/dL High 74-99 [facility] Comment on above: Result Comment: The [place] [employer] (ADA) provides guidance for cutoff [...] Standards of Medical Care in Diabetes 2016, [place] [employer]. Diabetes Care. 2016.39(Suppl 1). Potassium molar conc 5.5 mmol/L High 3.7-5.1 [facility] Sodium molar conc 139 mmol/L Normal 136-144 [facility] Urea nitrogen mass conc 19 mg/dL Normal 9-24 [facility] CBCon 04-28-2018 Absolute nRBC <0.01 Normal <0.01 [facility] Erythrocyte distribution width Ratio (RBC) 12.2 [...] Entitic volume (Bld) 11.3 fL Normal 9.0-12.7 [facility] Platelets #/vol (Bld) 214 10*3/uL Normal 150-[facility] RBC #/vol (Bld) 4.28 10*6/uL Normal 4.20-6.00 [facility] WBC #/vol (Bld) 18.24 10*3/uL High 3.70-11.00 [facility] NURSING PROGon 04-28-2018 Protein mass conc HNO ID: [id number] Author: Scarlet (Rn) Selene, RN Service: (none) Author Type: Registered Nurse Type: Nursing Progress Note Filed: 04/28/2018 9:08 PM Note Text: Nursing Progress Note Patient Name: Sandra Boss [facility] Daily Note: OK to be discharged to home. IV removed. Discharge instructions given. Questions answered. Discharged home by w/c with family. This note was completed by: Scarlet Morton RN Normal [facility] Protein mass conc HNO ID: [id number] Author: Brittany DavisRn) ABDULAZIZ Cardoza Service: Nursing Author Type: Registered Nurse Type: Nursing Progress Note Filed: 04/28/2018 6:44 AM Note Text: Nursing Progress Note Patient Name: Sandra Boss Patient Location: [facility] Daily Note: Ambulated to bathroom with assistance. patient unable to void, c/o lower abdomen feeling tight . bladder scan showed > 999 cc urine. Patient straight cathed for 1025 cc clear yellow urine. This note was completed by: Brittany Cardoza RN [facility] PLAN OF CAREon 04-28-2018 PLAN OF CARE HNO ID: [id number] Author: Manuel Angeles (Licensed Insurance Agent) Service: (none) Author Type: (none) Type: Plan of Care Filed: 04/28/2018 3:11 PM Note Text: PHARMACY BEDSIDE DELIVERY SERVICE Patient Name: Sandra Boss The marked outpatient medications were Filled at: [facility] and delivered to the patient's bedside to [...] mg tablet Commonly known as: LARISA Angeles (Licensed Insurance Agent) PAGER: [email or web address] April 28, 2018 3:10 PM [facility] PLAN OF CARE HNO ID: [id number] Author: Amparo Parra (Pharmacist) Service: Pharmacy Author [...] a call to the physician. Krishan Gonzalez (Radio Television Announcer) April 28, 2018 1:41 PM Preceptor Addendum: The above case has been reviewed and discussed with the pharmacy innovation assistant. I agree with the assessment/plan described by [...] oxyCODONE IR 5 mg immediate release tablet [facility] PLAN OF CARE HNO ID: [id number] Author: Manuel Angeles ([email or web address]) Service: (none) Author Type: (none) Type: Plan of Care Filed: 04/28/2018 1:03 PM Note Text: Pharmacy Discharge Medication Service: This patient has elected to receive their discharge prescriptions through the [facility] Bedside Prescription Delivery program. The prescriptions are currently being processed. A follow-up note will be entered once the prescriptions have been filled and delivered to the patient. Please contact me with any questions or updates to the patient's discharge medications. Manuel Angeles ([email or web address]) DCT Contact Info: [facility] PLAN OF CARE HNO ID: [id number] Author: Manuel Angeles ([email or web address]) Service: (none) Author Type: (none) Type: Plan of Care Filed: 04/28/2018 1:02 PM Note Text: LOCK SETTER BEDSIDE DELIVERY SURVEY 1. Patient to use [facility] Bedside Delivery - YES 2. If fax, patient would like us to fax prescriptions to Pharmacy of choice a. Pharmacy: b. Location: c. Phone: 3. Insurance card on file - YES 4. Credit card for payment - N/A [facility] PROGRESSon 04-28-2018 Protein mass conc HNO ID: [id number] Author: Hank De Souza Service: Hospital Medicine Author Type: Physician Type: Progress Notes Filed: 04/28/2018 10:58 AM Note Text: SERVICE DATE: 04/28/2018 SERVICE TIME: 10:58 AM HOSPITAL MEDICINE PROGRESS NOTE NIGHT AND WEEKEND COVERAGE: Days: 1422-4630, please page me for patient issues. Nights: [phone], please page [facility] Hospitalist Night coverage pager [phone] HPI Patient doing well. Is able to [...] standpoint Medication and Non-Pharmacologic VTE Prophylaxis/Anticoagu lants 04/27/18 1900 pneumatic compression stockings (ok,oh) 04/27/18 1900 graduated compression stockings (ok,oh) 04/27/18 1900 graduated compression stockings (ok,oh) 04/27/18 1900 activity - mobilize patient (ok,oh) 04/27/18 1900 activity - mobilize patient (ok,oh) 04/27/18 1900 activity - mobilize patient (ok,oh) 04/27/18 1315 pneumatic compression stockings (ok,oh) 04/27/18 1315 pneumatic compression stockings (ok,oh) VTE Prophylaxis: VTE prophylaxis appropriate Plan of care discussed with: Patient and RN at bedside SIGNATURE: Hank De Souza MD PATIENT NAME: Sandra Boss DATE: April 28, 2018 TIME: 10:58 AM PAGER/CONTACT #: [phone] [facility] Protein mass conc HNO ID: [id number] Author: Christel Martin (Pa) Service: Orthopaedic Surgery Author Type: Physician Steam Clothes Press Operator Type: Progress Notes Filed: 04/28/2018 7:03 AM [...] yet, but planning for discharge home with [facility] today if clear with PT. Objective [...] hyperkalemia Case Management for discharge planning-Home with [facility] today if clear with PT ACTIVE [...] 28, 2018 TIME: 7:00 AM PAGER/CONTACT #: [phone] [facility] PT EDon 04-28-2018 PT ED HNO ID: [id number] Author: Amparo Parra (Pharmacist) Service: Pharmacy Author [...] topic Outcomes not met: N/A Krishan Gonzalez (Radio Television Announcer) Preceptor Addendum: The above case has been reviewed and discussed with the pharmacy innovation assistant. I agree with the assessment/plan described by the student. Changes and additions to the details in the above note are indicated by italics and . Amparo Parra, Pharmacist Normal [facility] THERAPY NTon 04-28-2018 THERAPY NT HNO ID: [id number] Author: Judy DavisOt/L) Derick Service: Occupational Therapy Author Type: Occupational Therapist Type: Therapy (PT/OT/Speech/Resp) Filed: 04/28/2018 4:11 PM Note Text: Occupational Therapy Evaluation SERVICE DATE: 04/28/2018 SERVICE TIME: 1034 to 1059 ROOM: [place] [address] Recommended Discharge Disposition: Home Recommended Discharge Equipment: [...] and signs-other Interventions Provided: Evaluation;Self Mcc Management (21904) $ Evaluation-Low (42826) Billed Units: 1 unit Self Mcc Management (29006) Treatment Minutes: 10 1 unit Skilled Intervention(s): [...] relating to: -functional transfers (use of leg financial services intern to assist surgical leg in/out of bed, [...] of tub or shower seat/bench w/ leg financial services intern, importance of grab bars and not bathing [...] pt. In LB AE including sock aide, batter depositor, long handled shoe horn and long handled [...] Lives With: Significant Other (fiancee) Assistance Available: timekeeper Entry To Home: Stairs;With Rail Number Of Stairs Into Home: 3 Number Of Stairs To Bed/Bath: 1st floor bed and bath Tub/Shower Type: WIS with shower chair Laundry: lauyundro-mat- fiancee completes Equipment Owned: Long Handled Shoe Horn;Powder Coater (quad cane) Prior Functional Level: Within Functional [...] for this therapy evaluation/treatment. SIGNATURE: Judy Sepulveda OT/L PATIENT NAME: Sandra Boss DATE: April 28, 2018 TIME: 4:09 PM Normal [facility] THERAPY NT HNO ID: [id number] Author: Kate Jordan (Pt) Venkat Service: Physical Therapy Author Type: Physical Therapist Type: Therapy (PT/OT/Speech/Resp) Filed: 04/28/2018 2:59 PM Note Text: Physical Therapy Treatment SERVICE DATE: 04/28/2018 SERVICE TIME: 1315 to 1340 ROOM: [place] [address] Recommended Discharge Disposition: Home PT Recommended Discharge [...] gait and mobility-other Interventions Provided: Gait Training (02630);Therapeutic Exercise (52546) Therapeutic Exercise (73658) Treatment Minutes: 8 1 unit Skilled Intervention(s): Instruction in therapeutic exercise Verbal and tactile cuing provided Seated LAQ and HS 2x10 B LE, Pt using sheet to A with full extension L knee during LAQ Gait Training (83592) Treatment Minutes: 15 1 unit Skilled Intervention(s): [...] L SUKUMAR Relevant Past Medical History: R SUKUAMR 2016, R glut repair 06/2017 Patient Report: Pt in the chair I am ready to go home Home Environment Patient Lives With: Significant Other (fiancee) Assistance Available: timekeeper Entry To Home: Stairs;With Rail Number Of [...] DATE: April 28, 2018 TIME: 2:54 PM [facility] THERAPY NT HNO ID: [id number] Author: Kate Jordan (Pt) Venkat Service: Physical Therapy Author Type: Physical Therapist Type: Therapy (PT/OT/Speech/Resp) Filed: 04/28/2018 12:37 PM Note Text: Physical Therapy Evaluation SERVICE DATE: 04/28/2018 SERVICE TIME: 734 ( eval initiated) to 929 ( EVAL, GAIT, THER EX) ROOM: [place] [address] Recommended Discharge Disposition: Home PT Recommended Discharge [...] and mobility-other Interventions Provided: Evaluation;Therapeuti c Exercise (06072);Therapeutic Activity (80048);Gait Training (98203) $ Evaluation-Low (81114) Billed Units: 1 unit Therapeutic Exercise (65824) Treatment Minutes: 10 1 unit Skilled Intervention(s): Instruction in therapeutic exercise Verbal and tactile cuing provided Pt performed in supine position: AP, QS, GS x 10 B LE, pt instructed to do every hour while awake on their own. HS, hip ABD, SAQ x 10 B LE. Pt instructed on using a sheet to A with L LE. Therapeutic Activity (56653) Treatment Minutes: 5 Skilled Intervention(s): Instructed patient in supine to sit pushing with upper extremities to sit up Gait Training (90023) Treatment Minutes: 10 1 unit Skilled Intervention(s): [...] Home Environment Patient Lives With: Significant Other (fibreanne) Assistance Available: timekeeper Entry To Home: Stairs;With Rail Number Of Stairs Into Home: 3 Number Of Stairs To Bed/Bath: 1st floor bed and bath Tub/Shower Type: WIS with shower chair Laundry: [employer] aishwarya completes Equipment Owned: (quad) Prior Functional Level: [...] DATE: April 28, 2018 TIME: 12:34 PM [facility] ANES PREOPon 04-27-2018 ANES PREOP HNO ID: [id number] Author: Cassandra Slater Service: Anesthesiology Author Type: [...] PATCH OTHER q 72 HR Christel (Pa) Veronica And scopolamine - VERIFY patch OTHER q 8 H Christel (Pa) Veronica Allergies: ALLERGIES No Known Allergies DOS [...] April 27, 2018 TIME: 1:45 PM CSN: [id number] Normal [facility] Basic Metabolic Panlon 04-27 Anion gap molar conc 10 mmol/L Normal 9-18 [facility] Calcium mass conc 9.2 mg/dL Normal 8.6-10.0 [facility] spital Chloride molar conc 101 mmol/L Normal 97-105 [facility] CO2 molar conc 27 mmol/L Normal 22-30 [facility] Creatinine mass conc 0.96 mg/dL Normal 0.73-1.22 [facility] eGFR- Amer. >60 Normal [facility] ospital GFR/1.73 sq M predicted among non-blacks MDRD vol rate/area (S/P/Bld) mL/min/{1.73_m2} Normal [facility] al Comment on above: Result Comment: [...] Glucose mass conc 126 mg/dL High 74-99 [facility] milla Comment on above: Result Comment: The [place] Diabetes Association (ADA) provides guidance for cutoff [...] Standards of Medical Care in Diabetes 2016, [place] Diabetes Association. Diabetes Care. 2016.39(Suppl 1). Potassium molar conc 5.2 mmol/L High 3.7-5.1 [facility] Sodium molar conc 138 mmol/L Normal 136-144 [facility] milla Urea nitrogen mass conc 12 mg/dL Normal 9-24 [facility] CBCon 04-27-2018 Absolute nRBC <0.01 Normal <0.01 [facility] al Erythrocyte distribution width Ratio (RBC) [...] Entitic volume (Bld) 10.7 fL Normal 9.0-12.7 [facility] Platelets #/vol (Bld) 192 10*3/uL Normal 150-400 [facility] RBC #/vol (Bld) 4.45 10*6/uL Normal 4.20-6.00 [facility] WBC #/vol (Bld) 13.46 10*3/uL High 3.70-11.00 [facility] HISTORY PHYSICALon 9 HISTORY PHYSICAL HNO ID: [id number] Author: Christel Martin (Pa) Service: Orthopaedic Surgery Author Type: Physician [employer] Operator Type: HANDP Filed: 04/27/2018 1:20 PM Note [...] PROGon 04-27-2018 Protein mass conc HNO ID: [id number] Author: Mervat Enamorado (Rn) ABDULAZIZ Morton Service: (none) Author Type: Registered Nurse Type: Nursing Progress Note Filed: 04/27/2018 8:58 PM Note Text: Nursing Progress Note Patient Name: Sandra Boss Patient Location: [place] [address]:To room 413 from PACU. [...] note was completed by: Mervat Morton RN [facility] OPERATIVE NOon 04-27-2018 OPERATIVE NO HNO ID: [id number] Author: Suman Nguyen Jr. Service: Orthopaedic Surgery Author Type: Physician Type: Operative Report Filed: 04/27/2018 5:42 PM Note Text: [facility] OPERATIVE REPORT PATIENT NAME: Sandra Boss AGE: [age] year old LOG ID: [id number] Surgery Date: 04/27/2018 SURGEON: Suman Nguyen M.D. SCIENTIFIC LINGUIST: Christel Sprague PA-C, her assistance consisted of [...] then performed. The hip was dislocated. The box annealer osteotome was utilized to lateralize the starting [...] DATE: April 27, 2018 TIME: 5:39 PM [facility] PT EDon 04-27-2018 PT ED HNO ID: [id number] Author: Samantha DavisRn) ABDULAZIZ Prince Service: Nursing Author Type: Registered [...] Signed By: Samantha Prince RN In Department: [facility] SURGERY Normal [facility] SURGICAL PATHOLOGYon 019 SURGICAL PATHOLOGY Specimen originated from [facility] Specimen #: [id number] Submitting Physician: SUMAN NGUYEN MD FINAL DIAGNOSIS [...] seen. Minimally attached soft tissue is seen. Patrol Police Lieutenant sections are submitted in the following cassettes: A1 soft tissue; A2 bone following decalcification. TN/dcr 04/28/2018 Gross examination performed at [facility], [address] [place] [address] [place] [address] Date of Report: 05/03/2018 Date of Procedure: 04/27/2018 Date of Receipt: 04/27/2018 Submitted by: SUMAN NGUYEN MD Location: [facility] Diagnostic interpretation performed at [facility], [address] [place] [address]. [facility] Comment on above: Performed By: #### [...] IMPRESSION: Left total hip prosthesis in place. Immigration Associate: PSCB Transcribe Date/Time: Apr 27 2018 6:16P Dictated by : MANISH POLLARD MD This examination was interpreted and the report reviewed and electronically signed by: MANISH POLLARD MD on Apr 27 2018 6:17PM EST [id number] [facility] NURSING PROGon 04-23-2018 Protein mass conc HNO ID: [id number] Author: Amparo (Rn) ABDULAZIZ Agudelo Service: (none) [...] Agudelo RN April 23, 2018 10:37 AM Normal [facility] HISTORY PHYSICALon HISTORY PHYSICAL HNO ID: [id number] Author: Kate Reyna Service: (none) Author Type: Physician Steam Cl[employer] Press Operator Type: HANDP Filed: 04/20/2018 9:07 AM Note [...] fevers. Neuro: No history of TIA's, stroke, BILINGUAL RECRUITER tumor, impaired sensorium, hemiplegia, paraplegia or quadraplegia. No neurological symptoms or problems. Respiratory: +Current smoker Negative for Asthma, Current cough, Dyspnea, URI < 2 weeks Cardiovascular: No history of HTN requiring medication, no history of angina, CHF, PA, cardiac surgery or stents. Denies rest pain, [...] +2. Diagnostic tests reviewed for today's visit: [facility] PCR 04/02/18: negative PENDING labs EKG 04/20/18, (pending review from dog trainer/physicia n) NSR, normal ECG All in Epic [...] 20, 2018 TIME: 8:50 AM PAGER/CONTACT #: Normal [facility] Type and SCR (30D)on 019 ABO/RH(D) Positive [facility] HOSPon 04-02-2018 HOSP Patient:Sandra Boss MRN: [...] 45.1 % 04/20/2018 51.0 39.0 Progress Notes ([facility]): RT Jeovany 04/02/2018 9:49 AM Signed [...] Calcium mass conc 8.7 mg/dL Normal 8.6-10.0 [facility] spital Chloride molar conc 103 mmol/L Normal 97-105 [facility] CO2 molar conc 25 mmol/L Normal 22-30 [facility] Creatinine mass conc 0.95 mg/dL Normal 0.73-1.22 [facility] eGFR- Amer. >60 Normal [facility] ospital GFR/1.73 sq M predicted among non-blacks MDRD vol rate/area (S/P/Bld) mL/min/{1.73_m2} [facility] Comment on above: Result Comment: eGFR [...] Glucose mass conc 127 mg/dL High 74-99 [facility] Comment on above: Result Comment: The [place] Diabetes Association (ADA) provides guidance for cutoff [...] Standards of Medical Care in Diabetes 2016, [place] Diabetes Association. Diabetes Care. 2016.39(Suppl 1). Potassium molar conc 4.6 mmol/L Normal 3.7-5.1 [facility] Sodium molar conc 138 mmol/L Normal 136-144 [facility] milla Urea nitrogen mass conc 14 mg/dL Normal 9-24 [facility] CONSULT PROGon 07-02-2017 Protein mass conc HNO ID: [id number] Author: Kacy Canela Service: Hospital Medicine Author Type: Physician Type: Consult Progress Note Filed: 07/02/2017 10:07 AM Note Text: Hospital Medicine Noted plans by primary service for discharge. BMP unremarkable. VSS Outpatient multivitamin continued on discharge med rec. Stable for discharge home from medical perspective. Will sign off. Please call with questions. Kacy Canela D.O. Staff, Department of Hospital Medicine Pager [phone] Normal [facility] PLAN OF CAREon 07-02-2017 PLAN OF CARE HNO ID: [id number] Author: Jane Mccord (Licensed Insurance Agent) Service: (none) Author Type: Stone Rubber Type: Plan of Care Filed: 07/02/2017 4:17 PM Note Text: PHARMACY BEDSIDE DELIVERY SERVICE Patient Name: Sandra D Boss The marked outpatient medications were Filled at: [facility] and delivered to the patient's bedside to [...] tablet Commonly known as: ULTRAM Jane Mccord ([email or web address]) PAGER: lucretia July 02, 2017 4:17 PM [facility] PLAN OF CARE HNO ID: [id number] Author: Jane Mccord ([email or web address]) Service: (none) Author Type: Stone Rubber Type: Plan of Care Filed: 07/02/2017 9:26 AM Note Text: Pharmacy Discharge Medication Service: This patient has elected to receive their discharge prescriptions through the [facility] Bedside Prescription Delivery program. The prescriptions are currently being processed. A follow-up note will be entered once the prescriptions have been filled and delivered to the patient. Please contact me with any questions or updates to the patient's discharge medications. Jane Mccord [email or web address]) DCT Contact Info: [facility] OF CARE HNO ID: [id number] Author: Jane Mccord ([email or web address]) Service: (none) Author Type: Stone Rubber Type: Plan of Care Filed: 07/02/2017 9:26 AM Note Text: LOCK SETTER BEDSIDE DELIVERY SURVEY 1. Patient to use [facility] Bedside Delivery - YES 2. If fax, patient would like us to fax prescriptions to Pharmacy of choice a. Pharmacy: b. Location: c. Phone: 3. Insurance card on file - YES 4. Credit card for payment - NO [facility] PLAN OF CARE HNO ID: [id number] Author: Brittany DavisRn) ABDULAZIZ Albert Service: Care [...] Gluteus Minimus Tendon Attendees Present at Rounds: [place]: y Pharmacy: y Physical Therapy: y Staff [...] July 02, 2017 TIME: 8:44 AM CSN: [id number] [facility] PROGRESSon 07-02-2017 Protein mass conc HNO ID: [id number] Author: Christel Sprague (Pa) Service: Orthopaedic Surgery Author Type: Physician Steam Clothes Press Operator Type: Progress Notes Filed: 07/02/2017 7:48 AM [...] 02, 2017 TIME: 7:45 AM PAGER/CONTACT #: [phone] [facility] THERAPY NTon 07-02-2017 THERAPY NT HNO ID: [id number] Author: Kate Jordan (PtAnne Robledo Service: Physical Therapy Author Type: Physical Therapist Type: Therapy (PT/OT/Speech/Resp) Filed: 07/02/2017 3:45 PM Note Text: Physical Therapy Evaluation SERVICE DATE: 07/02/2017 SERVICE TIME: 6975 to 1458 ROOM: [place] [address] Recommended Discharge Disposition: Home Recommended Discharge Disposition [...] Diagnosis: Reduced mobility-other Interventions Provided: Evaluation;Gait Training (74004) $ Evaluation-Low (07799) Billed Units: 1 unit Gait Training (82123) Treatment Minutes: 8 1 unit Skilled Intervention(s): [...] CODE: PT 6 Clicks Score: 24 (07/02/17 1791) Mobility: Walking and Moving Around Current Status [...] Patient Lives With: Significant Other Assistance Available: timekeeper Entry To Home: Stairs;With Rail Number Of [...] 02, 2017 TIME: 3:41 PM PAGER/CONTACT #: [phone] [facility] ANES Luan 07-01-2017 ANES POST HNO ID: [id number] Author: Cassandra Slater Service: Anesthesiology Author Type: Physician Type: Anesthesia PostOp Filed: 07/01/2017 6:42 PM Note Text: POST ANESTHESIA EVALUATION NOTE SERVICE DATE: 07/01/2017 SERVICE TIME: 184 : 1965 Vitals: 07/01/17 1337 07/01/17 182 Temp: 36.6 ?C (97.9 ?F) 36.2 ?C (97.2 ?F) 07/01/17 1337 07/01/17 18207/01/17 183 BP: 144/91 116/82 125/89 07/01/17 13307/01/17 18207/01/17 183 Pulse: 78 73 61 07/01/177 07/01/17 18207/01/17 183 Resp: 18 12 16 07/01/177 07/01/17 18207/01/17 183 SpO2: 97% 98% 97% [...] 01, 2017 TIME: 6:41 PM PAGER/CONTACT #: [phone] [facility] ANES PREOPon 07-01-2017 ANES PREOP HNO ID: [id number] Author: Cassandra Slater Service: Anesthesiology Author Type: [...] (ANCEF) 2 g INTRAVENOUS Pre-Op Once Christel (Tree Sprague scopolamine 1 mg over 3 days 1 Patch (TRANSDERM-SCOP) 1 Patch TRANSDERMAL q 72 HR Christel (Chau) Celestine 1 Patch at 07/01/17 1413 And [START [...] July 01, 2017 TIME: 3:51 PM CSN: [id number] [facility] CONSULTon 07-01-2017 CONSULT HNO ID: [id number] Author: Adalgisa Lovett Service: Hospital Medicine Author [...] July 01, 2017 TIME: 9:53 PM Normal [facility] HISTORY PHYSICALon 8 HISTORY PHYSICAL HNO ID: [id number] Author: Christel Sprague (Pa) Service: Orthopaedic Surgery Author Type: Physician Steam Clothes Press Operator Type: HANDP Filed: 07/01/2017 1:38 PM Note [...] July 01, 2017 TIME: 1:38 PM PAGER: [facility] NURSING PROGon 07-01-2017 Protein mass conc HNO ID: [id number] Author: Brooke Hutchinson) ABDULAZIZ Zuniga Service: Nursing Author Type: Registered Nurse Type: Nursing Progress Note Filed: 07/01/2017 8:28 PM Note Text: Nursing Progress Note Patient Name: Sandra Boss [facility] Daily Note: Pt to rm 506 via bed from PACU. Pt awake AND alert. Resps even AND unlabored. Dressing to right hip dry AND intact. Denzel wrap to right leg. Abduction pillow in place. Good pedal pulses. Pt states still with some numbness AND tingling to lower right leg. Feels burning to right thigh area. This note was completed by: Brooke Zuniga, ABDULAZIZ [facility] OPERATIVE NOon 07-01-2017 OPERATIVE NO HNO ID: [id number] Author: Suman Nguyen Jr. Service: Orthopaedic Surgery Author Type: Physician Type: Operative Report Filed: 07/06/2017 1:59 PM Note Text: [facility] - Operative Report SANDRA BOSS : 1965 AGE: 51 SEX: M [facility]: [id number] [facility] LOCATION: [address] ATTENDING PHYSICIAN: Suman Nguyen M.D. DATE OF [...] the abductor muscles. SURGEON: Suman Nguyen M.D. SCIENTIFIC LINGUIST: Christel Sprague PA-C. Her assistance consisted of [...] to the bone, but it was repaired [id number] with the remnant of the intact portion of the gluteus medius. At this point in time, utilizing a [employer] whipstitch, the 5.0 Fiber[employer]ape was run up [...] of the gluteus medius was then reinforced [id number] with the intact portion of the trochanter [...] He will wear a hip abduction orthosis timekeeper 3 months. He will be weightbearing as tolerated with that. He will receive appropriate pain medications and 24 hours of appropriate antibiotic coverage. Suman Nguyen M.D. Orthopaedic Surgery CateG:[id number] [facility] 07-01-2017 PT ED HNO ID: [id number] Author: Kimber DavisRn) ABDULAZIZ Gold Service: (none) Author Type: Registered Nurse Type: Patient Education Filed: 07/01/2017 6:41 PM Note Text: Pt tolerating fluids. Talking with family at bedside. Will continue to monitor patient. [facility] PT ED HNO ID: [id number] Author: Veronica Lang RN Service: Nursing Author Type: Registered Nurse [...] Signed By: Veronica Lang RN In Department: [facility] SURGERY [facility] NURSING PROGon 06-30-2017 Protein mass conc HNO ID: [id number] Author: Winnie DavisRn) ABDULAZIZ Krfat Service: Neurosurgery Author Type: Registered Nurse Type: [...] Kraft RN June 30, 2017 2:07 PM [facility] HOSPon 06-29-2017 HOSP Patient:Sandra Boss MRN: [...] for the following basenames: K,HCT Progress Notes ([facility]): Kenzie Enamorado [employer] Med Sec 06/29/2017 10:41 AM Signed Called patient with date, time and location for pre admission testing scheduled on 06/2017 at the [facility]. Left message for patient to return my call to confirm receipt of message. Progress Notes ([facility]): Suman Nguyen Jr, MD 06/26/2017 5:19 PM Signed Ortho Hip Follow Up Note Narrative [place]: [place] [id number] [facility] [address] PCP: Rio Alanis MD === IMPRESSION/PLAN: Impressions [...] 182.88 cm Clare Brandt DO Work Phone: [facility] 06-20-2024 09:21-0400 Body mass index (BMI) [Ratio] 23.3 kg/m2 Clare Brandt DO Work Phone: [facility] 06-20-2024 09:21-0400 Body temperature 98.2 [degF] Clare Brandt DO Work Phone: [facility] 06-20-2024 09:21-0400 Body weight 78.01 kg Clare Brandt DO Work Phone: [facility] 06-20-2024 09:21-0400 Diastolic blood pressure 80 mm[Hg] Clare Brandt DO Work Phone: [facility] 06-20-2024 09:21-0400 Heart rate 78 /min Clare Brandt DO Work Phone: [facility] 06-20-2024 09:21-0400 SaO2% (BldA) [Mass fraction] 97 % Clare Brandt DO Work Phone: [facility] 06-20-2024 09:21-0400 Systolic blood pressure 110 mm[Hg] Clare Brandt DO Work Phone: [facility] 05-02-2024 11:43-0500 Diastolic blood pressure 80 mm[Hg] [facility] 05-02-2024 11:43-0500 Heart rate 102 /min [facility] 05-02-2024 11:43-0500 Heart rate 92 /min Clare Ramirezley DO Work Phone: [facility] 05-02-2024 11:43-0500 SaO2% (BldA) [Mass fraction] 96 % [facility] 05-02-2024 11:43-0500 Systolic blood pressure 112 mm[Hg] [facility] 05-02-2024 11:26-0500 Body height 182.88 cm [facility] 05-02-2024 11:26-0500 Body mass index (BMI) [Ratio] 22.1 kg/m2 [facility] 05-02-2024 11:26-0500 Body weight 73.93 kg [facility] 04-21-2024 10:38-0500 SaO2% (BldA) [Mass fraction] 98 % Heriberto Carrera MD Work Phone: [facility] 04-21-2024 10:35-0500 Body height 182.9 cm Heriberto Carrera MD Work Phone: [facility] 12-31-2022 09:32-0400 SaO2% (BldA) [Mass fraction] 98 % Heriberto Carrera MD Work Phone: [facility] 12-31-2022 09:30-0400 Body height 182.9 cm Heriberto Carrera MD Work Phone: [facility] 12-31-2022 09:30-0400 Body weight 72.12 kg Heriberto Carrera MD Work Phone: [facility] 12-31-2022 09:30-0400 Diastolic blood pressure 61 mm[Hg] Heriberto Carrera MD Work Phone: [facility] 12-31-2022 09:30-0400 Heart rate 61 /min Heriberto Carrera MD Work Phone: [facility] 12-31-2022 09:30-0400 Systolic blood pressure 101 mm[Hg] Heriberto Carrera MD Work Phone: [facility] 07-16-2022 13:43-0400 SaO2% (BldA) [Mass fraction] 95 % Heriberto Carrera MD Work Phone: [facility] 07-16-2022 13:41-0400 Diastolic blood pressure 91 mm[Hg] Heriberto Carrera MD Work Phone: [facility] 07-16-2022 13:41-0400 Systolic blood pressure 120 mm[Hg] Heriberto Carrera MD Work Phone: [facility] 07-16-2022 13:38-0400 Heart rate 65 /min Heriberto Carrera MD Work Phone: [facility] 04-21-2022 14:30-0500 Body height 179.07 cm Andi Eason Other [employer] Other 04-21-2022 14:30-0500 Body temperature 97.1 [degF] Andi Yumi Other [employer] Other 04-21-2022 14:30-0500 Diastolic blood pressure 82 mm[Hg] Andi Yumi Other [employer] Other 04-21-2022 14:30-0500 Systolic blood pressure 129 mm[Hg] Andi Yumi Other [employer] Other 12-23-2021 14:15-0400 Body height 179.07 cm Andi Yumi Other [employer] Other 12-23-2021 14:15-0400 Body mass index (BMI) [Ratio] 23.34 kg/m2 Andi Yumi Other [employer] Other 12-23-2021 14:15-0400 Body temperature 98.3 [degF] Andi Eason Other [employer] Other 12-23-2021 14:15-0400 Body weight 74.84 kg Andi Eason Other [employer] Other 12-23-2021 14:15-0400 Diastolic blood pressure 81 mm[Hg] Andi Eason Other [employer] Other 12-23-2021 14:15-0400 Systolic blood pressure 120 mm[Hg] Andi Eason Other [employer] Other 12-05-2021 14:01-0400 Diastolic blood pressure 85 mm[Hg] IMPROVEMENT ADVISOR-C Anna Wanda Work Phone: [facility] 12-05-2021 14:01-0400 Heart rate 64 /min IMPROVEMENT ADVISOR-C Anna Wanda Work Phone: [facility] 12-05-2021 14:01-0400 Respiratory rate 16 /min IMPROVEMENT ADVISOR-C Anna Wanda Work Phone: [facility] 12-05-2021 14:01-0400 SaO2% (BldA) [Mass fraction] 99 % IMPROVEMENT ADVISOR-C Anna Wanda Work Phone: [facility] 12-05-2021 14:01-0400 Systolic blood pressure 125 mm[Hg] IMPROVEMENT ADVISOR-C Anna Wanda Work Phone: [facility] 12-05-2021 13:59-0400 Body height 182.88 cm IMPROVEMENT ADVISOR-C Anna Wanda Work Phone: [facility] 12-05-2021 13:59-0400 Body weight 74.84 kg IMPROVEMENT ADVISOR-C Anna Wanda Work Phone: [facility] 10-24-2021 15:00-0400 Body height 179.07 cm Andi Eason Other [employer] Other 10-24-2021 15:00-0400 Body mass index (BMI) [Ratio] 22.63 kg/m2 Andi Eason Other [employer] Other 10-24-2021 15:00-0400 Body temperature 98.1 [degF] Andi Eason Other [employer] Other 10-24-2021 15:00-0400 Body weight 72.58 kg Andi Eason Other [employer] Other 10-24-2021 15:00-0400 Diastolic blood pressure 93 mm[Hg] Andi Eason Other [employer] Other 10-24-2021 15:00-0400 Systolic blood pressure 129 mm[Hg] Andi Eason Other [employer] Other 09-19-2021 08:39-0400 Diastolic blood pressure 60 mm[Hg] IMPROVEMENT ADVISOR-C Anna Wanda Work Phone: [facility] 09-19-2021 08:39-0400 Heart rate 65 /min IMPROVEMENT ADVISOR-C Anna Wanda Work Phone: [facility] 09-19-2021 08:39-0400 Respiratory rate 18 /min IMPROVEMENT ADVISOR-C Anna Wanda Work Phone: [facility] 09-19-2021 08:39-0400 SaO2% (BldA) [Mass fraction] 98 % IMPROVEMENT ADVISOR-C Anna Wanda Work Phone: [facility] 09-19-2021 08:39-0400 Systolic blood pressure 99 mm[Hg] IMPROVEMENT ADVISOR-C Anna Wanda Work Phone: [facility] 09-19-2021 06:49-0400 Body height 177.8 cm IMPROVEMENT ADVISOR-C Anna Wanda Work Phone: [facility] 09-19-2021 06:49-0400 Body weight 77.11 kg IMPROVEMENT ADVISOR-C Anna Wanda Work Phone: [facility] 08-14-2021 15:15-0400 Body height 179.07 cm Andi Eason Other [employer] Other 08-14-2021 15:15-0400 Body mass index (BMI) [Ratio] 22.63 kg/m2 Andi Eason Other [employer] Other 08-14-2021 15:15-0400 Body temperature 98.8 [degF] Andi Eason Other [employer] Other 08-14-2021 15:15-0400 Body weight 72.58 kg Andi Eason Other [employer] Other 08-14-2021 15:15-0400 Diastolic blood pressure 84 mm[Hg] Andi Eason Other [employer] Other 08-14-2021 15:15-0400 Systolic blood pressure 127 mm[Hg] Andi Eason Other [employer] Other 07-29-2021 14:30-0400 Body height 179.07 cm Andi Eason Other [employer] Other 07-29-2021 14:30-0400 Body mass index (BMI) [Ratio] 22.63 kg/m2 Andi Eason Other [employer] Other 07-29-2021 14:30-0400 Body temperature 98.2 [degF] Andi Eason Other [facility] Other 07-29-2021 14:30-0400 Body weight 72.58 kg Andi Eason Other [facility] Other 07-29-2021 14:30-0400 Diastolic blood pressure 87 mm[Hg] Andi Eason Other [facility] Other 07-29-2021 14:30-0400 Systolic blood pressure 140 mm[Hg] Andi Eason Other [facility] Other Encounters Encounter Date Encounter Type Care Provider Facility Start: 07-26-2024 End: 07-26-2024 ambulatory Clare Prince Nikita DO Work Phone: [facility] Work Phone: Start: 07-26-2024 End: 07-26-2024 Departed Referred Clare Ramirezley DO Work Phone: [facility] Start: 07-20-2024 End: 07-20-2024 ambulatory Tita Marin APRN.HULL GRINDER Work Phone: [facility] Comment on above: Parkinson's disease without dyskinesia, with fluctuating manifestations (HCC) (Primary Dx); RLS (restless legs syndrome); Insomnia, unspecified type Start: 07-20-2024 End: 07-20-2024 Telemedicine consultation with patient Tita Marin APRN.HULL GRINDER Work Phone: [facility] Start: 07-18-2024 End: 07-18-2024 Telephone encounter Heriberto Carrera MD Work Phone: [facility] Comment on above: Release of Informati on Start: 07-14-2024 End: 07-14-2024 Refill Clair Monique PA-C Work Phone: [facility] Comment on above: Refill Request Start: 07-12-2024 End: 07-12-2024 Refill Clair Monique PA-C Work Phone: [facility] Comment on above: Refill Request Start: 06-20-2024 End: 06-20-2024 ambulatory Clare Suresh Nikita DO Work Phone: [facility] Work Phone: Start: 06-20-2024 End: 06-20-2024 Patient encounter procedure Clare Brandt DO Work Phone: [facility] [place] Work Phone: Start: 05-08-2024 End: 05-09-2024 Refill Clair Monique PA-C Work Phone: [facility] Comment on above: Refill Request Start: 05-06-2024 End: 05-06-2024 Patient encounter procedure Clare Brandt DO Work Phone: [facility] Start: 05-02-2024 End: 05-02-2024 ambulatory [facility] Work Phone: Start: 05-02-2024 End: 05-02-2024 Patient encounter procedure [facility] Work Phone: Start: 04-22-2024 End: 05-02-2024 ambulatory Heriberto Carrera MD Work Phone: [facility] Comment on above: Lab work Start: 04-22-2024 End: 05-02-2024 E-mail encounter from caregiver Heriberto Carrera MD Work Phone: [facility] Start: 04-21-2024 End: 04-21-2024 ambulatory CLAIR AMAYA Facility:[facility] Start: 04-21-2024 End: 04-21-2024 Office outpatient visit 25 minutes Heriberto Carrera MD Work Phone: [facility] Comment on above: Parkinson's disease without dyskinesia, with fluctuating manifestations (HCC) (Primary Dx); Neuropathy; RLS (restless legs syndrome); Restless leg syndrome, nonfamilial, uncontrolled Start: 03-09-2024 End: 03-09-2024 Refill Clair Amaya PA-C Work Phone: [facility] Comment on above: Refill Request Start: 02-25-2024 End: 02-25-2024 Refill Heriberto Carrera MD Work Phone: [facility] Comment on above: Refill Request Start: 02-03-2024 End: 02-03-2024 ambulatory Clair Amaya PA-C Work Phone: [facility] Comment on above: Parkinson's disease without dyskinesia, with fluctuating manifestations (HCC) (Primary Dx) Start: 02-03-2024 End: 02-03-2024 Telemedicine consultation with patient Clair Monique PA-C Work Phone: [facility] Start: 02-01-2024 End: 02-02-2024 Refill Heriberto Carrera MD Work Phone: [facility] Comment on above: Refill Request Start: 01-29-2024 End: 01-29-2024 Refill Heriberto Carrera MD Work Phone: [facility] Comment on above: Refill Request Start: 11-01-2023 Refill Asa zimmerman MD Work Phone: [facility] Comment on above: Refill Request Start: 09-27-2023 Refill Heriberto Carrera MD Work Phone: [facility] Comment on above: Refill Request Start: 07-23-2023 End: 07-23-2023 ambulatory Vickie Garibay [facility] Facility:[facility] Start: 07-23-2023 End: 07-23-2023 ambulatory DPM Vickie [facility] Work Phone: [facility] Work Phone: Start: 07-23-2023 End: 07-23-2023 Departed Referred DPM [facility] Work Phone: [facility] Start: 07-15-2023 Refill Heriberto Carrera MD Work Phone: [facility] Comment on above: Refill Request Start: 04-17-2023 End: 04-17-2023 ambulatory SUMAN Whitley [facility] Start: 03-27-2023 End: 03-27-2023 Emergency department patient visit ANNA S WANDA [facility] Start: 02-02-2023 End: 02-02-2023 Emergency department patient visit LIORMarylou RAMIREZ [facility] Start: 12-31-2022 End: 12-31-2022 Office outpatient visit 25 minutes Heriberto Carrera MD Work Phone: [facility] Comment on above: Parkinson's disease (HCC) (Primary Dx) Start: 08-26-2022 End: 08-27-[address] [facility] Start: 07-28-2022 Refill Heriberto Carrera MD Work Phone: [facility] Comment on above: Refill Request Start: 07-19-2022 End: 07-20-[address] KENYATTA GOLDSTEIN . Facility:[facility]1 Start: 07-16-2022 End: 07-16-2022 Office outpatient new 45 minutes Heriberto Carrera MD Work Phone: [facility] Comment on above: Parkinson's disease (HCC) (Primary Dx); Anxiety Start: 07-10-2022 End: 07-11-2022 ambulatory ANNA MUÑOZ Facility:[facility] Start: 07-01-2022 Telephone encounter Humberto Diaz MD Work Phone: Neurology Comment on above: External Referrals/r esources Start: 06-19-2022 End: 06-19-2022 ambulatory ANNA MUÑOZ Facility:[facility] Start: 06-17-2022 Encounter for other preprocedural examination [facility] Start: 06-17-2022 Encounter for preprocedural cardiovascular examination [facility] Start: 06-17-2022 Encounter for preprocedural laboratory examination [facility] Start: 06-16-2022 End: 06-17-2022 ambulatory ANNA MUÑZO Facility:[facility] Start: 06-16-2022 End: 06-17-2022 Encounter for preprocedural laboratory examination ANNA MUÑOZ Facility:[facility] Start: 06-04-2022 End: 06-05-2022 ambulatory Saurav Kerns Facility:[facility] Start: 04-21-2022 End: 04-21-2022 ambulatory Andi Eason Other [facility] Other Start: 04-21-2022 Office outpatient vi sit [...] 12-23-2021 End: 12-23-2021 ambulatory Andi Eason Other [facility] Other Start: 12-23-2021 Office outpatient vi sit 25 minutes Andi Eason [facility] Start: 12-10-2021 End: 12-10-2021 Patient encounter procedure IMPROVEMENT ADVISOR-C Anna Wanda Work Phone: [facility] [facility] Start: 12-05-2021 End: 12-05-2021 Patient encounter procedure IMPROVEMENT ADVISOR-C Anna Wanda Work Phone: [facility]-MRI Main [place] Start: 11-25-2021 End: 11-25-2021 ambulatory Andi Eason Other [facility] Other Start: 11-25-2021 Telephone encounter Andi Eason [facility] Start: 11-15-2021 End: 11-16-2021 ambulatory VICKIE HATR Facility:[facility] Start: 11-14-2021 End: 11-15-2021 ambulatory ANNA MUÑOZ Facility:[facility] Start: 11-01-2021 End: 11-02-2021 ambulatory Saurav Kerns Facility:[facility] Start: 10-31-2021 End: 10-31-2021 ambulatory IMPROVEMENT ADVISOR-C Anna Esperanza Wanda Work Phone: [facility] Work Phone: Start: 10-31-2021 End: 10-31-2021 Discharged Recurring IMPROVEMENT ADVISOR-C Anna Wanda Work Phone: [facility]-Physical Therapy [place] Start: 10-31-2021 Registered Recurring IMPROVEMENT ADVISOR-C Aneta la Wanda Work Phone: [facility] [place] Start: 10-24-2021 End: 10-24-2021 ambulatory Andi Eason Other [facility] Other Start: 10-24-2021 Office outpatient vi sit 25 minutes Andi Eason [facility] Start: 10-18-2021 End: 10-19-2021 ambulatory VICKIE HART Facility:[facility] Start: 10-11-2021 End: 10-12-2021 ambulatory VICKIE HART Facility:[facility] Start: 10-04-2021 End: 10-05-2021 ambulatory Saurav Kerns Facility:[facility] Start: 09-27-2021 End: 09-28-2021 ambulatory VICKIE HART Facility:[facility] Start: 09-25-2021 End: 09-25-2021 ambulatory Andi Eason Other [facility] Other Start: 09-25-2021 Telephone encounter Andi MEYERS [facility] Start: 09-19-2021 End: 09-19-2021 Patient encounter procedure JALYN Muñoz Work Phone: [facility] [place] Start: 09-18-2021 End: 09-19-2021 ambulatory VICKIE HART Facility:[facility] Start: 09-18-2021 End: 09-19-2021 ambulatory SHIRLEY CASTILLO Facility:[facility] Start: 09-13-2021 End: 09-14-2021 ambulatory VICKIE HART Facility:[facility] Start: 09-06-2021 End: 09-07-2021 ambulatory Saurav Kerns Facility:[facility] Start: 08-22-2021 End: 08-22-2021 ambulatory Andi Eason Other [facility] Other Start: 08-22-2021 Telephone encounter Andi MEYERS [facility] Start: 08-14-2021 End: 08-14-2021 ambulatory Andi Eason Other [facility] Other Start: 08-14-2021 Office outpatient vi sit 25 minutes Andi Eason [facility] Start: 07-29-2021 End: 07-29-2021 ambulatory Andi Eason Other [facility] Other Start: 07-29-2021 Office outpatient vi sit 25 minutes Andi BHAKTA [facility] Start: 06-21-2021 End: 06-21-2021 ambulatory Michael Guzmanley Other [facility] Other Start: 06-21-2021 Telephone encounter Michael [facility] [place] Start: 01-16-2021 Telephone encounter Michael MEYERS [facility] Start: 01-09-2021 Telephone encounter Michael Bond [facility] Start: 01-02-2021 Postop follow up vis it related to original px Michael BHAKTA [facility] Start: 01-02-2021 Telephone encounter Michael Bond [facility] Start: 04-27-2018 End: 04-28-2018 Patient encounter procedure [facility] Start: 04-20-2018 Encounter for other preprocedural examination [facility] Start: 04-20-2018 End: 04-20-2018 Patient encounter procedure [facility] Start: 07-01-2017 End: 07-02-2017 Patient encounter procedure [facility] Procedures Date Procedure Procedure Detail Performing Clinician Start: 12-10-2021 X-ray of left ankle IMPROVEMENT ADVISOR- C Anna Muoñz Work Phone: Start: 12-05-2021 XR pre/post mri xray IMPROVEMENT ADVISOR -C Anna Muñoz Work Phone: Start: 12-05-2021 MRI of cervical spin e without contrast IMPROVEMENT ADVISOR-C Anna Wanda Work Phone: Start: 09-19-2021 MRI of head IMPROVEMENT ADVISOR-C Rayael a Wanda Work Phone: Start: 04-20-2018 Antibody screen [facility] Start: 04-20-2018 Electrocardiogram CHRISTINE NGUYEN Plan of Treatment Date Care Activity Detail Author Start: 03-27-2026 Diabetes Screening Diabetes Screenkelvin [facility] Start: 10-19-2024 End: 10-19-2024 Patient encounter procedure 10/19/2024 9:00 AM EDT Office Visit [facility] [address] [place] [address] Tita Marin, ASSISTANT GROCERY.HULL GRINDER [address] [address] Parkinsons [facility] Comment on above: Parkinsons Start: 07-20-2024 End: 07-20-2024 Follow-up encounter 07/20/2024 1:00 PM EDT [facility] [address] [place] [address] Tita Marin, ASSISTANT GROCERY.HULL GRINDER [address] [place] [address] Follow up [facility] Comment on above: Follow up Start: 04-21-2024 End: 04-21-2024 Patient encounter procedure 04/21/2024 11:00 AM EST Office Visit [facility] [address] [place] [address] Heriberto Carrera MD [address] [place] [address] [facility] Start: 04-12-2024 End: 04-12-2024 Patient encounter procedure 04/12/2024 3:30 PM EST Office Visit [facility] [address] [place] [address] Heriberto Carrera MD [address] [place] [address] [facility] Start: 02-25-2024 End: 05-26-2024 CBC panel - Blood by Automated count COMPLETE BLOOD COUNT Lab Routine Screening due Expected: 02/25/2024, Expires: 05/26/2024 [facility] Work Phone: Comment on above: Expected: 02/25/2024 , Expires: 05/26/2024 Start: 02-25-2024 End: 05-26-2024 CREATININE BLD CREATININE BLD Lab Routine Screening due Expected: 02/25/2024, Expires: 05/26/2024 [facility] Comment on above: Expected: 02/25/2024 , Expires: 05/26/2024 Start: 02-25-2024 End: 05-26-2024 Hepatic function 2000 panel - Serum or Plasma HEPATIC FUNCTION PNL Lab Routine Screening due Expected: 02/25/2024, Expires: 05/26/2024 [facility] Comment on above: Expected: 02/25/2024 , Expires: 05/26/2024 Start: 02-03-2024 End: 02-03-2024 [facility] 02/03/2024 8:00 AM EDT [facility] [address] [place], [place] [id number] Clair Amaya PA-C [address] [place] [address] Tremors, patient is requesting a refill of medication, had been out of medication since 01/25 and per pt when he called the office to request a refill they told him he would need an appointment first. [facility] Comment on above: Tremors, patient is requesting a refill of medication, had been out of medication since 01/25 and per pt when he called the office to request a refill they told him he would need an appointment first. Start: 12-13-2023 Covid-19 Vaccine ( season) Covid-19 Vaccine ( season) [facility] Start: 12-13-2023 Influenza vaccination [facility] Start: 04-13-2023 Behavioral Health Screening Behavioral Health Screening [facility] Start: 12-12-2022 Covid-19 Vaccine ( season) Covid-19 Vaccine ( season) [facility] Start: 12-12-2022 Influenza vaccination C [facility] Start: 04-13-2022 DEPRESSION ASSESSMENT DEPRESSION ASS ESSMENT [facility] Start: 12-12-2021 Influenza vaccination INFLUENZA (#1) [facility] Start: 12-10-2021 End: 12-10-2021 [facility] Start: 12-10-2021 X-ray of left ankle XR ankle LT min 3V* [facility] Start: 04-28-2021 DIABETES SCREEN DIABETES SCREEN [facility] Start: 04-28-2021 Diabetes Screening Diabetes Screenin g [facility] Start: 2020 PROSTATE CANCER SCREENING DISCUSSION PROSTATE CANCER SCREENING DISCUSSION [facility] Start: 2020 Prostate specific antigen measurement Prostate Cancer Screening Discussion [facility] Start: 11-29-2015 SHINGRIX VACCINE (1 of 2) SHINGRIX VACCINE (1 of 2) [facility] Start: 2010 COLOGUARD (FIT-DNA) COLOGUARD (FIT-D NA) [facility] Start: 2010 Colonoscopy COLONOSCOPY [facility] Start: 2010 COLORECTAL CANCER SCREENING COLORECTAL CANCER SCREENING [facility] Start: [address] COLONOGRAPHY [facility] Start: 2010 FECAL OCCULT BLOOD FECAL OCCULT BLOO D [facility] Start: 2010 Screening for malign ant neoplasm of colon [facility] Start: 2010 SIGMOIDOSCOPY SIGMOIDOSCOPY [facility] Start: 2000 Lipid 1996 panel - Serum or Plasma Lipid Screening [facility] Start: 2000 Lipid panel Lipid Screening [facility] Start: 2000 LIPID SCREEN LIPID SCREEN [facility] Start: 1984 Hepatitis B Vaccine (1 of 3 - 19+ 3-dose series) Hepatitis B Vaccine (1 of 3 - 19+ 3-dose series) [facility] Start: 1984 Pneumococcal Vaccine : 50+ (1 of 2 - PCV) Pneumococcal Vaccine: 50+ (1 of 2 - PCV) [facility] Start: 1984 Urine microalbumin profile [facility] Start: 11-29-1983 Anxiety Screening Anxiety Screening [facility] Start: 11-29-1983 Depression Screening Depression Scre ening [facility] Start: 11-29-1983 HEPATITIS C SCREENING HEPATITIS C [facility] Start: 11-29-1983 Hepatitis C screening Hepatitis C [facility] Start: 11-29-1983 HIV SCREENING HIV SCREENING [facility] Start: 11-29-1983 HIV screening HIV Screening [facility] Start: 11-29-1971 PNEUMOCOCCAL (1 - PCV) PNEUMOCOCCAL (1 - PCV) [facility] Start: 11-29-1971 Pneumococcal vaccination [facility] Start: 05-31-1966 COVID-19 VACCINE (#1) COVID-19 VACCI NE (#1) [facility] Start: 1965 HEPATITIS B (1 of 3 - 3-dose series) HEPATITIS B (1 of 3 - 3-dose series) [facility] Start: 1965 Hepatitis B Vaccine (1 of 3 - 3-dose series) Hepatitis B Vaccine (1 of 3 - 3-dose series) [facility] Payers Date Payer Category Payer Self-pay [id number] 2023 Medicare [facility]ED [facility] [id number] 2023-Present [phone] [address] BREANNA RODRIGUEZ [id number] [facility] [id number] 2023 Private Health Insurance [facility] [id number] 2023 Unknown [id number] 2023 Medicare [id number] 2022 Medicaid [employer] [id number] 2022-Present [phone] [address] [place] [address] Medicaid [id number] 1965 Unknown [id number] 2.16.840.1.654917.3.579.2. 593 1965 Unknown [id number] 2.16.840.1.585436.3.579.2. 593 1965 Unknown [id number] 2.16.840.1.515833.3.579.2. 593 1965 Unknown [id number] 2.16.840.1.012433.3.579.2. 593 1965 Unknown [id number] 2.16.840.1.883171.3.579.2. 593 1965 Unknown [id number] 2.16.840.1.218838.3.579.2. 593 1965 Unknown [id number] 2.16.840.1.699473.3.579.2. 59 1965 Unknown [id number] 2.16.840.1.221771.3.579.2. 593 1965 Unknown [id number] 2.16.840.1.722447.3.579.2. 593 1965 Unknown [id number] 2.16.840.1.091401.3.579.2. 593 1965 Unknown [id number] 2.16.840.1.767282.3.579.2. 593 1965 Unknown [id number] 2.16.840.1.274219.3.579.2. 593 1965 Unknown [id number] 2.16.840.1.755861.3.579.2. 593 1965 Unknown [id number] 2.16.840.1.203384.3.579.2. 593 1965 Unknown [id number] 2.16.840.1.234853.3.579.2. 593 1965 Unknown [id number] 2.16.840.1.046647.3.579.2. 593 1965 Unknown [id number] 2.16.840.1.914140.3.579.2. 593 1965 Unknown [id number] 2.16.840.1.774700.3.579.2. 593 1965 Unknown [id number] 2.16.840.1.778767.3.579.2. 593 1965 Unknown [id number] 2.16.840.1.928651.3.579.2. 593 1965 Unknown [id number] 2.16.840.1.970787.3.579.2. 593 1965 Unknown [id number] 2.16.840.1.784900.3.579.2. 593 1965 Unknown [id number] 2.840.1.032933.3.579.2. 182 1965 Unknown [id number] 2.840.1.188226.3.579.2. 182 1965 Unknown [id number] 2.0.1.253345.3.579.2. 182 1959 Medicaid [id number] 2.840.1.191429.19 Private Health Insurance [facility] [id number] Self-pay [id number] 2.840.1.591251.19 Self-pay [id number] Self-pay [id number] 2.840.1.926266.19 Unknown [employer] BC/BS [id number] Unknown Regular Insurance [id number] Unknown [id number] 2.16.840.1.973735.3.579.2. 531 Social History Date Type Detail Facility Unknown if ever smoked [facility] Other Start: 03-18-2020 End: 12-31-2022 Sex Assigned At [facility] Start: 12-05-2020 Tobacco smoking stat us MNIS Smoker (finding) [facility] Start: 1965 Sex Assigned At Male F [facility] Start: 06-30-2002 End: 07-16-2022 Tobacco smoking status MNIS Smokes tobacco daily [facility] Work Phone: Start: 06-30-2002 History of tobacco use Cigarette Smo ker [facility] Work Phone: Start: 04-20-2018 End: 03-18-2020 Cigarettes smoked current (pack per day) - Reported 1 [facility] Start: 04-20-2018 End: 07-16-2022 Tobacco use and exposure Smokeless tobacco non-user [facility] Work Phone: Start: 04-27-2018 End: 12-31-2022 Alcohol intake Current non-drinker of alcohol (finding) [facility] Start: 04-20-2018 End: 07-16-2022 Tobacco Comment Currently down to 1-2 a day (04/20/18) [facility] Start: 1965 Sex Assigned At Not on file [facility] Adult Depression Screening Assessment 2 [facility] Start: 05-02-2024 End: 06-20-2024 Tobacco smoking status NHIS Ex-smoker (finding) [facility] Start: 05-02-2024 End: 07-27-2024 Sex Male (finding) [facility] Medical Equipment Procedure Code Equipment Code Equipment Origin al Text Equipment Identifier Dates ORIF, fracture, ankle Orthopaedic bone screw, non-bioabsorbable, non-sterile ()[id number] FDA Start: 10-09-2020 ORIF, fracture, ankle Orthopaedic bone screw, non-bioabsorbable, non-sterile ()[id number] FDA Start: 10-09-2020 ORIF, fracture, ankle Orthopaedic bone screw, non-bioabsorbable, non-sterile ()[id number] FDA Start: 10-09-2020 ORIF, fracture, ankle Orthopaedic bone screw, non-bioabsorbable, non-sterile ()[id number] FDA Start: 10-09-2020 ORIF, fracture, ankle Orthopaedic fixation plate, non-bioabsorbable, sterile ()[id number] FDA Start: 10-09-2020 ORIF, fracture, ankle Orthopaedic bone screw, non-bioabsorbable, non-sterile ()[id number] FDA Start: 10-09-2020 ORIF, fracture, ankle SCREW CORTEX 2.7MM X 40MM FDA Start: 10-23-2020 ORIF, fracture, ankle CANCELLOUS COARSE 7.5CC FDA Start: 12-05-2020 ORIF, fracture, ankle Orthopaedic bone screw, non-bioabsorbable, non-sterile ()[id number] FDA Start: 12-05-2020 ORIF, fracture, ankle Orthopaedic bone screw, non-bioabsorbable, non-sterile ()[id number] FDA Start: 12-05-2020 ORIF, fracture, ankle Orthopaedic bone screw, non-bioabsorbable, non-sterile ()[id number] FDA Start: 12-05-2020 ORIF, fracture, ankle Orthopaedic bone screw, non-bioabsorbable, non-sterile ()[id number] FDA Start: 12-05-2020 ORIF, fracture, ankle Orthopaedic bone screw, non-bioabsorbable, non-sterile ()[id number] FDA Start: 10-23-2020 ORIF, fracture, ankle Orthopaedic bone screw, non-bioabsorbable, non-sterile ()[id number] FDA Start: 10-23-2020 ORIF, fracture, ankle CANCELLOUS COARSE 7.5CC FDA Start: 12-05-2020 ORIF, fracture, ankle Orthopaedic fixation plate, non-bioabsorbable, sterile ()[id number] FDA Start: 12-05-2020 ORIF, fracture, ankle Orthopaedic fixation plate, non-bioabsorbable, sterile ()[id number] FDA Start: 10-23-2020 ORIF, fracture, ankle Orthopaedic bone screw, non-bioabsorbable, non-sterile ()[id number] FDA Start: 12-05-2020 ORIF, fracture, ankle Orthopaedic bone screw, non-bioabsorbable, non-sterile ()[id number] FDA Start: 10-23-2020 ORIF, fracture, ankle Orthopaedic bone pin, non-bioabsorbable ()[id number] FDA Start: 10-09-2020 ORIF, fracture, ankle External orthopaedic fixation system reprocessed component ()[id number] FDA Start: 10-09-2020 ORIF, fracture, ankle Orthopaedic bone screw, non-bioabsorbable, non-sterile ()[id number] FDA Start: 10-09-2020 ORIF, fracture, ankle Orthopaedic bone screw, non-bioabsorbable, non-sterile ()[id number] FDA Start: 10-23-2020 ORIF, fracture, ankle Orthopaedic bone screw, non-bioabsorbable, non-sterile ()[id number] FDA Start: 10-23-2020 ORIF, fracture, ankle Orthopaedic bone screw, non-bioabsorbable, non-sterile ()[id number] FDA Start: 10-23-2020 ORIF, fracture, ankle Orthopaedic bone screw, non-bioabsorbable, non-sterile ()[id number] FDA Start: 10-23-2020 ORIF, fracture, ankle Orthopaedic fixation plate, non-bioabsorbable, sterile ()[id number] FDA Start: 10-23-2020 ORIF, fracture, ankle Orthopaedic bone screw, non-bioabsorbable, non-sterile ()[id number] FDA Start: 10-23-2020 ORIF, fracture, ankle SCREW [...] Implant Fix W/Sl Acl/Pcl [id number] Start: 07-01-2017 [place] Healix 5. 5mm Biocryl Rapide Suture Orthocord Needle - [id number] Start: 04-27-2018 Cable Lcp 1.7mm Stainless Steel 750mm Orthopedic Crimp Cerclage Sterile - [id number] Start: 04-27-2018 Head G7 40mm Bio lox Delta Femoral Hip - [id number] Start: 03-18-2017 Shell G7 56mm F Offset Hemisphere Osseoti Acetabular 4 Hole Limit Hip - [id number] Start: 04-27-2018 Liner G7 E1 40mm F Neutral Acetabular Antioxidant Infused Technology - [id number] Start: 03-18-2017 Liner G7 E1 40mm F Neutral Acetabular Antioxidant Infused Technology - [id number] Start: 04-27-2018 Screw G7 6.5mm D ome 25mm Acetabular Low Profile - [id number] Start: 04-27-2018 Cable Lcp 1.7mm Stainless Steel 750mm Orthopedic Crimp Cerclage Sterile - [id number] Start: 04-27-2018 Cable Lcp 1.7mm Stainless Steel 750mm Orthopedic Crimp Cerclage Sterile - [id number] Start: 04-27-2018 Shell G7 56mm F Offset Hemisphere Osseoti Acetabular 4 Hole Limit Hip - [id number] Start: 03-18-2017 Stem Taperloc 13 3d 17 High Offset Taper Pps 154mm Femoral Type 1 Complete - [id number] Start: 03-18-2017 Sleeve G7 +6mm Offset Taper Biolox Delta Centering Type 1 Option Hip - [id number] Start: 03-18-2017 Sleeve G7 +3mm Offset Taper Biolox Delta Centering Type 1 Option Hip - [id number] Start: 04-27-2018 Head G7 40mm Bio lox Delta Femoral Hip - [id number] Start: 04-27-2018 Stem Taperloc 13 3d 17 High Offset Taper Pps 154mm Femoral Type 1 Complete - [id number] Start: 04-27-2018 Functional Status Date Assessment Result Facility 04-28-2018 Are you deaf, or do you have serious difficulty hearing No 04/28/2018 3:58 PM Scarlet Mccarty RN No [facility] 04-28-2018 Are you blind, or do you have serious difficulty seeing, even when wearing glasses No 04/28/2018 3:58 PM Scarlet Mccarty, ABDULAZIZ No [facility] 04-28-2018 Do you have serious difficulty walking or climbing stairs Yes 04/28/2018 3:58 PM Scarlet Mccarty, ABDULAZIZ Yes [facility] 04-28-2018 Do you have difficul ty dressing or bathing Yes 04/28/2018 3:58 PM Scarlet Mccarty, ABDULAZIZ Yes [facility] 04-28-2018 Because of a physica l, mental, or emotional condition, do you have difficulty doing errands alone such as visiting a physician's office or shopping Yes 04/28/2018 3:58 PM Scarlet Mccarty, ABDULAZIZ Yes [facility] Mental Status Date Assessment Result Facility 04-28-2018 Because of a physica l, mental, or emotional condition, do you have serious difficulty concentrating, remembering, or making decisions No 04/28/2018 3:58 PM Scarlet Mccarty, ABDULAZIZ No [facility] Clinical Notes 01-02-2021 to 07-20-2024 Tita Marin APRN.HULL GRINDER - 07/20/2024 1:00 PM EDTTelephone Encounter - Kosmerl Medsec, Jocelyn - 07/18/2024 12:01 PM EDTTelephone Encounter - Kosmerl [facility], Jocelyn - 07/18/2024 12:01 PM EDT Note Date & Type Note Facility 07-20-2024 History of Presen t illness Narrative [facility] - FOLLOW UP EVALUATION - VIRTUAL VISIT Primary Movement Disorders Neurologist: Heriberto Carrera MD Primary Movement Disorders HUGO: Rio Alanis MD [address] [address] Dear Rio Alanis MD: I had the pleasure of seeing Mr. Boss for follow-up today. As you know he is a 58 year old right-handed male with a history of tremor predominant Parkinson disease since 2016. We had a visit using: [employer] I have communicated my name and active licensure. The patient's identity and physical location were verified at the time of this visit. Either the patient or their legal automotive sales representative has been informed of the risks and benefits of -- and alternatives to -- treatment through a remote evaluation and consents to proceed with the evaluation remotely. The patient consented to the use of ambient AI software for draft documentation of the visit consistent with [facility] s Notice of Privacy Practices. Subjective [...] Row Distance Health from 07/20/2024 in Neurological Restorationism Distance Health from 02/03/2024 in Neurological [facility]orationism Global Physical Health T Score 39.8 39.8 [...] Rasagiline 0.5mg 1 Level of service : 28964 (40-68 min). Time spent 65 min on the day of service, which included preparing to see the patient, zcaq-zp-jhnk patient care, completing clinical documentation, obtaining and/or [...] Tita Marin APRN.CNP documented in this encounter [facility] 07-20-2024 Note HNO ID: [id number] Author: TITA MARIN APRN.CNP Service: ? Author Type: Nurse Practitioner Type: Progress Notes Filed: 07/20/2024 15:34 Note Text: [facility] - FOLLOW UP EVALUATION - VIRTUAL VISIT Primary Movement Disorders Neurologist: Heriberto Carrera MD Primary Movement Disorders HUGO: Rio Alanis MD [address] [address] Dear Rio Alanis MD: I had the pleasure of seeing Mr. Boss for follow-up today. As you know he is a 58 year old right-handed male with a history of tremor predominant Parkinson disease since 2016. We had a visit using: [employer] I have communicated my name and active licensure. The patient's identity and physical location were verified at the time of this visit. Either the patient or their legal automotive sales representative has been informed of the risks and benefits of -- and alternatives to -- treatment through a remote evaluation and consents to proceed with the evaluation remotely. The patient consented to the use of ambient [employer] software for draft documentation of the visit consistent with [facility]?s Notice of Privacy Practices. Subjective During [...] Take by mo (more content not included)... [facility] 07-18-2024 Telephone encount er Note Pt is having surgery coming up and they need the last OV note faxed over. Faxed to [facility] at [phone]. [facility] 07-18-2024 Miscellaneous Notes Formattin g of this note might be different from the original. Pt is having surgery coming up and they need the last OV note faxed over. Faxed to [facility] at [phone]. documented in this encounter [facility] 07-14-2024 Telephone encount er Note Patient requests via Qwilthart refills as follows: [facility] JORDIN w/Dr. Carrera Requested Prescriptions Pending Prescriptions Disp Refills carbidopa-levodopa (SINEMET 25-100) 25-100 mg per tablet 225 tablet 1 Sig: TAKE 1 & 1/2 (ONE & ONE-HALF) TABLETS BY MOUTH 5 TIMES A DAY (6:30 AM, 9:30 AM, 12:30 PM, 3:30 PM AND 6:30 PM) Please review and advise. [facility] 07-14-2024 Miscellaneous Notes Formattin g of this note is different from the original. Patient requests via MyChart refills as follows: When approved Rx escribed to [facility]. 04/21/24 JORDIN w/Dr. Carrera Requested Prescriptions Pending Prescriptions Disp Refills carbidopa-levodopa (SINEMET 25-100) 25-100 mg per tablet 225 tablet 1 Sig: TAKE 1 & 1/2 (ONE & ONE-HALF) TABLETS BY MOUTH 5 TIMES A DAY (6:30 AM, 9:30 AM, 12:30 PM, 3:30 PM AND 6:30 PM) Please review and advise. [facility] documented in this encounter [facility] 05-09-2024 Telephone encount er Note Patient requests via MyChart refills as follows: [facility] 02/03/24 JORDIN whitley/Clair Amaya PA-C Requested Prescriptions Pending Prescriptions Disp Refills carbidopa-levodopa CR (SINEMET CR) 25-100 mg per tablet 90 tablet 3 Sig: Take 1 tablet by mouth at bedtime Please review and [facility]. [facility] 05-09-2024 Miscellaneous Notes Formattin g of [...] advise. Keena Warren documented in this encounter [facility] 05-02-2024 Evaluation note Diagnosis Onset Date Resolution GERD (gastroesophageal reflux disease) acute May 02 11:10am Screening for prostate cancer noneactive May 02 11:10am Screening for colon cancer noneactive May 02 11:10am Screening for cardiovascular condition noneactive May 02, 2024 11:10am Rash and nonspecific skin eruption noneactive June 20, 2024 9:05am [facility] Work Phone: 1(143) 524-209601-20-2025 Telephone encounter Note* Telephone Encounter - Kalina Johnson RN - 05/02/2024 12:06 PM EST Information faxed as requested [facility]01-20-2025 Miscellaneous Notes* Telephone Encounter - Kalina Johnson RN - 05/02/2024 12:06 PM EST Information faxed as requested documented in this encounterPromedica [facility]01-09-2025 Instructions* Patient Instructions* Heriberto Carrera MD [...] in 3 months virtually documented in this encounterPromedica [facility]01-09-2025 NoteHNO ID: [id number] Author: HERIBERTO CARRERA MD Service: ? Author Type: Physician Type: Progress Notes Filed: 04/21/2024 16:09 Note Text: [facility] - FOLLOW UP EVALUATION Rio Alanis MD [address] [facility] [address] [facility] [address] Dear Rio Alanis MD: I had the [...] Row Distance Health from 02/03/2024 in Neurological Restorationism Distance Health from 11/03/2022 in Neurological Restorationism Global Physical Health T Score 39.8 39.8 [...] person, place and time (more content not included)...[facility]01-09-2025 History of Present illness Narrative* Heriberto Carrera MD - 04/21/2024 11:07 AM EST [facility] - FOLLOW UP EVALUATION Rio Alanis MD [address] [address] Dear Rio Alanis MD: I had the [...] Row Distance Health from 02/03/2024 in Neurological Restorationism Distance Health from 11/03/2022 in Neurological Restorationism Global Physical Health T Score 39.8 39.8 [...] proprioception in all four extremities. Coordination Right: Eujjvu-sx-ojue normal. Rapid alternating movement normal.Left: Jugmeg-px-siuh normal. Rapid alternating movement normal. Gait Casual [...] < 50 would be worse than predicted, [id number] would be near predicted and > 50 [...] Associate Staff Movement disorders Center [facility] Cara Mcneal Final Year Medical Student documented in this encounterPromedica [facility]11-27-2024 Telephone encounter Note * Telephone Encounter - Keena Shafer - 03/09/2024 10:03 AM EST Patient requests via MyChart refills as follows: When approved Rx escribed to [facility]. 02/09/24 FUSekou w/Clair Amaya PA-C Requested Prescriptions Pending Prescriptions Disp Refills carbidopa-levodopa (SINEMET 25-100) 25-100 mg per tablet 225 tablet 3 Sig: TAKE 1 TABLET BY MOUTH 5 TIMES DAILY (6:30 AM, 9:30 AM, 12:30 PM, 3:30 PM and 6:30 PM) Please review and advise. Keena Warren [facility]11-27-2024 Miscellaneous Notes* Telephone Encounter - Keena Shafer - 03/09/2024 10:03 AM EST Patient requests via MyChart refills as follows: When approved Rx escribed to [facility]. 02/09/24 JORDIN whitley/Clair Amaya PA-C Requested Prescriptions Pending Prescriptions Disp Refills carbidopa-levodopa (SINEMET 25-100) 25-100 mg per tablet 225 tablet 3 Sig: TAKE 1 TABLET BY MOUTH 5 TIMES DAILY (6:30 AM, 9:30 AM, 12:30 PM, 3:30 PM and 6:30 PM) Please review and advise. Keena Warren documented in this encounterPromedica Fostoria [facility] Hospital11-14-2024 Telephone encounter Note * Telephone Encounter - Briana Douglass - 02/25/2024 4:29 PM EST Last appt 02/03/24 Clair Requested Prescriptions Pending Prescriptions Disp Refills mirtazapine (REMERON) 15 mg tablet 90 tablet 3 Sig: Take 1 tablet by mouth daily at bedtime. [facility]11-14-2024 Miscellaneous Notes* Telephone Encounter - Briana Douglass - 02/25/2024 4:29 PM EST Last appt 02/03/24 Clair Requested Prescriptions Pending Prescriptions Disp Refills mirtazapine (REMERON) 15 mg tablet 90 tablet 3 Sig: Take 1 tablet by mouth daily at bedtime. documented in this encounterPromedica Fostoria [facility]10-23-2024 NoteHNO ID: [id number] Author: CLAIR AMAYA PA-C Service: ? Author Type: Physician [employer] Operator Type: Progress Notes Filed: 02/03/2024 09:54 Note Text: [facility] - FOLLOW UP EVALUATION - VIRTUAL VISIT Rio Alanis MD [address] [address] Dear Rio Alanis MD: I had the pleasure of seeing Mr. Boss for follow-up today. As you know he is a 58 year old right-handed male with a history of tremor predominant Parkinson disease since 2016. We had a visit using: [employer] I have communicated my name and active licensure. The patient's identity and physical location were verified at the time of this visit. Either the patient or their legal automotive sales representative has been informed of the [...] Flowsheet Row Appointment from 02/03/2024 in Neurological Restorationism Distance Health from 11/03/2022 in Neurological Restorationism Global Physical Health T Score 39.8 39.8 Global Mental Health T Score 38.8 43.5 0-10 Standard Pain Scale 3 3 *PROMIS-10 scoring scale: mean = 50, over 50 is above average, under 50 is below average Objective General Physical Examination: Awake, alert, interactive, no acute distress. Only a limited general examination was done due to video format. Neurological E (more content not included)...[facility] 02-03-2024 History of Present illness Narrative* Clair Amaya PA-C - 02/03/2024 8:08 AM EDT [facility] - FOLLOW UP EVALUATION - VIRTUAL VISIT Rio Alanis MD [address] [address] Dear Rio Alanis MD: I had the [...] visit. Either the patient or their legal automotive sales representative has been informed of the [...] Flowsheet Row Appointment from 02/03/2024 in Neurological Restorationism Distance Health from 11/03/2022 in Neurological Restorationism Global Physical Health T Score 39.8 39.8 [...] CR 25/100 1 Level of service : 20340 (20-29 min). Time spent 28 min on [...] Sincerely, Clair Amaya PA-C documented in this encounterPromedica [facility]07-22-2024 Telephone encounter Note * Telephone Encounter [...] electronically to the patient's pharmacy. Jocelyn Menon, [employer] [facility]07-22-2024 Miscellaneous Notes* Telephone Encounter - Jocelyn [...] electronically to the patient's pharmacy. Jocelyn Menon, [employer] documented in this encounterPromedica Fostoria [facility] Hospital06-17-2024 Telephone encounter Note * Telephone Encounter - Briana Douglass - 09/28/2023 3:57 PM EDT Last appt 12/31/22 US Requested Prescriptions Pending Prescriptions Disp Refills carbidopa-levodopa (SINEMET 25-100) 25-100 mg per tablet 150 tablet 0 Sig: TAKE 1 TABLET BY MOUTH 5 TIMES DAILY (6:30 AM, 9:30 AM, 12:30 PM, 3:30 PM and 6:30 PM) [facility]06-17-2024 Miscellaneous Notes* Telephone Encounter - Briana Douglass - 09/28/2023 3:57 PM EDT Last appt 12/31/22 US Requested Prescriptions Pending Prescriptions Disp Refills carbidopa-levodopa (SINEMET 25-100) 25-100 mg per tablet 150 tablet 0 Sig: TAKE 1 TABLET BY MOUTH 5 TIMES DAILY (6:30 AM, 9:30 AM, 12:30 PM, 3:30 PM and 6:30 PM) documented in this encounterPromedica Fostoria [facility] Hospital04-04-2024 Miscellaneous Notes* Telephone Encounter - Briana Douglass - 07/16/2023 9:21 AM EDT Last appt 12/31/22 US Requested Prescriptions Pending Prescriptions Disp Refills carbidopa-levodopa (SINEMET 25-100) 25-100 mg per tablet 360 tablet 3 Sig: TAKE 1 TABLET BY MOUTH 5 TIMES DAILY (6:30 AM, 9:30 AM, 12:30 PM, 3:30 PM and 6:30 PM) documented in this encounterPromedica Fostoria [facility] Hospital09-20-2023 Instructions* Patient Instructions* Heriberto Carrera MD [...] or you can send a message through [employer]. You can also now schedule and select appointments through [employer]. Heriberto Carrera MD documented in this encounterPromedica Fostoria [facility] Hospital09-20-2023 History of Present illness Narrative* Heriberto Carrera MD - 12/31/2022 9:59 AM EDT [facility] - FOLLOW UP EVALUATION Rio Alanis MD [address] [facility] [facility] [address] [place] [address] Dear Rio Alanis MD: I had the [...] Associate Staff Movement disorders Center of [facility] documented in this encounterPromedica Fostoria [facility]05-16-2023 NotePROCEDURE: XR FOOT LT MIN 3 [...] Electronically authenticated by: SHIRLEY CASTILLO Date: 2022-08-26 10:49[facility]04-17-2023 Miscellaneous Notes* Telephone Encounter - Elda Roosevelt - 07/28/2022 8:02 AM EDT Request from patient requesting refill. Please E-Scribe to Ean. Last OV: 07/16/22 with US Future OV: None Requested Prescriptions Pending Prescriptions Disp Refills carbidopa-levodopa (SINEMET 25-100) 25-100 mg per tablet 360 tablet 3 Sig: TAKE 1 TABLET BY MOUTH 4 TIMES DAILY (8 AM, NOON, 4 PM, 8 PM) Elda S documented in this encounterPromedica Fostoria Community Hospital04-08-2023 NotePROCEDURE: XR FOOT LT MIN 3 [...] Electronically authenticated by: SAURAV KERNS Date: 2022-07-19 12:12[facility] Instructions* Patient Instructions* Heriberto Carrera MD - [...] At this point please send me a Social Pulse message so we can discuss future steps Try to exercise regularly as this has evidence for slowing down Parkinson disease. Aerobic exerciseis preferred (i.e. low resistance fast reps 30-40 minutes a day, 4 or more times per week). Suggested activities: recumbent exercise bike or elliptical. Follow up with me in 3 months via virtual visit documented in this encounterPromedica Fostoria [facility] Hospital04-05-2023 History of Present illness Narrative* Heriberto Carrera MD - 07/16/2022 2:14 PM EDT [facility] - NEW PATIENT EVALUATION Primary Care Provider: iRo Alanis MD [address] [address] Dear Rio Alanis MD: I had the [...] Row Office Visit from 07/16/2022 in Neurological Restorationism Global Physical Health T Score 42.3 Global [...] At this point please send me a Social [employer]ulse message so we can discuss future steps [...] Associate Staff Movement disorders Center of Neurological [facility] documented in this encounterPromedica Fostoria [facility] Hospital03-30-2023 NotePROCEDURE: XR FOOT LT MIN 3 [...] authenticated by: SHIRLEY CASTILLO Date: 2022-07-10 15:59[facility] [id number] Miscellaneous Notes* Telephone Encounter - CHRIS Reyes [...] please? Thank you, Laurence documented in this encounterPromedica Fostoria Community Hospital02-23-2023 NotePROCEDURE: XR ANKLE LT MIN 3 [...] Electronically authenticated by: SAURAV KERNS Date: 2022-06-05 08:24[facility]02-23-2023 NotePROCEDURE: XR ANKLE LT MIN 3 V, [...] Electronically authenticated by: SAURAV KERNS Date: 2022-06-05 08:24[facility]01-09-2023 Evaluation note* Encounter Date Diagnosis Assessment Notes [...] lower extremity, subsequent encounter (ICD-10 - T84.629D) [facility] Other 01-03-2023 NoteCONSULTATION CONSULTATION DATE: 04/15/2022 CHIEF [...] The patient will be sent to the [facility] with regards to Parkinson's treatment and education. 3. [facility] has been suggested to Boss with regards to the grieving process with the current diagnosis that the patient has. The patient understands, is hopeful and would like to proceed. These matters were discussed with Dr. Hart. CC Anna Muñoz, CINDY Gutierrez, [facility]12-06-2022 NoteCONSULTATION CONSULTATION DATE: 03/18/2022 CHIEF COMPLAINT: [...] patient understands and would like to proceed.[facility] [id number] NoteCONSULTATION PROCEDURE DATE: 03/18/2022 PREOPERATIVE DIAGNOSIS: Spasming [...] Will be followed up in the office.[facility] [id number] NotePROCEDURE: XR ANKLE LT MIN 3 V [...] Electronically authenticated by: SAURAV KERNS Date: 2022-03-12 17:48[facility]11-15-2022 NoteCONSULTATION CONSULTATION DATE: 02/25/2022 CHIEF COMPLAINT: Left [...] to proceed. CC: Vickie Hart, EDE Muñoz, [facility]11-15-2022 NoteCONSULTATION PROCEDURE DATE: 02/25/2022 PREOPERATIVE [...] up in the office in two weeks.[facility] [id number] NotePROCEDURE: XR ANKLE LT MIN 3 V [...] Electronically authenticated by: SAURAV KERNS Date: 2022-01-29 21:14[facility]09-12-2022 Evaluation note* Encounter Date Diagnosis Assessment Notes [...] in. Follow-up in 3 to 4 months. [facility] Other 08-15-2022 Evaluation note* Encounter Date Diagnosis Assessment Notes Treatment Notes Treatment Clinical Notes Nov, MSSA (methicillin susceptible Staphylococcus aureus) infection (ICD-10 - A49.01) [facility] Other 07-23-2022 NotePROCEDURE: XR ANKLE LT MIN [...] Electronically authenticated by: SAURAV KERNS Date: 2021-11-02 20:07[facility]07-14-2022 Evaluation note* Encounter Date Diagnosis Assessment Notes [...] Oct, Chronic antibiotic suppression (ICD-10 - Z79.2) [facility] Other 06-24-2022 NotePROCEDURE: XR ANKLE LT MIN [...] Electronically authenticated by: SAURAV KERNS Date: 2021-10-04 16:26[facility]06-15-2022 Evaluation note* Encounter Date Diagnosis Assessment Notes Treatment Notes Treatment Clinical Notes Sep, MSSA (methicillin susceptible Staphylococcus aureus) infection (ICD-10 - A49.01) [facility] Other 05-27-2022 NotePROCEDURE: XR ANKLE LT MIN [...] Electronically authenticated by: SAURAV KERNS Date: 2021-09-06 10:32[facility]05-12-2022 Evaluation note* Encounter Date Diagnosis Assessment Notes Treatment Notes Treatment Clinical Notes August, MSSA (methicillin susceptible Staphylococcus aureus) infection (ICD-10 - A49.01) [facility] Other 05-04-2022 Evaluation note* Encounter Date Diagnosis [...] We will check C-reactive protein as well. [facility] Other 04-18-2022 Evaluation note* Encounter Date Diagnosis [...] lower extremity, initial encounter (ICD-10 - T84.7XXA) [facility] Other 03-08-2022 NoteMicrobiology PROCEDURE: Blood Culture Charcoal [R1] SOURCE: Blood BODY SITE: Arm L COLLECTED DATE/TIME: 06/15/2021 16:32 EST RECEIVED DATE/TIME: 06/15/2021 23:47 EST START DATE/TIME: 06/15/2021 23:47 EST FREE TEXT SOURCE: Ryan Castro DO, DO, Ryan Leggett FINAL REPORTS Final Report [] Verified Date/Time: 06/18/2021 13:52 EST Staphylococcus aureus In 2 of 2 blood culture bottles drawn. Isolated from aerobic and anaerobic bottles Preliminary gram stain of gram positive cocci in clusters Result called to Diann Castanon (Isaak Hodge) by [facility] and results read back for confirmation [...] Locations R1: This test was performed at: [facility], [address] [place] [address], [phone] , , AdgrxhMercy Health Willard HospitalComment on above:Performed By: #### [id number] ####[facility] [address] [place], [place] [id number] NoteMicrobiology PROCEDURE: Blood Culture Charcoal [R1] SOURCE: [...] in clusters Result called to Diann Castanon ([facility]) by [facility] and results read back for confirmation [...] Locations R1: This test was performed at: [facility], [address] [place] [address], [id number] , , JljhrmMer[facility] Health Willard HospitalComment on above:Performed By: #### [id number] ####[facility] [id number] [place], [place] [id number] Evaluation note* Encounter Date Diagnosis Assessment Notes Treatment Notes Treatment Clinical Notes Jan, Displaced pilon fracture of left tibia, subsequent encounter for closed fracture with malunion (ICD-10 - S82.872P) [facility] [employer] Other 09-29-2021 Evaluation note* Encounter Date Diagnosis Assessment Notes Treatment Notes Treatment Clinical Notes Dec, Displaced pilon fracture of left tibia, subsequent encounter for closed fracture with malunion (ICD-10 - S82.872P) [facility] [employer] Other 09-22-2021 Evaluation note* Encounter Date Diagnosis [...] 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 Tobacco cessation program at [facility] has been recommended and offered. This discussion was limited to 5 minutes. [employer] Other Evaluation noteNo InformationNort [employer] Other Evaluation noteNo assessment information available [facility] Work Phone: [employer] note* Diagnosis Parkinson's disease (HCC)- Primary Paralysis agitans Anxiety Anxiety state, unspecified [facility] [place] [facility] Diagnosis Parkinson's disease- Primary Paralysis agitans [facility] [place] [facility] Diagnosis Osteoarthritis of left hip- Primary Osteoarthrosis, unspecified whether generalized or localized, pelvic region and thigh Status post total replacement of left hip Post-op pain Other acute postoperative pain Primary osteoarthritis of left hip Primary localized osteoarthrosis, pelvic region and thigh Hyperkalemia Hyperpotassemia Parkinson's disease without dyskinesia, with fluctuating manifestations (HCC)- Primary [facility] [place] [facility]* Diagnosis Osteoarthritis of left hip- Primary Osteoarthrosis, unspecified whether generalized or localized, pelvic region and thigh Status post total replacement of left hip Post-op pain Other acute postoperative pain Primary osteoarthritis of left hip Primary localized osteoarthrosis, pelvic region and thigh Hyperkalemia Hyperpotassemia Anxiety- Primary Anxiety state, unspecified Screening due documented in this encounter [facility] [place] [facility]* Diagnosis Osteoarthritis of left hip- Primary Osteoarthrosis, unspecified whether generalized or localized, pelvic region and thigh Status post total replacement of left hip Post-op pain Other acute postoperative pain Primary osteoarthritis of left hip Primary localized osteoarthrosis, pelvic region and thigh Hyperkalemia Hyperpotassemia Parkinson's disease without dyskinesia, with fluctuating manifestations (HCC) [facility] [place] [facility]* Diagnosis Osteoarthritis of left hip- Primary [...] legs syndrome (RLS) documented in this encounter [facility] note* Diagnosis Onset Date Resolution Status Admit Date GERD (gastroesophageal reflux disease) acute May 02 11:10am Screening for colon cancer noneactiv e May 02, 2024 11:10am [facility] Work Phone: Evaluation note* Diagnosis Osteoarthritis of left hip- Primary Osteoarthrosis, unspecified whether generalized or localized, pelvic region and thigh Status post total replacement of left hip Post-op pain Other acute postoperative pain Primary osteoarthritis of left hip Primary localized osteoarthrosis, pelvic region and thigh Hyperkalemia Hyperpotassemia Parkinson's disease without dyskinesia, with fluctuating manifestations (HCC) documented [facility] [place] [facility]* Diagnosis Osteoarthritis of left hip- Primary Osteoarthrosis, unspecified whether generalized or localized, pelvic region and thigh Status post total replacement of left hip Post-op pain Other acute postoperative pain Primary osteoarthritis of left hip Primary localized osteoarthrosis, pelvic region and thigh Hyperkalemia Hyperpotassemia Parkinson's disease without dyskinesia, with fluctuating manifestations (HCC) documented in this encounter [facility] note* Diagnosis Osteoarthritis of left hip- Primary Osteoarthrosis, unspecified whether generalized or localized, pelvic region and thigh Status post total replacement of left hip Post-op pain Other acute postoperative pain Primary osteoarthritis of left hip Primary localized osteoarthrosis, pelvic region and thigh Hyperkalemia Hyperpotassemia Parkinson's disease without dyskinesia, with fluctuating manifestations (HCC) documented in this encounter [facility] note* Diagnosis Osteoarthritis of left hip- [...] Insomnia, unspecified type documented in this encounter [facility] general Narrative - Reported* Type Description Date Medical History H/o Kidney Stones - sees Dr. Phuc beck Surgical History Appendectomy 20 yrs ago Surgical History Right shoulder arthroscopy 5 yr s ago [employer] Other History general Narrative - Reported* Type Description Date Medical History H/o Kidney Stones - sees Dr. Phuc beck Surgical History Appendectomy 20 yrs ago Surgical History Right shoulder arthroscopy 5 yr s ago Surgical History ankle surgery [employer] Other Summary Purpose Family History Relationship Condition [...] 2017 10:02am Hospital Course Note HNO ID: [id number] Author: Camille Joseph) Veronica Service: Orthopaedic Surgery Author Type: Physician [employer] Operator Type: Discharge Summaries Filed: 04/29/2018 2:37 PM [...] nonspecific skin eruption June 20, 2024 9:05am Chief Complaint Admit Date Est care new patient May 02, 2024 11:10am z12.5 z13.6 May 06, 2024 1 0:28am on both legs June 20, 2024 9:0 5am Unknown July 26, 2024 10: 47am Reason for Referral Specialty Diagnoses / Procedures Referred By Contac t Referred To Contact NEUROLOGICAL SABIANIST Diagnoses Parkinson's disease without dyskinesia, with fluctuating manifestations (HCC) RLS (restless legs syndrome) Procedures PROVIDER ORDERED FOLLOW UP OFFICE/OUTPATIENT NEW HIGH MDM 60 MINUTES Heriberto Carrera MD [address] [place] [address] [address] [place] [address] Referral ID Status Reason Start Date Expiration Date Visits Requested Visits Authorized [id number] Authorized PCP Requested Referral 04/21/2024 01/19/2025 1 1 Specialty Diagnoses / Procedures Referred By Contac t Referred To Contact Diagnoses Parkinson's disease without dyskinesia, with fluctuating manifestations (HCC) Neuropathy RLS (restless legs syndrome) Heriberto Carrera MD [address] [place] [address] Referral ID Status Reason Start Date Expiration Date V isits Requested Visits Authorized [id number] Authorized 01/22/2024 04/21/2025 1 1 Specialty Diagnoses / Procedures Referred By Contac t Referred To Contact Diagnoses Parkinson's disease without dyskinesia, with fluctuating manifestations (HCC) Procedures PROVIDER ORDERED FOLLOW UP OFFICE/OUTPATIENT NEW HIGH MDM 60 MINUTES Clair Amaya PA-C [address] [place] [address] Referral ID Status Reason Start Date Expiration Date Visits Requested Visits Authorized [id number] Authorized PCP Requested Referral 05/05/2024 02/02/2025 1 1 Specialty Diagnoses / Procedures Referred By Contac t Referred To Contact Psychology Diagnoses Parkinson's disease Procedures CONSULT TO PSYCHOLOGY OFFICE/OUTPATIENT [facility] 60-74 MINUTES Heriberto Carrera MD [address] [place] [address] Referral ID Status Reason Start Date Expiration Date Visits Requested Visits Authorized [id number] Pending Review PCP Requested Referral 12/31/2022 12/31/2023 1 1 Specialty Diagnoses / Procedures Referred By Contac t Referred To Contact Diagnoses Anxiety Parkinson's disease (HCC) Procedures PROVIDER ORDERED FOLLOW UP OFFICE/OUTPATIENT [facility] 60-74 MINUTES Heriberto Carrera MD [address] [place] [address] Referral ID Status Reason Start Date Expiration Date Visits Requested Visits Authorized [id number] Authorized PCP Requested Referral 07/16/2022 10/14/2022 1 1 Additional Source Comments (unrecognized sect ion and content) No Status Records FoundNo Status Records FoundNo Status Records FoundNo Status Records FoundNo Status Records FoundNo Status Records FoundNo Status Records FoundNo Status Records Found INFORMATION SOURCE (unrecogn ized section and content) DATE CREATED AUTHOR 05/12/2018 [facility] DATE CREATED AUTHOR AUTHOR'S ORGANIZ ATION 05/12/2018 [facility] DATE CREATED AUTHOR AUTHOR'S ORGANIZ ATION 11/05/[address] [facility] DATE CREATED AUTHOR AUTHOR'S ORGANIZ ATION 08/27/2022 [facility] DATE CREATED AUTHOR AUTHOR'S ORGANIZ ATION 04/18/2023 [facility] DATE CREATED AUTHOR AUTHOR'S ORGANIZ ATION [facility] DATE CREATED AUTHOR AUTHOR'S ORGANIZ ATION 08/01/2023 [facility] DATE CREATED AUTHOR AUTHOR'S ORGANIZ ATION 07/22/2024 [facility] REASON FOR VISIT (unrecogniz ed section and content) Reason Comments Follow Up Specialty Diagnoses / Procedures Referred By Contac t Referred To Contact NEUROLOGICAL SABIANIST Diagnoses Parkinson's disease without dyskinesia, with fluctuating manifestations (HCC) RLS (restless legs syndrome) Procedures PROVIDER ORDERED FOLLOW UP OFFICE/OUTPATIENT NEW HIGH MDM 60 MINUTES Heriberto Carrera MD [address] [place] [address] Phone: tel: fax: [facility] [address] [place] [address] Phone: tel:[phone] Referral ID Status Reason Start Date Expiration Date V isits Requested Visits Authorized [id number] Closed PCP Requested Referral 04/21/2024 01/19/2025 1 [...] HIGH MDM 60 MINUTES Clair Amaya PA-C [address] [place] [address] Referral ID Status Reason Start Date Expiration Date V isits Requested Visits Authorized [id number] Closed PCP Requested Referral 05/05/2024 02/02/2025 1 1 Reason Onset Date Comments Refill Request 05/08/2024 Reason Onset Date Comments Refill Request 07/14/2024 Reason Comments Release of Information Care Teams (unrecognized sec tion and content) Team Status: Inactive Member Role Status Dates Anna Muñoz NP-Danielle Primary Care Provider Active Vickie Hart DPM MS Attending Provider Active Team Status: Active Member Role Status Dates JALYN Waite Primary Care Provider Active Reid Fair DPM Attending Provider Active Team Status: Inactive Member Role Status Dates Anna Esperanza Wanda , IMPROVEMENT ADVISOR-C Primary Care Provider Active Evelin Oliver PA-C Attending Provider Active Team Status: Inactive Member Role Status Dates Anna Muñoz IMPROVEMENT ADVISOR-C Primary Care Provider Active James Rodriguez DO Attending Provider Active Team Status: Active Member Role Status Dates Anna Muñoz IMPROVEMENT ADVISOR-C Primary Care Provider Active Team Status: Inactive Member Role Status Dates Anna Muñoz IMPROVEMENT ADVISOR-C Primary Care Provider Active Reid Fair DPM Attending Provider Active Rn Med Surg Relationship Specialty Start Date End Date Rio Alanis [address] [facility] [address] [place] [phone] PCP - General Family Medicine 03/18/17 Princess Che PA-C [address] [id number] Referring Neurology 05/26/22 Rn Med Surg Relationship Specialty Start Date End Date Rio Alanis [address] [place] [phone] PCP - General Family Medicine 03/18/17 Princess Che PA-C [address] [address] Referring Neurology 05/26/22 Rn Med Surg Relationship Specialty Start Date End Date Rio Alanis [address] [phone] PCP - General Family Medicine 03/18/17 Princess Che PA-C [address] [phone] Referring Neurology 05/26/22 Rn Med Surg Relationship Specialty Start Date End Date Rio Alanis [address] [facility] [address] [place] [phone] PCP - General Family Medicine 03/18/17 Princess Che PA-C [address] [place] [phone] Referring Neurology 05/26/22 Team Status: Inactive Member Role Status Dates Vickie Hart DPM MS Attending Provider Active Start: July 23, 2023 End: July 23, 2023 Rn Med Surg Relationship Specialty Start Date End Date Rio Alanis [address] [phone] PCP - General Family Medicine 03/18/17 Princess Che PA-C [address] [place] [id number] Referring Neurology 05/26/22 Rn Med Surg Relationship Specialty Start Date End Date Rio Alanis [address] [phone] PCP - General Family Medicine 03/18/17 Princess Che PA-C [address] [address] Referring Neurology 05/26/22 Rn Med Surg Relationship Specialty Start Date End Date Rio Alanis [address] [phone] PCP - General Family Medicine 03/18/17 Princess Che PA-C [address] [id number] Referring Neurology 05/26/22 Rn Med Surg Relationship Specialty Start Date End Date Rio Alanis [address] [phone] PCP - General Family Medicine 03/18/17 Princess Che PA-C [address] [phone] Referring Neurology 05/26/22 Rn Med Surg Relationship Specialty Start Date End Date Rio Alanis [address] [phone] PCP - General Family Medicine 03/18/17 Princess Che PA-C [address] [place] [id number] Referring Neurology 05/26/22 Rn Med Surg Relationship Specialty Start Date End Date Rio Alanis [address] [place] [phone] PCP - General Family Medicine 03/18/17 Princess Che PA-C [address] [place] [id number] Referring Neurology 05/26/22 Rn Med Surg Relationship Specialty Start Date End Date Rio Alanis [address] [place] [phone] PCP - General Family Medicine 03/18/17 Princess Che PA-C [address] [phone] Referring Neurology 05/26/22 Team Status: Active Member Role Status Dates Clare Brandt , Primary Care Provider Active Team Status: Inactive Member Role Status Dates Clare Brandt DO Primary Care Provid er, Attending Provider Active Start: May 02, 2024 End: May 02, 2024 Rn Med Surg Relationship Specialty Start Date End Date Rio Alanis [address] [phone] PCP - General Family Medicine 03/18/17 Princess Che PA-C [address] [place] [id number] Referring Neurology 05/26/22 Team Status: Inactive Member Role Status Dates Clare Brandt DO Primary Care Provid er, Attending Provider Active Start: May 06, 2024 End: May 06, 2024 Team Status: Inactive Member Role Status Dates Clare Brandt DO Primary Care Provid er, Attending Provider Active Start: June 20, 2024 End: June 20, 2024 Rn Med Surg Relationship Specialty Start Date End Date Rio Alanis [address] [phone] PCP - General Family Medicine 03/18/17 Princess Che PA-C [address] [place] [id number] Referring Neurology 05/26/22 Rn Med Surg Relationship Specialty Start Date End Date Rio Alanis [address] [phone] PCP - General Family Medicine 03/18/17 Princess Che PA-C [address] [place] [id number] Referring Neurology 05/26/22 Rn Med Surg Relationship Specialty Start Date End Date Rio Alanis [address] [phone] PCP - General Family Medicine 03/18/17 Princess Che PA-C [address] [place] [address] Referring Neurology 05/26/22 Team Status: Inactive Member Role Status Dates Clare Brandt DO Primary Care Provider Active Start: July 26, 2024 End: July 26, 2024 Vickie Hart DPM MS Attending Provider Active Start: July 26, 2024 End: July 26, 2024 Goals (unrecognized section and content) Goals may be documented in a n alternate section Source Comments (unrecognize d section and content) In the event this informatio n is protected by the Federal Confidentiality of Alcohol and Drug Abuse Patient Records regulations: The Federal rules restrict any use of the information to criminally investigate or prosecute any alcohol or drug abuse patient.[facility] the event this information is protected by the Federal Confidentiality of Alcohol and Drug Abuse Patient Records regulations: The Federal rules restrict any use of the information to criminally investigate or prosecute any alcohol or drug abuse patient.[facility] the event this information is protected by the Federal Confidentiality of Alcohol and Drug Abuse Patient Records regulations: The Federal rules restrict any use of the information to criminally investigate or prosecute any alcohol or drug abuse patient.[facility] the event this information is protected by the Federal Confidentiality of Alcohol and Drug Abuse Patient Records regulations: The Federal rules restrict any use of the information to criminally investigate or prosecute any alcohol or drug abuse patient.[facility] the event this information is protected by the Federal Confidentiality of Alcohol and Drug Abuse Patient Records regulations: The Federal rules restrict any use of the information to criminally investigate or prosecute any alcohol or drug abuse patient.[facility] the event this information is protected by the Federal Confidentiality of Alcohol and Drug Abuse Patient Records regulations: The Federal rules restrict any use of the information to criminally investigate or prosecute any alcohol or drug abuse patient.[facility] the event this information is protected by the Federal Confidentiality of Alcohol and Drug Abuse Patient Records regulations: The Federal rules restrict any use of the information to criminally investigate or prosecute any alcohol or drug abuse patient.[facility] Hospital[facility] the event this information is protected by the Federal Confidentiality of Alcohol and Drug Abuse Patient Records regulations: The Federal rules restrict any use of the information to criminally investigate or prosecute any alcohol or drug abuse patient.[facility] Hospital[facility] the event this information is protected by the Federal Confidentiality of Alcohol and Drug Abuse Patient Records regulations: The Federal rules restrict any use of the information to criminally investigate or prosecute any alcohol or drug abuse patient.[facility] the event this information is protected by the Federal Confidentiality of Alcohol and Drug Abuse Patient Records regulations: The Federal rules restrict any use of the information to criminally investigate or prosecute any alcohol or drug abuse patient.[facility] Hospital[facility] the event this information is protected by the Federal Confidentiality of Alcohol and Drug Abuse Patient Records regulations: The Federal rules restrict any use of the information to criminally investigate or prosecute any alcohol or drug abuse patient.[facility] Hospital[facility] the event this information is protected by the Federal Confidentiality of Alcohol and Drug Abuse Patient Records regulations: The Federal rules restrict any use of the information to criminally investigate or prosecute any alcohol or drug abuse patient.[facility] Hospital[facility] the event this information is protected by the Federal Confidentiality of Alcohol and Drug Abuse Patient Records regulations: The Federal rules restrict any use of the information to criminally investigate or prosecute any alcohol or drug abuse patient.[facility] the event this information is protected by the Federal Confidentiality of Alcohol and Drug Abuse Patient Records regulations: The Federal rules restrict any use of the information to criminally investigate or prosecute any alcohol or drug abuse patient.[facility] Hospital[facility] the event this information is protected by the Federal Confidentiality of Alcohol and Drug Abuse Patient Records regulations: The Federal rules restrict any use of the information to criminally investigate or prosecute any alcohol or drug abuse patient.[facility] Hospital[facility] the event this information is protected by the Federal Confidentiality of Alcohol and Drug Abuse Patient Records regulations: The Federal rules restrict any use of the information to criminally investigate or prosecute any alcohol or drug abuse patient.[facility] Hospital[facility] the event this information is protected by the Federal Confidentiality of Alcohol and Drug Abuse Patient Records regulations: The Federal rules restrict any use of the information to criminally investigate or prosecute any alcohol or drug abuse patient.[facility] Hospital[facility] the event this information is protected by the Federal Confidentiality of Alcohol and Drug Abuse Patient Records regulations: The Federal rules restrict any use of the information to criminally investigate or prosecute any alcohol or drug abuse patient.[facility] Hospital[facility] the event this information is protected by the Federal Confidentiality of Alcohol and Drug Abuse Patient Records regulations: The Federal rules restrict any use of the information to criminally investigate or prosecute any alcohol or drug abuse patient.[facility] FOR RECORDS PERTAINING TO PATIENTS WHO [...] BE BASED ON THE PRIMARY CLINICAL RECORDS. [facility] [employer] [facility]. provides no warranty or guarantee of the accuracy or completeness of information in this document.
== END 2024-07-27 08:31 | disposition home or self-care (01) ==
LOC: EC 08:30 → WC 08:34
PROVIDERS: PCP Family Medicine; Visit Provider Physician Assistant
DX: M20.12 Hallux valgus (acquired), left foot (principal)
CPT/HCPCS: G0463

== ENCOUNTER 2024-08-05 09:45 | Outpatient (OUT) | payer OTHER, SELFPAY | END 2024-08-05 09:46 | disposition home or self-care (01) | LOC: WC 09:45 | PROVIDERS: PCP Family Medicine; Visit Provider Podiatrist Foot & Ankle Surgery | DX: Z89.412 Acquired absence of left great toe (principal) | CPT/HCPCS: G0463 ==

== ENCOUNTER 2024-08-23 10:29 | Outpatient (OUT) | payer OTHER, SELFPAY | END 2024-08-23 10:30 | disposition home or self-care (01) | LOC: WC 10:29 | PROVIDERS: PCP Family Medicine; Visit Provider Physician Assistant | DX: Z89.412 Acquired absence of left great toe (principal) | CPT/HCPCS: G0463 ==

== ENCOUNTER 2024-09-07 13:05 | Outpatient (OUT) | payer OTHER, SELFPAY | END 2024-09-07 13:06 | disposition home or self-care (01) | LOC: WC 13:06 | PROVIDERS: PCP Family Medicine; Visit Provider Physician Assistant | DX: Z89.412 Acquired absence of left great toe (principal) | CPT/HCPCS: G0463 ==